=== PATIENT | male | born 1955 | race Caucasian/White ===

== ENCOUNTER 2017-08-30 08:51 | Emergency (ER) | payer MEDICAID ==
--- OUTSIDE RECORDS SUMMARY | 2017-08-30 09:17 | XMS REPORT ---
:1955 External Reference #:[id number] Author Organization [facility] Address [address] [address] Phone [phone] Care Team Providers Name Role Phone Kvng Yanez MD Primary Care Physician Unavailable Payers Type Date Identification Numbers Payment Provider Subscriber Medicaid Effective: Policy Number: [id number] Medicaid Rojas Weaver 2015 Group Name: [id number] [address] PayID: [id number] [place] [address] Medigap Part B Effective: 2013 Policy Number: [id number] Medicaid Rojas Weaver Expires: 2015 PayID: [id number] [address] [place] [address] Workers Compensation Onset: 2011 Policy Number: Brian Weaver [id number] PayID: [id number] [address] [place] [address] Problems Date Description Provider Status Onset: 04/15/2016 Malignant tumor of pancreatic Josse Gomez M.D. Active duct Onset: 12/21/2011 Type II diabetes mellitus Josse Gomez M.D. Active uncontrolled Onset: 05/10/2016 Persistent microalbuminuria Kvng Yanez, Lio associated with type 2 diabetes Sara,FACP mellitus Onset: 04/23/2012 Thrombocytopenic disorder Josse Gomez M.D. Active Onset: 04/23/2012 Anemia Josse Gomez M.D. Active Onset: 04/20/2011 Amato's esophagus Josse Gomez M.D. Active Onset: 04/20/2011 Irritable bowel syndrome Josse Gomez M.D. Active Onset: 04/20/2011 Essential hypertension Josse Gomez M.D. Active Onset: 04/20/2011 Hyperlipidemia Josse Gomez M.D. Active Onset: 04/20/2011 Obesity Josse Gomez M.D. Active Onset: 04/20/2011 Disorder of lumbar disc Josse Gomez M.D. Active Onset: 04/20/2011 Insomnia Josse Gomez M.D. Active Onset: 04/20/2011 Gastroesophageal reflux disease Josse Gomez M.D. Active Onset: 06/21/2011 Lymphedema Josse Gomez M.D. Active Onset: 06/21/2011 Joint effusion of the lower leg Josse Gomez M.D. Active Onset: 07/12/2011 Cervical disc disorder Josse Gomez M.D. Active Onset: 07/12/2011 Shoulder joint pain Josse Gomez M.D. Active Onset: 08/16/2011 Derangement of medial meniscus Josse Gomez M.D. Active Onset: 10/05/2011 Mixed hyperlipidemia Josse Gomez M.D. 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 Inactive Inactive: 05/10/2016 Onset: 04/20/2011 Impending infarction Phuc Rivera JR., M.D. Inactive Inactive: 05/10/2016 Onset: 04/15/2016 Type 2 diabetes mellitus with Josse Gomez M.D. Inactive diabetic polyneuropathy Inactive: 05/10/2016 Onset: 12/05/2012 Cellulitis Josse Gomez M.D. Resolved Resolved: 05/20/2016 Family History Date Family Member(s) Problem(s) Comments Father Coronary Artery Disease (CAD) Mother Diabetes Type II Siblings 4 2 now First Brother due to [place] () Second Brother due to [place] () Social History Type Date Description Comments Marital Status Single Lives With Alone Occupation Disabled Cigarette Use Former Cigarette Smoker ETOH Use Denies alcohol use Smoking Patient is a former smoker Quit 1995 Recreational Drug Use Regularly uses Marijuana Smoking Started smoking at 14, light smoker off and on Daily Caffeine Does Not Consume Caffeine Exercise Type/Frequency Exercises regularly Walks and works with [employer] Allergies, Adverse Reactions, Alerts Date Description Reaction Status Severity Comments 01/19/2011 Quinine active Hives 01/19/2011 Celebrex active 01/19/2011 Lyrica active 05/26/2015 Lyrica S.O.B, Swelling in feet and hands active Mild Medications Medication Date Status Form Strength Qnty SIG Indications Ordering Provider Diclofenac 08/28/ Active Tablets DR 75mg 40tabs take 1 S43.422A Ashely Sodium 2018 tablet Narvaez, twice a day [employer] with food [place] 08/28/ Active Tablets 5-325mg 30tabs 1 tabs S43.422A Ashely 2018 three times Narvaez, a day as [employer] needed pain Marijuana Oil 06/22/ Active 2 puffs Kvng (Eldon) 2016 before each Tala Yanez, meal, M.DJagruti,FACP vaporized Spironolacton 06/22/ Active Tablets 25-25mg 90tabs 1 by mouth I10 Jed Valles e/Hydrochloro 2017 every Tala Yanez, thiazide morning M.D.,FACP BD Insulin 04/25/ Active Misc 29G X 1/2" 150uni use up to E11.65 Jed Valles Syringe 2017 1 ML ts five times Tala Yanez, Safetyglide/1 daily as M.D.,FACP ML/29G X 1/2" directed Humalog 02/27/ Active Solution 100Unit/ML 15ml 10 units sc Kvng Braxton 2017 Pen-Inject qac 2 times Tala Yanez, a day M.D.,FACP breakfast and lunch, and 12 units before dinner Magnesium 02/27/ Active Tablets 400mg 60tabs 1 by mouth Kvng Oxide 2017 twice a day Tala Yanez M.D.,FACP Amlodipine 11/28/ Active Tablets 2.5mg 90tabs 1 by mouth Kvng Besylate 2017 every day Tala Yanez M.D.,FACP Simvastatin 11/28/ Active Tablets 40mg 90tabs take one Kvng 2017 tablet by Tala Yanez, mouth at M.D.,FACP bedtime Levemir 04/25/ Active Solution 100Unit/ML 45ml 45 units in E11.42 Jed Valles Flextouch 2016 Pen-Inject the in the D. Renata, morning M.D.,FACP & inject 40 units daily at bedtime E11.65 Fluticasone 09/10/2015 Active Suspension 50mcg/Act 1units 2 sprays J30.9 Christa Propionate each Be, nostril M.D. everyday prn Lisinopril 10/29/2013 Active Tablets 40mg 90tabs Take One E11.65 Clay- Dana Tablet By storm Edgar Mouth Renata, Every Day M.D.,FAC P Omeprazole 05/07/[address] 20mg 90caps 1 by K21.9 Christa mouth Be, every day M.D. Metoprolol 11/30/2011 Active Tablets 25mg 270tabs take 1 Clay-Dana Tartrate and 1/2 l DJagruti tablets [place], by mouth M.D.,FAC two times P a day Freestyle 05/24/2011 Active 100units use as E11.65 Ronak Lite Test directed Irving, Strip three [employer] times a day or as needed dx: e11.65 BD Pen 01/25/2011 Active Misc 29G X 150units use as E11.65 Clay-Dana Needle/Ultraf 12.7mm directed storm Edgar ine/29G X with [place], 12.7mm novolog M.D.,FAC and P levimir Aspirin Ec Active Tablets DR 81mg 90tabs 1 tablet E11.65 Unknown Lo-Dose daily. Bethanechol Active Tablets 25mg 120tabs take one Clay-Dana Chloride tablet by l Tala mouth Kilgore, four M.D.,FAC times a P day Metformin HCL Active Tablets 1000mg 180tabs Take One E11.42 Clay-Dana Tablet By storm Edgar Mouth [place]ore, Twice A M.D.,FAC Day P E11.65 Creon Active Caps [id number] 270caps Take 1 To 3 Jed Valles Part Capsules By Tala Yanez Mouth 5 Minutes M.D.,FACP Before A Meal Jardiance 11/28/2016 Hx Tablets 10mg 30tabs 1 by mouth Kvng - every night D. Renata, 02/27/2017 M.D.,FACP Humalog 08/29/2016 Hx Solution 100Unit/ML 15ml BS 0-150 no E Kvng Hughesikpen - Pen-Inject units, 1 D. Renata, 10/20/2016 151-200=2 1 M.D.,FACP units, . 201-250=4 4 units, 2 251-300=6 units, 301-350=8 units > 351 call MD Patton 07/01/2016 Hx Tablets 20mg 7tabs take 1 tablet Kvng - every morning DJagruti Yanez, 10/20/2016 for 1 wk M.D.,FACP Magnesium 05/09/2016 Hx Capsules 400mg 60caps by mouth twice E Ronak Oxide - day 8 Irving, [employer] 07/01/2016 3 . 4 2 Spironolacto 05/09/2016 Hx Tablets 25mg 30tabs Take One Tablet I Jed garcia - By Mouth Every 1 D. Renata, 06/22/2017 Day 0 M.D.,FACP Simvastatin 05/04/2016 Hx Tablets 80mg 90tabs take one tablet Josse - by mouth at [facility], 11/28/2016 bedtime M.D. Humalog 04/25/2016 Hx Solution 100Unit/ML 15ml BS 0-150 no E Josse Kwikpen - Pen-Inject units, 1 [place], 05/04/2016 151-200=2 1 M.D. units, . 201-250=4 4 units, 2 251-300=6 units, 301-350=8 units > 351 call MD Domingo-Con M10 01/05/2016 Hx Tablets ER 10Meq 30tabs 1 by mouth E Christa - every day 8 Be, 07/01/2016 7 M.D. . 6 Humulin 12/29/2015 Hx Suspension (70-30)100 20 units in am Christa 70/30 - Unit/ML and 20 units in Be, 04/25/2016 pm M.D. Augmentin 08/27/2015 Hx Tablets 875-125mg 20tabs 1 by mouth 2x J Christa - per day 2 Be, 09/10/2015 0 M.D. . 9 Guaifenesin 08/27/2015 Hx Tablets ER 600mg 42tabs 1 by mouth J Christa ER - 12HR twice a day 2 Lr, 12/29/2015 0 M.D. . 9 Mag-200 02/27/2015 Hx Tablets 400mg 30tabs 2 tab po Christa - everyday Lr, 12/29/2015 M.D. Humulin N 02/16/2015 Hx Supn 100Unit/ML Take 10 units Adryan 70/30 - sc in the [place], [employer] Kwikpen 02/16/2015 morning and 10 units sc every evening Humulin 02/16/2015 Hx Supn (70-30)100 6units 15 units sq in Christa 70/30 - Unit/ML morning and 15 Fox Lr 12/29/2015 units sq in M.D. evening Novolin 02/12/2015 Hx Suspension (70-30)100 6vials 10unit sc in 2 Christa 70/30 - Unit/ML the morning and 5 Be, 02/16/2015 10 sc every 0 M.D. evening . 0 0 Novolog 01/22/2015 Hx Solution 100Unit/ML 2units 12 units every Christa Flexpen - Pen-Inject meal Be, 02/12/2015 M.D. Victoza 07/01/2014 Hx Solution 18mg/3ML 2pen inject 1.2mg 2 Christa - Pen-Inject subcutaneously 5 Lr, 10/28/2014 in the morning 0 M.D. . 0 0 Trazodone 07/01/2014 Hx Tablets 50mg 30tabs 1 tab by mouth 7 Christa HCL - at bedtime as 8 Lr, 10/28/2014 needed 0 M.D. . 5 2 Nitrostat 07/01/2014 Hx Tablets Sub 0.4mg 25tabs one sl q5min up Tyree Caraballo - to 3 doses as Kp 08/27/2015 needed M.D., FACC, FASNC Flonase 06/05/2014 Hx Suspension 50mcg/Act 1units 1 intranasal 4 Christa - puff to each 9 Lr, 10/28/2014 nostril daily 3 M.D. . 9 0 Ventolin HFA 06/05/2014 Hx Aerosol 108(90Base 1units 2 puffs by 4 Christa - ) mcg/Act mouth four 9 Be, 07/01/2014 times a day as 3 M.D. needed . 9 0 BD 05/13/2014 Hx 150units use as directed Kvng OchoaFine - with novolog DJagruti Kilgore, NDL 04/25/2017 and levemir- Sara,FACP 12.8MUU95X onlys uses levemir Penicillin V 11/07/2013 Hx Tablets 250mg 30tabs 1 po tid Christa Potassium - Be, 11/21/2013 M.D. Silvadene 10/22/2013 Hx Cream 1% 400gm topical bid for 9 Christa - 1 wk then prn 1 Be 07/01/2014 7 M.D. . 0 Lorazepam 09/30/2013 Hx Tablets 1mg 10tabs 1 by mouth Christa - twice a day as Be, 08/27/2015 needed M.D. Hydrochlorot 09/17/2013 Hx Tablets 25mg 90tabs 1 by mouth I Christa hiazide - every day 1 Be, 05/04/2016 0 M.D. Augmentin 08/13/2013 Hx Tablets 875-125mg 14tabs one by mouth Ofe - every 12 hours Tex, 09/17/2013 for 1 week M.D. Zofran 07/04/2013 Hx Tablets 4mg 15tabs take 1 tab by 0 Gina - mouth q 8h prn 0 Dung, 10/03/2013 as needed for 8 M.D. nausea . 6 9 Doxycycline 12/05/[address] 100mg 20tabs 1 po bid 6 Josse Hyclate - 8 Pachikara, 12/05/2012 2 M.D. . 9 Doxycycline 12/05/2012 Hx Capsules 100mg 20caps bid po Josse Hyclate - [place], 01/28/2013 M.D. Keflex 04/20/2012 Hx Capsules 500mg 28caps 1 po 4 times Gera - per day Donna, 05/07/2012 M.DJagruti Lisinopril 12/06/2011 Hx Tablets 10mg 90tabs 1 po qd [place] - Pachika, 03/01/2012 M.DJagruti Levemir 10/26/2011 Hx Solution 100Unit/ML 30units Inject 45 Units Lucho E. Flexpen - Pen-Inject Every Morning Le, 04/25/2016 And 50 Units In M.D. The Evening Hydrochlorot 10/05/2011 Hx Tablets 25mg 90tabs 1 po qd Josse hiazide - [place], 10/14/2011 M.D. Naprosyn 08/25/2011 Hx Tablets 500mg 40tabs twice daily Gera - with food x 5 Donna, 10/05/2011 days, then qD M.D. prn Furosemide 06/21/2011 Hx Tablets 40mg 30tabs po qam 4 Josse - 5 [place]ikara, 10/05/2011 7 M.D. . 1 Potassium 06/21/2011 Hx Tablets ER 20Meq 30tabs take 1 tab by 4 [place] Chloride ER - mouth daily 5 Pachikara, 10/05/2011 7 M.D. . 1 Naproxen 06/07/[address] 375mg 30tabs bid 7 Josse - 1 P[place]ikara, 07/12/2011 9 M.D. . 0 6 Zithromax 06/07/2011 Hx Tablets 250mg 1tabs 2tab today and 4 Josse Z-Isaac - 1tab daily x 6 Pachikara, 06/21/2011 4days 6 M.D. . 0 Accu-Chek 05/23/2011 Hx Strips 120units qid and prn 2 Josse Comfort - 5 Pachikara, Curve Test 03/01/2012 0 M.D. Strips . 0 0 Levemir 04/20/2011 Hx Solution 100Unit/ML 5Vials 40 am 45 pm 2 Josse Flexpen - 5 P[place]ikara, 10/26/2011 0 M.D. . 0 0 Novolog 04/20/2011 Hx Solution 100Unit/ML 2units Inject 12 Units 2 Christa Flexpen - Pen-Inject Under The Skin 5 Be, 07/01/2014 Before Every 0 M.D. Meal . 0 0 Benadryl 04/13/2011 Hx Capsules 25mg 60caps 2- 4 tabs for [place] Allergy - allergies Pachikara, 04/13/2011 M.D. Zolpidem 01/19/2011 Hx Tablets 10mg 30tabs 1/2 to 1 tab po 7 Josse Tartrate - qhs prn 8 Pachikara, 04/20/2011 0 M.D. . 5 2 Nucynta Hx Tablets 100mg 60tabs 1 po q 6hrs Unknown - 06/21/2011 Oxycontin Hx Tablets ER 40mg 60tabs 1 po bid Unknown - 12HR 10/28/2014 Hydrochlorot Hx Capsules 12.5mg 90caps 1 po qd Unknown hiazide - 01/19/2011 Metoprolol Hx Tablets ER 25mg 180tabs 1 po bid [place] - [facility], 11/30/2011 M.D. Aspirin Hx Tablets DR 325mg 1 po qd Unknown - 12/21/2011 Famotidine Hx Tablets 40mg 90tabs 1 po qd Josse - [facility], 05/07/2012 M.D. Plavix Hx Tablets 75mg 90tabs 1 po qd Josse - [facility], 03/16/2012 M.D. Lisinopril Hx Tablets 10mg 45tabs 1/2 tab qd po Josse - [facility], 12/06/2011 M.D. Levemir Hx Solution 100Unit/ML 5Vials 40 units q12h [facility] 04/[facility] M.D. Novolog Hx Solution 100Unit/ML 1Box 10units subq [place] [facility] meal M.D. Percocet Hx Tablets 10-325mg 60tabs 1 po qid prn [place] - [facility], 10/05/2011 M.D. Hydrochlorot Hx Capsules 12.5mg 30caps 1 po qd [place] [facility], 09/17/2013 M.D. Nucynta Hx Tablets 100mg 2-4 daily Unknown - 10/28/2014 Lisinopril Hx Tablets 20mg 90tabs Take One Tablet [place] - By Mouth Every Pachikara, 10/29/2013 Day M.D. Zyrtec Hx Tablets 10mg 30tabs 1 po qd prn Unknown Allergy - 07/01/2014 Simvastatin Hx Tablets 80mg 90tabs Take One Tablet Josse - By Mouth At [place], 04/15/2016 Bedtime M.D. Magnesium Hx Tablets 400mg 1 by mouth bid Unknown Oxide - 10/20/2016 Potassium Hx Tablets ER 20Meq 1 by mouth Unknown Chloride ER - every day 10/20/2016 Prochlorpera Hx Tablets 10mg 1 po four times Unknown zine Maleate - a day prn 11/28/2016 Ondansetron Hx Tablets 4mg one by mouth Unknown HCL - every 8 hours 11/28/2016 as needed for nausea Medications Administered in Office Medication Date Status Form Strength Qnty SIG Indications Ordering Provider Inj, Administered Injection Tyree Caraballo Regadenoson, 017 Kp, 0.1 MG M.Tala, FAC, FASTX Technetium TC Administered Injection Tyree Caraballo 99M 017 Kp Tetrofosmin, Sara, [facility], Per Unit Dose FASTX Up To 40 Millicuries Immunizations CPT Code Status Date Vaccine Lot # [id number] Given 06/22/2017 Influenza Virus Vaccine, Quadrivalent, Split, [id number] Preservative Free 27399 Given 05/20/2016 Influenza Virus Vaccine, Quadrivalent, Split, [id number] Preservative Free 02254 Given 05/26/2015 Influenza Virus Vaccine, Quadrivalent, Split, [id number] Preservative Free 33062 Given 10/28/2014 Hepatitis B Vaccine Adult Dosage [id number] 12491 Given 10/28/2014 Pneumococcal Conjugate Vaccine 13 Valent For [id number] Intramuscular Use 16101 Given 06/05/2014 Flu Vaccine Split Virus Preservative Free For [id number] Indiv 3Yr Older 34311 Given 11/21/2013 Hepatitis B Vaccine Adult Dosage [id number] 68238 Given 10/22/2013 Hepatitis B Vaccine Adult Dosage [id number] 57132 Given 07/04/2013 Flu Vaccine Split Virus Preservative Free For [id number] Indiv 3Yr Older 46297 Given 04/23/2012 Influenza Virus 3Yrs & Over 32697 Given 07/12/2011 Influenza Virus 3Yrs & Over 95527 Given 07/12/2011 Influenza Virus 3Yrs & Over [id number] 02533 Given 08/14/2006 Tdap - Tetanus/Diptheria/Acellular Pertussis Vital Signs Date Vital Result Comment 08/28/2017 Weight 289.00 lb Heart Rate 63 /min BP Systolic Sitting 133 mmHg BP Diastolic Sitting 82 mmHg Body Temperature 97.3 F O2 % BldC Oximetry 98 % 06/22/2017 Weight 301.00 lb Heart Rate 66 /min BP Systolic Sitting 160 mmHg BP Diastolic Sitting 80 mmHg BP Systolic Recheck 180 mmHg BP Diastolic Recheck 92 mmHg Body Temperature 97.1 F O2 % BldC Oximetry 97 % 02/27/2017 Height 74 inches 6'2" Weight 281.00 lb Heart Rate 69 /min BP Systolic Sitting 142 mmHg BP Diastolic Sitting 82 mmHg BP Systolic Recheck 132 mmHg BP Diastolic Recheck 88 mmHg Body Temperature 96.7 F O2 % BldC Oximetry 99 % BMI (Body Mass Index) 36.1 kg/m2 11/28/2016 Height 74 inches 6'2" Weight 290.00 lb Heart Rate 70 /min BP Systolic Sitting 180 mmHg 193/86 with auto cuff BP Diastolic Sitting 94 mmHg 193/86 with auto cuff BP Systolic Recheck 172 mmHg BP Diastolic Recheck 88 mmHg Body Temperature 98.0 F O2 % BldC Oximetry 98 % BMI (Body Mass Index) 37.2 kg/m2 11/07/2016 Height 74 inches 6'2" Weight 295.00 lb Heart Rate 56 /min BP Systolic Sitting 140 mmHg Rue, large cuff BP Diastolic Sitting 80 mmHg Rue, large cuff BP Systolic Standing 148 mmHg Rue, Large cuff BP Diastolic Standing 80 mmHg Rue, Large cuff BMI (Body Mass Index) 37.9 kg/m2 Ejection Fraction 50-55% 11/04/16 10/21/2016 Height 74 inches 6'2" Weight 293.00 lb Heart Rate 78 /min BP Systolic 160 mmHg LC left BP Diastolic 82 mmHg LC left BP Systolic Sitting 158 mmHg LC right BP Diastolic Sitting 84 mmHg LC right BP Systolic Standing 170 mmHg LC right BP Diastolic Standing 90 mmHg LC right Respiratory Rate 18 /min Pain Level 3 O2 % BldC Oximetry 97 % Ra BMI (Body Mass Index) 37.6 kg/m2 08/29/2016 Weight 290.38 lb Heart Rate 64 /min BP Systolic Sitting 152 mmHg BP Diastolic Sitting 78 mmHg BP Systolic Recheck 144 mmHg BP Diastolic Recheck 84 mmHg Body Temperature 97.1 F O2 % BldC Oximetry 98 % 07/01/2016 Weight 289.00 lb Heart Rate 85 /min BP Systolic Sitting 178 mmHg BP Diastolic Sitting 94 mmHg Body Temperature 97.9 F O2 % BldC Oximetry 97 % 05/20/2016 Height 75.25 inches 6'3.25" Weight 282.50 lb Heart Rate 82 /min BP Systolic Sitting 130 mmHg BP Diastolic Sitting 76 mmHg Body Temperature 97.4 F O2 % BldC Oximetry 98 % BMI (Body Mass Index) 35.1 kg/m2 05/09/2016 Weight 304.12 lb Heart Rate 61 /min BP Systolic Sitting 146 mmHg BP Diastolic Sitting 80 mmHg Body Temperature 96.8 F O2 % BldC Oximetry 97 % 04/15/2016 Weight 282.00 lb Heart Rate 90 /min BP Systolic 120 mmHg BP Diastolic 70 mmHg Body Temperature 97.5 F O2 % BldC Oximetry 97 % 01/14/2016 Weight 290.00 lb Heart Rate 67 /min BP Systolic Sitting 143 mmHg BP Diastolic Sitting 79 mmHg O2 % BldC Oximetry 99 % 01/05/2016 Weight 297.00 lb Heart Rate 69 /min BP Systolic Sitting 170 mmHg BP Diastolic Sitting 82 mmHg Body Temperature 98.6 F 12/29/2015 Weight 298.00 lb Heart Rate 56 /min BP Systolic Sitting 138 mmHg BP Diastolic Sitting 76 mmHg Body Temperature 96.4 F O2 % BldC Oximetry 96 % 09/10/2015 Height 75.25 inches 6'3.25" Weight 316.00 lb Heart Rate 65 /min BP Systolic Sitting 152 mmHg BP Diastolic Sitting 78 mmHg Body Temperature 97.5 F O2 % BldC Oximetry 98 % BMI (Body Mass Index) 39.2 kg/m2 08/27/2015 Height 75.25 inches 6'3.25" Weight 317.00 lb Heart Rate 62 /min BP Systolic 146 mmHg BP Diastolic 79 mmHg Body Temperature 97.4 F O2 % BldC Oximetry 96 % BMI (Body Mass Index) 39.4 kg/m2 05/26/2015 Height 75.25 inches 6'3.25" Weight 320.00 lb Heart Rate 65 /min BP Systolic Sitting 136 mmHg BP Diastolic Sitting 82 mmHg Body Temperature 97.1 F Pain Level 0 O2 % BldC Oximetry 98 % BMI (Body Mass Index) 39.7 kg/m2 04/07/2015 Height 75.25 inches 6'3.25" Weight 314.00 lb Heart Rate 54 /min BP Systolic Sitting 128 mmHg BP Diastolic Sitting 80 mmHg Body Temperature 98.7 F O2 % BldC Oximetry 98 % BMI (Body Mass Index) 39.0 kg/m2 03/06/2015 Height 75.25 inches 6'3.25" Weight 311.00 lb Heart Rate 62 /min BP Systolic Sitting 128 mmHg BP Diastolic Sitting 84 mmHg Body Temperature 98.6 F O2 % BldC Oximetry 97 % BMI (Body Mass Index) 38.6 kg/m2 02/12/2015 Height 75.25 inches 6'3.25" Weight 314.25 lb Heart Rate 61 /min BP Systolic Sitting 148 mmHg BP Diastolic Sitting 88 mmHg Body Temperature 96.5 F O2 % BldC Oximetry 98 % BMI (Body Mass Index) 39.0 kg/m2 10/28/2014 Weight 316.25 lb Heart Rate 78 /min BP Systolic Sitting 146 mmHg BP Diastolic Sitting 90 mmHg Body Temperature 97.2 F 07/01/2014 Weight 335.50 lb Heart Rate 68 /min BP Systolic 150 mmHg BP Diastolic 80 mmHg Respiratory Rate 18 /min 06/05/2014 Weight 339.00 lb Heart Rate 64 /min BP Systolic 140 mmHg BP Diastolic 80 mmHg BP Systolic Sitting 179 mmHg BP Diastolic Sitting 93 mmHg Body Temperature 97.0 F 02/28/2014 Weight 332.00 lb Heart Rate 56 /min BP Systolic Sitting 124 mmHg BP Diastolic Sitting 80 mmHg 11/21/2013 Height 75 inches 6'3" Weight 326.50 lb Heart Rate 65 /min BP Systolic Standing 139 mmHg BP Diastolic Standing 77 mmHg Body Temperature 97.2 F BMI (Body Mass Index) 40.8 kg/m2 11/08/2013 Height 75 inches 6'3" Weight 328.00 lb with shoes BP Systolic Sitting 164 mmHg LA, Lg cuff BP Diastolic Sitting 86 mmHg LA, Lg cuff BP Systolic Standing 160 mmHg LA BP Diastolic Standing 88 mmHg LA Respiratory Rate 16 /min BMI (Body Mass Index) 41.0 kg/m2 10/29/2013 Height 74.5 inches 6'2.50" Weight 328.00 lb Heart Rate 72 /min BP Systolic Sitting 156 mmHg BP Diastolic Sitting 84 mmHg Body Temperature 96.6 F BMI (Body Mass Index) 41.5 kg/m2 10/22/2013 Weight 327.50 lb Heart Rate 61 /min BP Systolic Sitting 159 mmHg BP Diastolic Sitting 80 mmHg BP Systolic Standing 124 mmHg BP Diastolic Standing 85 mmHg Body Temperature 96.8 F 10/03/2013 Weight 333.00 lb Heart Rate 78 /min BP Systolic Sitting 150 mmHg BP Diastolic Sitting 84 mmHg Respiratory Rate 20 /min Body Temperature 97.4 F O2 % BldC Oximetry 96 % 09/17/2013 Weight 335.00 lb Heart Rate 60 /min BP Systolic Sitting 174 mmHg BP Diastolic Sitting 88 mmHg 07/04/2013 Weight 336.00 lb Heart Rate 72 /min BP Systolic Sitting 112 mmHg BP Diastolic Sitting 70 mmHg Body Temperature 98.6 F 05/28/2013 Height 74.75 inches 6'2.75" Weight 338.50 lb Heart Rate 60 /min BP Systolic Sitting 128 mmHg BP Diastolic Sitting 78 mmHg Body Temperature 97.1 F BMI (Body Mass Index) 42.6 kg/m2 01/28/2013 Height 74.75 inches 6'2.75" Weight 342.50 lb Heart Rate 61 /min BP Systolic Sitting 128 mmHg BP Diastolic Sitting 74 mmHg O2 % BldC Oximetry 98 % BMI (Body Mass Index) 43.1 kg/m2 12/05/2012 Weight 346.75 lb Heart Rate 84 /min BP Systolic Sitting 150 mmHg BP Diastolic Sitting 84 mmHg Body Temperature 96.2 F 10/24/2012 Height 74.75 inches 6'2.75" Weight 339.75 lb Heart Rate 68 /min BP Systolic Sitting 150 mmHg BP Diastolic Sitting 90 mmHg BMI (Body Mass Index) 42.7 kg/m2 10/24/2012 Height 74.75 inches 6'2.75" 05/07/2012 Height 74.75 inches 6'2.75" Weight 337.00 lb Heart Rate 76 /min BP Systolic Sitting 134 mmHg BP Diastolic Sitting 76 mmHg BMI (Body Mass Index) 42.4 kg/m2 04/23/2012 Height 74.75 inches 6'2.75" Weight 337.38 lb Heart Rate 78 /min BP Systolic Sitting 130 mmHg BP Diastolic Sitting 72 mmHg BMI (Body Mass Index) 42.4 kg/m2 03/16/2012 Height 74.75 inches 6'2.75" Weight 332.00 lb Heart Rate 82 /min BP Systolic Sitting 130 mmHg BP Diastolic Sitting 72 mmHg Body Temperature 98.3 F lt ear BMI (Body Mass Index) 41.8 kg/m2 03/01/2012 Height 74.75 inches 6'2.75" Weight 333.25 lb Heart Rate 60 /min BP Systolic Sitting 128 mmHg BP Diastolic Sitting 88 mmHg BMI (Body Mass Index) 41.9 kg/m2 12/21/2011 Height 74.75 inches 6'2.75" Weight 341.75 lb Heart Rate 88 /min BP Systolic Sitting 140 mmHg BP Diastolic Sitting 80 mmHg BMI (Body Mass Index) 43.0 kg/m2 11/09/2011 Height 74.75 inches 6'2.75" Weight 336.00 lb Heart Rate 72 /min BP Systolic Sitting 136 mmHg L BP Diastolic Sitting 78 mmHg L BMI (Body Mass Index) 42.3 kg/m2 10/26/2011 Height 74.75 inches 6'2.75" Weight 335.00 lb Heart Rate 78 /min BP Systolic Sitting 172 mmHg L BP Diastolic Sitting 88 mmHg L BMI (Body Mass Index) 42.1 kg/m2 10/05/2011 Height 74.75 inches 6'2.75" Weight 335.00 lb Heart Rate 68 /min BP Systolic Sitting 134 mmHg BP Diastolic Sitting 90 mmHg BMI (Body Mass Index) 42.1 kg/m2 08/16/2011 Height 74.75 inches 6'2.75" Weight 332.00 lb Heart Rate 80 /min BP Systolic Sitting 122 mmHg BP Diastolic Sitting 78 mmHg BMI (Body Mass Index) 41.8 kg/m2 07/12/2011 Height 74.75 inches 6'2.75" Weight 332.00 lb Heart Rate 68 /min BP Systolic Sitting 123 mmHg BP Diastolic Sitting 80 mmHg BMI (Body Mass Index) 41.8 kg/m2 06/28/2011 Height 74.75 inches 6'2.75" Weight 332.00 lb Heart Rate 68 /min BP Systolic Sitting 138 mmHg BP Diastolic Sitting 70 mmHg BMI (Body Mass Index) 41.8 kg/m2 06/21/2011 Height 74.75 inches 6'2.75" Weight 334.00 lb Heart Rate 84 /min BP Systolic Sitting 150 mmHg BP Diastolic Sitting 100 mmHg BMI (Body Mass Index) 42.0 kg/m2 06/07/2011 Height 74.75 inches 6'2.75" Weight 323.00 lb Heart Rate 64 /min BP Systolic Sitting 135 mmHg BP Diastolic Sitting 80 mmHg Body Temperature 97.9 F BMI (Body Mass Index) 40.6 kg/m2 04/20/2011 Weight 324.00 lb Heart Rate 66 /min BP Systolic Sitting 120 mmHg BP Diastolic Sitting 78 mmHg 01/19/2011 Height 76 inches 6'4" Weight 331.00 lb Heart Rate 62 /min BP Systolic Sitting 140 mmHg BP Diastolic Sitting 82 mmHg BMI (Body Mass Index) 40.3 kg/m2 Results Test Date Test Result H/L Range Note Laboratory test finding 06/22/2017 Hemoglobin A1c 7.4 High 5-7 Urine Microalbumin Random 06/22/2017 Urine Creatinine 114.69 mg/dL Ur Microalbumin (mg/L) 983.4 mg/L Urine Microalbumin/Creatinine 857.4 ug/mg High <31 Comp Metabolic Panel 02/17/2017 Sodium 137 mmol/L 133-145 Potassium 4.4 mmol/L 3.5-5.0 Chloride 102 mmol/L 101-111 Co2 Carbon Dioxide 27 mmol/L 22-32 Anion Gap 8 mmol/L 2-11 Glucose 227 mg/dL High 70-100 Blood Urea Nitrogen 18 mg/dL 6-24 Creatinine 1.14 mg/dL 0.67-1.17 BUN/Creatinine Ratio 15.8 8-20 Calcium 9.0 mg/dL 8.6-10.3 Total Protein 6.4 g/dL 6.4-8.9 Albumin 3.9 g/dL 3.2-5.2 Globulin 2.5 g/dL 2-4 Albumin/Globulin Ratio 1.6 1-3 Total Bilirubin 0.70 mg/dL 0.2-1.0 Alkaline Phosphatase 95 U/L 34-104 Alt 22 U/L 7-52 Ast 25 U/L 13-39 Egfr Non- 65.1 >60 Egfr 83.7 >60 1 CBC Auto Diff 02/17/2017 White Blood Count 6.1 10^3/uL 3.5-10.8 Red Blood Count 4.59 10^6/uL 4.0-5.4 Hemoglobin 13.1 g/dL Low 14.0-18.0 Hematocrit 39 % Low 42-52 Mean Corpuscular Volume 86 fL 80-94 Mean Corpuscular Hemoglobin 29 pg 27-31 Mean Corpuscular HGB Conc 33 g/dL 31-36 Red Cell Distribution Width 14 % 10.5-15 Platelet Count 122 10^3/uL Low 150-450 Mean Platelet Volume 9 um3 7.4-10.4 Abs Neutrophils 4.0 10^3/uL 1.5-7.7 Abs Lymphocytes 1.1 10^3/uL 1.0-4.8 Abs Monocytes 0.7 10^3/uL 0-0.8 Abs Eosinophils 0.2 10^3/uL 0-0.6 Abs Basophils 0 10^3/uL 0-0.2 Abs Nucleated RBC 0.01 10^3/uL Granulocyte % 65.7 % 38-83 Lymphocyte % 18.1 % Low 25-47 Monocyte % 12.2 % High 1-9 Eosinophil % 3.2 % 0-6 Basophil % 0.8 % 0-2 Nucleated Red Blood Cells % 0.1 Lipid Profile (Trig/Chol/HDL) 02/17/2017 Triglycerides 71 mg/dL 2 Cholesterol 118 mg/dL 3 HDL Cholesterol 48.8 mg/dL 4 LDL Cholesterol 55 mg/dL 5 Laboratory test finding 02/17/2017 Magnesium 1.5 mg/dL Low 1.9-2.7 6 Hemoglobin A1c (Glyco HGB) 9.3 % High Less than 6.0 7 Laboratory test finding 11/28/2016 Hemoglobin A1c 8.0 High 5-7 Laboratory test finding 10/18/2016 Point of Care Glucose 161 mg/dL High 74 -106 8 Laboratory test finding 10/17/2016 Point of Care Glucose 242 mg/dL High 74 -106 9 Laboratory test finding 10/17/2016 Point of Care Glucose 253 mg/dL High 74 -106 10 Laboratory test finding 10/05/2016 Blood Urea Nitrogen 19 mg/dL 6-24 BUN Creatinine 10/05/2016 Creatinine 1.04 mg/dL 0.67-1.17 Egfr Non- 72.6 >60 Egfr 93.4 >60 11 Laboratory test finding 08/29/2016 Hemoglobin A1c 10.0 High 5-7 Comp Metabolic Panel 05/24/2016 Sodium 137 mmol/L 133-145 Potassium 4.5 mmol/L 3.5-5.0 Chloride 101 mmol/L 101-111 Co2 Carbon Dioxide 29 mmol/L 22-32 Anion Gap 7 mmol/L 2-11 Glucose 346 mg/dL High 70-100 Blood Urea Nitrogen 16 mg/dL 6-24 Creatinine 1.11 mg/dL 0.67-1.17 BUN/Creatinine Ratio 14.4 8-20 Calcium 8.8 mg/dL 8.6-10.3 Total Protein 5.8 g/dL Low 6.4-8.9 Albumin 3.5 g/dL 3.2-5.2 Globulin 2.3 g/dL 2-4 Albumin/Globulin Ratio 1.5 1-3 Total Bilirubin 0.40 mg/dL 0.2-1.0 Alkaline Phosphatase 91 U/L 34-104 Alt 15 U/L 7-52 Ast 19 U/L 13-39 Egfr Non- 67.3 >60 Egfr 86.6 >60 12 Laboratory test finding 05/24/2016 Magnesium 1.2 mg/dL Low 1.9-2.7 CBC Auto Diff 05/24/2016 White Blood Count 10.3 10^3/uL 3.5-10.8 Red Blood Count 3.81 10^6/uL Low 4.0-5.4 Hemoglobin 11.5 g/dL Low 14.0-18.0 Hematocrit 34 % Low 42-52 Mean Corpuscular Volume 89 fL 80-94 Mean Corpuscular Hemoglobin 30 pg 27-31 Mean Corpuscular HGB Conc 34 g/dL 31-36 Red Cell Distribution Width 21 % High 10.5-15 Platelet Count 156 10^3/uL 150-450 Mean Platelet Volume 9 um3 7.4-10.4 Abs Neutrophils 7.5 10^3/uL 1.5-7.7 Abs Lymphocytes 1.8 10^3/uL 1.0-4.8 Abs Monocytes 0.9 10^3/uL High 0-0.8 Abs Eosinophils 0 10^3/uL 0-0.6 Abs Basophils 0.1 10^3/uL 0-0.2 Abs Nucleated RBC 0 10^3/uL Granulocyte % 72.6 % 38-83 Lymphocyte % 17.5 % Low 25-47 Monocyte % 9.1 % High 1-9 Eosinophil % 0.2 % 0-6 Basophil % 0.6 % 0-2 Nucleated Red Blood Cells % 0 CBC Auto Diff 05/10/2016 White Blood Count 7.6 10^3/uL 3.5-10.8 Red Blood Count 3.40 10^6/uL Low 4.0-5.4 Hemoglobin 9.9 g/dL Low 14.0-18.0 Hematocrit 30 % Low 42-52 Mean Corpuscular Volume 87 fL 80-94 Mean Corpuscular Hemoglobin 29 pg 27-31 Mean Corpuscular HGB Conc 34 g/dL 31-36 Red Cell Distribution Width 18 % High 10.5-15 Platelet Count 117 10^3/uL Low 150-450 Mean Platelet Volume 8 um3 7.4-10.4 Abs Neutrophils 5.5 10^3/uL 1.5-7.7 Abs Lymphocytes 1.5 10^3/uL 1.0-4.8 Abs Monocytes 0.5 10^3/uL 0-0.8 Abs Eosinophils 0.1 10^3/uL 0-0.6 Abs Basophils 0 10^3/uL 0-0.2 Abs Nucleated RBC 0.01 10^3/uL Granulocyte % 72.2 % 38-83 Lymphocyte % 19.5 % Low 25-47 Monocyte % 6.8 % 1-9 Eosinophil % 1.2 % 0-6 Basophil % 0.3 % 0-2 Nucleated Red Blood Cells % 0.1 Comp Metabolic Panel 05/10/2016 Sodium 138 mmol/L 133-145 Potassium 4.8 mmol/L 3.5-5.0 Chloride 103 mmol/L 101-111 Co2 Carbon Dioxide 31 mmol/L 22-32 Anion Gap 4 mmol/L 2-11 Glucose 301 mg/dL High 70-100 Blood Urea Nitrogen 15 mg/dL 6-24 Creatinine 0.90 mg/dL 0.67-1.17 BUN/Creatinine Ratio 16.7 8-20 Calcium 8.1 mg/dL Low 8.6-10.3 Total Protein 5.8 g/dL Low 6.4-8.9 Albumin 3.3 g/dL 3.2-5.2 Globulin 2.5 g/dL 2-4 Albumin/Globulin Ratio 1.3 1-3 Total Bilirubin 0.40 mg/dL 0.2-1.0 Alkaline Phosphatase 94 U/L 34-104 Alt 24 U/L 7-52 Ast 27 U/L 13-39 Egfr Non- 85.8 >60 Egfr 110.3 >60 13 Lipid Profile (Trig/Chol/HDL) 05/10/2016 Triglycerides 81 mg/dL 14 Cholesterol 105 mg/dL 15 HDL Cholesterol 38.2 mg/dL 16 LDL Cholesterol 51 mg/dL 17 Urine Microalbumin Random 05/10/2016 Urine Creatinine 43.09 mg/dL Ur Microalbumin (mg/L) 331.5 mg/L Urine Microalbumin/Creatinine 769.3 ug/mg High <31 Basic Metabolic Panel 05/10/2016 Sodium 139 mmol/L 133-145 Potassium 4.6 mmol/L 3.5-5.0 Chloride 104 mmol/L 101-111 Co2 Carbon Dioxide 29 mmol/L 22-32 Anion Gap 6 mmol/L 2-11 Glucose 299 mg/dL High 70-100 Blood Urea Nitrogen 15 mg/dL 6-24 Creatinine 0.88 mg/dL 0.67-1.17 BUN/Creatinine Ratio 17.0 8-20 Calcium 8.0 mg/dL Low 8.6-10.3 Egfr Non- 88.0 >60 Egfr 113.2 >60 18 Laboratory test finding 05/10/2016 Magnesium 1.3 mg/dL Low 1.9-2.7 Laboratory test finding 05/10/2016 Ferritin 180.4 ng/mL 24-336 Vitamin B12 1173 pg/mL High 180-914 19 Folic Acid (Folate) > 20.00 ng/mL >3.99 Iron & Iron Binding Capacity 05/10/2016 Iron 74 g/dL 50-212 Unsaturated Iron Binding 291 g/dL Total Iron Binding Capacity 365 g/dL 250-450 % Iron Saturation 20 % 15-55 CBC Auto Diff 05/03/2016 White Blood Count 4.8 10^3/uL 3.5-10.8 Red Blood Count 3.54 10^6/uL Low 4.0-5.4 Hemoglobin 9.8 g/dL Low 14.0-18.0 Hematocrit 30 % Low 42-52 Mean Corpuscular Volume 83 fL 80-94 Mean Corpuscular Hemoglobin 28 pg 27-31 Mean Corpuscular HGB Conc 33 g/dL 31-36 Red Cell Distribution Width 17 % High 10.5-15 Platelet Count 120 10^3/uL Low 150-450 Mean Platelet Volume 8 um3 7.4-10.4 Abs Neutrophils 3.4 10^3/uL 1.5-7.7 Abs Lymphocytes 0.7 10^3/uL Low 1.0-4.8 Abs Monocytes 0.7 10^3/uL 0-0.8 Abs Eosinophils 0 10^3/uL 0-0.6 Abs Basophils 0 10^3/uL 0-0.2 Abs Nucleated RBC 0 10^3/uL Granulocyte % 70.2 % 38-83 Lymphocyte % 14.1 % Low 25-47 Monocyte % 15.1 % High 1-9 Eosinophil % 0.2 % 0-6 Basophil % 0.4 % 0-2 Nucleated Red Blood Cells % 0 Comp Metabolic Panel 05/03/2016 Sodium 140 mmol/L 133-145 Potassium 3.0 mmol/L Low 3.5-5.0 Chloride 109 mmol/L 101-111 Co2 Carbon Dioxide 20 mmol/L Low 22-32 Anion Gap 11 mmol/L 2-11 Glucose 47 mg/dL Low 70-100 Blood Urea Nitrogen 23 mg/dL 6-24 Creatinine 1.22 mg/dL High 0.67-1.17 BUN/Creatinine Ratio 18.9 8-20 Calcium 7.8 mg/dL Low 8.6-10.3 Total Protein 6.2 g/dL Low 6.4-8.9 Albumin 3.3 g/dL 3.2-5.2 Globulin 2.9 g/dL 2-4 Albumin/Globulin Ratio 1.1 1-3 Total Bilirubin 0.40 mg/dL 0.2-1.0 Alkaline Phosphatase 76 U/L 34-104 Alt 16 U/L 7-52 Ast 23 U/L 13-39 Egfr Non- 60.4 >60 Egfr 77.7 >60 20 Laboratory test finding 05/03/2016 Troponin-I (TnI) 0.01 ng/mL <0.03 21 TSH (Thyroid Stim Horm) 1.98 mcIU/mL 0.34-5.60 Magnesium 0.9 mg/dL Low 1.9-2.7 22 Hemoglobin A1c (Glyco HGB) 7.5 % High Less than 6.0 23 Laboratory test finding 05/02/2016 Lactic Acid 2.2 mmol/L High 0.5-2.0 24 B-Type Natriuretic Peptide BNP 84 pg/mL 25 Comp Metabolic Panel 05/02/2016 Sodium 135 mmol/L 133-145 Potassium 2.8 mmol/L Low 3.5-5.0 Chloride 102 mmol/L 101-111 Co2 Carbon Dioxide 20 mmol/L Low 22-32 Anion Gap 13 mmol/L High 2-11 Glucose 102 mg/dL High 70-100 Blood Urea Nitrogen 26 mg/dL High 6-24 Creatinine 1.48 mg/dL High 0.67-1.17 BUN/Creatinine Ratio 17.6 8-20 Calcium 8.0 mg/dL Low 8.6-10.3 Total Protein 6.6 g/dL 6.4-8.9 Albumin 3.5 g/dL 3.2-5.2 Globulin 3.1 g/dL 2-4 Albumin/Globulin Ratio 1.1 1-3 Total Bilirubin 0.50 mg/dL 0.2-1.0 Alkaline Phosphatase 72 U/L 34-104 Alt 13 U/L 7-52 Ast 18 U/L 13-39 Egfr Non- 48.3 >60 Egfr 62.1 >60 26 Laboratory test finding 05/02/2016 C Reactive Protein 79.19 mg/L High &lt ; 5.00 27 Troponin-I (TnI) 0.01 ng/mL <0.03 28 CBC Auto Diff 05/02/2016 White Blood Count 4.4 10^3/uL 3.5-10.8 Red Blood Count 3.76 10^6/uL Low 4.0-5.4 Hemoglobin 10.5 g/dL Low 14.0-18.0 Hematocrit 31 % Low 42-52 Mean Corpuscular Volume 84 fL 80-94 Mean Corpuscular Hemoglobin 28 pg 27-31 Mean Corpuscular HGB Conc 34 g/dL 31-36 Red Cell Distribution Width 17 % High 10.5-15 Platelet Count 107 10^3/uL Low 150-450 Mean Platelet Volume 8 um3 7.4-10.4 Abs Neutrophils 2.6 10^3/uL 1.5-7.7 Abs Lymphocytes 0.8 10^3/uL Low 1.0-4.8 Abs Monocytes 0.9 10^3/uL High 0-0.8 Abs Eosinophils 0.1 10^3/uL 0-0.6 Abs Basophils 0 10^3/uL 0-0.2 Abs Nucleated RBC 0 10^3/uL Granulocyte % 58.2 % 38-83 Lymphocyte % 19.0 % Low 25-47 Monocyte % 20.8 % High 1-9 Eosinophil % 1.4 % 0-6 Basophil % 0.6 % 0-2 Nucleated Red Blood Cells % 0.1 Inr/Protime 05/02/2016 Inr 1.21 High 0.89-1.11 Laboratory test finding 05/02/2016 Partial Thrombo Time 25.8 seconds Low 26.0-36.3 PTT Fibrinogen 561 mg/dL High 110.8-404.3 Laboratory test 05/02/2016 Point of Care Glucose 115 mg/dL High 74-106 29 finding Laboratory test 04/15/2016 Hemoglobin A1c 7.5 High 5-7 finding CBC Auto Diff 01/09/2016 White Blood Count 10.1 10^3/uL 3.5-10.8 Red Blood Count 4.33 10^6/uL 4.0-5.4 Hemoglobin 12.4 g/dL Low 14.0-18.0 Hematocrit 38 % Low 42-52 Mean Corpuscular Volume 87 fL 80-94 Mean Corpuscular Hemoglobin 29 pg 27-31 Mean Corpuscular HGB Conc 33 g/dL 31-36 Red Cell Distribution Width 16 % High 10.5-15 Platelet Count 199 10^3/uL 150-450 Mean Platelet Volume 11 um3 High 7.4-10.4 Abs Neutrophils 6.4 10^3/uL 1.5-7.7 Abs Lymphocytes 2.3 10^3/uL 1.0-4.8 Abs Monocytes 1.0 10^3/uL High 0-0.8 Abs Eosinophils 0.4 10^3/uL 0-0.6 Abs Basophils 0.1 10^3/uL 0-0.2 Abs Nucleated RBC 0.05 10^3/uL Granulocyte % 62.8 % 38-83 Lymphocyte % 22.6 % Low 25-47 Monocyte % 9.6 % High 1-9 Eosinophil % 4.0 % 0-6 Basophil % 1.0 % 0-2 Nucleated Red Blood Cells % 0.5 Laboratory test finding 01/09/2016 Lactic Acid 1.4 mmol/L 0.5-2.0 30 Comp Metabolic Panel 01/09/2016 Sodium 135 mmol/L 133-145 Potassium 3.5 mmol/L 3.5-5.0 Chloride 99 mmol/L Low 101-111 Co2 Carbon Dioxide 27 mmol/L 22-32 Anion Gap 9 mmol/L 2-11 Glucose 205 mg/dL High 70-100 Blood Urea Nitrogen 19 mg/dL 6-24 Creatinine 1.20 mg/dL High 0.67-1.17 BUN/Creatinine Ratio 15.8 8-20 Calcium 9.1 mg/dL 8.6-10.3 Total Protein 6.9 g/dL 6.4-8.9 Albumin 3.7 g/dL 3.2-5.2 Globulin 3.2 g/dL 2-4 Albumin/Globulin Ratio 1.2 1-3 Total Bilirubin 6.50 mg/dL High 0.2-1.0 Alkaline Phosphatase 265 U/L High 34-104 Alt 127 U/L High 7-52 Ast 143 U/L High 13-39 Egfr Non- 61.6 >60 Egfr 79.2 >60 31 Laboratory test finding 01/09/2016 Magnesium 1.4 mg/dL Low 1.9-2.7 Lipase 105 U/L High 11.0-82.0 Comp Metabolic Panel 01/05/2016 Sodium 141 mmol/L 133-145 Potassium 2.9 mmol/L Low 3.5-5.0 Chloride 100 mmol/L Low 101-111 Co2 Carbon Dioxide 30 mmol/L 22-32 Anion Gap 11 mmol/L 2-11 Glucose 123 mg/dL High 70-100 Blood Urea Nitrogen 13 mg/dL 6-24 Creatinine 1.15 mg/dL 0.67-1.17 BUN/Creatinine Ratio 11.3 8-20 Calcium 8.5 mg/dL Low 8.6-10.3 Total Protein 5.9 g/dL Low 6.4-8.9 Albumin 3.5 g/dL 3.2-5.2 Globulin 2.4 g/dL 2-4 Albumin/Globulin Ratio 1.5 1-3 Total Bilirubin 7.00 mg/dL High 0.2-1.0 Alkaline Phosphatase 149 U/L High 34-104 Alt 75 U/L High 7-52 Ast 70 U/L High 13-39 Egfr Non- 64.7 >60 Egfr 83.1 >60 32 Laboratory test finding 12/29/2015 Hemoglobin A1c 5.3 5-7 Laboratory test finding 09/10/2015 Hemoglobin A1c 9.1 High 5-7 Laboratory test finding 05/26/2015 Hemoglobin A1c 9.1 High 5-7 Laboratory test finding 03/31/2015 Magnesium 1.6 mg/dL Low 1.9-2.7 Laboratory test finding 02/27/2015 Magnesium 1.5 mg/dL Low 1.9-2.7 33 PSA Screening 0.379 ng/mL 0-4.000 34 Urine Microalbumin Random 02/12/2015 Ur Microalbumin (mg/L) 527.0 mg/L Urine Creatinine 88.98 mg/dL Urine Microalbumin/Creatinine 592.2 ug/mg High <31 Comp Metabolic Panel 01/26/2015 Sodium 137 mmol/L 133-145 Potassium 4.1 mmol/L 3.5-5.0 Chloride 102 mmol/L 101-111 Co2 Carbon Dioxide 28 mmol/L 22-32 Anion Gap 7 mmol/L 2-11 Glucose 279 mg/dL High 70-100 Blood Urea Nitrogen 20 mg/dL 6-24 Creatinine 1.02 mg/dL 0.67-1.17 BUN/Creatinine Ratio 19.6 8-20 Calcium 9.1 mg/dL 8.6-10.3 Total Protein 6.6 g/dL 6.4-8.9 Albumin 4.1 g/dL 3.2-5.2 Globulin 2.5 g/dL 2-4 Albumin/Globulin Ratio 1.6 1-3 Total Bilirubin 0.70 mg/dL 0.2-1.0 Alkaline Phosphatase 52 U/L 34-104 Alt 15 U/L 7-52 Ast 21 U/L 13-39 Egfr Non- 74.5 >60 Egfr 95.8 >60 35 Lipid Profile (Trig/Chol/HDL) 01/26/2015 Triglycerides 64 mg/dL 36 Cholesterol 97 mg/dL 37 HDL Cholesterol 41.7 mg/dL 38 LDL Cholesterol 43 mg/dL 39 Laboratory test 01/26/2015 Hemoglobin A1c 11.7 % High Less than 40 finding (Glyco HGB) 6.0 Laboratory test 10/28/2014 Hemoglobin A1c 8.9 High 5-7 finding Laboratory test 06/05/2014 Hemoglobin A1c 7.5 High 5-7 finding Laboratory test 02/24/2014 Hemoglobin A1c 7.7 % High Less than 41, 42 finding 6.0 Urine Microalbumin 02/24/2014 Ur Microalbumin 191.0 mg/dL <30 41, 43 Random (mg/L) Urine Creatinine 164.49 mg/dL 41 Urine Microalbumin/Creatinine 116.1 High Less Than 31 41 Lipid Profile (Trig/Chol/HDL) 02/24/2014 Triglycerides 87 mg/dL 41, 44 Cholesterol 100 mg/dL 41, 45 HDL Cholesterol 40.2 mg/dL 41, 46 LDL Cholesterol 42 mg/dL 41, 47 Laboratory test finding 11/21/2013 Hemoglobin A1c 7.7 High 5-7 CBC Auto Diff 09/19/2013 White Blood Count 6.7 10^3/uL 4.8-10.8 Red Blood Count 5.20 10^6/uL 4.0-5.4 Hemoglobin 13.8 g/dL Low 14.0-18.0 Hematocrit 41 % Low 42-52 Mean Corpuscular Volume 80 fL 80-94 Mean Corpuscular Hemoglobin 27 pg 27-31 Mean Corpuscular HGB Conc 33 g/dL 31-36 Red Cell Distribution Width 14 % 10.5-15 Platelet Count 127 10^3/uL Low 150-450 Mean Platelet Volume 9 um3 7.4-10.4 Abs Neutrophils 4.6 10^3/uL 1.5-7.7 Abs Lymphocytes 1.3 10^3/uL 1.0-4.8 Abs Monocytes 0.7 10^3/uL 0-0.8 Abs Eosinophils 0 10^3/uL 0-0.6 Abs Basophils 0.1 10^3/uL 0-0.2 Abs Nucleated RBC 0 10^3/uL Granulocyte % 68.6 % 38-83 Lymphocyte % 19.5 % Low 25-47 Monocyte % 10.4 % High 1-9 Eosinophil % 0.3 % 0-6 Basophil % 1.2 % 0-2 Nucleated Red Blood Cells % 0.1 Comp Metabolic Panel 09/19/2013 Sodium 135 mmol/L 133-145 Potassium 3.8 mmol/L 3.5-5.0 Chloride 100 mmol/L Low 101-111 Co2 Carbon Dioxide 26.0 mmol/L 22-32 Anion Gap 9.0 mmol/L 2-11 Glucose 132 mg/dL High 70-100 Blood Urea Nitrogen 17 mg/dL 6-24 Creatinine 0.90 mg/dL 0.50-1.40 BUN/Creatinine Ratio 18.9 8-20 Calcium 9.3 mg/dL 8.1-9.9 Total Protein 7.5 g/dL 6.2-8.1 Albumin 4.3 g/dL 3.6-5.4 Globulin 3.2 g/dL 2-4 Albumin/Globulin Ratio 1.3 1-3 Total Bilirubin 0.8 mg/dL 0.4-1.5 Alkaline Phosphatase 51 U/L 30-110 Alt 20 U/L 14-54 Ast 28 U/L 12-42 Egfr Non- 86.7 >60 Egfr 111.5 >60 48 Laboratory test finding 09/19/2013 Troponin I 0.01 ng/mL 0-0.06 49 Laboratory test finding 05/28/2013 Hemoglobin A1c 6.6 5-7 Iron & Iron Binding Capacity 04/22/2013 Iron 79 g/dL 45-182 Unsaturated Iron Binding 345 g/dL Total Iron Binding Capacity 424 g/dL 250-450 % Iron Saturation 19 % 15-55 Laboratory test finding 04/22/2013 Ferritin 23 ng/mL Low 24-336 Vitamin B12 217 pg/mL 180-914 CBC With Manual Diff 04/22/2013 White Blood Count 5.5 10^3/uL 4.8-10.8 Red Blood Count 4.74 10^6/uL 4.0-5.4 Hemoglobin 12.6 g/dL Low 14.0-18.0 Hematocrit 39 % Low 42-52 Mean Corpuscular Volume 82 fL 80-94 Mean Corpuscular Hemoglobin 27 pg 27-31 Mean Corpuscular HGB Conc 33 g/dL 31-36 Red Cell Distribution Width 14 % 10.5-15 Platelet Count 133 10^3/uL Low 150-450 Mean Platelet Volume 9 um3 7.4-10.4 Abs Neutrophils 3.4 10^3/uL 1.5-7.7 Abs Lymphocytes 1.5 10^3/uL 1.0-4.8 Abs Monocytes 0.6 10^3/uL 0-0.8 Abs Eosinophils 0 10^3/uL 0-0.6 Abs Basophils 0 10^3/uL 0-0.2 Abs Nucleated RBC 0.01 10^3/uL Neutrophil % 60 % 38-83 Band % 2 % 0-8 Lymphocytes % 24 % Low 25-47 Monocytes % 9 % 0-13 Reactive Lymph % 5 % 0-6 RBC Morphology Normal Normal Laboratory test 04/22/2013 Methylmalonic Acid 0.22 nmol/mL <=0.40 50 finding Laboratory test 01/28/2013 Hemoglobin A1c 8.5 High 5-7 finding Laboratory test 01/22/2013 Lyme Disease Serology Negative Negative 51 finding Lipid Profile 01/22/2013 Triglycerides 65 mg/dL 40-200 (Trig/Chol/HDL) Cholesterol 108 mg/dL Less than 200 HDL Cholesterol 40 mg/dL 40-60 52 Cholesterol/HDL Ratio 2.7 Average 1-4.44 LDL Cholesterol 55.0 Less Than 100 53 Comp Metabolic Panel 01/22/2013 Sodium 139 mmol/L 133-145 Potassium 5.0 mmol/L 3.5-5.0 Chloride 102 mmol/L 101-111 Co2 Carbon Dioxide 31.0 mmol/L 22-32 Anion Gap 6.0 mmol/L 2-11 Glucose 190 mg/dL High 70-100 Blood Urea Nitrogen 24 mg/dL 6-24 Creatinine 1.10 mg/dL 0.50-1.40 BUN/Creatinine Ratio 21.8 High 8-20 Calcium 9.4 mg/dL 8.1-9.9 Total Protein 6.2 g/dL 6.2-8.1 Albumin 3.8 g/dL 3.6-5.4 Globulin 2.4 g/dL 2-4 Albumin/Globulin Ratio 1.6 1-3 Total Bilirubin 0.6 mg/dL 0.4-1.5 Alkaline Phosphatase 49 U/L 30-110 Alt 21 U/L 14-54 Ast 26 U/L 12-42 Egfr Non- 68.8 >60 Egfr 88.4 >60 54 Urine Microalbumin Random 01/22/2013 Ur Microalbumin (mg/L) 548.0 mg/L 55 Urine Creatinine 175.5 mg/dL Urine Microalbumin/Creatinine 312.3 High Less Than 31 Oncology CBC Auto Diff 01/15/2013 White Blood Count 6.7 10^3/uL 4.8-10.8 Red Blood Count 4.69 10^6/uL 4.0-5.4 Hemoglobin 12.6 g/dL Low 14.0-18.0 Hematocrit 38 % Low 42-52 Mean Corpuscular Volume 81 fL 80-94 Mean Corpuscular Hemoglobin 27 pg 27-31 Mean Corpuscular HGB Conc 33 g/dL 31-36 Red Cell Distribution Width 13 % 10.5-15 Platelet Count 151 10^3/uL 150-450 Mean Platelet Volume 8 um3 7.4-10.4 Abs Neutrophils 4.6 10^3/uL 1.5-7.7 Abs Lymphocytes 1.4 10^3/uL 1.0-4.8 Abs Monocytes 0.7 10^3/uL 0-0.8 Abs Eosinophils 0 10^3/uL 0-0.6 Abs Basophils 0 10^3/uL 0-0.2 Granulocyte % 68.0 % 38-83 Lymphocyte % 21.6 % Low 25-47 Monocyte % 10.0 % High 1-9 Eosinophil % 0.2 % 0-6 Basophil % 0.2 % 0-2 Laboratory test finding 10/24/2012 Hemoglobin A1c 7.0 5-7 Oncology CBC Auto Diff 09/11/2012 White Blood Count 5.6 10^3/uL 4.8-10.8 Red Blood Count 4.55 10^6/uL 4.0-5.4 Hemoglobin 12.8 g/dL Low 14.0-18.0 Hematocrit 38 % Low 42-52 Mean Corpuscular Volume 83 fL 80-94 Mean Corpuscular Hemoglobin 28 pg 27-31 Mean Corpuscular HGB Conc 34 g/dL 31-36 Red Cell Distribution Width 13 % 10.5-15 Platelet Count 121 10^3/uL Low 150-450 Mean Platelet Volume 9 um3 7.4-10.4 Abs Neutrophils 3.4 10^3/uL 1.5-7.7 Abs Lymphocytes 1.5 10^3/uL 1.0-4.8 Abs Monocytes 0.5 10^3/uL 0-0.8 Abs Eosinophils 0 10^3/uL 0-0.6 Abs Basophils 0.2 10^3/uL 0-0.2 Granulocyte % 58.4 % 38-83 Lymphocyte % 27.4 % 25-47 Monocyte % 9.8 % High 1-9 Eosinophil % 0.3 % 0-6 Basophil % 4.1 % High 0-2 Laboratory test finding 09/11/2012 Platelet Count, Citrated 133 cumm Low 150-450 Liver Function Panel 06/01/2012 Total Protein 5.8 GM/DL Low 6.2-8.1 Albumin 3.8 GM/DL 3.6-5.4 Globulin 2.0 GM/DL 2-4 Albumin/Globulin Ratio 1.9 1-3 Total Bilirubin 0.6 mg/dL 0.1-1.0 56 Direct Bilirubin 0.1 mg/dL 0.1-0.5 Indirect Bilirubin 0.5 mg/dL 0.3-1.0 Alkaline Phosphatase 52 U/L 30-110 Alt 23 U/L 14-54 Ast 30 U/L 12-42 Laboratory test finding 06/01/2012 LDH 185 U/L 95-185 Iron & Iron Binding Capacity 06/01/2012 Iron 82 UG/ML 45-182 Unsaturated Iron Binding 326 g/dL Total Iron Binding Capacity 408 g/dL 250-450 Transferrin 291.6 % Iron Saturation 20 % 15-55 Laboratory test finding 06/01/2012 Ferritin 46 NG/ML 24-336 Vitamin B12 340 pg/mL 180-914 Retic Count 06/01/2012 Retic Count 1.8 % High 0.5-1.5 Corrected Retic Count 1.5 % 0.5-1.5 Maturation Factor Retic 1.5 Retic Index 1.00 Mean Retic Volume 104.3 Immature Retic Fraction 0.41 RBC Retic Count 4.50 10^6/uL Low 4.6-6.2 Hematocrit for Retic CNT 38 % Low 42-52 Oncology CBC Manual Diff 06/01/2012 White Blood Count 5.9 10^3/uL 4.8- 10.8 Red Blood Count 4.51 10^6/uL 4.0-5.4 Hemoglobin 12.6 g/dL Low 14.0-18.0 Hematocrit 39 % Low 42-52 Mean Corpuscular Volume 85 fL 80-94 Mean Corpuscular Hemoglobin 28 pg 27-31 Mean Corpuscular HGB Conc 33 g/dL 31-36 Red Cell Distribution Width 13 % 10.5-15 Platelet Count 138 10^3/uL Low 150-450 Mean Platelet Volume 9 um3 7.4-10.4 Abs Neutrophils 3.4 10^3/uL 1.5-7.7 Abs Lymphocytes 1.7 10^3/uL 1.0-4.8 Abs Monocytes 0.6 10^3/uL 0-0.8 Abs Eosinophils 0.2 10^3/uL 0-0.6 Abs Basophils 0 10^3/uL 0-0.2 Abs Nucleated RBC 3.1 10^3/uL Neutrophil % 53.0 % 38-83 Band % 0 % 0-8 Lymphocytes % 37.0 % 25-47 Monocytes % 7.0 % 0-13 Eosinophils % 3.0 % 0-6 Basophil % 0 % 0-2 Reactive Lymph % 0 % 0-6 Metamyelocytes % 0 % 0-2 Myelocytes % 0 % 0-1 Promyelocytes % 0 % Blast % 0 % Elliptocyte 1+ Immunofixation (Electro) Serum 06/01/2012 Albumin (Pep) 3.28 GM/DL 3.0- 4.35 Alpha 1 Globulins 0.21 GM/DL 0.09-0.33 Alpha 2 Globulin 1.03 GM/DL 0.59-1.18 Beta Globulin 0.91 GM/DL 0.68-1.02 Gamma Globulin 0.77 GM/DL 0.76-1.60 Albumin % (Pep) 52.9 % 46-63 Alpha 1 Globulins % 3.4 % 1.2-5.3 Alpha 2 Globulin % 16.6 % 9-17 Beta Globulin % 14.7 % 10-16 Gamma Globulin % 12.4 % 12-22 Albumin/Globulin Ratio 1.1 0.9-2.0 Total Protein (Pep) 6.2 GM/DL 6.2-8.1 Spep Comments (SEE NOTE) 57 Serum Immunofixation (SEE NOTE) 58 Laboratory test finding 06/01/2012 Hepatitis B Surface Nonreactive Nonreactive 59 Antigen Hepatitis B [place] AB 06/01/2012 Hepatitis B Surface Nonreactive Nonreactive Titer AB Hep B Surf AB Index 0.13 60 Laboratory test finding 06/01/2012 Hepatitis B Core IgM Nonreactive Nonreactive 61 Hepatitis C Antibody Nonreactive Nonreactive 62 Laboratory test finding 05/07/2012 Hemoglobin A1c 7.2 High 5-7 Laboratory test finding 04/23/2012 Ferritin 54 NG/ML 24-336 Iron & Iron Binding Capacity 04/23/2012 Iron Total 82 g/dL 45-182 Unsaturated Iron Binding 326 g/dL Total Iron Binding Capacity 408 g/dL 250-450 % Iron Saturation 20 % 15-55 Vitamin B12 And Folate Serum 04/23/2012 Vitamin B12 313 pg/mL 180-914 Folic Acid 23.9 NG/ML See Below 63 CBC No Diff 03/30/2012 White Blood Count 6.8 CUMM 4.8-10.8 Red Cell Count 4.43 CUMM Low 4.6-6.2 Hemoglobin 12.8 g/dL Low 14.0-18.0 Hematocrit 37 % Low 42-52 Mean Corpuscular Volume 83 um3 80-94 Mean Corpuscular Hemoglob 29 pg 27-31 Mean Corpuscular HGB Cone 35 g/dL 32-36 Redcell Distribution WDTH 14 % 10.5-15 Platelet Count 123 CUMM Low 150-450 Mean Platelet Volume 9.2 um3 7.4-10.4 Basic Metabolic Panel 03/30/2012 Sodium 138 mmol/L 135-145 Potassium 4.2 mmol/L 3.5-5.0 Chloride 105 mmol/L 101-111 Co2 (Carbon Dioxide) 27.0 mmol/L 22-32 Anion Gap 6.0 mmol/L 2-11 64 Glucose 151 mg/dL High 70-100 BUN 21 mg/dL 6-24 Creatinine 1.0 mg/dL 0.50-1.40 One Over Creatinine 1.00 BUN/Creatinine Ratio 21.0 High 8-20 Calcium 9.1 mg/dL 8.1-9.9 eGFR Non- 77.0 > 60 eGFR 99.0 > 60 65 Protime 03/30/2012 Inr 0.87 Low 0.88-1.13 66 Protime 10.3 SEC 10.3-13.5 67 Laboratory test finding 03/30/2012 PTT (Aptt) 25.4 SEC 25.1-38.5 Basic Metabolic Panel 03/20/2012 Sodium 140 mmol/L 135-145 Potassium 4.7 mmol/L 3.5-5.0 Chloride 103 mmol/L 101-111 Co2 (Carbon Dioxide) 30.0 mmol/L 22-32 Anion Gap 7.0 mmol/L 2-11 68 Glucose 111 mg/dL High 70-100 BUN 23 mg/dL 6-24 Creatinine 1.1 mg/dL 0.50-1.40 One Over Creatinine 0.90 BUN/Creatinine Ratio 20.9 High 8-20 Calcium 8.7 mg/dL 8.1-9.9 eGFR Non- 69.0 > 60 eGFR 88.7 > 60 69 Laboratory test finding 03/20/2012 Ferritin 59 NG/ML 24-336 Vitamin B12 211 pg/mL 180-914 Folic Acid 15.3 NG/ML See Below 70 CBC With Manual Diff 03/20/2012 White Blood Count 5.7 CUMM 4.8-10.8 Red Cell Count 4.19 CUMM Low 4.6-6.2 Hemoglobin 12.1 g/dL Low 14.0-18.0 Hematocrit 35 % Low 42-52 Mean Corpuscular Volume 83 um3 80-94 Mean Corpuscular Hemoglob 29 pg 27-31 Mean Corpuscular HGB Cone 35 g/dL 32-36 Redcell Distribution WDTH 14 % 10.5-15 Platelet Count 125 CUMM Low 150-450 Mean Platelet Volume 9.5 um3 7.4-10.4 Absolute Neutrophil Count 2.8 1.5-7.7 Polysegmented Neutrophil 46 % 38-83 Lymphocyte 36 % 25-47 Monocyte 13 % 0-13 Eosinophil 4 % 0-6 Atypical Lymph 1 % 0-6 Anisocytosis SLIGHT Retic Count 03/20/2012 Reticulocyte Count 1.32 % 0.5-1.5 Corrected Retic 1.0 % 0.5-1.5 Retic Index 0.7 Mean Retic Volume 99.1 Immature Retic Fraction 0.38 RBC Retic Count 4.19 CUMM Low 4.6-6.2 Hematocrit For Retic Coun 35 % Low 42-52 Urine Microalbumin Random 03/01/2012 Microalbumin (MG/L) 247.0 mg/L Urine Creatinine 117.3 mg/dL Nazario Alb/Creatinine Ratio 210.6 UG/MG High Less Than 30 71 Laboratory test finding 03/01/2012 Hemoglobin A1c 7.5 High 5-7 Basic Metabolic Panel 02/03/2012 Sodium 136 mmol/L 135-145 Potassium 4.8 mmol/L 3.5-5.0 Chloride 101 mmol/L 101-111 Co2 (Carbon Dioxide) 29.0 mmol/L 22-32 Anion Gap 6.0 mmol/L 2-11 72 Glucose 307 mg/dL High 70-100 BUN 20 mg/dL 6-24 Creatinine 1.2 mg/dL 0.50-1.40 One Over Creatinine 0.83 BUN/Creatinine Ratio 16.7 8-20 Calcium 8.8 mg/dL 8.1-9.9 eGFR Non- 62.4 > 60 eGFR 80.3 > 60 73 Laboratory test finding 02/01/2012 Troponin-I 0 NG/ML 0-0.06 74 Comp Metabolic Panel 02/01/2012 Sodium 136 mmol/L 135-145 Potassium 4.3 mmol/L 3.5-5.0 Chloride 101 mmol/L 101-111 Co2 (Carbon Dioxide) 29.0 mmol/L 22-32 Anion Gap 6.0 mmol/L 2-11 75 Glucose 95 mg/dL 70-100 BUN 24 mg/dL 6-24 Creatinine 1.3 mg/dL 0.50-1.40 One Over Creatinine 0.76 BUN/Creatinine Ratio 18.5 8-20 Calcium 9.1 mg/dL 8.1-9.9 Total Protein 7.2 GM/DL 6.2-8.1 Albumin 4.0 GM/DL 3.6-5.4 Globulin 3.2 GM/DL 2-4 Albumin/Globulin Ratio 1.3 1-3 Bilirubin Total 0.7 mg/dL 0.4-1.5 76 Alkaline Phosphatase 48 U/L 39-117 Alt (SGPT) 22 U/L 17-63 Ast (Sgot) 29 U/L 12-42 eGFR Non- 56.9 > 60 eGFR 73.2 > 60 77 Protime 02/01/2012 Inr 0.87 Low 0.88-1.13 78 Protime 10.3 SEC 10.3-13.5 79 CBC Auto Diff 02/01/2012 White Blood Count 5.7 CUMM 4.8-10.8 Red Cell Count 4.64 CUMM 4.6-6.2 Hemoglobin 13.0 g/dL Low 14.0-18.0 Hematocrit 38 % Low 42-52 Mean Corpuscular Volume 81 um3 80-94 Mean Corpuscular Hemoglob 28 pg 27-31 Mean Corpuscular HGB Cone 35 g/dL 32-36 Redcell Distribution WDTH 14 % 10.5-15 Platelet Count 143 CUMM Low 150-450 Mean Platelet Volume 8.9 um3 7.4-10.4 Gran % 58.4 % 38-83 Lymph % 27.2 % 25-47 Mononuclear % 11.0 % High 1-9 Eosinophil % 2.9 % 0-6 Basophil % 0.5 % 0-2 Abs Lymphs 1.6 1.0-4.8 Abs Mononuclear 0.6 0-0.8 Absolute Neutrophil Count 3.4 1.5-7.7 Abs Eosinophils 0.2 0-0.6 Abs Basophils 0 0-0.2 Laboratory test finding 10/26/2011 Hemoglobin A1c 8.2 High 5-7 Lipid Profile (Trig/Chol/HDL) 10/10/2011 Triglyceride 63 mg/dL 40-200 Cholesterol 130 mg/dL Less Than 200 80 High Density Lipoprotein 52 mg/dL 40-60 81 Cholesterol/HDL Ratio 2.50 AVERAGE 1-4.97 Low Density Lipoprotein 65 mg/dL Less Than 100 82 Comp Metabolic Panel 10/10/2011 Sodium 141 mmol/L 135-145 Potassium 5.0 mmol/L 3.5-5.0 Chloride 104 mmol/L 101-111 Co2 (Carbon Dioxide) 30.0 mmol/L 22-32 Anion Gap 7.0 mmol/L 2-11 83 Glucose 172 mg/dL High 70-100 BUN 16 mg/dL 6-24 Creatinine 1.0 mg/dL 0.50-1.40 One Over Creatinine 1.00 BUN/Creatinine Ratio 16.0 8-20 Calcium 8.9 mg/dL 8.1-9.9 Total Protein 5.9 GM/DL Low 6.2-8.1 Albumin 3.7 GM/DL 3.6-5.4 Globulin 2.2 GM/DL 2-4 Albumin/Globulin Ratio 1.7 1-3 Bilirubin Total 0.5 mg/dL 0.4-1.5 84 Alkaline Phosphatase 55 U/L 39-117 Alt (SGPT) 18 U/L 17-63 Ast (Sgot) 22 U/L 12-42 eGFR Non- 77.3 > 60 eGFR 99.4 > 60 85 Laboratory test finding 04/20/2011 Hemoglobin A1c 7.2 High 5-7 Laboratory test finding 01/19/2011 Hemoglobin A1c 6.8 5-7 1 Because ethnic data is not always readily available, this report includes an eGFR for both -Americans and non- Americans. The National Kidney Disease Education Program (NKDEP) does not endorse the use of the MDRD equation for patients that are not between the ages of 18 and 70, are , have extremes of body size, muscle mass, or nutritional status, or are non- or non-. According to the National Kidney Foundation, irrespective of diagnosis, the stage of the disease is based on the level of kidney function: Stage Description GFR(mL/min/1.73 m(2)) 1 Kidney damage with normal or decreased GFR 90 2 Kidney damage with mild decrease in GFR 60-89 3 Moderate decrease in GFR 30-59 4 Severe decrease in GFR 15-29 5 Kidney failure <15 (or dialysis) 2 Desirable <150 Borderline high 150-199 High 200-499 Very High >500 3 Desirable <200 Borderline high 200-239 High >239 4 Low <40 Desirable: 40-60 High: >60 5 Desirable: <100 mg/dL Near Optimal: 100-129 mg/dL Borderline High: 130-159 mg/dL High: 160-189 mg/dL Very High: >189 mg/dL 6 FASTING 10 HOUR 7 Therapeutic target for the treatment of diabetes Mellitus patients is <7% HBA1C, and in selective patients <6.0%.Please refer to [place] [employer] Diabetic care guidelines for further information. 8 Rv Detailer: [id number] YISEL NÚÑEZ 9 Rv Detailer: [id number] YISEL NÚÑEZ 10 Rv Detailer: [id number] YISEL NÚÑEZ 11 Because ethnic data is not always readily available, this report includes an eGFR for both -Americans and non- Americans. The National Kidney Disease Education Program (NKDEP) does not endorse the use of the MDRD equation for patients that are not between the ages of 18 and 70, are , have extremes of body size, muscle mass, or nutritional status, or are non- or non-. According to the National Kidney Foundation, irrespective of diagnosis, the stage of the disease is based on the level of kidney function: Stage Description GFR(mL/min/1.73 m(2)) 1 Kidney damage with normal or decreased GFR 90 2 Kidney damage with mild decrease in GFR 60-89 3 Moderate decrease in GFR 30-59 4 Severe decrease in GFR 15-29 5 Kidney failure <15 (or dialysis) 12 Because ethnic data is not always readily available, this report includes an eGFR for both -Americans and non- Americans. The National Kidney Disease Education Program (NKDEP) does not endorse the use of the MDRD equation for patients that are not between the ages of 18 and 70, are , have extremes of body size, muscle mass, or nutritional status, or are non- or non-. According to the National Kidney Foundation, irrespective of diagnosis, the stage of the disease is based on the level of kidney function: Stage Description GFR(mL/min/1.73 m(2)) 1 Kidney damage with normal or decreased GFR 90 2 Kidney damage with mild decrease in GFR 60-89 3 Moderate decrease in GFR 30-59 4 Severe decrease in GFR 15-29 5 Kidney failure <15 (or dialysis) 13 Because ethnic data is not always readily available, this report includes an eGFR for both -Americans and non- Americans. The National Kidney Disease Education Program (NKDEP) does not endorse the use of the MDRD equation for patients that are not between the ages of 18 and 70, are , have extremes of body size, muscle mass, or nutritional status, or are non- or non-. According to the National Kidney Foundation, irrespective of diagnosis, the stage of the disease is based on the level of kidney function: Stage Description GFR(mL/min/1.73 m(2)) 1 Kidney damage with normal or decreased GFR 90 2 Kidney damage with mild decrease in GFR 60-89 3 Moderate decrease in GFR 30-59 4 Severe decrease in GFR 15-29 5 Kidney failure <15 (or dialysis) 14 Desirable <150 Borderline high 150-199 High 200-499 Very High >500 15 Desirable <200 Borderline high 200-239 High >239 16 Low <40 Desirable: 40-60 High: >60 17 Desirable: <100 mg/dL Near Optimal: 100-129 mg/dL Borderline High: 130-159 mg/dL High: 160-189 mg/dL Very High: >189 mg/dL 18 Because ethnic data is not always readily available, this report includes an eGFR for both -Americans and non- Americans. The National Kidney Disease Education Program (NKDEP) does not endorse the use of the MDRD equation for patients that are not between the ages of 18 and 70, are , have extremes of body size, muscle mass, or nutritional status, or are non- or non-. According to the National Kidney Foundation, irrespective of diagnosis, the stage of the disease is based on the level of kidney function: Stage Description GFR(mL/min/1.73 m(2)) 1 Kidney damage with normal or decreased GFR 90 2 Kidney damage with mild decrease in GFR 60-89 3 Moderate decrease in GFR 30-59 4 Severe decrease in GFR 15-29 5 Kidney failure <15 (or dialysis) 19 Normal Range 180 to 914 Indeterminate Range 145 to 180 Deficient Range <145 20 Because ethnic data is not always readily available, this report includes an eGFR for both -Americans and non- Americans. The National Kidney Disease Education Program (NKDEP) does not endorse the use of the MDRD equation for patients that are not between the ages of 18 and 70, are , have extremes of body size, muscle mass, or nutritional status, or are non- or non-. According to the National Kidney Foundation, irrespective of diagnosis, the stage of the disease is based on the level of kidney function: Stage Description GFR(mL/min/1.73 m(2)) 1 Kidney damage with normal or decreased GFR 90 2 Kidney damage with mild decrease in GFR 60-89 3 Moderate decrease in GFR 30-59 4 Severe decrease in GFR 15-29 5 Kidney failure <15 (or dialysis) 21 Reference Range and Interpretation: TnI (ng/mL) Interpretation Less Than 0.03 ng/mL Not supportive of diagnosis of [place] 0.03 - 0.50 ng/mL Indeterminate: suggest serial studies if clinically indicated. Greater than 0.5 ng/mL Consistent with diagnosis of [place] 22 Critical Result M.9 Called to [id number] at: 13:12:04 by:[id number] Read back by:[id number] 23 Therapeutic target for the treatment of diabetes Mellitus patients is <7% HBA1C, and in selective patients <6.0%.Please refer to [place] [employer] Diabetic care guidelines for further information. 24 Critical Result LACT:2.2 Called to [id number] at: 22:27:22 by:[id number] Read back by:[id number] [facility] Severe Sepsis and Septic Shock Management Bundle Measure requires all lactic acids initially measuring >2.0 mmol/L be repeated. 25 >100 to <200 pg/mL: likely compensated congestive heart failure (CHF) 200 to 400 pg/mL: likely moderate CHF >400 pg/mL: likely moderate to severe CHF 26 Because ethnic data is not always readily available, this report includes an eGFR for both -Americans and non- Americans. The National Kidney Disease Education Program (NKDEP) does not endorse the use of the MDRD equation for patients that are not between the ages of 18 and 70, are , have extremes of body size, muscle mass, or nutritional status, or are non- or non-. According to the National Kidney Foundation, irrespective of diagnosis, the stage of the disease is based on the level of kidney function: Stage Description GFR(mL/min/1.73 m(2)) 1 Kidney damage with normal or decreased GFR 90 2 Kidney damage with mild decrease in GFR 60-89 3 Moderate decrease in GFR 30-59 4 Severe decrease in GFR 15-29 5 Kidney failure <15 (or dialysis) 27 Acute inflammation: >10.00 28 Reference Range and Interpretation: TnI (ng/mL) Interpretation Less Than 0.03 ng/mL Not supportive of diagnosis of [place] 0.03 - 0.50 ng/mL Indeterminate: suggest serial studies if clinically indicated. Greater than 0.5 ng/mL Consistent with diagnosis of [place] 29 Rv Detailer: [id number] AMY SANCHEZ 30 [place] Severe Sepsis and Septic Shock Management Bundle Measure requires all lactic acids initially measuring >2.0 mmol/L be repeated. 31 Because ethnic data is not always readily available, this report includes an eGFR for both -Americans and non- Americans. The National Kidney Disease Education Program (NKDEP) does not endorse the use of the MDRD equation for patients that are not between the ages of 18 and 70, are , have extremes of body size, muscle mass, or nutritional status, or are non- or non-. According to the National Kidney Foundation, irrespective of diagnosis, the stage of the disease is based on the level of kidney function: Stage Description GFR(mL/min/1.73 m(2)) 1 Kidney damage with normal or decreased GFR 90 2 Kidney damage with mild decrease in GFR 60-89 3 Moderate decrease in GFR 30-59 4 Severe decrease in GFR 15-29 5 Kidney failure <15 (or dialysis) 32 Because ethnic data is not always readily available, this report includes an eGFR for both -Americans and non- Americans. The National Kidney Disease Education Program (NKDEP) does not endorse the use of the MDRD equation for patients that are not between the ages of 18 and 70, are , have extremes of body size, muscle mass, or nutritional status, or are non- or non-. According to the National Kidney Foundation, irrespective of diagnosis, the stage of the disease is based on the level of kidney function: Stage Description GFR(mL/min/1.73 m(2)) 1 Kidney damage with normal or decreased GFR 90 2 Kidney damage with mild decrease in GFR 60-89 3 Moderate decrease in GFR 30-59 4 Severe decrease in GFR 15-29 5 Kidney failure <15 (or dialysis) 33 [MG] affected by ICTERUS 34 Serum levels of PSA measured using the [employer] DXI Hybritech immunoassay should not be interpreted as absolute evidence of the presence or absence of disease. The PSA value should be used in conjunction with other pertinent clinical diagnostic procedures. A PSA value in the range of 0.1 to 0.6 ng/ml is indeterminate if being used as an indicator of recurrent or residual disease. The values obtained with different assay methods or kits cannot be used interchangeably. 35 Because ethnic data is not always readily available, this report includes an eGFR for both -Americans and non- Americans. The National Kidney Disease Education Program (NKDEP) does not endorse the use of the MDRD equation for patients that are not between the ages of 18 and 70, are , have extremes of body size, muscle mass, or nutritional status, or are non- or non-. According to the National Kidney Foundation, irrespective of diagnosis, the stage of the disease is based on the level of kidney function: Stage Description GFR(mL/min/1.73 m(2)) 1 Kidney damage with normal or decreased GFR 90 2 Kidney damage with mild decrease in GFR 60-89 3 Moderate decrease in GFR 30-59 4 Severe decrease in GFR 15-29 5 Kidney failure <15 (or dialysis) 36 Desirable <150 Borderline high 150-199 High 200-499 Very High >500 37 Desirable <200 Borderline high 200-239 High >239 38 Low <40 Desirable: 40-60 High: >60 39 Desirable: <100 mg/dL Near Optimal: 100-129 mg/dL Borderline High: 130-159 mg/dL High: 160-189 mg/dL Very High: >189 mg/dL 40 Therapeutic target for the treatment of diabetes Mellitus patients is <7% HBA1C, and in selective patients <6.0%.Please refer to [employer] Diabetic care guidelines for further information. 41 FASTING 12 HOUR 42 Therapeutic target for the treatment of diabetes Mellitus patients is <7% HBA1C, and in selective patients <6.0%.Please refer to [place] [employer] Diabetic care guidelines for further information. 43 Microalbuminuria in a random sample is defined as: Microalbumin/Creatinine ratio of 30-299 ug/mg. 44 Desirable <150 Borderline high 150-199 High 200-499 Very High >500 45 Desirable <200 Borderline high 200-239 High >239 46 Low <40 Desirable: 40-60 High: >60 47 Desirable <100 Near Optimal 100-129 Borderline high 130-159 High 160-189 Very High >189 48 Because ethnic data is not always readily available, this report includes an eGFR for both -Americans and non- Americans. The National Kidney Disease Education Program (NKDEP) does not endorse the use of the MDRD equation for patients that are not between the ages of 18 and 70, are , have extremes of body size, muscle mass, or nutritional status, or are non- or non-. According to the National Kidney Foundation, irrespective of diagnosis, the stage of the disease is based on the level of kidney function: Stage Description GFR(mL/min/1.73 m(2)) 1 Kidney damage with normal or decreased GFR 90 2 Kidney damage with mild decrease in GFR 60-89 3 Moderate decrease in GFR 30-59 4 Severe decrease in GFR 15-29 5 Kidney failure <15 (or dialysis) 49 Reference Range and Interpretation: TnI (ng/mL) Interpretation Less Than 0.06 ng/mL Not supportive of diagnosis of [place] 0.06 - 0.50 ng/mL Indeterminate: suggest serial studies if clinically indicated. Greater than 0.5 ng/mL Consistent with diagnosis of [place] 50 Test Performed by: [address] [id number] Finishing Range Operator: John Cash III, M.D. 51 Serologic response to B. burgdorferi infection is not detected, but cannot rule out early infection during which low or undetectable antibody levels to B. burgdorferi may be present. If clinically indicated, a new serum specimen should be submitted in 7-14 days. Test Performed by: [address] [id number] Finishing Range Operator: John Cash III, M.D. 52 HDL Interpretation: Undesirable: High Risk: Less than 40 mg/dL Desirable: Low Risk: Greater than 60 mg/dL 53 LDL Interpretation: Low Risk Optimal Level: LDL Less than 100 mg/dL Near or Above Optimal: LDL 100-129 mg/dL Borderline High Risk: LDL 130-159 mg/dL High Risk: LDL 160-189 mg/dL Very High Risk: LDL Greater than 189 mg/dL 54 Because ethnic data is not always readily available, this report includes an eGFR for both -Americans and non- Americans. The National Kidney Disease Education Program (NKDEP) does not endorse the use of the MDRD equation for patients that are not between the ages of 18 and 70, are , have extremes of body size, muscle mass, or nutritional status, or are non- or non-. According to the National Kidney Foundation, irrespective of diagnosis, the stage of the disease is based on the level of kidney function: Stage Description GFR(mL/min/1.73 m(2)) 1 Kidney damage with normal or decreased GFR 90 2 Kidney damage with mild decrease in GFR 60-89 3 Moderate decrease in GFR 30-59 4 Severe decrease in GFR 15-29 5 Kidney failure <15 (or dialysis) 55 Microalbuminuria in a random sample is defined as: Microalbumin/Creatinine ratio of 30-299 ug/mg. 56 A metabolite of Naproxen, O-desmethylnaproxen, has been shown to interfere with the Jendrassik-Amol method for measuring total bilirubin. Samples from patients who have taken Naproxen have shown spurious elevation in total bilirubin levels. 57 Normal serum electrophoretic pattern. 58 Normal serum immunofixation electrophoretic pattern. No monoclonal protein detected. 59 @Sample frozen by [id number] at 2041 on 06/01/12. 60 The World Health Organization (WHO) Hepatitis B Immunoglobulin 1st International Reference Preparation (1976): The accepted criteria for immunity to HBV is anti-HBs activity greater than or equal to 10 mIU/mL. An Index Value of 1.00 is equivalent to 10 mIU/mL. Samples with an Index Value of 1.00 or greater are considered reactive (protective) in accordance with the CDC guidelines. 61 @Sample frozen by [id number] at 2041 on 06/01/12. 62 @Sample frozen by [id number] at 2041 on 06/01/12. 63 Please note: New reference range, effective 08/04/11 NORMAL REFERENCE RANGE: GREATER THAN 4.1 NG/ML 64 Anion gap measurement may be of limited value in the presence of any alkalosis, especially in a combined acid base disorder. . 65 Because ethnic data is not always readily available, this report includes an eGFR for both -Americans and non- Americans. The National Kidney Disease Education Program (NKDEP) does not endorse the use of the MDRD equation for patients that are not between the ages of 18 and 70, are , have extremes of body size, muscle mass, or nutritional status, or are non- or non-. According to the National Kidney Foundation, irrespective of diagnosis, the stage of the disease is based on the level of kidney function: Stage Description GFR(mL/min/1.73 m(2)) 1 Kidney damage with normal or decreased GFR 90 2 Kidney damage with mild decrease in GFR 60-89 3 Moderate decrease in GFR 30-59 4 Severe decrease in GFR 15-29 5 Kidney failure <15 (or dialysis) 66 Recommended INR for Patients on Oral Anticoagulants Prophylaxis 2.0 - 3.0 Treatment of thrombosis 2.0 - 3.0 Prevention of embolism 2.0 - 3.0 Prevention of embolism from prosthetic heart valves 2.5 - 3.5 67 DIAGNOSIS,TREATMENT,AND THERAPY MUST BE BASED ON THE INR VALUE ALONE. 68 Anion gap measurement may be of limited value in the presence of any alkalosis, especially in a combined acid base disorder. . 69 Because ethnic data is not always readily available, this report includes an eGFR for both -Americans and non- Americans. The National Kidney Disease Education Program (NKDEP) does not endorse the use of the MDRD equation for patients that are not between the ages of 18 and 70, are , have extremes of body size, muscle mass, or nutritional status, or are non- or non-. According to the National Kidney Foundation, irrespective of diagnosis, the stage of the disease is based on the level of kidney function: Stage Description GFR(mL/min/1.73 m(2)) 1 Kidney damage with normal or decreased GFR 90 2 Kidney damage with mild decrease in GFR 60-89 3 Moderate decrease in GFR 30-59 4 Severe decrease in GFR 15-29 5 Kidney failure <15 (or dialysis) 70 Please note: New reference range, effective 08/04/11 NORMAL REFERENCE RANGE: GREATER THAN 4.1 NG/ML 71 MICROALBUMINURIA IN A RANDOM SAMPLE IS DEFINED : MICROALBUMIN/CREATININE RATIO OF 30-299 ug/mg. . 72 Anion gap measurement may be of limited value in the presence of any alkalosis, especially in a combined acid base disorder. . 73 Because ethnic data is not always readily available, this report includes an eGFR for both -Americans and non- Americans. The National Kidney Disease Education Program (NKDEP) does not endorse the use of the MDRD equation for patients that are not between the ages of 18 and 70, are , have extremes of body size, muscle mass, or nutritional status, or are non- or non-. According to the National Kidney Foundation, irrespective of diagnosis, the stage of the disease is based on the level of kidney function: Stage Description GFR(mL/min/1.73 m(2)) 1 Kidney damage with normal or decreased GFR 90 2 Kidney damage with mild decrease in GFR 60-89 3 Moderate decrease in GFR 30-59 4 Severe decrease in GFR 15-29 5 Kidney failure <15 (or dialysis) 74 New Reference Range and Interpretation effective 05/17/2002 TnI (ng/ml) INTERPRETATION Less Than 0.06 ng/mL NOT SUPPORTIVE OF DIAGNOSIS OF [place] 0.06 - 0.50 ng/ml INDETERMINATE: SUGGEST SERIAL STUDIES IF CLINICALLY INDICATED. Greater than 0.5 ng/mL CONSISTENT WITH DIAGNOSIS OF [place] . 75 Anion gap measurement may be of limited value in the presence of any alkalosis, especially in a combined acid base disorder. . 76 A metabolite of Naproxen, O-desmethylnaproxen, has been shown to interfere with the Jendrassik-Amol method for measuring total bilirubin. Samples from patients who have taken Naproxen have shown spurious elevation in total bilirubin levels. 77 Because ethnic data is not always readily available, this report includes an eGFR for both -Americans and non- Americans. The National Kidney Disease Education Program (NKDEP) does not endorse the use of the MDRD equation for patients that are not between the ages of 18 and 70, are , have extremes of body size, muscle mass, or nutritional status, or are non- or non-. According to the National Kidney Foundation, irrespective of diagnosis, the stage of the disease is based on the level of kidney function: Stage Description GFR(mL/min/1.73 m(2)) 1 Kidney damage with normal or decreased GFR 90 2 Kidney damage with mild decrease in GFR 60-89 3 Moderate decrease in GFR 30-59 4 Severe decrease in GFR 15-29 5 Kidney failure <15 (or dialysis) 78 Recommended INR for Patients on Oral Anticoagulants Prophylaxis 2.0 - 3.0 Treatment of thrombosis 2.0 - 3.0 Prevention of embolism 2.0 - 3.0 Prevention of embolism from prosthetic heart valves 2.5 - 3.5 79 DIAGNOSIS,TREATMENT,AND THERAPY MUST BE BASED ON THE INR VALUE ALONE. 80 CHOLESTEROL INTERPRETATION: Desirable: Less than 200 MG/DL Borderline-High Risk: 200-239 MG/DL High-Risk: 240 MG/DL and over 81 HDL INTERPRETATION: Undesirable: High Risk: Less than 40 MG/DL Desirable: Low Risk: Greater than 60 MG/DL 82 LDL INTERPRETATION: Low Risk Optimal Level: LDL Less than 100 MG/DL Near or Above Optimal: LDL 100-129 MG/DL Borderline High Risk: LDL 130-159 MG/DL High Risk: LDL 160-189 MG/DL Very High Risk: LDL Greater than 189 MG/DL 83 Anion gap measurement may be of limited value in the presence of any alkalosis, especially in a combined acid base disorder. . 84 A metabolite of Naproxen, O-desmethylnaproxen, has been shown to interfere with the Jendrassik-Mastic method for measuring total bilirubin. Samples from patients who have taken Naproxen have shown spurious elevation in total bilirubin levels. 85 Because ethnic data is not always readily available, this report includes an eGFR for both -Americans and non- Americans. The National Kidney Disease Education Program (NKDEP) does not endorse the use of the MDRD equation for patients that are not between the ages of 18 and 70, are , have extremes of body size, muscle mass, or nutritional status, or are non- or non-. According to the National Kidney Foundation, irrespective of diagnosis, the stage of the disease is based on the level of kidney function: Stage Description GFR(mL/min/1.73 m(2)) 1 Kidney damage with normal or decreased GFR 90 2 Kidney damage with mild decrease in GFR 60-89 3 Moderate decrease in GFR 30-59 4 Severe decrease in GFR 15-29 5 Kidney failure <15 (or dialysis) Procedures Date CPT Code Description Status Comment 11/04/2016 32672 ECHO Transthoracic, Real-Time Completed 2D With Doppler And Color Flow 10/31/2016 32570 Stress Test Completed 10/31/2016 16256 Myocardial Perfusion Imaging Completed Tomographic (Spect) Multiple Studies 10/21/2016 78436 EKG Tracing & Completed Interpretation 12/11/2015 Diabetic Retinal Eye Exam Completed 08/28/2015 Diabetic Retinal Eye Exam Completed 07/23/2015 Diabetic Retinal Eye Exam Completed 09/14/2014 Colonoscopy Completed intestinal undigested food ? abcess, amato'e esophagus 06/09/2014 88450 Spirometry Incl Graphic Record Completed 05/16/2014 Diabetic Retinal Eye Exam Completed 05/15/2014 Diabetic Retinal Eye Exam Completed Document: 05/15/14 - Consult Ophthalmology/[place] 11/18/2013 Diabetic Retinal Eye Exam Completed 11/08/2013 28617 EKG Tracing & Completed Interpretation 11/04/2013 33360 ECHO Transthoracic, Real-Time Completed 2D With Doppler And Color Flow 03/30/2012 44197 Arthroscopy,Knee,Meniscectomy Completed Media & Lateral 03/30/2012 58936 Arthroscopy,Knee,Meniscectomy Completed Media & Lateral 03/16/2012 33576 EKG Tracing & Completed Interpretation 08/14/2007 Colonoscopy Completed Document: 01/19/11 - History Encounters Type Date Location Provider CPT E/M Dx Office Visit 06/22/2017 9:40a [facility] Kvng Yanez, 14827 E11.65 Medicine - [place] Alhaji Ruiz,FACP I10 C25.3 Z23 Office Visit 02/27/2017 8:50a [facility] Medicine Kvng Yanez, 17938 C25.3 - [place] Alhaji Ruiz,FACP E11.65 I10 E83.42 Office Visit 11/28/2016 10:30a [facility] Kvng Yanez, 67390 E11.65 Medicine - [place] Alhaji Ruiz,FACP I10 C25.3 Office Visit 11/07/2016 10:00a [facility] Tyree Goodrich, 71966 I25.10 [facility] Sara, [facility], FASNC Office Visit 10/21/2016 1:30p [facility] Tyree Goodrich, 55985 I25.10 [facility] Madi [place] Sara, [facility], FASNC R94.31 Office Visit 08/29/2016 2:40p [facility] Kvng Yanez, 25944 E11.649 Medicine - [place] Alhaji Ruiz,FACP I10 Office Visit 07/01/2016 9:00a [facility] Medicine Kvng Yanez, 87167 C25.3 - [place] Alhaji Ruiz,FACP I10 E87.6 E13.9 Office Visit 05/20/2016 9:00a [facility] Kvng Yanez, 49263 E11.649 Medicine - [place] Alhaji Ruiz,FACP E87.6 I10 C25.3 Z23 Office Visit 05/09/2016 8:20a [facility] [place] [address] E87.6 E83.42 I10 Z79.4 Office Visit 05/04/2016 2:46p [facility] Refugio Snow, 91316 E16.2 Assoc,pc [place] Hospitalists E87.8 E13.9 Office Visit 05/03/2016 2:46p [facility] Dinorah Goodwin, 26087 E16.2 Assoc,pc [employer] Hospitalists E87.8 E13.9 Office Visit 04/15/2016 1:00p [facility] Josse Gomez M.D. 19755 E78.2 Medicine - [address] C25.3 E11.42 K21.9 Office Visit 01/14/2016 8:00a [facility] Medicine - Christa Lr M.D. 47951 R17 [place] K86.8 Office Visit 01/05/2016 1:40p [facility] Medicine - Christa Lr M.D. 42665 R17 [place] E11.8 Office Visit 01/01/2016 12:43p [facility], Charo Arnett M.D. 39556 R17 Hospitalists I25.10 E11.8 I10 Office Visit 12/31/2015 12:42p [facility], Charo Arnett M.D. 35555 R17 Hospitalists I25.10 E11.8 I10 Office Visit 12/30/2015 12:41p [facility], Charo Arnett M.D. 86742 R17 Hospitalists I25.10 E11.8 I10 Office Visit 12/29/2015 12:40p [facility], Hermelindo Weller, 55791 R17 Hospitalists N.P. I25.10 E11.8 I10 Office Visit 12/29/2015 10:40a [facility] Medicine Christa Lr M.D. 31403 E11.65 - [place] K52.9 Office Visit 09/10/2015 10:40a [facility] Medicine Christa Lr M.D. 88345 E11.65 - [place] I73.9 J30.9 Office Visit 08/27/2015 10:00a [facility] Medicine Christa Lr M.D. 17600 E11.65 - [place] N29 J20.9 H91.93 Office Visit 05/26/2015 10:40a [facility] Medicine Christa Lr M.D. 06376 E11.65 - [place] Z23 Office Visit 04/07/2015 10:40a [facility] Medicine Christa Lr M.D. 25476 250.02 - [place] Office Visit 03/06/2015 10:40a [facility] Medicine Christa Lr M.D. 85092 250.02 - [place] 729.82 593.9 Office Visit 02/12/2015 9:00a [facility] Medicine Christa Lr M.D. 58770 V70.0 - [place] 272.2 250.00 536.3 729.82 V76.44 250.02 Office Visit 10/28/2014 1:40p [facility] Medicine Christa Lr M.D. 75661 250.00 - [place] 536.3 272.2 V05.3 V03.82 V58.67 Office Visit 07/01/2014 12:40p [facility] Medicine Christa Lr M.D. 25101 250.00 - [place] 493.90 536.3 780.52 Office Visit 06/05/2014 1:00p [facility] Medicine Christa Lr M.D. 51917 272.2 - [place] 250.00 536.3 493.90 v04.81 Office Visit 02/28/2014 9:40a [facility] Medicine Christa Lr M.D. 43586 250.00 - [place] 272.4 V76.44 Office Visit 11/21/2013 8:40a [facility] Medicine Christa Lr M.D. 37040 250.00 - [place] v05.3 917.0 Office Visit 10/29/2013 1:40p [facility] Medicine Christa Lr M.D. 63531 917.0 - [place] 807.00 401.9 250.00 Office Visit 10/22/2013 11:00a [facility] Medicine Christa Lr M.D. 30884 250.02 - [place] 401.9 917.0 v05.3 Office Visit 10/03/2013 11:20a [facility] Medicine Christa Lr M.D. 48786 401.9 - [place] 807.00 300.09 Office Visit 09/17/2013 1:30p [facility] Medicine Gina Razo M.D. 38310 401.9 - [place] 308.3 Office Visit 07/04/2013 11:50a [facility] Medicine Gina Razo 14290 008.69 - Lennie Ruiz v04.81 Office Visit 05/28/2013 1:20p [facility] Josse Gomez 36819 250.02 Medicine - Lennie Ruiz 401.9 272.4 278.00 Office Visit 01/28/2013 9:40a [facility] Josse Gomez 26250 250.02 Medicine - Lennie Ruiz V76.44 401.9 278.00 272.4 V70.0 Office Visit 12/05/2012 11:40a [facility] Medicine Josse Gomez, 21428 682.9 - [place] MVenita 250.02 Office Visit 10/24/2012 9:20a [facility] Josse Gomez, 58180 250.02 Medicine - [place] Sara V76.44 401.9 272.4 278.00 Office Visit 10/12/2012 10:00a [facility] Tyreejorge luis Goodrich, 65247 414.9 Vicenta Ruiz, [facility] Office Visit 05/07/2012 9:40a [facility] Medicine - Josse Gomez, 19662 250.02 [place] Darryl.Tala 401.9 272.4 278.00 287.5 530.81 Office Visit 04/23/2012 9:40a [facility] Josse Gomez, 35721 V04.81 Medicine - Lennie Ruiz 285.8 287.5 v04.81 250.02 Office Visit 03/22/2012 9:15a [facility] Thompson, 13656 719.46 CLuis Ruiz Office Visit 03/16/2012 1:15p [facility] Medicine Nathalie Gooden, 55294 717.3 - [place] N.P. 401.1 272.2 V72.84 250.02 V72.84 Office Visit 03/01/2012 8:30a [facility] Medicine Nathalie Gooden, N.P. 64797 250.02 - [place] 401.9 272.4 278.00 Office Visit 12/21/2011 2:00p [facility] Josse Gomez, 83865 250.02 Medicine - [place] Sara Office Visit 11/09/2011 2:00p [facility] Josse Gomez, 82229 250.00 Medicine - [place] Sara Office Visit 10/26/2011 2:00p [facility] Josse Gomez, 71860 250.00 Medicine - [place] Sara 401.9 272.4 530.85 278.00 Office Visit 10/11/2011 10:00a [facility] Thompson M.D. 15590 836.0 C.M.A. Office Visit 10/05/2011 9:40a [facility] 00693 717.3 - Lennie Ruiz Office Visit 08/25/2011 11:30a [facility] Thompson M.D. 81268 836.0 C.M.A. Office Visit 08/16/2011 1:00p [facility] [address]26 717.3 - Lennie Ruiz 722.91 719.41 Office Visit 07/12/2011 11:00a DO Not Use [facility], 40188 V04.81 Rimma Ruiz 722.91 719.06 719.41 v04.81 Office Visit 06/28/2011 2:40p DO Not Use [facility], 46812 807.00 [place] M.DJagruti 457.1 Office Visit 06/21/2011 3:00p DO Not Use [facility], 50208 807.00 [place] M.DJagruti 457.1 719.06 Office Visit 06/07/2011 1:00p DO Not Use [facility], 19053 719.06 Rimma M.DJagruti 466.0 Office Visit 04/20/2011 8:20a DO Not Use [facility] Josse Gomez M.D. 62082 401.9 [place] 250.00 272.4 780.52 278.00 530.81 V70.0 Office Visit 01/19/2011 10:40a DO Not Use [facility] [place] M.D. 08551 401.9 [place] 250.00 272.4 278.00 530.81 722.93 780.52 Plan of Care Future Appointment(s):09/22/2017 11:30 am - Kvng Yanez M.D.,FACP at [facility] Medicine - [address]08/28/2017 - Ashely Narvaez, NPS43.422A Sprain of left rotator cuff capsule, initial encounterNew Medication:Diclofenac Sodium 75 mgNorco 5-325 mgNew Therapy:Physical TherapyComments:Place ice on the left shoulder and neck for 15 minutes 3-4 times /dayNo heavy lifting - take it easy. I have ordered Physical Therapy to help with your neck and shoulder pain I have sent prescription in for Diclofenac an antiinflammatory for your pain, take this twice a day routinely for at least 7 days and you can use [place] narcotic pain med 1-3 times a day.M54.2 CervicalgiaNew Therapy:Physical TherapyComments: See above notes
[2017-08-30] MEDS ORDERED: Ketorolac INJ* 60 MG/2 ML VIAL IM ONE (10:32)
[2017-08-30] MEDS ORDERED: LORazepam INJ* 2 MG/ML 1 ML VIAL IM ONE (10:32)
[2017-08-30] MEDS ORDERED: Morphine INJ* 4 MG/ML 1 ML CARPUJECT IM ONE (11:32)
[2017-08-30] MEDS ORDERED: Morphine INJ* 10 MG/ML 1 ML CARPUJECT ONE (11:34)
--- NOTE | 2017-08-30 12:41 | RAD ---
HISTORY: Left shoulder pain, pancreatic cancer COMPARISONS: None TECHNIQUE: Multiple contiguous axial CT scans were obtained of the cervical spine without intravenous contrast, with coronal and sagittal multiplanar reformations. FINDINGS: BRAIN: The visualized brain is unremarkable CENTRAL CANAL: Evaluation of the central canal is limited on CT technique; however, there is no obvious canalicular mass or epidural hemorrhage. ALIGNMENT: There is a mild scoliotic curvature of the spine. VERTEBRAL BODIES: There is multilevel anterolateral marginal osteophyte formation. JOINTS: There is mild diffuse uncovertebral and facet osteoarthritis. MUSCULATURE: Unremarkable INTERVERTEBRAL DISCS: There is diffuse loss of intervertebral disc height. AXIAL IMAGES: C2-C3: There is bilateral facet osteoarthritis. There is no osseous neural foraminal narrowing or central canal stenosis. C3-C4: There is a mild broad-based disc osteophyte complex. There is no osseous neural foraminal narrowing or central canal stenosis. C4-C5: There is no osseous neural foraminal narrowing or central canal stenosis. C5-C6: There is a mild disc bulge. There is bilateral uncovertebral and facet hypertrophy. There is moderate left neural foraminal narrowing. There is no osseous central canal stenosis. C6-C7: There is a mild broad-based disc bulge. There is bilateral facet hypertrophy. There is no osseous neural foraminal narrowing or central canal stenosis. C7-T1: There is no osseous neural foraminal narrowing or central canal stenosis. SOFT TISSUES: The visualized soft tissues of the neck are unremarkable. The prevertebral fat stripe is preserved. OTHER: None. IMPRESSION: 1. DEGENERATIVE DISC DISEASE AND OSTEOARTHRITIS. 2. THERE IS LEFT-SIDED NEURAL FORAMINAL NARROWING AT C5-C6. THERE IS NO OSSEOUS CENTRAL CANAL STENOSIS.
--- NOTE | 2017-08-30 12:44 | RAD ---
HISTORY: Left shoulder pain, pancreatic cancer COMPARISONS: PET CT dated October 18, 2016, CTA chest dated October 05, 2016 TECHNIQUE: Multiple contiguous axial CT scans were obtained of the thoracic spine without intravenous contrast, with coronal and sagittal multiplanar reformations. FINDINGS: SPINAL CANAL: Evaluation of the central canal is limited on CT technique; however, there is no obvious canalicular mass or epidural hemorrhage. ALIGNMENT: The alignment is normal. VERTEBRAL BODIES: The vertebral bodies are preserved in height. The bones are normal in attenuation. There is multilevel anterolateral marginal osteophyte formation. JOINTS: There is osteoarthritis of the costovertebral joints and to lesser extent of the facet joints. MUSCULATURE: Normal INTERVERTEBRAL DISCS: There is diffuse loss of intervertebral disc height throughout the spine. AXIAL IMAGES: There is no osseous central canal stenosis or neuroforaminal narrowing. SOFT TISSUES: A biliary stent is noted OTHER: None IMPRESSION: DEGENERATIVE DISC DISEASE AND OSTEOARTHRITIS. THERE IS NO OSSEOUS NEURAL FORAMINAL NARROWING OR CENTRAL CANAL STENOSIS.
[2017-08-30 13:00] VITALS: BP 159/93
--- NOTE | 2017-08-30 16:05 | ED ---
Arthur Matos Thomas, scribed for Antonino Perez MD on 08/30/17 at 1026 . Upper Extremity Pain - HPI Summary HPI Summary: The patient is a 61 year old male presenting to the ED complaining of left shoulder pain that began one week ago. The pain radiates down his left arm. The pain is rated 10/10. The pain is described as sharp. The pain is aggravated by movement of his left arm. The patient has treated the pain with Webster two days ago, prescribed by his PMD. The pain is not relieved by this medication. The patient denies injury to the arm. Patient denies extremity weakness. The patient has a history of pancreatic cancer. - History of Current Complaint Chief Complaint: EDExtremityUpper Stated Complaint: LT SHOULDER & BACK PAIN Time Seen by Provider: 08/30/17 09:12 Hx Obtained From: Patient Onset/Duration: Started Weeks Ago - 1, Still Present Timing: Constant Severity Currently: Severe Pain Location: Shoulder - left Character: Sharp Aggravating Factor(s): Movement Alleviating Factor(s): Nothing Associated Signs & Symptoms: Negative: Other - extremity weakness - Allergies/Home Medications Allergies/Adverse Reactions: Allergies Allergy/AdvReac Type Severity Reaction Status Date / Time Celecoxib [From Celebrex] AdvReac Unknown Verified 08/30/17 09:13 Reaction Details Pregabalin [From Lyrica] AdvReac Unknown Verified 08/30/17 09:13 Reaction Details Quinine AdvReac Unknown Verified 08/30/17 09:13 Reaction Details PMH/Surg Hx/FS Hx/Imm Hx Previously Healthy: No Endocrine/Hematology History: Reports: Hx Diabetes Cardiovascular History: Reports: Hx Congestive Heart Failure, Hx Coronary Artery Disease, Hx Hypercholesterolemia, Hx Hypertension Respiratory History: Reports: Hx Asthma GI History: Reports: Hx Gastroesophageal Reflux Disease, Hx Jaundice - 1960s History: Reports: Hx Kidney Stones, Other Problems/Disorders - kidney doc says kidney fine but pees brown Denies: Hx Renal Disease Musculoskeletal History: Reports: Hx Back Problems - low back pain Sensory History: Reports: Hx Contacts or Glasses - reading glasses at home Opthamlomology History: Reports: Hx Contacts or Glasses - reading glasses at home Psychiatric History: Reports: Other Psychiatric Issues/Disorders - claustrophobic - Cancer History Cancer Type, Location and Year: Pancreatic, Diagnosed in December 2015 Hx Chemotherapy: Yes - Surgical History Surgery Procedure, Year, and Place: back surgery; Right Knee Surgery March 30, 2012, cardiac cath with stents Hx Anesthesia Reactions: No Infectious Disease History: No Infectious Disease History: Denies: Traveled Outside the [place] in Last 30 Days - Family History Known Family History: Positive: Cardiac Disease - Father - [place], Diabetes - Mother - [place] - Social History Alcohol Use: None Hx Substance Use: No Substance Use Type: Reports: Marijuana, Prescribed Substance Use Comment - Amount & Last Used: oxycontin and nucynta Hx Tobacco Use: Yes Smoking Status (MU): Former Smoker Type: Cigarettes Amount Used/How Often: 1 can a week Have You Smoked in the Last Year: No Review of Systems Negative: Fever Positive: Other - Left shoulder pain Negative: Weakness - extremity All Other Systems Reviewed And Are Negative: Yes Physical Exam - Summary Physical Exam Summary: Appearance: The patient is well-nourished in no acute distress and in no acute pain. Skin: The skin is warm and dry and skin color reflects adequate perfusion. HEENT: The head is normocephalic and atraumatic. The pupils are equal and reactive. The conjunctivae are clear and without drainage. Nares are patent and without drainage. Mouth reveals moist mucous membranes and the throat is without erythema and exudate. The external ears are intact. The ear canals are patent and without drainage. The tympanic membranes are intact. Neck: the neck is supple with full range of motion and non-tender. There are no carotid bruits. There is no neck vein distension. Respiratory: Chest is non-tender. Lungs are clear to auscultation and breath sounds are symmetrical and equal. Cardiovascular: Heart is regular rate and rhythm. There is no murmur or rub auscultated. There is no peripheral edema and pulses are symmetrical and equal. Abdomen: The abdomen is soft and non-tender. There are normal bowel sounds heard in all four quadrants and there is no organomegaly palpated. Musculoskeletal: Extremities are non-tender with full range of motion. There is good capillary refill. There is no peripheral edema or calf tenderness elicited. Back: In the rhomboid area on the left, he has a spasm. He has tenderness to any active range of motion of the left arm. Neurological: Patient is alert and oriented to person, place and time. The patient has symmetrical motor strength in all four extremities. Cranial nerves are grossly intact. Deep tendon reflexes are symmetrical and equal in all four extremities. Psychiatric: The patient has an appropriate affect and does not exhibit any anxiety or depression. Triage Information Reviewed: Yes Vital Signs On Initial Exam: Initial Vitals Temp Pulse Resp BP Pulse Ox 98.2 F 73 20 164/109 99 08/30/17 08:54 08/30/17 08:54 08/30/17 08:54 08/30/17 08:54 08/30/17 08:54 Vital Signs Reviewed: Yes Diagnostics - Vital Signs Vital Signs Temp Pulse Resp BP Pulse Ox 08/30/17 09:16 71 98 08/30/17 08:54 98.2 F 73 20 164/109 99 - Laboratory Lab Statement: Any lab studies that have been ordered have been reviewed, and results considered in the medical decision making process. - CT CT C-Spine CT Interpretation: No Acute Changes - 1. DEGENERATIVE DISC DISEASE AND OSTEOARTHRITIS. 2. THERE IS LEFT-SIDED NEURAL FORAMINAL NARROWING AT C5-C6. THERE IS NO OSSEOUS CENTRAL CANAL STENOSIS. Dr. Perez has reviewed this report. CT Interpretation Completed By: Radiologist CT T-Spine CT Interpretation: No Acute Changes - DEGENERATIVE DISC DISEASE AND OSTEOARTHRITIS. THERE IS NO OSSEOUS NEURAL FORAMINAL NARROWING OR CENTRAL CANAL STENOSIS. Dr. Perez has reviewed this report. CT Interpretation Completed By: Radiologist Course/Dx - Course Course Of Treatment: Mr. Weaver presented with a week of left arm and shoulder pain, worse with any movement of his left arm. He can't find a confortable position. He saw his MD who prescribed norco and prednisone. He threw the prednisone away because he read about the side effects. His exam was consistent with a musculoskeletal/radicular pain. Because of his history of cancer, I was concerned about a possible pathological fracture or met causing the symptoms and obtained a CT which showed foraminal narrowing on the left at C5-6. He improved some with pain meds and muscle relaxants here. - Diagnoses Provider Diagnoses: Cervical radiculopathy Discharge - Discharge Plan Condition: Stable Disposition: HOME Prescriptions: LORazepam TAB(*) [Ativan TAB(*)] 1 mg PO Q6H PRN #20 tab MDD 4 PRN Reason: Pain Patient Education Materials: Cervical Radiculopathy (ED) Referrals: Josse Gomez MD [Primary Care Provider] - 3 Days Additional Instructions: I recommend taking ibuprofen for the pain, 600mg three times a day. Continue to take your pain medication. I am sending you a script for a muscle relaxer. Follow up with your doctor if the pain is not improved in 3-4 days. The documentation as recorded by the Arthur calhoun Thomas accurately reflects the service I personally performed and the decisions made by me, Antonino Perez MD.
== END 2017-08-30 12:59 | disposition home or self-care (01) ==
LOC: ED 08:51
DX: M50.10 Cervical disc disorder with radiculopathy, unspecified cervical region (principal); M47.9 Spondylosis, unspecified; Z87.891 Personal history of nicotine dependence; Z85.07 Personal history of malignant neoplasm of pancreas; Z88.8 Allergy status to other drugs, medicaments and biological substances
CPT/HCPCS: 72125; 72128; 96372; 99282; J1885; J2060; J2270

== ENCOUNTER 2017-12-05 19:07 | Emergency (ER) | payer MEDICAID ==
--- OUTSIDE RECORDS SUMMARY | 2017-12-05 20:06 | XMS REPORT ---
:1955 External Reference #:[id number] Author Organization [facility] Address [address] [address] Phone [phone] Care Team Providers Name Role Phone Kvng Yanez MD Primary Care Physician Unavailable Payers Type Date Identification Numbers Payment Provider Subscriber Medicaid Effective: Policy Number: [id number] Medicaid Rojas Weaver 2015 PayID: [id number] [address] [place] [address] Medigap Part B Effective: 2013 Policy Number: [id number] Medicaid Rojas Weaver Expires: 2015 PayID: [id number] [address] [place] [address] Workers Compensation Onset: 2011 Policy Number: Brian Weaver [id number] PayID: [id number] [address] [place] [address] Problems Date Description Provider Status Onset: 04/15/2016 Malignant tumor of pancreatic Josse Gomez M.D. Active duct Onset: 12/21/2011 Type II diabetes mellitus Josse Gomez M.D. 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 Onset: 10/24/2017 Neck pain Mandy Mcfarlane MD Active Onset: 11/08/2017 Low back pain Josse Gomez M.D. Active Onset: 04/20/2011 Type 2 diabetes mellitus Josse Gomez M.D. Inactive Inactive: 05/10/2016 Onset: 04/20/2011 Impending infarction Phuc Rivera JR., M.D. Inactive Inactive: 05/10/2016 Onset: 04/15/2016 Type 2 diabetes mellitus with Josse Gomez M.D. Inactive diabetic polyneuropathy Inactive: 05/10/2016 Onset: 12/05/2012 Cellulitis Josse Gomez M.D. 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 Cigarette Use Former Cigarette Smoker ETOH Use 10/27/2017 Denies alcohol use Smoking Patient is a former smoker Quit 1995 Recreational Drug Use Regularly uses Marijuana Oils for Cancer Smoking Started smoking at 14, light smoker off and on Daily Caffeine Does Not Consume Caffeine Exercise Type/Frequency Exercises regularly 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 [place], twice a M.D.,FACP day for 10 days then 2 bid Oxymorphone HCL Active Tablets ER 7.5mg 60tabs 1 by M54.12 Clay Duenas ER 018 12HR mouth D. [place], twice a M.D.,FACP day M54.2 Farxiga 09/29/2017 Active Tablets 10mg 30tabs 1 by mouth Kvng Edgar every day Sara Yanez,FACP [place] 09/20/2017 Active Tablets 10-325m 120tabs one tab 4 M54 Jed Edgar g times/day .12 [place], as needed M.DJagruti,FACP for pain Spironolactone 06/22/2017 Active Tablets 25-25mg 90tabs 1 by mouth I10 Ashely /Hydrochloroth every Narvaez, COMPLIANCE ADMINISTRATOR iazide morning BD Insulin 04/25/2017 Active Misc 29G X 150units use up to E11 Jed Edgar Syringe 1/2" 1 five times .65 [place], Safetyglide/1M ML daily as M.D.,FACP L/29G X 1/2" directed Humalog 02/27/2017 Active Solution 100Unit 15ml inject 10 u Kvng Edgar Kwikpen Pen-Inject /ML Am, 10u [place], lunch, 12u M.D.,FACP dinner, and as needed, max 40 unit/day (clarificat ion) Magnesium 02/27/2017 Active Tablets 400mg 60tabs 1 by mouth Kvng Edgar Oxide twice a day MarseillesSara cain,FACP Simvastatin 11/28/2016 Active Tablets 40mg 90tabs Take One Kvng Edgar Tablet By Renata, Mouth At M.D.,FACP Bedtime Amlodipine 11/28/2016 Active Tablets 2.5mg 90tabs Take One Kvng Edgar Besylate Tablet By [place], Mouth Every M.D.,FACP Day Levemir 04/25/2016 Active Solution 100Unit 45ml 50 units in E11 Jed Edgar Flextouch Pen-Inject /ML the in the .42 [place], morning M.D.,FACP & inject 45 units daily at bedtime E11.65 Fluticasone 09/10/2015 Active Suspension 50mcg/Act 1units 2 sprays J30.9 Christa Propionate each Be, nostril M.D. everyday prn Lisinopril 10/29/2013 Active Tablets 40mg 90tabs Take One E11.65 Clay- Dana Tablet By l Tala Mouth [place], Every Day M.D.,FAC P Omeprazole 05/07/[address] 20mg 90caps 1 by K21.9 Christa mouth Be, every day M.D. Metoprolol 11/30/2011 Active Tablets 25mg 270tabs Take One Clay-Dana Tartrate And A l Yan. Half [place], Tablets M.D.,FAC By Mouth P Two Times A Day Freestyle 05/24/2011 Active 100units use as E11.65 Ronak Lite Test directed Korean, Strip three COMPLIANCE ADMINISTRATOR times a day or as needed dx: e11.65 BD Pen 01/25/2011 Active Misc 29G X 150units use as E11.65 Clay-Dana Needle/Ultraf 12.7mm directed l D. ine/29G X with [place], 12.7mm novolog M.D.,FAC and P levimir Aspirin Ec Active Tablets DR 81mg 90tabs 1 tablet E11.65 Unknown Lo-Dose daily. Bethanechol Active Tablets 25mg 120tabs take one Clay-Dana Chloride tablet by l DJagruti mouth Renata, four M.D.,FAC times a P day Metformin HCL Active Tablets 1000mg 180tabs take one E11.42 Clay-Dana tablet by l D. mouth [place], twice a M.D.,FAC day P E11.65 Creon Active Caps [id number] 270caps Take 1 To Kvng Part 3 Capsules DJagruti Yanez, By Mouth 5 M.D.,FACP Minutes Before A Meal Ciprofloxacin 11/08/2017 - Hx Tablets 500mg 20tabs twice a K5 Bunch HCL 11/21/2017 day 7. Pachikara, 31 M.D. Metronidazole 11/08/2017 - Hx Tablets 500mg 30tabs 1 by mouth K5 Josse 11/28/2017 three 7. Pachikara, timses a 32 M.D. day/no alcohol until 5 days after you are done. Hydroxyzine HCL 11/08/2017 - Hx Tablets 10mg 60tabs 1-2 tabs 8 L3 Bunch 11/28/2017 hourly/ No 0. Pachikara, driving 9 M.D. after taking med Medrol 09/07/2017 - Hx Tablets 4mg 1pak medrol S4 Kvng 09/15/2017 dosepack 3. Tala Yanez, as 42 M.D.,FACP directed 2A M54.2 Diclofenac Sodium 08/28/[address] 75mg 40tabs take 1 S43.422A Ashely - tablet twice Narvaez, 09/11/2017 a day with COMPLIANCE ADMINISTRATOR food [place] 08/28/2017 Hx Tablets 5-325 30tabs 1 tabs three S43.422A Ashely - mg times a day Narvaez, 09/20/2017 as needed COMPLIANCE ADMINISTRATOR pain Marijuana Oil 06/22/2017 Hx 2 puffs Kvng ([place]) - before each Tala Yanez, 09/20/2017 meal, Sara,FACP vaporized Jardiance 11/28/2016 Hx Tablets 10mg 30tabs 1 by mouth Kvng - every night Tala Yanez, 02/27/2017 MVenita,FACP Humalog Kwikpen 08/29/2016 Hx Solution 100Un 15ml BS 0-150 no E11.42 Kvng - Pen-Inject it/ML units, Tala Yanez, 10/20/2016 151-200=2 M.D.,FACP units, 201-250=4 units, 251-300=6 units, 301-350=8 units > 351 call MD [place] 07/01/2016 Hx Tablets 20mg 7tabs take 1 Kvng - tablet every Tala Yanez, 10/20/2016 morning for M.D.,FACP 1 wk Magnesium Oxide 05/09/2016 Hx Capsules 400mg 60caps by mouth E83.42 Ronak - twice day Korean, COMPLIANCE ADMINISTRATOR 07/01/2016 Spironolactone 05/09/2016 Hx Tablets 25mg 30tabs Take One I10 Kvng - Tablet By Tala Yanez, 06/22/2017 Mouth Every M.DJagruti,FACP Day Simvastatin 05/04/2016 Hx Tablets 80mg 90tabs take one Bunch - tablet by Jason, 11/28/2016 mouth at M.D. bedtime Humalog Kwikpen 04/25/2016 Hx Solution 100Un 15ml BS 0-150 no E11.42 Josse - Pen-Inject it/ML units, Pachikara, 05/04/2016 151-200=2 M.D. units, 201-250=4 units, 251-300=6 units, 301-350=8 units > 351 call MD Domingo-Alvino M10 01/05/2016 Hx Tablets ER 10Meq 30tabs 1 by mouth E87.6 Christa - every day Be 07/01/2016 MVenita Humulin 70/30 12/29/2015 Hx Suspension (70-3 20 units in Christa - 0)100 am and 20 Be 04/25/2016 Unit/ units in pm M.DJagruti ML Augmentin 08/27/2015 Hx Tablets 875-1 20tabs 1 by mouth J20.9 Christa - 25mg 2x per day Be 09/10/2015 Sara Guaifenesin ER 08/27/2015 Hx Tablets ER 600mg 42tabs 1 by mouth J20.9 Christa - 12HR twice a day Be 12/29/2015 Sara Mag-200 02/27/2015 Hx Tablets 400mg 30tabs 2 tab po Christa - everyday Lr, 12/29/2015 M.D. Humulin N 70/30 02/16/2015 Hx Supn 100Un Take 10 Adryan Kwikpen - it/ML units sc in [place], COMPLIANCE ADMINISTRATOR 02/16/2015 the morning and 10 units sc every evening Humulin 70/30 02/16/2015 Hx Supn (70-3 6units 15 units sq Christa Kwikpen - 0)100 in morning Lr, 12/29/2015 Unit/ and 15 units M.D. ML sq in evening Novolin 30 02/12/2015 Hx Suspension (70-3 6vials 10unit sc in 250.00 Christa - 0)100 the morning Lr, 02/16/2015 Unit/ and 10 sc M.D. ML every evening Novolog Flexpen 01/22/2015 Hx Solution 100Un 2units 12 units Christa - Pen-Inject it/ML every meal Lr, 02/12/2015 M.D. Victoza 07/01/2014 Hx Solution 18mg/ 2pen inject 1.2mg 250.00 Christa - Pen-Inject 3ML subcutaneous Lr, 10/28/2014 ly in the M.D. morning Trazodone HCL 07/01/2014 Hx Tablets 50mg 30tabs 1 tab by 780.52 Christa - mouth at [place], 10/28/2014 bedtime as M.D. needed Nitrostat 07/01/2014 Hx Tablets Sub 0.4mg 25tabs one sl q5min Tyree Caraballo - up to 3 Goodrich, 08/27/2015 doses as M.D., needed FACC, FASNC Flonase 06/05/2014 Hx Suspension 50mcg 1units 1 intranasal 493.90 Christa - /Act puff to each Lr, 10/28/2014 nostril M.D. daily Ventolin HFA 06/05/2014 Hx Aerosol 108(9 1units 2 puffs by 493.90 Christa - 0Base mouth four Lr, 07/01/2014 ) times a day M.D. mcg/A as needed ct BD Ultra-Fine NDL 05/13/2014 Hx 150unit use as Kvng [id number] - adilson Yanez, 04/25/2017 with novolog M.Tala,FACP and levemir- onlys uses levemir Penicillin V 11/07/2013 Hx Tablets 250mg 30tabs 1 po tid Christa Potassium - Be, 11/21/2013 M.D. Silvadene 10/22/2013 Hx Cream 1% 400gm topical bid 917.0 Christa - for 1 wk Be, 07/01/2014 then prn M.D. Lorazepam 09/30/2013 Hx Tablets 1mg 10tabs 1 by mouth Christa - twice a day Be, 08/27/2015 as needed M.D. Hydrochlorothiazi 09/17/2013 Hx Tablets 25mg 90tabs 1 by mouth I10 Christa de - every day Be, 05/04/2016 M.D. Augmentin 08/13/2013 Hx Tablets 875-1 14tabs one by mouth Ofe - 25mg every 12 Cotton, 09/17/2013 hours for 1 M.D. week Zofran 07/04/2013 Hx Tablets 4mg 15tabs take 1 tab 008.69 Gina - by mouth q Razo, 10/03/2013 8h prn as M.D. needed for nausea Doxycycline 12/05/[address] 100mg 20tabs 1 po bid 682.9 Josse Cantrellclmarkel - Jason, 12/05/2012 M.DJagruti Doxycycline 12/05/2012 Hx Capsules 100mg 20caps bid po Josse Hyclate Elzbieta Beanika, 01/28/2013 M.DJagruti Keflex 04/20/2012 Hx Capsules 500mg 28caps 1 po 4 times Gera - per day Donna, 05/07/2012 M.DJagruti Lisinopril 12/06/2011 Hx Tablets 10mg 90tabs 1 po qd Josse Gomez, 03/01/2012 M.DJagruti Levemir Flexpen 10/26/2011 Hx Solution 100Un 30units Inject 45 Lucho [place]-Inject it/ML Units Every Le, 04/25/2016 Morning And M.D. 50 Units In The Evening Hydrochlorothiazi 10/05/2011 Hx Tablets 25mg 90tabs 1 po qd Josse Hui, 10/14/2011 M.DJagruti Naprosyn 08/25/2011 Hx Tablets 500mg 40tabs twice daily Gera - with food x Donna, 10/05/2011 5 days, then M.D. qD prn Furosemide 06/21/2011 Hx Tablets 40mg 30tabs po qam 457.1 Josse Gomez, 10/05/2011 M.D. Potassium 06/21/2011 Hx Tablets ER 20Meq 30tabs take 1 tab 457.1 Josse Chloride ER - by mouth Jason, 10/05/2011 daily M.D. Naproxen 06/07/[address] 375mg 30tabs bid 719.06 Josse Gomez, 07/12/2011 M.D. Zithromax Z-Isaac 06/07/2011 Hx Tablets 250mg 1tabs 2tab today 466.0 Bunch - and 1tab Jason, 06/21/2011 daily x M.D. 4days Accu-Chek Comfort 05/23/2011 Hx Strips 120unit qid and prn 250.00 Josse Curve Test Strips - s Jason, 03/01/2012 M.DJagruti Levemir Flexpen 04/20/2011 Hx Solution 100Un 5Vials 40 am 45 pm 250.00 Josse - it/ML Vikasika, 10/26/2011 M.DJagruti Novolog Flexpen 04/20/2011 Hx Solution 100Un 2units Inject 12 250.00 Christa - Pen-Inject it/ML Units Under Lr, 07/01/2014 The Skin M.D. Before Every Meal Benadryl Allergy 04/13/2011 Hx Capsules 25mg 60caps 2- 4 tabs Bunch - for Pachika, 04/13/2011 allergies M.D. Zolpidem Tartrate 01/19/2011 Hx Tablets 10mg 30tabs 1/2 to 1 tab 780.52 Bunch - po qhs prn Vikasikara, 04/20/2011 M.D. Nucynta Hx Tablets 100mg 60tabs 1 po q 6hrs Unknown - 06/21/2011 Oxycontin Hx Tablets ER 40mg 60tabs 1 po bid Unknown - 12HR 10/28/2014 Hydrochlorothiazi Hx Capsules 12.5m 90caps 1 po qd Unknown de - g 01/19/2011 Metoprolol Hx Tablets ER 25mg 180tabs 1 po bid Josse Gomez, 11/30/2011 M.DJagruti Aspirin Hx Tablets DR 325mg 1 po qd Unknown - 12/21/2011 Famotidine Hx Tablets 40mg 90tabs 1 po qd Bunch Jason, 05/07/2012 M.D. Plavix Hx Tablets 75mg 90tabs 1 po qd Bunch Jason, 03/16/2012 M.D. Lisinopril Hx Tablets 10mg 45tabs 1/2 tab qd [facility] Vikassan [facility], 12/06/2011 M.D. Levemir Flexpen Hx Solution 100Un 5Vials 40 units Josse - it/ML q12h Pachika, 04/20/2011 M.D. Novolog Flexpen Hx Solution 100Un 1Box 10units subq Bunch - it/ML before every Pachikara, 04/20/2011 meal M.D. Percocet Hx Tablets 10-32 60tabs 1 po qid prn Bunch - 5mg Jason, 10/05/2011 M.D. Hydrochlorothiazi Hx Capsules 12.5m 30caps 1 po qd Bunch erasmo Elzbieta manju Gomez, 09/17/2013 M.D. Nucynta Hx Tablets 100mg 2-4 daily Unknown - 10/28/2014 Lisinopril Hx Tablets 20mg 90tabs Take One Bunch - Tablet By Vikasika, 10/29/2013 Mouth Every M.D. Day Zyrtec Allergy Hx Tablets 10mg 30tabs 1 po qd prn Unknown - 07/01/2014 Simvastatin Hx Tablets 80mg 90tabs Take One Bunch - Tablet By Jason, 04/15/2016 Mouth At M.D. Bedtime Magnesium Oxide Hx Tablets 400mg 1 by mouth Unknown - bid 10/20/2016 Potassium Hx Tablets ER 20Meq 1 by mouth Unknown Chloride ER - every day 10/20/2016 Prochlorperazine Hx Tablets 10mg 1 po four Unknown Maleate - times a day 11/28/2016 prn Ondansetron HCL Hx Tablets 4mg one by mouth Unknown - every 8 11/28/2016 hours as needed for nausea Medications Administered in Office Medication Date Status Form Strength Qnty SIG Indications Ordering Provider Inj, Administered Injection Tyree Caraballo Regadenoson, 017 Kp, 0.1 MG Sara, [facility], [facility] Technetium TC Administered Injection Tyree Caraballo 99M 017 Tabatha Goodrich M.D., [facility], Per Unit Dose [facility] Up To 40 Millicuries Immunizations CPT Code Status Date Vaccine Lot # 16940 Given 06/22/2017 Influenza Virus Vaccine, Quadrivalent, Split, [id number] Preservative Free 54157 Given 05/20/2016 Influenza Virus Vaccine, Quadrivalent, Split, [id number] Preservative Free 71429 Given 05/26/2015 Influenza Virus Vaccine, Quadrivalent, Split, [id number] Preservative Free 78877 Given 10/28/2014 Hepatitis B Vaccine Adult Dosage [id number] 25248 Given 10/28/2014 Pneumococcal Conjugate Vaccine 13 Valent For [id number] Intramuscular Use 03276 Given 06/05/2014 Flu Vaccine Split Virus Preservative Free For [id number] Indiv 3Yr Older 54321 Given 11/21/2013 Hepatitis B Vaccine Adult Dosage [id number] 43490 Given 10/22/2013 Hepatitis B Vaccine Adult Dosage [id number] 91650 Given 07/04/2013 Flu Vaccine Split Virus Preservative Free For [id number] Indiv 3Yr Older 66750 Given 04/23/2012 Influenza Virus 3Yrs & Over 93010 Given 07/12/2011 Influenza Virus 3Yrs & Over 64634 Given 07/12/2011 Influenza Virus 3Yrs & Over [id number] 17561 Given 08/14/2006 Tdap - Tetanus/Diptheria/Acellular Pertussis Vital Signs Date Vital Result Comment 11/28/2017 Weight 277.00 lb Heart Rate 77 /min BP Systolic Sitting 114 mmHg BP Diastolic Sitting 72 mmHg Body Temperature 96.6 F O2 % BldC Oximetry 97 % 11/21/2017 Height 75 inches 6'3" Weight 274.00 lb Heart Rate 58 /min BP Systolic Sitting 112 mmHg BP Diastolic Sitting 78 mmHg Pain Level 6 BMI (Body Mass Index) 34.2 kg/m2 11/08/2017 Height 75 inches 6'3" Weight 274.00 lb Heart Rate 66 /min BP Systolic Sitting 114 mmHg BP Diastolic Sitting 70 mmHg Body Temperature 96.8 F O2 % BldC Oximetry 96 % BMI (Body Mass Index) 34.2 kg/m2 10/27/2017 Weight 273.00 lb Heart Rate 77 /min BP Systolic 118 mmHg BP Diastolic 65 mmHg Body Temperature 97.0 F O2 % BldC Oximetry 96 % 10/24/2017 Height 75 inches 6'3" Weight 285.00 lb Heart Rate 62 /min BP Systolic Sitting 110 mmHg BP Diastolic Sitting 70 mmHg Pain Level 5 BMI (Body Mass Index) 35.6 kg/m2 09/29/2017 Weight 285.00 lb Heart Rate 71 /min BP Systolic Sitting 122 mmHg BP Diastolic Sitting 78 mmHg Body Temperature 96.8 F O2 % BldC Oximetry 95 % 09/20/2017 Weight 290.00 lb Heart Rate 62 /min BP Systolic 120 mmHg BP Diastolic 76 mmHg Body Temperature 97.5 F O2 % BldC Oximetry 98 % 08/28/2017 Weight 289.00 lb Heart Rate 63 [...] Test Date Test Result H/L Range Note Comp Metabolic Panel 11/14/2017 Sodium 136 mmol/L Low 139-145 Potassium 5.0 mmol/L 3.5-5.0 Chloride 103 mmol/L 101-111 Co2 Carbon Dioxide 27 mmol/L 22-32 Anion Gap 6 mmol/L 2-11 Glucose 215 mg/dL High 70-100 Blood Urea Nitrogen 13 mg/dL 6-24 Creatinine 1.53 mg/dL High 0.67-1.17 BUN/Creatinine Ratio 8.5 8-20 Calcium 9.0 mg/dL 8.6-10.3 Total Protein 6.0 g/dL Low 6.4-8.9 Albumin 3.5 g/dL 3.2-5.2 Globulin 2.5 g/dL 2-4 Albumin/Globulin Ratio 1.4 1-3 Total Bilirubin 0.60 mg/dL 0.2-1.0 Alkaline Phosphatase 323 U/L High 34-104 Alt 50 U/L 7-52 Ast 45 U/L High 13-39 Egfr Non- 46.2 >60 Egfr 59.4 >60 1 Laboratory test finding 11/14/2017 Hemoglobin A1c (Glyco 9.6 % High 4.0- 5.6 2 HGB) CBC Auto Diff 11/14/2017 White Blood Count 6.3 10^3/uL 3.5-10.8 Red Blood Count 4.33 10^6/uL 4.0-5.4 Hemoglobin 12.6 g/dL Low 14.0-18.0 Hematocrit 38 % Low 42-52 Mean Corpuscular Volume 88 fL 80-94 Mean Corpuscular Hemoglobin 29 pg 27-31 Mean Corpuscular HGB Conc 33 g/dL 31-36 Red Cell Distribution Width 16 % High 10.5-15 Platelet Count 107 10^3/uL Low 150-450 Mean Platelet Volume 10.0 um3 7.4-10.4 Abs Neutrophils 4.4 10^3/uL 1.5-7.7 Abs Lymphocytes 0.9 10^3/uL Low 1.0-4.8 Abs Monocytes 0.8 10^3/uL 0-0.8 Abs Eosinophils 0.1 10^3/uL 0-0.6 Abs Basophils 0 10^3/uL 0-0.2 Abs Nucleated RBC 0 10^3/uL Granulocyte % 68.9 % 38-83 Lymphocyte % 14.5 % Low 25-47 Monocyte % 13.4 % High 0-7 Eosinophil % 2.4 % 0-6 Basophil % 0.8 % 0-2 Nucleated Red Blood Cells % 0.2 Laboratory test finding 09/29/2017 Hemoglobin A1c 11.7 High 5-7 Urine Microalbumin Random 06/22/2017 Urine Creatinine 114.69 mg/dL Ur Microalbumin (mg/L) 983.4 mg/L Urine Microalbumin/Creatinine 857.4 ug/mg High <31 Laboratory test finding 06/22/2017 Hemoglobin A1c 7.4 High 5-7 Laboratory test finding 02/17/2017 Magnesium 1.5 mg/dL Low 1.9-2.7 3 Hemoglobin A1c (Glyco HGB) 9.3 % High Less than 6.0 4 Lipid Profile (Trig/Chol/HDL) 02/17/2017 Triglycerides 71 mg/dL 5 Cholesterol 118 mg/dL 6 HDL Cholesterol 48.8 mg/dL 7 LDL Cholesterol 55 mg/dL 8 CBC Auto Diff 02/17/2017 White Blood Count [...] Blood Cells % 0.1 Comp Metabolic Panel 02/17/2017 Sodium 137 mmol/L [...] Egfr Non- 65.1 >60 Egfr 83.7 >60 9 Laboratory test finding 11/28/2016 Hemoglobin A1c 8.0 High 5-7 Laboratory test finding 10/18/2016 Point of Care Glucose 161 mg/dL High 74 -106 10 Laboratory test finding 10/17/2016 Point of Care Glucose 242 mg/dL High 74 -106 11 Laboratory test finding 10/17/2016 Point of Care Glucose 253 mg/dL High 74 -106 12 Laboratory test finding 10/05/2016 Blood Urea Nitrogen 19 mg/dL 6-24 BUN Creatinine 10/05/2016 Creatinine 1.04 mg/dL 0.67-1.17 Egfr Non- 72.6 >60 Egfr 93.4 >60 13 Laboratory test finding 08/29/2016 Hemoglobin A1c 10.0 [...] Egfr Non- 67.3 >60 Egfr 86.6 >60 14 Laboratory test finding 05/24/2016 Magnesium 1.2 mg/dL [...] 0-2 Nucleated Red Blood Cells % 0 Lipid Profile (Trig/Chol/HDL) 05/10/2016 Triglycerides 81 mg/dL 15 Cholesterol 105 mg/dL 16 HDL Cholesterol 38.2 mg/dL 17 LDL Cholesterol 51 mg/dL 18 Urine Microalbumin Random 05/10/2016 Urine Creatinine 43.09 [...] Egfr Non- 88.0 >60 Egfr 113.2 >60 19 Laboratory test finding 05/10/2016 Magnesium 1.3 mg/dL Low 1.9-2.7 Iron & Iron Binding Capacity 05/10/2016 Iron 74 g/dL 50-212 Unsaturated Iron Binding 291 g/dL Total Iron Binding Capacity 365 g/dL 250-450 % Iron Saturation 20 % 15-55 Laboratory test finding 05/10/2016 Ferritin 180.4 ng/mL 24-336 Vitamin B12 1173 pg/mL High 180-914 20 Folic Acid (Folate) > 20.00 ng/mL >3.99 Comp Metabolic Panel 05/10/2016 Sodium 138 mmol/L [...] Egfr Non- 85.8 >60 Egfr 110.3 >60 21 CBC Auto Diff 05/10/2016 White Blood Count [...] 0-2 Nucleated Red Blood Cells % 0.1 CBC Auto Diff 05/03/2016 White Blood Count [...] Egfr Non- 60.4 >60 Egfr 77.7 >60 22 Laboratory test finding 05/03/2016 Troponin-I (TnI) 0.01 ng/mL <0.03 23 TSH (Thyroid Stim Horm) 1.98 mcIU/mL 0.34-5.60 Magnesium 0.9 mg/dL Low 1.9-2.7 24 Hemoglobin A1c (Glyco HGB) 7.5 % High Less than 6.0 25 Laboratory test finding 05/02/2016 Lactic Acid 2.2 mmol/L High 0.5-2.0 26 B-Type Natriuretic Peptide BNP 84 pg/mL 27 Comp Metabolic Panel 05/02/2016 Sodium 135 mmol/L [...] Egfr Non- 48.3 >60 Egfr 62.1 >60 28 Laboratory test finding 05/02/2016 C Reactive Protein 79.19 mg/L High &lt ; 5.00 29 Troponin-I (TnI) 0.01 ng/mL <0.03 30 CBC Auto Diff 05/02/2016 White Blood Count [...] 0-2 Nucleated Red Blood Cells % 0.1 Laboratory test finding 05/02/2016 Point of Care 115 mg/dL High 74-106 31 Glucose Laboratory test finding 05/02/2016 Partial Thrombo Time 25.8 seconds Low 26.0-36.3 PTT Fibrinogen 561 mg/dL High 110.8-404.3 Inr/Protime 05/02/2016 Inr 1.21 High 0.89-1.11 Laboratory test finding 04/15/2016 Hemoglobin A1c 7.5 High 5-7 Laboratory test finding 01/09/2016 Magnesium 1.4 mg/dL Low 1.9-2.7 Lipase 105 U/L High 11.0-82.0 Comp Metabolic Panel 01/09/2016 Sodium 135 mmol/L [...] Egfr Non- 61.6 >60 Egfr 79.2 >60 32 Laboratory test finding 01/09/2016 Lactic Acid 1.4 mmol/L 0.5-2.0 33 CBC Auto Diff 01/09/2016 White Blood Count [...] 0-2 Nucleated Red Blood Cells % 0.5 Comp Metabolic Panel 01/05/2016 Sodium 141 mmol/L [...] Egfr Non- 64.7 >60 Egfr 83.1 >60 34 Laboratory test finding 12/29/2015 Hemoglobin A1c 5.3 5-7 Laboratory test finding 09/10/2015 Hemoglobin A1c 9.1 High 5-7 Laboratory test finding 05/26/2015 Hemoglobin A1c 9.1 High 5-7 Laboratory test finding 03/31/2015 Magnesium 1.6 mg/dL Low 1.9-2.7 Laboratory test finding 02/27/2015 Magnesium 1.5 mg/dL Low 1.9-2.7 35 PSA Screening 0.379 ng/mL 0-4.000 36 Urine Microalbumin Random 02/12/2015 Ur Microalbumin (mg/L) [...] Egfr Non- 74.5 >60 Egfr 95.8 >60 37 Lipid Profile (Trig/Chol/HDL) 01/26/2015 Triglycerides 64 mg/dL 38 Cholesterol 97 mg/dL 39 HDL Cholesterol 41.7 mg/dL 40 LDL Cholesterol 43 mg/dL 41 Laboratory test 01/26/2015 Hemoglobin A1c (Glyco 11.7 % High Less than 42 finding HGB) 6.0 Laboratory test 10/28/2014 Hemoglobin A1c 8.9 High 5-7 finding Laboratory test 06/05/2014 Hemoglobin A1c 7.5 High 5-7 finding Lipid Profile 02/24/2014 Triglycerides 87 mg/dL 43, 44 (Trig/Chol/HDL) Cholesterol 100 mg/dL 43, 45 HDL Cholesterol 40.2 mg/dL 43, 46 LDL Cholesterol 42 mg/dL 43, 47 Urine Microalbumin 02/24/2014 Ur Microalbumin (mg/L) 191.0 mg/dL <30 43, 48 Random Urine Creatinine 164.49 mg/dL 43 Urine Microalbumin/Creatinine 116.1 High Less Than 31 43 Laboratory test 02/24/2014 Hemoglobin A1c 7.7 % High Less than 6.0 43, 49 finding Laboratory test 11/21/2013 Hemoglobin A1c 7.7 High 5-7 finding CBC Auto Diff 09/19/2013 White Blood Count [...] Egfr Non- 86.7 >60 Egfr 111.5 >60 50 Laboratory test finding 09/19/2013 Troponin I 0.01 ng/mL 0-0.06 51 Laboratory test finding 05/28/2013 Hemoglobin A1c 6.6 [...] test 04/22/2013 Methylmalonic Acid 0.22 nmol/mL <=0.40 52 finding Laboratory test 01/28/2013 Hemoglobin A1c 8.5 High 5-7 finding Urine Microalbumin 01/22/2013 Ur Microalbumin (mg/L) 548.0 mg/L 53 Random Urine Creatinine 175.5 mg/dL Urine Microalbumin/Creatinine 312.3 High Less Than 31 Comp Metabolic Panel 01/22/2013 Sodium 139 mmol/L [...] Non- 68.8 >60 Egfr 88.4 >60 54 Lipid Profile (Trig/Chol/HDL) 01/22/2013 Triglycerides 65 mg/dL 40-200 Cholesterol 108 mg/dL Less than 200 HDL Cholesterol 40 mg/dL 40-60 55 Cholesterol/HDL Ratio 2.7 Average 1-4.44 LDL Cholesterol 55.0 Less Than 100 56 Laboratory test finding 01/22/2013 Lyme Disease Serology Negative Negative 57 Oncology CBC Auto Diff 01/15/2013 White Blood [...] 1.9 1-3 Total Bilirubin 0.6 mg/dL 0.1-1.0 58 Direct Bilirubin 0.1 mg/dL 0.1-0.5 Indirect Bilirubin [...] 6.2 GM/DL 6.2-8.1 Spep Comments (SEE NOTE) 59 Serum Immunofixation (SEE NOTE) 60 Laboratory test finding 06/01/2012 Hepatitis B Surface Nonreactive Nonreactive 61 Antigen Hepatitis B [place] AB 06/01/2012 Hepatitis B Surface Nonreactive Nonreactive Titer AB Hep B Surf AB Index 0.13 62 Laboratory test finding 06/01/2012 Hepatitis B Core IgM Nonreactive Nonreactive 63 Hepatitis C Antibody Nonreactive Nonreactive 64 Laboratory test finding 05/07/2012 Hemoglobin A1c 7.2 High 5-7 Vitamin B12 And Folate Serum 04/23/2012 Vitamin B12 313 pg/mL 180-914 Folic Acid 23.9 NG/ML See Below 65 Iron & Iron Binding Capacity 04/23/2012 Iron Total 82 g/dL 45-182 Unsaturated Iron Binding 326 g/dL Total Iron Binding Capacity 408 g/dL 250-450 % Iron Saturation 20 % 15-55 Laboratory test finding 04/23/2012 Ferritin 54 NG/ML 24-336 Laboratory test finding 03/30/2012 PTT (Aptt) 25.4 SEC 25.1-38.5 Protime 03/30/2012 Inr 0.87 Low 0.88-1.13 66 Protime 10.3 SEC 10.3-13.5 67 Basic Metabolic Panel 03/30/2012 Sodium 138 mmol/L 135-145 Potassium 4.2 mmol/L 3.5-5.0 Chloride 105 mmol/L 101-111 Co2 (Carbon Dioxide) 27.0 mmol/L 22-32 Anion Gap 6.0 mmol/L 2-11 68 Glucose 151 mg/dL High 70-100 BUN 21 mg/dL 6-24 Creatinine 1.0 mg/dL 0.50-1.40 One Over Creatinine 1.00 BUN/Creatinine Ratio 21.0 High 8-20 Calcium 9.1 mg/dL 8.1-9.9 eGFR Non- 77.0 > 60 eGFR 99.0 > 60 69 CBC No Diff 03/30/2012 White Blood Count [...] 150-450 Mean Platelet Volume 9.2 um3 7.4-10.4 Retic Count 03/20/2012 Reticulocyte Count 1.32 % 0.5-1.5 Corrected Retic 1.0 % 0.5-1.5 Retic Index 0.7 Mean Retic Volume 99.1 Immature Retic Fraction 0.38 RBC Retic Count 4.19 CUMM Low 4.6-6.2 Hematocrit For Retic Coun 35 % Low 42-52 Basic Metabolic Panel 03/20/2012 Sodium 140 mmol/L 135-145 Potassium 4.7 mmol/L 3.5-5.0 Chloride 103 mmol/L 101-111 Co2 (Carbon Dioxide) 30.0 mmol/L 22-32 Anion Gap 7.0 mmol/L 2-11 70 Glucose 111 mg/dL High 70-100 BUN 23 mg/dL 6-24 Creatinine 1.1 mg/dL 0.50-1.40 One Over Creatinine 0.90 BUN/Creatinine Ratio 20.9 High 8-20 Calcium 8.7 mg/dL 8.1-9.9 eGFR Non- 69.0 > 60 eGFR 88.7 > 60 71 CBC With Manual Diff 03/20/2012 White Blood [...] Atypical Lymph 1 % 0-6 Anisocytosis SLIGHT Laboratory test finding 03/20/2012 Ferritin 59 NG/ML 24-336 Vitamin B12 211 pg/mL 180-914 Folic Acid 15.3 NG/ML See Below 72 Urine Microalbumin Random 03/01/2012 Microalbumin (MG/L) 247.0 mg/L Urine Creatinine 117.3 mg/dL Nazario Alb/Creatinine Ratio 210.6 UG/MG High Less Than 30 73 Laboratory test finding 03/01/2012 Hemoglobin A1c 7.5 High 5-7 Basic Metabolic Panel 02/03/2012 Sodium 136 mmol/L 135-145 Potassium 4.8 mmol/L 3.5-5.0 Chloride 101 mmol/L 101-111 Co2 (Carbon Dioxide) 29.0 mmol/L 22-32 Anion Gap 6.0 mmol/L 2-11 74 Glucose 307 mg/dL High 70-100 BUN 20 mg/dL 6-24 Creatinine 1.2 mg/dL 0.50-1.40 One Over Creatinine 0.83 BUN/Creatinine Ratio 16.7 8-20 Calcium 8.8 mg/dL 8.1-9.9 eGFR Non- 62.4 > 60 eGFR 80.3 > 60 75 CBC Auto Diff 02/01/2012 White Blood Count [...] Eosinophils 0.2 0-0.6 Abs Basophils 0 0-0.2 Protime 02/01/2012 Inr 0.87 Low 0.88-1.13 76 Protime 10.3 SEC 10.3-13.5 77 Comp Metabolic Panel 02/01/2012 Sodium 136 mmol/L 135-145 Potassium 4.3 mmol/L 3.5-5.0 Chloride 101 mmol/L 101-111 Co2 (Carbon Dioxide) 29.0 mmol/L 22-32 Anion Gap 6.0 mmol/L 2-11 78 Glucose 95 mg/dL 70-100 BUN 24 mg/dL 6-24 Creatinine 1.3 mg/dL 0.50-1.40 One Over Creatinine 0.76 BUN/Creatinine Ratio 18.5 8-20 Calcium 9.1 mg/dL 8.1-9.9 Total Protein 7.2 GM/DL 6.2-8.1 Albumin 4.0 GM/DL 3.6-5.4 Globulin 3.2 GM/DL 2-4 Albumin/Globulin Ratio 1.3 1-3 Bilirubin Total 0.7 mg/dL 0.4-1.5 79 Alkaline Phosphatase 48 U/L 39-117 Alt (SGPT) 22 U/L 17-63 Ast (Sgot) 29 U/L 12-42 eGFR Non- 56.9 > 60 eGFR 73.2 > 60 80 Laboratory test finding 02/01/2012 Troponin-I 0 NG/ML 0-0.06 81 Laboratory test finding 10/26/2011 Hemoglobin A1c 8.2 High 5-7 Comp Metabolic Panel 10/10/2011 Sodium 141 mmol/L 135-145 Potassium 5.0 mmol/L 3.5-5.0 Chloride 104 mmol/L 101-111 Co2 (Carbon Dioxide) 30.0 mmol/L 22-32 Anion Gap 7.0 mmol/L 2-11 82 Glucose 172 mg/dL High 70-100 BUN 16 mg/dL 6-24 Creatinine 1.0 mg/dL 0.50-1.40 One Over Creatinine 1.00 BUN/Creatinine Ratio 16.0 8-20 Calcium 8.9 mg/dL 8.1-9.9 Total Protein 5.9 GM/DL Low 6.2-8.1 Albumin 3.7 GM/DL 3.6-5.4 Globulin 2.2 GM/DL 2-4 Albumin/Globulin Ratio 1.7 1-3 Bilirubin Total 0.5 mg/dL 0.4-1.5 83 Alkaline Phosphatase 55 U/L 39-117 Alt (SGPT) 18 U/L 17-63 Ast (Sgot) 22 U/L 12-42 eGFR Non- 77.3 > 60 eGFR 99.4 > 60 84 Lipid Profile (Trig/Chol/HDL) 10/10/2011 Triglyceride 63 mg/dL 40-200 Cholesterol 130 mg/dL Less Than 200 85 High Density Lipoprotein 52 mg/dL 40-60 86 Cholesterol/HDL Ratio 2.50 AVERAGE 1-4.97 Low Density Lipoprotein 65 mg/dL Less Than 100 87 Laboratory test finding 04/20/2011 Hemoglobin A1c 7.2 [...] 5 Kidney failure <15 (or dialysis) 2 Therapeutic target for the treatment of diabetes mellitus patients is <7% HBA1C, and in selective patients <6.0%. Please refer to [place] [employer] diabetic care guidelines for further information. 3 FASTING 10 HOUR 4 Therapeutic target for the treatment of diabetes Mellitus patients is <7% HBA1C, and in selective patients <6.0%.Please refer to [place] [employer] Diabetic care guidelines for further information. 5 Desirable <150 Borderline high 150-199 High 200-499 Very High >500 6 Desirable <200 Borderline high 200-239 High >239 7 Low <40 Desirable: 40-60 High: >60 8 Desirable: <100 mg/dL Near Optimal: 100-129 mg/dL Borderline High: 130-159 mg/dL High: 160-189 mg/dL Very High: >189 mg/dL 9 Because ethnic data is not always readily [...] 15-29 5 Kidney failure <15 (or dialysis) 10 Apartment Rental Agent: [id number] NÚÑEZ 11 Apartment Rental Agent: [id number] YISEL NÚÑEZ 12 Apartment Rental Agent: [id number] YISEL NÚÑEZ 13 Because ethnic data is not always [...] 5 Kidney failure <15 (or dialysis) 14 Because ethnic data is not always readily [...] 15-29 5 Kidney failure <15 (or dialysis) 15 Desirable <150 Borderline high 150-199 High 200-499 Very High >500 16 Desirable <200 Borderline high 200-239 High >239 17 Low <40 Desirable: 40-60 High: >60 18 Desirable: <100 mg/dL Near Optimal: 100-129 mg/dL Borderline High: 130-159 mg/dL High: 160-189 mg/dL Very High: >189 mg/dL 19 Because ethnic data is not always readily [...] 15-29 5 Kidney failure <15 (or dialysis) 20 Normal Range 180 to 914 Indeterminate Range 145 to 180 Deficient Range <145 21 Because ethnic data is not always readily [...] 15-29 5 Kidney failure <15 (or dialysis) 22 Because ethnic data is not always readily [...] 15-29 5 Kidney failure <15 (or dialysis) 23 Reference Range and Interpretation: TnI (ng/mL) Interpretation Less Than 0.03 ng/mL Not supportive of diagnosis of CA 0.03 - 0.50 ng/mL Indeterminate: suggest serial studies if clinically indicated. Greater than 0.5 ng/mL Consistent with diagnosis of CA 24 Critical Result M.9 Called to [id number] at: 13:12:04 by:[id number] Read back by:[id number] 25 Therapeutic target for the treatment of diabetes Mellitus patients is <7% HBA1C, and in selective patients <6.0%.Please refer to [place] [employer] Diabetic care guidelines for further information. 26 Critical Result LACT:2.2 Called to [id number] at: 22:27:22 by:[id number] Read back by:[id number] [facility] Severe Sepsis and Septic Shock Management Bundle Measure requires all lactic acids initially measuring >2.0 mmol/L be repeated. 27 >100 to <200 pg/mL: likely compensated congestive heart failure (CHF) 200 to 400 pg/mL: likely moderate CHF >400 pg/mL: likely moderate to severe CHF 28 Because ethnic data is not always readily [...] 15-29 5 Kidney failure <15 (or dialysis) 29 Acute inflammation: >10.00 30 Reference Range and Interpretation: TnI (ng/mL) Interpretation Less Than 0.03 ng/mL Not supportive of diagnosis of CA 0.03 - 0.50 ng/mL Indeterminate: suggest serial studies if clinically indicated. Greater than 0.5 ng/mL Consistent with diagnosis of CA 31 Apartment Rental Agent: [id number] AMY SANCHEZ 32 Because ethnic data is not always [...] 5 Kidney failure <15 (or dialysis) 33 [facility] Severe Sepsis and Septic Shock Management Bundle Measure requires all lactic acids initially measuring >2.0 mmol/L be repeated. 34 Because ethnic data is not always readily [...] 15-29 5 Kidney failure <15 (or dialysis) 35 [MG] affected by ICTERUS 36 Serum levels of PSA measured using the [employer] Bl[employer] DXI Hybritech immunoassay should not be interpreted [...] methods or kits cannot be used interchangeably. 37 Because ethnic data is not always readily [...] 15-29 5 Kidney failure <15 (or dialysis) 38 Desirable <150 Borderline high 150-199 High 200-499 Very High >500 39 Desirable <200 Borderline high 200-239 High >239 40 Low <40 Desirable: 40-60 High: >60 41 Desirable: <100 mg/dL Near Optimal: 100-129 mg/dL Borderline High: 130-159 mg/dL High: 160-189 mg/dL Very High: >189 mg/dL 42 Therapeutic target for the treatment of diabetes Mellitus patients is <7% HBA1C, and in selective patients <6.0%.Please refer to [place] [employer] Diabetic care guidelines for further information. 43 FASTING 12 HOUR 44 Desirable <150 Borderline high 150-199 High 200-499 Very High >500 45 Desirable <200 Borderline high 200-239 High >239 46 Low <40 Desirable: 40-60 High: >60 47 Desirable <100 Near Optimal 100-129 Borderline high 130-159 High 160-189 Very High >189 48 Microalbuminuria in a random sample is defined as: Microalbumin/Creatinine ratio of 30-299 ug/mg. 49 Therapeutic target for the treatment of diabetes Mellitus patients is <7% HBA1C, and in selective patients <6.0%.Please refer to [place] [employer] Diabetic care guidelines for further information. 50 Because ethnic data is not always readily [...] 15-29 5 Kidney failure <15 (or dialysis) 51 Reference Range and Interpretation: TnI (ng/mL) Interpretation Less Than 0.06 ng/mL Not supportive of diagnosis of CA 0.06 - 0.50 ng/mL Indeterminate: suggest serial studies if clinically indicated. Greater than 0.5 ng/mL Consistent with diagnosis of CA 52 Test Performed by: [address] [address] Rig Supervisor: John Cash III, M.D. 53 Microalbuminuria in a random sample is defined as: Microalbumin/Creatinine ratio of 30-299 ug/mg. 54 Because ethnic data is not always [...] 5 Kidney failure <15 (or dialysis) 55 HDL Interpretation: Undesirable: High Risk: Less than 40 mg/dL Desirable: Low Risk: Greater than 60 mg/dL 56 LDL Interpretation: Low Risk Optimal Level: LDL Less than 100 mg/dL Near or Above Optimal: LDL 100-129 mg/dL Borderline High Risk: LDL 130-159 mg/dL High Risk: LDL 160-189 mg/dL Very High Risk: LDL Greater than 189 mg/dL 57 Serologic response to B. burgdorferi infection is not detected, but cannot rule out early infection during which low or undetectable antibody levels to B. burgdorferi may be present. If clinically indicated, a new serum specimen should be submitted in 7-14 days. Test Performed by: [place] [address] Rig Supervisor: John Cash III, M.D. 58 A metabolite of Naproxen, O-desmethylnaproxen, has been shown to interfere with the Jendrassik-[place] method for measuring total bilirubin. Samples from patients who have taken Naproxen have shown spurious elevation in total bilirubin levels. 59 Normal serum electrophoretic pattern. 60 Normal serum immunofixation electrophoretic pattern. No monoclonal protein detected. 61 @Sample frozen by [id number] at 2041 on 06/01/12. 62 The World Health Organization (WHO) Hepatitis B Immunoglobulin 1st International Reference Preparation (1976): The accepted criteria for immunity to HBV is anti-HBs activity greater than or equal to 10 mIU/mL. An Index Value of 1.00 is equivalent to 10 mIU/mL. Samples with an Index Value of 1.00 or greater are considered reactive (protective) in accordance with the CDC guidelines. 63 @Sample frozen by [id number] at 2041 on 06/01/12. 64 @Sample frozen by [id number] at 2041 on 06/01/12. 65 Please note: New reference range, effective 08/04/11 NORMAL REFERENCE RANGE: GREATER THAN 4.1 NG/ML 66 Recommended INR for Patients on Oral [...] 5 Kidney failure <15 (or dialysis) 70 Anion gap measurement may be of limited value in the presence of any alkalosis, especially in a combined acid base disorder. . 71 Because ethnic data is not always readily [...] 15-29 5 Kidney failure <15 (or dialysis) 72 Please note: New reference range, effective 08/04/11 NORMAL REFERENCE RANGE: GREATER THAN 4.1 NG/ML 73 MICROALBUMINURIA IN A RANDOM SAMPLE IS DEFINED : MICROALBUMIN/CREATININE RATIO OF 30-299 ug/mg. . 74 Anion gap measurement may be of limited value in the presence of any alkalosis, especially in a combined acid base disorder. . 75 Because ethnic data is not always readily [...] 15-29 5 Kidney failure <15 (or dialysis) 76 Recommended INR for Patients on Oral Anticoagulants Prophylaxis 2.0 - 3.0 Treatment of thrombosis 2.0 - 3.0 Prevention of embolism 2.0 - 3.0 Prevention of embolism from prosthetic heart valves 2.5 - 3.5 77 DIAGNOSIS,TREATMENT,AND THERAPY MUST BE BASED ON THE INR VALUE ALONE. 78 Anion gap measurement may be of limited value in the presence of any alkalosis, especially in a combined acid base disorder. . 79 A metabolite of Naproxen, O-desmethylnaproxen, has been shown to interfere with the Jendrassik-Amol method for measuring total bilirubin. Samples from patients who have taken Naproxen have shown spurious elevation in total bilirubin levels. 80 Because ethnic data is not always readily [...] 15-29 5 Kidney failure <15 (or dialysis) 81 New Reference Range and Interpretation effective 05/17/2002 TnI (ng/ml) INTERPRETATION Less Than 0.06 ng/mL NOT SUPPORTIVE OF DIAGNOSIS OF CA 0.06 - 0.50 ng/ml INDETERMINATE: SUGGEST SERIAL STUDIES IF CLINICALLY INDICATED. Greater than 0.5 ng/mL CONSISTENT WITH DIAGNOSIS OF CA . 82 Anion gap measurement may be of limited value in the presence of any alkalosis, especially in a combined acid base disorder. . 83 A metabolite of Naproxen, O-desmethylnaproxen, has been shown to interfere with the Jendrassik-Amol method for measuring total bilirubin. Samples from patients who have taken Naproxen have shown spurious elevation in total bilirubin levels. 84 Because ethnic data is not always readily [...] 15-29 5 Kidney failure <15 (or dialysis) 85 CHOLESTEROL INTERPRETATION: Desirable: Less than 200 MG/DL Borderline-High Risk: 200-239 MG/DL High-Risk: 240 MG/DL and over 86 HDL INTERPRETATION: Undesirable: High Risk: Less than 40 MG/DL Desirable: Low Risk: Greater than 60 MG/DL 87 LDL INTERPRETATION: Low Risk Optimal Level: LDL Less than 100 MG/DL Near or Above Optimal: LDL 100-129 MG/DL Borderline High Risk: LDL 130-159 MG/DL High Risk: LDL 160-189 MG/DL Very High Risk: LDL Greater than 189 MG/DL Procedures Date CPT Code Description Status Comment 11/22/2017 65741 ECHO Transthoracic, Real-Time Completed 2D With Doppler And Color Flow 11/22/2017 50567 ECHO Transthoracic, Real-Time Completed 2D With Doppler And Color Flow 11/04/2016 75153 ECHO Transthoracic, Real-Time Completed 2D With Doppler And Color Flow 10/31/2016 38102 Stress Test Completed 10/31/2016 87270 Myocardial Perfusion Imaging Completed Tomographic (Spect) Multiple Studies 10/21/2016 03656 EKG Tracing & Completed Interpretation 12/11/2015 Diabetic Retinal Eye Exam Completed 08/28/2015 Diabetic Retinal Eye Exam Completed 07/23/2015 Diabetic Retinal Eye Exam Completed 09/14/2014 Colonoscopy Completed intestinal undigested food ? abcess, amato'e esophagus 06/09/2014 63500 Spirometry Incl Graphic Record Completed 05/16/2014 Diabetic Retinal Eye Exam Completed 05/15/2014 Diabetic Retinal Eye Exam Completed Document: 05/15/14 - Consult Ophthalmology/[place] 11/18/2013 Diabetic Retinal Eye Exam Completed 11/08/2013 36450 EKG Tracing & Completed Interpretation 11/04/2013 34102 ECHO Transthoracic, Real-Time Completed 2D With Doppler And Color Flow 03/30/2012 89498 Arthroscopy,Knee,Meniscectomy Completed Media & Lateral 03/30/2012 38686 Arthroscopy,Knee,Meniscectomy Completed Media & Lateral 03/16/2012 39057 EKG Tracing & Completed Interpretation 08/14/2007 Colonoscopy Completed Document: 01/19/11 - History Encounters Type Date Location Provider CPT E/M Dx Office Visit 11/28/2017 [facility] Internal Medicine Kvng Yanez, 63136 R10.812 11:40a - Lennie Ruiz,FACP Office Visit 11/08/2017 [facility] Internal Medicine Josse Gomez, 43216 K57.32 9:20a - Lennie Ruiz L30.9 M54.5 Office Visit 10/27/2017 9:40a [facility] Internal Kvng Yanez, 66855 M50.122 Medicine - [place] Alhaji Ruiz,FACP E11.65 I10 Office Visit 10/24/2017 9:00a [facility]surgery [facility] Vassilios 51631 M50.122 Of [facility] MD Denys Office Visit 09/29/2017 9:40a [facility] Internal Medicine Kvng Yanez, 25284 E11.65 - [place] Alhaji Ruiz,FACP M54.12 Office Visit 09/20/2017 10:50a [facility] Internal Ashely Narvaez, CLAY 75981 M54.12 Medicine - [address] [address] Office Visit 08/28/2017 1:10p [facility] Internal Ashely Narvaez, CLAY 52006 S43.422A Medicine - [address] M54.2 Office Visit 06/22/2017 9:40a [facility] Internal Kvng Yanez, 36650 E11.65 Medicine - [place] Alhaji Ruiz,FACP I10 C25.3 Z23 Office Visit 02/27/2017 8:50a [facility] Internal Medicine Kvng Yanez, 07585 C25.3 - [place] Alhaji Ruiz,FACP E11.65 I10 E83.42 Office Visit 11/28/2016 10:30a [facility] Internal Kvng Yanez, 90067 E11.65 Medicine - [place] Alhaji Ruiz,FACP I10 C25.3 Office Visit 11/07/2016 10:00a [place] [facility] Tyree Goodrich, 48007 I25.10 Vicenta Ruiz, [facility] Office Visit 10/21/2016 1:30p [facility] Tyree Goodrich, 04752 I25.10 Vicenta Barraza [place] Sara, [facility], FASNC R94.31 Office Visit 08/29/2016 2:40p [facility] Internal Kvng Yanez, 82526 E11.649 Medicine - [address] Sara,FACP I10 Office Visit 07/01/2016 9:00a [facility] Internal Medicine Kvng Yanez, 81765 C25.3 - [address] Sara,FACP I10 E87.6 E13.9 Office Visit 05/20/2016 9:00a [facility] Internal Kvng Yanez, 34231 E11.649 Medicine - [place] Alhaji Ruiz,FACP E87.6 I10 C25.3 Z23 Office Visit 05/09/2016 8:20a [facility] Internal Medicine - Ronak Villatoro, COMPLIANCE ADMINISTRATOR [address] E87.6 E83.42 I10 Z79.4 Office Visit 05/04/2016 2:46p [facility] Refugio Snow, 57644 E16.2 Assoc,pc [place] Hospitalists E87.8 E13.9 Office Visit 05/03/2016 2:46p [facility] Dinorah Goodwin, 41405 E16.2 Assoc,pc COMPLIANCE ADMINISTRATOR Hospitalists E87.8 E13.9 Office Visit 04/15/2016 1:00p [facility] Internal Josse Gomez M.D. 37182 E78.2 Medicine - [address] C25.3 E11.42 K21.9 Office Visit 01/14/2016 8:00a [facility] Internal Medicine - Christa Lr M.D. 39658 R17 Lennie K86.8 Office Visit 01/05/2016 1:40p [facility] Internal Medicine - Christa Lr M.D. 74029 R17 [place] E11.8 Office Visit 01/01/2016 12:43p [facility],pc Charo Arnett M.D. 10519 R17 Hospitalists I25.10 E11.8 I10 Office Visit 12/31/2015 12:42p [facility],pc Charo Arnett M.D. 82340 R17 Hospitalists I25.10 E11.8 I10 Office Visit 12/30/2015 12:41p [facility],briana Arnett M.D. 82267 R17 Hospitalists I25.10 E11.8 I10 Office Visit 12/29/2015 12:40p [facility], Hermelindo Weller, 85211 R17 Hospitalists N.P. I25.10 E11.8 I10 Office Visit 12/29/2015 10:40a [facility] Internal Medicine Christa Lr M.D. 22897 E11.65 - [place] K52.9 Office Visit 09/10/2015 10:40a [facility] Internal Medicine Christa Lr M.D. 02176 E11.65 - [place] I73.9 J30.9 Office Visit 08/27/2015 10:00a [facility] Internal Medicine Christa Lr M.D. 51185 E11.65 - [place] N29 J20.9 H91.93 Office Visit 05/26/2015 10:40a [facility] Internal Medicine Christa Lr M.D. 11628 E11.65 - [place] Z23 Office Visit 04/07/2015 10:40a [facility] Internal Medicine Christa Lr M.D. 00399 250.02 - [place] Office Visit 03/06/2015 10:40a [facility] Internal Medicine Christa Lr M.D. 31567 250.02 - [place] 729.82 593.9 Office Visit 02/12/2015 9:00a [facility] Internal Medicine Christa Lr M.D. 69576 V70.0 - [place] 272.2 250.00 536.3 729.82 V76.44 250.02 Office Visit 10/28/2014 1:40p [facility] Internal Medicine Christa Lr M.D. 06740 250.00 - [place] 536.3 272.2 V05.3 V03.82 V58.67 Office Visit 07/01/2014 12:40p [facility] Internal Medicine Christa Lr M.D. 33408 250.00 - [place] 493.90 536.3 780.52 Office Visit 06/05/2014 1:00p [facility] Internal Medicine Christa Lr M.D. 43384 272.2 - [place] 250.00 536.3 493.90 v04.81 Office Visit 02/28/2014 9:40a [facility] Internal Medicine Christa Lr M.D. 82570 250.00 - [place] 272.4 V76.44 Office Visit 11/21/2013 8:40a [facility] Internal Medicine Christa Lr M.D. 13812 250.00 - [place] v05.3 917.0 Office Visit 10/29/2013 1:40p [facility] Internal Medicine Christa Lr M.D. 54595 917.0 - [place] 807.00 401.9 250.00 Office Visit 10/22/2013 11:00a [facility] Internal Medicine Christa Lr M.D. 20827 250.02 - [place] 401.9 917.0 v05.3 Office Visit 10/03/2013 11:20a [facility] Internal Medicine Christa Lr M.D. 60625 401.9 - [place] 807.00 300.09 Office Visit 09/17/2013 1:30p [facility] Medicine Gina Razo M.D. 99105 401.9 - [place] 308.3 Office Visit 07/04/2013 11:50a [facility] Internal Medicine Gina Razo, 18138 008.69 - [place] MVenita v04.81 Office Visit 05/28/2013 1:20p [facility] Internal Josse Gomez, 46426 250.02 Medicine - Lennie Ruiz 401.9 272.4 278.00 Office Visit 01/28/2013 9:40a [facility] Internal Josse Gomez, 14358 250.02 Medicine - Lennie Ruiz V76.44 401.9 278.00 272.4 V70.0 Office Visit 12/05/2012 11:40a [facility] Internal Medicine Josse Gomez, 78753 682.9 - Lennie Ruiz 250.02 Office Visit 10/24/2012 9:20a [facility] Internal Josse Gomez, 81402 250.02 Medicine - Lennie Ruiz V76.44 401.9 272.4 278.00 Office Visit 10/12/2012 10:00a [place] [facility] Tyree Goodrich, 45661 414.9 Vicenta Ruiz, [facility] Office Visit 05/07/2012 9:40a [facility] Internal Medicine Elzbieta Gomez, 51700 250.02 Lennie Ruiz 401.9 272.4 278.00 287.5 530.81 Office Visit 04/23/2012 9:40a [facility] Internal Josse oGmez, 86320 V04.81 Medicine Elzbieta Hogue M.D. 285.8 287.5 v04.81 250.02 Office Visit 03/22/2012 9:15a [facility] Gera Thompson, 49077 719.46 C.M.Nelson Ruiz Office Visit 03/16/2012 1:15p [facility] Medicine Nathalie Gooden, 70394 717.3 - [place] N.P. 401.1 272.2 V72.84 250.02 V72.84 Office Visit 03/01/2012 8:30a [facility] Internal Medicine Nathalie Gooden, N.P. 56756 250.02 - [place] 401.9 272.4 278.00 Office Visit 12/21/2011 2:00p [facility] Internal Josse Gomez, 40544 250.02 Thomas Hogue M.D. Office Visit 11/09/2011 2:00p [facility] Internal Josse Gomez, 38318 250.00 Medicine Elzbieta Hogue M.D. Office Visit 10/26/2011 2:00p [facility] Internal Josse Gomez, 61801 250.00 Medicine - Lennie Ruiz 401.9 272.4 530.85 278.00 Office Visit 10/11/2011 10:00a [facility] Gera Thompson M.D. 02923 836.0 C.M.A. Office Visit 10/05/2011 9:40a [facility] Internal Medicine Josse Gomez, [address]58[address] 717.3 - Lennie Ruiz Office Visit 08/25/2011 11:30a [facility] M.D. 45794 836.0 C.M[facility] Office Visit 08/16/2011 1:00p [facility] Internal Medicine Josse Gomez, 57991 717.3 - Lennie Ruiz 722.91 719.41 Office Visit 07/12/2011 11:00a DO Not Use Remote Computer [employer] Operator At [facility], 47990 V04.81 Rimma Ruiz 722.91 719.06 719.41 v04.81 Office Visit 06/28/2011 2:40p DO Not Use [employer] At [facility], 95482 807.00 [facility] M.D. 457.1 Office Visit 06/21/2011 3:00p DO Not Use [employer] Computer [employer] Operator At [facility], 99882 807.00 [facility] M.D. 457.1 719.06 Office Visit 06/07/2011 1:00p DO Not Use [employer] Computer Terminal Operator At [facility], 55537 719.06 [facility] M.D. 466.0 Office Visit 04/20/2011 8:20a DO Not Use Remote Computer Terminal [facility] [address] 401.9 [facility] 250.00 272.4 780.52 278.00 530.81 V70.0 Office Visit 01/19/2011 10:40a DO Not Use Remote Computer [facility] [address] 401.9 [facility] 250.00 272.4 278.00 530.81 722.93 780.52 Plan of Care Future Appointment(s):12/13/2017 8:20 am - Kvng Yanez M.D.,FACP at [facility] Internal Medicine - urg 12/05/2017 11:30 am - Mandy Mcfarlane MD at [facility]01/29/2018 8:40 am - Kvng Yanez M.D.,FACP at [facility]/13/2017 10:45 am - Tyree Goodrich M.D. , FACC, FASNC at [place] [facility]11/28/2017 - Kvng Yanez M.D., FACPR10.812 Left upper quadrant abdominal tendernessNew Labs:Occult Blood Stool DiagnosticComments:Stay hydrated. If not eating, cut out any mealtime insulin and cut Levemir dose in half.If vomiting or bloody diarrhea develops, go to ER.Complete CT scan tomorrow as planned.Continue Oxymorphone twicea day and use [place] for breakthrough pain.
--- OUTSIDE RECORDS SUMMARY | 2017-12-05 20:08 | XMS REPORT ---
:1955 External Reference #:[id number] Author Organization [facility] Address [address] [address] Phone [phone] Care Team Providers Name Role Phone Kvng Yanez MD Primary Care Physician Unavailable Payers Type Date Identification Numbers Payment Provider Subscriber Medicaid Effective: Policy Number: [id number] Medicaid Rojas Weaver 2015 PayID: [id number] [address] [place] [address] Medigap Part B Effective: 2013 Policy Number: [id number] Medicaid Rojas Weaver Expires: 2015 PayID: [id number] [address] [place] [address] Workers Compensation Onset: 2011 Policy Number: Brian Weaver [id number] PayID: [id number] [address] [place] [address] Problems Date Description Provider Status Onset: 04/15/2016 [...] Active Onset: 10/21/2016 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 M.D., Active coronary artery w/o ang pctrs [facility], [facility] Onset: 10/24/2017 Neck pain Mandy Mcfarlane MD [...] Coronary Artery Disease (CAD) Father due to [place] () Mother Diabetes Type II Mother due to Diabetes () - complications Siblings 4 2 now First Brother due to [place] () Second Brother due to [place] () First Sister Fibromyalgia Second Sister Mental Illness NOS Social History Type Date Description Comments Marital Status Lives With Alone 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 timses a day/no alcohol until 5 days after you are done. Hydroxyzine HCL Active Tablets 10mg 60tabs 1-2 tabs L30.9 Josse 018 8 hourly/ Pachikara, No M.D. driving after taking med Amitriptyline Active Tablets 10mg 60tabs 1 by Kvng HCL 018 mouth Tala Yanez, twice a M.D.,FACP day for 10 days then 2 bid Oxymorphone HCL Active Tablets 7.5mg 60tabs 1 po bid M54.12 Kvng ER 018 ER 12HR Tala Yanez M.D.,FACP M54.2 Farxiga 09/29/2017 Active Tablets 10mg 30tabs 1 by mouth Kvng Edgar every day Sara Yanez,FACP [place] 09/20/2017 Active Tablets 10-325m 120tabs one tab 4 M54 Ashely g times/day .12 Narvaez, LADLE BUILDER as needed for pain Spironolactone 06/22/2017 Active Tablets 25-25mg 90tabs 1 by mouth I10 Ashely /Hydrochloroth every Narvaez, LADLE BUILDER iazide morning BD Insulin 04/25/2017 Active Misc 29G X 150units use up to E11 Jed Edgar Syringe /2" 1 five times .65 [place], Safetyglide/1M ML daily as M.D.,FACP L/29G X 1/2" directed Humalog 02/27/2017 Active Solution 100Unit 15ml inject 10 u vKng Edgar Kwikpen Pen-Inject /ML Am, 10u Wil[place], lunch, 12u M.D.,FACP dinner, and as needed, max 40 unit/day (clarificat ion) Magnesium 02/27/2017 Active Tablets 400mg 60tabs 1 by mouth Kvng Edgar Oxide twice a day Sara Yanez,FACP Amlodipine 11/28/2016 Active Tablets 2.5mg 90tabs 1 by mouth Jed Edgar Besylate every day Sara Yanez,FACP Simvastatin 11/28/2016 Active Tablets 40mg 90tabs take one Kvng Edgar tablet by Renata, mouth at M.D.,FACP bedtime Levemir 04/25/2016 Active Solution 100Unit 45ml 50 units in E11 Jed Edgar Flextouch Pen-Inject /ML the in the .42 [place], morning M.D.,FACP & inject 45 units daily at bedtime E11.65 Fluticasone 09/10/2015 Active Suspension 50mcg/Act 1units 2 sprays J30.9 Christa Propionate each Be, nostril M.D. everyday prn Lisinopril 10/29/2013 Active Tablets 40mg 90tabs Take One E11.65 Clay- Dana Tablet By l Tala Mouth Renata, Every Day M.D.,FAC P Omeprazole 05/07/[address] 20mg 90caps 1 by K21.9 Christa mouth Be, every day M.D. Metoprolol 11/30/2011 Active Tablets 25mg 270tabs Take One Clay-Dana Tartrate And A l Tala Half [place], Tablets M.D.,FAC By Mouth P Two Times A Day Freestyle 05/24/2011 Active 100units use as E11.65 Ronak Lite Test directed Dutch, Strip three LADLE BUILDER times a day or as needed dx: e11.65 BD Pen 01/25/2011 Active Misc 29G X 150units use as E11.65 Clay-Dana Needle/Ultraf 12.7mm directed l Tala ine/29G X with [place], 12.7mm novolog M.D.,FAC and P levimir Aspirin Ec Active Tablets DR 81mg 90tabs 1 tablet E11.65 Unknown Lo-Dose daily. Bethanechol Active Tablets 25mg 120tabs take one Den Chloride tablet by l DJagruti mouth Wilton, four M.D.,FAC times a P day Metformin HCL Active Tablets 1000mg 180tabs take one E11.42 Clay-Dana tablet by l DJagruti mouth Wilton, twice a M.D.,FAC day P E11.65 Creon Active Caps [id number] 270caps Take 1 To Kvng Part 3 Capsules Tala Yanez, By Mouth 5 M.D.,FACP Minutes Before A Meal Ciprofloxacin 11/08/2017 - Hx Tablets 500mg 20tabs twice a K5 [place] HCL 11/21/2017 day 7. Pachika, 32 M.D. Medrol 09/07/2017 - Hx Tablets 4mg 1pak medrol S4 Kvng 09/15/2017 dosepack 3. Tala Yanez, as 42 M.D.,FACP directed 2A M54.2 Diclofenac Sodium 08/28/[address] 75mg 40tabs take 1 S43.422A Ashely - tablet twice Narvaez, 09/11/2017 a day with LADLE BUILDER food [place] 08/28/2017 Hx Tablets 5-325 30tabs 1 tabs three S43.422A Ashely - mg times a day Narvaez, 09/20/2017 as needed LADLE BUILDER pain Marijuana Oil 06/22/2017 Hx 2 puffs Kvng (Dab) - before each Tala Yanez, 09/20/2017 meal, Sara,FACP vaporized Jardiance 11/28/2016 Hx Tablets 10mg 30tabs 1 by mouth Kvng - every night Tala Yanez, 02/27/2017 Sara,FACP Humalog Kwikpen 08/29/2016 Hx Solution 100Un 15ml [...] by mouth E83.42 Ronak - twice day CLAY Villatoro 07/01/2016 Spironolactone 05/09/2016 Hx Tablets 25mg 30tabs Take One I10 Kvng - Tablet By Tala Yanez, 06/22/2017 Mouth Every M.DJagruti,FACP Day Simvastatin 05/04/2016 Hx Tablets 80mg 90tabs take one Josse - tablet by Jason, 11/28/2016 mouth at M.D. bedtime Humalog Kwikpen 04/25/2016 Hx Solution 100Un 15ml BS 0-150 no E11.42 Josse - Pen-Inject it/ML units, Jason, 05/04/2016 151-200=2 M.D. units, 201-250=4 units, 251-300=6 units, 301-350=8 units > 351 call MD Domingo-Alvino M10 01/05/2016 Hx Tablets ER 10Meq 30tabs 1 by mouth E87.6 Christa - every day Be, 07/01/2016 MVenita Humulin 70/30 12/29/2015 Hx Suspension [...] 30tabs 2 tab po Christa - everyday Be 12/29/2015 M.D. Humulin N 70/30 02/16/2015 Hx Supn 100Un Take 10 Adryan Kwikpen - it/ML units sc in [place], LADLE BUILDER 02/16/2015 the morning and 10 units sc every evening Humulin 7030 02/16/2015 Hx Supn (70-3 6units 15 units [...] tab by 780.52 Christa - mouth at Lr, 10/28/2014 bedtime as M.D. needed Nitrostat 07/01/2014 [...] NDL 05/13/2014 Hx 150unit use as Kvng 12.7CES17C - s francis Yanez, 04/25/2017 with novolog M.D.,FACP and levemir- onlys uses levemir Penicillin V 11/07/2013 Hx Tablets 250mg 30tabs 1 po tid Christa Potassium - Be, 11/21/2013 M.DJagruti Silvadene 10/22/2013 Hx Cream 1% 400gm topical [...] tab 008.69 Gina - by mouth q Dung, 10/03/2013 8h prn as M.D. needed for nausea Doxycycline 12/05/[address] 100mg 20tabs 1 po bid 682.9 Josse Hyclate - Pachikara, 12/05/2012 M.DJagruti Doxycycline 12/05/2012 Hx Capsules 100mg 20caps bid po [place] Hyclate - Pachikara, 01/28/2013 M.DJagruti Keflex 04/20/2012 Hx Capsules 500mg 28caps 1 po 4 times Gera - per day Donna, 05/07/2012 M.DJagruti Lisinopril 12/06/2011 Hx Tablets 10mg 90tabs 1 po qd Josse - Pachika, 03/01/2012 M.DJagruti Levemir Flexpen 10/26/2011 Hx Solution 100Un 30units Inject 45 Lucho E. - Pen-Inject it/ML Units Every Le, 04/25/2016 Morning And M.DJagruti 50 Units In The Evening Hydrochlorothiazi 10/05/2011 Hx Tablets 25mg 90tabs 1 po qd Josse de - Pachikara, 10/14/2011 M.DJagruti Naprosyn 08/25/2011 Hx Tablets 500mg 40tabs twice daily Gera - with food x Donna, 10/05/2011 5 days, then M.D. qD prn Furosemide 06/21/2011 Hx Tablets 40mg 30tabs po qam 457.1 [place] - Jason, 10/05/2011 M.D. Potassium 06/21/2011 Hx Tablets ER 20Meq 30tabs take 1 tab 457.1 [place] Chloride ER - by mouth Pachikara, 10/05/2011 daily M.D. Naproxen 06/07/[address] 375mg 30tabs bid 719.06 Josse Gomez, 07/12/2011 M.D. Zithromax Z-Isaac 06/07/2011 Hx Tablets 250mg 1tabs 2tab today 466.0 [place] - and 1tab Vikasikara, 06/21/2011 daily x M.D. 4days Accu-Chek Comfort 05/23/2011 Hx Strips 120unit qid and prn 250.00 Josse Curve Test Strips - s Jason, 03/01/2012 M.DJagruti Levemir Flexpen 04/20/2011 Hx Solution 100Un 5Vials 40 am 45 pm 250.00 Josse - it/ML Pachikara, 10/26/2011 M.DJagruti Novolog Flexpen 04/20/2011 Hx Solution 100Un 2units Inject 12 250.00 Christa - Pen-Inject it/ML Units Under Lr, 07/01/2014 The Skin M.D. Before Every Meal Benadryl Allergy 04/13/2011 Hx Capsules 25mg 60caps 2- 4 tabs Josse - for Pachikara, 04/13/2011 allergies M.D. Zolpidem Tartrate 01/19/2011 Hx Tablets 10mg 30tabs 1/2 to 1 tab 780.52 [place] - po qhs prn Pachikara, 04/20/2011 M.D. Nucynta Hx Tablets 100mg 60tabs 1 po q 6hrs Unknown - 06/21/2011 Oxycontin Hx Tablets ER 40mg 60tabs 1 po bid Unknown - 12HR 10/28/2014 Hydrochlorothiazi Hx Capsules 12.5m 90caps 1 po qd Unknown de - g 01/19/2011 Metoprolol Hx Tablets ER 25mg 180tabs 1 po bid Josse Gomez, 11/30/2011 M.D. Aspirin Hx Tablets DR 325mg 1 po qd Unknown - 12/21/2011 Famotidine Hx Tablets 40mg 90tabs 1 po qd Josse Gomez, 05/07/2012 M.D. Plavix Hx Tablets 75mg 90tabs 1 po qd Josse Gomez, 03/16/2012 M.D. Lisinopril Hx Tablets 10mg 45tabs 1/2 tab qd Josse - guillermina Gomez, 12/06/2011 M.D. Levemir Flexpen Hx Solution 100Un 5Vials 40 units [place] - it/ML q12h [facility], 04/20/2011 M.D. Novolog Flexpen Hx Solution 100Un 1Box 10units subq Josse - it/ML before every Vikasika, 04/20/2011 meal M.D. Percocet Hx Tablets 10-32 60tabs 1 po qid prn Josse - 5mg Jason, 10/05/2011 M.D. Hydrochlorothiazi Hx Capsules 12.5m 30caps 1 po qd Josse Ortiz, 09/17/2013 M.D. Nucynta Hx Tablets 100mg 2-4 daily Unknown - 10/28/2014 Lisinopril Hx Tablets 20mg 90tabs Take One Josse - Tablet By Jason, 10/29/2013 Mouth Every M.D. Day Zyrtec Allergy Hx Tablets 10mg 30tabs 1 po qd prn Unknown - 07/01/2014 Simvastatin Hx Tablets 80mg 90tabs Take One [place] - Tablet By Jason, 04/15/2016 Mouth At [...] Inj, Administered Injection Tyree Caraballo Regadenoson, 017 Kp 0.1 MG Sara, [facility], [facility] Technetium TC Administered Injection Tyree Caraballo 99M 017 Kp TetrofosminSara, [facility], Per Unit Dose [facility] Up To 40 Millicuries Immunizations CPT Code Status Date Vaccine Lot # [id number] Given 06/22/2017 Influenza Virus Vaccine, Quadrivalent, Split, [id number] Preservative Free 85753 Given 05/20/2016 Influenza Virus Vaccine, Quadrivalent, Split, [id number] Preservative Free 00186 Given 05/26/2015 Influenza Virus Vaccine, Quadrivalent, Split, [id number] Preservative Free 74309 Given 10/28/2014 Hepatitis B Vaccine Adult Dosage [id number] 64116 Given 10/28/2014 Pneumococcal Conjugate Vaccine 13 Valent For [id number] Intramuscular Use 44422 Given 06/05/2014 Flu Vaccine Split Virus Preservative Free For [id number] Indiv 3Yr Older 89879 Given 11/21/2013 Hepatitis B Vaccine Adult Dosage [id number] 69211 Given 10/22/2013 Hepatitis B Vaccine Adult Dosage [id number] 16964 Given 07/04/2013 Flu Vaccine Split Virus Preservative Free For [id number] Indiv 3Yr Older 21974 Given 04/23/2012 Influenza Virus 3Yrs & Over 93824 Given 07/12/2011 Influenza Virus 3Yrs & Over 99987 Given 07/12/2011 Influenza Virus 3Yrs & Over [id number] 87422 Given 08/14/2006 Tdap - Tetanus/Diptheria/Acellular Pertussis Vital Signs Date Vital Result Comment 11/21/2017 Height 75 inches 6'3" Weight 274.00 [...] of Care Glucose 115 mg/dL High 74-106 31 finding Laboratory test 04/15/2016 Hemoglobin A1c 7.5 [...] finding 01/09/2016 Lactic Acid 1.4 mmol/L 0.5-2.0 32 Comp Metabolic Panel 01/09/2016 Sodium 135 mmol/L [...] Egfr Non- 61.6 >60 Egfr 79.2 >60 33 Laboratory test finding 01/09/2016 Magnesium 1.4 mg/dL [...] mg/dL Urine Microalbumin/Creatinine 592.2 ug/mg High <31 Laboratory test 01/26/2015 Hemoglobin A1c 11.7 % High Less than 6.0 37 finding (Glyco HGB) Comp Metabolic Panel 01/26/2015 Sodium 137 mmol/L [...] Egfr Non- 74.5 >60 Egfr 95.8 >60 38 Lipid Profile (Trig/Chol/HDL) 01/26/2015 Triglycerides 64 mg/dL 39 Cholesterol 97 mg/dL 40 HDL Cholesterol 41.7 mg/dL 41 LDL Cholesterol 43 mg/dL 42 Laboratory test 10/28/2014 Hemoglobin A1c 8.9 High 5-7 finding Laboratory test 06/05/2014 Hemoglobin A1c 7.5 High 5-7 finding Laboratory test 02/24/2014 Hemoglobin A1c 7.7 % High Less than 43, 44 finding 6.0 Urine Microalbumin 02/24/2014 Ur Microalbumin 191.0 mg/dL <30 43, 45 Random (mg/L) Urine Creatinine 164.49 mg/dL 43 Urine Microalbumin/Creatinine 116.1 High Less Than 31 43 Lipid Profile (Trig/Chol/HDL) 02/24/2014 Triglycerides 87 mg/dL 43, 46 Cholesterol 100 mg/dL 43, 47 HDL Cholesterol 40.2 mg/dL 43, 48 LDL Cholesterol 42 mg/dL 43, 49 Laboratory test finding 11/21/2013 Hemoglobin A1c 7.7 [...] test 01/22/2013 Lyme Disease Serology Negative Negative 53 finding Lipid Profile 01/22/2013 Triglycerides 65 mg/dL 40-200 (Trig/Chol/HDL) Cholesterol 108 mg/dL Less than 200 HDL Cholesterol 40 mg/dL 40-60 54 Cholesterol/HDL Ratio 2.7 Average 1-4.44 LDL Cholesterol 55.0 Less Than 100 55 Comp Metabolic Panel 01/22/2013 Sodium 139 mmol/L [...] Egfr Non- 68.8 >60 Egfr 88.4 >60 56 Urine Microalbumin Random 01/22/2013 Ur Microalbumin (mg/L) 548.0 mg/L 57 Urine Creatinine 175.5 mg/dL Urine Microalbumin/Creatinine 312.3 [...] test finding 10/24/2012 Hemoglobin A1c 7.0 5-7 Laboratory test finding 09/11/2012 Platelet Count, 133 cumm Low 150-450 Citrated Oncology CBC Auto Diff 09/11/2012 White Blood [...] 0-6 Basophil % 4.1 % High 0-2 Liver Function Panel 06/01/2012 Total Protein 5.8 [...] Folic Acid 23.9 NG/ML See Below 65 CBC No Diff 03/30/2012 White Blood Count [...] mmol/L 22-32 Anion Gap 6.0 mmol/L 2-11 66 Glucose 151 mg/dL High 70-100 BUN 21 mg/dL 6-24 Creatinine 1.0 mg/dL 0.50-1.40 One Over Creatinine 1.00 BUN/Creatinine Ratio 21.0 High 8-20 Calcium 9.1 mg/dL 8.1-9.9 eGFR Non- 77.0 > 60 eGFR 99.0 > 60 67 Protime 03/30/2012 Inr 0.87 Low 0.88-1.13 68 Protime 10.3 SEC 10.3-13.5 69 Laboratory test finding 03/30/2012 PTT (Aptt) 25.4 SEC 25.1-38.5 Laboratory test finding 03/20/2012 Ferritin 59 NG/ML 24-336 Vitamin B12 211 pg/mL 180-914 Folic Acid 15.3 NG/ML See Below 70 Retic Count 03/20/2012 Reticulocyte Count 1.32 % [...] mmol/L 22-32 Anion Gap 7.0 mmol/L 2-11 71 Glucose 111 mg/dL High 70-100 BUN 23 mg/dL 6-24 Creatinine 1.1 mg/dL 0.50-1.40 One Over Creatinine 0.90 BUN/Creatinine Ratio 20.9 High 8-20 Calcium 8.7 mg/dL 8.1-9.9 eGFR Non- 69.0 > 60 eGFR 88.7 > 60 72 CBC With Manual Diff 03/20/2012 White Blood [...] % 0-6 Anisocytosis SLIGHT Laboratory test finding 03/01/2012 Hemoglobin A1c 7.5 High 5-7 Urine Microalbumin Random 03/01/2012 Microalbumin (MG/L) 247.0 mg/L Urine Creatinine 117.3 mg/dL Nazario Alb/Creatinine Ratio 210.6 UG/MG High Less Than 30 73 Basic Metabolic Panel 02/03/2012 Sodium 136 mmol/L 135-145 Potassium 4.8 mmol/L 3.5-5.0 Chloride 101 mmol/L 101-111 Co2 (Carbon Dioxide) 29.0 mmol/L 22-32 Anion Gap 6.0 mmol/L 2-11 74 Glucose 307 mg/dL High 70-100 BUN 20 mg/dL 6-24 Creatinine 1.2 mg/dL 0.50-1.40 One Over Creatinine 0.83 BUN/Creatinine Ratio 16.7 8-20 Calcium 8.8 mg/dL 8.1-9.9 eGFR Non- 62.4 > 60 eGFR 80.3 > 60 75 Protime 02/01/2012 Inr 0.87 Low 0.88-1.13 76 [...] finding 02/01/2012 Troponin-I 0 NG/ML 0-0.06 81 CBC Auto Diff 02/01/2012 White Blood Count [...] in selective patients <6.0%. Please refer to [employer] diabetic care guidelines for further information. 3 FASTING 10 HOUR 4 Therapeutic target for the treatment of diabetes Mellitus patients is <7% HBA1C, and in selective patients <6.0%.Please refer to [employer] Diabetic care guidelines for further [...] 5 Kidney failure <15 (or dialysis) 10 Nuclear Pharmacist: [id number] YISEL NÚÑEZ 11 Nuclear Pharmacist: [id number] YISEL NÚÑEZ 12 Nuclear Pharmacist: [id number] YISEL LEEIE 13 Because ethnic data is not always [...] 0.03 ng/mL Not supportive of diagnosis of [place] 0.03 - 0.50 ng/mL Indeterminate: suggest serial studies if clinically indicated. Greater than 0.5 ng/mL Consistent with diagnosis of [place] 24 Critical Result M.9 Called to [id number] at: 13:12:04 by:[id number] Read back by:[id number] 25 Therapeutic target for the treatment of diabetes Mellitus patients is <7% HBA1C, and in selective patients <6.0%.Please refer to [employer] Diabetic care guidelines for further information. 26 Critical Result LACT:2.2 Called to [id number] at: 22:27:22 by:[id number] Read back by:[id number] [facility] Severe Sepsis and Septic Shock Management [...] 0.03 ng/mL Not supportive of diagnosis of [place] 0.03 - 0.50 ng/mL Indeterminate: suggest serial studies if clinically indicated. Greater than 0.5 ng/mL Consistent with diagnosis of [place] 31 Nuclear Pharmacist: [id number] AMY SANCHEZ [address] [facility] Severe Sepsis and Septic Shock Management Bundle Measure requires all lactic acids initially measuring >2.0 mmol/L be repeated. 33 Because ethnic data is not always readily [...] 15-29 5 Kidney failure <15 (or dialysis) 34 Because ethnic data is not always [...] Serum levels of PSA measured using the [employer] DXI Hybritech immunoassay should not be interpreted [...] or kits cannot be used interchangeably. 37 Therapeutic target for the treatment of diabetes Mellitus patients is <7% HBA1C, and in selective patients <6.0%.Please refer to [employer] Diabetic care guidelines for further information. 38 Because ethnic data is not always readily [...] 15-29 5 Kidney failure <15 (or dialysis) 39 Desirable <150 Borderline high 150-199 High 200-499 Very High >500 40 Desirable <200 Borderline high 200-239 High >239 41 Low <40 Desirable: 40-60 High: >60 42 Desirable: <100 mg/dL Near Optimal: 100-129 mg/dL Borderline High: 130-159 mg/dL High: 160-189 mg/dL Very High: >189 mg/dL 43 FASTING 12 HOUR 44 Therapeutic target for the treatment of diabetes Mellitus patients is <7% HBA1C, and in selective patients <6.0%.Please refer to [employer] Diabetic care guidelines for further information. 45 Microalbuminuria in a random sample is defined as: Microalbumin/Creatinine ratio of 30-299 ug/mg. 46 Desirable <150 Borderline high 150-199 High 200-499 Very High >500 47 Desirable <200 Borderline high 200-239 High >239 48 Low <40 Desirable: 40-60 High: >60 49 Desirable <100 Near Optimal 100-129 Borderline high 130-159 High 160-189 Very High >189 50 Because ethnic data is not always [...] 0.06 ng/mL Not supportive of diagnosis of [place] 0.06 - 0.50 ng/mL Indeterminate: suggest serial studies if clinically indicated. Greater than 0.5 ng/mL Consistent with diagnosis of [place] 52 Test Performed by: [place] [address] Anesthesia Resident: John Cash III, M.D. 53 Serologic response to B. burgdorferi infection is not detected, but cannot rule out early infection during which low or undetectable antibody levels to B. burgdorferi may be present. If clinically indicated, a new serum specimen should be submitted in 7-14 days. Test Performed by: [address] [address] Anesthesia Resident: John Cash III, M.D. 54 HDL Interpretation: Undesirable: High Risk: Less than 40 mg/dL Desirable: Low Risk: Greater than 60 mg/dL 55 LDL Interpretation: Low Risk Optimal Level: LDL Less than 100 mg/dL Near or Above Optimal: LDL 100-129 mg/dL Borderline High Risk: LDL 130-159 mg/dL High Risk: LDL 160-189 mg/dL Very High Risk: LDL Greater than 189 mg/dL 56 Because ethnic data is not always readily [...] 15-29 5 Kidney failure <15 (or dialysis) 57 Microalbuminuria in a random sample is defined as: Microalbumin/Creatinine ratio of 30-299 ug/mg. 58 A metabolite of Naproxen, O-desmethylnaproxen, has been shown to interfere with the Jendrassik-Bajandas method for measuring total bilirubin. Samples from patients who have taken Naproxen have shown spurious elevation in total bilirubin levels. 59 Normal serum electrophoretic pattern. 60 Normal serum immunofixation electrophoretic pattern. No monoclonal protein detected. 61 @Sample frozen by [id number] at 2041 on 06/01/12. 62 The World [...] the CDC guidelines. 63 @Sample frozen by [id number] at 2041 on 06/01/12. 64 @Sample frozen by [id number] at 2041 on 06/01/12. 65 Please note: New reference range, effective 08/04/11 NORMAL REFERENCE RANGE: GREATER THAN 4.1 NG/ML 66 Anion gap measurement may be of limited value in the presence of any alkalosis, especially in a combined acid base disorder. . 67 Because ethnic data is not always readily [...] 15-29 5 Kidney failure <15 (or dialysis) 68 Recommended INR for Patients on Oral Anticoagulants Prophylaxis 2.0 - 3.0 Treatment of thrombosis 2.0 - 3.0 Prevention of embolism 2.0 - 3.0 Prevention of embolism from prosthetic heart valves 2.5 - 3.5 69 DIAGNOSIS,TREATMENT,AND THERAPY MUST BE BASED ON THE INR VALUE ALONE. 70 Please note: New reference range, effective 08/04/11 NORMAL REFERENCE RANGE: GREATER THAN 4.1 NG/ML 71 Anion gap measurement may be of limited value in the presence of any alkalosis, especially in a combined acid base disorder. . 72 Because ethnic data is not always readily [...] 15-29 5 Kidney failure <15 (or dialysis) 73 MICROALBUMINURIA IN A RANDOM SAMPLE IS [...] 0.06 ng/mL NOT SUPPORTIVE OF DIAGNOSIS OF [place] 0.06 - 0.50 ng/ml INDETERMINATE: SUGGEST SERIAL STUDIES IF CLINICALLY INDICATED. Greater than 0.5 ng/mL CONSISTENT WITH DIAGNOSIS OF [place] . 82 Anion gap measurement may be [...] Date CPT Code Description Status Comment 11/04/2016 73512 ECHO Transthoracic, Real-Time Completed 2D With Doppler And Color Flow 10/31/2016 08492 Stress Test Completed 10/31/2016 15818 Myocardial Perfusion Imaging Completed Tomographic (Spect) Multiple Studies 10/21/2016 02628 EKG Tracing & Completed Interpretation 12/11/2015 Diabetic Retinal Eye Exam Completed 08/28/2015 Diabetic Retinal Eye Exam Completed 07/23/2015 Diabetic Retinal Eye Exam Completed 09/14/2014 Colonoscopy Completed intestinal undigested food ? abcess, amato'e esophagus 06/09/2014 51850 Spirometry Incl Graphic Record Completed 05/16/2014 Diabetic Retinal Eye Exam Completed 05/15/2014 Diabetic Retinal Eye Exam Completed Document: 05/15/14 - Consult Ophthalmology/[place] 11/18/2013 Diabetic Retinal Eye Exam Completed 11/08/2013 60833 EKG Tracing & Completed Interpretation 11/04/2013 54336 ECHO Transthoracic, Real-Time Completed 2D With Doppler And Color Flow 03/30/2012 55681 Arthroscopy,Knee,Meniscectomy Completed Media & Lateral 03/30/2012 79062 Arthroscopy,Knee,Meniscectomy Completed Media & Lateral 03/16/2012 34452 EKG Tracing & Completed Interpretation 08/14/2007 Colonoscopy Completed Document: 01/19/11 - History Encounters Type Date Location Provider CPT E/M Dx Office Visit 11/08/2017 [facility] Internal Medicine Josse Gomez, 89272 K57.32 9:20a - Lennie Ruiz L30.9 M54.5 Office Visit 10/27/2017 9:40a [facility] Internal Kvng Yanez, 89332 M50.122 Medicine - [place]haji Ruiz,FACP E11.65 I10 Office Visit 10/24/2017 9:00a Neurosurgery Services Vassilios [address]756 M50.122 Of [facility] MD Denys Office Visit 09/29/2017 9:40a [facility] Internal Medicine Knvg Yanez, [address]85 E11.65 - [address] M.D.,FACP M54.12 Office Visit 09/20/2017 10:50a [facility] Internal Ashely Solange, LADLE BUILDER [address]97 M54.12 Medicine - [address] Office Visit 08/28/2017 1:10p [facility] Internal Ashely Narvaez, LADLE BUILDER [address]2503 S43.422A Medicine - [address] M54.2 Office Visit 06/22/2017 9:40a [facility] Internal Kvng Yanez, 41105 E11.65 Medicine - [address] M.D.,FACP I10 C25.3 Z23 Office Visit 02/27/2017 8:50a [facility] Internal Medicine Kvng Yanez, [address]50 C25.3 - [address] M.DJagruti,FACP E11.65 I10 E83.42 Office Visit 11/28/2016 10:30a [facility] Internal Kvng Yanez, 43216 E11.65 Medicine - [address] M.DJagruti,FACP I10 C25.3 Office Visit 11/07/2016 10:00a [facility] Tyree Goodrich, 98593 I25.10 [facility] Sara, [facility], FASNC Office Visit 10/21/2016 1:30p [facility]iology Services Of Tyree Goodrich, 55118 I25.10 [facility] Madi [place] Sara, FAC, FASNC R94.31 Office Visit 08/29/2016 2:40p [facility] Internal Kvng Yanez, 05779 E11.649 Medicine - [address] M.D.,FACP I10 Office Visit 07/01/2016 9:00a [facility] Internal Medicine Kvng Yanez, [address] C25.[address] M.DJagruti,FACP I10 E87.6 E13.9 Office Visit 05/20/2016 9:00a [facility] Internal Kvng Yanez, 37736 E11.649 Medicine - [address] M.DJagruti,FACP E87.6 I10 C25.3 Z23 Office Visit 05/09/2016 8:20a [facility] Internal Medicine Elzbieta Villatoro, [employer]LE [employer]DER [address] E87.6 E83.42 I10 Z79.4 Office Visit 05/04/2016 2:46p [facility] Refugio Snow, 34397 E16.2 Assoc,pc PA Hospitalists E87.8 E13.9 Office Visit 05/03/2016 2:46p [facility] Dinorah Goodwin, 16049 E16.2 Assoc,pc [employer] Hospitalists E87.8 E13.9 Office Visit 04/15/2016 1:00p [facility] Internal Josse Gomez M.D. 66704 E78.2 Medicine - [address] C25.3 E11.42 K21.9 Office Visit 01/14/2016 8:00a [facility] Internal Medicine - Christa Lr M.D. 74746 R17 [place] K86.8 Office Visit 01/05/2016 1:40p [facility] Internal Medicine - Christa Lr M.D. 36083 R17 [place] E11.8 Office Visit 01/01/2016 12:43p [facility], Charo Arnett M.D. 45070 R17 Hospitalists I25.10 E11.8 I10 Office Visit 12/31/2015 12:42p [facility], Charo Arnett M.D. 78026 R17 Hospitalists I25.10 E11.8 I10 Office Visit 12/30/2015 12:41p [facility], Charo Arnett M.D. 75262 R17 Hospitalists I25.10 E11.8 I10 Office Visit 12/29/2015 12:40p [facility], Hermelindo Weller, 55356 R17 Hospitalists N.P. I25.10 E11.8 I10 Office Visit 12/29/2015 10:40a [facility] Internal Medicine Christa Lr M.D. 65634 E11.65 - [place] K52.9 Office Visit 09/10/2015 10:40a [facility] Internal Medicine Christa Lr M.D. 94483 E11.65 - [place] I73.9 J30.9 Office Visit 08/27/2015 10:00a [facility] Internal Medicine Christa Lr M.D. 97005 E11.65 - [place] N29 J20.9 H91.93 Office Visit 05/26/2015 10:40a [facility] Internal Medicine Christa Lr M.D. 68103 E11.65 - [place] Z23 Office Visit 04/07/2015 10:40a [facility] Internal Medicine Christa Lr M.D. 05857 250.02 - [place] Office Visit 03/06/2015 10:40a [facility] Internal Medicine Christa Lr M.D. 97444 250.02 - [place] 729.82 593.9 Office Visit 02/12/2015 9:00a [facility] Internal Medicine Christa Lr M.D. 53933 V70.0 - [place] 272.2 250.00 536.3 729.82 V76.44 250.02 Office Visit 10/28/2014 1:40p [facility] Internal Medicine Christa Lr M.D. 40950 250.00 - [place] 536.3 272.2 V05.3 V03.82 V58.67 Office Visit 07/01/2014 12:40p [facility] Internal Medicine Christa Lr M.D. 74327 250.00 - [place] 493.90 536.3 780.52 Office Visit 06/05/2014 1:00p [facility] Internal Medicine Christa Lr M.D. 75443 272.2 - [place] 250.00 536.3 493.90 v04.81 Office Visit 02/28/2014 9:40a [facility] Internal Medicine Christa Lr M.D. 59682 250.00 - [place] 272.4 V76.44 Office Visit 11/21/2013 8:40a [facility] Internal Medicine Christa Lr M.D. 50035 250.00 - [place] v05.3 917.0 Office Visit 10/29/2013 1:40p [facility] Internal Medicine Christa Lr M.D. 01569 917.0 - [place] 807.00 401.9 250.00 Office Visit 10/22/2013 11:00a [facility] Internal Medicine Christa Lr M.D. 06558 250.02 - [place] 401.9 917.0 v05.3 Office Visit 10/03/2013 11:20a [facility] Internal Medicine Christa Lr M.D. 27247 401.9 - [place] 807.00 300.09 Office Visit 09/17/2013 1:30p [facility] Internal Medicine Gina Razo M.D. 91063 401.9 - [place] 308.3 Office Visit 07/04/2013 11:50a [facility] Internal Medicine Gina Razo, 09923 008.69 - [place] v04.81 Office Visit 05/28/2013 1:20p [facility] Internal Josse Gomez, 37858 250.02 Medicine - Lennie Ruiz 401.9 272.4 278.00 Office Visit 01/28/2013 9:40a [facility] Internal Josse Gomez, 62177 250.02 Medicine - Lennie Ruiz V76.44 401.9 278.00 272.4 V70.0 Office Visit 12/05/2012 11:40a [facility] Internal Medicine Josse Gomez, 46600 682.9 - Lennie Ruiz 250.02 Office Visit 10/24/2012 9:20a [facility] Internal Josse Gomez, 96080 250.02 Medicine - Lennie Ruiz V76.44 401.9 272.4 278.00 Office Visit 10/12/2012 10:00a [facility] Tyree Goodrich, 01884 414.9 Vicenta Ruiz, [facility] Office Visit 05/07/2012 9:40a [facility] Internal Medicine Elzbieta Gomez, 65997 250.02 Lennie Ruiz 401.9 272.4 278.00 287.5 530.81 Office Visit 04/23/2012 9:40a [facility] Internal Josse Gomez, 78323 V04.81 Medicine - Lennie Ruiz 285.8 287.5 v04.81 250.02 Office Visit 03/22/2012 9:15a [facility], 10501 719.46 C.M.AJagruti Ruiz Office Visit 03/16/2012 1:15p [facility] Internal Medicine Nathalie Gooden, 54106 717.3 - [place] N.P. 401.1 272.2 V72.84 250.02 V72.84 Office Visit 03/01/2012 8:30a [facility] Internal Medicine Nathalie Gooden, N.P. 59196 250.02 - [place] 401.9 272.4 278.00 Office Visit 12/21/2011 2:00p [facility] Internal H[place]t [place], 43977 250.02 Medicine - [place] M.D. Office Visit 11/09/2011 2:00p [facility] Internal [place], 85250 250.00 Medicine - [place] M.D. Office Visit 10/26/2011 2:00p [facility] 50247 250.00 Medicine - [place] M.D. 401.9 272.4 530.85 278.00 Office Visit 10/11/2011 10:00a [facility] M.D. 95018 836.0 C.M.A. Office Visit 10/05/2011 9:40a [facility] Internal Medicine Josse Gomez, 30740 717.3 - Lennie Ruiz Office Visit 08/25/2011 11:30a [facility] M.D. 71626 836.0 C.M.A. Office Visit 08/16/2011 1:00p [facility] Internal Medicine H[place]t [place], 63295 717.3 - Lennie Ruiz 722.91 719.41 Office Visit 07/12/2011 11:00a DO Not Use [facility], 15009 V04.81 Rimma Ruiz 722.91 719.06 719.41 v04.81 Office Visit 06/28/2011 2:40p DO Not Use [facility], 08975 807.00 Rimma Ruiz 457.1 Office Visit 06/21/2011 3:00p DO Not Use [facility], 56564 807.00 Rimma Ruiz 457.1 719.06 Office Visit 06/07/2011 1:00p DO Not Use [facility], 80962 719.06 Rimma Ruiz 466.0 Office Visit 04/20/2011 8:20a DO Not Use [facility] At Josse Gomez M.D. 91205 401.9 [place] 250.00 272.4 780.52 278.00 530.81 V70.0 Office Visit 01/19/2011 10:40a DO Not Use Search Analyst At Josse Gomez M.D. 10205 401.9 [place] 250.00 272.4 278.00 530.81 722.93 780.52 Plan of Care Future Appointment(s):12/05/2017 11:30 am - Mandy Mcfarlane MD at [facility]11/22/2017 11:00 am - Traveling ECHO Schedule at [facility]11/28/2017 11:40 am - Kvng Yanez M.D.,FACP at [facility] Internal Medicine - [place]ke20/18/2018 8:40 am - Kvng Yanez M.D., FACP at [facility] Internal Medicine - [address]12/13/2017 10:45 am - Tyree Goodrich M.D., FACC, FASNC at [facility]11/21/2017 - Mandy Mcfarlane, [facility]54.5 Low back painNew Xrays:MRI Lumbar Spine W/OSP Lumbar Ap//Lat 2-3 ViewsMRI Thoracic Spine W/OFollow up:RV in 2 -3 jiczgO46.3 Malignant neoplasm of pancreatic duct
--- OUTSIDE RECORDS SUMMARY | 2017-12-05 20:10 | XMS REPORT ---
:1955 External Reference #:[id number] Author Organization [facility] Address [address] [address] Phone [phone] Care Team Providers Name Role Phone Kvng Yanez MD Primary Care Physician Unavailable Payers Type Date Identification Numbers Payment Provider Subscriber Medicaid Effective: Policy Number: [id number] Medicaid Rojas Weaver 2015 PayID: [id number] [address] [place] [address] Medigap Part B Effective: 2013 Policy Number: [id number] Medicaid Rojas Weaver Expires: 2015 PayID: [id number] [address] [place] [address] Workers Compensation Onset: 2011 Policy Number: Brian Weaver [id number] PayID: [id number] [address] [place] [address] Problems Date Description Provider Status Onset: 04/15/2016 [...] Active Onset: 10/21/2016 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., Active coronary artery w/o ang pctrs [facility], [facility] Onset: 10/24/2017 Neck pain Mandy Mcfarlane [...] Coronary Artery Disease (CAD) Father due to [place] () Mother Diabetes Type II Mother due to Diabetes () - complications Siblings 4 2 now First Brother due to [place] () Second Brother due to [place] () First Sister Fibromyalgia Second Sister Mental Illness NOS Social History Type Date Description Comments Marital Status Lives With Alone 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 Metronidazole Active Tablets 500mg 30tabs 1 by [...] mouth Kvng Edgar every day Sara Yanez,FACP [place] 09/20/2017 Active Tablets 10-325m 120tabs one tab 4 M54 Ashely g times/day .12 Narvaez, [employer] as needed for pain Spironolactone 06/22/2017 Active Tablets 25-25mg 90tabs 1 by mouth I10 Ashely /Hydrochloroth every Narvaez, [employer] iazide morning BD Insulin 04/25/2017 Active Misc 29G X 150units use up to E11 Jed Edgar Syringe 1/2" 1 five times .65 [place], Safetyglide/1M ML daily as M.D.,FACP L/29G X 1/2" directed Humalog 02/27/2017 Active Solution 100Unit 15ml inject 10 u Kvng Edgar Kwikpen Pen-Inject /ML Am, 10u [place], lunch, 12u M.D.,FACP dinner, and as needed, [...] Flextouch Pen-Inject /ML the in the .42 [place], morning M.D.,FACP & inject 45 units daily at bedtime E11.65 Fluticasone 09/10/2015 Active Suspension 50mcg/Act 1units 2 sprays J30.9 Christa Propionate each Be, nostril M.D. everyday prn Lisinopril 10/29/2013 Active Tablets 40mg 90tabs Take One E11.65 Clay- Dana Tablet By l DJagruti Mouth [place], Every Day M.D.,FAC P Omeprazole 05/07/[address] 20mg 90caps 1 by K21.9 Christa mouth Be, every day M.D. Metoprolol 11/30/2011 Active Tablets 25mg 270tabs take 1 Clay-Dana Tartrate and 1/2 l D. tablets [place], by mouth M.D.,FAC twice P daily Freestyle 05/24/2011 Active 100units use as E11.65 Ronak Lite Test directed Roseanne Villatoro three [employer] times a day or as needed dx: e11.65 BD Pen 01/25/2011 Active Misc 29G X 150units use as E11.65 Clay-Dana Needle/Ultraf 12.7mm directed storm Edgar ine/29G X with Renata, 12.7mm novolog Sara,FAC and P levimir Aspirin Ec Active Tablets DR 81mg 90tabs 1 tablet E11.65 Unknown Lo-Dose daily. Bethanechol Active Tablets 25mg 120tabs take one Den Chloride tablet by storm Edgar mouth Renata, four M.D.,FAC times a P day Metformin HCL Active Tablets 1000mg 180tabs take one E11.42 Clay-Dana tablet by storm Edgar mouth Renata, twice a M.D.,FAC day P E11.[address] 00617Gyts 270caps Take 1 To 3 Jed Edgar Part Capsules By Renata Mouth 5 M.DJagruti,FACP Minutes Before A Meal Medrol 09/07/2017 - Hx Tablets 4mg 1pak medrol S43. Kvng Edgar 09/15/2017 dosepack as 422A franics Yanez M.D.,FACP M54.2 Diclofenac Sodium 08/28/[address] 75mg 40tabs take 1 S43.422A Ashely - tablet twice Narvaez, 09/11/2017 a day with [employer] food [place] 08/28/2017 Hx Tablets 5-325 30tabs 1 tabs three S43.422A Ashely - mg times a day Narvaez, 09/20/2017 as needed [employer] pain Marijuana Oil 06/22/2017 Hx 2 puffs [...] Solution 100Un 15ml BS 0-150 no E11.42 [place] - Pen-Inject it/ML units, Jason, 05/04/2016 151-200=2 M.D. units, 201-250=4 units, 251-300=6 units, 301-350=8 units > 351 call MD Wright M10 01/05/2016 Hx Tablets ER 10Meq 30tabs [...] - 12HR twice a day Be 12/29/2015 MVenita Mag-200 02/27/2015 Hx Tablets 400mg 30tabs 2 tab po Christa - everyday Be, 12/29/2015 M.D. Humulin N 70/30 02/16/2015 Hx Supn 100Un Take 10 Adryan Kwikpen - it/ML units sc in [place], [employer] 02/16/2015 the morning and 10 units sc every evening Humulin 02/16/2015 Hx Supn (70-3 6units 15 units sq Christa Kwikpen - 0)100 in morning Lr, 12/29/2015 Unit/ and 15 units M.D. ML sq in evening Novolin 02/12/2015 Hx Suspension (70-3 6vials 10unit sc [...] tab by 780.52 Christa - mouth at [place], 10/28/2014 bedtime as M.D. needed Nitrostat 07/01/2014 [...] NDL 05/13/2014 Hx 150unit use as Kvng 12.5LTE51K - s directed Tala [place], 04/25/2017 with novolog M.D.,FACP and levemir- onlys [...] DR 100mg 20tabs 1 po bid 682.9 [place] Hyclate - [place]ach[place], 12/05/2012 M.DJagruti Doxycycline 12/05/2012 Hx Capsules 100mg 20caps bid po Josse Hyclate - [place], 01/28/2013 M.DJagruti Keflex 04/20/2012 Hx Capsules 500mg 28caps 1 po 4 times Gera - per day Donna, 05/07/2012 M.DJagruti Lisinopril 12/06/2011 Hx Tablets 10mg 90tabs 1 po qd [place] - Vikasika, 03/01/2012 M.DJagruti Levemir Flexpen 10/26/2011 Hx Solution 100Un 30units Inject 45 Lucho E. - Pen-Inject it/ML Units Every Le, 04/25/2016 Morning And M.DJagruti 50 Units In The Evening Hydrochlorothiazi 10/05/2011 Hx Tablets 25mg 90tabs 1 po qd [place] de - [place], 10/14/2011 M.DJagruti Naprosyn 08/25/2011 Hx Tablets 500mg 40tabs twice daily Gera - with food x Donna, 10/05/2011 5 days, then M.D. qD prn Furosemide 06/21/2011 Hx Tablets 40mg 30tabs po qam 457.1 [place] - Jason, 10/05/2011 M.D. Potassium 06/21/2011 Hx Tablets ER 20Meq 30tabs take 1 tab 457.1 Josse Chloride ER - by mouth [place], 10/05/2011 daily M.D. Naproxen 06/07/[address] 375mg 30tabs bid 719.06 Josse - Jason, 07/12/2011 M.D. Zithromax Z-Isaac 06/07/2011 Hx Tablets 250mg 1tabs 2tab today 466.0 [place] - and 1tab Vikasikara, 06/21/2011 daily x M.D. 4days Accu-Chek Comfort 05/23/2011 Hx Strips 120unit qid and prn 250.00 [place] Curve Test Strips - s Jason, 03/01/2012 M.DJagruti Levemir Flexpen 04/20/2011 Hx Solution 100Un 5Vials 40 am 45 pm 250.00 Josse - it/ML Vikasikara, 10/26/2011 M.D. Novolog Flexpen 04/20/2011 Hx Solution 100Un 2units Inject 12 250.00 Christa - Pen-Inject it/ML Units Under Lr, 07/01/2014 The Skin M.D. Before Every Meal Benadryl Allergy 04/13/2011 Hx Capsules 25mg 60caps 2- 4 tabs [place] - for Vikasika, 04/13/2011 allergies M.D. Zolpidem Tartrate 01/19/2011 Hx Tablets 10mg 30tabs 1/2 to 1 tab 780.52 Josse - po qhs prn [place], 04/20/2011 M.D. [...] Hx Tablets 40mg 90tabs 1 po qd [place] - Jason, 05/07/2012 M.D. Plavix Hx Tablets 75mg 90tabs 1 po qd Josse Gomez, 03/16/2012 M.D. Lisinopril Hx Tablets 10mg 45tabs 1/2 tab qd [place] - guillermina Gomez, 12/06/2011 M.D. Levemir Flexpen Hx Solution 100Un 5Vials 40 units Josse - it/ML q12h Jason, 04/20/2011 M.D. Novolog Flexpen Hx Solution 100Un 1Box 10units subq [place] - it/ML before every Vikasika, 04/20/2011 meal M.D. Percocet Hx Tablets 10-32 60tabs 1 po qid prn [place] - 5mg Jason, 10/05/2011 M.D. Hydrochlorothiazi Hx Capsules 12.5m 30caps 1 po qd Josse zimmerman - manju Gomez, 09/17/2013 M.D. Nucynta Hx Tablets 100mg 2-4 daily Unknown - 10/28/2014 Lisinopril Hx Tablets 20mg 90tabs Take One [place] - Tablet By Jason, 10/29/2013 Mouth Every M.D. Day Zyrtec Allergy Hx Tablets 10mg 30tabs 1 po qd prn Unknown - 07/01/2014 Simvastatin Hx Tablets 80mg 90tabs Take One [place] Rey - Tablet By Jason, 04/15/2016 Mouth At [...] Caraballo Regadenoson, 017 Kp, 0.1 MG Sara, [facility] Technetium TC Administered Injection Tyree Caraballo 99M 017 Kp TetrofsanaminSara, [facility], Per Unit Dose [facility] Up To 40 Millicuries Immunizations CPT Code Status Date Vaccine Lot # [id number] Given 06/22/2017 Influenza Virus Vaccine, Quadrivalent, Split, [id number] Preservative Free [id number] Given 05/20/2016 Influenza Virus Vaccine, Quadrivalent, Split, [id number] Preservative Free 12612 Given 05/26/2015 Influenza Virus Vaccine, Quadrivalent, Split, [id number] Preservative Free 03427 Given 10/28/2014 Hepatitis B Vaccine Adult Dosage [id number] 15934 Given 10/28/2014 Pneumococcal Conjugate Vaccine 13 Valent For [id number] Intramuscular Use 40486 Given 06/05/2014 Flu Vaccine Split Virus Preservative Free For [id number] Indiv 3Yr Older 18210 Given 11/21/2013 Hepatitis B Vaccine Adult Dosage [id number] 77725 Given 10/22/2013 Hepatitis B Vaccine Adult Dosage [id number] 61612 Given 07/04/2013 Flu Vaccine Split Virus Preservative Free For [id number] Indiv 3Yr Older 59852 Given 04/23/2012 Influenza Virus 3Yrs & Over 87103 Given 07/12/2011 Influenza Virus 3Yrs & Over 23472 Given 07/12/2011 Influenza Virus 3Yrs & Over [id number] 65465 Given 08/14/2006 Tdap - Tetanus/Diptheria/Acellular Pertussis Vital Signs Date Vital Result Comment 11/08/2017 Height 75 inches 6'3" Weight 274.00 [...] Result H/L Range Note Laboratory test finding 09/29/2017 Hemoglobin A1c 11.7 High 5-7 Laboratory test finding 06/22/2017 Hemoglobin A1c 7.4 [...] Lipid Profile (Trig/Chol/HDL) 05/10/2016 Triglycerides 81 mg/dL 13 Cholesterol 105 mg/dL 14 HDL Cholesterol 38.2 mg/dL 15 LDL Cholesterol 51 mg/dL 16 Urine Microalbumin Random 05/10/2016 Urine Creatinine 43.09 [...] Egfr Non- 88.0 >60 Egfr 113.2 >60 17 Laboratory test finding 05/10/2016 Magnesium 1.3 mg/dL Low 1.9-2.7 Iron & Iron Binding Capacity 05/10/2016 Iron 74 g/dL 50-212 Unsaturated Iron Binding 291 g/dL Total Iron Binding Capacity 365 g/dL 250-450 % Iron Saturation 20 % 15-55 Laboratory test finding 05/10/2016 Ferritin 180.4 ng/mL 24-336 Vitamin B12 1173 pg/mL High 180-914 18 Folic Acid (Folate) > 20.00 ng/mL >3.99 [...] Egfr Non- 85.8 >60 Egfr 110.3 >60 19 CBC Auto Diff 05/10/2016 White Blood Count [...] Microalbumin 01/22/2013 Ur Microalbumin (mg/L) 548.0 mg/L 51 Random Urine Creatinine 175.5 mg/dL Urine Microalbumin/Creatinine [...] Egfr Non- 68.8 >60 Egfr 88.4 >60 52 Lipid Profile (Trig/Chol/HDL) 01/22/2013 Triglycerides 65 mg/dL 40-200 Cholesterol 108 mg/dL Less than 200 HDL Cholesterol 40 mg/dL 40-60 53 Cholesterol/HDL Ratio 2.7 Average 1-4.44 LDL Cholesterol 55.0 Less Than 100 54 Laboratory test finding 01/22/2013 Lyme Disease Serology Negative Negative 55 Oncology CBC Auto Diff 01/15/2013 White Blood [...] % 4.1 % High 0-2 Laboratory test 09/11/2012 Platelet Count, 133 cumm Low 150-450 finding Citrated Laboratory test 06/01/2012 Hepatitis B Core IgM Nonreactive Nonreactive 56 finding Hepatitis C Antibody Nonreactive Nonreactive 57 Hepatitis B Winston AB 06/01/2012 Hepatitis B Surface AB Nonreactive Nonreactive Titer Hep B Surf AB Index 0.13 58 Laboratory test finding 06/01/2012 Hepatitis B Surface Nonreactive Nonreactive 59 Antigen Immunofixation (Electro) 06/01/2012 Albumin (Pep) 3.28 GM/DL 3.0-4.35 Serum Alpha 1 Globulins 0.21 GM/DL 0.09-0.33 Alpha [...] 6.2 GM/DL 6.2-8.1 Spep Comments (SEE NOTE) 60 Serum Immunofixation (SEE NOTE) 61 Oncology CBC Manual Diff 06/01/2012 White Blood [...] % Blast % 0 % Elliptocyte 1+ Retic Count 06/01/2012 Retic Count 1.8 % High 0.5-1.5 Corrected Retic Count 1.5 % 0.5-1.5 Maturation Factor Retic 1.5 Retic Index 1.00 Mean Retic Volume 104.3 Immature Retic Fraction 0.41 RBC Retic Count 4.50 10^6/uL Low 4.6-6.2 Hematocrit for Retic CNT 38 % Low 42-52 Laboratory test finding 06/01/2012 Ferritin 46 NG/ML 24-336 Vitamin B12 340 pg/mL 180-914 Iron & Iron Binding Capacity 06/01/2012 Iron 82 UG/ML 45-182 Unsaturated Iron Binding 326 g/dL Total Iron Binding Capacity 408 g/dL 250-450 Transferrin 291.6 % Iron Saturation 20 % 15-55 Laboratory test finding 06/01/2012 LDH 185 U/L 95-185 Liver Function Panel 06/01/2012 Total Protein 5.8 GM/DL Low 6.2-8.1 Albumin 3.8 GM/DL 3.6-5.4 Globulin 2.0 GM/DL 2-4 Albumin/Globulin Ratio 1.9 1-3 Total Bilirubin 0.6 mg/dL 0.1-1.0 62 Direct Bilirubin 0.1 mg/dL 0.1-0.5 Indirect Bilirubin 0.5 mg/dL 0.3-1.0 Alkaline Phosphatase 52 U/L 30-110 Alt 23 U/L 14-54 Ast 30 U/L 12-42 Laboratory test finding 05/07/2012 Hemoglobin A1c 7.2 [...] finding 03/30/2012 PTT (Aptt) 25.4 SEC 25.1-38.5 Retic Count 03/20/2012 Reticulocyte Count 1.32 % 0.5-1.5 Corrected Retic 1.0 % 0.5-1.5 Retic Index 0.7 Mean Retic Volume 99.1 Immature Retic Fraction 0.38 RBC Retic Count 4.19 CUMM Low 4.6-6.2 Hematocrit For Retic Coun 35 % Low 42-52 Laboratory test finding 03/20/2012 Ferritin 59 NG/ML 24-336 Vitamin B12 211 pg/mL 180-914 Folic Acid 15.3 NG/ML See Below 68 Basic Metabolic Panel 03/20/2012 Sodium 140 mmol/L 135-145 Potassium 4.7 mmol/L 3.5-5.0 Chloride 103 mmol/L 101-111 Co2 (Carbon Dioxide) 30.0 mmol/L 22-32 Anion Gap 7.0 mmol/L 2-11 69 Glucose 111 mg/dL High 70-100 BUN 23 mg/dL 6-24 Creatinine 1.1 mg/dL 0.50-1.40 One Over Creatinine 0.90 BUN/Creatinine Ratio 20.9 High 8-20 Calcium 8.7 mg/dL 8.1-9.9 eGFR Non- 69.0 > 60 eGFR 88.7 > 60 70 CBC With Manual Diff 03/20/2012 White [...] 210.6 UG/MG High Less Than 30 71 Basic Metabolic Panel 02/03/2012 Sodium 136 mmol/L 135-145 Potassium 4.8 mmol/L 3.5-5.0 Chloride 101 mmol/L 101-111 Co2 (Carbon Dioxide) 29.0 mmol/L 22-32 Anion Gap 6.0 mmol/L 2-11 72 Glucose 307 mg/dL High 70-100 BUN 20 mg/dL 6-24 Creatinine 1.2 mg/dL 0.50-1.40 One Over Creatinine 0.83 BUN/Creatinine Ratio 16.7 8-20 Calcium 8.8 mg/dL 8.1-9.9 eGFR Non- 62.4 > 60 eGFR 80.3 > 60 73 CBC Auto Diff 02/01/2012 White Blood Count [...] 0-0.2 Protime 02/01/2012 Inr 0.87 Low 0.88-1.13 74 Protime 10.3 SEC 10.3-13.5 75 Comp Metabolic Panel 02/01/2012 Sodium 136 mmol/L 135-145 Potassium 4.3 mmol/L 3.5-5.0 Chloride 101 mmol/L 101-111 Co2 (Carbon Dioxide) 29.0 mmol/L 22-32 Anion Gap 6.0 mmol/L 2-11 76 Glucose 95 mg/dL 70-100 BUN 24 mg/dL 6-24 Creatinine 1.3 mg/dL 0.50-1.40 One Over Creatinine 0.76 BUN/Creatinine Ratio 18.5 8-20 Calcium 9.1 mg/dL 8.1-9.9 Total Protein 7.2 GM/DL 6.2-8.1 Albumin 4.0 GM/DL 3.6-5.4 Globulin 3.2 GM/DL 2-4 Albumin/Globulin Ratio 1.3 1-3 Bilirubin Total 0.7 mg/dL 0.4-1.5 77 Alkaline Phosphatase 48 U/L 39-117 Alt (SGPT) 22 U/L 17-63 Ast (Sgot) 29 U/L 12-42 eGFR Non- 56.9 > 60 eGFR 73.2 > 60 78 Laboratory test finding 02/01/2012 Troponin-I 0 NG/ML 0-0.06 79 Laboratory test finding 10/26/2011 Hemoglobin A1c 8.2 High 5-7 Comp Metabolic Panel 10/10/2011 Sodium 141 mmol/L 135-145 Potassium 5.0 mmol/L 3.5-5.0 Chloride 104 mmol/L 101-111 Co2 (Carbon Dioxide) 30.0 mmol/L 22-32 Anion Gap 7.0 mmol/L 2-11 80 Glucose 172 mg/dL High 70-100 BUN 16 mg/dL 6-24 Creatinine 1.0 mg/dL 0.50-1.40 One Over Creatinine 1.00 BUN/Creatinine Ratio 16.0 8-20 Calcium 8.9 mg/dL 8.1-9.9 Total Protein 5.9 GM/DL Low 6.2-8.1 Albumin 3.7 GM/DL 3.6-5.4 Globulin 2.2 GM/DL 2-4 Albumin/Globulin Ratio 1.7 1-3 Bilirubin Total 0.5 mg/dL 0.4-1.5 81 Alkaline Phosphatase 55 U/L 39-117 Alt (SGPT) 18 U/L 17-63 Ast (Sgot) 22 U/L 12-42 eGFR Non- 77.3 > 60 eGFR 99.4 > 60 82 Lipid Profile (Trig/Chol/HDL) 10/10/2011 Triglyceride 63 mg/dL 40-200 Cholesterol 130 mg/dL Less Than 200 83 High Density Lipoprotein 52 mg/dL 40-60 84 Cholesterol/HDL Ratio 2.50 AVERAGE 1-4.97 Low Density Lipoprotein 65 mg/dL Less Than 100 85 Laboratory test finding 04/20/2011 Hemoglobin A1c [...] and in selective patients <6.0%.Please refer to [place] [employer] Diabetic care guidelines for further information. 8 Optical Goods Worker: [id number] YISEL NÚÑEZ 9 [employer] Goods Worker: [id number] YISEL NÚÑEZ 10 [employer] Goods Worker: [id number] YISEL NÚÑEZ 11 Because ethnic data is [...] 5 Kidney failure <15 (or dialysis) 13 Desirable <150 Borderline high 150-199 High 200-499 Very High >500 14 Desirable <200 Borderline high 200-239 High >239 15 Low <40 Desirable: 40-60 High: >60 16 Desirable: <100 mg/dL Near Optimal: 100-129 mg/dL Borderline High: 130-159 mg/dL High: 160-189 mg/dL Very High: >189 mg/dL 17 Because ethnic data is not always readily [...] 15-29 5 Kidney failure <15 (or dialysis) 18 Normal Range 180 to 914 Indeterminate Range 145 to 180 Deficient Range <145 19 Because ethnic data is not always [...] 5 Kidney failure <15 (or dialysis) 20 Because ethnic data is not always [...] 0.03 ng/mL Not supportive of diagnosis of [place] 0.03 - 0.50 ng/mL Indeterminate: suggest serial studies if clinically indicated. Greater than 0.5 ng/mL Consistent with diagnosis of [place] 22 Critical Result M.9 Called to [id number] at: 13:12:04 by:[id number] Read back by:[id number] 23 Therapeutic target for the treatment of diabetes Mellitus patients is <7% HBA1C, and in selective patients <6.0%.Please refer to [place] [employer] Diabetic care guidelines for further information. 24 Critical Result LACT:2.2 Called to [id number] at: 22:27:22 by:[id number] Read back by:[id number] [facility] Severe Sepsis and Septic Shock Management [...] 0.03 ng/mL Not supportive of diagnosis of [place] 0.03 - 0.50 ng/mL Indeterminate: suggest serial studies if clinically indicated. Greater than 0.5 ng/mL Consistent with diagnosis of [place] 29 Optical Goods Worker: [id number] AMY SANCHEZ 30 [facility] Severe Sepsis and Septic Shock Management [...] Serum levels of PSA measured using the [employer] DXI Hybritech immunoassay should not be interpreted [...] and in selective patients <6.0%.Please refer to [place] [employer] Diabetic care guidelines for further information. 41 FASTING 12 HOUR 42 Therapeutic target for the treatment of diabetes Mellitus patients is <7% HBA1C, and in selective patients <6.0%.Please refer to [place] [employer] Diabetic care guidelines for further [...] 0.06 ng/mL Not supportive of diagnosis of [place] 0.06 - 0.50 ng/mL Indeterminate: suggest serial studies if clinically indicated. Greater than 0.5 ng/mL Consistent with diagnosis of [place] 50 Test Performed by: [address] [address] Assistant Grocery Store Manager: John Cash III, M.D. 51 Microalbuminuria in a random sample is defined as: Microalbumin/Creatinine ratio of 30-299 ug/mg. 52 Because ethnic data is not always readily [...] 15-29 5 Kidney failure <15 (or dialysis) 53 HDL Interpretation: Undesirable: High Risk: Less than 40 mg/dL Desirable: Low Risk: Greater than 60 mg/dL 54 LDL Interpretation: Low Risk Optimal Level: LDL Less than 100 mg/dL Near or Above Optimal: LDL 100-129 mg/dL Borderline High Risk: LDL 130-159 mg/dL High Risk: LDL 160-189 mg/dL Very High Risk: LDL Greater than 189 mg/dL 55 Serologic response to B. burgdorferi infection is not detected, but cannot rule out early infection during which low or undetectable antibody levels to B. burgdorferi may be present. If clinically indicated, a new serum specimen should be submitted in 7-14 days. Test Performed by: [address] [address] Assistant Grocery Store Manager: John Cash III, M.D. 56 @Sample frozen by [id number] at 2041 on 06/01/12. 57 @Sample frozen by [id number] at 2041 on 06/01/12. 58 The World Health Organization (WHO) Hepatitis B Immunoglobulin 1st International Reference Preparation (1976): The accepted criteria for immunity to HBV is anti-HBs activity greater than or equal to 10 mIU/mL. An Index Value of 1.00 is equivalent to 10 mIU/mL. Samples with an Index Value of 1.00 or greater are considered reactive (protective) in accordance with the CDC guidelines. 59 @Sample frozen by [id number] at 2041 on 06/01/12. 60 Normal serum electrophoretic pattern. 61 Normal serum immunofixation electrophoretic pattern. No monoclonal protein detected. 62 A metabolite of Naproxen, O-desmethylnaproxen, has been shown to interfere with the [place] method for measuring total bilirubin. Samples from patients who have taken Naproxen have shown spurious elevation in total bilirubin levels. 63 Please note: New reference range, effective [...] BASED ON THE INR VALUE ALONE. 68 Please note: New reference range, effective 12/22/11 NORMAL REFERENCE RANGE: GREATER THAN 4.1 NG/ML 69 Anion gap measurement may be of limited value in the presence of any alkalosis, especially in a combined acid base disorder. . 70 Because ethnic data is not always readily [...] 15-29 5 Kidney failure <15 (or dialysis) 71 MICROALBUMINURIA IN A RANDOM SAMPLE IS [...] 5 Kidney failure <15 (or dialysis) 74 Recommended INR for Patients on Oral Anticoagulants Prophylaxis 2.0 - 3.0 Treatment of thrombosis 2.0 - 3.0 Prevention of embolism 2.0 - 3.0 Prevention of embolism from prosthetic heart valves 2.5 - 3.5 75 DIAGNOSIS,TREATMENT,AND THERAPY MUST BE BASED ON THE INR VALUE ALONE. 76 Anion gap measurement may be of limited value in the presence of any alkalosis, especially in a combined acid base disorder. . 77 A metabolite of Naproxen, O-desmethylnaproxen, has been shown to interfere with the [employer] method for measuring total bilirubin. Samples from patients who have taken Naproxen have shown spurious elevation in total bilirubin levels. 78 Because ethnic data is not always readily [...] 15-29 5 Kidney failure <15 (or dialysis) 79 New Reference Range and Interpretation effective 05/17/2002 TnI (ng/ml) INTERPRETATION Less Than 0.06 ng/mL NOT SUPPORTIVE OF DIAGNOSIS OF [place] 0.06 - 0.50 ng/ml INDETERMINATE: SUGGEST SERIAL STUDIES IF CLINICALLY INDICATED. Greater than 0.5 ng/mL CONSISTENT WITH DIAGNOSIS OF [place] . 80 Anion gap measurement may be of limited value in the presence of any alkalosis, especially in a combined acid base disorder. . 81 A metabolite of Naproxen, O-desmethylnaproxen, has been shown to interfere with the [place] [place] method for measuring total bilirubin. Samples from patients who have taken Naproxen have shown spurious elevation in total bilirubin levels. 82 Because ethnic data is not always readily [...] 15-29 5 Kidney failure <15 (or dialysis) 83 CHOLESTEROL INTERPRETATION: Desirable: Less than 200 MG/DL Borderline-High Risk: 200-239 MG/DL High-Risk: 240 MG/DL and over 84 HDL INTERPRETATION: Undesirable: High Risk: Less than 40 MG/DL Desirable: Low Risk: Greater than 60 MG/DL 85 LDL INTERPRETATION: Low Risk Optimal Level: LDL Less than 100 MG/DL Near or Above Optimal: LDL 100-129 MG/DL Borderline High Risk: LDL 130-159 MG/DL High Risk: LDL 160-189 MG/DL Very High Risk: LDL Greater than 189 MG/DL Procedures Date CPT Code Description Status Comment 11/04/2016 28818 ECHO Transthoracic, Real-Time Completed 2D With Doppler And Color Flow 10/31/2016 86145 Stress Test Completed 10/31/2016 89828 Myocardial Perfusion Imaging Completed Tomographic (Spect) Multiple Studies 10/21/2016 86790 EKG Tracing & Completed Interpretation 12/11/2015 Diabetic Retinal Eye Exam Completed 08/28/2015 Diabetic Retinal Eye Exam Completed 07/23/2015 Diabetic Retinal Eye Exam Completed 09/14/2014 Colonoscopy Completed intestinal undigested food ? abcess, amato'e esophagus 06/09/2014 99347 Spirometry Incl Graphic Record Completed 05/16/2014 Diabetic Retinal Eye Exam Completed 05/15/2014 Diabetic Retinal Eye Exam Completed Document: 05/15/14 - Consult Ophthalmology/[place] 11/18/2013 Diabetic Retinal Eye Exam Completed 11/08/2013 22165 EKG Tracing & Completed Interpretation 11/04/2013 40464 ECHO Transthoracic, Real-Time Completed 2D With Doppler And Color Flow 03/30/2012 58468 Arthroscopy,Knee,Meniscectomy Completed Media & Lateral 03/30/2012 99645 Arthroscopy,Knee,Meniscectomy Completed Media & Lateral 03/16/2012 22739 EKG Tracing & Completed Interpretation 08/14/2007 Colonoscopy Completed Document: 01/19/11 - History Encounters Type Date Location Provider CPT E/M Dx Office Visit 10/27/2017 [facility] Kvng Yanez, [address] M50.122 9:40a [facility] [place] Alhaji Ruiz,FACP E11.65 I10 Office Visit 09/29/2017 9:40a [facility] Kv[place] Yanez, [address] E11.65 [facility] [place] Alhaji Ruiz,FACP M54.12 Office Visit 09/20/2017 10:50a [facility] Ashely Narvaez, CLAY [address] M54.12 Medicine - [address] Office Visit 08/28/2017 1:10p [facility] Ashely Narvaez, CLAY [address] S43.422A Medicine - [address] M54.2 Office Visit 06/22/2017 9:40a [facility] Kvng Yanez, 20724 E11.65 Medicine - [place] Alhaji Ruiz,FACP I10 C25.3 Z23 Office Visit 02/27/2017 8:50a [facility] Kvng Yanez, 60728 C25.3 - [place] Alhaji Ruiz,FACP E11.65 I10 E83.42 Office Visit 11/28/2016 10:30a [facility] Kvng Yanez, 56008 E11.65 Medicine - [place] Alhaji Ruiz,FACP I10 C25.3 Office Visit 11/07/2016 10:00a [facility] Tyree Goodrich, 25141 I25.10 Vicenta Ruiz, FACC, FASNC Office Visit 10/21/2016 1:30p [facility] Tyree Goodrich, 09939 I25.10 Vicenta Barraza [place] Sara, FAC, FASNC R94.31 Office Visit 08/29/2016 2:40p [facility] Kvng Yanez, 94942 E11.649 Medicine - [place] Alhaji Ruiz,FACP I10 Office Visit 07/01/2016 9:00a [facility] Kvng Yanez, 46127 C25.[address] - [address] Sara,FACP I10 E87.6 E13.9 Office Visit 05/20/2016 9:00a [facility] Kvng Edgar [place], 08332 E11.649 Medicine - [address] MVenita,FACP E87.6 I10 C25.3 Z23 Office Visit 05/09/2016 8:20a [facility] - Ronak Villatoro, [employer] [address] E87.6 E83.42 I10 Z79.4 Office Visit 05/04/2016 2:46p [facility] Refugio CesarRj, 79920 E16.2 Assoc,pc PA Hospitalists E87.8 E13.9 Office Visit 05/03/2016 2:46p [facility] Dinorahjermain Goodwin, 92436 E16.2 Assoc,pc [employer] Hospitalists E87.8 E13.9 Office Visit 04/15/2016 1:00p [facility] Josse Gomez M.D. 83506 E78.2 Medicine - [address] C25.3 E11.42 K21.9 Office Visit 01/14/2016 8:00a [facility] - Christa Lr M.D. 06064 R17 [place] K86.8 Office Visit 01/05/2016 1:40p [facility] - Christa Lr M.D. 96951 R17 [place] E11.8 Office Visit 01/01/2016 12:43p [facility],briana Arnett M.D. 90179 R17 Hospitalists I25.10 E11.8 I10 Office Visit 12/31/2015 12:42p [facility],briana Arnett M.D. 81671 R17 Hospitalists I25.10 E11.8 I10 Office Visit 12/30/2015 12:41p [facility],briana Arnett M.D. 49542 R17 Hospitalists I25.10 E11.8 I10 Office Visit 12/29/2015 12:40p [facility],pc Hermelindo Weller, 78872 R17 Hospitalists N.P. I25.10 E11.8 I10 Office Visit 12/29/2015 10:40a [facility] Christa Lr M.D. 36975 E11.65 - [place] K52.9 Office Visit 09/10/2015 10:40a [facility] Christa Lr M.D. 45540 E11.65 - [place] I73.9 J30.9 Office Visit 08/27/2015 10:00a [facility] Christa Lr M.D. 35391 E11.65 - [place] N29 J20.9 H91.93 Office Visit 05/26/2015 10:40a [facility] Christa Lr M.D. 21106 E11.65 - [place] Z23 Office Visit 04/07/2015 10:40a [facility] Christa Lr M.D. 61088 250.02 - [place] Office Visit 03/06/2015 10:40a [facility] Christa Lr M.D. 92095 250.02 - [place] 729.82 593.9 Office Visit 02/12/2015 9:00a [facility] Christa Lr M.D. 21300 V70.0 - [place] 272.2 250.00 536.3 729.82 V76.44 250.02 Office Visit 10/28/2014 1:40p [facility] Christa Lr M.D. 03231 250.00 - [place] 536.3 272.2 V05.3 V03.82 V58.67 Office Visit 07/01/2014 12:40p [facility] Christa Lr M.D. 08079 250.00 - [place] 493.90 536.3 780.52 Office Visit 06/05/2014 1:00p [facility] Christa Lr M.D. 07614 272.2 - [place] 250.00 536.3 493.90 v04.81 Office Visit 02/28/2014 9:40a [facility] Christa Lr M.D. 91716 250.00 - [place] 272.4 V76.44 Office Visit 11/21/2013 8:40a [facility] Christa Lr M.D. 02443 250.00 - [place] v05.3 917.0 Office Visit 10/29/2013 1:40p [facility] Christa Lr M.D. 73623 917.0 - [place] 807.00 401.9 250.00 Office Visit 10/22/2013 11:00a [facility] Christa Lr M.D. 96301 250.02 - [place] 401.9 917.0 v05.3 Office Visit 10/03/2013 11:20a [facility] Christa Lr M.D. 48651 401.9 - [place] 807.00 300.09 Office Visit 09/17/2013 1:30p [facility] Gina Razo M.D. 55815 401.9 - [place] 308.3 Office Visit 07/04/2013 11:50a [facility] Gina Razo, 21388 008.69 - Davisalmita Ruiz v04.81 Office Visit 05/28/2013 1:20p [facility] Josse Gomez, 86616 250.02 Medicine - Lennie Ruiz 401.9 272.4 278.00 Office Visit 01/28/2013 9:40a [facility] Josse Gomez, 23473 250.02 Medicine - Lennie Ruiz V76.44 401.9 278.00 272.4 V70.0 Office Visit 12/05/2012 11:40a [facility] Josse Gomez, 07985 682.9 - Lennie Ruiz 250.02 Office Visit 10/24/2012 9:20a [facility] Josse Gomez, 43489 250.02 Medicine - [place] Sara V76.44 401.9 272.4 278.00 Office Visit 10/12/2012 10:00a [facility] Tyree Goodrich, 55138 414.9 Vicenta Ruiz, [facility] Office Visit 05/07/2012 9:40a [facility] Elzbieta Gomez, 64203 250.02 Davisalmita Ruiz 401.9 272.4 278.00 287.5 530.81 Office Visit 04/23/2012 9:40a [facility] Josse Gomez, 16991 V04.81 Medicine - [place] Darryl.Tala 285.8 287.5 v04.81 250.02 Office Visit 03/22/2012 9:15a [facility], 95083 719.46 C.MRafael Ruiz Office Visit 03/16/2012 1:15p [facility] Nathalie Garciall, 75596 717.3 - [place] N.P. 401.1 272.2 V72.84 250.02 V72.84 Office Visit 03/01/2012 8:30a [facility] Nathalie Lovebull, N.P. 28162 250.02 - [place] 401.9 272.4 278.00 Office Visit 12/21/2011 2:00p [facility] Josse Gomez, 28568 250.02 Medicine - [place] Darryl.DJagruti Office Visit 11/09/2011 2:00p [facility] Josse Gomez, 51513 250.00 Medicine - [place] Darryl.DJagruti Office Visit 10/26/2011 2:00p [facility] Josse Gomez, 69845 250.00 Medicine - [place] M.DJagruti 401.9 272.4 530.85 278.00 Office Visit 10/11/2011 10:00a [facility] M.D. 63092 836.0 C.M.A. Office Visit 10/05/2011 9:40a [facility] Josse Gomez, 40763 717.3 - Lennie Ruiz Office Visit 08/25/2011 11:30a [facility] M.D. 41063 836.0 C.M.A. Office Visit 08/16/2011 1:00p [facility] Josse Gomez, 78233 717.3 - Davisalmita Ruiz 722.91 719.41 Office Visit 07/12/2011 11:00a DO Not Use [facility], 22518 V04.81 Rimma Ruiz 722.91 719.06 719.41 v04.81 Office Visit 06/28/2011 2:40p DO Not Use [facility] [place] [facility] [address] 807.00 Rimma Ruiz 457.1 Office Visit 06/21/2011 3:00p DO Not Use [facility], 51315 807.00 [facility] Sara 457.1 719.06 Office Visit 06/07/2011 1:00p DO Not Use [facility] [place] [facility] [address] 719.06 [place] Ruiz 466.0 Office Visit 04/20/2011 8:20a DO Not Use [employer] [facility] Josse Gomez M.D. 80287 401.9 [facility] 250.00 272.4 780.52 278.00 530.81 V70.0 Office Visit 01/19/2011 10:40a DO Not Use [employer] [facility] Josse Gomez M.D. 55052 401.9 [facility] 250.00 272.4 278.00 530.81 722.93 780.52 Plan of Care Future Appointment(s):11/28/2017 11:40 am - Kvng Yanez M.D.,FACP at [facility] - Ilrjsugcq61/18/2018 8:40 am - Kvng Yanez M.D.,FACP at [facility] - [address]11/21/2017 10:00 am - Mandy Mcfarlane MD at [facility]12/13/2017 10:45 am - Tyree Goodrich M.D., FACC, FASNC at [facility]11/16/2017 1:00 pm - Ica ECHO Schedule at [facility]11/08/2017 - Josse Gomez M.D.K57.32 Dvtrcli of lg int w/o perforation or abscess w/o bleedingNew Medication:Ciprofloxacin HCL 500 mgMetronidazole 500 mgFollow up:[address] Morales30.9 Dermatitis, unspecifiedNew Medication:Hydroxyzine HCL 10 mgNew Labs:CBC Auto DiffComp Metabolic IdsjvL40.5 Low back pain
[2017-12-05 21:19] LABS: EGFR Non-African American 49.2 (>60)
[2017-12-05 21:47] LABS: Hematocrit 37 % (42-52); Hemoglobin 12.5 g/dl (14.0-18.0); Mean Corpuscular HGB Conc 34 g/dl (31-36); Mean Corpuscular Hemoglobin 29 pg (27-31); Mean Corpuscular Volume 87 fL (80-94); Red Cell Distribution Width 16 % (10.5-15); White Blood Count 7.4 10^3/ul (3.5-10.8)
[2017-12-05] MEDS ORDERED: Ondansetron ODT TAB* 4 MG PO ONE (21:51)
--- NOTE | 2017-12-05 22:07 | ED ---
Arthur Matos Thomas, scribed for Antonino Perez MD on 12/05/17 at 2033 . Abdominal Pain/Male - HPI Summary HPI Summary: The patient is a 62 year old male with pancreatic cancer diagnosed two years ago status post whipple. He had a CT Pelvis obtained earlier today as an outpatient that showed Subtle nodular thickening along the bilateral posterior lateral peritoneum at the pelvis similar to the pattern seen in the upper abdomen on the November 29, 2017 exam suspicious for potential metastatic implants given the clinical context. This finding is new compared with the CT component of the 10/18/16. He complains of abdominal pain for the last few weeks that is constant and worsening. He rates the pain 10/10. He complains of nausea and vomiting. - History of Current Complaint Chief Complaint: EDAbdPain Stated Complaint: ABD/BACK PAIN Time Seen by Provider: 12/05/17 19:49 Hx Obtained From: Patient Onset/Duration: Still Present, Worse Since Timing: Constant Pain Intensity: 10 Pain Scale Used: 0-10 Numeric Aggravating Factor(s): Nothing Alleviating Factor(s): Nothing Associated Signs And Symptoms: Positive: Nausea, Vomiting - Allergies/Home Medications Allergies/Adverse Reactions: Allergies Allergy/AdvReac Type Severity Reaction Status Date / Time celecoxib [From Celebrex] Allergy Intermediate Swelling Verified 12/05/17 08:22 pregabalin [From Lyrica] Allergy Intermediate Swelling Verified 12/05/17 08:22 quinine Allergy Intermediate Swelling Verified 12/05/17 08:22 Home Medications: Home Medications Dapagliflozin Propanediol [Farxiga] 10 mg PO DAILY 12/05/17 [History Confirmed 12/05/17] HYDROcodone/ACETAMIN 5-325 MG* [Clyde 5-325 TAB*] 1 tab PO Q6H PRN MDD 4 tablets 12/05/17 [History Confirmed 12/05/17] Lisinopril TAB* [Prinivil TAB*] 40 mg PO DAILY 12/05/17 [History Confirmed 12/05] Oxymorphone ER (NF) [Opana ER (NF)] 7.5 mg PO Q12H 12/05/17 [History Confirmed 12/05/17] Spironolactone/HCTZ 25-25 MG* [Aldactazide 25-25*] 1 tab PO DAILY 12/05/17 [ History Confirmed 12/05/17] amLODIPine TAB* [Norvasc 5 mg TAB*] 2.5 mg PO DAILY 12/05/17 [History Confirmed 12/05/17] PMH/Surg Hx/FS Hx/Imm Hx Endocrine/Hematology History: Reports: Hx Diabetes - TYPE 2 Cardiovascular History: Reports: Hx Congestive Heart Failure, Hx Coronary Artery Disease, Hx Hypercholesterolemia, Hx Hypertension - ON MEDS Respiratory History: Reports: Hx Asthma GI History: Reports: Hx Gastroesophageal Reflux Disease, Hx Jaundice - 1960s History: Reports: Hx Kidney Stones, Other Problems/Disorders - kidney doc says kidney fine but pees brown Denies: Hx Renal Disease Musculoskeletal History: Reports: Hx Back Problems - low back pain Sensory History: Reports: Hx Contacts or Glasses - reading glasses at home Opthamlomology History: Reports: Hx Contacts or Glasses - reading glasses at home Psychiatric History: Reports: Other Psychiatric Issues/Disorders - claustrophobic - Cancer History Cancer Type, Location and Year: Pancreatic, Diagnosed in December 2015 Hx Chemotherapy: Yes - Surgical History Surgery Procedure, Year, and Place: back surgery; Right Knee Surgery March 30, 2012, cardiac cath with stents, WHIPPLE PROCEDURE Hx Anesthesia Reactions: No Infectious Disease History: No Infectious Disease History: Denies: Traveled Outside the [place] in Last 30 Days - Family History Known Family History: Positive: None, Cardiac Disease - Father - [place], Diabetes - Mother - [place] - Social History Alcohol Use: None Hx Substance Use: No Substance Use Type: Reports: Marijuana, Prescribed Substance Use Comment - Amount & Last Used: oxycontin and nucynta Hx Tobacco Use: Yes Smoking Status (MU): Former Smoker Type: Cigarettes Amount Used/How Often: 1 can a week Have You Smoked in the Last Year: No Review of Systems Negative: Fever Negative: Epistaxis Positive: Abdominal Pain, Vomiting, Nausea All Other Systems Reviewed And Are Negative: Yes Physical Exam - Summary Physical Exam Summary: Appearance: The patient is well-nourished in no acute distress and in no acute pain. Skin: The skin is warm and dry and skin color reflects adequate perfusion. HEENT: The head is normocephalic and atraumatic. The pupils are equal and reactive. The conjunctivae are clear and without drainage. Nares are patent and without drainage. Mouth reveals moist mucous membranes and the throat is without erythema and exudate. The external ears are intact. The ear canals are patent and without drainage. The tympanic membranes are intact. Neck: the neck is supple with full range of motion and non-tender. There are no carotid bruits. There is no neck vein distension. Respiratory: Chest is non-tender. Lungs are clear to auscultation and breath sounds are symmetrical and equal. Cardiovascular: Heart is regular rate and rhythm. There is no murmur or rub auscultated. There is no peripheral edema and pulses are symmetrical and equal. Abdomen: The abdomen is soft and non-tender. There are normal bowel sounds heard in all four quadrants and there is no organomegaly palpated. Musculoskeletal: There is no back tenderness noted. Extremities are non-tender with full range of motion. There is good capillary refill. There is no peripheral edema or calf tenderness elicited. Neurological: Patient is alert and oriented to person, place and time. The patient has symmetrical motor strength in all four extremities. Cranial nerves are grossly intact. Deep tendon reflexes are symmetrical and equal in all four extremities. Psychiatric: The patient has an appropriate affect and does not exhibit any anxiety or depression. Triage Information Reviewed: Yes Vital Signs On Initial Exam: Initial Vitals Temp Pulse Resp BP Pulse Ox 98.7 F 101 16 138/82 99 12/05/17 19:19 12/05/17 19:19 12/05/17 19:19 12/05/17 19:19 12/05/17 19:19 Vital Signs Reviewed: Yes Diagnostics - Vital Signs Vital Signs Temp Pulse Resp BP Pulse Ox 12/05/17 19:19 98.7 F 101 16 138/82 99 - Laboratory Lab Results: Lab Results 12/05/17 12/05/17 12/05/17 Range/Units 20:48 20:48 20:48 WBC 7.4 (3.5-10.8) 10^3/ul RBC 4.30 (4.0-5.4) 10^6/ul Hgb 12.5 L (14.0-18.0) g/dl Hct 37 L (42-52) % MCV 87 (80-94) fL MCH 29 (27-31) pg MCHC 34 (31-36) g/dl RDW 16 H (10.5-15) % Plt Count Pending MPV Pending Neut % (Auto) Pending Lymph % (Auto) Pending [place] % (Auto) Pending Eos % (Auto) Pending Baso % (Auto) Pending Absolute Neuts (auto) Pending Absolute Lymphs (auto) Pending Absolute Monos (auto) Pending Absolute Eos (auto) Pending Absolute Basos (auto) Pending Absolute Nucleated RBC Pending Nucleated RBC % Pending Sodium 134 L (139-145) mmol/L Potassium 4.9 (3.5-5.0) mmol/L Chloride 99 L (101-111) mmol/L Carbon Dioxide 26 (22-32) mmol/L Anion Gap 9 (2-11) mmol/L BUN 20 (6-24) mg/dL Creatinine 1.45 H (0.67-1.17) mg/dL Est GFR ( Amer) 63.2 (>60) Est GFR (Non-Af Amer) 49.2 (>60) BUN/Creatinine Ratio 13.8 (8-20) Glucose 198 H (70-100) mg/dL Lactic Acid 1.8 (0.5-2.0) mmol/L Calcium 9.5 (8.6-10.3) mg/dL Total Bilirubin 3.90 H (0.2-1.0) mg/dL AST 171 H (13-39) U/L ALT 128 H (7-52) U/L Alkaline Phosphatase 563 H (34-104) U/L Total Protein 7.0 (6.4-8.9) g/dL Albumin 3.7 (3.2-5.2) g/dL Globulin 3.3 (2-4) g/dL Albumin/Globulin Ratio 1.1 (1-3) Lipase < 10 L (11.0-82.0) U/L Result Diagrams: 12/05/17 20:48 12/05/17 20:48 Lab Statement: Any lab studies that have been ordered have been reviewed, and results considered in the medical decision making process. Re-Evaluation - Re-Evaluation First Eval Re-Evaluation Time: 21:49 Comment: Results discussed. Patient will be discharged to follow up with his oncologist tomorrow. Abdominal Pain Fem Course/Dx - Course Course Of Treatment: Mr. Weaver presents primarily because he had abdominal pain that is not controlled accompanied by N/V. He has had a recurrence of his pancreatic CA and his MD sent him for a CT to diagnose the pain prior to starting therapy again. 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 His pain was out of proportion to his tenderness so I obtained labs including a lactic acid which was normal. He may have some intestinal angina from his SMA lesion but he also has a bilirubin and transaminase elevations that are new from three weeks ago. We talked about admission at this time which would invlove transfer as we have no GI docs. He would prefer to have additional pain and nausea meds for tonight and F/U tomorrow with his oncologist. He is stable for now. - Diagnoses Provider Diagnoses: Pancreatic cancer, Abdominal pain Discharge - Sign-Out/Discharge Documenting (check all that apply): Discharge/Admit/Transfer - Discharge Plan Condition: Stable Disposition: HOME Prescriptions: Ondansetron ODT TAB* [Zofran Odt TAB*] 4 mg PO Q6H PRN #20 tab.odt PRN Reason: Nausea/Vomiting Patient Education Materials: Pancreatic Cancer (DC), Abdominal Pain (ED) Referrals: Kvng Yanez MD [Primary Care Provider] - If Needed Additional Instructions: It is very important that you follow up with your oncologist tomorrow. Return to the emergency department for new or worsening symptoms. - Billing Disposition and Condition Condition: STABLE Disposition: HOME The documentation as recorded by the Arthur calhoun Thomas accurately reflects the service I personally performed and the decisions made by me, Antonino Perez MD.
[2017-12-05 22:08] VITALS: BP 120/71
[2017-12-05 22:35] LABS: ABS Basophils 0 10^3/ul (0-0.2); ABS Eosinophils 0 10^3/ul (0-0.6); ABS Lymphocytes 0.2 10^3/ul (1.0-4.8); ABS Monocytes 0.8 10^3/ul (0-0.8); ABS Neutrophils 6.3 10^3/ul (1.5-7.7); ABS Nucleated RBC 0 10^3/ul; Eosinophil % 0.2 % (0-6); Mean Platelet Volume 9.1 um3 (7.4-10.4); Nucleated Red Blood Cells % 0.1; Platelet Count 83 10^3/ul (150-450)
== END 2017-12-05 22:08 | disposition home or self-care (01) ==
LOC: ED 19:07
DX: C25.9 Malignant neoplasm of pancreas, unspecified (principal); R10.9 Unspecified abdominal pain; R11.2 Nausea with vomiting, unspecified; E11.9 Type 2 diabetes mellitus without complications; Z79.84 Long term (current) use of oral hypoglycemic drugs; I25.10 Atherosclerotic heart disease of native coronary artery without angina pectoris; I11.0 Hypertensive heart disease with heart failure; E78.00 Pure hypercholesterolemia, unspecified; J45.909 Unspecified asthma, uncomplicated; K21.9 Gastro-esophageal reflux disease without esophagitis; Z87.442 Personal history of urinary calculi; Z90.49 Acquired absence of other specified parts of digestive tract; Z88.8 Allergy status to other drugs, medicaments and biological substances; Z87.891 Personal history of nicotine dependence
CPT/HCPCS: 36415; 80053; 83605; 83690; 85025; 85060; 99283; A9270-GY

== ENCOUNTER 2018-01-01 22:09 | Observation (INO) | payer MEDICAID ==
--- OUTSIDE RECORDS SUMMARY | 2018-01-01 22:55 | XMS REPORT ---
:1955 External Reference #:[id number] Author Organization [facility] Address [address] [address] Phone [phone] Care Team Providers Name Role Phone Kvng Yanez MD Primary Care Physician Unavailable Payers Type Date Identification Numbers Payment Provider Subscriber Medicaid Effective: Policy Number: [id number] Medicaid Rojas Weaver 2015 PayID: [id number] [address] [place] [address] Medigap Part B Effective: 2013 Policy Number: [id number] Medicaid Rojas Weaver Expires: 2015 PayID: [id number] [address] [place] [address] Workers Compensation Onset: 2011 Policy Number: Brian Weaver [id number] PayID: [id number] [address] [place] [address] Problems Date Description Provider Status Onset: 04/15/2016 [...] Gomez M.D. Active Onset: 06/21/2011 Lymphedema Josse Goemz M.D. Active Onset: 06/21/2011 Joint effusion of the lower leg Josse Gomez M.D. Active Onset: 07/12/2011 Cervical disc disorder Josse Gomez M.D. Active Onset: 07/12/2011 Shoulder joint pain Josse Gomez M.D. Active Onset: 08/16/2011 Derangement of medial meniscus Josse Gomez M.D. Active Onset: 10/05/2011 Mixed hyperlipidemia Josse Gomez M.D. 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 Cigarette Use Former Cigarette Smoker ETOH Use [...] Form Strength Qnty SIG Indications Ordering Provider Freestyle Lite 12/01/ Active Strips 100uni test up to E11.65 Kvng Test 2018 ts three times Tala Yanez, daily last M.Tala,FACP visit: may alter brand to fit insurance coverage Amitriptyline 09/29/ Active Tablets 10mg 60tabs 1 by mouth Kvng HCL 2018 twice a day Tala Yanez, for 10 days M.Tala,FACP then 2 bid Oxymorphone HCL 09/29/ Active Tablets 7.5mg 60tabs 1 by mouth M54.12 Kvng ER 2018 ER 12HR twice a day Tala Yanez M.D.,FACP M54.2 Farxiga 09/29/2017 Active Tablets 10mg 30tabs 1 by mouth Kvng Edgar every day Sara Yanez,FACP [place] 09/20/2017 Active Tablets 10-325m 120tabs one tab 4 M54 Jed Edgar g times/day .12 Renata, as needed Sara,FACP for pain Spironolactone 06/22/2017 Active Tablets 25-25mg 90tabs 1 by mouth I10 Sahely /Hydrochloroth every Nravaez, DIAMOND SAWER iazide morning BD Insulin 04/25/2017 Active Misc 29G X 150units use up to E11 Jed Edgar Syringe 1/2" 1 five times .65 Renata Safetyglide/1M ML daily as M.D.,FACP L/29G X 1/2" directed Humalog 02/27/2017 Active Solution 100Unit 15ml inject 10 u Kvng Edgar Kwikpen Pen-Inject /ML Am, 10u [place], lunch, 10u M.D.,FACP dinner, and as needed, max 40 unit/day (clarificat ion) Magnesium 02/27/2017 Active Tablets 400mg 60tabs 1 by mouth Kvng Edgar Oxide twice a day Sara Yanez,FACP Simvastatin 11/28/2016 Active Tablets 40mg 90tabs Take One Kvng Edgar Tablet By Renata, Mouth AT M.D.,FACP Bedtime Levemir 04/25/2016 Active Solution 100Unit 45ml 40 units in E11 Jed Edgar Flextouch Pen-Inject /ML the in the .42 [place], morning M.D.,FACP & inject 40 units daily [...] 270tabs Take One [place]-Dana Tartrate And A storm Edgar Half Renata, Tablets M.D.,FAC By Mouth P Two Times A Day BD Pen 01/25/2011 Active Misc 29G X 150units use as E11.65 [place]-Dana Needle/Ultraf 12.7mm directed l Tala ine/29G X with [place], 12.7mm novolog M.D.,FAC and P levimir Aspirin Ec Active Tablets DR 81mg 90tabs 1 tablet E11.65 Unknown Lo-Dose daily. [place] Active Tablets 25mg 120tabs take one Clay-Dana Chloride tablet by storm Edgar mouth Renata, four M.D.,FAC times a P day Metformin HCL Active Tablets 1000mg 180tabs take one E11.42 Clay-Dana tablet by l Tala Yanez, twice a M.D.,FAC day P E11.65 Creon Active Caps [id number] 270caps Take 1 To Kvng Part 3 Capsules Tala Yanez, By Mouth 5 M.D.,FACP Minutes Before A Meal Ciprofloxacin 11/08/2017 - Hx Tablets 500mg 20tabs twice a K5 Josse HCL 11/21/2017 day 7. Pachikara, 31 M.D. Metronidazole 11/08/2017 - Hx Tablets 500mg 30tabs 1 by mouth K5 [place] 11/28/2017 three 7. Pachikara, timses a 31 M.D. day/no alcohol until 5 days after you are done. Hydroxyzine HCL 11/08/2017 - Hx Tablets 10mg 60tabs 1-2 tabs 8 L3 Josse 11/28/2017 hourly/ No 0. Jason, driving 9 M.D. after taking med Medrol 09/07/2017 - Hx Tablets 4mg 1pak medrol S4 Kvng 09/15/2017 dosepack 3. Tala Yanez, as 42 M.D.,FACP directed 2A M54.2 Diclofenac Sodium 08/28/[address] 75mg 40tabs take 1 S43.422A [place]he[place] - tablet twice Narvaez, 09/11/2017 a day with DIAMOND SAWER food [place] 08/28/2017 Hx Tablets 5-325 30tabs 1 tabs three S43.422A [place] - mg times a day Narvaez, 09/20/2017 as needed DIAMOND SAWER pain Marijuana Oil 06/22/2017 Hx 2 puffs Kvng (Dab) - before each Tala Yanez, 09/20/2017 meal, MVenita,FACP vaporized Jardiance 11/28/2016 Hx Tablets 10mg 30tabs 1 by mouth Kvng - every night Tala Yanez, 02/27/2017 M.DJagruti,FACP Amlodipine 11/28/2016 Hx Tablets 2.5mg 90tabs Take One Kvng Besylate - Tablet By Tala Yanez, 12/20/2017 Mouth Every M.D.,FACP Day Humalog Kwikpen 08/29/2016 Hx Solution 100Un 15ml BS 0-150 no E11.42 Kvng - Pen-Inject it/ML units, Tala Yanez, 10/20/2016 151-200=2 M.D.,FACP units, 201-250=4 units, 251-300=6 units, 301-350=8 units > 351 call MD Pat[place] 07/01/2016 Hx Tablets 20mg 7tabs take 1 Kvng - tablet every Tala Yanez, 10/20/2016 morning for M.D.,FACP 1 wk Magnesium Oxide 05/09/2016 Hx Capsules 400mg 60caps by mouth E83.42 Ronka - twice day CLAY Villatoro 07/01/2016 Spironolactone 05/09/2016 Hx Tablets 25mg 30tabs Take One I10 Kvng - Tablet By Tala Yanez, 06/22/2017 Mouth Every M.D.,FACP Day Simvastatin 05/04/2016 Hx Tablets 80mg 90tabs take one [place] - tablet by Jason, 11/28/2016 mouth at M.D. bedtime Humalog Kwikpen 04/25/2016 Hx Solution 100Un 15ml BS 0-150 no E11.42 Josse - Pen-Inject it/ML units, Vikasikara, 05/04/2016 151-200=2 M.D. units, 201-250=4 units, 251-300=6 units, 301-350=8 units > 351 call MD Domingo-Alvino M10 01/05/2016 Hx Tablets ER 10Meq 30tabs 1 by mouth E87.6 Christa - every day Be, 07/01/2016 M.DJagruti Humulin 70/30 12/29/2015 Hx Suspension (70-3 20 units in Christa - 0)100 am and 20 Be 04/25/2016 Unit/ units in pm M.DJagruti ML Augmentin 08/27/2015 Hx Tablets 875-1 20tabs 1 by mouth J20.9 Christa - 25mg 2x per day Be 09/10/2015 MVenita Guaifenesin ER 08/27/2015 Hx Tablets ER 600mg 42tabs 1 by mouth J20.9 Christa - 12HR twice a day Be 12/29/2015 M.D. Mag-200 02/27/2015 Hx Tablets 400mg 30tabs 2 tab po Christa - everyday , 12/29/2015 M.D. Humulin N 70/30 02/16/2015 Hx Supn 100Un Take 10 Adryan Kwikpen - it/ML units sc in [place], DIAMOND SAWER 02/16/2015 the morning and 10 units sc every evening Humulin 7030 02/16/2015 Hx Supn (70-3 6units 15 units sq Christa Kwikpen - 0)100 in morning , 12/29/2015 Unit/ and 15 units M.D. ML sq in evening Novolin 02/12/2015 Hx Suspension (70-3 6vials 10unit sc in 250.00 Christa - 0)100 the morning , 02/16/2015 Unit/ and 10 sc M.D. ML every evening Novolog Flexpen 01/22/2015 Hx Solution 100Un 2units 12 units Christa - Pen-Inject it/ML every meal Lr, 02/12/2015 M.D. Victoza 07/01/2014 Hx Solution 18mg/ 2pen inject 1.2mg 250.00 Christa - Pen-Inject 3ML subcutaneous Lr, 10/28/2014 ly in the M.D. morning Trazodone HCL 07/01/2014 Hx Tablets 50mg 30tabs 1 tab by 780.52 Christa - mouth at [place], 10/28/2014 bedtime as M.D. needed Nitrostat 07/01/2014 Hx Tablets Sub 0.4mg 25tabs one sl q5min Tyree Caraballo - up to 3 Goodrich, 08/27/2015 doses as M.D., needed FACC, FASNC Flonase 06/05/2014 Hx Suspension 50mcg 1units 1 intranasal 493.90 Christa - /Act puff to each 10/28/2014 nostril M.D. daily Ventolin HFA 06/05/2014 Hx Aerosol 108(9 1units 2 puffs by 493.90 Christa - 0Base mouth four Lr, 07/01/2014 ) times a day M.D. mcg/A as needed ct BD Ultra-Fine NDL 05/13/2014 Hx 150unit use as Kvng 12.5TIU62J - s francis Edgar [place], 04/25/2017 with novolog MVenita,FACP and levemir- onlys uses levemir Penicillin V [...] 100mg 20tabs 1 po bid 682.9 Josse Gomez, 12/05/2012 M.D. Doxycycline 12/05/2012 Hx Capsules 100mg 20caps bid po Josse Gomez, 01/28/2013 M.D. Keflex 04/20/2012 Hx Capsules 500mg 28caps 1 po 4 times Gera - per day Donna, 05/07/2012 M.D. Lisinopril 12/06/2011 Hx Tablets 10mg 90tabs 1 po qd Josse Gomez, 03/01/2012 M.DJagruti Levemir Flexpen 10/26/2011 Hx Solution 100Un 30units Inject 45 [place] - Pen-Inject it/ML Units Every Le, 04/25/2016 Morning And M.D. 50 Units In The Evening Hydrochlorothiazi 10/05/2011 Hx Tablets 25mg 90tabs 1 po qd Josse uHi, 10/14/2011 M.D. Naprosyn 08/25/2011 Hx Tablets 500mg 40tabs twice daily Gera - with food x Donna, 10/05/2011 5 days, then M.D. qD prn Furosemide 06/21/2011 Hx Tablets 40mg 30tabs po qam 457.1 [place] - P[place]ikara, 10/05/2011 M.D. Potassium 06/21/2011 Hx Tablets ER 20Meq 30tabs take 1 tab 457.1 [place] Chloride ER - by mouth Pachikara, 10/05/2011 daily M.D. Naproxen 06/07/[address] 375mg 30tabs bid 719.06 Josse Gomez, 07/12/2011 M.D. Zithromax Z-Isaac 06/07/2011 Hx Tablets 250mg 1tabs 2tab today 466.0 [place] - and 1tab Pachikara, 06/21/2011 daily x M.D. 4days Freestyle Lite 05/24/2011 Hx 100unit test up to E11.65 Kvng Test Strip - s three times DJagruti Yanez, 12/01/2017 daily last M.D.,[facility] visit: 8 Accu-Chek Comfort 05/23/2011 Hx Strips 120unit qid and prn 250.00 Josse Curve Test Strips - s Vikasika, 03/01/2012 M.DJagruti Levemir Flexpen 04/20/2011 Hx Solution 100Un 5Vials 40 am 45 pm 250.00 Josse - it/ML Vikasikara, 10/26/2011 M.DJagruti Novolog Flexpen 04/20/2011 Hx Solution 100Un 2units Inject 12 250.00 Christa - Pen-Inject it/ML Units Under Lr, 07/01/2014 The Skin M.D. Before Every Meal Benadryl Allergy 04/13/2011 Hx Capsules 25mg 60caps 2- 4 tabs [place] - for Pachikara, 04/13/2011 allergies M.D. Zolpidem Tartrate 01/19/2011 Hx Tablets 10mg 30tabs 1/2 to 1 tab 780.52 Josse - po qhs prn Pachikara, 04/20/2011 M.D. Nucynta Hx Tablets 100mg 60tabs 1 po q 6hrs Unknown - 06/21/2011 Oxycontin Hx Tablets ER 40mg 60tabs 1 po bid Unknown - 12HR 10/28/2014 Hydrochlorothiazi Hx Capsules 12.5m 90caps 1 po qd Unknown erasmo - g 01/19/2011 Metoprolol Hx Tablets ER 25mg 180tabs 1 po bid Josse Jason, 11/30/2011 M.DJagruti Aspirin Hx Tablets DR 325mg 1 po qd Unknown - 12/21/2011 Famotidine Hx Tablets 40mg 90tabs 1 po qd Josse Jason, 05/07/2012 M.D. Plavix Hx Tablets 75mg 90tabs 1 po qd Josse Jason, 03/16/2012 M.DJagruti Lisinopril Hx Tablets 10mg 45tabs 1/2 tab qd [place] - po [facility], 12/06/2011 M.DJagruti Levemir Flexpen Hx Solution 100Un 5Vials 40 units Josse - it/ML q12h Pachikara, 04/20/2011 M.DJagruti Novolog Flexpen Hx Solution 100Un 1Box 10units subq Josse - it/ML before every Pachikara, 04/20/2011 meal M.D. Percocet Hx Tablets 10-32 60tabs 1 po qid prn Josse - 5mg Vikasikara, 10/05/2011 M.DJagruti Hydrochlorothiazi Hx Capsules 12.5m 30caps 1 po qd Josse [facility] Jason, 09/17/2013 M.DJagruti Nucynta Hx Tablets 100mg 2-4 daily Unknown - 10/28/2014 Lisinopril Hx Tablets 20mg 90tabs Take One [place] - Tablet By Jason, 10/29/2013 Mouth Every M.D. Day Zyrtec Allergy Hx Tablets 10mg 30tabs 1 po qd prn Unknown - 07/01/2014 Simvastatin Hx Tablets 80mg 90tabs Take One [place] - Tablet By Jason, 04/15/2016 Mouth AT M.D. Bedtime Magnesium Oxide Hx Tablets 400mg [...] Tyree Caraballo Regadenoson, 017 Kp, 0.1 MG M.DJagruti, FACC, FASNC Technetium TC Administered Injection Tyree Caraballo 99M 017 Kp TetrofosminSara, FAC, Per Unit Dose FASVA Up To 40 Millicuries Immunizations CPT Code Status Date Vaccine Lot # [id number] Given 06/22/2017 Influenza Virus Vaccine, Quadrivalent, Split, [id number] Preservative Free 15799 Given 05/20/2016 Influenza Virus Vaccine, Quadrivalent, Split, [id number] Preservative Free 02541 Given 05/26/2015 Influenza Virus Vaccine, Quadrivalent, Split, [id number] Preservative Free 01652 Given 10/28/2014 Hepatitis B Vaccine Adult Dosage [id number] 14207 Given 10/28/2014 Pneumococcal Conjugate Vaccine 13 Valent For [id number] Intramuscular Use 34746 Given 06/05/2014 Flu Vaccine Split Virus Preservative Free For [id number] Indiv 3Yr Older 99362 Given 11/21/2013 Hepatitis B Vaccine Adult Dosage [id number] 67477 Given 10/22/2013 Hepatitis B Vaccine Adult Dosage [id number] 89306 Given 07/04/2013 Flu Vaccine Split Virus Preservative Free For [id number] Indiv 3Yr Older 51172 Given 04/23/2012 Influenza Virus 3Yrs & Over 84456 Given 07/12/2011 Influenza Virus 3Yrs & Over 29910 Given 07/12/2011 Influenza Virus 3Yrs & Over [id number] 80133 Given 08/14/2006 Tdap - Tetanus/Diptheria/Acellular Pertussis Vital Signs Date Vital Result Comment 12/20/2017 Weight 272.00 lb Heart Rate 75 /min BP Systolic Sitting 156 mmHg BP Diastolic Sitting 74 mmHg BP Systolic Recheck 98 mmHg BP Diastolic Recheck 60 mmHg Body Temperature 97.2 F O2 % BldC Oximetry 94 % 11/28/2017 Weight 277.00 lb Heart Rate 77 [...] Result H/L Range Note Laboratory test finding 12/05/2017 Lactic Acid 1.8 mmol/L 0.5-2.0 1 Comp Metabolic Panel 12/05/2017 Sodium 134 mmol/L Low 139-145 Potassium 4.9 mmol/L 3.5-5.0 Chloride 99 mmol/L Low 101-111 Co2 Carbon Dioxide 26 mmol/L 22-32 Anion Gap 9 mmol/L 2-11 Glucose 198 mg/dL High 70-100 Blood Urea Nitrogen 20 mg/dL 6-24 Creatinine 1.45 mg/dL High 0.67-1.17 BUN/Creatinine Ratio 13.8 8-20 Calcium 9.5 mg/dL 8.6-10.3 Total Protein 7.0 g/dL 6.4-8.9 Albumin 3.7 g/dL 3.2-5.2 Globulin 3.3 g/dL 2-4 Albumin/Globulin Ratio 1.1 1-3 Total Bilirubin 3.90 mg/dL High 0.2-1.0 Alkaline Phosphatase 563 U/L High 34-104 Alt 128 U/L High 7-52 Ast 171 U/L High 13-39 Egfr Non- 49.2 >60 Egfr 63.2 >60 2 Laboratory test finding 12/05/2017 Lipase < 10 U/L Low 11.0-82.0 CBC Auto Diff 12/05/2017 White Blood Count 7.4 10^3/uL 3.5-10.8 Red Blood Count 4.30 10^6/uL 4.0-5.4 Hemoglobin 12.5 g/dL Low 14.0-18.0 Hematocrit 37 % Low 42-52 Mean Corpuscular Volume 87 fL 80-94 Mean Corpuscular Hemoglobin 29 pg 27-31 Mean Corpuscular HGB Conc 34 g/dL 31-36 Red Cell Distribution Width 16 % High 10.5-15 Platelet Count 83 10^3/uL Low 150-450 Mean Platelet Volume 9.1 um3 7.4-10.4 Large Platelets Present Abs Neutrophils 6.3 10^3/uL 1.5-7.7 Abs Lymphocytes 0.2 10^3/uL Low 1.0-4.8 Abs Monocytes 0.8 10^3/uL 0-0.8 Abs Eosinophils 0 10^3/uL 0-0.6 Abs Basophils 0 10^3/uL 0-0.2 Abs Nucleated RBC 0 10^3/uL Granulocyte % 85.1 % High 38-83 Lymphocyte % 3.0 % Low 25-47 Monocyte % 11.4 % High 0-7 Eosinophil % 0.2 % 0-6 Basophil % 0.3 % 0-2 Nucleated Red Blood Cells % 0.1 Laboratory test finding 12/05/2017 Pathologist Review (SEE NOTE) 3 Comp Metabolic Panel 11/14/2017 Sodium 136 mmol/L [...] Egfr Non- 46.2 >60 Egfr 59.4 >60 4 Laboratory test finding 11/14/2017 Hemoglobin A1c (Glyco 9.6 % High 4.0- 5.6 5 HGB) CBC Auto Diff 11/14/2017 White Blood [...] 9.3 % High Less than 6.0 7 Lipid Profile (Trig/Chol/HDL) 02/17/2017 Triglycerides 71 mg/dL 8 Cholesterol 118 mg/dL 9 HDL Cholesterol 48.8 mg/dL 10 LDL Cholesterol 55 mg/dL 11 CBC Auto Diff 02/17/2017 White Blood Count [...] Egfr Non- 65.1 >60 Egfr 83.7 >60 12 Laboratory test finding 11/28/2016 Hemoglobin A1c 8.0 High 5-7 Laboratory test finding 10/18/2016 Point of Care Glucose 161 mg/dL High 74 -106 13 Laboratory test finding 10/17/2016 Point of Care Glucose 242 mg/dL High 74 -106 14 Laboratory test finding 10/17/2016 Point of Care Glucose 253 mg/dL High 74 -106 15 Laboratory test finding 10/05/2016 Blood Urea Nitrogen 19 mg/dL 6-24 BUN Creatinine 10/05/2016 Creatinine 1.04 mg/dL 0.67-1.17 Egfr Non- 72.6 >60 Egfr 93.4 >60 16 Laboratory test finding 08/29/2016 Hemoglobin A1c 10.0 [...] Egfr Non- 67.3 >60 Egfr 86.6 >60 17 Laboratory test finding 05/24/2016 Magnesium 1.2 mg/dL [...] Lipid Profile (Trig/Chol/HDL) 05/10/2016 Triglycerides 81 mg/dL 18 Cholesterol 105 mg/dL 19 HDL Cholesterol 38.2 mg/dL 20 LDL Cholesterol 51 mg/dL 21 Urine Microalbumin Random 05/10/2016 Urine Creatinine 43.09 [...] Egfr Non- 88.0 >60 Egfr 113.2 >60 22 Laboratory test finding 05/10/2016 Magnesium 1.3 mg/dL Low 1.9-2.7 Iron & Iron Binding Capacity 05/10/2016 Iron 74 g/dL 50-212 Unsaturated Iron Binding 291 g/dL Total Iron Binding Capacity 365 g/dL 250-450 % Iron Saturation 20 % 15-55 Laboratory test finding 05/10/2016 Ferritin 180.4 ng/mL 24-336 Vitamin B12 1173 pg/mL High 180-914 23 Folic Acid (Folate) > 20.00 ng/mL >3.99 [...] Egfr Non- 85.8 >60 Egfr 110.3 >60 24 CBC Auto Diff 05/10/2016 White Blood Count [...] Egfr Non- 60.4 >60 Egfr 77.7 >60 25 Laboratory test finding 05/03/2016 Troponin-I (TnI) 0.01 ng/mL <0.03 26 TSH (Thyroid Stim Horm) 1.98 mcIU/mL 0.34-5.60 Magnesium 0.9 mg/dL Low 1.9-2.7 27 Hemoglobin A1c (Glyco HGB) 7.5 % High Less than 6.0 28 Laboratory test finding 05/02/2016 Lactic Acid 2.2 mmol/L High 0.5-2.0 29 B-Type Natriuretic Peptide BNP 84 pg/mL 30 Comp Metabolic Panel 05/02/2016 Sodium 135 mmol/L [...] Egfr Non- 48.3 >60 Egfr 62.1 >60 31 Laboratory test finding 05/02/2016 C Reactive Protein 79.19 mg/L High &lt ; 5.00 32 Troponin-I (TnI) 0.01 ng/mL <0.03 33 CBC Auto Diff 05/02/2016 White Blood Count [...] Point of Care 115 mg/dL High 74-106 34 Glucose Laboratory test finding 05/02/2016 Partial Thrombo [...] Egfr Non- 61.6 >60 Egfr 79.2 >60 35 Laboratory test finding 01/09/2016 Lactic Acid 1.4 mmol/L 0.5-2.0 36 CBC Auto Diff 01/09/2016 White Blood Count [...] Egfr Non- 64.7 >60 Egfr 83.1 >60 37 Laboratory test finding 12/29/2015 Hemoglobin A1c 5.3 5-7 Laboratory test finding 09/10/2015 Hemoglobin A1c 9.1 High 5-7 Laboratory test finding 05/26/2015 Hemoglobin A1c 9.1 High 5-7 Laboratory test finding 03/31/2015 Magnesium 1.6 mg/dL Low 1.9-2.7 Laboratory test finding 02/27/2015 Magnesium 1.5 mg/dL Low 1.9-2.7 38 PSA Screening 0.379 ng/mL 0-4.000 39 Urine Microalbumin Random 02/12/2015 Ur Microalbumin (mg/L) [...] Egfr Non- 74.5 >60 Egfr 95.8 >60 40 Lipid Profile (Trig/Chol/HDL) 01/26/2015 Triglycerides 64 mg/dL 41 Cholesterol 97 mg/dL 42 HDL Cholesterol 41.7 mg/dL 43 LDL Cholesterol 43 mg/dL 44 Laboratory test 01/26/2015 Hemoglobin A1c 11.7 % High Less than 45 finding (Glyco HGB) 6.0 Laboratory test 10/28/2014 Hemoglobin A1c 8.9 High 5-7 finding Laboratory test 06/05/2014 Hemoglobin A1c 7.5 High 5-7 finding Laboratory test 02/24/2014 Hemoglobin A1c 7.7 % High Less than 46, 47 finding 6.0 Urine Microalbumin 02/24/2014 Ur Microalbumin 191.0 mg/dL <30 46, 48 Random (mg/L) Urine Creatinine 164.49 mg/dL 46 Urine Microalbumin/Creatinine 116.1 High Less Than 31 46 Lipid Profile (Trig/Chol/HDL) 02/24/2014 Triglycerides 87 mg/dL 46, 49 Cholesterol 100 mg/dL 46, 50 HDL Cholesterol 40.2 mg/dL 46, 51 LDL Cholesterol 42 mg/dL 46, 52 Laboratory test finding 11/21/2013 Hemoglobin A1c 7.7 [...] Egfr Non- 86.7 >60 Egfr 111.5 >60 53 Laboratory test finding 09/19/2013 Troponin I 0.01 ng/mL 0-0.06 54 Laboratory test finding 05/28/2013 Hemoglobin A1c 6.6 [...] test 04/22/2013 Methylmalonic Acid 0.22 nmol/mL <=0.40 55 finding Laboratory test 01/28/2013 Hemoglobin A1c 8.5 High 5-7 finding Laboratory test 01/22/2013 Lyme Disease Serology Negative Negative 56 finding Lipid Profile 01/22/2013 Triglycerides 65 mg/dL 40-200 (Trig/Chol/HDL) Cholesterol 108 mg/dL Less than 200 HDL Cholesterol 40 mg/dL 40-60 57 Cholesterol/HDL Ratio 2.7 Average 1-4.44 LDL Cholesterol 55.0 Less Than 100 58 Comp Metabolic Panel 01/22/2013 Sodium 139 mmol/L [...] Egfr Non- 68.8 >60 Egfr 88.4 >60 59 Urine Microalbumin Random 01/22/2013 Ur Microalbumin (mg/L) 548.0 mg/L 60 Urine Creatinine 175.5 mg/dL Urine Microalbumin/Creatinine 312.3 [...] Hepatitis B Core IgM Nonreactive Nonreactive 61 finding Hepatitis C Antibody Nonreactive Nonreactive 62 Hepatitis B [place] AB 06/01/2012 Hepatitis B Surface AB Nonreactive Nonreactive Titer Hep B Surf AB Index 0.13 63 Laboratory test finding 06/01/2012 Hepatitis B Surface Nonreactive Nonreactive 64 Antigen Immunofixation (Electro) 06/01/2012 Albumin (Pep) 3.28 [...] 6.2 GM/DL 6.2-8.1 Spep Comments (SEE NOTE) 65 Serum Immunofixation (SEE NOTE) 66 Oncology CBC Manual Diff 06/01/2012 White Blood [...] 1.9 1-3 Total Bilirubin 0.6 mg/dL 0.1-1.0 67 Direct Bilirubin 0.1 mg/dL 0.1-0.5 Indirect Bilirubin [...] 180-914 Folic Acid 23.9 NG/ML See Below 68 CBC No Diff 03/30/2012 White Blood Count [...] mmol/L 22-32 Anion Gap 6.0 mmol/L 2-11 69 Glucose 151 mg/dL High 70-100 BUN 21 mg/dL 6-24 Creatinine 1.0 mg/dL 0.50-1.40 One Over Creatinine 1.00 BUN/Creatinine Ratio 21.0 High 8-20 Calcium 9.1 mg/dL 8.1-9.9 eGFR Non- 77.0 > 60 eGFR 99.0 > 60 70 Protime 03/30/2012 Inr 0.87 Low 0.88-1.13 71 Protime 10.3 SEC 10.3-13.5 72 Laboratory test finding 03/30/2012 PTT (Aptt) 25.4 SEC 25.1-38.5 Laboratory test finding 03/20/2012 Ferritin 59 NG/ML 24-336 Vitamin B12 211 pg/mL 180-914 Folic Acid 15.3 NG/ML See Below 73 Retic Count 03/20/2012 Reticulocyte Count 1.32 % [...] mmol/L 22-32 Anion Gap 7.0 mmol/L 2-11 74 Glucose 111 mg/dL High 70-100 BUN 23 mg/dL 6-24 Creatinine 1.1 mg/dL 0.50-1.40 One Over Creatinine 0.90 BUN/Creatinine Ratio 20.9 High 8-20 Calcium 8.7 mg/dL 8.1-9.9 eGFR Non- 69.0 > 60 eGFR 88.7 > 60 75 CBC With Manual Diff 03/20/2012 White Blood [...] Atypical Lymph 1 % 0-6 Anisocytosis SLIGHT Urine Microalbumin Random 03/01/2012 Microalbumin (MG/L) 247.0 mg/L Urine Creatinine 117.3 mg/dL Nazario Alb/Creatinine Ratio 210.6 UG/MG High Less Than 30 76 Laboratory test finding 03/01/2012 Hemoglobin A1c 7.5 High 5-7 Basic Metabolic Panel 02/03/2012 Sodium 136 mmol/L 135-145 Potassium 4.8 mmol/L 3.5-5.0 Chloride 101 mmol/L 101-111 Co2 (Carbon Dioxide) 29.0 mmol/L 22-32 Anion Gap 6.0 mmol/L 2-11 77 Glucose 307 mg/dL High 70-100 BUN 20 mg/dL 6-24 Creatinine 1.2 mg/dL 0.50-1.40 One Over Creatinine 0.83 BUN/Creatinine Ratio 16.7 8-20 Calcium 8.8 mg/dL 8.1-9.9 eGFR Non- 62.4 > 60 eGFR 80.3 > 60 78 CBC Auto Diff 02/01/2012 White Blood Count [...] 0-0.2 Protime 02/01/2012 Inr 0.87 Low 0.88-1.13 79 Protime 10.3 SEC 10.3-13.5 80 Comp Metabolic Panel 02/01/2012 Sodium 136 mmol/L 135-145 Potassium 4.3 mmol/L 3.5-5.0 Chloride 101 mmol/L 101-111 Co2 (Carbon Dioxide) 29.0 mmol/L 22-32 Anion Gap 6.0 mmol/L 2-11 81 Glucose 95 mg/dL 70-100 BUN 24 mg/dL 6-24 Creatinine 1.3 mg/dL 0.50-1.40 One Over Creatinine 0.76 BUN/Creatinine Ratio 18.5 8-20 Calcium 9.1 mg/dL 8.1-9.9 Total Protein 7.2 GM/DL 6.2-8.1 Albumin 4.0 GM/DL 3.6-5.4 Globulin 3.2 GM/DL 2-4 Albumin/Globulin Ratio 1.3 1-3 Bilirubin Total 0.7 mg/dL 0.4-1.5 82 Alkaline Phosphatase 48 U/L 39-117 Alt (SGPT) 22 U/L 17-63 Ast (Sgot) 29 U/L 12-42 eGFR Non- 56.9 > 60 eGFR 73.2 > 60 83 Laboratory test finding 02/01/2012 Troponin-I 0 NG/ML 0-0.06 84 Laboratory test finding 10/26/2011 Hemoglobin A1c 8.2 High 5-7 Comp Metabolic Panel 10/10/2011 Sodium 141 mmol/L 135-145 Potassium 5.0 mmol/L 3.5-5.0 Chloride 104 mmol/L 101-111 Co2 (Carbon Dioxide) 30.0 mmol/L 22-32 Anion Gap 7.0 mmol/L 2-11 85 Glucose 172 mg/dL High 70-100 BUN 16 mg/dL 6-24 Creatinine 1.0 mg/dL 0.50-1.40 One Over Creatinine 1.00 BUN/Creatinine Ratio 16.0 8-20 Calcium 8.9 mg/dL 8.1-9.9 Total Protein 5.9 GM/DL Low 6.2-8.1 Albumin 3.7 GM/DL 3.6-5.4 Globulin 2.2 GM/DL 2-4 Albumin/Globulin Ratio 1.7 1-3 Bilirubin Total 0.5 mg/dL 0.4-1.5 86 Alkaline Phosphatase 55 U/L 39-117 Alt (SGPT) 18 U/L 17-63 Ast (Sgot) 22 U/L 12-42 eGFR Non- 77.3 > 60 eGFR 99.4 > 60 87 Lipid Profile (Trig/Chol/HDL) 10/10/2011 Triglyceride 63 mg/dL 40-200 Cholesterol 130 mg/dL Less Than 200 88 High Density Lipoprotein 52 mg/dL 40-60 89 Cholesterol/HDL Ratio 2.50 AVERAGE 1-4.97 Low Density Lipoprotein 65 mg/dL Less Than 100 90 Laboratory test finding 04/20/2011 Hemoglobin A1c 7.2 High 5-7 Laboratory test finding 01/19/2011 Hemoglobin A1c 6.8 5-7 1 [facility] Severe Sepsis and Septic Shock Management Bundle Measure requires all lactic acids initially measuring >2.0 mmol/L be repeated. 2 Because ethnic data is not always readily [...] 15-29 5 Kidney failure <15 (or dialysis) 3 Normocytic anemia. Moderate thrombocytopenia. No evidence of a hemolytic process. Reviewed by Erica Mckinley MD 4 Because ethnic data is not always readily [...] 15-29 5 Kidney failure <15 (or dialysis) 5 Therapeutic target for the treatment of diabetes mellitus patients is <7% HBA1C, and in selective patients <6.0%. Please refer to [place] diabetic care guidelines for further information. 6 FASTING 10 HOUR 7 Therapeutic target for the treatment of diabetes Mellitus patients is <7% HBA1C, and in selective patients <6.0%.Please refer to [place] [employer] Diabetic care guidelines for further information. 8 Desirable <150 Borderline high 150-199 High 200-499 Very High >500 9 Desirable <200 Borderline high 200-239 High >239 10 Low <40 Desirable: 40-60 High: >60 11 Desirable: <100 mg/dL Near Optimal: 100-129 mg/dL Borderline High: 130-159 mg/dL High: 160-189 mg/dL Very High: >189 mg/dL 12 Because ethnic data is not always [...] 5 Kidney failure <15 (or dialysis) 13 Chief Learning Officer: [id number] YISEL NÚÑEZ 14 Chief Learning Officer: [id number] YISEL NÚÑEZ 15 Chief Learning Officer: [id number] YISEL LEEIE 16 Because ethnic data is not always readily [...] 15-29 5 Kidney failure <15 (or dialysis) 17 Because ethnic data is not always [...] 5 Kidney failure <15 (or dialysis) 18 Desirable <150 Borderline high 150-199 High 200-499 Very High >500 19 Desirable <200 Borderline high 200-239 High >239 20 Low <40 Desirable: 40-60 High: >60 21 Desirable: <100 mg/dL Near Optimal: 100-129 mg/dL Borderline High: 130-159 mg/dL High: 160-189 mg/dL Very High: >189 mg/dL 22 Because ethnic data is not always [...] 5 Kidney failure <15 (or dialysis) 23 Normal Range 180 to 914 Indeterminate Range 145 to 180 Deficient Range <145 24 Because ethnic data is not always readily [...] 15-29 5 Kidney failure <15 (or dialysis) 25 Because ethnic data is not always readily [...] 15-29 5 Kidney failure <15 (or dialysis) 26 Reference Range and Interpretation: TnI (ng/mL) Interpretation Less Than 0.03 ng/mL Not supportive of diagnosis of DE 0.03 - 0.50 ng/mL Indeterminate: suggest serial studies if clinically indicated. Greater than 0.5 ng/mL Consistent with diagnosis of DE 27 Critical Result M.9 Called to [id number] at: 13:12:04 by:[id number] Read back by:[email or web address] 28 Therapeutic target for the treatment of diabetes Mellitus patients is <7% HBA1C, and in selective patients <6.0%.Please refer to [place] [employer] Diabetic care guidelines for further information. 29 Critical Result LACT:2.2 Called to [id number] at: 22:27:22 by:[id number] Read back by:[id number] [facility] Severe Sepsis and Septic Shock Management Bundle Measure requires all lactic acids initially measuring >2.0 mmol/L be repeated. 30 >100 to <200 pg/mL: likely compensated congestive heart failure (CHF) 200 to 400 pg/mL: likely moderate CHF >400 pg/mL: likely moderate to severe CHF 31 Because ethnic data is not always [...] 5 Kidney failure <15 (or dialysis) 32 Acute inflammation: >10.00 33 Reference Range and Interpretation: TnI (ng/mL) Interpretation Less Than 0.03 ng/mL Not supportive of diagnosis of DE 0.03 - 0.50 ng/mL Indeterminate: suggest serial studies if clinically indicated. Greater than 0.5 ng/mL Consistent with diagnosis of DE 34 Chief Learning Officer: [id number] AMY SANCHEZ 35 Because ethnic data is not always [...] 5 Kidney failure <15 (or dialysis) 36 [facility] Severe Sepsis and Septic Shock Management Bundle Measure requires all lactic acids initially measuring >2.0 mmol/L be repeated. 37 Because ethnic data is not always [...] 5 Kidney failure <15 (or dialysis) 38 [MG] affected by ICTERUS 39 Serum levels of PSA measured using the [employer] DXI Hybritech immunoassay should not be interpreted [...] methods or kits cannot be used interchangeably. 40 Because ethnic data is not always readily [...] 15-29 5 Kidney failure <15 (or dialysis) 41 Desirable <150 Borderline high 150-199 High 200-499 Very High >500 42 Desirable <200 Borderline high 200-239 High >239 43 Low <40 Desirable: 40-60 High: >60 44 Desirable: <100 mg/dL Near Optimal: 100-129 mg/dL Borderline High: 130-159 mg/dL High: 160-189 mg/dL Very High: >189 mg/dL 45 Therapeutic target for the treatment of diabetes Mellitus patients is <7% HBA1C, and in selective patients <6.0%.Please refer to [place] [employer] Diabetic care guidelines for further information. 46 FASTING 12 HOUR 47 Therapeutic target for the treatment of diabetes Mellitus patients is <7% HBA1C, and in selective patients <6.0%.Please refer to [place] [employer] Diabetic care guidelines for further information. 48 Microalbuminuria in a random sample is defined as: Microalbumin/Creatinine ratio of 30-299 ug/mg. 49 Desirable <150 Borderline high 150-199 High 200-499 Very High >500 50 Desirable <200 Borderline high 200-239 High >239 51 Low <40 Desirable: 40-60 High: >60 52 Desirable <100 Near Optimal 100-129 Borderline high 130-159 High 160-189 Very High >189 53 Because ethnic data is not always readily [...] 15-29 5 Kidney failure <15 (or dialysis) 54 Reference Range and Interpretation: TnI (ng/mL) Interpretation Less Than 0.06 ng/mL Not supportive of diagnosis of DE 0.06 - 0.50 ng/mL Indeterminate: suggest serial studies if clinically indicated. Greater than 0.5 ng/mL Consistent with diagnosis of DE 55 Test Performed by: [address] [address] Surgical Physician Assistant: John Cash III, M.D. 56 Serologic response to B. burgdorferi infection is not detected, but cannot rule out early infection during which low or undetectable antibody levels to B. burgdorferi may be present. If clinically indicated, a new serum specimen should be submitted in 7-14 days. Test Performed by: [facility] [address] [place] [address] Surgical Physician Assistant: John Cash III, M.D. 57 HDL Interpretation: Undesirable: High Risk: Less than 40 mg/dL Desirable: Low Risk: Greater than 60 mg/dL 58 LDL Interpretation: Low Risk Optimal Level: LDL Less than 100 mg/dL Near or Above Optimal: LDL 100-129 mg/dL Borderline High Risk: LDL 130-159 mg/dL High Risk: LDL 160-189 mg/dL Very High Risk: LDL Greater than 189 mg/dL 59 Because ethnic data is not always readily [...] 15-29 5 Kidney failure <15 (or dialysis) 60 Microalbuminuria in a random sample is defined as: Microalbumin/Creatinine ratio of 30-299 ug/mg. 61 @Sample frozen by [id number] at 2041 on 06/01/12. 62 @Sample frozen by [id number] at 2041 on 06/01/12. 63 The World Health Organization (WHO) Hepatitis B Immunoglobulin 1st International Reference Preparation (1976): The accepted criteria for immunity to HBV is anti-HBs activity greater than or equal to 10 mIU/mL. An Index Value of 1.00 is equivalent to 10 mIU/mL. Samples with an Index Value of 1.00 or greater are considered reactive (protective) in accordance with the CDC guidelines. 64 @Sample frozen by [id number] at 2041 on 06/01/12. 65 Normal serum electrophoretic pattern. 66 Normal serum immunofixation electrophoretic pattern. No monoclonal protein detected. 67 A metabolite of Naproxen, O-desmethylnaproxen, has been shown to interfere with the Jenlouisa-Amol method for measuring total bilirubin. Samples from patients who have taken Naproxen have shown spurious elevation in total bilirubin levels. 68 Please note: New reference range, effective 08/04/11 [...] 5 Kidney failure <15 (or dialysis) 71 Recommended INR for Patients on Oral Anticoagulants Prophylaxis 2.0 - 3.0 Treatment of thrombosis 2.0 - 3.0 Prevention of embolism 2.0 - 3.0 Prevention of embolism from prosthetic heart valves 2.5 - 3.5 72 DIAGNOSIS,TREATMENT,AND THERAPY MUST BE BASED ON THE INR VALUE ALONE. 73 Please note: New reference range, effective 08/04/11 NORMAL REFERENCE RANGE: GREATER THAN 4.1 NG/ML 74 Anion gap measurement may be of [...] 5 Kidney failure <15 (or dialysis) 76 MICROALBUMINURIA IN A RANDOM SAMPLE IS DEFINED : MICROALBUMIN/CREATININE RATIO OF 30-299 ug/mg. . 77 Anion gap measurement may be of limited value in the presence of any alkalosis, especially in a combined acid base disorder. . 78 Because ethnic data is not always [...] 5 Kidney failure <15 (or dialysis) 79 Recommended INR for Patients on Oral Anticoagulants Prophylaxis 2.0 - 3.0 Treatment of thrombosis 2.0 - 3.0 Prevention of embolism 2.0 - 3.0 Prevention of embolism from prosthetic heart valves 2.5 - 3.5 80 DIAGNOSIS,TREATMENT,AND THERAPY MUST BE BASED ON THE INR VALUE ALONE. 81 Anion gap measurement may be of limited value in the presence of any alkalosis, especially in a combined acid base disorder. . 82 A metabolite of Naproxen, O-desmethylnaproxen, has been shown to interfere with the Jendrassik-Amol method for measuring total bilirubin. Samples from patients who have taken Naproxen have shown spurious elevation in total bilirubin levels. 83 Because ethnic data is not always readily [...] 15-29 5 Kidney failure <15 (or dialysis) 84 New Reference Range and Interpretation effective 05/17/2002 TnI (ng/ml) INTERPRETATION Less Than 0.06 ng/mL NOT SUPPORTIVE OF DIAGNOSIS OF DE 0.06 - 0.50 ng/ml INDETERMINATE: SUGGEST SERIAL STUDIES IF CLINICALLY INDICATED. Greater than 0.5 ng/mL CONSISTENT WITH DIAGNOSIS OF DE . 85 Anion gap measurement may be of limited value in the presence of any alkalosis, especially in a combined acid base disorder. . 86 A metabolite of Naproxen, O-desmethylnaproxen, has been shown to interfere with the Jendrassik-[place] method for measuring total bilirubin. Samples from patients who have taken Naproxen have shown spurious elevation in total bilirubin levels. 87 Because ethnic data is not always readily [...] 15-29 5 Kidney failure <15 (or dialysis) 88 CHOLESTEROL INTERPRETATION: Desirable: Less than 200 MG/DL Borderline-High Risk: 200-239 MG/DL High-Risk: 240 MG/DL and over 89 HDL INTERPRETATION: Undesirable: High Risk: Less than 40 MG/DL Desirable: Low Risk: Greater than 60 MG/DL 90 LDL INTERPRETATION: Low Risk Optimal Level: LDL Less than 100 MG/DL Near or Above Optimal: LDL 100-129 MG/DL Borderline High Risk: LDL 130-159 MG/DL High Risk: LDL 160-189 MG/DL Very High Risk: LDL Greater than 189 MG/DL Procedures Date CPT Code Description Status Comment 11/22/2017 85902 ECHO Transthoracic, Real-Time Completed 2D With Doppler And Color Flow 11/22/2017 51298 ECHO Transthoracic, Real-Time Completed 2D With Doppler And Color Flow 11/04/2016 22278 ECHO Transthoracic, Real-Time Completed 2D With Doppler And Color Flow 10/31/2016 16091 Stress Test Completed 10/31/2016 85763 Myocardial Perfusion Imaging Completed Tomographic (Spect) Multiple Studies 10/21/2016 51115 EKG Tracing & Completed Interpretation 12/11/2015 Diabetic Retinal Eye Exam Completed 08/28/2015 Diabetic Retinal Eye Exam Completed 07/23/2015 Diabetic Retinal Eye Exam Completed 09/14/2014 Colonoscopy Completed intestinal undigested food ? abcess, amato'e esophagus 06/09/2014 43379 Spirometry Incl Graphic Record Completed 05/16/2014 Diabetic Retinal Eye Exam Completed 05/15/2014 Diabetic Retinal Eye Exam Completed Document: 05/15/14 - Consult Ophthalmology/[place] 11/18/2013 Diabetic Retinal Eye Exam Completed 11/08/2013 84050 EKG Tracing & Completed Interpretation 11/04/2013 76606 ECHO Transthoracic, Real-Time Completed 2D With Doppler And Color Flow 03/30/2012 67247 Arthroscopy,Knee,Meniscectomy Completed Media & Lateral 03/30/2012 27665 Arthroscopy,Knee,Meniscectomy Completed Media & Lateral 03/16/2012 08286 EKG Tracing & Completed Interpretation 08/14/2007 Colonoscopy Completed Document: 01/19/11 - History Encounters Type Date Location Provider CPT E/M Dx Office Visit 12/20/2017 12:00p [facility] Internal Medicine Kvng Yanez, [address]452 K83.1 - [place] Alhaji Ruiz,FACP C25.0 M46.1 E11.65 Office Visit 11/28/2017 11:40a [facility] Medicine Kvng Yanez, 99584 R10.812 - Lennie Ruiz,FACP Office Visit 11/21/2017 10:00a [facility] [place] 70082 M54.5 Of Vicenta Mcfarlane MD Z85.07 Office Visit 11/08/2017 9:20a [facility] Internal Josse Gomez, 52873 K57.32 Thomas Hogue M.D. L30.9 M54.5 Office Visit 10/27/2017 9:40a [facility] Internal Kvng Yanez, 69036 M50.122 Medicine - [place] Alhaji Ruiz,FACP E11.65 I10 Office Visit 10/24/2017 9:00a [facility] [place] 41284 M50.122 Of Vicenta Mcfarlane MD Office Visit 09/29/2017 9:40a [facility] Medicine Kvng Yanez, 94219 E11.65 - [place] Alhaji Ruiz,FACP M54.12 Office Visit 09/20/2017 10:50a [facility] Internal Ashely Narvaez, CLAY 25069 M54.12 Medicine - [address] [address] Office Visit 08/28/2017 1:10p [facility] Internal Ashely Narvaez, DIAMOND SAWER 67047 S43.422A Medicine - [address] M54.2 Office Visit 06/22/2017 9:40a [facility] Internal Kvng Yanez, 99427 E11.65 Medicine - [place] Alhaji Ruiz,FACP I10 C25.3 Z23 Office Visit 02/27/2017 8:50a [facility] Medicine Kvng Yanez, 61406 C25.3 - [place] Alhaji Ruiz,FACP E11.65 I10 E83.42 Office Visit 11/28/2016 10:30a [facility] Internal Kvng Yanez, 82924 E11.65 Medicine - [address] M.Tala,FACP I10 C25.3 Office Visit 11/07/2016 10:00a [facility] Goodrich, 65133 I25.10 Vicenta Ruiz, FAC, FASVA Office Visit 10/21/2016 1:30p [facility] [place], 40664 I25.10 Vicenta HUBBARD Edmundssindy Ruiz, [facility], FASNC R94.31 Office Visit 08/29/2016 2:40p [facility] Internal Kvng HerediaJagruti Renata, 95185 E11.649 Medicine - [address] M.Tala,FACP I10 Office Visit 07/01/2016 9:00a [facility] Medicine Kvng HerediaJagruti Renata, 76935 C25.3 - [address] M.Tala,FACP I10 E87.6 E13.9 Office Visit 05/20/2016 9:00a [facility] Internal Kvng HerediaJagruti Renata, 31994 E11.649 Medicine - [address] M.Tala,FACP E87.6 I10 C25.3 Z23 Office Visit 05/09/2016 8:20a [facility] Internal Medicine - Ronak Villatoro, CLAY [address] E87.6 E83.42 I10 Z79.4 Office Visit 05/04/2016 2:46p [facility] Refugio Snow, 93480 E16.2 Assoc,pc PA Hospitalists E87.8 E13.9 Office Visit 05/03/2016 2:46p [facility] Dinorah Goodwin, 45040 E16.2 Assoc,pc DIAMOND SAWER Hospitalists E87.8 E13.9 Office Visit 04/15/2016 1:00p [facility] Internal Josse Gomez M.D. 62969 E78.2 Medicine - [address] C25.3 E11.42 K21.9 Office Visit 01/14/2016 8:00a [facility] Medicine - Christa Lr M.D. 13150 R17 Lennie K86.8 Office Visit 01/05/2016 1:40p [facility] Medicine - Christa Lr M.D. 35411 R17 Jeff E11.8 Office Visit 01/01/2016 12:43p [facility],pc Charo Arnett M.D. 09122 R17 Hospitalists I25.10 E11.8 I10 Office Visit 12/31/2015 12:42p [facility],pc Charo Arnett M.D. 60457 R17 Hospitalists I25.10 E11.8 I10 Office Visit 12/30/2015 12:41p [facility], Charo Arnett M.D. 47410 R17 Hospitalists I25.10 E11.8 I10 Office Visit 12/29/2015 12:40p [facility], Hermelindo Weller, 36313 R17 Hospitalists N.P. I25.10 E11.8 I10 Office Visit 12/29/2015 10:40a [facility] Medicine Christa Lr M.D. 25600 E11.65 - Jeff K52.9 Office Visit 09/10/2015 10:40a [facility] Medicine Christa Lr M.D. 45657 E11.65 - Jeff I73.9 J30.9 Office Visit 08/27/2015 10:00a [facility] Medicine Christa Lr M.D. 26906 E11.65 - Jeff N29 J20.9 H91.93 Office Visit 05/26/2015 10:40a [facility] Medicine Christa Lr M.D. 82776 E11.65 - Jeff Z23 Office Visit 04/07/2015 10:40a [facility] Medicine Christa Lr M.D. 65655 250.02 - Jeff Office Visit 03/06/2015 10:40a [facility] Medicine Christa Lr M.D. 82977 250.02 - Jeff 729.82 593.9 Office Visit 02/12/2015 9:00a [facility] Medicine Christa Lr M.D. 62251 V70.0 - Jeff 272.2 250.00 536.3 729.82 V76.44 250.02 Office Visit 10/28/2014 1:40p [facility] Medicine Christa Lr M.D. 89244 250.00 - Jeff 536.3 272.2 V05.3 V03.82 V58.67 Office Visit 07/01/2014 12:40p [facility] Medicine Christa Lr M.D. 36522 250.00 - Jeff 493.90 536.3 780.52 Office Visit 06/05/2014 1:00p [facility] Medicine Christa Lr M.D. 29778 272.2 - Jeff 250.00 536.3 493.90 v04.81 Office Visit 02/28/2014 9:40a [facility] Medicine Christa Lr M.D. 09270 250.00 - Jeff 272.4 V76.44 Office Visit 11/21/2013 8:40a [facility] Medicine Christa Lr M.D. 42659 250.00 - Jeff v05.3 917.0 Office Visit 10/29/2013 1:40p [facility] Medicine Christa Lr M.D. 49500 917.0 - Jeff 807.00 401.9 250.00 Office Visit 10/22/2013 11:00a [facility] Medicine Christa Lr M.D. 02580 250.02 - Jeff 401.9 917.0 v05.3 Office Visit 10/03/2013 11:20a [facility] Medicine Christa Lr M.D. 59359 401.9 - Jeff 807.00 300.09 Office Visit 09/17/2013 1:30p [facility] Medicine Gina Razo M.D. 20078 401.9 - Jeff 308.3 Office Visit 07/04/2013 11:50a [facility] Medicine Gina Razo, 44235 008.69 - Jeffalmita Ruiz v04.81 Office Visit 05/28/2013 1:20p [facility] Internal Josse Gomez, 65199 250.02 Medicine - Lennie Ruiz 401.9 272.4 278.00 Office Visit 01/28/2013 9:40a [facility] Internal Josse Gomez, 21943 250.02 Medicine - Lennie Ruiz V76.44 401.9 278.00 272.4 V70.0 Office Visit 12/05/2012 11:40a [facility] Medicine Josse Gomez, 19279 682.9 - Jeff Sara 250.02 Office Visit 10/24/2012 9:20a [facility] Internal Josse Gomez, 37316 250.02 Medicine - Lennie Ruiz V76.44 401.9 272.4 278.00 Office Visit 10/12/2012 10:00a [facility], 79735 414.9 Vicenta Ruiz, FACC, FASNC Office Visit 05/07/2012 9:40a [facility] Medicine - Josse Gomez, 45651 250.02 Lennie Ruiz 401.9 272.4 278.00 287.5 530.81 Office Visit 04/23/2012 9:40a [facility] Internal Josse Gomez, 27560 V04.81 Medicine - Lennie Ruiz 285.8 287.5 v04.81 250.02 Office Visit 03/22/2012 9:15a [facility], 51696 719.46 C.MRafael Ruiz Office Visit 03/16/2012 1:15p [facility] Medicine Nathalie Gooden, 09365 717.3 - Jeff N.P. 401.1 272.2 V72.84 250.02 V72.84 Office Visit 03/01/2012 8:30a [facility] Medicine Nathalie Gooden, N.P. 41303 250.02 - Jeff 401.9 272.4 278.00 Office Visit 12/21/2011 2:00p [facility] Internal Josse Gomez, 38852 250.02 Medicine Elzbieta Hogue M.D. Office Visit 11/09/2011 2:00p [facility] Internal Josse Gomez, 32475 250.00 Medicine Elzbieta Hogue M.D. Office Visit 10/26/2011 2:00p [facility] Internal Josse Gomez, 37682 250.00 Medicine - Lennie Ruiz 401.9 272.4 530.85 278.00 Office Visit 10/11/2011 10:00a [facility] M.D. 02718 836.0 C.M.AJagruti Office Visit 10/05/2011 9:40a [facility] Medicine Josse Gomez, 87165 717.3 - Lennie Ruiz Office Visit 08/25/2011 11:30a [facility] M.D. 47495 836.0 C.M.A. Office Visit 08/16/2011 1:00p [facility] Medicine Josse Gomez 80122 717.3 - Lennie Ruiz 722.91 719.41 Office Visit 07/12/2011 11:00a DO Not Use Interventional Radiology Technologist AT [facility], [address] [facility] M.DJagruti 722.91 719.06 719.41 v04.81 Office Visit 06/28/2011 2:40p DO Not Use Interventional Radiology Technologist AT [facility], [address] [facility] M.D. 457.1 Office Visit 06/21/2011 3:00p DO Not Use Interventional Radiology Technologist AT [facility], [address] [facility] M.D. 457.1 719.06 Office Visit 06/07/2011 1:00p DO Not Use Interventional Radiology Technologist AT [facility], [address] [facility] M.D. 466.0 Office Visit 04/20/2011 8:20a DO Not Use Interventional Radiology Technologist AT Josse Gomez M.D. 63578 401.9 [facility] 250.00 272.4 780.52 278.00 530.81 V70.0 Office Visit 01/19/2011 10:40a DO Not Use Interventional Radiology Technologist [place] 83320 401.9 [facility] 250.00 272.4 278.00 530.81 722.93 780.52 Plan of Care Future Appointment(s):02/19/2018 11:40 am - Kvng Yanez M.D.,FACP at [facility] Medicine - [address]01/29/2018 8:40 am - Kvng Yanez M.D.,FACP at [facility] Medicine - [address]12/20/2017 - Kvng Yanez M.D., FACPK83.1 Obstruction of bile ductComments:Discussed discharge summary from recent hospitalization at [facility]. Complete antibiotics as [id number] Malignant neoplasm of head of pancreasComments:Continue with chemo with oncologist in [place] as twljwqiB46.1 Sacroiliitis, not elsewhere classifiedComments:Continue current dosage of medications for pain as sajmawP35.65 Type 2 diabetes mellitus with hyperglycemiaComments:You are meeting goal for blood sugar control. Continue current dosage of medicationsYou are on a moderate-potency statin to prevent new or recurrent heart disease, which is common in diabetics.Goals:Goal Hemoglobin A1c is less than 7.0% in ages 18-74 Goal Hemoglobin A1c is between 7.0% and 8.0% in age over 75 Goal Blood pressure is less than 130/85. Cholesterol should be lowered by a high or moderate-dose statin.
[2018-01-01] MEDS ORDERED: NS 0.9% 1000 ML* 1,000 ML IV ONE (23:52)
[2018-01-02 01:13] LABS: Hematocrit 36 % (42-52); Hemoglobin 12.1 g/dl (14.0-18.0); Mean Corpuscular HGB Conc 33 g/dl (31-36); Mean Corpuscular Hemoglobin 28 pg (27-31); Mean Corpuscular Volume 85 fL (80-94); Mean Platelet Volume 8.6 um3 (7.4-10.4); Platelet Count 77 10^3/ul (150-450); Red Blood Count 4.29 10^6/ul (4.0-5.4); Red Cell Distribution Width 16 % (10.5-15); White Blood Count 5.4 10^3/ul (3.5-10.8)
[2018-01-02 01:29] LABS: Urine Appearance Clear; Urine Blood Negative (Negative); Urine Color Yellow; Urine Ketones Negative (Negative); Urine Protein 1+(30 mg/dL) (Negative); Urine Specific Gravity 1.022 (1.010-1.030); Urine Urobilinogen Negative (Negative)
[2018-01-02 01:34] LABS: Monocytes % 21 % (0-7)
[2018-01-02 01:39] LABS: EGFR Non-African American 45.2 (>60)
[2018-01-02] MEDS ORDERED: NS 0.9% 1000 ML* 1,000 ML IV ONE ×2 (01:57→01:58)
[2018-01-02] MEDS ORDERED: Pantoprazole TAB (NF) 40 MG TAB PO ONE (02:04)
[2018-01-02] MEDS ORDERED: Pantoprazole IV* 40 MG IV ONE ×2 (02:09)
[2018-01-02] MEDS ORDERED: Ondansetron ODT TAB* 4 MG PO ONE (02:10)
--- NOTE | 2018-01-02 02:10 | ED ---
Abdominal Pain/Male - HPI Summary HPI Summary: Complains of constant lower bilateral abdominal pain, persistent N/V, generalized weakness 1 month. Patient has history of pancreatic cancer, just started first dose of second round of chemotherapy last week. History of blood hepatic stent 5 weeks ago. Abdominal pains described as constant, lower bilateral, crampy, stabbing, worse at night, not worse with eating. Denies fever, cough, sore throat, CP, SOB, change in urinary BM. Medical history is hepatic stent, cardiac stents, DM, chronic back pain. States has been prescribed Zofran which does not control nausea very well. [facility] primary providers consider abdominal pain and nausea vomiting to be related to pancreatic cancer. - History of Current Complaint Chief Complaint: EDGeneral Stated Complaint: WEAKNESS Time Seen by Provider: 01/01/18 23:07 Hx Obtained From: Patient Onset/Duration: Gradual Onset, Lasting Weeks Timing: Constant, Intermittent Severity Initially: Moderate Severity Currently: Moderate Pain Intensity: 5 Pain Scale Used: 0-10 Numeric Location: Suprapubic Radiates: No Character: Sharp, Cramping Aggravating Factor(s): Other: Alleviating Factor(s): Nothing - Allergies/Home Medications Allergies/Adverse Reactions: Allergies Allergy/AdvReac Type Severity Reaction Status Date / Time celecoxib [From Celebrex] Allergy Intermediate Swelling Verified 01/01/18 22:29 pregabalin [From Lyrica] Allergy Intermediate Swelling Verified 01/01/18 22:29 quinine Allergy Intermediate Swelling Verified 01/01/18 22:29 Home Medications: Home Medications Creon (NF) 2 cap PO TID AC 01/01/18 [History Confirmed 01/01/18] metFORMIN* 1,000 mg PO BID 01/01/18 [History Confirmed 01/01/18] PMH/Surg Hx/FS Hx/Imm Hx Endocrine/Hematology History: Reports: Hx Diabetes - TYPE 2 Cardiovascular History: Reports: Hx Congestive Heart Failure, Hx Coronary Artery Disease, Hx Hypercholesterolemia, Hx Hypertension - ON MEDS Respiratory History: Reports: Hx Asthma GI History: Reports: Hx Gastroesophageal Reflux Disease, Hx Jaundice - 1960s History: Reports: Hx Kidney Stones, Other Problems/Disorders - kidney doc says kidney fine but pees brown Denies: Hx Renal Disease Musculoskeletal History: Reports: Hx Back Problems - low back pain Sensory History: Reports: Hx Contacts or Glasses - reading glasses at home Opthamlomology History: Reports: Hx Contacts or Glasses - reading glasses at home Psychiatric History: Reports: Other Psychiatric Issues/Disorders - claustrophobic - Cancer History Cancer Type, Location and Year: Pancreatic, Diagnosed in December 2015 Hx Chemotherapy: Yes - Surgical History Surgery Procedure, Year, and Place: back surgery; Right Knee Surgery March 30, 2012, cardiac cath with stents, WHIPPLE PROCEDURE Hx Anesthesia Reactions: No Infectious Disease History: No Infectious Disease History: Denies: Traveled Outside the [place] in Last 30 Days - Family History Known Family History: Positive: None, Cardiac Disease - Father - [place], Diabetes - Mother - DM - Social History Alcohol Use: None Hx Substance Use: No Substance Use Type: Reports: Marijuana, Prescribed Substance Use Comment - Amount & Last Used: oxycontin and nucynta Hx Tobacco Use: Yes Smoking Status (MU): Former Smoker Type: Cigarettes Amount Used/How Often: 1 can a week Have You Smoked in the Last Year: No Review of Systems Constitutional: Negative Eyes: Negative ENT: Negative Cardiovascular: Negative Respiratory: Negative Positive: Abdominal Pain, Vomiting, Nausea Genitourinary: Negative Musculoskeletal: Negative Skin: Negative Neurological: Negative Psychological: Normal All Other Systems Reviewed And Are Negative: Yes Physical Exam - Summary Physical Exam Summary: Mild tenderness to palpation of bilateral lower abdomen. Abdomen exam otherwise benign. Triage Information Reviewed: Yes Vital Signs On Initial Exam: Initial Vitals Pulse BP Pulse Ox 76 79/63 96 01/01/18 22:18 01/01/18 22:18 01/01/18 22:18 Vital Signs Reviewed: Yes Appearance: Positive: Well-Appearing Skin: Positive: Warm Head/Face: Positive: Normal Head/Face Inspection Eyes: Positive: Normal Neck: Positive: Supple Respiratory/Lung Sounds: Positive: Clear to Auscultation Cardiovascular: Positive: Normal Musculoskeletal: Positive: Normal Neurological: Positive: Normal Psychiatric: Positive: Normal AVPU Assessment: Alert - [place] Coma Scale Best Eye Response: 4 - Spontaneous Best Motor Response: 6 - Obeys Commands Best Verbal Response: 5 - Oriented Coma Scale Total: 15 Diagnostics - Vital Signs Vital Signs Temp Pulse Resp BP Pulse Ox 01/02/18 01:17 66 128/74 97 01/02/18 01:00 65 97 01/02/18 00:47 67 129/75 98 01/02/18 00:09 67 96 01/01/18 23:47 63 104/63 93 01/01/18 23:20 71 95 01/01/18 23:17 69 95/57 94 01/01/18 23:00 70 93 01/01/18 22:47 70 87/59 95 01/01/18 22:22 73 104/67 94 01/01/18 22:20 96.8 F 71 16 104/67 96 01/01/18 22:18 76 79/63 96 - Laboratory Lab Results: Lab Results 01/01/18 01/02/18 01/02/18 Range/Units 00:51 00:48 00:51 WBC 5.4 (3.5-10.8) 10^3/ul RBC 4.29 (4.0-5.4) 10^6/ul Hgb 12.1 L (14.0-18.0) g/dl Hct 36 L (42-52) % MCV 85 (80-94) fL MCH 28 (27-31) pg MCHC 33 (31-36) g/dl RDW 16 H (10.5-15) % Plt Count 77 L (150-450) 10^3/ul MPV 8.6 (7.4-10.4) um3 Neut % (Auto) Not Reportable Lymph % (Auto) Not Reportable Crosby % (Auto) Not Reportable Eos % (Auto) Not Reportable Baso % (Auto) Not Reportable Absolute Neuts (auto) Not Reportable Absolute Lymphs (auto) Not Reportable Absolute Monos (auto) Not Reportable Absolute Eos (auto) Not Reportable Absolute Basos (auto) Not Reportable Absolute Nucleated RBC Not Reportable Immature Gran % 14 H (0-9) % Neutrophils % 52 (38-83) % Band Neutrophils % 11 H (0-8) % Lymphocytes % 11 L (25-47) % Reactive Lymphs % 2 (0-6) % Monocytes % 21 H (0-7) % Eosinophils % 0 (0-6) % Basophils % 0 (0-2) % Metamyelocytes % 2 (0-2) % Myelocytes % 1 (0-1) % Nucleated RBC % Not Reportable Abs Neuts (Manual) 2.8 (1.5-7.7) 10^3/ul Abs Lymphs (Manual) 0.6 L (1.0-4.8) 10^3/ul Abs Monocytes (Manual) 1.1 H (0-0.8) 10^3/ul Absolute Eos (Manual) 0 (0-0.6) 10^3/ul Abs Basophils (Manual) 0 (0-0.2) 10^3/ul Toxic Granulation 2+ Normal RBC Morphology Normal (Normal) VBG pH (7.33-7.43) VBG pCO2 (41-51) mmHg VBG pO2 (35-45) mmHg VBG HCO3 (24-28) mmol/L VBG O2 Saturation (70-80) % VBG Base Excess (0-4) Sodium 131 L (139-145) mmol/L Potassium 4.8 (3.5-5.0) mmol/L Chloride 93 L (101-111) mmol/L Carbon Dioxide 28 (22-32) mmol/L Anion Gap 10 (2-11) mmol/L BUN 34 H (6-24) mg/dL Creatinine 1.56 H (0.67-1.17) mg/dL Est GFR ( Amer) 58.1 (>60) Est GFR (Non-Af Amer) 45.2 (>60) BUN/Creatinine Ratio 21.8 H (8-20) Glucose 145 H (70-100) mg/dL Lactic Acid (0.5-2.0) mmol/L Calcium 9.6 (8.6-10.3) mg/dL Total Bilirubin 0.80 (0.2-1.0) mg/dL AST 40 H (13-39) U/L ALT 37 (7-52) U/L Alkaline Phosphatase 170 H (34-104) U/L Troponin I 0.03 (<0.04) ng/mL C-Reactive Protein 2.23 (< 5.00) mg/L Total Protein 6.9 (6.4-8.9) g/dL Albumin 3.7 (3.2-5.2) g/dL Globulin 3.2 (2-4) g/dL Albumin/Globulin Ratio 1.2 (1-3) Lipase < 10 L (11.0-82.0) U/L TSH 1.45 (0.34-5.60) mcIU/mL Free T4 1.23 H (0.61-1.12) ng/dL Free T3 2.80 (2.5-3.9) pg/mL Urine Color Yellow Urine Appearance Clear Urine pH 5.0 (5-9) Ur Specific Sledge 1.022 (1.010-1.030) Urine Protein 1+(30 mg/dl) A (Negative) Urine Ketones Negative (Negative) Urine Blood Negative (Negative) Urine Nitrate Negative (Negative) Urine Bilirubin Negative (Negative) Urine Urobilinogen Negative (Negative) Ur Leukocyte Esterase Negative (Negative) Urine WBC (Auto) Absent (Absent) Urine RBC (Auto) Absent (Absent) Urine Bacteria Absent (Absent) Hyaline Casts Present A (Absent) Urine Glucose 3+(>=500 mg/dl) A (Negative) 01/02/18 01/02/18 Range/Units 00:51 00:51 WBC (3.5-10.8) 10^3/ul RBC (4.0-5.4) 10^6/ul Hgb (14.0-18.0) g/dl Hct (42-52) % MCV (80-94) fL MCH (27-31) pg MCHC (31-36) g/dl RDW (10.5-15) % Plt Count (150-450) 10^3/ul MPV (7.4-10.4) um3 Neut % (Auto) Lymph % (Auto) Crosby % (Auto) Eos % (Auto) Baso % (Auto) Absolute Neuts (auto) Absolute Lymphs (auto) Absolute Monos (auto) Absolute Eos (auto) Absolute Basos (auto) Absolute Nucleated RBC Immature Gran % (0-9) % Neutrophils % (38-83) % Band Neutrophils % (0-8) % Lymphocytes % (25-47) % Reactive Lymphs % (0-6) % Monocytes % (0-7) % Eosinophils % (0-6) % Basophils % (0-2) % Metamyelocytes % (0-2) % Myelocytes % (0-1) % Nucleated RBC % Abs Neuts (Manual) (1.5-7.7) 10^3/ul Abs Lymphs (Manual) (1.0-4.8) 10^3/ul Abs Monocytes (Manual) (0-0.8) 10^3/ul Absolute Eos (Manual) (0-0.6) 10^3/ul Abs Basophils (Manual) (0-0.2) 10^3/ul Toxic Granulation Normal RBC Morphology (Normal) VBG pH 7.40 (7.33-7.43) VBG pCO2 47 (41-51) mmHg VBG pO2 21 L (35-45) mmHg VBG HCO3 26.3 (24-28) mmol/L VBG O2 Saturation 38.4 L (70-80) % VBG Base Excess 3.6 (0-4) Sodium (139-145) mmol/L Potassium (3.5-5.0) mmol/L Chloride (101-111) mmol/L Carbon Dioxide (22-32) mmol/L Anion Gap (2-11) mmol/L BUN (6-24) mg/dL Creatinine (0.67-1.17) mg/dL Est GFR ( Amer) (>60) Est GFR (Non-Af Amer) (>60) BUN/Creatinine Ratio (8-20) Glucose (70-100) mg/dL Lactic Acid 3.8 H* (0.5-2.0) mmol/L Calcium (8.6-10.3) mg/dL Total Bilirubin (0.2-1.0) mg/dL AST (13-39) U/L ALT (7-52) U/L Alkaline Phosphatase (34-104) U/L Troponin I (<0.04) ng/mL C-Reactive Protein (< 5.00) mg/L Total Protein (6.4-8.9) g/dL Albumin (3.2-5.2) g/dL Globulin (2-4) g/dL Albumin/Globulin Ratio (1-3) Lipase (11.0-82.0) U/L TSH (0.34-5.60) mcIU/mL Free T4 (0.61-1.12) ng/dL Free T3 (2.5-3.9) pg/mL Urine Color Urine Appearance Urine pH (5-9) Ur Specific Sledge (1.010-1.030) Urine Protein (Negative) Urine Ketones (Negative) Urine Blood (Negative) Urine Nitrate (Negative) Urine Bilirubin (Negative) Urine Urobilinogen (Negative) Ur Leukocyte Esterase (Negative) Urine WBC (Auto) (Absent) Urine RBC (Auto) (Absent) Urine Bacteria (Absent) Hyaline Casts (Absent) Urine Glucose (Negative) Result Diagrams: 01/01/18 00:51 01/02/18 00:51 Lab Statement: Any lab studies that have been ordered have been reviewed, and results considered in the medical decision making process. - EKG 1 Cardiac Rate: NL EKG Rhythm: Sinus Rhythm ST Segment: Non-Specific Ectopy: None EKG Interpretation: RBBB Abdominal Pain Fem Course/Dx - Diagnoses Provider Diagnoses: Nausea & vomiting, Abdominal pain, Pancreatic cancer - Provider Notifications Discussed Care Of Patient With: Flex Weller Instructed by Provider To: Admit As Inpatient Discharge - Sign-Out/Discharge Documenting (check all that apply): Discharge/Admit/Transfer Signing out patient TO: Miguel Phillip - Discharge Plan Condition: Stable Disposition: ADMITTED TO [facility] Referrals: Kvng Yanez MD [Primary Care Provider] - - Billing Disposition and Condition Condition: STABLE Disposition: [facility]
[2018-01-02] MEDS ORDERED: Morphine VIAL* 10 MG/ML 1 ML VIAL IV ONE (02:20)
[2018-01-02] MEDS ORDERED: Morphine VIAL* 4 MG/ML VIAL (1 ml vial) IV ONE ×2 (02:38)
[2018-01-02] MEDS ORDERED: HYDROmorphone INJ* 2 MG/ML CARPUJECT SYRINGE IV SLOW PU ONE (04:42)
--- NOTE | 2018-01-02 04:49 | ED ---
Progress - Progress Note Progress Note: I supervised the care of physician minister assistant and I performed a history and physical on this patient. History: Patient with metastatic pancreatic cancer with 4-5 weeks of abdominal pain, failure to thrive, decreased appetite. Physical exam: No significant distress but chronically ill-appearing. Abdomen is soft, nontender Plan: Dry and dehydrated requiring IV fluid resuscitation. CT scan performed. There is increasing small amount of ascites on CT scan he has a large amount of solid stool. There is no change in the amount of pneumobilia seen on CT. He will be admitted to the hospitalist service for further. Course/Dx - Diagnoses Provider Diagnoses: Nausea & vomiting, Abdominal pain, Pancreatic cancer, Constipation - Provider Notifications Instructed by Provider To: Admit As Inpatient Discharge - Sign-Out/Discharge Documenting (check all that apply): Discharge/Admit/Transfer - Discharge Plan Condition: Fair Disposition: ADMITTED TO [facility] Referrals: Kvng Yanez MD [Primary Care Provider] - - Billing Disposition and Condition Condition: FAIR Disposition: [facility]P-[facility] [place]
[2018-01-02] MEDS ORDERED: Bisacodyl SUPP* 10 MG SUPP PR PRN (04:50)
[2018-01-02] MEDS ORDERED: Ondansetron 40 MG VIAL* 2 MG/ML 20 ML VIAL IV PRN (04:50)
[2018-01-02] MEDS ORDERED: Bisacodyl SUPP* 10 MG SUPP PR ONE (04:50)
[2018-01-02] MEDS ORDERED: Dextrose 50% Syringe 50 ML* 25 GM/50 ML SYRINGE IV PUSH PRN (04:50)
[2018-01-02] MEDS ORDERED: NS 0.9% 1000 ML* 1,000 ML IV SCH (05:00)
[2018-01-02 06:41] LABS: Hematocrit 34 % (42-52); Hemoglobin 11.5 g/dl (14.0-18.0); Mean Corpuscular HGB Conc 34 g/dl (31-36); Mean Corpuscular Hemoglobin 29 pg (27-31); Mean Corpuscular Volume 85 fL (80-94); Mean Platelet Volume 8.1 um3 (7.4-10.4); Platelet Count 63 10^3/ul (150-450); Red Blood Count 4.03 10^6/ul (4.0-5.4); Red Cell Distribution Width 15 % (10.5-15); White Blood Count 4.1 10^3/ul (3.5-10.8)
[2018-01-02 06:56] LABS: EGFR Non-African American 54.8 (>60)
[2018-01-02 07:29] LABS: ABS Basophils 0 10^3/ul (0-0.2); ABS Eosinophils 0 10^3/ul (0-0.6); ABS Lymphocytes 0.5 10^3/ul (1.0-4.8); ABS Monocytes 0.7 10^3/ul (0-0.8); ABS Neutrophils 2.9 10^3/ul (1.5-7.7)
[2018-01-02 07:33] LABS: Monocytes % 19 % (0-7)
[2018-01-02] MEDS: Insulin LISPRO* 1 UNITS UNIT SUBCUT SCH ×3 (07:43→17:30)
--- NOTE | 2018-01-02 07:58 | RAD ---
HISTORY: Weakness COMPARISONS: May 02, 2016 VIEWS: 4: Frontal dual-energy and lateral views of the chest. FINDINGS: CARDIOMEDIASTINAL SILHOUETTE: The cardiomediastinal silhouette is normal. OBEY: The obey are normal. PLEURA: The costophrenic angles are sharp. No pleural abnormalities are noted. LUNG PARENCHYMA: The lungs are clear. ABDOMEN: The upper abdomen is clear. There is no subphrenic gas. BONES AND SOFT TISSUES: No bone or soft tissue abnormalities are noted. OTHER: A right-sided chest port is noted, with the tip overlying the superior vena cava. IMPRESSION: NO ACTIVE CARDIOPULMONARY DISEASE.
[2018-01-02] MEDS: Heparin VIAL(*) 5000 UNITS/ML VIAL (FIVE THOUSAND) SUBCUT SCH ×3 (08:02→22:07)
[2018-01-02] MEDS: Omeprazole CAP* 20 MG PO SCH (08:30)
[2018-01-02] MEDS: CREON PO SCH ×3 (08:30→16:26)
[2018-01-02] MEDS: Aspirin EC TAB* 81 MG TAB.EC PO SCH (08:31)
[2018-01-02] MEDS: Metoprolol Tartrate TAB* 25 MG PO SCH ×2 (08:31→20:05)
[2018-01-02] MEDS: CMCS:Oxymorphone ER (NF) 5 MG TAB PO SCH ×2 (08:31→22:07)
[2018-01-02] MEDS: Atorvastatin* 20 MG TAB PO SCH (08:31)
--- NOTE | 2018-01-02 08:50 | HP ---
CC: Dr. Yanez* HISTORY AND PHYSICAL: DATE OF ADMISSION: 01/02/18 PRIMARY CARE PROVIDER: Dr. Yanez. ATTENDING PHYSICIAN WHILE IN THE HOSPITAL: Jyoti Fernandez MD * (report being dictated by Flex Weller NP) CHIEF COMPLAINT: Abdominal pain. HISTORY OF PRESENT ILLNESS: Mr. Weaver is a 62-year-old male patient. He carries a history of diabetes. He has a history of pancreatic CA. He is on active chemo through his Oncology in [place], history of CAD, LA, hypertension, and chronic back pain. He presents to the ER today. He states it was about a month to five weeks ago, he was in [place]. He was admitted there, as his stent had become occluded. He was having issues with pain and ultimately had an infection and was on antibiotics and was admitted for IV antibiotics. Basically since then he has been having issues with lower abdominal pain. He was told his primary is going to evaluate him today. They had no real clear cause. He had been having lower abdominal cramping, shooting, stabbing pain with associated nausea, and dry heaving. He has not had anymore associated fever or chills. He has denied having any diarrhea. He says he has had a bowel movement yesterday. He states he has been taking a pain medicine, which has not been helping. He says the food he has not really had an appetite. He has been trying to drink clear liquids. This does not make the pain any worse, but he was concerned because of his discomfort was not getting any better and he said he had been evaluated as it was progressively getting worse over the last 4 to 5 weeks. He denied having any fevers or chills. No chest pain or shortness of breath. Again, the pain is not any worse or better with food. It just has been affecting his appetite and it is mostly right in the lower quadrant. He has no flank pain and he denies having any dysuria, frequency, or urinary symptoms. He came into our ER today, it was noted that his lactic acid was 3.8. It was noted that again he was having significant abdominal discomfort. Also, the patient did complain of the fact that when he changed positions, he noticed that he was very lightheaded and dizzy, which was concerning to him. He came into the ER, was evaluated and there was concern for the abdominal pain, possible dehydration, also an elevated lactic acid, who we were asked to evaluate for admission. PAST MEDICAL HISTORY: Significant for: 1. Pancreatic cancer. 2. Diabetes. 3. CAD. 4. History of LA. 5. Hypertension. 6. Chronic back pain. PAST SURGICAL HISTORY: 1. He has had an L4-5 laminectomy. 2. Knee surgery. 3. Cardiac catheterization x2. 4. He has had a Whipple procedure. 5. He has had a biliary stenting placed. HOME MEDICATIONS: According to the list obtained include: 1. Spironolactone/hydrochlorothiazide one tablet p.o. daily. 2. Creon two capsules p.o. t.i.d. with meals. 3. Metformin 1000 mg p.o. b.i.d. 4. Farxiga 10 mg p.o. daily. 5. Aspirin 81 mg daily. 6. Zocor 40 mg p.o. daily. 7. Opana 7.5 mg p.o. every 12 hours. 8. Prilosec 20 mg daily. 9. Metoprolol 37.5 mg p.o. b.i.d. 10. Lisinopril 40 mg daily. ALLERGIES TO MEDICATIONS: Include CELEBREX, LYRICA, QUININE. FAMILY HISTORY: His mother had a history of diabetes. Father had a history of LA. SOCIAL HISTORY: He is a former smoker and a drinker. He states he used to be an alcoholic. He quit in 1995. He does smoke marijuana occasionally. His surrogate decision maker is his daughter, Allegra. REVIEW OF SYSTEMS: There is no documented fever. He is denying any significant weight change to me. He denies having any double vision. There was no ear discharge. He denies having any rhinorrhea. There was no sore throat. No thyroid enlargement. He denied any chest pain. There is abdominal pain from HPI. There was some nausea with dry heaves, but no vomiting, no dysuria. No frequency. No seizure, no loss of consciousness. No pruritus and no skin ulcerations. Review of 14 systems completed, all others negative. PHYSICAL EXAMINATION GENERAL: At this time, Mr. Weaver is a chronically ill-appearing 62-year-old male patient. He is sitting in the ED stretcher. He does not appear to be in acute distress. VITAL SIGNS: Blood pressure 137/76 with a pulse of 55, respirations of 18, O2 saturation 97%, temperature 96.8. HEENT: Head is atraumatic, normocephalic. Eyes: EOMs are intact. Sclerae are anicteric and not pale. Throat: Oral mucosa appears to be dry. No oropharyngeal erythema. NECK: Supple. LUNGS: Clear to auscultation bilaterally. No wheezes, rales, or rhonchi. HEART: Sounds S1, S2. Regular rate and rhythm. No murmurs, rubs, or gallops. ABDOMEN: Protruded, but it is soft on palpation. Bowel sounds were present. There is tenderness basically in the left lower and right lower quadrants. EXTREMITIES: Pulses were 2+ throughout. He is moving all four extremities with 5/5 strength. NEUROLOGICAL: He is awake, alert, and oriented x3. His tongue is midline. News Producer were equal. No gross focal deficits. SKIN: Grossly intact. DIAGNOSTIC STUDIES/LAB DATA: His labs today revealing a WBC of 5.4, RBC of 4.29, hemoglobin of 12.1, hematocrit 36, and platelet count of 77. His blood gases showed a pH of 7.4, PCO2 of 47, PO2 of 21, this was venous, bicarb of 26. His sodium was 131, potassium was 4.8, chloride of 93, his bicarb 28, BUN 34, creatinine 1.56. His baseline creatinine appears to be 1.3. His glucose is 145 , lactate 3.8, calcium 9.6, total bili 0.8, , alk phos 170. Initial troponin is 0.03, repeat troponin of 0.01. Albumin is 3.7, his lipase is less than 10. TSH is normal. Urine showed 1+ protein, present hyaline cast, and he had 3+ urine glucose. He did have a chest x-ray obtained today. When I reviewed it, I did not appreciate any acute infiltrates. He did have what appeared to be air underneath the right diaphragm, what appears to be contained in the stomach. A CT scan was obtained, impression no change in moderate amount of pneumobilia, pancreatic mass is poorly visualized, increasing small amount of ascites, large amount of solid stool. He did have an EKG obtained today, which does show a right bundle branch block with a left ventricular fascicular block and inverted T-waves in V1 and V2 that has been noted previously along with inversion in lead III, again noted previously. The EKG appeared to be unchanged. Old medical records were reviewed. ASSESSMENT AND PLAN: Mr. Weaver is a complex 62-year-old male patient with multiple medical problems, coming into the ER today with complaints of abdominal discomfort and also dizziness. He will be admitted under observation status for: 1. Abdominal pain, etiology is unclear. There are no obvious acute findings on CT imaging based on the [facility] report. His abdominal exam does appear to be benign now. He is complaining of tenderness. The plan will be to put him on clears, allow for bowel rest, a question of constipation is playing a role on this. I will give him a dose of a suppository to treat his nausea with p.r.n., antiemetics in addition just treat his pain with p.r.n. Dilaudid and we will continue to follow. If it persists, may be consider getting a GI or surgical input. 2. Dizziness, which sounds like it was positional secondary to dehydration. He says when he stood up he felt much worse. I do note that his lactic acid was elevated. I am going to hydrate him and check orthostatics. Place him on telemetry to be safe. 3. Lactic acidosis. I do not see an obvious sign of infection currently. His urine looks okay. Chest x-ray looks okay. His abdomen was just tender and there was no acute CT findings. I will rajput culture him. He has been hydrated and we will repeat lactic and follow. 4. Bandemia. I do note that his bands are 11%, they were 11% two years ago. However, I suspect these are probably elevated. He did have shot of Neulasta just recently about a week ago. I would just monitor him should they continue to increase or he has a fever, then I will have a low threshold for broad- spectrum antibiotics. We are going to hold off and culture him now as he does appear to be hemodynamically stable. 5. Diabetes. I have placed him on a Lispro sliding scale. 6. History of myocardial infarction with coronary artery disease. Beta- nader and aspirin therapy will be continued. The patient is also on a statin. He will continue this. 7. Pancreatic cancer. I am going to get records from his oncology group. We will continue his triage. We will continue to follow. 8. Hypertension. I am just gong to continue the beta-nader for the time being. Holding the lisinopril and hydrochlorothiazide/spironolactone particularly in the setting of acute dehydration. 9. Code status: He wishes to be a DNR. He states he has filled out do not resuscitate, we will try to get that form if possible. 10. Fluid, electrolytes, nutrition include a liquid diet with normal saline as well. 11. DVT prophylaxis. High risk, I have ordered heparin subcu. 12. Code status: DNR. 13. Chronic back pain. Continue medications as prescribed. 14. CAD and history of LA. TIME SPENT: Time spent on the admission was approximately 60 minutes; greater than half the time was spent [id number] with the patient obtaining my history and physical, other half the time was spent going over the plan of care with the patient and implementing plan of care. I did discuss the plan of care with my attending, Dr. Fernandez. She was in agreement. FLEX WELLER, CLAY [id number]/[facility] #: [id number] RAZIA
--- NOTE | 2018-01-02 10:46 | RAD ---
Indication: Pancreatic cancer and treatment with chemotherapy. CT of the abdomen and pelvis was performed after oral contrast administration. No IV contrast was given. Comparison is made with previous exam dated November 29, 2017. The lung bases demonstrate no pleural fluid. Minimal linear atelectasis or scarring is noted in the lung bases. The heart is of normal size without evidence of pericardial effusion. The liver demonstrates normal size. Pneumobilia is noted in the gallbladder as well as in the left lobe of the liver, similar to that seen previously. A common duct stent is noted. There is pancreatic atrophy of the body and tail with pancreatic duct dilatation. There is presumed mass at the head of the pancreas which is not well delineated due to lack of IV contrast. The spleen is normal in size. Bilateral adrenal hyperplasia is noted. The kidneys demonstrate no hydronephrosis. No retroperitoneal lymphadenopathy is noted. No dilated loops of bowel are noted. The colon is filled with stool. CT of the pelvis demonstrates moderate amount of free fluid in the cul-de-sac. Urinary bladder is unremarkable. No dilated loops of bowel are noted. There is a ventral wall hernia containing omentum. There is no evidence of abdominal aortic aneurysm. A small amount of ascites is noted. IMPRESSION: 1. When compared to November 29, 2017, no significant change is noted. Small free fluid is noted in the pelvis. Pancreatic mass with common duct stent in place. 2. Pneumobilia is noted.
--- NOTE | 2018-01-02 13:36 | PN ---
Subjective Date of Service: 01/02/18 Interval History: Stomach feels like "raw meat" No nausea but feels "sick to stomach" Feels weak but was able to walk to bathroom Eating very little Objective Active Medications: Aspirin (Aspirin Ec Tab*) 81 mg PO DAILY [facility] Last Admin: 01/02/18 08:31 Dose: 81 mg Atorvastatin Calcium (Lipitor*) 20 mg PO DAILY [facility] Last Admin: 01/02/18 08:31 Dose: 20 mg Bisacodyl (Dulcolax Supp*) 10 mg GA DAILY PRN PRN Reason: CONSTIPATION Dextrose (D50w Syringe 50 Ml*) 12.5 gm IV PUSH .FOR FS < 60 - SS PRN PRN Reason: FS < 60 Heparin Sodium (Porcine) (Heparin Vial(*)) 5,000 units SUBCUT Q8HR [facility] Last Admin: 01/02/18 13:10 Dose: 5,000 units Hydromorphone HCl (Dilaudid Inj*) 1 mg IV SLOW PU Q4H PRN PRN Reason: PAIN Insulin Human Lispro (Humalog*) 0 units SUBCUT [facility] PRN Reason: Protocol Last Admin: 01/02/18 12:35 Dose: 3 units Metoprolol Tartrate (Lopressor Tab*) 37.5 mg PO BID [facility] Last Admin: 01/02/18 08:31 Dose: 37.5 mg Non-Formulary Medication (Creon (Nf)) 2 cap PO TID [facility] Last Admin: 01/02/18 12:18 Dose: Not Given Omeprazole (Prilosec Cap*) 20 mg PO DAILY@0730 [facility] Last Admin: 01/02/18 08:30 Dose: 20 mg Ondansetron HCl (Zofran 40 Mg Vial*) 4 mg IV Q6H PRN PRN Reason: NAUSEA Last Admin: 01/02/18 12:36 Dose: 4 mg Oxymorphone HCl (Opana Er (Nf)) 5 mg PO BID [facility] Last Admin: 01/02/18 08:31 Dose: 5 mg Vital Signs - 8 hr 01/02/18 01/02/18 01/02/18 05:47 06:09 06:21 Temperature 98.5 F 97.6 F Pulse Rate 68 71 Respiratory 16 15 Rate Blood Pressure 111/65 141/80 135/66 (mmHg) O2 Sat by Pulse 98 99 Oximetry 01/02/18 01/02/18 01/02/18 07:50 08:31 11:08 Temperature 97.7 F Pulse Rate 55 Respiratory 16 16 18 Rate Blood Pressure 111/58 (mmHg) O2 Sat by Pulse 99 Oximetry 01/02/18 01/02/18 12:35 13:13 Temperature 97.9 F Pulse Rate 55 Respiratory 16 Rate Blood Pressure 98/57 102/60 (mmHg) O2 Sat by Pulse 95 Oximetry Oxygen Devices in Use Now: None Appearance: NAD Eyes: No Scleral Icterus, PERRLA Ears/Nose/Mouth/Throat: Clear Oropharnyx, Mucous Membranes Moist Neck: NL Appearance and Movements; NL JVP, Trachea Midline Respiratory: Symmetrical Chest Expansion and Respiratory Effort, Clear to Auscultation Cardiovascular: RRR Abdominal: - - TTP suprapubic, ND, +BS Lymphatic: No Cervical Adenopathy Extremities: - - trace le edema Skin: No Rash or Ulcers Neurological: Alert and Oriented x 3 Result Diagrams: 01/02/18 06:26 01/02/18 06:26 Additional Lab and Data: Lab Results 01/01/18 01/02/18 01/02/18 Range/Units 00:51 00:48 00:51 WBC 5.4 (3.5-10.8) 10^3/ul RBC 4.29 (4.0-5.4) 10^6/ul Hgb 12.1 L (14.0-18.0) g/dl Hct 36 L (42-52) % MCV 85 (80-94) fL MCH 28 (27-31) pg MCHC 33 (31-36) g/dl RDW 16 H (10.5-15) % Plt Count 77 L (150-450) 10^3/ul MPV 8.6 (7.4-10.4) um3 Neut % (Auto) Not Reportable Lymph % (Auto) Not Reportable Benzie % (Auto) Not Reportable Eos % (Auto) Not Reportable Baso % (Auto) Not Reportable Absolute Neuts (auto) Not Reportable Absolute Lymphs (auto) Not Reportable Absolute Monos (auto) Not Reportable Absolute Eos (auto) Not Reportable Absolute Basos (auto) Not Reportable Absolute Nucleated RBC Not Reportable Immature Gran % 14 H (0-9) % Neutrophils % 52 (38-83) % Band Neutrophils % 11 H (0-8) % Lymphocytes % 11 L (25-47) % Reactive Lymphs % 2 (0-6) % Monocytes % 21 H (0-7) % Eosinophils % 0 (0-6) % Basophils % 0 (0-2) % Metamyelocytes % 2 (0-2) % Myelocytes % 1 (0-1) % Nucleated RBC % Not Reportable Abs Neuts (Manual) 2.8 (1.5-7.7) 10^3/ul Abs Lymphs (Manual) 0.6 L (1.0-4.8) 10^3/ul Abs Monocytes (Manual) 1.1 H (0-0.8) 10^3/ul Absolute Eos (Manual) 0 (0-0.6) 10^3/ul Abs Basophils (Manual) 0 (0-0.2) 10^3/ul Toxic Granulation 2+ Normal RBC Morphology Normal (Normal) VBG pH (7.33-7.43) VBG pCO2 (41-51) mmHg VBG pO2 (35-45) mmHg VBG HCO3 (24-28) mmol/L VBG O2 Saturation (70-80) % VBG Base Excess (0-4) Sodium 131 L (139-145) mmol/L Potassium 4.8 (3.5-5.0) mmol/L Chloride 93 L (101-111) mmol/L Carbon Dioxide 28 (22-32) mmol/L Anion Gap 10 (2-11) mmol/L BUN 34 H (6-24) mg/dL Creatinine 1.56 H (0.67-1.17) mg/dL Est GFR ( Amer) 58.1 (>60) Est GFR (Non-Af Amer) 45.2 (>60) BUN/Creatinine Ratio 21.8 H (8-20) Glucose 145 H (70-100) mg/dL Lactic Acid (0.5-2.0) mmol/L Calcium 9.6 (8.6-10.3) mg/dL Total Bilirubin 0.80 (0.2-1.0) mg/dL AST 40 H (13-39) U/L ALT 37 (7-52) U/L Alkaline Phosphatase 170 H (34-104) U/L Troponin I 0.03 (<0.04) ng/mL C-Reactive Protein 2.23 (< 5.00) mg/L Total Protein 6.9 (6.4-8.9) g/dL Albumin 3.7 (3.2-5.2) g/dL Globulin 3.2 (2-4) g/dL Albumin/Globulin Ratio 1.2 (1-3) Lipase < 10 L (11.0-82.0) U/L TSH 1.45 (0.34-5.60) mcIU/mL Free T4 1.23 H (0.61-1.12) ng/dL Free T3 2.80 (2.5-3.9) pg/mL Urine Color Yellow Urine Appearance Clear Urine pH 5.0 (5-9) Ur Specific [place] 1.022 (1.010-1.030) Urine Protein 1+(30 mg/dl) A (Negative) Urine Ketones Negative (Negative) Urine Blood Negative (Negative) Urine Nitrate Negative (Negative) Urine Bilirubin Negative (Negative) Urine Urobilinogen Negative (Negative) Ur Leukocyte Esterase Negative (Negative) Urine WBC (Auto) Absent (Absent) Urine RBC (Auto) Absent (Absent) Urine Bacteria Absent (Absent) Hyaline Casts Present A (Absent) Urine Glucose 3+(>=500 mg/dl) A (Negative) 01/02/18 01/02/18 Range/Units 00:51 00:51 WBC (3.5-10.8) 10^3/ul RBC (4.0-5.4) 10^6/ul Hgb (14.0-18.0) g/dl Hct (42-52) % MCV (80-94) fL MCH (27-31) pg MCHC (31-36) g/dl RDW (10.5-15) % Plt Count (150-450) 10^3/ul MPV (7.4-10.4) um3 Neut % (Auto) Lymph % (Auto) Benzie % (Auto) Eos % (Auto) Baso % (Auto) Absolute Neuts (auto) Absolute Lymphs (auto) Absolute Monos (auto) Absolute Eos (auto) Absolute Basos (auto) Absolute Nucleated RBC Immature Gran % (0-9) % Neutrophils % (38-83) % Band Neutrophils % (0-8) % Lymphocytes % (25-47) % Reactive Lymphs % (0-6) % Monocytes % (0-7) % Eosinophils % (0-6) % Basophils % (0-2) % Metamyelocytes % (0-2) % Myelocytes % (0-1) % Nucleated RBC % Abs Neuts (Manual) (1.5-7.7) 10^3/ul Abs Lymphs (Manual) (1.0-4.8) 10^3/ul Abs Monocytes (Manual) (0-0.8) 10^3/ul Absolute Eos (Manual) (0-0.6) 10^3/ul Abs Basophils (Manual) (0-0.2) 10^3/ul Toxic Granulation Normal RBC Morphology (Normal) VBG pH 7.40 (7.33-7.43) VBG pCO2 47 (41-51) mmHg VBG pO2 21 L (35-45) mmHg VBG HCO3 26.3 (24-28) mmol/L VBG O2 Saturation 38.4 L (70-80) % VBG Base Excess 3.6 (0-4) Sodium (139-145) mmol/L Potassium (3.5-5.0) mmol/L Chloride (101-111) mmol/L Carbon Dioxide (22-32) mmol/L Anion Gap (2-11) mmol/L BUN (6-24) mg/dL Creatinine (0.67-1.17) mg/dL Est GFR ( Amer) (>60) Est GFR (Non-Af Amer) (>60) BUN/Creatinine Ratio (8-20) Glucose (70-100) mg/dL Lactic Acid 3.8 H* (0.5-2.0) mmol/L Calcium (8.6-10.3) mg/dL Total Bilirubin (0.2-1.0) mg/dL AST (13-39) U/L ALT (7-52) U/L Alkaline Phosphatase (34-104) U/L Troponin I (<0.04) ng/mL C-Reactive Protein (< 5.00) mg/L Total Protein (6.4-8.9) g/dL Albumin (3.2-5.2) g/dL Globulin (2-4) g/dL Albumin/Globulin Ratio (1-3) Lipase (11.0-82.0) U/L TSH (0.34-5.60) mcIU/mL Free T4 (0.61-1.12) ng/dL Free T3 (2.5-3.9) pg/mL Urine Color Urine Appearance Urine pH (5-9) Ur Specific [place] (1.010-1.030) Urine Protein (Negative) Urine Ketones (Negative) Urine Blood (Negative) Urine Nitrate (Negative) Urine Bilirubin (Negative) Urine Urobilinogen (Negative) Ur Leukocyte Esterase (Negative) Urine WBC (Auto) (Absent) Urine RBC (Auto) (Absent) Urine Bacteria (Absent) Hyaline Casts (Absent) Urine Glucose (Negative) Assess/Plan/Problems-Billing Assessment: 62 yo M h/o unresectable pancreatic adenocarcinoma s/p chemo/XRT c/b biliary obstruction s/p stenting and obstruction with sludge and tumor debris requiring additional stenting in November in [place] s/p last chemo 12/[address] Mccarthy in [place] now presenting with continued abdominal pain, decreased PO and weakness - Patient Problems (1) Abdominal pain Comment: No e/o biliary obstruction based on labs or CT imaging Pain improved after last chemo 12/21 then gradually worsened until admission. Suspect underlying malignancy contributing I reached out to his incologist but he is out of the office until tomorrow. c/w opana and breakthrough pain meds prn anti emetics advance diet as tolerated IVF gently (2) Diabetes Comment: insulin SS (3) Pancreatic cancer Comment: Dr. Mccarthy is oncologist is [facility] office [phone] I will reach out again tomorrow to discuss current and future care (4) HTN (hypertension) Comment: controlled on metoprolol (5) DVT prophylaxis Comment: heparin sc in preferrence to lovenox given thrombocytopenia
[2018-01-02 14:37] LABS: EGFR Non-African American 57.8 (>60)
[2018-01-02] MEDS: HYDROmorphone INJ* 2 MG/ML CARPUJECT SYRINGE IV SLOW PU PRN ×2 (16:04→19:35)
[2018-01-03] MEDS: Heparin VIAL(*) 5000 UNITS/ML VIAL (FIVE THOUSAND) SUBCUT SCH (05:21)
[2018-01-03 05:41] LABS: Hematocrit 36 % (42-52); Hemoglobin 11.9 g/dl (14.0-18.0); Mean Corpuscular HGB Conc 34 g/dl (31-36); Mean Corpuscular Hemoglobin 28 pg (27-31); Mean Corpuscular Volume 85 fL (80-94); Mean Platelet Volume 8.7 um3 (7.4-10.4); Platelet Count 72 10^3/ul (150-450); Red Blood Count 4.19 10^6/ul (4.0-5.4); Red Cell Distribution Width 16 % (10.5-15); White Blood Count 4.5 10^3/ul (3.5-10.8)
[2018-01-03 05:43] LABS: ABS Basophils 0 10^3/ul (0-0.2); ABS Eosinophils 0.1 10^3/ul (0-0.6); ABS Lymphocytes 0.7 10^3/ul (1.0-4.8); ABS Monocytes 0.6 10^3/ul (0-0.8); ABS Neutrophils 3.1 10^3/ul (1.5-7.7); ABS Nucleated RBC 0 10^3/ul
[2018-01-03 06:08] LABS: Monocytes % 8 % (0-7)
[2018-01-03 07:45] VITALS: BP 105/68
[2018-01-03] MEDS: Atorvastatin* 20 MG TAB PO SCH (08:30)
[2018-01-03] MEDS: Metoprolol Tartrate TAB* 25 MG PO SCH (08:31)
[2018-01-03] MEDS: CREON PO SCH ×2 (08:31→11:43)
[2018-01-03] MEDS: Insulin LISPRO* 1 UNITS UNIT SUBCUT SCH ×2 (08:31→11:43)
[2018-01-03] MEDS: Aspirin EC TAB* 81 MG TAB.EC PO SCH (08:32)
[2018-01-03] MEDS: Omeprazole CAP* 20 MG PO SCH (08:32)
[2018-01-03] MEDS: CMCS:Oxymorphone ER (NF) 5 MG TAB PO SCH (08:33)
[2018-01-03] MEDS ORDERED: Dexamethasone IV* 10 MG in NS 0.9% 50 ML* 50 ML IVPB ONE (10:30)
--- NOTE | 2018-01-04 06:12 | DS ---
CC: Kvng Yanez MD; Dr. Mccarthy * DISCHARGE SUMMARY: DATE OF ADMISSION: 01/02/18 DATE OF DISCHARGE: 01/03/18 PRIMARY CARE PROVIDER: Kvng Yanez MD ONCOLOGIST: Dr. Mccarthy in [facility] in [place]. PRIMARY DIAGNOSIS: Abdominal pain. SECONDARY DIAGNOSES: Include: 1. Unresectable pancreatic cancer. 2. Diabetes. 3. Hypertension. 4. Recent biliary obstruction, status post stenting, complicated by repeat obstruction and repeat stenting in November at [place]. MEDICATIONS AT DISCHARGE: Include: 1. Creon 2 tablets 3 times a day in the evening. 2. Metformin 1000 mg twice daily. 3. Farxiga 10 mg daily. 4. Aspirin 81 mg daily. 5. Zocor 40 mg daily. 6. Opana ER 7.5 mg twice daily. 7. Prilosec 20 mg daily. 8. Metoprolol tartrate 37.5 mg twice daily. Please note the discontinuation of all other antihypertensives. IMAGING PERFORMED DURING THE HOSPITAL STAY: CT abdomen and pelvis without contrast. Impression: When compared to November 2017, no significant changes noted. There is small free fluid in the pelvis. There is pancreatic mass with common duct stent in place. HISTORY OF PRESENT ILLNESS AND HOSPITAL COURSE: This is a 62-year-old man with past medical history of unresectable pancreatic cancer, currently receiving treatment under the care of Dr. Mccarthy in [facility] in [place]. Complicated last 2 months of treatment including biliary obstruction requiring multiple stents at [place], presented to [facility] with abdominal pain, nausea, and vomiting; without evidence of repeat biliary obstruction on labs or imaging. The patient was treated conservatively with IV fluids as well as bowel rest. His diet improved. His nausea and vomiting resolved and his abdominal pain improved as well, back to his baseline. I discussed the care with Dr. Mccarthy who indicated the patient had been of poor compliance, it was difficult to get him in for therapy, although his last chemotherapy approximately 10 days prior did result in some improvement which was thought to be from the Decadron that he received at that time. Dr. Mccarthy did encourage dosing 10 mg of Decadron prior to his discharge which may induce some additional pain relief which I will do. The patient will receive one-time dose of 10 mg of Decadron without any to continue after discharge. The patient's followup appointment with Dr. Mccarthy is tomorrow at 8:30 which I relayed to the patient as he was confused and thought he was missing his appointment today. The patient was advanced to a soft GI diet prior to his discharge. He was encouraged to avoid spicy and fatty food as he was noted to be eating chicken wings and hamburgers during his chemotherapy 10 days prior. The patient acknowledged understanding. There are no complications during the course of this patient's hospital stay. At followup please; 1. Please encourage the patient to follow up with his oncologist. 2. Please evaluate blood pressure control after discontinuation of multiple antihypertensive agents. Evaluate continued blood sugar control. The patient is not being discharged on any continued steroids at this time. 3. No other specific labs or vitals that need followup. Reasons to return to the hospital including but not limited to recurrent or worsening symptoms including worsening abdominal pain, nausea, vomiting, inability to obtain or tolerate medications, fevers, chills, night sweats, chest pain, or shortness of breath, bleeding from any source was discussed with the patient. He acknowledged understanding. TIME SPENT: Greater than 60 minutes was spent on the discharge of the patient, greater than half was spent [id number] with the patient. [id number]/[facility] #: [id number] MTDD
== END 2018-01-03 11:15 | disposition home or self-care (01) ==
LOC: ED 22:09 → MED 01-02 04:45
PROVIDERS: ADMIT Pediatrics; ATTEND Internal Medicine
DX: R10.9 Unspecified abdominal pain (principal); R11.2 Nausea with vomiting, unspecified; C25.9 Malignant neoplasm of pancreas, unspecified; I10 Essential (primary) hypertension; K83.1 Obstruction of bile duct; Z96.89 Presence of other specified functional implants; Z79.82 Long term (current) use of aspirin; E11.9 Type 2 diabetes mellitus without complications; Z79.4 Long term (current) use of insulin
CPT/HCPCS: 36415; 71046; 74176; 80048; 80053; 80076; 81003; 81015; 82803; 83605; 83690; 84439; 84443; 84481; 84484; 85025; 85060; 86140; 87040; 93005; 96374; 96375; 99284; A9270-GY; G0378; J1100; J1170; J1642; J1644; J1815; J2270

== ENCOUNTER 2018-01-13 18:57 | Inpatient (IN) | payer MEDICAID ==
--- OUTSIDE RECORDS SUMMARY | 2018-01-13 19:44 | XMS REPORT ---
:1955 External Reference #:[id number] Author Organization [facility] Address [address] [address] Phone [phone] Care Team Providers Name Role Phone Kvng Yanez MD Primary Care Physician Unavailable Payers Type Date Identification Numbers Payment Provider Subscriber Medicaid Effective: Policy Number: [id number] Medicaid Rojas Weaver 2015 PayID: [id number] [address] [place] [address] Medigap Part B Effective: 2013 Policy Number: [id number] Medicaid Rojas Weaver Expires: 2015 PayID: [id number] [address] [place] [address] Workers Compensation Onset: 2011 Policy Number: Brian Weaver [id number] PayID: [id number] [address] [place] [address] Problems Date Description Provider Status Onset: 04/15/2016 [...] Active Onset: 10/21/2016 [facility] heart disease of [place] Tyree Ilya Goodrich M.D., Active coronary artery w/o ang pctrs [facility] Onset: 10/24/2017 Neck pain Mandy [...] Coronary Artery Disease (CAD) Father due to RI () Mother Diabetes Type II Mother due to Diabetes () - complications Siblings 4 2 now First Brother due to RI () Second Brother due to RI () First Sister Fibromyalgia Second Sister Mental Illness NOS Social History Type Date Description Comments Marital Status Lives With Alone 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 Renata, hours as M.Tala,FACP needed nausea Prochlorperazine 01/09/ Active Tablets 5mg 30tab 1 po tid Kvng Maleate 2018 s prn D. traci Yanez M.D.,FACP Freestyle Lite 12/01/ Active Strips 100un test up to E11.65 Kvng Test 2018 its three D. Renata, times M.D.,FACP daily last visit:11/28 may alter brand to fit insurance coverage Amitriptyline HCL 09/29/ Active Tablets 10mg 60tab 1 by mouth Jed Valles 2017 s twice a D. Renata, day for 10 M.D.,FACP days then 2 bid Oxymorphone HCL ER 09/29/ Active Tablets 7.5mg 60tab 1 by mouth M54.12 Kvng 2017 ER 12HR s twice a D. Renata, day M.D.,FACP M54.2 Farxiga 09/29/2017 Active Tablets 10mg 30tabs 1 by mouth Kvng Edgar every day Sara Yanez,FACP [place] 09/20/2017 Active Tablets 10-325m 120tabs one tab 4 M54 Jed Edgar g times/day .12 Renata, as needed M.D.,FACP for pain BD Insulin 04/25/2017 Active Misc 29G X 150units use up to E11 Jed Edgar Syringe 1/2" 1 five times .65 [place], Safetyglide/1M ML daily as M.D.,FACP L/29G X 1/2" directed Humalog 02/27/2017 Active Solution 100Unit 15ml qac BS Kvng Edgar Kwikpen Pen-Inject /ML 0-150 no [place], units, M.D.,FACP 151-200=2 units, 201-250=4 units, 251-300=6 units, 301-350=8 units > 351 call MD max 40 unit/day Magnesium 02/27/2017 Active Tablets 400mg 60tabs 1 by mouth Kvng Edgar Oxide twice a day Sara Yanez,FACP Simvastatin 11/28/2016 Active Tablets 40mg 90tabs Take One Kvng Edgar Tablet By Renata, Mouth AT M.D.,FACP Bedtime Levemir 04/25/2016 Active Solution 100Unit 45ml 40 units in E11 Jed Edgar Flextouch Pen-Inject /ML the in the .42 [place], morning M.D.,FACP & inject 35 units daily at bedtime E11.65 Fluticasone 09/10/2015 Active Suspension 50mcg/Act 1units 2 sprays J30.9 Christa Propionate each Be, nostril M.D. everyday prn Omeprazole 05/07/[address] 20mg 90caps 1 by K21.9 Christa mouth Be, every day M.D. Metoprolol 11/30/2011 Active Tablets 25mg 270tabs Take One Clay-Dana Tartrate Tablet By l Tlaa Mouth Two [place], Times A M.D.,FAC Day P BD Pen 01/25/2011 Active Misc 29G X 150units use as E11.65 Clay-Dana Needle/Ultraf 12.7mm directed storm Edgar ine/29G X with [place], 12.7mm novolog M.D.,FAC and P levimir Aspirin Ec Active Tablets DR 81mg 90tabs 1 tablet E11.65 Unknown Lo-Dose daily. Bethanechol Active Tablets 25mg 120tabs take one Den Chloride tablet by l Tala mouth Renata, four M.D.,FAC times a P day Metformin HCL Active Tablets 1000mg 180tabs take one E11.42 Clay-Dana tablet by l Tala mouth [place], twice a M.D.,FAC day P E11.65 Creon Active Caps [id number] 270caps Take 1 To Kvgn Part 3 Capsules Tala Yanez, By Mouth 5 M.D.,FACP Minutes Before A Meal Ciprofloxacin 11/08/2017 - Hx Tablets 500mg 20tabs twice a K5 [place] HCL 11/21/2017 day 7. [place]ara, 31 M.D. Metronidazole 11/08/2017 - Hx Tablets 500mg 30tabs 1 by mouth K5 [place] 11/28/2017 three 7. Pachikara, timses a 32 M.D. day/no alcohol until 5 days after you are done. Hydroxyzine HCL 11/08/2017 - Hx Tablets 10mg 60tabs 1-2 tabs 8 L3 [place] 11/28/2017 hourly/ No 0. Jermaine, driving 9 M.D. after taking med Medrol 09/07/2017 - Hx Tablets 4mg 1pak medrol S4 Kvng 09/15/2017 dosepack 3. Tala Yanez, as 42 M.D.,FACP directed 2A M54.2 Diclofenac Sodium 08/28/[address] 75mg 40tabs take 1 S43.422A [place] - tablet twice Narvaez, 09/11/[address] MANAGER food [place] 08/28/2017 Hx Tablets 5-325 30tabs 1 tabs three S43.422A [place] - mg times a day Narvaez, 09/20/[address] MANAGER pain Marijuana Oil 06/22/2017 Hx 2 puffs Kvng (Dab) - before each Tala Yanez, 09/20/2017 meal, M.D.,FACP vaporized Spironolactone/Hy 06/22/2017 Hx Tablets 25-25 90tabs 1 by mouth I10 [place] drochlorothiazide - mg every Narvaez, 01/04/[address] MANAGER Jardiance 11/28/2016 Hx Tablets 10mg 30tabs 1 by mouth Kvng - every night Tala Yanez, 02/27/2017 M.D.,FACP Amlodipine 11/28/2016 Hx Tablets 2.5mg 90tabs Take [...] by mouth E83.42 Ronak - twice day [place]ron[place], ROAD MANAGER 07/01/2016 Spironolactone 05/09/2016 Hx Tablets 25mg 30tabs Take One I10 Kvng - Tablet By Tala Yanez, 06/22/2017 Mouth Every M.D.,FACP Day Simvastatin 05/04/2016 Hx Tablets 80mg 90tabs take one [place] - tablet by Jason, 11/28/2016 mouth at M.D. bedtime Humalog Kwikpen 04/25/2016 Hx Solution 100Un 15ml BS 0-150 no E11.42 [place] - Pen-Inject it/ML units, Vikasika, 05/04/2016 151-200=2 M.D. units, 201-250=4 units, 251-300=6 units, 301-350=8 units > 351 call MD Domingo-Con M10 01/05/2016 Hx Tablets ER 10Meq 30tabs 1 by mouth E87.6 Christa - every day Be, 07/01/2016 M.D. Humulin 70/30 12/29/2015 Hx Suspension (70-3 20 units in Christa - 0)100 am and 20 Be, 04/25/2016 Unit/ units in pm M.D. ML Augmentin 08/27/2015 Hx Tablets 875-1 20tabs 1 by mouth J20.9 Christa - 25mg 2x per day Lr, 09/10/2015 M.D. Guaifenesin ER 08/27/2015 Hx Tablets ER 600mg 42tabs 1 by mouth J20.9 Christa - 12HR twice a day Lr, 12/29/2015 M.D. Mag-200 02/27/2015 Hx Tablets 400mg 30tabs 2 tab po Christa - everyday Lr, 12/29/2015 M.D. Humulin N 70/30 02/16/2015 Hx Supn 100Un Take 10 Adryan Kwikpen - it/ML units sc in [place], ROAD MANAGER 02/16/2015 the morning and 10 units sc [...] NDL 05/13/2014 Hx 150unit use as Kvng 12.5BCV15J - s francis Yanez, 04/25/2017 with novolog M.DJagruti,FACP and levemir- onlys uses levemir Penicillin V 11/07/2013 Hx Tablets 250mg 30tabs 1 po tid Christa Potassium - Be, 11/21/2013 M.D. Lisinopril 10/29/2013 Hx Tablets 40mg 90tabs Take One E11.65 Kvng - Tablet By Tala Yanez, 01/04/2018 Mouth Every M.D.,FACP Day Silvadene 10/22/2013 Hx Cream 1% 400gm topical [...] by mouth Ofe - 25mg every 12 [place], 09/17/2013 hours for 1 M.D. week Zofran 07/04/2013 Hx Tablets 4mg 15tabs take 1 tab 008.69 Gina - by mouth q Razo, 10/03/2013 8h prn as M.D. needed for nausea Doxycycline 12/05/[address] 100mg 20tabs 1 po bid 682.9 [place] Hyclate - Pachikara, 12/05/2012 M.D. Doxycycline 12/05/2012 Hx Capsules 100mg 20caps bid po Josse Hyclate - [place], 01/28/2013 M.DJagruti Keflex 04/20/2012 Hx Capsules 500mg 28caps 1 po 4 times Gera - per day Donna, 05/07/2012 M.DJagruti Lisinopril 12/06/2011 Hx Tablets 10mg 90tabs 1 po qd Josse - [place], 03/01/2012 MVenita Levemir Flexpen 10/26/2011 Hx Solution 100Un 30units Inject 45 Lucho EJagruti - Pen-Inject it/ML Units Every Le, 04/25/2016 Morning And M.DJagruti 50 Units In The Evening Hydrochlorothiazi 10/05/2011 Hx Tablets 25mg 90tabs 1 po qd Josse de - [place], 10/14/2011 MVenita Naprosyn 08/25/2011 Hx Tablets 500mg 40tabs twice daily Gera - with food x Donna, 10/05/2011 5 days, then M.D. qD prn Furosemide 06/21/2011 Hx Tablets 40mg 30tabs po qam 457.1 Josse Beanikara, 10/05/2011 MJagrutiDJagruti Potassium 06/21/2011 Hx Tablets ER 20Meq 30tabs take 1 tab 457.1 [place] Chloride ER - by mouth [place], 10/05/2011 daily M.D. Naproxen 06/07/[address] 375mg 30tabs bid 719.06 [place] - Pachikara, 07/12/2011 M.D. Zithromax Z-Isaac 06/07/2011 Hx Tablets 250mg 1tabs 2tab today 466.0 Josse - and 1tab [place], 06/21/2011 daily x M.D. 4days Freestyle Lite 05/24/2011 Hx 100unit test up to E11.65 Kvng Test Strip - s three times Tala Yanez, 12/01/2017 daily last M.D.,FACP visit: 8 Accu-Chek Comfort 05/23/2011 Hx Strips 120unit qid and prn 250.00 [place] Curve Test Strips - s P[place], 03/01/2012 Sara Levemir Flexpen 04/20/2011 Hx Solution 100Un 5Vials 40 am 45 pm 250.00 [place] - it/ML Pachikara, 10/26/2011 MVenita Novolog Flexpen 04/20/2011 Hx Solution 100Un 2units Inject 12 250.00 Christa - Pen-Inject it/ML Units Under Lr, 07/01/2014 The Skin M.D. Before Every Meal Benadryl Allergy 04/13/2011 Hx Capsules 25mg 60caps 2- 4 tabs [place] - for Pachikara, 04/13/2011 allergies M.D. Zolpidem Tartrate 01/19/2011 Hx Tablets 10mg 30tabs 1/2 to 1 tab 780.52 Josse - po qhs prn Vikasika, 04/20/2011 M.D. Nucynta Hx Tablets 100mg 60tabs 1 po q 6hrs Unknown - 06/21/2011 Oxycontin Hx Tablets ER 40mg 60tabs 1 po bid Unknown - 12HR 10/28/2014 Hydrochlorothiazi Hx Capsules 12.5m 90caps 1 po qd erasmo 01/19/2011 Metoprolol Hx Tablets ER 25mg 180tabs 1 po bid Josse Gomez, 11/30/2011 M.D. Aspirin Hx Tablets DR 325mg 1 po qd Unknown - 12/21/2011 Famotidine Hx Tablets 40mg 90tabs 1 po qd Josse Gomez, 05/07/2012 M.D. Plavix Hx Tablets 75mg 90tabs 1 po qd Josse - Jason, 03/16/2012 M.D. Lisinopril Hx Tablets 10mg 45tabs 1/2 tab qd [place] - guillermina Beanika, 12/06/2011 M.D. Levemir Flexpen Hx Solution 100Un 5Vials 40 units Josse - it/ML q12h [place], 04/20/2011 M.D. Novolog Flexpen Hx Solution 100Un 1Box 10units subq [place] - it/ML before every [place], 04/20/2011 meal M.D. Percocet Hx Tablets 10-32 60tabs 1 po qid prn Josse - 5mg [place], 10/05/2011 M.D. Hydrochlorothiazi Hx Capsules 12.5m 30caps 1 po qd Josse Ortiz, 09/17/2013 M.D. Nucynta Hx Tablets 100mg 2-4 daily Unknown - 10/28/2014 Lisinopril Hx Tablets 20mg 90tabs Take One Josse - Tablet By Jason, 10/29/2013 Mouth Every M.D. Day Zyrtec Allergy Hx Tablets 10mg 30tabs 1 po qd prn Unknown - 07/01/2014 Simvastatin Hx Tablets 80mg 90tabs Take One [place] - Tablet By Jason, 04/15/2016 Mouth AT [...] TC Administered Injection Tyree Caraballo 99M 017 Kp, Tetrofosmin, Sara, FACC, Per Unit Dose FASNC Up To 40 Millicuries Immunizations CPT Code Status Date Vaccine Lot # [id number] Given 06/22/2017 Influenza Virus Vaccine, Quadrivalent, Split, [id number] Preservative Free 77605 Given 05/20/2016 Influenza Virus Vaccine, Quadrivalent, Split, [id number] Preservative Free 75848 Given 05/26/2015 Influenza Virus Vaccine, Quadrivalent, Split, [id number] Preservative Free 58072 Given 10/28/2014 Hepatitis B Vaccine Adult Dosage [id number] 39214 Given 10/28/2014 Pneumococcal Conjugate Vaccine 13 Valent For [id number] Intramuscular Use 47919 Given 06/05/2014 Flu Vaccine Split Virus Preservative Free For [id number] Indiv 3Yr Older 27446 Given 11/21/2013 Hepatitis B Vaccine Adult Dosage [id number] 99721 Given 10/22/2013 Hepatitis B Vaccine Adult Dosage [id number] 16865 Given 07/04/2013 Flu Vaccine Split Virus Preservative Free For [id number] Indiv 3Yr Older 41763 Given 04/23/2012 Influenza Virus 3Yrs & Over 69184 Given 07/12/2011 Influenza Virus 3Yrs & Over 08175 Given 07/12/2011 Influenza Virus 3Yrs & Over [id number] 35935 Given 08/14/2006 Tdap - Tetanus/Diptheria/Acellular Pertussis Vital Signs Date Vital Result Comment 01/09/2018 Height 75 inches 6'3" Weight 257.00 lb Heart Rate 78 /min BP Systolic Sitting 128 mmHg BP Diastolic Sitting 70 mmHg Body Temperature 97.1 F O2 % BldC Oximetry 97 % BMI (Body Mass Index) 32.1 kg/m2 12/20/2017 Weight 272.00 lb Heart Rate 75 [...] Sitting 72 mmHg Body Temperature 98.3 F [facility] BMI (Body Mass Index) 41.8 kg/m2 03/01/2012 [...] Result H/L Range Note Laboratory test finding 01/02/2018 Troponin-I (TnI) 0.01 ng/mL <0.04 Venous Blood Gas 01/02/2018 Venous Blood pH 7.40 7.33-7.43 Venous Pco2 47 mmHg 41-51 Venous Po2 21 mmHg Low 35-45 Venous O2 Saturation 38.4 % Low 70-80 Venous Blood Base Excess 3.6 0-4 1 Venous Bicarbonate Hco3 26.3 mmol/L 24- Urinalysis Profile 01/02/2018 Urine Color Yellow Urine Appearance Clear Urine Specific [place] 1.022 1.010-1.030 Urine pH 5.0 5-9 Urine Urobilinogen Negative Negative Urine Ketones Negative Negative Urine Protein 1+(30 mg/dL) Negative Urine Leukocytes Negative Negative Urine Blood Negative Negative Urine Nitrite Negative Negative Urine Bilirubin Negative Negative Urine Glucose 3+(>=500 mg/dL) Negative Urine White Blood Cell Absent Absent Urine Red Blood Cell Absent Absent Urine Bacteria Absent Absent Urine Hyaline Casts Present Absent Laboratory test finding 01/02/2018 Lactic Acid 3.8 mmol/L High 0.5-2.0 2 CBC Auto Diff 01/01/2018 White Blood Count 5.4 10^3/uL 3.5-10.8 Red Blood Count 4.29 10^6/uL 4.0-5.4 Hemoglobin 12.1 g/dL Low 14.0-18.0 Hematocrit 36 % Low 42-52 Mean Corpuscular Volume 85 fL 80-94 Mean Corpuscular Hemoglobin 28 pg 27-31 Mean Corpuscular HGB Conc 33 g/dL 31-36 Red Cell Distribution Width 16 % High 10.5-15 Platelet Count 77 10^3/uL Low 150-450 Mean Platelet Volume 8.6 um3 7.4-10.4 Manual Differential 01/01/2018 Immature Granulocytes 14 % High 0-9 Neutrophil % 52 % 38-83 Band % 11 % High 0-8 Lymphocytes % 11 % Low 25-47 Monocytes % 21 % High 0-7 Eosinophils % 0 % 0-6 Basophil % 0 % 0-2 Variant Lymph % 2 % 0-6 Metamyelocytes % 2 % 0-2 Myelocytes % 1 % 0-1 Abs Neutrophils 2.8 10^3/uL 1.5-7.7 Abs Lymphocytes 0.6 10^3/uL Low 1.0-4.8 Abs Monocytes 1.1 10^3/uL High 0-0.8 Abs Eosinophils 0 10^3/uL 0-0.6 Abs Basophils 0 10^3/uL 0-0.2 RBC Morphology Normal Normal Toxic Granulation 2+ Comp Metabolic Panel 01/01/2018 Sodium 131 mmol/L Low 139-145 Potassium 4.8 mmol/L 3.5-5.0 Chloride 93 mmol/L Low 101-111 Co2 Carbon Dioxide 28 mmol/L 22-32 Anion Gap 10 mmol/L 2-11 Glucose 145 mg/dL High 70-100 Blood Urea Nitrogen 34 mg/dL High 6-24 Creatinine 1.56 mg/dL High 0.67-1.17 BUN/Creatinine Ratio 21.8 High 8-20 Calcium 9.6 mg/dL 8.6-10.3 Total Protein 6.9 g/dL 6.4-8.9 Albumin 3.7 g/dL 3.2-5.2 Globulin 3.2 g/dL 2-4 Albumin/Globulin Ratio 1.2 1-3 Total Bilirubin 0.80 mg/dL 0.2-1.0 Alkaline Phosphatase 170 U/L High 34-104 Alt 37 U/L 7-52 Ast 40 U/L High 13-39 Egfr Non- 45.2 >60 Egfr 58.1 >60 3 Laboratory test finding 01/01/2018 C Reactive Protein 2.23 mg/L < 5.00 4 Troponin-I (TnI) 0.03 ng/mL <0.04 Free T4 (Free Thyroxine) 1.23 ng/dL High 0.61-1.12 T3 Free 2.80 pg/mL 2.5-3.9 TSH (Thyroid Stim Horm) 1.45 mcIU/mL 0.34-5.60 Lipase < 10 U/L Low 11.0-82.0 5 Comp Metabolic Panel 12/20/2017 Sodium 135 mmol/L Low 139-145 Potassium 4.8 mmol/L 3.5-5.0 Chloride 99 mmol/L Low 101-111 Co2 Carbon Dioxide 25 mmol/L 22-32 Anion Gap 11 mmol/L 2-11 Glucose 123 mg/dL High 70-100 Blood Urea Nitrogen 20 mg/dL 6-24 Creatinine 1.22 mg/dL High 0.67-1.17 BUN/Creatinine Ratio 16.4 8-20 Calcium 9.4 mg/dL 8.6-10.3 Total Protein 6.7 g/dL 6.4-8.9 Albumin 3.7 g/dL 3.2-5.2 Globulin 3.0 g/dL 2-4 Albumin/Globulin Ratio 1.2 1-3 Total Bilirubin 1.00 mg/dL 0.2-1.0 Alkaline Phosphatase 206 U/L High 34-104 Alt 28 U/L 7-52 Ast 46 U/L High 13-39 Egfr Non- 60.0 >60 Egfr 77.2 >60 6 Laboratory test finding 12/20/2017 Hemoglobin A1c (Glyco 8.4 % High 4.0- 5.6 7 HGB) Laboratory test finding 12/05/2017 Pathologist Review (SEE NOTE) 8 CBC Auto Diff 12/05/2017 White Blood Count [...] Cells % 0.1 Laboratory test finding 12/05/2017 Lipase < 10 U/L Low 11.0-82.0 Comp Metabolic Panel 12/05/2017 Sodium 134 mmol/L [...] Egfr Non- 49.2 >60 Egfr 63.2 >60 9 Laboratory test finding 12/05/2017 Lactic Acid 1.8 mmol/L 0.5-2.0 10 Comp Metabolic Panel 11/14/2017 Sodium 136 mmol/L [...] Egfr Non- 46.2 >60 Egfr 59.4 >60 11 Laboratory test finding 11/14/2017 Hemoglobin A1c (Glyco 9.6 % High 4.0- 5.6 12 HGB) CBC Auto Diff 11/14/2017 White Blood [...] finding 06/22/2017 Hemoglobin A1c 7.4 High 5-7 Comp Metabolic Panel 02/17/2017 Sodium 137 mmol/L [...] Egfr Non- 65.1 >60 Egfr 83.7 >60 13 CBC Auto Diff 02/17/2017 White Blood Count [...] Lipid Profile (Trig/Chol/HDL) 02/17/2017 Triglycerides 71 mg/dL 14 Cholesterol 118 mg/dL 15 HDL Cholesterol 48.8 mg/dL 16 LDL Cholesterol 55 mg/dL 17 Laboratory test finding 02/17/2017 Magnesium 1.5 mg/dL Low 1.9-2.7 18 Hemoglobin A1c (Glyco HGB) 9.3 % High Less than 6.0 19 Laboratory test finding 11/28/2016 Hemoglobin A1c 8.0 High 5-7 Laboratory test finding 10/18/2016 Point of Care Glucose 161 mg/dL High 74 -106 20 Laboratory test finding 10/17/2016 Point of Care Glucose 242 mg/dL High 74 -106 21 Laboratory test finding 10/17/2016 Point of Care Glucose 253 mg/dL High 74 -106 22 Creatinine 10/05/2016 Creatinine 1.04 mg/dL 0.67-1.17 Egfr Non- 72.6 >60 Egfr 93.4 >60 23 Laboratory test finding 10/05/2016 Blood Urea Nitrogen 19 mg/dL 6-24 BUN Laboratory test finding 08/29/2016 Hemoglobin A1c 10.0 High 5-7 CBC Auto Diff 05/24/2016 White Blood Count [...] 0-2 Nucleated Red Blood Cells % 0 Laboratory test finding 05/24/2016 Magnesium 1.2 mg/dL Low 1.9-2.7 Comp Metabolic Panel 05/24/2016 Sodium 137 mmol/L [...] Egfr Non- 67.3 >60 Egfr 86.6 >60 24 Lipid Profile (Trig/Chol/HDL) 05/10/2016 Triglycerides 81 mg/dL 25 Cholesterol 105 mg/dL 26 HDL Cholesterol 38.2 mg/dL 27 LDL Cholesterol 51 mg/dL 28 Urine Microalbumin Random 05/10/2016 Urine Creatinine 43.09 [...] Egfr Non- 88.0 >60 Egfr 113.2 >60 29 Laboratory test finding 05/10/2016 Magnesium 1.3 mg/dL Low 1.9-2.7 Iron & Iron Binding Capacity 05/10/2016 Iron 74 g/dL 50-212 Unsaturated Iron Binding 291 g/dL Total Iron Binding Capacity 365 g/dL 250-450 % Iron Saturation 20 % 15-55 Laboratory test finding 05/10/2016 Ferritin 180.4 ng/mL 24-336 Vitamin B12 1173 pg/mL High 180-914 30 Folic Acid (Folate) > 20.00 ng/mL >3.99 [...] Egfr Non- 85.8 >60 Egfr 110.3 >60 31 CBC Auto Diff 05/10/2016 White Blood Count [...] Egfr Non- 60.4 >60 Egfr 77.7 >60 32 Laboratory test finding 05/03/2016 Troponin-I (TnI) 0.01 ng/mL <0.03 33 TSH (Thyroid Stim Horm) 1.98 mcIU/mL 0.34-5.60 Magnesium 0.9 mg/dL Low 1.9-2.7 34 Hemoglobin A1c (Glyco HGB) 7.5 % High Less than 6.0 35 Laboratory test finding 05/02/2016 Lactic Acid 2.2 mmol/L High 0.5-2.0 36 B-Type Natriuretic Peptide BNP 84 pg/mL 37 Comp Metabolic Panel 05/02/2016 Sodium 135 mmol/L [...] Egfr Non- 48.3 >60 Egfr 62.1 >60 38 Laboratory test finding 05/02/2016 C Reactive Protein 79.19 mg/L High &lt ; 5.00 39 Troponin-I (TnI) 0.01 ng/mL <0.03 40 CBC Auto Diff 05/02/2016 White Blood Count [...] of Care Glucose 115 mg/dL High 74-106 41 finding Laboratory test 04/15/2016 Hemoglobin A1c 7.5 [...] finding 01/09/2016 Lactic Acid 1.4 mmol/L 0.5-2.0 42 Comp Metabolic Panel 01/09/2016 Sodium 135 mmol/L [...] Egfr Non- 61.6 >60 Egfr 79.2 >60 43 Laboratory test finding 01/09/2016 Magnesium 1.4 mg/dL [...] Egfr Non- 64.7 >60 Egfr 83.1 >60 44 Laboratory test finding 12/29/2015 Hemoglobin A1c 5.3 5-7 Laboratory test finding 09/10/2015 Hemoglobin A1c 9.1 High 5-7 Laboratory test finding 05/26/2015 Hemoglobin A1c 9.1 High 5-7 Laboratory test finding 03/31/2015 Magnesium 1.6 mg/dL Low 1.9-2.7 Laboratory test finding 02/27/2015 Magnesium 1.5 mg/dL Low 1.9-2.7 45 PSA Screening 0.379 ng/mL 0-4.000 46 Urine Microalbumin Random 02/12/2015 Ur Microalbumin (mg/L) [...] Egfr Non- 74.5 >60 Egfr 95.8 >60 47 Lipid Profile (Trig/Chol/HDL) 01/26/2015 Triglycerides 64 mg/dL 48 Cholesterol 97 mg/dL 49 HDL Cholesterol 41.7 mg/dL 50 LDL Cholesterol 43 mg/dL 51 Laboratory test 01/26/2015 Hemoglobin A1c 11.7 % High Less than 52 finding (Glyco HGB) 6.0 Laboratory test 10/28/2014 Hemoglobin A1c 8.9 High 5-7 finding Laboratory test 06/05/2014 Hemoglobin A1c 7.5 High 5-7 finding Laboratory test 02/24/2014 Hemoglobin A1c 7.7 % High Less than 53, 54 finding 6.0 Urine Microalbumin 02/24/2014 Ur Microalbumin 191.0 mg/dL <30 53, 55 Random (mg/L) Urine Creatinine 164.49 mg/dL 53 Urine Microalbumin/Creatinine 116.1 High Less Than 31 53 Lipid Profile (Trig/Chol/HDL) 02/24/2014 Triglycerides 87 mg/dL 53, 56 Cholesterol 100 mg/dL 53, 57 HDL Cholesterol 40.2 mg/dL 53, 58 LDL Cholesterol 42 mg/dL 53, 59 Laboratory test finding 11/21/2013 Hemoglobin A1c 7.7 High 5-7 Laboratory test finding 09/19/2013 Troponin I 0.01 ng/mL 0-0.06 60 Comp Metabolic Panel 09/19/2013 Sodium 135 mmol/L [...] Egfr Non- 86.7 >60 Egfr 111.5 >60 61 CBC Auto Diff 09/19/2013 White Blood Count [...] Blood Cells % 0.1 Laboratory test finding 05/28/2013 Hemoglobin A1c 6.6 5-7 Laboratory test finding 04/22/2013 Methylmalonic Acid 0.22 nmol/mL <= 0.40 62 CBC With Manual Diff 04/22/2013 White Blood [...] 0-6 RBC Morphology Normal Normal Laboratory test finding 04/22/2013 Ferritin 23 ng/mL Low 24-336 Vitamin B12 217 pg/mL 180-914 Iron & Iron Binding Capacity 04/22/2013 Iron 79 g/dL 45-182 Unsaturated Iron Binding 345 g/dL Total Iron Binding Capacity 424 g/dL 250-450 % Iron Saturation 19 % 15-55 Laboratory test finding 01/28/2013 Hemoglobin A1c 8.5 High 5-7 Laboratory test finding 01/22/2013 Lyme Disease Serology Negative Negative 63 Lipid Profile 01/22/2013 Triglycerides 65 mg/dL 40-200 (Trig/Chol/HDL) Cholesterol 108 mg/dL Less than 200 HDL Cholesterol 40 mg/dL 40-60 64 Cholesterol/HDL Ratio 2.7 Average 1-4.44 LDL Cholesterol 55.0 Less Than 100 65 Comp Metabolic Panel 01/22/2013 Sodium 139 mmol/L [...] Egfr Non- 68.8 >60 Egfr 88.4 >60 66 Urine Microalbumin Random 01/22/2013 Ur Microalbumin (mg/L) 548.0 mg/L 67 Urine Creatinine 175.5 mg/dL Urine Microalbumin/Creatinine 312.3 [...] 0-6 Basophil % 4.1 % High 0-2 Iron & Iron Binding Capacity 06/01/2012 Iron [...] 6.2 GM/DL 6.2-8.1 Spep Comments (SEE NOTE) 68 Serum Immunofixation (SEE NOTE) 69 Laboratory test 06/01/2012 Hepatitis B Surface Nonreactive Nonreactive 70 finding Antigen Laboratory test 06/01/2012 LDH 185 U/L 95-185 finding Liver Function Panel 06/01/2012 Total Protein 5.8 GM/DL Low 6.2-8.1 Albumin 3.8 GM/DL 3.6-5.4 Globulin 2.0 GM/DL 2-4 Albumin/Globulin Ratio 1.9 1-3 Total Bilirubin 0.6 mg/dL 0.1-1.0 71 Direct Bilirubin 0.1 mg/dL 0.1-0.5 Indirect Bilirubin 0.5 mg/dL 0.3-1.0 Alkaline Phosphatase 52 U/L 30-110 Alt 23 U/L 14-54 Ast 30 U/L 12-42 Hepatitis B [place] AB 06/01/2012 Hepatitis B Surface AB Nonreactive Nonreactive Titer Hep B Surf AB Index 0.13 72 Laboratory test finding 06/01/2012 Hepatitis B Core IgM Nonreactive Nonreactive 73 Hepatitis C Antibody Nonreactive Nonreactive 74 Laboratory test finding 05/07/2012 Hemoglobin A1c 7.2 High 5-7 Laboratory test finding 04/23/2012 Ferritin 54 NG/ML 24-336 Iron & Iron Binding Capacity 04/23/2012 Iron Total 82 g/dL 45-182 Unsaturated Iron Binding 326 g/dL Total Iron Binding Capacity 408 g/dL 250-450 % Iron Saturation 20 % 15-55 Vitamin B12 And Folate Serum 04/23/2012 Vitamin B12 313 pg/mL 180-914 Folic Acid 23.9 NG/ML See Below 75 CBC No Diff 03/30/2012 White Blood Count [...] Anion Gap 6.0 mmol/L 2-11 76 Glucose 151 mg/dL High 70-100 BUN 21 mg/dL 6-24 Creatinine 1.0 mg/dL 0.50-1.40 One Over Creatinine 1.00 BUN/Creatinine Ratio 21.0 High 8-20 Calcium 9.1 mg/dL 8.1-9.9 eGFR Non- 77.0 > 60 eGFR 99.0 > 60 77 Protime 03/30/2012 Inr 0.87 Low 0.88-1.13 78 Protime 10.3 SEC 10.3-13.5 79 Laboratory test finding 03/30/2012 PTT (Aptt) 25.4 SEC 25.1-38.5 Basic Metabolic Panel 03/20/2012 Sodium 140 mmol/L 135-145 Potassium 4.7 mmol/L 3.5-5.0 Chloride 103 mmol/L 101-111 Co2 (Carbon Dioxide) 30.0 mmol/L 22-32 Anion Gap 7.0 mmol/L 2-11 80 Glucose 111 mg/dL High 70-100 BUN 23 mg/dL 6-24 Creatinine 1.1 mg/dL 0.50-1.40 One Over Creatinine 0.90 BUN/Creatinine Ratio 20.9 High 8-20 Calcium 8.7 mg/dL 8.1-9.9 eGFR Non- 69.0 > 60 eGFR 88.7 > 60 81 CBC With Manual Diff 03/20/2012 White Blood [...] 180-914 Folic Acid 15.3 NG/ML See Below 82 Retic Count 03/20/2012 Reticulocyte Count 1.32 % 0.5-1.5 Corrected Retic 1.0 % 0.5-1.5 Retic Index 0.7 Mean Retic Volume 99.1 Immature Retic Fraction 0.38 RBC Retic Count 4.19 CUMM Low 4.6-6.2 Hematocrit For Retic Coun 35 % Low 42-52 Laboratory test finding 03/01/2012 Hemoglobin A1c 7.5 High 5-7 Urine Microalbumin Random 03/01/2012 Microalbumin (MG/L) 247.0 mg/L Urine Creatinine 117.3 mg/dL Nazario Alb/Creatinine Ratio 210.6 UG/MG High Less Than 30 83 Basic Metabolic Panel 02/03/2012 Sodium 136 mmol/L 135-145 Potassium 4.8 mmol/L 3.5-5.0 Chloride 101 mmol/L 101-111 Co2 (Carbon Dioxide) 29.0 mmol/L 22-32 Anion Gap 6.0 mmol/L 2-11 84 Glucose 307 mg/dL High 70-100 BUN 20 mg/dL 6-24 Creatinine 1.2 mg/dL 0.50-1.40 One Over Creatinine 0.83 BUN/Creatinine Ratio 16.7 8-20 Calcium 8.8 mg/dL 8.1-9.9 eGFR Non- 62.4 > 60 eGFR 80.3 > 60 85 CBC Auto Diff 02/01/2012 White Blood Count [...] 0-0.2 Protime 02/01/2012 Inr 0.87 Low 0.88-1.13 86 Protime 10.3 SEC 10.3-13.5 87 Comp Metabolic Panel 02/01/2012 Sodium 136 mmol/L 135-145 Potassium 4.3 mmol/L 3.5-5.0 Chloride 101 mmol/L 101-111 Co2 (Carbon Dioxide) 29.0 mmol/L 22-32 Anion Gap 6.0 mmol/L 2-11 88 Glucose 95 mg/dL 70-100 BUN 24 mg/dL 6-24 Creatinine 1.3 mg/dL 0.50-1.40 One Over Creatinine 0.76 BUN/Creatinine Ratio 18.5 8-20 Calcium 9.1 mg/dL 8.1-9.9 Total Protein 7.2 GM/DL 6.2-8.1 Albumin 4.0 GM/DL 3.6-5.4 Globulin 3.2 GM/DL 2-4 Albumin/Globulin Ratio 1.3 1-3 Bilirubin Total 0.7 mg/dL 0.4-1.5 89 Alkaline Phosphatase 48 U/L 39-117 Alt (SGPT) 22 U/L 17-63 Ast (Sgot) 29 U/L 12-42 eGFR Non- 56.9 > 60 eGFR 73.2 > 60 90 Laboratory test finding 02/01/2012 Troponin-I 0 NG/ML 0-0.06 91 Laboratory test finding 10/26/2011 Hemoglobin A1c 8.2 High 5-7 Lipid Profile (Trig/Chol/HDL) 10/10/2011 Triglyceride 63 mg/dL 40-200 Cholesterol 130 mg/dL Less Than 200 92 High Density Lipoprotein 52 mg/dL 40-60 93 Cholesterol/HDL Ratio 2.50 AVERAGE 1-4.97 Low Density Lipoprotein 65 mg/dL Less Than 100 94 Comp Metabolic Panel 10/10/2011 Sodium 141 mmol/L 135-145 Potassium 5.0 mmol/L 3.5-5.0 Chloride 104 mmol/L 101-111 Co2 (Carbon Dioxide) 30.0 mmol/L 22-32 Anion Gap 7.0 mmol/L 2-11 95 Glucose 172 mg/dL High 70-100 BUN 16 mg/dL 6-24 Creatinine 1.0 mg/dL 0.50-1.40 One Over Creatinine 1.00 BUN/Creatinine Ratio 16.0 8-20 Calcium 8.9 mg/dL 8.1-9.9 Total Protein 5.9 GM/DL Low 6.2-8.1 Albumin 3.7 GM/DL 3.6-5.4 Globulin 2.2 GM/DL 2-4 Albumin/Globulin Ratio 1.7 1-3 Bilirubin Total 0.5 mg/dL 0.4-1.5 96 Alkaline Phosphatase 55 U/L 39-117 Alt (SGPT) 18 U/L 17-63 Ast (Sgot) 22 U/L 12-42 eGFR Non- 77.3 > 60 eGFR 99.4 > 60 97 Laboratory test finding 04/20/2011 Hemoglobin A1c 7.2 High 5-7 Laboratory test finding 01/19/2011 Hemoglobin A1c 6.8 5-7 1 Reference ranges based on room air. 2 [facility] Severe Sepsis and Septic Shock Management Bundle Measure requires all lactic acids initially measuring >2.0 mmol/L be repeated. Verbal to [id number] by [id number] at 0142 on 01/02/18. Results read back accurately. 3 Because ethnic data is not always readily [...] 15-29 5 Kidney failure <15 (or dialysis) 4 Acute inflammation: >10.00 5 consistent with previous also 6 Because ethnic data is not always readily [...] 15-29 5 Kidney failure <15 (or dialysis) 7 Therapeutic target for the treatment of diabetes mellitus patients is <7% HBA1C, and in selective patients <6.0%. Please refer to [place] [employer] diabetic care guidelines for further information. 8 Normocytic anemia. Moderate thrombocytopenia. No evidence of a hemolytic process. Reviewed by Erica Mckinley MD 9 Because ethnic data is not always [...] 5 Kidney failure <15 (or dialysis) 10 [facility] Severe Sepsis and Septic Shock Management Bundle Measure requires all lactic acids initially measuring >2.0 mmol/L be repeated. 11 Because ethnic data is not always [...] 5 Kidney failure <15 (or dialysis) 12 Therapeutic target for the treatment of diabetes mellitus patients is <7% HBA1C, and in selective patients <6.0%. Please refer to [place] [employer] diabetic care guidelines for further information. 13 Because ethnic data is not always [...] 160-189 mg/dL Very High: >189 mg/dL 18 FASTING 10 HOUR 19 Therapeutic target for the treatment of diabetes Mellitus patients is <7% HBA1C, and in selective patients <6.0%.Please refer to [place] [employer] Diabetic care guidelines for further information. 20 Highway Design Engineer: [id number] YISEL NÚÑEZ 21 Highway Design Engineer: [id number] YISEL NÚÑEZ 22 [address] Design Engineer: [id number] YISEL NÚÑEZ 23 Because ethnic data is not always readily [...] 15-29 5 Kidney failure <15 (or dialysis) 24 Because ethnic data is not always [...] 5 Kidney failure <15 (or dialysis) 25 Desirable <150 Borderline high 150-199 High 200-499 Very High >500 26 Desirable <200 Borderline high 200-239 High >239 27 Low <40 Desirable: 40-60 High: >60 28 Desirable: <100 mg/dL Near Optimal: 100-129 mg/dL Borderline High: 130-159 mg/dL High: 160-189 mg/dL Very High: >189 mg/dL 29 Because ethnic data is not always readily [...] 15-29 5 Kidney failure <15 (or dialysis) 30 Normal Range 180 to 914 Indeterminate Range 145 to 180 Deficient Range <145 31 Because ethnic data is not always [...] 5 Kidney failure <15 (or dialysis) 33 Reference Range and Interpretation: TnI (ng/mL) Interpretation Less Than 0.03 ng/mL Not supportive of diagnosis of RI 0.03 - 0.50 ng/mL Indeterminate: suggest serial studies if clinically indicated. Greater than 0.5 ng/mL Consistent with diagnosis of RI 34 Critical Result M.9 Called to [id number] at: 13:12:04 by:[id number] Read back by:[id number] 35 Therapeutic target for the treatment of diabetes Mellitus patients is <7% HBA1C, and in selective patients <6.0%.Please refer to [place] [employer] Diabetic care guidelines for further information. 36 Critical Result LACT:2.2 Called to [id number] at: 22:27:22 by:[id number] Read back by:[id number] [place] Severe Sepsis and Septic Shock Management Bundle Measure requires all lactic acids initially measuring >2.0 mmol/L be repeated. 37 >100 to <200 pg/mL: likely compensated congestive heart failure (CHF) 200 to 400 pg/mL: likely moderate CHF >400 pg/mL: likely moderate to severe CHF 38 Because ethnic data is not always [...] 5 Kidney failure <15 (or dialysis) 39 Acute inflammation: >10.00 40 Reference Range and Interpretation: TnI (ng/mL) Interpretation Less Than 0.03 ng/mL Not supportive of diagnosis of RI 0.03 - 0.50 ng/mL Indeterminate: suggest serial studies if clinically indicated. Greater than 0.5 ng/mL Consistent with diagnosis of RI 41 Highway Design Engineer: [id number] AMY Drake [facility] Severe Sepsis and Septic Shock Management Bundle Measure requires all lactic acids initially measuring >2.0 mmol/L be repeated. 43 Because ethnic data is not always readily [...] 15-29 5 Kidney failure <15 (or dialysis) 44 Because ethnic data is not always readily [...] 15-29 5 Kidney failure <15 (or dialysis) 45 [MG] affected by ICTERUS 46 Serum levels of PSA measured using the [employer] DXI Hybritech immunoassay should not be interpreted [...] methods or kits cannot be used interchangeably. 47 Because ethnic data is not always readily [...] 15-29 5 Kidney failure <15 (or dialysis) 48 Desirable <150 Borderline high 150-199 High 200-499 Very High >500 49 Desirable <200 Borderline high 200-239 High >239 50 Low <40 Desirable: 40-60 High: >60 51 Desirable: <100 mg/dL Near Optimal: 100-129 mg/dL Borderline High: 130-159 mg/dL High: 160-189 mg/dL Very High: >189 mg/dL 52 Therapeutic target for the treatment of diabetes Mellitus patients is <7% HBA1C, and in selective patients <6.0%.Please refer to [place] [employer] Diabetic care guidelines for further information. 53 FASTING 12 HOUR 54 Therapeutic target for the treatment of diabetes Mellitus patients is <7% HBA1C, and in selective patients <6.0%.Please refer to [place] [employer] Diabetic care guidelines for further information. 55 Microalbuminuria in a random sample is defined as: Microalbumin/Creatinine ratio of 30-299 ug/mg. 56 Desirable <150 Borderline high 150-199 High 200-499 Very High >500 57 Desirable <200 Borderline high 200-239 High >239 58 Low <40 Desirable: 40-60 High: >60 59 Desirable <100 Near Optimal 100-129 Borderline high 130-159 High 160-189 Very High >189 60 Reference Range and Interpretation: TnI (ng/mL) Interpretation Less Than 0.06 ng/mL Not supportive of diagnosis of RI 0.06 - 0.50 ng/mL Indeterminate: suggest serial studies if clinically indicated. Greater than 0.5 ng/mL Consistent with diagnosis of RI 61 Because ethnic data is not always readily [...] 15-29 5 Kidney failure <15 (or dialysis) 62 Test Performed by: [place] [address] [place] Tanner: John Cash III, M.D. 63 Serologic response to B. burgdorferi infection is not detected, but cannot rule out early infection during which low or undetectable antibody levels to B. burgdorferi may be present. If clinically indicated, a new serum specimen should be submitted in 7-14 days. Test Performed by: [place] [address] [employer] Tanner: John Cash III, M.D. 64 HDL Interpretation: Undesirable: High Risk: Less than 40 mg/dL Desirable: Low Risk: Greater than 60 mg/dL 65 LDL Interpretation: Low Risk Optimal Level: LDL Less than 100 mg/dL Near or Above Optimal: LDL 100-129 mg/dL Borderline High Risk: LDL 130-159 mg/dL High Risk: LDL 160-189 mg/dL Very High Risk: LDL Greater than 189 mg/dL 66 Because ethnic data is not always readily [...] 15-29 5 Kidney failure <15 (or dialysis) 67 Microalbuminuria in a random sample is defined as: Microalbumin/Creatinine ratio of 30-299 ug/mg. 68 Normal serum electrophoretic pattern. 69 Normal serum immunofixation electrophoretic pattern. No monoclonal protein detected. 70 @Sample frozen by [id number] at 2041 on 06/01/12. 71 A metabolite of Naproxen, O-desmethylnaproxen, has been shown to interfere with the [place] method for measuring total bilirubin. Samples from patients who have taken Naproxen have shown spurious elevation in total bilirubin levels. 72 The World Health Organization (WHO) Hepatitis B Immunoglobulin 1st International Reference Preparation (1976): The accepted criteria for immunity to HBV is anti-HBs activity greater than or equal to 10 mIU/mL. An Index Value of 1.00 is equivalent to 10 mIU/mL. Samples with an Index Value of 1.00 or greater are considered reactive (protective) in accordance with the CDC guidelines. 73 @Sample frozen by [id number] at 2041 on 06/01/12. 74 @Sample frozen by [id number] at 2041 on 06/01/12. 75 Please note: New reference range, effective 08/04/11 NORMAL REFERENCE RANGE: GREATER THAN 4.1 NG/ML 76 Anion gap measurement may be of limited value in the presence of any alkalosis, especially in a combined acid base disorder. . 77 Because ethnic data is not always [...] BASED ON THE INR VALUE ALONE. 80 Anion gap measurement may be of limited value in the presence of any alkalosis, especially in a combined acid base disorder. . 81 Because ethnic data is not always readily [...] 15-29 5 Kidney failure <15 (or dialysis) 82 Please note: New reference range, effective 08/04/11 NORMAL REFERENCE RANGE: GREATER THAN 4.1 NG/ML 83 MICROALBUMINURIA IN A RANDOM SAMPLE IS DEFINED : MICROALBUMIN/CREATININE RATIO OF 30-299 ug/mg. . 84 Anion gap measurement may be of limited value in the presence of any alkalosis, especially in a combined acid base disorder. . 85 Because ethnic data is not always [...] 15-29 5 Kidney failure <15 (or dialysis) 86 Recommended INR for Patients on Oral Anticoagulants Prophylaxis 2.0 - 3.0 Treatment of thrombosis 2.0 - 3.0 Prevention of embolism 2.0 - 3.0 Prevention of embolism from prosthetic heart valves 2.5 - 3.5 87 DIAGNOSIS,TREATMENT,AND THERAPY MUST BE BASED ON THE INR VALUE ALONE. 88 Anion gap measurement may be of limited value in the presence of any alkalosis, especially in a combined acid base disorder. . 89 A metabolite of Naproxen, O-desmethylnaproxen, has been shown to interfere with the Jendrassik-[place] method for measuring total bilirubin. Samples from patients who have taken Naproxen have shown spurious elevation in total bilirubin levels. 90 Because ethnic data is not always readily [...] 15-29 5 Kidney failure <15 (or dialysis) 91 New Reference Range and Interpretation effective 05/17/2002 TnI (ng/ml) INTERPRETATION Less Than 0.06 ng/mL NOT SUPPORTIVE OF DIAGNOSIS OF RI 0.06 - 0.50 ng/ml INDETERMINATE: SUGGEST SERIAL STUDIES IF CLINICALLY INDICATED. Greater than 0.5 ng/mL CONSISTENT WITH DIAGNOSIS OF RI . 92 CHOLESTEROL INTERPRETATION: Desirable: Less than 200 MG/DL Borderline-High Risk: 200-239 MG/DL High-Risk: 240 MG/DL and over 93 HDL INTERPRETATION: Undesirable: High Risk: Less than 40 MG/DL Desirable: Low Risk: Greater than 60 MG/DL 94 LDL INTERPRETATION: Low Risk Optimal Level: LDL Less than 100 MG/DL Near or Above Optimal: LDL 100-129 MG/DL Borderline High Risk: LDL 130-159 MG/DL High Risk: LDL 160-189 MG/DL Very High Risk: LDL Greater than 189 MG/DL 95 Anion gap measurement may be of limited value in the presence of any alkalosis, especially in a combined acid base disorder. . 96 A metabolite of Naproxen, O-desmethylnaproxen, has been shown to interfere with the Jendrassik-Amol method for measuring total bilirubin. Samples from patients who have taken Naproxen have shown spurious elevation in total bilirubin levels. 97 Because ethnic data is not always readily [...] Date CPT Code Description Status Comment 11/22/2017 21926 ECHO Transthoracic, Real-Time Completed 2D With Doppler And Color Flow 11/22/2017 09582 ECHO Transthoracic, Real-Time Completed 2D With Doppler And Color Flow 11/04/2016 06014 ECHO Transthoracic, Real-Time Completed 2D With Doppler And Color Flow 10/31/2016 82034 Stress Test Completed 10/31/2016 25139 Myocardial Perfusion Imaging Completed Tomographic (Spect) Multiple Studies 10/21/2016 90633 EKG Tracing & Completed Interpretation 12/11/2015 Diabetic Retinal Eye Exam Completed 08/28/2015 Diabetic Retinal Eye Exam Completed 07/23/2015 Diabetic Retinal Eye Exam Completed 09/14/2014 Colonoscopy Completed intestinal undigested food ? abcess, amato'e esophagus 06/09/2014 60574 Spirometry Incl Graphic Record Completed 05/16/2014 Diabetic Retinal Eye Exam Completed 05/15/2014 Diabetic Retinal Eye Exam Completed Document: 05/15/14 - Consult Ophthalmology/[place] 11/18/2013 Diabetic Retinal Eye Exam Completed 11/08/2013 75497 EKG Tracing & Completed Interpretation 11/04/2013 84888 ECHO Transthoracic, Real-Time Completed 2D With Doppler And Color Flow 03/30/2012 01481 Arthroscopy,Knee,Meniscectomy Completed Media & Lateral 03/30/2012 65943 Arthroscopy,Knee,Meniscectomy Completed Media & Lateral 03/16/2012 30995 EKG Tracing & Completed Interpretation 08/14/2007 Colonoscopy Completed Document: 01/19/11 - History Encounters Type Date Location Provider CPT E/M Dx Office Visit 01/03/2018 [facility] Assoc,pc Logan Alcazar, 82800 R10.30 10:46a Hospitalmisael Ruiz C25.9 I25.10 I10 Office Visit 01/02/2018 10:45a [facility] Hermelindo Algona, 54777 R10.30 Assoc,pc Hospitalists N.PJagruti C25.9 I25.10 I10 Office Visit 11/28/2017 11:40a [facility] Internal Medicine Kvng Yanez, 95693 R10.81Cesar - Lennie Ruiz,FACP Office Visit 11/21/2017 10:00a [facility] Vassilios 84472 M54.5 Of [facility] MD Denys Z85.07 Office Visit 11/08/2017 9:20a [facility] Internal Josse Gomez, 23723 K57.32 Thomas Hogue M.D. L30.9 M54.5 Office Visit 10/27/2017 9:40a [facility] Internal Kvng Yanez, 93948 M50.122 Medicine - Tbestelita Mane M.D.,FACP E11.65 I10 Office Visit 10/24/2017 9:00a [facility] 26109 M50.122 Of [facility] MD Denys Office Visit 09/29/2017 9:40a [facility] Internal Medicine Kvng Yanez, 34690 E11.65 - [place] Alhaji Ruiz,FACP M54.12 Office Visit 09/20/2017 10:50a [facility] Internal Ashely Narvaez, ROAD MANAGER [address]22 M54.12 Medicine - [address] Office Visit 08/28/2017 1:10p [facility] Internal Ashely Narvaez, ROAD MANAGER 64019 S43.422A Medicine - [address] M54.2 Office Visit 06/22/2017 9:40a [facility] Internal Kvng Yanez, 53361 E11.65 Medicine - [place] Alhaji Ruiz,FACP I10 C25.3 Z23 Office Visit 02/27/2017 8:50a [facility] Internal Medicine Kvng Yanez, 11530 C25.3 - [place] Alhaji Ruiz,FACP E11.65 I10 E83.42 Office Visit 11/28/2016 10:30a [facility] Internal Kvng Yanez, 81146 E11.65 Medicine - [place] Alhaji Ruiz,FACP I10 C25.3 Office Visit 11/07/2016 10:00a [facility] Tyree Goodrich, 54987 I25.10 Vicenta Ruiz, [facility], FASNC Office Visit 10/21/2016 1:30p [facility] Tyree Goodrich, 00862 I25.10 Vicenta HUBBARD [place] Sara, [facility], FASNC R94.31 Office Visit 08/29/2016 2:40p [facility] Internal Kvng Yanez, 43308 E11.649 Medicine - [place] Alhaji Ruiz,FACP I10 Office Visit 07/01/2016 9:00a [facility] Internal Medicine Kvng Yanez, 60186 C25.3 - [place] Alhaji Ruiz,FACP I10 E87.6 E13.9 Office Visit 05/20/2016 9:00a [facility] Internal Kvng Yanez, 07923 E11.649 Medicine - [place] Alhaji Riuz,FACP E87.6 I10 C25.3 Z23 Office Visit 05/09/2016 8:20a [facility] Internal Medicine - Ronak Villatoro, ROAD MANAGER [address] E87.6 E83.42 I10 Z79.4 Office Visit 05/04/2016 2:46p [facility] Refugio Snow, 07330 E16.2 Assoc,pc [place] Hospitalists E87.8 E13.9 Office Visit 05/03/2016 2:46p [facility] Dinorah SolizNeal, [address]16[address]2 Ass[address],pc [address]AD MANAGER Hospitalists E87.8 E13.9 Office Visit 04/15/2016 1:00p [facility] Internal Josse Gomez M.D. 15134 E78.2 Medicine - [address] C25.3 E11.42 K21.9 Office Visit 01/14/2016 8:00a [facility] Internal Medicine - Christa Lr M.D. 48539 R17 [place] K86.8 Office Visit 01/05/2016 1:40p [facility] Internal Medicine - Christa Lr M.D. 05661 R17 [place] E11.8 Office Visit 01/01/2016 12:43p [facility], Charo Arnett M.D. 13637 R17 Hospitalists I25.10 E11.8 I10 Office Visit 12/31/2015 12:42p [facility], Charo Arnett M.D. 87573 R17 Hospitalists I25.10 E11.8 I10 Office Visit 12/30/2015 12:41p [facility], Charo Arnett M.D. 12409 R17 Hospitalists I25.10 E11.8 I10 Office Visit 12/29/2015 12:40p [facility], Hermelindo Weller, 71695 R17 Hospitalists N.P. I25.10 E11.8 I10 Office Visit 12/29/2015 10:40a [facility] Internal Medicine Christa Lr M.D. 16374 E11.65 - [place] K52.9 Office Visit 09/10/2015 10:40a [facility] Internal Medicine Christa Lr M.D. 55369 E11.65 - [place] I73.9 J30.9 Office Visit 08/27/2015 10:00a [facility] Internal Medicine Christa Lr M.D. 34854 E11.65 - [place] N29 J20.9 H91.93 Office Visit 05/26/2015 10:40a [facility] Internal Medicine Christa Lr M.D. 66553 E11.65 - [place] Z23 Office Visit 04/07/2015 10:40a [facility] Internal Medicine Christa Lr M.D. 69176 250.02 - [place] Office Visit 03/06/2015 10:40a [facility] Internal Medicine Christa Lr M.D. 33238 250.02 - [place] 729.82 593.9 Office Visit 02/12/2015 9:00a [facility] Internal Medicine Christa Lr M.D. 08591 V70.0 - [place] 272.2 250.00 536.3 729.82 V76.44 250.02 Office Visit 10/28/2014 1:40p [facility] Internal Medicine Christa Lr M.D. 62310 250.00 - [place] 536.3 272.2 V05.3 V03.82 V58.67 Office Visit 07/01/2014 12:40p [facility] Internal Medicine Christa Lr M.D. 71221 250.00 - [place] 493.90 536.3 780.52 Office Visit 06/05/2014 1:00p [facility] Internal Medicine Christa Lr M.D. 45928 272.2 - [place] 250.00 536.3 493.90 v04.81 Office Visit 02/28/2014 9:40a [facility] Internal Medicine Christa Lr M.D. 20054 250.00 - [place] 272.4 V76.44 Office Visit 11/21/2013 8:40a [facility] Internal Medicine Christa Lr M.D. 11163 250.00 - [place] v05.3 917.0 Office Visit 10/29/2013 1:40p [facility] Internal Medicine Christa Lr M.D. 73532 917.0 - [place] 807.00 401.9 250.00 Office Visit 10/22/2013 11:00a [facility] Internal Medicine Christa Lr M.D. 53970 250.02 - [place] 401.9 917.0 v05.3 Office Visit 10/03/2013 11:20a [facility] Internal Medicine Christa Lr M.D. 22594 401.9 - [place] 807.00 300.09 Office Visit 09/17/2013 1:30p [facility] Internal Medicine Gina Razo M.D. 52810 401.9 - [place] 308.3 Office Visit 07/04/2013 11:50a [facility] Internal Medicine Gina Razo, 94631 008.69 - [place] M.Tala v04.81 Office Visit 05/28/2013 1:20p [facility] Internal Josse Gomez 91442 250.02 Medicine - Lennie Ruiz 401.9 272.4 278.00 Office Visit 01/28/2013 9:40a [facility] Internal Josse Gomez, 31309 250.02 Medicine Elzbieta Hogue M.D. V76.44 401.9 278.00 272.4 V70.0 Office Visit 12/05/2012 11:40a [facility] Internal Medicine Josse Gomez, 58634 682.9 - Trinidadalmita Ruiz 250.02 Office Visit 10/24/2012 9:20a [facility] Internal Josse Gomez 09260 250.02 Medicine - Lennie Ruiz V76.44 401.9 272.4 278.00 Office Visit 10/12/2012 10:00a [facility] Tyree Goodrich, 39209 414.9 Vicenta Ruiz, FAC, [facility] Office Visit 05/07/2012 9:40a [facility] Internal Medicine Elzbieta Gomez 06366 250.02 Lennie Ruiz 401.9 272.4 278.00 287.5 530.81 Office Visit 04/23/2012 9:40a [facility] Internal Josse Gomez 96364 V04.81 Medicine - Lennie Ruiz 285.8 287.5 v04.81 250.02 Office Visit 03/22/2012 9:15a [facility] Thompson, 76283 719.46 C.M.A. M.D. Office Visit 03/16/2012 1:15p [facility] Internal Medicine Nathalie Gooden, 24180 717.3 - [place] N.P. 401.1 272.2 V72.84 250.02 V72.84 Office Visit 03/01/2012 8:30a [facility] Internal Medicine Nathalie Gooden, N.P. 58623 250.02 - [place] 401.9 272.4 278.00 Office Visit 12/21/2011 2:00p [facility] Internal [place] Jason, 96198 250.02 Medicine - [place] M.D. Office Visit 11/09/2011 2:00p [facility] Internal [place] Jason, 77476 250.00 Medicine - [place] M.D. Office Visit 10/26/2011 2:00p [facility] Internal Josse Jason, 39442 250.00 Medicine - [place] M.D. 401.9 272.4 530.85 278.00 Office Visit 10/11/2011 10:00a [facility] Thompson M.D. 56587 836.0 C.M.A. Office Visit 10/05/2011 9:40a [facility] Internal Medicine Josse Jason, 03647 717.3 - [place] MVenita Office Visit 08/25/2011 11:30a [facility] Thompson M.D. 62660 836.0 C.M.A. Office Visit 08/16/2011 1:00p [facility] Internal Medicine Jossefrederick Gomez, 53959 717.3 - Lennie Ruiz 722.91 719.41 Office Visit 07/12/2011 11:00a DO Not Use Admission Nurse AT [facility], 01746 V04.81 Rimma Riuz 722.91 719.06 719.41 v04.81 Office Visit 06/28/2011 2:40p DO Not Use Admission Nurse AT [facility], [address] [phone] Rimma Ruiz 457.1 Office Visit 06/21/2011 3:00p DO Not Use Admission Nurse AT [facility], [address] [phone] Rimma Ruiz 457.1 719.06 Office Visit 06/07/2011 1:00p DO Not Use Admission Nurse AT [facility], [address] 719.06 Rimma Ruiz 466.0 Office Visit 04/20/2011 8:20a DO Not Use Admission Nurse AT Josse Gomez M.D. 20827 401.9 [facility] 250.00 272.4 780.52 278.00 530.81 V70.0 Office Visit 01/19/2011 10:40a DO Not Use Admission Nurse AT Josse Gomez M.D. 50466 401.9 [facility] 250.00 272.4 278.00 530.81 [phone] Plan of Care Future Appointment(s):02/19/2018 11:40 am - Kvng Yanez M.D.,FACP at [facility] - [address]01/09/2018 - Kvng Yanez M.D.,FACPC25.9 Malignant neoplasm of pancreas, unspecifiedComments:Follow up with oncologist as [id number] Epigastric abdominal tendernessComments:You can take Prochlorperazine Maleate as needed for hiccups, up to 3 pills daily.I10 Essential (primary) hypertensionComments:You are meeting target blood pressure. Continue low salt diet and current medicationsAerobic exercise 30 minutes 5 times per week should improve blood pressure.Goals:Blood pressure goal <140/ 90 in general. Blood pressure goal <150/90 in people older than 75. Blood pressure goal <130/85 in diabetic patients. Goal BMI is less than 25.E11.65 Type 2 diabetes mellitus with hyperglycemiaComments:You are [...]
[2018-01-13] MEDS ORDERED: Ondansetron INJ* 2 MG/ML VIAL IV ONE (19:49)
[2018-01-13] MEDS ORDERED: NS 0.9% 1000 ML*IV.FLUID IV ONE (19:49)
[2018-01-13] MEDS ORDERED: PROCHLORPERAZINE INJ 5 MG/ML 2 ML VIAL ONE (20:05)
[2018-01-13] MEDS ORDERED: PROCHLORPERAZINE INJ 5 MG/ML 2 ML VIAL IV PRN (20:10)
[2018-01-13 20:52] LABS: INR 1.03 (0.77-1.02)
[2018-01-13 20:55] LABS: Hematocrit 35 % (42-52); Hemoglobin 11.9 g/dl (14.0-18.0); Mean Corpuscular HGB Conc 34 g/dl (31-36); Mean Corpuscular Hemoglobin 29 pg (27-31); Mean Corpuscular Volume 85 fL (80-94); Mean Platelet Volume 7.8 um3 (7.4-10.4); Platelet Count 45 10^3/ul (150-450); Red Blood Count 4.16 10^6/ul (4.0-5.4); Red Cell Distribution Width 16 % (10.5-15); White Blood Count 1.9 10^3/ul (3.5-10.8)
[2018-01-13 21:02] LABS: EGFR Non-African American 77.2 (>60)
[2018-01-13 21:29] LABS: Urine Appearance Clear; Urine Blood Negative (Negative); Urine Color Yellow; Urine Ketones Negative (Negative); Urine Protein 2+(100 mg/dL) (Negative); Urine Urobilinogen Negative (Negative)
[2018-01-13 21:48] LABS: ABS Basophils 0 10^3/ul (0-0.2); ABS Eosinophils 0 10^3/ul (0-0.6); ABS Lymphocytes 0.3 10^3/ul (1.0-4.8); ABS Monocytes 0.2 10^3/ul (0-0.8); ABS Neutrophils 1.4 10^3/ul (1.5-7.7)
[2018-01-13 21:49] LABS: ABS Nucleated RBC 0 10^3/ul; Eosinophil % 0.1 % (0-6); Lymphocyte % 17.7 % (25-47); Nucleated Red Blood Cells % 0.1
[2018-01-13] MEDS ORDERED: Ondansetron INJ* 2 MG/ML VIAL IV PRN (22:23)
[2018-01-13] MEDS ORDERED: NS 0.9% 1000 ML* 1,000 ML IV SCH (22:30)
[2018-01-13] MEDS ORDERED: Enoxaparin(*) 40 MG/0.4 ML SYR SUBCUT SCH (23:00)
[2018-01-13] MEDS: Cefepime 1 GM in Dextrose(*) 1 GM/50 ML BAG IV SCH (23:50)
[2018-01-13] MEDS: NYST SWISH SPIT SCH (23:50)
[2018-01-13] MEDS: LIDO MOUTHWASH SWISH SPIT SCH (23:50)
[2018-01-13] MEDS: MAAL SWISH SPIT SCH (23:50)
[2018-01-13] MEDS: MAGIC M W2 BEN SWISH SPIT SCH (23:50)
[2018-01-14] MEDS: oxyCODONE TAB* 5 MG TAB PO PRN ×5 (00:01→23:16)
[2018-01-14] MEDS: Baclofen TAB* 10 MG PO PRN ×4 (00:01→23:22)
--- NOTE | 2018-01-14 01:53 | HP ---
ADMISSION HISTORY AND PHYSICAL: DATE OF ADMISSION: 01/13/18 PRIMARY CARE PROVIDER: Dr. Yanez ONCOLOGIST: Dr. Mccarthy in [place], [place]. HEALTHCARE PROXY: Daughter, Allegra. CODE STATUS: DNR, discussed with patient. SOURCE OF INFORMATION: History obtained from patient, review of past medical records. RELIABILITY: Good. CHIEF COMPLAINT: Fever. HISTORY OF PRESENT ILLNESS: This is a 62-year-old man, recent hospital stay at [facility], discharged on 01/03/18 after admitted with abdominal pain, unresectable pancreatic cancer, who after discharge received chemotherapy approximately 10 days, approximately 7 or 8 days prior had been feeling well, saw his oncologist yesterday, however, today woke up feeling "freezing" and then started to feel hot and sweating. He checked his temperature on several occasions and it ranged from 102 up to a maximum of 102.5. He did not take any medications, but because of his high fever, he presented to the hospital. He has noted persistent hiccups for 3 weeks and diarrhea starting today that was occurring every hour, but has resolved since presenting to the emergency room. He denies any cough or chest pain, nausea, shortness of breath or rashes, but does endorse ulcerations in his mouth after his last dose of chemotherapy. His last hospital stay was for abdominal pain and he feels his abdomen is much improved since discharge, although his back, which he has suffered with chronic pain, is still bothering him. He denies any urinary symptoms including dysuria, hesitancy, or urinary frequency. His diet has been adequate. He has had no travel. In the emergency room, he was noted with an increased lactic acid as well as a falling absolute neutrophil count. Hospitalist service was consulted for neutropenic fever. PAST MEDICAL HISTORY: Includes unresectable pancreatic cancer with course complicated by biliary obstruction, which required stenting in [place] followed by obstruction again, which required repeat stenting in November of this year, history of CAD with an ME, chronic back pain, diabetes, hypertension. PAST SURGICAL HISTORY: L4-5 laminectomy, knee surgery, Whipple, biliary stenting as indicated above. MEDICATIONS: Home medications from discharge on the , the patient is unsure if these have been changed since that time include: 1. Creon 2 tabs 3 times a day in the evening. 2. Metformin 1000 mg twice daily. 3. Farxiga 10 mg daily. 4. Aspirin 81 mg daily. 5. Zocor 40 mg daily. 6. Opana ER 7.5 mg twice daily. 7. Prilosec 20 mg daily. 8. Metoprolol tartrate 37.5 mg twice daily. 9. Multiple antihypertensive agents were discontinued during his last hospital stay. ALLERGIES: CELECOXIB, PREGABALIN, QUININE. FAMILY HISTORY: Significant for CAD and diabetes. SOCIAL HISTORY: Former tobacco. Former heavy alcohol. Last drink over 20 years prior. Occasional marijuana. REVIEW OF SYSTEMS: As per HPI includes diarrhea, mouth ulcers, and fever, otherwise all other systems negative. PHYSICAL EXAMINATION GENERAL: Well-appearing, sitting up in bed, interactive, in no apparent distress. VITALS: In the emergency room, 128/86, heart rate is 73, respiratory rate is 18 , 96% on room air, T-max 98.8. HEENT: Oropharynx has ulcerations on posterolateral oropharynx and on his cheek. He has moist mucous membranes. His sclerae are anicteric. LUNGS: Clear to auscultation. HEART: He has a regular rate and rhythm. ABDOMEN: Soft, nontender, and nondistended. EXTREMITIES: Warm, well perfused. Trace bilateral lower extremity pitting edema. NEUROLOGIC: He is alert and oriented x3. His cranial nerves II through XII are intact. He has no apparent anxiety, agitation, or depression. LABORATORY DATA: Reviewed, notable for absolute neutrophil count of 1400, decreased from 3100 on 01/03/18, hemoglobin 11.9, platelets 45. BUN 24, creatinine 0.98, glucose 136, lactic acid 3.6. Urine notable for protein and glucose. Data reviewed, chest x-ray from this author's impression, no evident focal consolidation. Official interpretation to follow in the morning. ASSESSMENT AND PLAN: This is a 62-year-old man with medical history includes unresectable pancreatic cancer, status post Whipple now receiving chemotherapy, last dose approximately one week prior presenting with neutropenic fever. 1. Neutropenic fever. Neutrophils are not quite in neutropenic range, although falling since last seen here, stabilizes tomorrow. This may not represent neutropenic fever, but I think it is prudent to treat him as such today, especially with fevers measured as high as 102.5 at home. Started him on cefepime. Blood cultures have been ordered and are not yet collected, should certainly be collected prior to the administration of antibiotics. Give him 1 L of fluids slowly as he has no evidence of sepsis. It did indicate diarrhea, which could be a focal source and a C. diff sample is still pending at this time. 2. Lactic acidosis in the setting of chemotherapy and neutropenic fever repeat , pending at this time. 3. Type 2 diabetes, holding Farxiga and metformin, especially with lactic acidosis, treated with insulin Lispro sliding scale. 4. Hypertension, multiple medications discontinued at last stay given low blood pressure, continue metoprolol alone. 5. Hiccups, try baclofen. 6. Oral ulcerations. Magic Mouthwash ordered. 7. Code status is DNR. The patient indicates that he signed MOLST form on previous hospital stay, at this point this author cannot find it. If not, resign the MOLST form currently. 8. Thrombocytopenia in the setting of chemotherapy, SCDs, holding on pharmacologic anticoagulation. [id number]/[facility] #: [id number] RAZIA
[2018-01-14] MEDS ORDERED: Insulin LISPRO* 1 UNITS UNIT SUBCUT SCH (07:30)
--- NOTE | 2018-01-14 08:40 | RAD ---
INDICATION: Neutropenic fever. Congestive heart failure. Respiratory disease. COMPARISON: January 02, 2018 TECHNIQUE: Dual energy PA and routine lateral views of the chest were obtained. REPORT: Tip of RIGHT chest port at level of superior vena cava RIGHT atrial junction. Mild prominence of the interstitial markings and upper lung zone rarefaction. No focal pulmonary lesion, compelling alveolar consolidation, pleural effusion, pneumothorax. The heart, pulmonary vasculature, and mediastinal contours are unremarkable. IMPRESSION: Stigmata of obstructive lung disease. No acute pulmonary or cardiac process evident.
[2018-01-14] MEDS ORDERED: Morphine VIAL* 4 MG/ML VIAL (1 ml vial) IV PRN (08:57)
--- NOTE | 2018-01-14 09:04 | PN ---
Subjective Date of Service: 01/14/18 Interval History: Admitted last evening - still feels terrible. Diarrhea has since stopped but now he has significant bloating and discomfort. +gas. No N/V. Able to tolerate PO. Feels weak and unwell since chemo started. States for past two years since chemo he has had issues with low sugars. No CP or SOB. Objective Active Medications: Aspirin (Aspirin Ec Tab*) 81 mg PO DAILY [facility] Atorvastatin Calcium (Lipitor*) 20 mg PO DAILY [facility] Baclofen (Lioresal Tab*) 10 mg PO TID PRN PRN Reason: hiccups Last Admin: 01/14/18 00:01 Dose: 10 mg Dextrose (D50w Syringe 50 Ml*) 12.5 gm IV PUSH .FOR FS < 60 - SS PRN PRN Reason: FS < 60 Cefepime HCl (Maxipime 1 Gm In Dextrose Duplex (*)) 1 gm in 50 mls @ 100 mls/ hr IV Q12H [facility] Last Admin: 01/13/18 23:50 Dose: 100 mls/hr Insulin Human Lispro (Humalog*) 0 units SUBCUT [facility] PRN Reason: Protocol Metoprolol Tartrate (Lopressor Tab*) 37.5 mg PO BID [facility] Morphine Sulfate (Morphine Inj (Syringe)*) 2 mg IV Q4H PRN PRN Reason: PAIN - MILD Multi-Ingredient Mouthwash/Gargle (Magic M W2 Deejay/Maal/Nyst/Lido*) 5 ml SWISH SPIT QID [facility] Last Admin: 01/13/18 23:50 Dose: 5 ml Non Formulary Med* ( (Creon 2 Cap)) 2 cap PO TID [facility] Omeprazole (Prilosec Cap*) 20 mg PO DAILY [facility] Ondansetron HCl (Zofran Inj*) 4 mg IV Q4H PRN PRN Reason: NAUSEA/VOMITING Oxycodone HCl (Roxycodone Tab*) 10 mg PO Q4H PRN PRN Reason: PAIN Last Admin: 01/14/18 04:07 Dose: 10 mg Prochlorperazine Edisylate (Compazine Inj*) 10 mg IV Q6H PRN PRN Reason: NAUSEA/VOMITING Last Admin: 01/13/18 20:11 Dose: 10 mg Vital Signs - 8 hr 01/14/18 01/14/1818 03:30 04:00 04:07 Temperature 97.6 F 97.8 F Pulse Rate 79 Respiratory 20 24 Rate Blood Pressure 142/87 (mmHg) O2 Sat by Pulse 100 Oximetry 01/14/18 01/14/18 07:15 07:23 Temperature 97.8 F 97.8 F Pulse Rate 76 76 Respiratory 12 12 Rate Blood Pressure 144/71 144/71 (mmHg) O2 Sat by Pulse 100 100 Oximetry Oxygen Devices in Use Now: None Appearance: NAD, pale appearing Ears/Nose/Mouth/Throat: Mucous Membranes Moist Neck: NL Appearance and Movements; NL JVP, Trachea Midline Respiratory: Symmetrical Chest Expansion and Respiratory Effort, - - diminished b/l Cardiovascular: RRR Abdominal: - - hyperactive bowel sounds, distended, mildly firm, no rebound or gaurding Extremities: - - trace edema Skin: No Rash or Ulcers Neurological: Alert and Oriented x 3, NL Muscle Strength and Tone Result Diagrams: 01/13/18 20:30 01/13/18 20:30 Assess/Plan/Problems-Billing Assessment: This is a 62 yr old with PMHx of pancreatic cancer on chemo who was admitted with a fever and diarrhea - Patient Problems (1) Diarrhea Current Visit: Yes Status: Acute Code(s): R19.7 - DIARRHEA, UNSPECIFIED SNOMED Code(s): 74507900 Comment: A. In setting of a fever at home and on chemo Not quite neutropenic. Awaiting AM labs. Symptoms likely related to his chemo. Diarrhea has subsided, however now states he is very distended and uncomfortable Plan Continue Cefepime until Blood cultures return Await stool study results Pancho get abdominal film to r/o ileus Increase Pain meds (2) Pancreatic cancer Current Visit: No Status: Acute Comment: A. Dr. Mccarthy is oncologist is [place] office [phone] Plan recommend contact in AM Continue Creon (3) Diabetes Current Visit: No Status: Acute Code(s): E11.9 - TYPE 2 DIABETES MELLITUS WITHOUT COMPLICATIONS SNOMED Code(s): 34771185 Comment: A. patient with hypoglycemia this AM. Not on his orals and did not get any insulin Plan Will check his HgbA1c D/C insulin at HS insulin SS May need to d/c his home oral agents, or lower dose depending on result (4) HTN (hypertension) Current Visit: No Status: Acute Code(s): I10 - ESSENTIAL (PRIMARY) HYPERTENSION SNOMED Code(s): 80383702 Comment: controlled on metoprolol (5) Hyperlipidemia Current Visit: Yes Status: Acute Code(s): E78.5 - HYPERLIPIDEMIA, UNSPECIFIED SNOMED Code(s): 54561062 Comment: A/P continue atorvastatin (6) Thrombocytopenia Current Visit: Yes Status: Acute Code(s): D69.6 - THROMBOCYTOPENIA, UNSPECIFIED SNOMED Code(s): 210155360 Comment: A/P Low - chronic - likely due to chemo. Continue to monitor (7) DVT prophylaxis Current Visit: No Status: Acute Priority: Medium Code(s): YGX2023 - SNOMED Code(s): 075983386 Comment: heparin SQ (8) DNR (do not resuscitate) Current Visit: Yes Status: Acute Status and Disposition: Obs - Awaiting blood cultures, still with abdominal discomfort/pain control and weakness
[2018-01-14] MEDS: Atorvastatin* 20 MG TAB PO SCH (09:24)
[2018-01-14] MEDS: Metoprolol Tartrate TAB* 25 MG PO SCH ×2 (09:25→23:28)
[2018-01-14] MEDS: Aspirin EC TAB* 81 MG TAB.EC PO SCH (09:25)
[2018-01-14] MEDS: CREON PO SCH ×2 (09:35→17:51)
[2018-01-14] MEDS: MAAL SWISH SPIT SCH ×4 (09:46→20:07)
[2018-01-14] MEDS: LIDO MOUTHWASH SWISH SPIT SCH ×4 (09:46→20:07)
[2018-01-14] MEDS: NYST SWISH SPIT SCH ×4 (09:46→20:07)
[2018-01-14] MEDS: Omeprazole CAP* 20 MG PO SCH (09:46)
[2018-01-14] MEDS: MAGIC M W2 BEN SWISH SPIT SCH ×4 (09:46→20:07)
[2018-01-14 09:53] LABS: EGFR Non-African American 82.1 (>60)
[2018-01-14 10:01] LABS: ABS Basophils 0 10^3/ul (0-0.2); ABS Eosinophils 0 10^3/ul (0-0.6); ABS Lymphocytes 0.2 10^3/ul (1.0-4.8); ABS Monocytes 0.1 10^3/ul (0-0.8); ABS Neutrophils 0.6 10^3/ul (1.5-7.7); ABS Nucleated RBC 0 10^3/ul; Eosinophil % 0.8 % (0-6); Hematocrit 25 % (42-52); Hemoglobin 8.1 g/dl (14.0-18.0); Lymphocyte % 20.6 % (25-47); Mean Corpuscular HGB Conc 33 g/dl (31-36); Mean Corpuscular Hemoglobin 28 pg (27-31); Mean Corpuscular Volume 85 fL (80-94); Mean Platelet Volume 7.6 um3 (7.4-10.4); Nucleated Red Blood Cells % 0.2; Platelet Count 34 10^3/ul (150-450); Red Blood Count 2.88 10^6/ul (4.0-5.4); Red Cell Distribution Width 16 % (10.5-15); White Blood Count 0.9 10^3/ul (3.5-10.8)
--- NOTE | 2018-01-14 10:54 | RAD ---
Indication: Question ileus. Neutropenic fever. LEFT lower quadrant and RIGHT lower quadrant pain. History of pancreatic cancer. Comparison: January 02, 2018 CT. Technique: Supine view of the abdomen. Report: Mildly dilated small bowel loops at the LEFT lower quadrant with suggestion of mural thickening new compared with the January 02, 2018 CT. Large volume of stool present throughout the colon. The metallic biliary stent appears unchanged in position. Negative for mass effect. Moderate stool in the colon without significant rectal distension. IMPRESSION: Mildly dilated small bowel loops at the LEFT lower quadrant with suggestion of mural thickening new compared with the January 02, 2018 CT. Ileus and small bowel diameter process should be considered. Significant retained stool.
[2018-01-14] MEDS ORDERED: Iodixanol* (CONTRAST) 320 MG/ML 100 ML SDV IV SCH (12:01)
--- NOTE | 2018-01-14 13:41 | RAD ---
INDICATION: Abdominal pain. History of pancreatic cancer. Post Whipple procedure. Type II diabetic. COMPARISON: Abdomen radiograph of the same date and January 02, 2018 CT. TECHNIQUE: Multidetector CT images were obtained from the lung bases to the ischial tuberosities with 141 mL Visipaque 320 IV and oral contrast. Multiplanar reformation. REPORT: Grossly clear lung bases. Unchanged position of the metallic common bile duct stent. Expected pneumobilia. No significant intrahepatic biliary dilatation. 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 Associated enlargement of the portal vein compared with the November 29, 2017 noncontrast exam. January 02, 2018 noncontrast exam is limited for comparison. No focal hepatic lesions evident. Marked atrophy of the pancreas and pancreatic duct dilatation without change. Architectural distortion at the level of the pancreatic head corresponding with previous surgical site without discrete visualized mass. Negative for splenomegaly. Small splenule is at the splenic hilum. Patent splenic vein. Persistent mucosal enhancement at the small bowel visualized secondary to the portal vein thrombosis with impeded venous outflow. No additional suspicious abnormality of the upper GI, small bowel, or colon. Large volume of nonloculated ascites significantly increased over the prior exam. Negative for free air. Negative for significant hernias. Normal adrenal glands. Unremarkable kidneys with symmetric nephrograms and pyelograms. Negative for obstructive uropathy. Unremarkable nondilated ureters and moderately distended urinary bladder. Extensive increased density in the intra-abdominal fat most marked at the gastrosplenic ligament. Negative for retroperitoneal lymphadenopathy. Mild atherosclerotic plaque of normal diameter abdominal aorta and iliac arteries. Physiologic partial distention of the IVC. Negative for suspicious osseous lesions. IMPRESSION: 1. Unchanged position of the metallic biliary stent. Negative for significant biliary dilatation. 2. 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 Associated enlargement of the portal vein compared with the November 29, 2017 noncontrast exam. 3. Large volume of nonloculated ascites significantly increased over the prior exam and extensive increased density in the intra-abdominal fat most marked at the gastrosplenic ligament significantly increased over the prior exam and highly suspicious for metastatic implants and peritoneal carcinomatosis. Results discussed Dr. Fernandez 01/14/2018 1:32 PM EDT
[2018-01-14] MEDS: Cefepime 1 GM in Dextrose(*) 1 GM/50 ML BAG IV SCH ×2 (13:47→23:08)
[2018-01-14] MEDS: Insulin LISPRO* 1 UNITS UNIT SUBCUT SCH ×2 (13:48→17:28)
[2018-01-14] MEDS ORDERED: Heparin VIAL(*) 5000 UNITS/ML VIAL (FIVE THOUSAND) SUBCUT SCH (14:00)
[2018-01-14] MEDS: Morphine VIAL* 4 MG/ML VIAL (1 ml vial) IV PRN ×2 (20:30→23:08)
[2018-01-15] MEDS: CREON PO SCH ×3 (08:01→17:43)
[2018-01-15] MEDS: Insulin LISPRO* 1 UNITS UNIT SUBCUT SCH ×3 (08:37→17:42)
[2018-01-15] MEDS: Omeprazole CAP* 20 MG PO SCH (08:38)
[2018-01-15] MEDS: Aspirin EC TAB* 81 MG TAB.EC PO SCH (08:38)
[2018-01-15] MEDS: Atorvastatin* 20 MG TAB PO SCH (08:38)
[2018-01-15] MEDS: Metoprolol Tartrate TAB* 25 MG PO SCH ×2 (08:38→19:44)
[2018-01-15] MEDS: MAGIC M W2 BEN SWISH SPIT SCH ×4 (08:39→23:10)
[2018-01-15] MEDS: MAAL SWISH SPIT SCH ×4 (08:39→23:10)
[2018-01-15] MEDS: LIDO MOUTHWASH SWISH SPIT SCH ×4 (08:39→23:10)
[2018-01-15] MEDS: NYST SWISH SPIT SCH ×4 (08:39→23:10)
[2018-01-15 10:00] LABS: ABS Basophils 0 10^3/ul (0-0.2); ABS Eosinophils 0 10^3/ul (0-0.6); ABS Lymphocytes 0.3 10^3/ul (1.0-4.8); ABS Monocytes 0.1 10^3/ul (0-0.8); ABS Neutrophils 0.6 10^3/ul (1.5-7.7); ABS Nucleated RBC 0 10^3/ul; Eosinophil % 0.7 % (0-6); Hematocrit 34 % (42-52); Hemoglobin 11.2 g/dl (14.0-18.0); Lymphocyte % 26.1 % (25-47); Mean Corpuscular HGB Conc 33 g/dl (31-36); Mean Corpuscular Hemoglobin 28 pg (27-31); Mean Corpuscular Volume 85 fL (80-94); Mean Platelet Volume 7.6 um3 (7.4-10.4); Nucleated Red Blood Cells % 0.4; Platelet Count 45 10^3/ul (150-450); Red Blood Count 3.96 10^6/ul (4.0-5.4); Red Cell Distribution Width 17 % (10.5-15)
[2018-01-15 10:09] LABS: EGFR Non-African American 67.6 (>60)
[2018-01-15] MEDS: Cefepime 1 GM in Dextrose(*) 1 GM/50 ML BAG IV SCH ×2 (11:06→23:10)
[2018-01-15] MEDS: Morphine VIAL* 4 MG/ML VIAL (1 ml vial) IV PRN ×2 (11:32→21:56)
--- NOTE | 2018-01-15 17:38 | PN ---
Subjective Date of Service: 01/15/18 Interval History: bump in glucose. hx of hypoglycemia. reports was on levemir 35U qhs, 30U qam with 05/23/10 humalog at home abdominal discomfort largely resolved. PLT 45 Still neutropenic, ANC 600. Afebrile. Updated Dr. Mccarthy of heme/onc Objective Active Medications: Aspirin (Aspirin Ec Tab*) 81 mg PO DAILY [facility] Last Admin: 01/15/18 08:38 Dose: 81 mg Atorvastatin Calcium (Lipitor*) 20 mg PO DAILY [facility] Last Admin: 01/15/18 08:38 Dose: 20 mg Baclofen (Lioresal Tab*) 10 mg PO TID PRN PRN Reason: hiccups Last Admin: 01/14/18 23:22 Dose: 10 mg Dextrose (D50w Syringe 50 Ml*) 12.5 gm IV PUSH .FOR FS < 60 - SS PRN PRN Reason: FS < 60 Heparin Sodium (Porcine) (Heparin Flush(*)) 5 ml IV FLUSH DAILY [facility] PRN Reason: Protocol Last Admin: 01/15/18 12:05 Dose: 5 ml Cefepime HCl (Maxipime 1 Gm In Dextrose Duplex (*)) 1 gm in 50 mls @ 100 mls/ hr IV Q12H [facility] Last Admin: 01/15/18 11:06 Dose: 100 mls/hr Insulin Glargine (Lantus(*)) 20 units SUBCUT Q12H [facility] Insulin Human Lispro (Humalog*) 0 units SUBCUT AC [facility] PRN Reason: Protocol Last Admin: 01/15/18 12:25 Dose: 12 units Iodixanol (Visipaque* 320 (Contrast)) 141 ml IV ONCE [facility] Stop: 01/16/18 12:00 Last Admin: 01/14/18 12:57 Dose: 141 ml Metoprolol Tartrate (Lopressor Tab*) 37.5 mg PO BID [facility] Last Admin: 01/15/18 08:38 Dose: 37.5 mg Morphine Sulfate (Morphine Vial*) 2 mg IV Q2H PRN PRN Reason: PAIN - MILD Last Admin: 01/15/18 11:32 Dose: 2 mg Multi-Ingredient Mouthwash/Gargle (Magic M W2 Deejay/Maal/Nyst/Lido*) 5 ml SWISH SPIT QID [facility] Last Admin: 01/15/18 13:27 Dose: 5 ml Creon (12k-38k-60k) 2 cap PO TID [facility] Last Admin: 01/15/18 12:25 Dose: 2 cap Omeprazole (Prilosec Cap*) 20 mg PO DAILY [facility] Last Admin: 01/15/18 08:38 Dose: 20 mg Ondansetron HCl (Zofran Inj*) 4 mg IV Q4H PRN PRN Reason: NAUSEA/VOMITING Oxycodone HCl (Roxycodone Tab*) 10 mg PO Q2H PRN PRN Reason: PAIN Last Admin: 01/14/18 23:16 Dose: 10 mg Prochlorperazine Edisylate (Compazine Inj*) 10 mg IV Q6H PRN PRN Reason: NAUSEA/VOMITING Last Admin: 01/13/18 20:11 Dose: 10 mg Vital Signs - 8 hr 01/15/18 01/15/18 01/15/18 11:31 11:32 15:32 Temperature 97.4 F 98.1 F Pulse Rate 60 69 Respiratory 18 16 22 Rate Blood Pressure 101/47 116/74 (mmHg) O2 Sat by Pulse 96 99 Oximetry Oxygen Devices in Use Now: None Appearance: NAD. Eyes: No Scleral Icterus, PERRLA Ears/Nose/Mouth/Throat: NL Teeth, Lips, Gums, Mucous Membranes Moist Respiratory: Symmetrical Chest Expansion and Respiratory Effort, Clear to Auscultation Cardiovascular: NL Sounds; No Murmurs; No JVD, RRR Abdominal: - - distended, nontender, soft. Extremities: No Edema Neurological: Alert and Oriented x 3, NL Sensation, NL Muscle Strength and Tone Nutrition: Taking PO's Result Diagrams: 01/15/18 09:30 01/15/18 09:30 Additional Lab and Data: Laboratory Results - last 24 hr 01/14/18 01/14/18 01/15/18 09:30 09:30 07:47 WBC RBC Hgb Hct MCV MCH MCHC RDW Plt Count MPV Neut % (Auto) Lymph % (Auto) [place] % (Auto) Eos % (Auto) Baso % (Auto) Absolute Neuts (auto) Absolute Lymphs (auto) Absolute Monos (auto) Absolute Eos (auto) Absolute Basos (auto) Absolute Nucleated RBC Nucleated RBC % Hem Pathologist Commnt Sodium Potassium Chloride Carbon Dioxide Anion Gap BUN Creatinine Est GFR ( Amer) Est GFR (Non-Af Amer) BUN/Creatinine Ratio Glucose POC Glucose (mg/dL) 390 H Hemoglobin A1c 8.5 H Lactic Acid Calcium 01/15/18 01/15/18 01/15/18 09:30 09:30 09:30 WBC 1.0 L RBC 3.96 L Hgb 11.2 L Hct 34 L MCV 85 MCH 28 MCHC 33 RDW 17 H Plt Count 45 L MPV 7.6 Neut % (Auto) 65.2 Lymph % (Auto) 26.1 [place] % (Auto) 7.2 H Eos % (Auto) 0.7 Baso % (Auto) 0.8 Absolute Neuts (auto) 0.6 L* Absolute Lymphs (auto) 0.3 L Absolute Monos (auto) 0.1 Absolute Eos (auto) 0 Absolute Basos (auto) 0 Absolute Nucleated RBC 0 Nucleated RBC % 0.4 Hem Pathologist Commnt Sodium 133 L Potassium 4.0 Chloride 100 L Carbon Dioxide 21 L Anion Gap 12 H BUN 23 Creatinine 1.10 Est GFR ( Amer) 86.9 Est GFR (Non-Af Amer) 67.6 BUN/Creatinine Ratio 20.9 H Glucose 376 H POC Glucose (mg/dL) Hemoglobin A1c Lactic Acid 2.0 Calcium 8.1 L 01/15/18 01/15/18 11:38 17:24 WBC RBC Hgb Hct MCV MCH MCHC RDW Plt Count MPV Neut % (Auto) Lymph % (Auto) [place] % (Auto) Eos % (Auto) Baso % (Auto) Absolute Neuts (auto) Absolute Lymphs (auto) Absolute Monos (auto) Absolute Eos (auto) Absolute Basos (auto) Absolute Nucleated RBC Nucleated RBC % Hem Pathologist Commnt Sodium Potassium Chloride Carbon Dioxide Anion Gap BUN Creatinine Est GFR ( Amer) Est GFR (Non-Af Amer) BUN/Creatinine Ratio Glucose POC Glucose (mg/dL) 301 H 192 H Hemoglobin A1c Lactic Acid Calcium Microbiology and Other Data: Microbiology 01/14/18 14:32 Stool Gross Appearance - Final Stool Shiga Toxin I & II - Final Negative Shiga Toxin 1 & 2 01/13/18 23:12 Aerobic Blood Culture - Preliminary Blood Venous No Growth Day 1 Anaerobic Blood Culture - Preliminary No Growth Day 1 01/14/18 14:32 Stool Gross Appearance - Final Stool C. difficile DNA Amplification - Final 027 Presumptive NEGATIVE Toxigenic C.diff NEGATIVE 01/14/18 14:32 Stool Gross Appearance - Final Stool Stool Lactoferrin - Final 01/14/18 14:32 Stool Occult Blood (LAURA) - Final Stool Assess/Plan/Problems-Billing Assessment: This is a 62 yr old with PMHx of pancreatic cancer on chemo who was admitted with a neutropenic fever. Thrombocytopenic. Progression of peritoneal implants and portal vein thrombus on imaging. Cefepime. - Patient Problems (1) Neutropenic fever Current Visit: Yes Status: Acute Code(s): D70.9 - NEUTROPENIA, UNSPECIFIED; R50.81 - FEVER PRESENTING WITH CONDITIONS CLASSIFIED ELSEWHERE SNOMED Code(s) : 140994421 Comment: ANC 600 continue cefepime likely 2/2 aggressive chemo. including 5-FU. (2) Pancreatic cancer Current Visit: No Status: Acute Comment: Discused with Dr. Mccarthy, will see on as originally scheduled if discharged by then. [place] office. recommend no a/c for portal vein thrombus. given progression of peritoneal implants, prognosis is very guarded. Continue Creon (3) Abdominal pain Current Visit: No Status: Acute Code(s): R10.9 - UNSPECIFIED ABDOMINAL PAIN SNOMED Code(s): 33054336 Comment: Improved. e/o portal vein thrombosis. no w/o biliary obstruction c/w opana and breakthrough pain meds (for his chronic back pain) (4) DNR (do not resuscitate) Current Visit: Yes Status: Acute (5) Thrombocytopenia Current Visit: Yes Status: Acute Code(s): D69.6 - THROMBOCYTOPENIA, UNSPECIFIED SNOMED Code(s): 680381053 Comment: likely due to chemo. Continue to monitor. discussed with his heme/ onc Fabio (6) Diabetes Current Visit: No Status: Acute Code(s): E11.9 - TYPE 2 DIABETES MELLITUS WITHOUT COMPLICATIONS SNOMED Code(s): 37621578 Comment: hypergylcemic with opening of gap to 12. restart long acting, at 20U lantus BID. home is 30/35U levemir HgbA1c SSI hold po agents (metformin), intially with lactic acidosis (resolved). (7) HTN (hypertension) Current Visit: No Status: Acute Code(s): I10 - ESSENTIAL (PRIMARY) HYPERTENSION SNOMED Code(s): 82340992 Comment: controlled on metoprolol (8) CAD (coronary artery disease) Current Visit: No Status: Chronic Priority: Medium Code(s): I25.10 - ATHSCL HEART DISEASE OF [place] CORONARY ARTERY W/O ANG PCTRS SNOMED Code(s): 22267966 Comment: Asymptomatic, cont BB. statin aspirin Status and Disposition: inpatient for neutropenic fever.
[2018-01-15] MEDS: oxyCODONE TAB* 5 MG TAB PO PRN ×2 (18:00→21:57)
[2018-01-15] MEDS: Insulin GLARGINE(*) 1 UNITS UNIT SUBCUT SCH (19:42)
[2018-01-16] MEDS: Baclofen TAB* 10 MG PO PRN ×4 (01:20→19:44)
[2018-01-16 07:34] LABS: ABS Basophils 0 10^3/ul (0-0.2); ABS Eosinophils 0 10^3/ul (0-0.6); ABS Lymphocytes 0.4 10^3/ul (1.0-4.8); ABS Monocytes 0.1 10^3/ul (0-0.8); ABS Neutrophils 0.4 10^3/ul (1.5-7.7); ABS Nucleated RBC 0 10^3/ul; Eosinophil % 0.7 % (0-6); Hematocrit 33 % (42-52); Lymphocyte % 41.4 % (25-47); Mean Corpuscular HGB Conc 34 g/dl (31-36); Mean Corpuscular Hemoglobin 28 pg (27-31); Mean Corpuscular Volume 84 fL (80-94); Mean Platelet Volume 7.4 um3 (7.4-10.4); Nucleated Red Blood Cells % 0.3; Platelet Count 44 10^3/ul (150-450); Red Blood Count 3.87 10^6/ul (4.0-5.4); Red Cell Distribution Width 17 % (10.5-15); White Blood Count 0.9 10^3/ul (3.5-10.8)
[2018-01-16 07:50] LABS: EGFR Non-African American 69.8 (>60)
[2018-01-16] MEDS: CREON PO SCH ×3 (08:06→17:33)
[2018-01-16] MEDS: Metoprolol Tartrate TAB* 25 MG PO SCH ×2 (08:07→22:26)
[2018-01-16] MEDS: Omeprazole CAP* 20 MG PO SCH (08:07)
[2018-01-16] MEDS: Atorvastatin* 20 MG TAB PO SCH (08:07)
[2018-01-16] MEDS: Aspirin EC TAB* 81 MG TAB.EC PO SCH (08:07)
[2018-01-16] MEDS: MAGIC M W2 BEN SWISH SPIT SCH ×4 (08:10→22:24)
[2018-01-16] MEDS: MAAL SWISH SPIT SCH ×4 (08:10→22:24)
[2018-01-16] MEDS: NYST SWISH SPIT SCH ×4 (08:10→22:24)
[2018-01-16] MEDS: LIDO MOUTHWASH SWISH SPIT SCH ×4 (08:10→22:24)
[2018-01-16] MEDS: Insulin LISPRO* 1 UNITS UNIT SUBCUT SCH ×3 (09:28→17:34)
[2018-01-16] MEDS: Insulin GLARGINE(*) 1 UNITS UNIT SUBCUT SCH ×2 (09:28→22:24)
[2018-01-16] MEDS: oxyCODONE TAB* 5 MG TAB PO PRN ×2 (10:24→21:01)
[2018-01-16] MEDS: Cefepime 1 GM in Dextrose(*) 1 GM/50 ML BAG IV SCH ×2 (11:50→22:25)
[2018-01-16] MEDS: Morphine VIAL* 4 MG/ML VIAL (1 ml vial) IV PRN ×2 (14:32→19:44)
--- NOTE | 2018-01-16 14:51 | PN ---
Subjective Date of Service: 01/16/18 Interval History: Afebrile ANC fell to 400 from 600 His sister had him served for eviction this AM. Hiccups causing some epigastric pain Objective Active Medications: Aspirin (Aspirin Ec Tab*) 81 mg PO DAILY [facility] Last Admin: 01/16/18 08:07 Dose: 81 mg Atorvastatin Calcium (Lipitor*) 20 mg PO DAILY [facility] Last Admin: 01/16/18 08:07 Dose: 20 mg Baclofen (Lioresal Tab*) 10 mg PO TID PRN PRN Reason: hiccups Last Admin: 01/16/18 14:29 Dose: 10 mg Dextrose (D50w Syringe 50 Ml*) 12.5 gm IV PUSH .FOR FS < 60 - SS PRN PRN Reason: FS < 60 Heparin Sodium (Porcine) (Heparin Flush(*)) 5 ml IV FLUSH DAILY [facility] PRN Reason: Protocol Last Admin: 01/16/18 08:11 Dose: 5 ml Cefepime HCl (Maxipime 1 Gm In Dextrose Duplex (*)) 1 gm in 50 mls @ 100 mls/ hr IV Q12H [facility] Last Admin: 01/16/18 11:50 Dose: 100 mls/hr Insulin Glargine (Lantus(*)) 30 units SUBCUT Q12H [facility] Insulin Human Lispro (Humalog*) 0 units SUBCUT AC [facility] PRN Reason: Protocol Last Admin: 01/16/18 12:20 Dose: 15 units Metoprolol Tartrate (Lopressor Tab*) 37.5 mg PO BID [facility] Last Admin: 01/16/18 08:07 Dose: 37.5 mg Morphine Sulfate (Morphine Vial*) 2 mg IV Q2H PRN PRN Reason: PAIN - MILD Last Admin: 01/16/18 14:32 Dose: 2 mg Multi-Ingredient Mouthwash/Gargle (Magic M W2 Deejay/Maal/Nyst/Lido*) 5 ml SWISH SPIT QID [facility] Last Admin: 01/16/18 11:54 Dose: 5 ml Creon (12k-38k-60k) 2 cap PO TID AC [facility] Last Admin: 01/16/18 11:53 Dose: 2 cap Omeprazole (Prilosec Cap*) 20 mg PO DAILY [facility] Last Admin: 01/16/18 08:07 Dose: 20 mg Ondansetron HCl (Zofran Inj*) 4 mg IV Q4H PRN PRN Reason: NAUSEA/VOMITING Oxycodone HCl (Roxycodone Tab*) 10 mg PO Q2H PRN PRN Reason: PAIN Last Admin: 01/16/18 10:24 Dose: 10 mg Prochlorperazine Edisylate (Compazine Inj*) 10 mg IV Q6H PRN PRN Reason: NAUSEA/VOMITING Last Admin: 01/13/18 20:11 Dose: 10 mg Vital Signs - 8 hr 01/16/18 01/16/18 01/16/18 08:00 10:24 13:20 Respiratory 14 14 14 Rate O2 Sat by Pulse 98 Oximetry 01/16/18 14:32 Respiratory 16 Rate O2 Sat by Pulse Oximetry Oxygen Devices in Use Now: None Appearance: NAD, sitting in chair. Eyes: No Scleral Icterus, PERRLA Ears/Nose/Mouth/Throat: Mucous Membranes Moist Neck: NL Appearance and Movements; NL JVP Respiratory: Symmetrical Chest Expansion and Respiratory Effort, Clear to Auscultation Cardiovascular: NL Sounds; No Murmurs; No JVD Abdominal: - - distended, soft, nontender to palpation. no rebound or guarding. Extremities: No Edema Skin: No Rash or Ulcers, No Nodules or Sclerosis Neurological: Alert and Oriented x 3, NL Sensation Nutrition: Taking PO's Result Diagrams: 01/16/18 07:20 01/16/18 07:20 Additional Lab and Data: Laboratory Results - last 24 hr 01/14/18 01/15/18 01/16/18 09:30 17:24 07:20 WBC RBC Hgb Hct MCV MCH MCHC RDW Plt Count MPV Neut % (Auto) Lymph % (Auto) [place] % (Auto) Eos % (Auto) Baso % (Auto) Absolute Neuts (auto) Absolute Lymphs (auto) Absolute Monos (auto) Absolute Eos (auto) Absolute Basos (auto) Absolute Nucleated RBC Nucleated RBC % Sodium 132 L Potassium 4.0 Chloride 101 Carbon Dioxide 23 Anion Gap 8 BUN 24 Creatinine 1.07 Est GFR ( Amer) 89.8 Est GFR (Non-Af Amer) 69.8 BUN/Creatinine Ratio 22.4 H Glucose 429 H POC Glucose (mg/dL) 192 H POC Glucose Confirm Hemoglobin A1c 8.5 H Calcium 8.0 L 01/16/18 01/16/18 01/16/18 07:20 07:44 08:12 WBC 0.9 L RBC 3.87 L Hgb 11.0 L Hct 33 L MCV 84 MCH 28 MCHC 34 RDW 17 H Plt Count 44 L MPV 7.4 Neut % (Auto) 45.7 Lymph % (Auto) 41.4 Pettis % (Auto) 11.3 H Eos % (Auto) 0.7 Baso % (Auto) 0.9 Absolute Neuts (auto) 0.4 L* Absolute Lymphs (auto) 0.4 L Absolute Monos (auto) 0.1 Absolute Eos (auto) 0 Absolute Basos (auto) 0 Absolute Nucleated RBC 0 Nucleated RBC % 0.3 Sodium Potassium Chloride Carbon Dioxide Anion Gap BUN Creatinine Est GFR ( Amer) Est GFR (Non-Af Amer) BUN/Creatinine Ratio Glucose POC Glucose (mg/dL) > 444 H* POC Glucose Confirm 441 H Hemoglobin A1c Calcium 01/16/18 11:57 WBC RBC Hgb Hct MCV MCH MCHC RDW Plt Count MPV Neut % (Auto) Lymph % (Auto) [place] % (Auto) Eos % (Auto) Baso % (Auto) Absolute Neuts (auto) Absolute Lymphs (auto) Absolute Monos (auto) Absolute Eos (auto) Absolute Basos (auto) Absolute Nucleated RBC Nucleated RBC % Sodium Potassium Chloride Carbon Dioxide Anion Gap BUN Creatinine Est GFR ( Amer) Est GFR (Non-Af Amer) BUN/Creatinine Ratio Glucose POC Glucose (mg/dL) 401 H* POC Glucose Confirm Hemoglobin A1c Calcium Microbiology and Other Data: Microbiology 01/14/18 14:32 Stool Stool Culture - Final 01/14/18 14:32 Stool Stool Gross Appearance - Final 01/14/18 14:32 Stool Shiga Toxin I & II - Final Negative Shiga Toxin 1 & 2 01/13/18 23:12 Blood Venous Aerobic Blood Culture - Preliminary No Growth Day 2 01/13/18 23:12 Blood Venous Anaerobic Blood Culture - Preliminary No Growth Day 2 01/13/18 20:30 Blood Venous Aerobic Blood Culture - Preliminary No Growth Day 2 01/13/18 20:30 Blood Venous Anaerobic Blood Culture - Preliminary No Growth Day 2 01/13/18 20:29 Urine Urine Culture - Final 01/14/18 14:32 Stool Stool Gross Appearance - Final 01/14/18 14:32 Stool C. difficile DNA Amplification - Final 027 Presumptive NEGATIVE Toxigenic C.diff NEGATIVE 01/14/18 14:32 Stool Stool Gross Appearance - Final 01/14/18 14:32 Stool Stool Lactoferrin - Final 01/14/18 14:32 Stool Stool Occult Blood (LAURA) - Final Assess/Plan/Problems-Billing Assessment: 62 yr old with PMHx of pancreatic cancer on recent chemo who was admitted with a neutropenic fever. Thrombocytopenic. Progression of peritoneal implants/ carcinomatosis and e/o portal vein thrombus on imaging. Cefepime. - Patient Problems (1) Neutropenic fever Current Visit: Yes Status: Acute Code(s): D70.9 - NEUTROPENIA, UNSPECIFIED; R50.81 - FEVER PRESENTING WITH CONDITIONS CLASSIFIED ELSEWHERE SNOMED Code(s) : 270308699 Comment: ANC 400 from 600 continue cefepime likely 2/2 aggressive chemo. including 5-FU. (2) Pancreatic cancer Current Visit: No Status: Acute Comment: Discused with Dr. Mccarthy, will see on as originally scheduled if discharged by then(unlikely). [place] office. recommend no a/c for portal vein thrombus given thrombocytopenia. repeat LFTs in AM given progression of peritoneal implants/carcinomatosis, prognosis is very guarded. Continue Creon Had irina discussion at bedside about worsening prognosis and probability that chemotherapy is failing. Pt accepting though still wanting to "fight to the very end". (3) Abdominal pain Current Visit: No Status: Acute Code(s): R10.9 - UNSPECIFIED ABDOMINAL PAIN SNOMED Code(s): 57688445 Comment: e/o portal vein thrombosis. Pt with ascites and peritoneal implants. not tense on exam. no w/o biliary obstruction. repeat LFTs tomorrow. c/w opana and breakthrough pain meds (for his chronic back pain) (4) DNR (do not resuscitate) Current Visit: Yes Status: Acute (5) Thrombocytopenia Current Visit: Yes Status: Acute Code(s): D69.6 - THROMBOCYTOPENIA, UNSPECIFIED SNOMED Code(s): 981317803 Comment: likely due to chemo. Continue to monitor. discussed with his heme/ onc Fabio (6) Diabetes Current Visit: No Status: Acute Code(s): E11.9 - TYPE 2 DIABETES MELLITUS WITHOUT COMPLICATIONS SNOMED Code(s): 48468295 Comment: hypergylcemic to 400 increase from 20U lantus BID to 32U BID. home is 30/35U levemir with 05/23/10 humalog qac A1C 8.5 SSI hold po agents (metformin), intially with lactic acidosis (resolved). (7) HTN (hypertension) Current Visit: No Status: Acute Code(s): I10 - ESSENTIAL (PRIMARY) HYPERTENSION SNOMED Code(s): 00360048 Comment: controlled on metoprolol (8) CAD (coronary artery disease) Current Visit: No Status: Chronic Priority: Medium Code(s): I25.10 - ATHSCL HEART DISEASE OF [place] CORONARY ARTERY W/O ANG PCTRS SNOMED Code(s): 24418923 Comment: Asymptomatic, cont BB. statin aspirin Status and Disposition: inpatient for neutropenic fever.
[2018-01-16] MEDS ORDERED: Insulin GLARGINE(*) 1 UNITS UNIT SUBCUT SCH (21:00)
[2018-01-16] MEDS ORDERED: Ondansetron 40 MG VIAL* 2 MG/ML 20 ML VIAL IV PRN (22:05)
[2018-01-17] MEDS: Morphine VIAL* 4 MG/ML VIAL (1 ml vial) IV PRN ×7 (03:38→22:50)
[2018-01-17 04:25] LABS: ABS Basophils 0 10^3/ul (0-0.2); ABS Eosinophils 0 10^3/ul (0-0.6); ABS Lymphocytes 0.4 10^3/ul (1.0-4.8); ABS Monocytes 0.2 10^3/ul (0-0.8); ABS Neutrophils 0.3 10^3/ul (1.5-7.7); ABS Nucleated RBC 0 10^3/ul; Eosinophil % 0.7 % (0-6); Hematocrit 35 % (42-52); Hemoglobin 11.8 g/dl (14.0-18.0); Lymphocyte % 51.1 % (25-47); Mean Corpuscular HGB Conc 34 g/dl (31-36); Mean Corpuscular Hemoglobin 28 pg (27-31); Mean Corpuscular Volume 84 fL (80-94); Mean Platelet Volume 7.9 um3 (7.4-10.4); Nucleated Red Blood Cells % 0.4; Platelet Count 60 10^3/ul (150-450); Red Blood Count 4.19 10^6/ul (4.0-5.4); Red Cell Distribution Width 17 % (10.5-15); White Blood Count 0.9 10^3/ul (3.5-10.8)
[2018-01-17 04:32] LABS: EGFR Non-African American 81.1 (>60)
[2018-01-17] MEDS: Omeprazole CAP* 20 MG PO SCH (08:27)
[2018-01-17] MEDS: Metoprolol Tartrate TAB* 25 MG PO SCH ×2 (08:27→20:23)
[2018-01-17] MEDS: Aspirin EC TAB* 81 MG TAB.EC PO SCH (08:28)
[2018-01-17] MEDS: CREON PO SCH ×3 (08:28→17:16)
[2018-01-17] MEDS: Atorvastatin* 20 MG TAB PO SCH (08:28)
[2018-01-17] MEDS: Insulin GLARGINE(*) 1 UNITS UNIT SUBCUT SCH ×2 (08:29→20:24)
[2018-01-17] MEDS: Insulin LISPRO* 1 UNITS UNIT SUBCUT SCH ×3 (08:29→17:16)
[2018-01-17] MEDS: MAGIC M W2 BEN SWISH SPIT SCH ×4 (08:30→20:23)
[2018-01-17] MEDS: MAAL SWISH SPIT SCH ×4 (08:30→20:23)
[2018-01-17] MEDS: NYST SWISH SPIT SCH ×4 (08:30→20:23)
[2018-01-17] MEDS: LIDO MOUTHWASH SWISH SPIT SCH ×4 (08:30→20:23)
[2018-01-17] MEDS: oxyCODONE TAB* 5 MG TAB PO PRN ×3 (09:21→23:16)
[2018-01-17] MEDS: Baclofen TAB* 10 MG PO PRN ×2 (09:22→14:12)
[2018-01-17] MEDS: Cefepime 1 GM in Dextrose(*) 1 GM/50 ML BAG IV SCH ×2 (12:08→23:16)
--- NOTE | 2018-01-17 17:50 | PN ---
Subjective Date of Service: 01/17/18 Interval History: ANC to 300, afebrile. still getting hiccups after eating then abdominal pain, severe bur well controlled after prn morphine. in better spirits. Sister in Law and brother at bedside and offered to put him up when ready for discharge. Objective Active Medications: Aspirin (Aspirin Ec Tab*) 81 mg PO DAILY [facility] Last Admin: 01/17/18 08:28 Dose: 81 mg Atorvastatin Calcium (Lipitor*) 20 mg PO DAILY [facility] Last Admin: 01/17/18 08:28 Dose: 20 mg Baclofen (Lioresal Tab*) 10 mg PO TID PRN PRN Reason: hiccups Last Admin: 01/17/18 14:12 Dose: 10 mg Dextrose (D50w Syringe 50 Ml*) 12.5 gm IV PUSH .FOR FS < 60 - SS PRN PRN Reason: FS < 60 Heparin Sodium (Porcine) (Heparin Flush(*)) 5 ml IV FLUSH DAILY [facility] PRN Reason: Protocol Last Admin: 01/17/18 08:30 Dose: 5 ml Cefepime HCl (Maxipime 1 Gm In Dextrose Duplex (*)) 1 gm in 50 mls @ 100 mls/ hr IV Q12H [facility] Last Admin: 01/17/18 12:08 Dose: 100 mls/hr Insulin Glargine (Lantus(*)) 32 units SUBCUT Q12H [facility] Last Admin: 01/17/18 08:29 Dose: 32 unit Insulin Human Lispro (Humalog*) 0 units SUBCUT [facility] PRN Reason: Protocol Last Admin: 01/17/18 17:16 Dose: 2 units Metoprolol Tartrate (Lopressor Tab*) 37.5 mg PO BID [facility] Last Admin: 01/17/18 08:27 Dose: 37.5 mg Morphine Sulfate (Morphine Vial*) 2 mg IV Q2H PRN PRN Reason: PAIN - MILD Last Admin: 01/17/18 16:13 Dose: 2 mg Multi-Ingredient Mouthwash/Gargle (Magic M W2 Deejay/Maal/Nyst/Lido*) 5 ml SWISH SPIT QID [facility] Last Admin: 01/17/18 17:16 Dose: 5 ml Creon (12k-38k-60k) 2 cap PO TID [facility] Last Admin: 01/17/18 17:16 Dose: 2 cap Omeprazole (Prilosec Cap*) 20 mg PO DAILY [facility] Last Admin: 01/17/18 08:27 Dose: 20 mg Ondansetron HCl (Zofran 40 Mg Vial*) 4 mg IV Q4H PRN PRN Reason: NAUSEA/VOMITING Last Admin: 01/16/18 22:37 Dose: 4 mg Ondansetron HCl (Zofran Odt Tab*) 4 mg SL Q6H PRN PRN Reason: NAUSEA/VOMITING Oxycodone HCl (Roxycodone Tab*) 10 mg PO Q2H PRN PRN Reason: PAIN Last Admin: 01/17/18 09:21 Dose: 10 mg Prochlorperazine Edisylate (Compazine Inj*) 10 mg IV Q6H PRN PRN Reason: NAUSEA/VOMITING Last Admin: 01/13/18 20:11 Dose: 10 mg Vital Signs - 8 hr 01/17/18 01/17/18 01/17/18 09:55 11:18 12:01 Temperature 98.6 F Pulse Rate 79 Respiratory 14 18 16 Rate Blood Pressure 105/72 (mmHg) O2 Sat by Pulse 99 Oximetry 01/17/18 01/17/18 01/17/18 14:12 15:28 16:13 Temperature Pulse Rate Respiratory 16 16 16 Rate Blood Pressure (mmHg) O2 Sat by Pulse Oximetry Oxygen Devices in Use Now: None Appearance: NAD Eyes: No Scleral Icterus, PERRLA Ears/Nose/Mouth/Throat: Mucous Membranes Moist, - - very small ulcer at hard palate and left inner cheek. Neck: NL Appearance and Movements; NL JVP Respiratory: Symmetrical Chest Expansion and Respiratory Effort, Clear to Auscultation Cardiovascular: NL Sounds; No Murmurs; No JVD, RRR Abdominal: No Hepatosplenomegaly, - - epigastric scar, soft, distended, nontender to palpation. Extremities: No Edema Skin: No Rash or Ulcers Neurological: Alert and Oriented x 3, NL Sensation, NL Muscle Strength and Tone Nutrition: Taking PO's Result Diagrams: 01/17/18 03:49 01/17/18 03:49 Additional Lab and Data: Laboratory Results - last 24 hr 01/17/18 01/17/18 01/17/18 03:49 03:49 07:51 WBC 0.9 L RBC 4.19 Hgb 11.8 L Hct 35 L MCV 84 MCH 28 MCHC 34 RDW 17 H Plt Count 60 L MPV 7.9 Neut % (Auto) 30.0 L Lymph % (Auto) 51.1 H [place] % (Auto) 17.6 H Eos % (Auto) 0.7 Baso % (Auto) 0.6 Absolute Neuts (auto) 0.3 L* Absolute Lymphs (auto) 0.4 L Absolute Monos (auto) 0.2 Absolute Eos (auto) 0 Absolute Basos (auto) 0 Absolute Nucleated RBC 0 Nucleated RBC % 0.4 Sodium 136 L Potassium 3.5 Chloride 104 Carbon Dioxide 23 Anion Gap 9 BUN 24 Creatinine 0.94 Est GFR ( Amer) 104.2 Est GFR (Non-Af Amer) 81.1 BUN/Creatinine Ratio 25.5 H Glucose 216 H POC Glucose (mg/dL) 221 H Calcium 7.9 L Total Bilirubin 0.70 Direct Bilirubin 0.20 H Indirect Bilirubin 0.5 AST 37 ALT 59 H Alkaline Phosphatase 149 H Total Protein 5.4 L Albumin 2.9 L Globulin 2.5 Albumin/Globulin Ratio 1.2 01/17/18 01/17/18 11:46 16:45 WBC RBC Hgb Hct MCV MCH MCHC RDW Plt Count MPV Neut % (Auto) Lymph % (Auto) [place] % (Auto) Eos % (Auto) Baso % (Auto) Absolute Neuts (auto) Absolute Lymphs (auto) Absolute Monos (auto) Absolute Eos (auto) Absolute Basos (auto) Absolute Nucleated RBC Nucleated RBC % Sodium Potassium Chloride Carbon Dioxide Anion Gap BUN Creatinine Est GFR ( Amer) Est GFR (Non-Af Amer) BUN/Creatinine Ratio Glucose POC Glucose (mg/dL) 191 H 140 H Calcium Total Bilirubin Direct Bilirubin Indirect Bilirubin AST ALT Alkaline Phosphatase Total Protein Albumin Globulin Albumin/Globulin Ratio Microbiology and Other Data: Microbiology 01/13/18 23:12 Blood Venous Aerobic Blood Culture - Preliminary No Growth Day 3 01/13/18 23:12 Blood Venous Anaerobic Blood Culture - Preliminary No Growth Day 3 01/13/18 20:30 Blood Venous Aerobic Blood Culture - Preliminary No Growth Day 3 01/13/18 20:30 Blood Venous Anaerobic Blood Culture - Preliminary No Growth Day 3 01/14/18 14:32 Stool Stool Culture - Final 01/14/18 14:32 Stool Stool Gross Appearance - Final 01/14/18 14:32 Stool Shiga Toxin I & II - Final Negative Shiga Toxin 1 & 2 01/13/18 20:29 Urine Urine Culture - Final 01/14/18 14:32 Stool Stool Gross Appearance - Final 01/14/18 14:32 Stool C. difficile DNA Amplification - Final 027 Presumptive NEGATIVE Toxigenic C.diff NEGATIVE 01/14/18 14:32 Stool Stool Gross Appearance - Final 01/14/18 14:32 Stool Stool Lactoferrin - Final 01/14/18 14:32 Stool Stool Occult Blood ([facility]URA) - Final Assess/Plan/Problems-Billing Assessment: 62 yr old with PMHx of pancreatic cancer on recent chemo who was admitted with a severe neutropenia and initial fever. Thrombocytopenic. Progression of peritoneal implants/carcinomatosis and e/o portal vein thrombus on imaging. Cefepime. - Patient Problems (1) Neutropenic fever Current Visit: Yes Status: Acute Code(s): D70.9 - NEUTROPENIA, UNSPECIFIED; R50.81 - FEVER PRESENTING WITH CONDITIONS CLASSIFIED ELSEWHERE SNOMED Code(s) : 663185484 Comment: ANC 300 continue cefepime likely 2/2 aggressive chemo. including 5-FU. (2) Pancreatic cancer Current Visit: No Status: Acute Comment: Discused with Dr. Mccarthy on , originally scheduled to see on as originally scheduled if discharged by then(unlikely). [place] office. recommend no a/c for portal vein thrombus given thrombocytopenia. alkphos and ALT slightly higher. given progression of peritoneal implants/carcinomatosis, prognosis is very guarded. Continue Creon Had irina discussion at bedside about worsening prognosis and probability that chemotherapy is failing. Pt accepting though still wanting to "fight to the very end". (3) Abdominal pain Current Visit: No Status: Acute Code(s): R10.9 - UNSPECIFIED ABDOMINAL PAIN SNOMED Code(s): 34372771 Comment: e/o portal vein thrombosis. Pt with ascites and peritoneal implants. not tense on exam. no w/o biliary obstruction. c/w opana and breakthrough pain meds (for his chronic back pain) (4) DNR (do not resuscitate) Current Visit: Yes Status: Acute (5) Thrombocytopenia Current Visit: Yes Status: Acute Code(s): D69.6 - THROMBOCYTOPENIA, UNSPECIFIED SNOMED Code(s): 794676434 Comment: likely due to chemo. Continue to monitor. discussed with his heme/ onc Fabio (6) Diabetes Current Visit: No Status: Acute Code(s): E11.9 - TYPE 2 DIABETES MELLITUS WITHOUT COMPLICATIONS SNOMED Code(s): 89611257 Comment: better controlled. Lantus 32U BID. home is 30/35U levemir with 05/23/10 humalog qac A1C 8.5 SSI hold po agents (metformin), intially with lactic acidosis (resolved). (7) HTN (hypertension) Current Visit: No Status: Acute Code(s): I10 - ESSENTIAL (PRIMARY) HYPERTENSION SNOMED Code(s): 80250985 Comment: controlled on metoprolol (8) CAD (coronary artery disease) Current Visit: No Status: Chronic Priority: Medium Code(s): I25.10 - ATHSCL HEART DISEASE OF [place] CORONARY ARTERY W/O ANG PCTRS SNOMED Code(s): 14417677 Comment: Asymptomatic, cont BB. statin aspirin Status and Disposition: inpatient for severe neutropenia, initially with fever.
[2018-01-18] MEDS: Morphine VIAL* 4 MG/ML VIAL (1 ml vial) IV PRN ×9 (01:30→23:55)
[2018-01-18 07:06] LABS: ABS Basophils 0 10^3/ul (0-0.2); ABS Eosinophils 0 10^3/ul (0-0.6); ABS Lymphocytes 0.4 10^3/ul (1.0-4.8); ABS Monocytes 0.2 10^3/ul (0-0.8); ABS Neutrophils 0.2 10^3/ul (1.5-7.7); ABS Nucleated RBC 0 10^3/ul; Eosinophil % 0.6 % (0-6); Hematocrit 33 % (42-52); Hemoglobin 11.3 g/dl (14.0-18.0); Lymphocyte % 44.4 % (25-47); Mean Corpuscular HGB Conc 34 g/dl (31-36); Mean Corpuscular Hemoglobin 28 pg (27-31); Mean Corpuscular Volume 84 fL (80-94); Mean Platelet Volume 7.3 um3 (7.4-10.4); Nucleated Red Blood Cells % 0.4; Platelet Count 55 10^3/ul (150-450); Red Blood Count 3.97 10^6/ul (4.0-5.4); Red Cell Distribution Width 17 % (10.5-15); White Blood Count 0.9 10^3/ul (3.5-10.8)
[2018-01-18] MEDS: CREON PO SCH ×3 (09:05→17:26)
[2018-01-18] MEDS: oxyCODONE TAB* 5 MG TAB PO PRN ×4 (09:05→23:28)
[2018-01-18] MEDS: Omeprazole CAP* 20 MG PO SCH (09:07)
[2018-01-18] MEDS: Metoprolol Tartrate TAB* 25 MG PO SCH ×2 (09:07→22:04)
[2018-01-18] MEDS: Atorvastatin* 20 MG TAB PO SCH (09:07)
[2018-01-18] MEDS: Insulin GLARGINE(*) 1 UNITS UNIT SUBCUT SCH (09:08)
[2018-01-18] MEDS: Aspirin EC TAB* 81 MG TAB.EC PO SCH (09:08)
[2018-01-18] MEDS: MAGIC M W2 BEN SWISH SPIT SCH ×4 (09:31→22:09)
[2018-01-18] MEDS: MAAL SWISH SPIT SCH ×4 (09:31→22:09)
[2018-01-18] MEDS: LIDO MOUTHWASH SWISH SPIT SCH ×4 (09:31→22:09)
[2018-01-18] MEDS: NYST SWISH SPIT SCH ×4 (09:31→22:09)
[2018-01-18] MEDS: Insulin LISPRO* 1 UNITS UNIT SUBCUT SCH ×3 (09:32→17:37)
--- NOTE | 2018-01-18 10:38 | CONSULT ---
Consultation - Reason for Consultation Reason for Consultation: neutropenic fevers in pancreatic cancer Ordering Provider: Parag Kemp Chief Complaint: fevers History of Present Illness: 62 yo M w metastatic pancreatic cancer presenting with neutropenic fever sp cycle 2 of mFOLFIRINOX. Neptali initially presened with pancreatic cancer in 2016. He was apparently borderline resectable at the time and so had neoadjuvant mFOLFIRINOX. He reports they planned a whipple but when he was opened up there was too much vessel involvement and so he had biliary diversion but no whipple. He had adjuvant xeloda/RT and was followed with observation until progression in December of this year. He recently resumed mFOLFIRINOX and reports that on cycle 2 his 5FU dose was increased. He developed marked mucositis and fevers, along with progressive abdominal pain, prompting visit to our ER. Here he was found to be pancytopenic and started on cefepime. Given abdominal pain he had a CT A//P, which showed a port vein thrombosis and peritoneal implants. Unfortunately given his marked thrombocytopenia he can not be anticoagulated. He was also noted to be guaiac positive, though again in the setting of thrombocytopenia and aspirin use. He reports that he is feeling much better than admission, with improving mucositis. He notes that prior to resuming chemotherapy he actually was fully independent and enjoying a good quality of life. The last 2 weeks have been difficult related to mucositis and difficulty eating as well as abdominal pain, however he is very clear that he intends to continue doing chemotherapy. He denies neuropathy at this time. Allergies/Medications Medication: Current Medications Aspirin (Aspirin Ec Tab*) 81 mg PO DAILY [facility] Last Admin: 01/18/18 09:08 Dose: 81 mg Atorvastatin Calcium (Lipitor*) 20 mg PO DAILY [facility] Last Admin: 01/18/18 09:07 Dose: 20 mg Baclofen (Lioresal Tab*) 10 mg PO TID PRN PRN Reason: hiccups Last Admin: 01/17/18 14:12 Dose: 10 mg Dextrose (D50w Syringe 50 Ml*) 12.5 gm IV PUSH .FOR FS < 60 - SS PRN PRN Reason: FS < 60 Heparin Sodium (Porcine) (Heparin Flush(*)) 5 ml IV FLUSH DAILY [facility] PRN Reason: Protocol Last Admin: 01/18/18 09:08 Dose: 5 ml Cefepime HCl (Maxipime 1 Gm In Dextrose Duplex (*)) 1 gm in 50 mls @ 100 mls/ hr IV Q12H [facility] Last Admin: 01/17/18 23:16 Dose: 100 mls/hr Insulin Glargine (Lantus(*)) 28 units SUBCUT Q12H [facility] Insulin Human Lispro (Humalog*) 0 units SUBCUT [facility] PRN Reason: Protocol Last Admin: 01/18/18 09:32 Dose: Not Given Metoprolol Tartrate (Lopressor Tab*) 37.5 mg PO BID [facility] Last Admin: 01/18/18 09:07 Dose: 37.5 mg Morphine Sulfate (Morphine Vial*) 2 mg IV Q2H PRN PRN Reason: PAIN - MILD Last Admin: 01/18/18 09:23 Dose: 2 mg Multi-Ingredient Mouthwash/Gargle (Magic M W2 Deejay/Maal/Nyst/Lido*) 5 ml SWISH SPIT QID [facility] Last Admin: 01/18/18 09:31 Dose: 5 ml Creon (12k-38k-60k) 2 cap PO TID [facility] Last Admin: 01/18/18 09:05 Dose: 2 cap Omeprazole (Prilosec Cap*) 20 mg PO DAILY [facility] Last Admin: 01/18/18 09:07 Dose: 20 mg Ondansetron HCl (Zofran 40 Mg Vial*) 4 mg IV Q4H PRN PRN Reason: NAUSEA/VOMITING Last Admin: 01/16/18 22:37 Dose: 4 mg Ondansetron HCl (Zofran Odt Tab*) 4 mg SL Q6H PRN PRN Reason: NAUSEA/VOMITING Oxycodone HCl (Roxycodone Tab*) 10 mg PO Q2H PRN PRN Reason: PAIN Last Admin: 01/18/18 09:05 Dose: 10 mg Prochlorperazine Edisylate (Compazine Inj*) 10 mg IV Q6H PRN PRN Reason: NAUSEA/VOMITING Last Admin: 01/13/18 20:11 Dose: 10 mg Allergies/Adverse Reactions: Allergies Allergy/AdvReac Type Severity Reaction Status Date / Time celecoxib [From Celebrex] Allergy Intermediate Swelling Verified 01/01/18 22:29 pregabalin [From Lyrica] Allergy Intermediate Swelling Verified 01/01/18 22:29 quinine Allergy Intermediate Swelling Verified 01/01/18 22:29 History - Past Medical History Other History: GERD. DM. HTN. hyperlipid. CAD. sp biliary stenting, no whipple. laminectomy. knee surgery - Family History Other Family History: noncontributory - Social History Other Social History: prior TOB and eTOH abuse, remote Review of Systems - Review of Systems Constitutional Symptoms: Positive: Fatigue, Fever Dermatology: Positive: Normal HEENT: Positive: Normal Eyes: Positive: Normal Thyroid: Positive: Normal Pulmonary: Positive: Normal Cardiology: Positive: Normal Gastroenterology: Positive: Other - fullness, discomfort that radiates to back, relieved with pain meds. Musculoskeletal: Positive: Low Back Pain Endocrinology: Positive: Normal Hematologic/Lymphatic: Positive: Anemia Neurology: Positive: Normal Psychiatry: Positive: Normal Physical Exam - Physical Exam Physical Examination: Vital Signs Temp Pulse Resp BP Pulse Ox 99.0 F 86 16 101/72 97 01/18/18 07:23 01/18/18 07:23 01/18/18 09:23 01/18/18 07:23 01/18/18 07:23 sitting up in nad morbidly obese perr eomi op mild mucositis cta bl s1 s2 nl obese full but not clearly tender 1+ LE edema bilaterally A+O x 3, nonfocal neurological exam Results - Lab Results Lab Results: 01/14/18 01/14/18 01/15/18 09:30 09:30 11:38 WBC RBC Hgb Hct MCV MCH MCHC RDW Plt Count MPV Neut % (Auto) Lymph % (Auto) [place] % (Auto) Eos % (Auto) Baso % (Auto) Absolute Neuts (auto) Absolute Lymphs (auto) Absolute Monos (auto) Absolute Eos (auto) Absolute Basos (auto) Absolute Nucleated RBC Nucleated RBC % Hem Pathologist Commnt Sodium Potassium Chloride Carbon Dioxide Anion Gap BUN Creatinine Est GFR ( Amer) Est GFR (Non-Af Amer) BUN/Creatinine Ratio Glucose POC Glucose (mg/dL) 301 H POC Glucose Confirm Hemoglobin A1c 8.5 H Calcium Total Bilirubin Direct Bilirubin Indirect Bilirubin AST ALT Alkaline Phosphatase Total Protein Albumin Globulin Albumin/Globulin Ratio 01/15/18 01/16/18 01/16/18 17:24 07:20 07:20 WBC 0.9 L RBC 3.87 L Hgb 11.0 L Hct 33 L MCV 84 MCH 28 MCHC 34 RDW 17 H Plt Count 44 L MPV 7.4 Neut % (Auto) 45.7 Lymph % (Auto) 41.4 [place] % (Auto) 11.3 H Eos % (Auto) 0.7 Baso % (Auto) 0.9 Absolute Neuts (auto) 0.4 L* Absolute Lymphs (auto) 0.4 L Absolute Monos (auto) 0.1 Absolute Eos (auto) 0 Absolute Basos (auto) 0 Absolute Nucleated RBC 0 Nucleated RBC % 0.3 Hem Pathologist Commnt Sodium 132 L Potassium 4.0 Chloride 101 Carbon Dioxide 23 Anion Gap 8 BUN 24 Creatinine 1.07 Est GFR ( Amer) 89.8 Est GFR (Non-Af Amer) 69.8 BUN/Creatinine Ratio 22.4 H Glucose 429 H POC Glucose (mg/dL) 192 H POC Glucose Confirm Hemoglobin A1c Calcium 8.0 L Total Bilirubin Direct Bilirubin Indirect Bilirubin AST ALT Alkaline Phosphatase Total Protein Albumin Globulin Albumin/Globulin Ratio 01/16/18 01/16/18 01/16/18 07:44 08:12 11:57 WBC RBC Hgb Hct MCV MCH MCHC RDW Plt Count MPV Neut % (Auto) Lymph % (Auto) [place] % (Auto) Eos % (Auto) Baso % (Auto) Absolute Neuts (auto) Absolute Lymphs (auto) Absolute Monos (auto) Absolute Eos (auto) Absolute Basos (auto) Absolute Nucleated RBC Nucleated RBC % Hem Pathologist Commnt Sodium Potassium Chloride Carbon Dioxide Anion Gap BUN Creatinine Est GFR ( Amer) Est GFR (Non-Af Amer) BUN/Creatinine Ratio Glucose POC Glucose (mg/dL) > 444 H* 401 H* POC Glucose Confirm 441 H Hemoglobin A1c Calcium Total Bilirubin Direct Bilirubin Indirect Bilirubin AST ALT Alkaline Phosphatase Total Protein Albumin Globulin Albumin/Globulin Ratio 01/16/18 01/17/18 01/17/18 17:12 03:49 03:49 WBC 0.9 L RBC 4.19 Hgb 11.8 L Hct 35 L MCV 84 MCH 28 MCHC 34 RDW 17 H Plt Count 60 L MPV 7.9 Neut % (Auto) 30.0 L Lymph % (Auto) 51.1 H [place] % (Auto) 17.6 H Eos % (Auto) 0.7 Baso % (Auto) 0.6 Absolute Neuts (auto) 0.3 L* Absolute Lymphs (auto) 0.4 L Absolute Monos (auto) 0.2 Absolute Eos (auto) 0 Absolute Basos (auto) 0 Absolute Nucleated RBC 0 Nucleated RBC % 0.4 Hem Pathologist Commnt Sodium 136 L Potassium 3.5 Chloride 104 Carbon Dioxide 23 Anion Gap 9 BUN 24 Creatinine 0.94 Est GFR ( Amer) 104.2 Est GFR (Non-Af Amer) 81.1 BUN/Creatinine Ratio 25.5 H Glucose 216 H POC Glucose (mg/dL) 243 H POC Glucose Confirm Hemoglobin A1c Calcium 7.9 L Total Bilirubin 0.70 Direct Bilirubin 0.20 H Indirect Bilirubin 0.5 AST 37 ALT 59 H Alkaline Phosphatase 149 H Total Protein 5.4 L Albumin 2.9 L Globulin 2.5 Albumin/Globulin Ratio 1.2 01/17/18 01/17/18 01/17/18 07:51 11:46 16:45 WBC RBC Hgb Hct MCV MCH MCHC RDW Plt Count MPV Neut % (Auto) Lymph % (Auto) [place] % (Auto) Eos % (Auto) Baso % (Auto) Absolute Neuts (auto) Absolute Lymphs (auto) Absolute Monos (auto) Absolute Eos (auto) Absolute Basos (auto) Absolute Nucleated RBC Nucleated RBC % Hem Pathologist Commnt Sodium Potassium Chloride Carbon Dioxide Anion Gap BUN Creatinine Est GFR ( Amer) Est GFR (Non-Af Amer) BUN/Creatinine Ratio Glucose POC Glucose (mg/dL) 221 H 191 H 140 H POC Glucose Confirm Hemoglobin A1c Calcium Total Bilirubin Direct Bilirubin Indirect Bilirubin AST ALT Alkaline Phosphatase Total Protein Albumin Globulin Albumin/Globulin Ratio 01/18/18 01/18/18 06:52 08:08 WBC 0.9 L RBC 3.97 L Hgb 11.3 L Hct 33 L MCV 84 MCH 28 MCHC 34 RDW 17 H Plt Count 55 L MPV 7.3 L Neut % (Auto) 27.7 L Lymph % (Auto) 44.4 [place] % (Auto) 26.1 H Eos % (Auto) 0.6 Baso % (Auto) 1.2 Absolute Neuts (auto) 0.2 L* Absolute Lymphs (auto) 0.4 L Absolute Monos (auto) 0.2 Absolute Eos (auto) 0 Absolute Basos (auto) 0 Absolute Nucleated RBC 0 Nucleated RBC % 0.4 Hem Pathologist Commnt Sodium Potassium Chloride Carbon Dioxide Anion Gap BUN Creatinine Est GFR ( Amer) Est GFR (Non-Af Amer) BUN/Creatinine Ratio Glucose POC Glucose (mg/dL) 64 L POC Glucose Confirm Hemoglobin A1c Calcium Total Bilirubin Direct Bilirubin Indirect Bilirubin AST ALT Alkaline Phosphatase Total Protein Albumin Globulin Albumin/Globulin Ratio Assessment and Plan Impression: 62 yo M w advanced pancreatic cancer recently restarting palliative chemotherapy with mFOLFIRINOX admitted after cycle 2 with pancytopenia, neutropenic fevers, mucositis, and a portal vein thrombosis. We discussed this at length. Despite his recent imaging I would not call this a progression after only 2 doses of chemotherapy. He reports a good performance status and QOL prior to resuming chemotherapy, and does seem appropriate to me for further palliative therapy. One could consider dose reduction for cycle 3 or switching to gemcitabine/abraxane. He is very interested in pursuing further therapy. In terms of his current febrile neutropenia, he will need to recover his counts. This may take longer given his likely underlying MDS and prior chemotherapy exposure. Given his guaiac positive stools I would consider stopping his aspirin. Unfortunately with this degree of thrombocytopenia he can not be anticoagulated for his portal vein thrombosis. He should remain on antibiotics until his ANC is 1000 or at least 800 and rising.
[2018-01-18] MEDS: Cefepime 1 GM in Dextrose(*) 1 GM/50 ML BAG IV SCH (10:59)
[2018-01-18] MEDS: Ondansetron ODT TAB* 4 MG SL PRN ×2 (14:48→22:19)
--- NOTE | 2018-01-18 15:30 | PN ---
Subjective Date of Service: 01/18/18 Interval History: ANC down to 200, Afebrile. Hiccuping -> abdominal pain -> quickly resolved after morphine administration. Heme/onc consulted. PLT 55. Objective Active Medications: Atorvastatin Calcium (Lipitor*) 20 mg PO DAILY [facility] Last Admin: 01/18/18 09:07 Dose: 20 mg Baclofen (Lioresal Tab*) 10 mg PO TID PRN PRN Reason: hiccups Last Admin: 01/17/18 14:12 Dose: 10 mg Dextrose (D50w Syringe 50 Ml*) 12.5 gm IV PUSH .FOR FS < 60 - SS PRN PRN Reason: FS < 60 Heparin Sodium (Porcine) (Heparin Flush Port ([place])) 5 ml IV FLUSH DAILY [facility] PRN Reason: Protocol Cefepime HCl (Maxipime 1 Gm In Dextrose Duplex (*)) 1 gm in 50 mls @ 100 mls/ hr IV Q12H [facility] Last Admin: 01/18/18 10:59 Dose: 100 mls/hr Insulin Glargine (Lantus(*)) 28 units SUBCUT Q12H [facility] Insulin Human Lispro (Humalog*) 0 units SUBCUT AC [facility] PRN Reason: Protocol Last Admin: 01/18/18 12:12 Dose: Not Given Metoprolol Tartrate (Lopressor Tab*) 37.5 mg PO BID [facility] Last Admin: 01/18/18 09:07 Dose: 37.5 mg Morphine Sulfate (Morphine Vial*) 2 mg IV Q2H PRN PRN Reason: PAIN - MILD Last Admin: 01/18/18 14:42 Dose: 2 mg Multi-Ingredient Mouthwash/Gargle (Magic M W2 Deejay/Maal/Nyst/Lido*) 5 ml SWISH SPIT QID [facility] Last Admin: 01/18/18 14:34 Dose: 5 ml Creon (12k-38k-60k) 2 cap PO TID [facility] Last Admin: 01/18/18 12:38 Dose: 2 cap Omeprazole (Prilosec Cap*) 20 mg PO DAILY [facility] Last Admin: 01/18/18 09:07 Dose: 20 mg Ondansetron HCl (Zofran 40 Mg Vial*) 4 mg IV Q4H PRN PRN Reason: NAUSEA/VOMITING Last Admin: 01/16/18 22:37 Dose: 4 mg Ondansetron HCl (Zofran Odt Tab*) 4 mg SL Q6H PRN PRN Reason: NAUSEA/VOMITING Last Admin: 01/18/18 14:48 Dose: 4 mg Oxycodone HCl (Roxycodone Tab*) 10 mg PO Q2H PRN PRN Reason: PAIN Last Admin: 01/18/18 09:05 Dose: 10 mg Prochlorperazine Edisylate (Compazine Inj*) 10 mg IV Q6H PRN PRN Reason: NAUSEA/VOMITING Last Admin: 01/13/18 20:11 Dose: 10 mg Vital Signs - 8 hr 01/18/18 01/18/18 01/18/18 08:00 09:05 09:23 Temperature Pulse Rate Respiratory 20 18 16 Rate Blood Pressure (mmHg) O2 Sat by Pulse 97 Oximetry 01/18/18 01/18/18 01/18/18 11:10 11:28 14:42 Temperature 97.7 F Pulse Rate 68 Respiratory 20 18 16 Rate Blood Pressure 109/74 (mmHg) O2 Sat by Pulse 98 Oximetry Oxygen Devices in Use Now: None Appearance: NAD Eyes: No Scleral Icterus, PERRLA Ears/Nose/Mouth/Throat: NL Teeth, Lips, Gums, Mucous Membranes Moist Respiratory: Symmetrical Chest Expansion and Respiratory Effort, Clear to Auscultation Cardiovascular: NL Sounds; No Murmurs; No JVD, RRR Abdominal: - - s/p epigastric scar, distended, nontender to palpation. Extremities: No Edema Skin: No Rash or Ulcers Neurological: Alert and Oriented x 3, NL Sensation Nutrition: Taking PO's Result Diagrams: 01/18/18 06:52 01/17/18 03:49 Additional Lab and Data: Laboratory Results - last 24 hr 01/17/18 01/18/18 01/18/18 16:45 06:52 08:08 WBC 0.9 L RBC 3.97 L Hgb 11.3 L Hct 33 L MCV 84 MCH 28 MCHC 34 RDW 17 H Plt Count 55 L MPV 7.3 L Neut % (Auto) 27.7 L Lymph % (Auto) 44.4 [place] % (Auto) 26.1 H Eos % (Auto) 0.6 Baso % (Auto) 1.2 Absolute Neuts (auto) 0.2 L* Absolute Lymphs (auto) 0.4 L Absolute Monos (auto) 0.2 Absolute Eos (auto) 0 Absolute Basos (auto) 0 Absolute Nucleated RBC 0 Nucleated RBC % 0.4 POC Glucose (mg/dL) 140 H 64 L 01/18/18 11:57 WBC RBC Hgb Hct MCV MCH MCHC RDW Plt Count MPV Neut % (Auto) Lymph % (Auto) [place] % (Auto) Eos % (Auto) Baso % (Auto) Absolute Neuts (auto) Absolute Lymphs (auto) Absolute Monos (auto) Absolute Eos (auto) Absolute Basos (auto) Absolute Nucleated RBC Nucleated RBC % POC Glucose (mg/dL) 73 Microbiology and Other Data: Microbiology 01/13/18 23:12 Blood Venous Aerobic Blood Culture - Preliminary No Growth Day 4 01/13/18 23:12 Blood Venous Anaerobic Blood Culture - Preliminary No Growth Day 4 01/13/18 20:30 Blood Venous Aerobic Blood Culture - Preliminary No Growth Day 4 01/13/18 20:30 Blood Venous Anaerobic Blood Culture - Preliminary No Growth Day 4 01/14/18 14:32 Stool Stool Culture - Final 01/14/18 14:32 Stool Stool Gross Appearance - Final 01/14/18 14:32 Stool Shiga Toxin I & II - Final Negative Shiga Toxin 1 & 2 01/13/18 20:29 Urine Urine Culture - Final 01/14/18 14:32 Stool Stool Gross Appearance - Final 01/14/18 14:32 Stool C. difficile DNA Amplification - Final 027 Presumptive NEGATIVE Toxigenic C.diff NEGATIVE 01/14/18 14:32 Stool Stool Gross Appearance - Final 01/14/18 14:32 Stool Stool Lactoferrin - Final 01/14/18 14:32 Stool Stool Occult Blood (LAURA) - Final Assess/Plan/Problems-Billing Assessment: 62 yr old with PMHx of pancreatic cancer (dx December 2015 s/p neoadjuvant xeloda/RT and now s/p 2nd cycle of mFOLFIRONX who was admitted with abdmoninal pain severe neutropenia and initial fever. Thrombocytopenic. Progression of peritoneal implants/carcinomatosis and e/o portal vein thrombus on imaging. Cefepime. - Patient Problems (1) Neutropenic fever Current Visit: Yes Status: Acute Code(s): D70.9 - NEUTROPENIA, UNSPECIFIED; R50.81 - FEVER PRESENTING WITH CONDITIONS CLASSIFIED ELSEWHERE SNOMED Code(s) : 750793194 Comment: ANC 200 appreciate Heme/onc recs continue cefepime until ANC >1000 or >800 and clearly rising. No stimulating factors indicated presently. Has remained afebrile and cultures negative. likely 2/2 chemo with perhaps underlyiong MDS (2) Pancreatic cancer Current Visit: No Status: Acute Comment: Discused with Dr. Mccarthy on [facility] , follows in [place] office. recommend no a/c for portal vein thrombus given thrombocytopenia. appreciate Dr. Marie recs. alkphos and ALT slightly higher. given progression of peritoneal implants/carcinomatosis, prognosis is guarded but palliative chemo with dose reduction or switch to gemcitabine/abraxane would be reasonable per heme/onc. Continue Creon (3) Abdominal pain Current Visit: No Status: Acute Code(s): R10.9 - UNSPECIFIED ABDOMINAL PAIN SNOMED Code(s): 45270016 Comment: e/o portal vein thrombosis. Pt with ascites and peritoneal implants. not tense on exam. no w/o biliary obstruction. c/w opana and breakthrough pain meds (for his chronic back pain) (4) DNR (do not resuscitate) Current Visit: Yes Status: Acute (5) Thrombocytopenia Current Visit: Yes Status: Acute Code(s): D69.6 - THROMBOCYTOPENIA, UNSPECIFIED SNOMED Code(s): 685070956 Comment: likely due to chemo and perhaps underlying MDS. Continue to monitor. will stop his aspirin. (6) Diabetes Current Visit: No Status: Acute Code(s): E11.9 - TYPE 2 DIABETES MELLITUS WITHOUT COMPLICATIONS SNOMED Code(s): 73780283 Comment: labile. now hypoglycemic to 64 in AM. likely reduced intake given associated abdominal pain. Will decrease from Lantus 32U BID to 25U BID. home is 30/35U levemir with 05/23/10 humalog qa A1C 8.5 SSI hold po agents (metformin), intially with lactic acidosis (resolved). (7) HTN (hypertension) Current Visit: No Status: Acute Code(s): I10 - ESSENTIAL (PRIMARY) HYPERTENSION SNOMED Code(s): 16784787 Comment: controlled on metoprolol (8) CAD (coronary artery disease) Current Visit: No Status: Chronic Priority: Medium Code(s): I25.10 - ATHSCL HEART DISEASE OF [place] CORONARY ARTERY W/O ANG PCTRS SNOMED Code(s): 56303264 Comment: Asymptomatic, cont BB. statin aspirin Status and Disposition: inpatient for severe neutropenia, initially with fever.
[2018-01-18] MEDS: Baclofen TAB* 10 MG PO PRN (17:27)
[2018-01-18] MEDS ORDERED: Insulin GLARGINE(*) 1 UNITS UNIT SUBCUT SCH ×2 (21:00)
[2018-01-19] MEDS: Cefepime 1 GM in Dextrose(*) 1 GM/50 ML BAG IV SCH ×3 (00:28→22:23)
[2018-01-19] MEDS: oxyCODONE TAB* 5 MG TAB PO PRN ×6 (01:22→23:07)
[2018-01-19] MEDS: Morphine VIAL* 4 MG/ML VIAL (1 ml vial) IV PRN ×8 (02:14→22:23)
[2018-01-19] MEDS: Ondansetron ODT TAB* 4 MG SL PRN ×3 (04:50→19:56)
[2018-01-19 06:28] LABS: Hematocrit 32 % (42-52); Hemoglobin 11.1 g/dl (14.0-18.0); Mean Corpuscular HGB Conc 34 g/dl (31-36); Mean Corpuscular Hemoglobin 29 pg (27-31); Mean Corpuscular Volume 84 fL (80-94); Mean Platelet Volume 7.1 um3 (7.4-10.4); Platelet Count 52 10^3/ul (150-450); Red Blood Count 3.88 10^6/ul (4.0-5.4); Red Cell Distribution Width 17 % (10.5-15); White Blood Count 1.1 10^3/ul (3.5-10.8)
[2018-01-19 06:30] LABS: ABS Basophils 0 10^3/ul (0-0.2); ABS Eosinophils 0 10^3/ul (0-0.6); ABS Lymphocytes 0.5 10^3/ul (1.0-4.8); ABS Monocytes 0.3 10^3/ul (0-0.8); ABS Neutrophils 0.3 10^3/ul (1.5-7.7); ABS Nucleated RBC 0 10^3/ul; Eosinophil % 0.7 % (0-6); Lymphocyte % 43.4 % (25-47); Nucleated Red Blood Cells % 0.1
[2018-01-19] MEDS: Insulin LISPRO* 1 UNITS UNIT SUBCUT SCH ×3 (08:02→17:18)
[2018-01-19] MEDS: CREON PO SCH ×3 (08:52→17:19)
[2018-01-19] MEDS: Omeprazole CAP* 20 MG PO SCH (08:52)
[2018-01-19] MEDS: Atorvastatin* 20 MG TAB PO SCH (08:52)
[2018-01-19] MEDS: Metoprolol Tartrate TAB* 25 MG PO SCH ×2 (08:53→19:56)
[2018-01-19] MEDS: LIDO MOUTHWASH SWISH SPIT SCH ×4 (08:55→19:56)
[2018-01-19] MEDS: NYST SWISH SPIT SCH ×4 (08:55→19:56)
[2018-01-19] MEDS: MAAL SWISH SPIT SCH ×4 (08:55→19:56)
[2018-01-19] MEDS: MAGIC M W2 BEN SWISH SPIT SCH ×4 (08:55→19:56)
[2018-01-19] MEDS: Dextrose 50% Syringe 50 ML* 25 GM/50 ML SYRINGE IV PUSH PRN (09:49)
--- NOTE | 2018-01-19 13:19 | PN ---
Subjective Date of Service: 01/19/18 Interval History: Afebrile, ANC improved to 300. Hypoglycemic to low 53. improved to 70s with food. Asymptomatic mouth ulcerations less painful. abdominal pain, well controlled with oxycodone 10mg q2h prn. Objective Active Medications: Atorvastatin Calcium (Lipitor*) 20 mg PO DAILY [facility] Last Admin: 01/19/18 08:52 Dose: 20 mg Baclofen (Lioresal Tab*) 10 mg PO TID PRN PRN Reason: hiccups Last Admin: 01/18/18 17:27 Dose: 10 mg Dextrose (D50w Syringe 50 Ml*) 12.5 gm IV PUSH .FOR FS < 60 - SS PRN PRN Reason: FS < 60 Last Admin: 01/19/18 09:49 Dose: 12.5 gm Heparin Sodium (Porcine) (Heparin Flush Port (Ivad)) 5 ml IV FLUSH DAILY [facility] PRN Reason: Protocol Last Admin: 01/19/18 08:56 Dose: 5 ml Cefepime HCl (Maxipime 1 Gm In Dextrose Duplex (*)) 1 gm in 50 mls @ 100 mls/ hr IV Q12H [facility] Last Admin: 01/19/18 11:12 Dose: 100 mls/hr Insulin Glargine (Lantus(*)) 22 units SUBCUT Q12H [facility] Insulin Human Lispro (Humalog*) 0 units SUBCUT [facility] PRN Reason: Protocol Last Admin: 01/19/18 12:21 Dose: Not Given Metoprolol Tartrate (Lopressor Tab*) 37.5 mg PO BID [facility] Last Admin: 01/19/18 08:53 Dose: 37.5 mg Morphine Sulfate (Morphine Vial*) 2 mg IV Q2H PRN PRN Reason: PAIN - MILD Last Admin: 01/19/18 12:56 Dose: 2 mg Multi-Ingredient Mouthwash/Gargle (Magic M W2 Deejay/Maal/Nyst/Lido*) 5 ml SWISH SPIT QID [facility] Last Admin: 01/19/18 12:56 Dose: 5 ml Creon (12k-38k-60k) 2 cap PO TID AC [facility] Last Admin: 01/19/18 12:26 Dose: 2 cap Omeprazole (Prilosec Cap*) 20 mg PO DAILY [facility] Last Admin: 01/19/18 08:52 Dose: 20 mg Ondansetron HCl (Zofran 40 Mg Vial*) 4 mg IV Q4H PRN PRN Reason: NAUSEA/VOMITING Last Admin: 01/16/18 22:37 Dose: 4 mg Ondansetron HCl (Zofran Odt Tab*) 4 mg SL Q6H PRN PRN Reason: NAUSEA/VOMITING Last Admin: 01/19/18 04:50 Dose: 4 mg Oxycodone HCl (Roxycodone Tab*) 10 mg PO Q2H PRN PRN Reason: PAIN Last Admin: 01/19/18 11:12 Dose: 10 mg Prochlorperazine Edisylate (Compazine Inj*) 10 mg IV Q6H PRN PRN Reason: NAUSEA/VOMITING Last Admin: 01/13/18 20:11 Dose: 10 mg Vital Signs - 8 hr 01/19/18 01/19/18 01/19/18 06:20 06:21 07:13 Temperature 98.3 F Pulse Rate 73 Respiratory 18 18 16 Rate Blood Pressure 150/88 (mmHg) O2 Sat by Pulse 97 Oximetry 01/19/18 01/19/18 01/19/18 07:22 07:37 08:53 Temperature Pulse Rate Respiratory 16 18 18 Rate Blood Pressure (mmHg) O2 Sat by Pulse Oximetry 01/19/18 01/19/18 01/19/18 08:55 11:12 11:21 Temperature 98.0 F Pulse Rate 62 Respiratory 16 18 16 Rate Blood Pressure 119/77 (mmHg) O2 Sat by Pulse 100 Oximetry 01/19/18 12:56 Temperature Pulse Rate Respiratory 16 Rate Blood Pressure (mmHg) O2 Sat by Pulse Oximetry Oxygen Devices in Use Now: None Appearance: NAD. Eyes: No Scleral Icterus, PERRLA Ears/Nose/Mouth/Throat: NL Teeth, Lips, Gums Neck: NL Appearance and Movements; NL JVP, Trachea Midline Respiratory: Symmetrical Chest Expansion and Respiratory Effort, Clear to Auscultation Cardiovascular: NL Sounds; No Murmurs; No JVD Abdominal: NL Sounds; No Tenderness; No Distention, No Hepatosplenomegaly, - - abdominal distention. Extremities: No Edema Neurological: Alert and Oriented x 3, NL Sensation Result Diagrams: 01/19/18 06:15 01/17/18 03:49 Additional Lab and Data: Laboratory Results - last 24 hr 01/18/18 01/19/18 01/19/18 17:02 06:15 07:57 WBC 1.1 L RBC 3.88 L Hgb 11.1 L Hct 32 L MCV 84 MCH 29 MCHC 34 RDW 17 H Plt Count 52 L MPV 7.1 L Neut % (Auto) 25.7 L Lymph % (Auto) 43.4 [place] % (Auto) 29.6 H Eos % (Auto) 0.7 Baso % (Auto) 0.6 Absolute Neuts (auto) 0.3 L* Absolute Lymphs (auto) 0.5 L Absolute Monos (auto) 0.3 Absolute Eos (auto) 0 Absolute Basos (auto) 0 Absolute Nucleated RBC 0 Nucleated RBC % 0.1 POC Glucose (mg/dL) 73 53 L 01/19/18 01/19/18 01/19/18 08:26 09:01 09:44 WBC RBC Hgb Hct MCV MCH MCHC RDW Plt Count MPV Neut % (Auto) Lymph % (Auto) [place] % (Auto) Eos % (Auto) Baso % (Auto) Absolute Neuts (auto) Absolute Lymphs (auto) Absolute Monos (auto) Absolute Eos (auto) Absolute Basos (auto) Absolute Nucleated RBC Nucleated RBC % POC Glucose (mg/dL) 50 L 58 L 67 L 01/19/18 11:14 WBC RBC Hgb Hct MCV MCH MCHC RDW Plt Count MPV Neut % (Auto) Lymph % (Auto) [place] % (Auto) Eos % (Auto) Baso % (Auto) Absolute Neuts (auto) Absolute Lymphs (auto) Absolute Monos (auto) Absolute Eos (auto) Absolute Basos (auto) Absolute Nucleated RBC Nucleated RBC % POC Glucose (mg/dL) 77 Microbiology and Other Data: Microbiology 01/13/18 23:12 Blood Venous Aerobic Blood Culture - Final No Growth Day 5 01/13/18 23:12 Blood Venous Anaerobic Blood Culture - Final No Growth Day 5 01/13/18 20:30 Blood Venous Aerobic Blood Culture - Final No Growth Day 5 01/13/18 20:30 Blood Venous Anaerobic Blood Culture - Final No Growth Day 5 01/14/18 14:32 Stool Stool Culture - Final 01/14/18 14:32 Stool Stool Gross Appearance - Final 01/14/18 14:32 Stool Shiga Toxin I & II - Final Negative Shiga Toxin 1 & 2 01/13/18 20:29 Urine Urine Culture - Final 01/14/18 14:32 Stool Stool Gross Appearance - Final 01/14/18 14:32 Stool C. difficile DNA Amplification - Final 027 Presumptive NEGATIVE Toxigenic C.diff NEGATIVE 01/14/18 14:32 Stool Stool Gross Appearance - Final 01/14/18 14:32 Stool Stool Lactoferrin - Final 01/14/18 14:32 Stool Stool Occult Blood (LAURA) - Final Assess/Plan/Problems-Billing Assessment: 62 yr old with PMHx of pancreatic cancer (dx December 2015 s/p neoadjuvant xeloda/RT and now s/p 2nd cycle of mFOLFIRONX who was admitted with abdmoninal pain severe neutropenia and initial fever. Thrombocytopenic. Progression of peritoneal implants/carcinomatosis and e/o portal vein thrombus on imaging. Cefepime. - Patient Problems (1) Neutropenic fever Current Visit: Yes Status: Acute Code(s): D70.9 - NEUTROPENIA, UNSPECIFIED; R50.81 - FEVER PRESENTING WITH CONDITIONS CLASSIFIED ELSEWHERE SNOMED Code(s) : 128003558 Comment: ANC improved to 300 from 200 appreciate Heme/onc recs continue cefepime until ANC >1000 or >800 and clearly rising. No stimulating factors indicated presently. Has remained afebrile and cultures negative. likely 2/2 chemo with perhaps underlying MDS (2) Pancreatic cancer Current Visit: No Status: Acute Comment: Discused with Dr. Mccarthy on [facility] , follows in [place] office. recommend no a/c for portal vein thrombus given thrombocytopenia. appreciate Dr. Marie recs. alkphos and ALT slightly higher. given progression of peritoneal implants/carcinomatosis, overall prognosis is guarded but palliative chemo with dose reduction or switch to gemcitabine/ abraxane would be reasonable per heme/onc (Dr. Marie). Continue Creon (3) Abdominal pain Current Visit: No Status: Acute Code(s): R10.9 - UNSPECIFIED ABDOMINAL PAIN SNOMED Code(s): 65669987 Comment: e/o portal vein thrombosis. Pt with ascites and peritoneal implants. not tense on exam. no w/o biliary obstruction. c/w oxycodone 10mg q2h prn and breakthrough pain meds (for his chronic back pain ) (4) DNR (do not resuscitate) Current Visit: Yes Status: Acute (5) Thrombocytopenia Current Visit: Yes Status: Acute Code(s): D69.6 - THROMBOCYTOPENIA, UNSPECIFIED SNOMED Code(s): 367294355 Comment: likely due to chemo and perhaps underlying MDS. Continue to monitor. will stop his aspirin. (6) Diabetes Current Visit: No Status: Acute Code(s): E11.9 - TYPE 2 DIABETES MELLITUS WITHOUT COMPLICATIONS SNOMED Code(s): 16921888 Comment: very labile as high as 400s off insulin when initially presented hypoglycmic. this AM hypoglycemic to 50. likely reduced carbohydrate intake given associated abdominal pain and mouth ulcers (Attests can't eat toast for instance). stop lantus for now. got 22 U last night. home is 30/35U levemir with 10 humalog qac A1C 8.5 SSI hold po agents (metformin), intially with lactic acidosis (resolved). (7) HTN (hypertension) Current Visit: No Status: Acute Code(s): I10 - ESSENTIAL (PRIMARY) HYPERTENSION SNOMED Code(s): 92424989 Comment: controlled on metoprolol (8) CAD (coronary artery disease) Current Visit: No Status: Chronic Priority: Medium Code(s): I25.10 - ATHSCL HEART DISEASE OF [place] CORONARY ARTERY W/O ANG PCTRS SNOMED Code(s): 80813967 Comment: Asymptomatic, cont BB. statin aspirin Status and Disposition: inpatient for severe neutropenia, initially with fever. Requires ANC at least 800 before discharge per heme/onc.
[2018-01-19] MEDS ORDERED: Insulin GLARGINE(*) 1 UNITS UNIT SUBCUT SCH (21:00)
[2018-01-20] MEDS: Morphine VIAL* 4 MG/ML VIAL (1 ml vial) IV PRN ×10 (00:19→22:33)
[2018-01-20] MEDS: Baclofen TAB* 10 MG PO PRN ×2 (00:23→20:18)
[2018-01-20] MEDS: Ondansetron ODT TAB* 4 MG SL PRN (02:23)
[2018-01-20 06:14] LABS: ABS Basophils 0 10^3/ul (0-0.2); ABS Eosinophils 0 10^3/ul (0-0.6); ABS Lymphocytes 0.5 10^3/ul (1.0-4.8); ABS Monocytes 0.4 10^3/ul (0-0.8); ABS Neutrophils 0.5 10^3/ul (1.5-7.7); ABS Nucleated RBC 0 10^3/ul; Eosinophil % 0.5 % (0-6); Hematocrit 37 % (42-52); Hemoglobin 12.4 g/dl (14.0-18.0); Lymphocyte % 36.4 % (25-47); Mean Corpuscular HGB Conc 34 g/dl (31-36); Mean Corpuscular Hemoglobin 28 pg (27-31); Mean Corpuscular Volume 84 fL (80-94); Mean Platelet Volume 7.4 um3 (7.4-10.4); Nucleated Red Blood Cells % 0.3; Platelet Count 69 10^3/ul (150-450); Red Blood Count 4.39 10^6/ul (4.0-5.4); Red Cell Distribution Width 17 % (10.5-15); White Blood Count 1.4 10^3/ul (3.5-10.8)
[2018-01-20 06:22] LABS: EGFR Non-African American 84.1 (>60)
[2018-01-20] MEDS: Omeprazole CAP* 20 MG PO SCH (07:32)
[2018-01-20] MEDS: CREON PO SCH ×3 (07:32→16:03)
[2018-01-20] MEDS: Atorvastatin* 20 MG TAB PO SCH (07:32)
[2018-01-20] MEDS: Insulin LISPRO* 1 UNITS UNIT SUBCUT SCH ×3 (07:32→16:07)
[2018-01-20] MEDS: Metoprolol Tartrate TAB* 25 MG PO SCH ×2 (07:32→20:17)
[2018-01-20] MEDS: NYST SWISH SPIT SCH ×4 (07:33→20:14)
[2018-01-20] MEDS: MAAL SWISH SPIT SCH ×4 (07:33→20:14)
[2018-01-20] MEDS: MAGIC M W2 BEN SWISH SPIT SCH ×4 (07:33→20:14)
[2018-01-20] MEDS: LIDO MOUTHWASH SWISH SPIT SCH ×4 (07:33→20:14)
[2018-01-20] MEDS: Dextrose 50% Syringe 50 ML* 25 GM/50 ML SYRINGE IV PUSH PRN (07:46)
--- NOTE | 2018-01-20 09:44 | PN ---
Subjective Date of Service: 01/20/18 Interval History: Pt states he feels "lousy" but much better than on admission. He is mainly concerned with his weight gain, abdominal swelling, and pedal edema. Objective Active Medications: Atorvastatin Calcium (Lipitor*) 20 mg PO DAILY [facility] Last Admin: 01/20/18 07:32 Dose: 20 mg Baclofen (Lioresal Tab*) 10 mg PO TID PRN PRN Reason: hiccups Last Admin: 01/20/18 00:23 Dose: 10 mg Dextrose (D50w Syringe 50 Ml*) 12.5 gm IV PUSH .FOR FS < 60 - SS PRN PRN Reason: FS < 60 Last Admin: 01/20/18 07:46 Dose: 12.5 gm Heparin Sodium (Porcine) (Heparin Flush Port (Ivad)) 5 ml IV FLUSH DAILY [facility] PRN Reason: Protocol Last Admin: 01/19/18 08:56 Dose: 5 ml Cefepime HCl (Maxipime 1 Gm In Dextrose Duplex (*)) 1 gm in 50 mls @ 100 mls/ hr IV Q12H [facility] Last Admin: 01/19/18 22:23 Dose: 100 mls/hr Insulin Human Lispro (Humalog*) 0 units SUBCUT [facility] PRN Reason: Protocol Last Admin: 01/20/18 07:32 Dose: Not Given Metoprolol Tartrate (Lopressor Tab*) 37.5 mg PO BID [facility] Last Admin: 01/20/18 07:32 Dose: 37.5 mg Morphine Sulfate (Morphine Vial*) 2 mg IV Q2H PRN PRN Reason: PAIN - MILD Last Admin: 01/20/18 07:33 Dose: 2 mg Multi-Ingredient Mouthwash/Gargle (Magic M W2 Deejay/Maal/Nyst/Lido*) 5 ml SWISH SPIT QID [facility] Last Admin: 01/20/18 07:33 Dose: 5 ml Creon (12k-38k-60k) 2 cap PO TID [facility] Last Admin: 01/20/18 07:32 Dose: 2 cap Omeprazole (Prilosec Cap*) 20 mg PO DAILY [facility] Last Admin: 01/20/18 07:32 Dose: 20 mg Ondansetron HCl (Zofran 40 Mg Vial*) 4 mg IV Q4H PRN PRN Reason: NAUSEA/VOMITING Last Admin: 01/16/18 22:37 Dose: 4 mg Ondansetron HCl (Zofran Odt Tab*) 4 mg SL Q6H PRN PRN Reason: NAUSEA/VOMITING Last Admin: 01/20/18 02:23 Dose: 4 mg Oxycodone HCl (Roxycodone Tab*) 10 mg PO Q2H PRN PRN Reason: PAIN Last Admin: 01/19/18 23:07 Dose: 10 mg Prochlorperazine Edisylate (Compazine Inj*) 10 mg IV Q6H PRN PRN Reason: NAUSEA/VOMITING Last Admin: 01/13/18 20:11 Dose: 10 mg Vital Signs - 8 hr 01/20/18 01/20/18 01/20/18 02:23 03:13 03:40 Temperature 97.9 F Pulse Rate 80 Respiratory 18 16 18 Rate Blood Pressure 116/70 (mmHg) O2 Sat by Pulse 100 Oximetry 01/20/18 01/20/18 01/20/18 05:30 07:22 07:33 Temperature 98.2 F Pulse Rate 73 Respiratory 18 16 18 Rate Blood Pressure 129/79 (mmHg) O2 Sat by Pulse 98 Oximetry 01/20/18 07:42 Temperature Pulse Rate Respiratory 18 Rate Blood Pressure (mmHg) O2 Sat by Pulse 98 Oximetry Oxygen Devices in Use Now: None Appearance: Alert, sitting on the edge of his bed. In good spirits. Looks comfortable. Eyes: No Scleral Icterus Respiratory: Symmetrical Chest Expansion and Respiratory Effort, Clear to Auscultation, Clear to Percussion Cardiovascular: NL Sounds; No Murmurs; No JVD, RRR, No Edema, - Abdominal: - - massive increased girth. Soft, non-tender. Extremities: No Clubbing, Cyanosis, - - 1-2+ edema Skin: No Rash or Ulcers, No Nodules or Sclerosis Neurological: Alert and Oriented x 3, NL Sensation Result Diagrams: 01/20/18 05:55 01/20/18 05:52 Additional Lab and Data: Laboratory Results - last 24 hr 01/18/18 01/19/18 01/19/18 17:02 06:15 07:57 WBC 1.1 L RBC 3.88 L Hgb 11.1 L Hct 32 L MCV 84 MCH 29 MCHC 34 RDW 17 H Plt Count 52 L MPV 7.1 L Neut % (Auto) 25.7 L Lymph % (Auto) 43.4 [place] % (Auto) 29.6 H Eos % (Auto) 0.7 Baso % (Auto) 0.6 Absolute Neuts (auto) 0.3 L* Absolute Lymphs (auto) 0.5 L Absolute Monos (auto) 0.3 Absolute Eos (auto) 0 Absolute Basos (auto) 0 Absolute Nucleated RBC 0 Nucleated RBC % 0.1 POC Glucose (mg/dL) 73 53 L 01/19/18 01/19/18 01/19/18 08:26 09:01 09:44 WBC RBC Hgb Hct MCV MCH MCHC RDW Plt Count MPV Neut % (Auto) Lymph % (Auto) [place] % (Auto) Eos % (Auto) Baso % (Auto) Absolute Neuts (auto) Absolute Lymphs (auto) Absolute Monos (auto) Absolute Eos (auto) Absolute Basos (auto) Absolute Nucleated RBC Nucleated RBC % POC Glucose (mg/dL) 50 L 58 L 67 L 01/19/18 11:14 WBC RBC Hgb Hct MCV MCH MCHC RDW Plt Count MPV Neut % (Auto) Lymph % (Auto) [place] % (Auto) Eos % (Auto) Baso % (Auto) Absolute Neuts (auto) Absolute Lymphs (auto) Absolute Monos (auto) Absolute Eos (auto) Absolute Basos (auto) Absolute Nucleated RBC Nucleated RBC % POC Glucose (mg/dL) 77 Microbiology and Other Data: Microbiology 01/13/18 23:12 Blood Venous Aerobic Blood Culture - Final No Growth Day 5 01/13/18 23:12 Blood Venous Anaerobic Blood Culture - Final No Growth Day 5 01/13/18 20:30 Blood Venous Aerobic Blood Culture - Final No Growth Day 5 01/13/18 20:30 Blood Venous Anaerobic Blood Culture - Final No Growth Day 5 01/14/18 14:32 Stool Stool Culture - Final 01/14/18 14:32 Stool Stool Gross Appearance - Final 01/14/18 14:32 Stool Shiga Toxin I & II - Final Negative Shiga Toxin 1 & 2 01/13/18 20:29 Urine Urine Culture - Final 01/14/18 14:32 Stool Stool Gross Appearance - Final 01/14/18 14:32 Stool C. difficile DNA Amplification - Final 027 Presumptive NEGATIVE Toxigenic C.diff NEGATIVE 01/14/18 14:32 Stool Stool Gross Appearance - Final 01/14/18 14:32 Stool Stool Lactoferrin - Final 01/14/18 14:32 Stool Stool Occult Blood (LAURA) - Final Assess/Plan/Problems-Billing Assessment: 62 yr old with PMHx of pancreatic cancer (dx December 2015 s/p neoadjuvant xeloda/RT and now s/p 2nd cycle of mFOLFIRONX who was admitted with abdmoninal pain severe neutropenia and initial fever. Thrombocytopenic. Progression of peritoneal implants/carcinomatosis and e/o portal vein thrombus on imaging. Cefepime. - Patient Problems (1) Neutropenic fever Current Visit: Yes Status: Acute Code(s): D70.9 - NEUTROPENIA, UNSPECIFIED; R50.81 - FEVER PRESENTING WITH CONDITIONS CLASSIFIED ELSEWHERE SNOMED Code(s) : 574198085 Comment: ANC improved to 500 from 300 01/20. continue cefepime until ANC >1000 or >800 and clearly rising. No stimulating factors indicated presently. Has remained afebrile 7 days and cultures negative. likely 2/2 chemo with perhaps underlying MDS. (2) Pancreatic cancer Current Visit: No Status: Acute Comment: Discused with Dr. Fabio rome [facility] , follows in [place] office. Discussed possible AC for portal vein thrombosis with Dr. Hinojosa, possible diuretics. Low sodiium diet, restrict fluids to 1600 ml per day. Continue Creon Start enoxaparin 01/20 for portal vein thrombosis. Start furosemide and spironolactone 01/20 for ascites. 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 creat wnl 01/20. (4) Common bile duct (CBD) obstruction Current Visit: No Status: Acute Priority: High Code(s): K83.1 - OBSTRUCTION OF BILE DUCT SNOMED Code(s): 059446821 Comment: Metallic stent in place. (5) CAD (coronary artery disease) Current Visit: No Status: Chronic Priority: Medium Code(s): I25.10 - ATHSCL HEART DISEASE OF [place] CORONARY ARTERY W/O ANG PCTRS SNOMED Code(s): 77141791 Comment: Asymptomatic, cont BB, statin Resume aspirin 01/20. Status and Disposition: inpatient for severe neutropenia, initially with fever. Requires ANC at least 800 before discharge per heme/onc.
[2018-01-20] MEDS: Cefepime 1 GM in Dextrose(*) 1 GM/50 ML BAG IV SCH ×2 (11:04→22:35)
[2018-01-20] MEDS: Aspirin 81 mg CHEW TAB* 81 MG TAB.CHEW PO SCH (11:04)
--- NOTE | 2018-01-20 11:41 | PN ---
Progress Note - Progress Note Date of Service: 01/20/18 SOAP: Subjective: []62 yo M w metastatic pancreatic cancer presenting with neutropenic fever sp cycle 2 of mFOLFIRINOX. Addmision NF. CT A//P, which showed a port vein thrombosis and peritoneal implants. Better today. Feels bloated and has gained weight. Eating well and no more fevers. He is not in pain. Normal BM. Wants to have weight down. Aspirin (Aspirin 81 Mg Chew Tab*) 81 mg PO DAILY [facility] Last Admin: 01/20/18 11:04 Dose: 81 mg Atorvastatin Calcium (Lipitor*) 20 mg PO DAILY [facility] Last Admin: 01/20/18 07:32 Dose: 20 mg Baclofen (Lioresal Tab*) 10 mg PO TID PRN PRN Reason: hiccups Last Admin: 01/20/18 00:23 Dose: 10 mg Dextrose (D50w Syringe 50 Ml*) 12.5 gm IV PUSH .FOR FS < 60 - SS PRN PRN Reason: FS < 60 Last Admin: 01/20/18 07:46 Dose: 12.5 gm Heparin Sodium (Porcine) (Heparin Flush Port (Ivad)) 5 ml IV FLUSH DAILY [facility] PRN Reason: Protocol Last Admin: 01/19/18 08:56 Dose: 5 ml Cefepime HCl (Maxipime 1 Gm In Dextrose Duplex (*)) 1 gm in 50 mls @ 100 mls/ hr IV Q12H [facility] Last Admin: 01/20/18 11:04 Dose: 100 mls/hr Insulin Human Lispro (Humalog*) 0 units SUBCUT [facility] PRN Reason: Protocol Last Admin: 01/20/18 07:32 Dose: Not Given Metoprolol Tartrate (Lopressor Tab*) 37.5 mg PO BID [facility] Last Admin: 01/20/18 07:32 Dose: 37.5 mg Morphine Sulfate (Morphine Vial*) 2 mg IV Q2H PRN PRN Reason: PAIN - MILD Last Admin: 01/20/18 11:04 Dose: 2 mg Multi-Ingredient Mouthwash/Gargle (Magic M W2 Deejay/Maal/Nyst/Lido*) 5 ml SWISH SPIT QID [facility] Last Admin: 01/20/18 07:33 Dose: 5 ml Creon (12k-38k-60k) 2 cap PO TID [facility] Last Admin: 01/20/18 07:32 Dose: 2 cap Omeprazole (Prilosec Cap*) 20 mg PO DAILY [facility] Last Admin: 01/20/18 07:32 Dose: 20 mg Ondansetron HCl (Zofran 40 Mg Vial*) 4 mg IV Q4H PRN PRN Reason: NAUSEA/VOMITING Last Admin: 01/16/18 22:37 Dose: 4 mg Ondansetron HCl (Zofran Odt Tab*) 4 mg SL Q6H PRN PRN Reason: NAUSEA/VOMITING Last Admin: 01/20/18 02:23 Dose: 4 mg Oxycodone HCl (Roxycodone Tab*) 10 mg PO Q2H PRN PRN Reason: PAIN Last Admin: 01/19/18 23:07 Dose: 10 mg Prochlorperazine Edisylate (Compazine Inj*) 10 mg IV Q6H PRN PRN Reason: NAUSEA/VOMITING Last Admin: 01/13/18 20:11 Dose: 10 mg Objective: [] Vital Signs Temp Pulse Resp BP Pulse Ox 98.2 F 73 16 129/79 98 01/20/18 07:22 01/20/18 07:22 01/20/18 11:04 01/20/18 07:22 01/20/18 07:42 HEENT - conjunctiva pale. no oral lesions, no through. no JVD CTA RRR S1S2 Fluid wave in abd, ND, good BS. Mild epigastric tenderness. Laboratory Results - last 24 hr 01/19/18 01/19/18 01/20/18 17:15 20:05 05:52 WBC RBC Hgb Hct MCV MCH MCHC RDW Plt Count MPV Neut % (Auto) Lymph % (Auto) [place] % (Auto) Eos % (Auto) Baso % (Auto) Absolute Neuts (auto) Absolute Lymphs (auto) Absolute Monos (auto) Absolute Eos (auto) Absolute Basos (auto) Absolute Nucleated RBC Nucleated RBC % Sodium 136 L Potassium 3.5 Chloride 104 Carbon Dioxide 24 Anion Gap 8 BUN 21 Creatinine 0.91 Est GFR ( Amer) 108.2 Est GFR (Non-Af Amer) 84.1 BUN/Creatinine Ratio 23.1 H Glucose 62 L POC Glucose (mg/dL) 93 98 Calcium 8.2 L 01/20/18 01/20/18 01/20/18 05:55 07:29 09:25 WBC 1.4 L RBC 4.39 Hgb 12.4 L Hct 37 L MCV 84 MCH 28 MCHC 34 RDW 17 H Plt Count 69 L MPV 7.4 Neut % (Auto) 34.8 L Lymph % (Auto) 36.4 [place] % (Auto) 28.0 H Eos % (Auto) 0.5 Baso % (Auto) 0.3 Absolute Neuts (auto) 0.5 L* Absolute Lymphs (auto) 0.5 L Absolute Monos (auto) 0.4 Absolute Eos (auto) 0 Absolute Basos (auto) 0 Absolute Nucleated RBC 0 Nucleated RBC % 0.3 Sodium Potassium Chloride Carbon Dioxide Anion Gap BUN Creatinine Est GFR ( Amer) Est GFR (Non-Af Amer) BUN/Creatinine Ratio Glucose POC Glucose (mg/dL) 61 L 82 Calcium Assessment: []62 year old admitted NF after FOLFIRINOX with slow recovery of blood counts. Follow up several issues. Plan: []1. NF. Plan discharge once ANC > 1000 2, Pancreatic cancer. Will re-start chemotherapy in [place], will need does reduction or alternative regimen. 3. Acute portal vein thrombosis. Ok to start Lovenox 100 mg sq bid. Discussed with patient and will need to take shots at home. Can consider oral alternative when he follow up with primary oncologist. 4. Fluid overload and ascites. From thrombosis and IVF. Agree with Lasix and can consider aldactone.
[2018-01-20] MEDS: Furosemide TAB* 20 MG PO SCH (18:08)
[2018-01-20] MEDS: Spironolactone TAB* 25 MG PO SCH (18:08)
[2018-01-20] MEDS: Enoxaparin(*) 100 MG/ML SYR SUBCUT SCH (20:16)
[2018-01-21] MEDS: Morphine VIAL* 4 MG/ML VIAL (1 ml vial) IV PRN ×8 (01:09→22:28)
[2018-01-21] MEDS: Baclofen TAB* 10 MG PO PRN ×2 (03:32→15:01)
[2018-01-21] MEDS: oxyCODONE TAB* 5 MG TAB PO PRN ×2 (06:45→21:54)
[2018-01-21] MEDS: Insulin LISPRO* 1 UNITS UNIT SUBCUT SCH ×3 (08:33→17:20)
[2018-01-21] MEDS: CREON PO SCH ×3 (08:33→17:19)
[2018-01-21] MEDS: Furosemide TAB* 20 MG PO SCH (08:34)
[2018-01-21] MEDS: Atorvastatin* 20 MG TAB PO SCH (08:34)
[2018-01-21] MEDS: Metoprolol Tartrate TAB* 25 MG PO SCH ×2 (08:34→20:25)
[2018-01-21] MEDS: Aspirin 81 mg CHEW TAB* 81 MG TAB.CHEW PO SCH (08:34)
[2018-01-21] MEDS: Omeprazole CAP* 20 MG PO SCH (08:34)
[2018-01-21] MEDS: Spironolactone TAB* 25 MG PO SCH (08:34)
[2018-01-21] MEDS: LIDO MOUTHWASH SWISH SPIT SCH ×4 (08:35→20:35)
[2018-01-21] MEDS: MAGIC M W2 BEN SWISH SPIT SCH ×4 (08:35→20:35)
[2018-01-21] MEDS: NYST SWISH SPIT SCH ×4 (08:35→20:35)
[2018-01-21] MEDS: MAAL SWISH SPIT SCH ×4 (08:35→20:35)
[2018-01-21] MEDS: Enoxaparin(*) 100 MG/ML SYR SUBCUT SCH ×2 (08:36→20:35)
[2018-01-21] MEDS ORDERED: Alteplase (CATHFLO)* 2 MG VIAL IV PRN (08:55)
[2018-01-21] MEDS: Cefepime 1 GM in Dextrose(*) 1 GM/50 ML BAG IV SCH ×2 (10:38→22:27)
[2018-01-21 15:19] LABS: Hematocrit 32 % (42-52); Mean Corpuscular HGB Conc 34 g/dl (31-36); Mean Corpuscular Hemoglobin 29 pg (27-31); Mean Corpuscular Volume 84 fL (80-94); Platelet Count 64 10^3/ul (150-450); Red Blood Count 3.85 10^6/ul (4.0-5.4); Red Cell Distribution Width 17 % (10.5-15); White Blood Count 1.5 10^3/ul (3.5-10.8)
[2018-01-21 15:31] LABS: EGFR Non-African American 75.5 (>60)
[2018-01-21 16:03] LABS: ABS Basophils 0 10^3/ul (0-0.2); ABS Eosinophils 0 10^3/ul (0-0.6); ABS Lymphocytes 0.5 10^3/ul (1.0-4.8); ABS Monocytes 0.5 10^3/ul (0-0.8); ABS Neutrophils 0.6 10^3/ul (1.5-7.7); ABS Nucleated RBC 0 10^3/ul; Eosinophil % 0.3 % (0-6); Nucleated Red Blood Cells % 0.3
[2018-01-21] MEDS ORDERED: Spironolactone TAB* 25 MG PO SCH (16:06)
--- NOTE | 2018-01-21 16:26 | PN ---
Subjective Date of Service: 01/21/18 Interval History: Mouth sore but pain control is adequate. Pt states he has enough oxycodone and oxymorphine at home. Objective Active Medications: Alteplase, Recombinant (Cathflo Activase*) 2 mg IV Q24H PRN PRN Reason: port obstruction Last Admin: 01/21/18 09:43 Dose: 2 mg Aspirin (Aspirin 81 Mg Chew Tab*) 81 mg PO DAILY [facility] Last Admin: 01/21/18 08:34 Dose: 81 mg Atorvastatin Calcium (Lipitor*) 20 mg PO DAILY [facility] Last Admin: 01/21/18 08:34 Dose: 20 mg Baclofen (Lioresal Tab*) 10 mg PO TID PRN PRN Reason: hiccups Last Admin: 01/21/18 15:01 Dose: 10 mg Dextrose (D50w Syringe 50 Ml*) 12.5 gm IV PUSH .FOR FS < 60 - SS PRN PRN Reason: FS < 60 Last Admin: 01/20/18 07:46 Dose: 12.5 gm Enoxaparin Sodium (Lovenox(*)) 100 mg SUBCUT Q12H [facility] Last Admin: 01/21/18 08:36 Dose: 100 mg Furosemide (Lasix Tab*) 20 mg PO DAILY [facility] Last Admin: 01/21/18 08:34 Dose: 20 mg Heparin Sodium (Porcine) (Heparin Flush Port (Ivad)) 5 ml IV FLUSH DAILY [facility] PRN Reason: Protocol Last Admin: 01/21/18 08:35 Dose: 5 ml Cefepime HCl (Maxipime 1 Gm In Dextrose Duplex (*)) 1 gm in 50 mls @ 100 mls/ hr IV Q12H [facility] Last Admin: 01/21/18 10:38 Dose: 100 mls/hr Insulin Human Lispro (Humalog*) 0 units SUBCUT AC [facility] PRN Reason: Protocol Last Admin: 01/21/18 12:16 Dose: 6 units Metoprolol Tartrate (Lopressor Tab*) 37.5 mg PO BID [facility] Last Admin: 01/21/18 08:34 Dose: 37.5 mg Morphine Sulfate (Morphine Vial*) 2 mg IV Q2H PRN PRN Reason: PAIN - MILD Last Admin: 01/21/18 15:01 Dose: 2 mg Multi-Ingredient Mouthwash/Gargle (Magic M W2 Deejay/Maal/Nyst/Lido*) 5 ml SWISH SPIT QID [facility] Last Admin: 01/21/18 12:15 Dose: 5 ml Creon (12k-38k-60k) 2 cap PO TID AC [facility] Last Admin: 01/21/18 12:16 Dose: 2 cap Omeprazole (Prilosec Cap*) 20 mg PO DAILY [facility] Last Admin: 01/21/18 08:34 Dose: 20 mg Ondansetron HCl (Zofran 40 Mg Vial*) 4 mg IV Q4H PRN PRN Reason: NAUSEA/VOMITING Last Admin: 01/16/18 22:37 Dose: 4 mg Ondansetron HCl (Zofran Odt Tab*) 4 mg SL Q6H PRN PRN Reason: NAUSEA/VOMITING Last Admin: 01/20/18 02:23 Dose: 4 mg Oxycodone HCl (Roxycodone Tab*) 10 mg PO Q2H PRN PRN Reason: PAIN Last Admin: 01/21/18 06:45 Dose: 10 mg Prochlorperazine Edisylate (Compazine Inj*) 10 mg IV Q6H PRN PRN Reason: NAUSEA/VOMITING Last Admin: 01/13/18 20:11 Dose: 10 mg Spironolactone (Aldactone Tab*) 50 mg PO DAILY [facility] Vital Signs - 8 hr 01/21/18 01/21/18 01/21/18 08:33 10:38 11:29 Temperature 97.7 F Pulse Rate 81 Respiratory 14 14 18 Rate Blood Pressure 115/83 (mmHg) O2 Sat by Pulse 98 Oximetry 01/21/18 01/21/18 01/21/18 11:40 15:01 15:09 Temperature 97.3 F Pulse Rate 65 Respiratory 14 14 12 Rate Blood Pressure 112/73 (mmHg) O2 Sat by Pulse 99 Oximetry Oxygen Devices in Use Now: None Appearance: Alert, supine in bed with both legs elevated. Eyes: No Scleral Icterus Abdominal: NL Sounds; No Tenderness; No Distention, No Hepatosplenomegaly - massive ascites, - Extremities: No Clubbing, Cyanosis, - - No edema with both legs elevated at 4 PM. Skin: No Rash or Ulcers, No Nodules or Sclerosis, - Neurological: Alert and Oriented x 3, NL Sensation Result Diagrams: 01/21/18 15:08 06/10/18 15:08 Additional Lab and Data: Laboratory Results - last 24 hr 01/18/18 01/19/18 01/19/18 17:02 06:15 07:57 WBC 1.1 L RBC 3.88 L Hgb 11.1 L Hct 32 L MCV 84 MCH 29 MCHC 34 RDW 17 H Plt Count 52 L MPV 7.1 L Neut % (Auto) 25.7 L Lymph % (Auto) 43.4 [place] % (Auto) 29.6 H Eos % (Auto) 0.7 Baso % (Auto) 0.6 Absolute Neuts (auto) 0.3 L* Absolute Lymphs (auto) 0.5 L Absolute Monos (auto) 0.3 Absolute Eos (auto) 0 Absolute Basos (auto) 0 Absolute Nucleated RBC 0 Nucleated RBC % 0.1 POC Glucose (mg/dL) 73 53 L 01/19/18 01/19/18 01/19/18 08:26 09:01 09:44 WBC RBC Hgb Hct MCV MCH MCHC RDW Plt Count MPV Neut % (Auto) Lymph % (Auto) [place] % (Auto) Eos % (Auto) Baso % (Auto) Absolute Neuts (auto) Absolute Lymphs (auto) Absolute Monos (auto) Absolute Eos (auto) Absolute Basos (auto) Absolute Nucleated RBC Nucleated RBC % POC Glucose (mg/dL) 50 L 58 L 67 L 01/19/18 11:14 WBC RBC Hgb Hct MCV MCH MCHC RDW Plt Count MPV Neut % (Auto) Lymph % (Auto) [place] % (Auto) Eos % (Auto) Baso % (Auto) Absolute Neuts (auto) Absolute Lymphs (auto) Absolute Monos (auto) Absolute Eos (auto) Absolute Basos (auto) Absolute Nucleated RBC Nucleated RBC % POC Glucose (mg/dL) 77 Microbiology and Other Data: Microbiology 01/13/18 23:12 Blood Venous Aerobic Blood Culture - Final No Growth Day 5 01/13/18 23:12 Blood Venous Anaerobic Blood Culture - Final No Growth Day 5 01/13/18 20:30 Blood Venous Aerobic Blood Culture - Final No Growth Day 5 01/13/18 20:30 Blood Venous Anaerobic Blood Culture - Final No Growth Day 5 01/14/18 14:32 Stool Stool Culture - Final 01/14/18 14:32 Stool Stool Gross Appearance - Final 01/14/18 14:32 Stool Shiga Toxin I & II - Final Negative Shiga Toxin 1 & 2 01/13/18 20:29 Urine Urine Culture - Final 01/14/18 14:32 Stool Stool Gross Appearance - Final 01/14/18 14:32 Stool C. difficile DNA Amplification - Final 027 Presumptive NEGATIVE Toxigenic C.diff NEGATIVE 01/14/18 14:32 Stool Stool Gross Appearance - Final 01/14/18 14:32 Stool Stool Lactoferrin - Final 01/14/18 14:32 Stool Stool Occult Blood (LAURA) - Final Assess/Plan/Problems-Billing Assessment: 62 yr old with PMHx of pancreatic cancer (dx December 2015 s/p neoadjuvant xeloda/RT and now s/p 2nd cycle of mFOLFIRONX who was admitted with abdmoninal pain severe neutropenia and initial fever. Thrombocytopenic. Progression of peritoneal implants/carcinomatosis and e/o portal vein thrombus on imaging. Cefepime. - Patient Problems (1) Neutropenic fever Current Visit: Yes Status: Acute Code(s): D70.9 - NEUTROPENIA, UNSPECIFIED; R50.81 - FEVER PRESENTING WITH CONDITIONS CLASSIFIED ELSEWHERE SNOMED Code(s) : 238246727 Comment: ANC improved to 600 on 01/21. continue cefepime until ANC >1000 or >800 and clearly rising. Has remained afebrile over 7 days and cultures negative. likely 2/2 chemo with perhaps underlying MDS. (2) Pancreatic cancer Current Visit: No Status: Acute Comment: Discused with Dr. Mccarthy on [facility] , follows in [place] office. Discussed possible AC for portal vein thrombosis with Dr. Hinojosa, possible diuretics. Low sodiium diet, restrict fluids to 1600 ml per day. Continue Creon Started enoxaparin 01/20 for portal vein thrombosis. Started furosemide and spironolactone 01/20 for ascites. Fup with his oncologist in [place] (3) DM type 2 causing CKD stage 3 Current Visit: No Status: Acute Code(s): E11.22 - TYPE 2 DIABETES MELLITUS W DIABETIC CHRONIC KIDNEY DISEASE; N18.3 - CHRONIC KIDNEY DISEASE, STAGE 3 ( MODERATE) SNOMED Code(s): 99120140 Comment: cont ISS, not needing as of 01/20. creat wnl 01/20. Resumed metformin and Lantus (inplace of detemir) 01/21 PM. Resume dapagligflozin at home. (4) Common bile duct (CBD) obstruction Current Visit: No Status: Acute Priority: High Code(s): K83.1 - OBSTRUCTION OF BILE DUCT SNOMED Code(s): 483167249 Comment: Metallic stent in place. (5) CAD (coronary artery disease) Current Visit: No Status: Chronic Priority: Medium Code(s): I25.10 - ATHSCL HEART DISEASE OF [place] CORONARY ARTERY W/O ANG PCTRS SNOMED Code(s): 86372417 Comment: Asymptomatic, cont BB, statin Resume aspirin 01/20. Status and Disposition: inpatient for severe neutropenia, initially with fever. Requires ANC at least 800 before discharge per heme/onc Discharge home with early appointment with his oncologist in [place]. .
[2018-01-21] MEDS ORDERED: Insulin GLARGINE(*) 1 UNITS UNIT SUBCUT SCH (17:00)
[2018-01-21] MEDS: metFORMIN* 1,000 MG TAB PO SCH (17:19)
[2018-01-22] MEDS: oxyCODONE TAB* 5 MG TAB PO PRN ×2 (00:01→05:37)
[2018-01-22] MEDS: Morphine VIAL* 4 MG/ML VIAL (1 ml vial) IV PRN ×4 (00:21→07:53)
[2018-01-22 05:33] VITALS: BP 127/85
[2018-01-22 06:10] LABS: Hematocrit 36 % (42-52); Hemoglobin 12.1 g/dl (14.0-18.0); Mean Corpuscular HGB Conc 33 g/dl (31-36); Mean Corpuscular Hemoglobin 28 pg (27-31); Mean Corpuscular Volume 85 fL (80-94); Mean Platelet Volume 8.5 um3 (7.4-10.4); Platelet Count 81 10^3/ul (150-450); Red Blood Count 4.24 10^6/ul (4.0-5.4); Red Cell Distribution Width 18 % (10.5-15); White Blood Count 2.1 10^3/ul (3.5-10.8)
[2018-01-22 06:12] LABS: ABS Basophils 0 10^3/ul (0-0.2); ABS Eosinophils 0 10^3/ul (0-0.6); ABS Lymphocytes 0.7 10^3/ul (1.0-4.8); ABS Monocytes 0.6 10^3/ul (0-0.8); ABS Neutrophils 0.9 10^3/ul (1.5-7.7)
[2018-01-22 06:14] LABS: EGFR Non-African American 69.8 (>60)
[2018-01-22 06:34] LABS: ABS Nucleated RBC 0 10^3/ul; Eosinophil % 0.4 % (0-6); Lymphocyte % 32.3 % (25-47); Nucleated Red Blood Cells % 0.1
[2018-01-22] MEDS: CREON PO SCH (07:53)
[2018-01-22] MEDS: Insulin LISPRO* 1 UNITS UNIT SUBCUT SCH (07:56)
[2018-01-22] MEDS: Enoxaparin(*) 100 MG/ML SYR SUBCUT SCH (07:57)
[2018-01-22] MEDS: Aspirin 81 mg CHEW TAB* 81 MG TAB.CHEW PO SCH (07:59)
[2018-01-22] MEDS: Atorvastatin* 20 MG TAB PO SCH (07:59)
[2018-01-22] MEDS: Furosemide TAB* 20 MG PO SCH (08:00)
[2018-01-22] MEDS: Omeprazole CAP* 20 MG PO SCH (08:00)
[2018-01-22] MEDS: Metoprolol Tartrate TAB* 25 MG PO SCH (08:00)
[2018-01-22] MEDS: metFORMIN* 1,000 MG TAB PO SCH (08:00)
[2018-01-22] MEDS: MAAL SWISH SPIT SCH (09:16)
[2018-01-22] MEDS: LIDO MOUTHWASH SWISH SPIT SCH (09:16)
[2018-01-22] MEDS: MAGIC M W2 BEN SWISH SPIT SCH (09:16)
[2018-01-22] MEDS: NYST SWISH SPIT SCH (09:16)
--- NOTE | 2018-01-24 01:21 | ED ---
Oksana Matos Elizabeth, scribed for Antonino White MD on 01/13/18 at 2000 . Abdominal Pain/Male - HPI Summary HPI Summary: This patient is a 62 year old M presenting to [facility] with a chief complaint of abd pain since this morning. The patient rates the pain 10/10 in severity. Symptoms aggravated by nothing. Symptoms alleviated by nothing. Patient reports chills, fever, and diarrhea x5. The patient has been fighting pancreatic CA and stomach CA for 3 years and recently restarted chemotherapy. The patient notes that he recently had his third session of chemo. - History of Current Complaint Chief Complaint: EDNauseaVomitDiarrh Stated Complaint: FEVER Time Seen by Provider: 01/13/18 19:45 Hx Obtained From: Patient Onset/Duration: Sudden Onset, Lasting Hours, Still Present Timing: Constant Severity Initially: Mild Severity Currently: Mild Pain Intensity: 0 Pain Scale Used: 0-10 Numeric Location: Diffuse Aggravating Factor(s): Nothing Alleviating Factor(s): Nothing Associated Signs And Symptoms: Positive: Fever, Diarrhea, Other - Chills - Allergies/Home Medications Allergies/Adverse Reactions: Allergies Allergy/AdvReac Type Severity Reaction Status Date / Time celecoxib [From Celebrex] Allergy Intermediate Swelling Verified 01/01/18 22:29 pregabalin [From Lyrica] Allergy Intermediate Swelling Verified 01/01/18 22:29 quinine Allergy Intermediate Swelling Verified 01/01/18 22:29 PMH/Surg Hx/FS Hx/Imm Hx Endocrine/Hematology History: Reports: Hx Diabetes - TYPE 2 Cardiovascular History: Reports: Hx Congestive Heart Failure, Hx Coronary Artery Disease, Hx Hypercholesterolemia, Hx Hypertension - ON MEDS Respiratory History: Reports: Hx Asthma GI History: Reports: Hx Gastroesophageal Reflux Disease, Hx Jaundice - 1960s History: Reports: Hx Kidney Stones, Other Problems/Disorders - kidney doc says kidney fine but pees brown Denies: Hx Renal Disease Musculoskeletal History: Reports: Hx Back Problems - low back pain Sensory History: Reports: Hx Contacts or Glasses - reading glasses at home Denies: Hx Hearing Aid Opthamlomology History: Reports: Hx Contacts or Glasses - reading glasses at home Psychiatric History: Reports: Other Psychiatric Issues/Disorders - claustrophobic - Cancer History Cancer Type, Location and Year: Pancreatic, Diagnosed in December 2015. Stomach Hx Chemotherapy: Yes - Surgical History Surgery Procedure, Year, and Place: back surgery; Right Knee Surgery March 30, 2012, cardiac cath with stents, [facility] PROCEDURE Hx Anesthesia Reactions: No Infectious Disease History: No Infectious Disease History: Denies: Traveled Outside the [place] in Last 30 Days - Family History Known Family History: Positive: Cardiac Disease - Father - [place], Diabetes - Mother - DM - Social History Alcohol Use: None Hx Substance Use: No Substance Use Type: Reports: None Substance Use Comment - Amount & Last Used: oxycontin and nucynta Hx Tobacco Use: Yes Smoking Status (MU): Former Smoker Type: Cigarettes Amount Used/How Often: 1 can a week Have You Smoked in the Last Year: No Review of Systems Positive: Fever, Chills Negative: Epistaxis Positive: Abdominal Pain, Diarrhea Positive: Bruising - on both arms and stomach All Other Systems Reviewed And Are Negative: Yes Physical Exam - Summary Physical Exam Summary: Appearance: Well-appearing, Well-nourished, Well-hydrated lying in bed comfortably Skin: Warm, dry, no obvious rash. Not jaundiced. Bruises on abdomen and both arms Eyes: sclera anicteric, no conjunctival pallor ENT: mucous membranes moist, pharynx appears normal Neck: Supple, nontender Respiratory: Clear to auscultation, no signs of respiratory distress Cardiovascular: Normal S1, S2. No murmurs. Normal distal pulses in tibial and radial bilaterally. Abdomen: Soft, mild tenderness, normal active bowel sounds present, no peritoneal signs, bruises on abdomen Musculoskeletal: Normal, Strength/ROM Intact Neurological: A&Ox3, awake and alert, mentation is normal, speech is fluent and appropriate Psychiatric: affect is normal, does not appear anxious or depressed Triage Information Reviewed: Yes Vital Signs On Initial Exam: Initial Vitals Temp Pulse Resp BP Pulse Ox 98.8 F 73 18 128/86 96 01/13/18 19:02 01/13/18 19:02 01/13/18 19:02 01/13/18 19:02 01/13/18 19:02 Vital Signs Reviewed: Yes Diagnostics - Vital Signs Vital Signs Temp Pulse Resp BP Pulse Ox 01/13/18 19:02 98.8 F 73 18 128/86 96 - Laboratory Lab Results: Lab Results 01/13/18 01/13/18 01/13/18 Range/Units 20:29 20:30 20:30 WBC 1.9 L (3.5-10.8) 10^3/ul RBC 4.16 (4.0-5.4) 10^6/ul Hgb 11.9 L (14.0-18.0) g/dl Hct 35 L (42-52) % MCV 85 (80-94) fL MCH 29 (27-31) pg MCHC 34 (31-36) g/dl RDW 16 H (10.5-15) % Plt Count 45 L (150-450) 10^3/ul MPV 7.8 (7.4-10.4) um3 Neut % (Auto) 73.6 (38-83) % Lymph % (Auto) 17.7 L (25-47) % [place] % (Auto) 8.6 H (0-7) % Eos % (Auto) 0.1 (0-6) % Baso % (Auto) 0 (0-2) % Absolute Neuts (auto) 1.4 L (1.5-7.7) 10^3/ul Absolute Lymphs (auto) 0.3 L (1.0-4.8) 10^3/ul Absolute Monos (auto) 0.2 (0-0.8) 10^3/ul Absolute Eos (auto) 0 (0-0.6) 10^3/ul Absolute Basos (auto) 0 (0-0.2) 10^3/ul Absolute Nucleated RBC 0 10^3/ul Nucleated RBC % 0.1 INR (Anticoag Therapy) 1.03 H (0.77-1.02) APTT 22.3 L (26.0-36.3) seconds Sodium (139-145) mmol/L Potassium (3.5-5.0) mmol/L Chloride (101-111) mmol/L Carbon Dioxide (22-32) mmol/L Anion Gap (2-11) mmol/L BUN (6-24) mg/dL Creatinine (0.67-1.17) mg/dL Est GFR ( Amer) (>60) Est GFR (Non-Af Amer) (>60) BUN/Creatinine Ratio (8-20) Glucose (70-100) mg/dL Lactic Acid (0.5-2.0) mmol/L Calcium (8.6-10.3) mg/dL Total Bilirubin (0.2-1.0) mg/dL AST (13-39) U/L ALT (7-52) U/L Alkaline Phosphatase (34-104) U/L Troponin I (<0.04) ng/mL Total Protein (6.4-8.9) g/dL Albumin (3.2-5.2) g/dL Globulin (2-4) g/dL Albumin/Globulin Ratio (1-3) Urine Color Yellow Urine Appearance Clear Urine pH 5.0 (5-9) Ur Specific [place] 1.030 (1.010-1.030) Urine Protein 2+(100 mg/dl) A (Negative) Urine Ketones Negative (Negative) Urine Blood Negative (Negative) Urine Nitrate Negative (Negative) Urine Bilirubin Negative (Negative) Urine Urobilinogen Negative (Negative) Ur Leukocyte Esterase Negative (Negative) Urine WBC (Auto) Trace(0-5/hpf) (Absent) Urine RBC (Auto) Trace(0-2/hpf) (Absent) Urine Bacteria Absent (Absent) Urine Glucose 3+(>=500 mg/dl) A (Negative) 01/13/18 01/13/18 Range/Units 20:30 20:30 WBC (3.5-10.8) 10^3/ul RBC (4.0-5.4) 10^6/ul Hgb (14.0-18.0) g/dl Hct (42-52) % MCV (80-94) fL MCH (27-31) pg MCHC (31-36) g/dl RDW (10.5-15) % Plt Count (150-450) 10^3/ul MPV (7.4-10.4) um3 Neut % (Auto) (38-83) % Lymph % (Auto) (25-47) % [place] % (Auto) (0-7) % Eos % (Auto) (0-6) % Baso % (Auto) (0-2) % Absolute Neuts (auto) (1.5-7.7) 10^3/ul Absolute Lymphs (auto) (1.0-4.8) 10^3/ul Absolute Monos (auto) (0-0.8) 10^3/ul Absolute Eos (auto) (0-0.6) 10^3/ul Absolute Basos (auto) (0-0.2) 10^3/ul Absolute Nucleated RBC 10^3/ul Nucleated RBC % INR (Anticoag Therapy) (0.77-1.02) APTT (26.0-36.3) seconds Sodium 135 L (139-145) mmol/L Potassium 3.9 (3.5-5.0) mmol/L Chloride 103 (101-111) mmol/L Carbon Dioxide 22 (22-32) mmol/L Anion Gap 10 (2-11) mmol/L BUN 24 (6-24) mg/dL Creatinine 0.98 (0.67-1.17) mg/dL Est GFR ( Amer) 99.3 (>60) Est GFR (Non-Af Amer) 77.2 (>60) BUN/Creatinine Ratio 24.5 H (8-20) Glucose 136 H (70-100) mg/dL Lactic Acid 3.6 H* (0.5-2.0) mmol/L Calcium 7.9 L (8.6-10.3) mg/dL Total Bilirubin 0.60 (0.2-1.0) mg/dL AST 37 (13-39) U/L ALT 42 (7-52) U/L Alkaline Phosphatase 118 H (34-104) U/L Troponin I 0.02 (<0.04) ng/mL Total Protein 5.2 L (6.4-8.9) g/dL Albumin 2.9 L (3.2-5.2) g/dL Globulin 2.3 (2-4) g/dL Albumin/Globulin Ratio 1.3 (1-3) Urine Color Urine Appearance Urine pH (5-9) Ur Specific [place] (1.010-1.030) Urine Protein (Negative) Urine Ketones (Negative) Urine Blood (Negative) Urine Nitrate (Negative) Urine Bilirubin (Negative) Urine Urobilinogen (Negative) Ur Leukocyte Esterase (Negative) Urine WBC (Auto) (Absent) Urine RBC (Auto) (Absent) Urine Bacteria (Absent) Urine Glucose (Negative) Result Diagrams: 01/22/18 05:33 01/22/18 05:33 Lab Statement: Any lab studies that have been ordered have been reviewed, and results considered in the medical decision making process. Abdominal Pain Fem Course/Dx - Diagnoses Provider Diagnoses: Pancreatic cancer, Abdominal pain, Fever - Provider Notifications Discussed Care Of Patient With: Logan Alcazar Time Discussed With Above Provider: 21:48 Instructed by Provider To: Admit As Inpatient Discharge - Sign-Out/Discharge Documenting (check all that apply): Discharge/Admit/Transfer - Discharge Plan Condition: Stable Disposition: ADMITTED TO [facility] - Billing Disposition and Condition Condition: STABLE Disposition: Admitted to [facility] The documentation as recorded by the Oksana calhoun Elizabeth accurately reflects the service I personally performed and the decisions made by , Antonino White MD.
== END 2018-01-22 10:15 | disposition home or self-care (01) | DRG 660 ==
LOC: ED 18:57 → MEDTELE 22:23 → MED 01-14 07:20
PROVIDERS: ADMIT Internal Medicine; ATTEND Internal Medicine
DX: D70.1 Agranulocytosis secondary to cancer chemotherapy (principal); I81 Portal vein thrombosis; K83.1 Obstruction of bile duct; C25.9 Malignant neoplasm of pancreas, unspecified; C78.6 Secondary malignant neoplasm of retroperitoneum and peritoneum; R18.8 Other ascites; E87.2 Acidosis; T45.1X5A Adverse effect of antineoplastic and immunosuppressive drugs, initial encounter; R50.81 Fever presenting with conditions classified elsewhere; K12.31 Oral mucositis (ulcerative) due to antineoplastic therapy; E11.22 Type 2 diabetes mellitus with diabetic chronic kidney disease; E11.649 Type 2 diabetes mellitus with hypoglycemia without coma; N18.3 Chronic kidney disease, stage 3 (moderate); I25.10 Atherosclerotic heart disease of native coronary artery without angina pectoris; I13.10 Hypertensive heart and chronic kidney disease without heart failure, with stage 1 through stage 4 chronic kidney disease, or unspecified chronic kidney disease; Z66 Do not resuscitate; M54.89 Other dorsalgia; D69.59 Other secondary thrombocytopenia; E87.70 Fluid overload, unspecified; R06.6 Hiccough; R10.9 Unspecified abdominal pain; Y92.9 Unspecified place or not applicable; I25.2 Old myocardial infarction; Z79.84 Long term (current) use of oral hypoglycemic drugs; Z79.82 Long term (current) use of aspirin; Z79.899 Other long term (current) drug therapy; Z88.8 Allergy status to other drugs, medicaments and biological substances; Z83.3 Family history of diabetes mellitus; Z82.49 Family history of ischemic heart disease and other diseases of the circulatory system; Z87.891 Personal history of nicotine dependence
CPT/HCPCS: 36415; 71046; 74018; 74177; 80048; 80053; 80076; 81003; 81015; 82272; 82947; 83036; 83605; 83630; 84484; 85025; 85060; 85610; 85730; 86140; 87040; 87045; 87046; 87077; 87086; 87493; 87899; 99223; 99232; 99284; A9270-GY; J0692; J0780; J1642; J1650; J2270; Q9967

== ENCOUNTER 2018-01-25 08:13 | Inpatient (IN) | payer MEDICAID ==
[2018-01-25] MEDS ORDERED: HYDROmorphone INJ* 1 MG/ML CARPUJECT SYRINGE IV ONE (08:56)
[2018-01-25] MEDS ORDERED: HYDROmorphone INJ* 2 MG/ML CARPUJECT SYRINGE IV ONE (09:00)
[2018-01-25 09:39] LABS: ABS Basophils 0 10^3/ul (0-0.2); ABS Eosinophils 0 10^3/ul (0-0.6); ABS Lymphocytes 0.5 10^3/ul (1.0-4.8); ABS Monocytes 0.7 10^3/ul (0-0.8); ABS Neutrophils 4.4 10^3/ul (1.5-7.7); ABS Nucleated RBC 0 10^3/ul; Eosinophil % 0 % (0-6); Hematocrit 33 % (42-52); Hemoglobin 11.1 g/dl (14.0-18.0); Lymphocyte % 9.1 % (25-47); Mean Corpuscular HGB Conc 34 g/dl (31-36); Mean Corpuscular Hemoglobin 29 pg (27-31); Mean Corpuscular Volume 86 fL (80-94); Mean Platelet Volume 8.7 um3 (7.4-10.4); Nucleated Red Blood Cells % 0; Platelet Count 168 10^3/ul (150-450); Red Blood Count 3.83 10^6/ul (4.00-5.40); Red Cell Distribution Width 18 % (10.5-15); White Blood Count 5.7 10^3/ul (3.5-10.8)
[2018-01-25 09:48] LABS: INR 1.59 (0.77-1.02)
[2018-01-25 09:56] LABS: EGFR Non-African American 59.4 (>60)
[2018-01-25] MEDS ORDERED: Dextrose 50% Syringe 50 ML* 25 GM/50 ML SYRINGE ONE (10:00)
[2018-01-25] MEDS ORDERED: Dextrose 50% Syringe 50 ML* 25 GM/50 ML SYRINGE IV PUSH ONE (10:00)
[2018-01-25] MEDS ORDERED: NS 0.9% 500 ML* 500 ML IV ONE (13:02)
[2018-01-25] MEDS ORDERED: Enoxaparin(*) 100 MG/ML SYR SUBCUT SCH (14:00)
[2018-01-25] MEDS: Insulin LISPRO* 1 UNITS UNIT SUBCUT SCH ×3 (14:06→22:26)
[2018-01-25] MEDS: oxyCODONE TAB* 5 MG TAB PO PRN ×2 (14:16→20:41)
[2018-01-25 16:28] LABS: Hematocrit 33 % (42-52); Hemoglobin 10.9 g/dl (14.0-18.0)
[2018-01-25] MEDS ORDERED: Pancrelipase (NF) 12,000 UNITS CAP.DR PO SCH (17:00)
--- NOTE | 2018-01-25 17:12 | RAD ---
INDICATION: Elevated lactic acid. COMPARISON: Comparison is made with a prior chest x-ray study from January 13, 2018. TECHNIQUE: Dual-energy PA and lateral views of the chest were obtained. FINDINGS: The heart is within normal limits in size. There is a central venous catheter entering on the right side. The catheter tip projects over the right atrium. There is a small infiltrate at the left lung base which is new from the prior study. The lungs are slightly underinflated. There is flattening of the diaphragms consistent with chronic obstructive pulmonary disease. No pleural effusion is seen. IMPRESSION: 1. SMALL LEFT BASILAR INFILTRATE. 2. FINDINGS CONSISTENT WITH COPD.
[2018-01-25] MEDS ORDERED: NS 0.9% 1000 ML* 1,000 ML IV ONE (17:20)
--- NOTE | 2018-01-25 17:29 | HP ---
CC: Dr. Kvng Yanez; Dr. Mccarthy * HISTORY AND PHYSICAL: DATE OF ADMISSION: 01/25/18. PRIMARY CARE PROVIDER: Dr. Kvng Yanez. PRIMARY ONCOLOGIST: Dr. Mccarthy. ATTENDING PHYSICIAN: Laura Navarro MD * (dictated by Steven Campbell NP). CHIEF COMPLAINT: Abdominal pain, blood in stool, and shivering. HISTORY OF PRESENT ILLNESS: Mr. Weaver is a 62-year-old male with past medical history significant for diabetes mellitus, CHF, CAD, hyperlipidemia, hypertension, asthma, GERD, low back pain, pancreatic cancer with portal vein thrombosis, who was admitted to the hospital from 01/02/18 to 01/03/18 with complaints of abdominal pain. The patient was discharged. He then re- presented to the hospital on 01/13/18 and was hospitalized until 01/22/18 with complaints of abdominal pain and hiccups and neutropenic fever. The patient had received chemotherapy approximately 10 days prior and began feeling "freezing" and then feeling hot and sweaty. He had a temperature up to 102.5 and presented to the hospital. The patient was also complaining of persistent hiccups which at this point he has had for approximately 4 weeks and diarrhea. In general, the patient reports chronic abdominal discomfort since his Whipple procedure. The patient states that this morning he woke up and felt as though his glucose was low as he was having "shakes." He did not check his glucose, but ate a bottle of Ensure, a chocolate donut toast, two bananas, and an ham omelette and administered his 25 units of Levemir and 10 units of lispro. He then started shaking and found that his glucose was 25. He called EMS. The patient also continues to report abdominal pain, diarrhea. He reports blood on the toilet paper after moving his bowels, but did not look in the toilet to see if there is blood in the toilet. The patient states that all of his problems start with hiccups. He develops hiccups and then feels as though his abdomen gets bloated. He develops abdominal pain and then the pain goes to his back. Again, he endorses that this has been occurring since his Whipple procedure. At home, he generally states that his glucose is 100 to 120, but finds that it has been intermittently low recently. He denies any fevers, but reports feeling chills. He denies chest pain, cough, shortness of breath. He reports vomiting last evening. He reports that his diarrhea that he had had on his previous admission has resolved. He states in general his abdominal pain has been getting worse and more frequent over the last year. He reports passing a lot of flatus. He denies any urinary symptoms such as dysuria, urgency, or frequency. Reports getting 30 pounds since his admission on 01/13/18; states that he started out at 250 pounds and is now 280 pounds. He does not generally have lower extremity edema, but now has lower extremity edema. He denies any nasal congestion, postnasal drip, sore throat. Due to his symptoms again he called the EMS. EMS administered glucose and he was brought to the emergency room. While in the emergency room, the patient was found to have a glucose of 47. He received IV dextrose and Dilaudid for his pain. He had labs showing no leukocytosis. He was afebrile. His H and H were stable. His platelet count has recovered from his previous thrombocytopenia. His creatinine and BUN are slightly elevated. He as found to have a lactic acid of 3.9. Due to his symptoms, the hospitalists were asked to evaluate the patient for admission. PAST MEDICAL HISTORY: 1. Diabetes mellitus. 2. Heart failure, last known EF 45% to 50% in 2010. 3. Coronary artery disease. 4. Hyperlipidemia. 5. Hypertension. 6. Asthma. 7. GERD. 8. Low back pain. 9. Pancreatic cancer. 10. Portal vein thrombus. PAST SURGICAL HISTORY: 1. Status post biliary stenting x2. 2. Status post L4-5 laminectomy. 3. Status post right knee surgery. 4. Status post cardiac catheterization with stent placement. 5. Status post Whipple procedure. HOME MEDICATIONS: Include: 1. Levemir 25 units subcutaneous daily. 2. Metformin 1000 mg oral twice a daily. 3. Spironolactone 50 mg oral daily. 4. Simvastatin 40 mg oral daily. 5. Pancrelipase 2 tablets oral 3 times daily with meals. 6. Opana ER 7.5 mg every 12 hours. 7. Omeprazole 20 mg oral daily. 8. Metoprolol tartrate 37.5 mg oral twice daily. 9. Lispro insulin 8 to 10 units before meals. 10. Lasix 20 mg oral daily. 11. Lovenox 100 mg subcutaneous q. 12 hours. 12. Farxiga 10 mg oral daily. 13. Aspirin 81 mg oral daily. ALLERGIES: CELEBREX, LYRICA, and QUININE all cause swelling. FAMILY HISTORY: The patient's father had a history of diabetes mellitus and coronary artery disease. The patient's mother with a history of diabetes. He denies any family history of cancer. SOCIAL HISTORY: He is a former smoker, former alcoholic. He occasionally smokes marijuana. His daughter Allegra Weaver will be his surrogate decision maker in the event that he is unable to make decisions for himself. REVIEW OF SYSTEMS: I performed an 11-point review of systems. All the pertinent positives and negatives are mentioned in the history of present illness. The remaining review of systems are negative. PHYSICAL EXAMINATION GENERAL APPEARANCE: The patient is alert, pleasant, and appears to be in no acute distress. VITAL SIGNS: Temperature 96.7, heart rate 70, respiratory rate 20, O2 sat 99% on room air, blood pressure 90/57. HEENT: Normocephalic, atraumatic. Pupils are equal and reactive to light. Extraocular movements are intact. RESPIRATORY: There is no accessory muscle use. The lungs are clear to auscultation bilaterally. CARDIOVASCULAR: Regular rate and rhythm. S1 and S2 present. There are no murmurs, rubs, or gallops heard. ABDOMEN: Large, soft, nontender, nondistended. There are bowel sounds present x4. EXTREMITIES: There is 1 to 2+ pitting bilateral lower extremity edema. DP and PT pulses are 1+ and symmetric. MUSCULOSKELETAL: There is no clubbing or cyanosis noted. The patient exhibits good strength in all extremities. NEUROLOGIC: The patient is alert and oriented x4. Cranial nerves II through XII are grossly intact. PSYCHOLOGICAL: The patient is calm and cooperative. SKIN: There are no rashes or abnormalities seen. DIAGNOSTIC STUDIES/LABORATORY DATA: Sodium 140, potassium 4.7, chloride 111, CO2 20, BUN 33, creatinine 1.23, glucose 47 with repeat 144. Alk phos 179. INR 1.57, lactic acid 3.9. White blood cell count 5.7, hemoglobin 11.1, hematocrit 33, platelet count 168. IMPRESSION: Mr. Weaver is a 62-year-old male with past medical history significant for diabetes mellitus, congestive heart failure, coronary artery disease, hyperlipidemia, hypertension, asthma, GERD, low back pain, pancreatic cancer with portal vein thrombosis, who presents to the emergency room with complaints of chills, blood in the stool, abdominal pain. He will be admitted as an observation for hypoglycemia and elevated lactic acid. ASSESSMENT AND PLAN: 1. Hypoglycemia. I suspect when the patient woke up this morning and was feeling symptomatic, he likely was hypoglycemic. He then took all of his morning diabetes medications with his meal. I suspect this is causing his hypoglycemia. His last glucose in the ER is 115. We will continue to frequency monitor his glucose to ensure that he is not hypoglycemic again, as he does have long-acting insulin onboard. I am going to hold all of his home diabetes medications and order a Lispro sliding scale. 2. Elevated alactic acid. The patient has no clear signs of an infection at this time. I am going to check a chest x-ray, and a urinalysis. I will have a low threshold to start him on the antibiotics, but I will hold until these are completed. He has no leukocytosis. He is afebrile, not tachycardic, or tachypneic. I do not feel that he has an infection. He likely has an elevated lactic acid secondary to his metformin use and portal vein thrombosis. I will give him a 500 mL fluid bolus now. I am not going to give him any further fluids other than that, as he has gained 30 pounds since his admission on has 2+ pitting edema. He had blood cultures collected in the emergency room. 3. Acute kidney injury. The patient's creatinine is slightly elevated. I suspect this is secondary to diuretic use. We will give him the 500 fluid bolus , recheck in the morning. 4. Suspected lower gastrointestinal bleed. I suspect this is related to hemorrhoids as the patient is only seeing blood when he is wiping. Closely monitor the patient's H and H. 5. Hypotension. The patient has been hypotensive in the emergency room. I suspect a part of this is inaccurate blood pressure since he is lying on his left side and when he lays on his back that improved with 100 systolically. He is going to get a 500 fluid bolus. We will continue to follow his blood pressures. 6. Diabetes mellitus. The patient will be on a consistent carbohydrate diet. I am going to check his glucose q. 4 hours until his glucose has steadily been within normal range. I am going to hold his Levemir, metformin, Farxiga, and place him on a Lispro sliding scale. 7. History of heart failure. The patient's last EF was 45% to 50% in 2010. He does not have crackles at this time, but he does have lower extremity edema. I am going to hold his spironolactone and furosemide. This can likely be resumed tomorrow if his labs are improving. We will do strict I's and O's and daily weights. 8. History of coronary artery disease. The patient will be continued on his home metoprolol, simvastatin. I am going to hold his baby aspirin in the setting of suspected lower GI bleed. I am going to hold the patient's aspirin, but in the setting of a portal vein thrombus, I am going to continue him on his Lovenox. If he shows any signs of significant bleed or his H and H starts dropping, I will hold his Lovenox. 9. Hyperlipidemia. The patient will be continued on his home simvastatin. 10. Hypertension. The patient has been hypotensive in the emergency room. We are going to hold his diuretics, but continue his metoprolol with hold parameters. 11. Asthma. There are no signs of an acute exacerbation. He is not on any medications at home. 12. GERD. We will continue him on his home omeprazole. 13. Low back pain. The patient will be continued on his home Opana. 14. Pancreatic cancer with portal vein thrombosis. The patient is to continue to follow with his primary oncologist. At this point, he does not appear to be neutropenic and his thrombocytopenia has resolved that he previously had. Due to the portal vein thrombus, I am going to continue him on his therapeutic Lovenox. The patient will be continued on his home pancrelipase. 15. Fluids, electrolytes, and nutrition: He will be on a consistent carbohydrate diet. 16. Code status: Do not resuscitate. He has a MOLST on file. 17. DVT prophylaxis: He is at high risk and will be continued on his therapeutic Lovenox. 18. Disposition: Observation. TIME SPENT: Time for this admission was approximately 60 minutes, greater than half of that was spent with the patient discussing medications, past medical history, the events leading up to his arrival today and performing a physical examination. The case has been reviewed with the attending, Dr. Naavrro, who agrees with the plan of care. STEVEN BENJAMIN, ABRASIVE WORKER [id number]/CPS #: [id number] RAZIA
[2018-01-25] MEDS ORDERED: NS 0.9% 1000 ML* 1,000 ML IV SCH (17:30)
[2018-01-25] MEDS ORDERED: Acetaminophen TAB* 325 MG PO PRN (17:54)
[2018-01-25] MEDS ORDERED: Zosyn per Pharmacy* NOTE FOLLOW UP SCH (18:00)
--- NOTE | 2018-01-25 18:08 | PN ---
Hospitalist Progress Note Date of Service: 01/25/18 Lactic acid has increased to 4.2 up from 3.9 (suspect secondary to a component of portal vein thrombus and metformin use at home). He is non toxic appearing at this time. Pt is not meeting SIRS criteria at this time (No leukocytosis, tachypnea, afebrile) but does have tachycardia. Not meeting Sofa criteria (1 point for creatinine 1.23). Chest xray shows a left lower lobe infiltrate. Will start Zosyn (suspect this could be HAP as Pt was just DC'd 2 days ago from a 10 day hospital stay) and give another liter of NS (For sepsis he should receive ~ 3800 ml fluid, but due to his 30 lb weight gain during last admission and 2+ bilateral LE edema. I will only give another liter for a total of 1.5 L and gentle IVFs after that. I do not feel that he has sepsis at this time [not scoring on SIRS or Sofa at this time]). Plan to recheck labs at 2200 tonight.
[2018-01-25] MEDS: Piperacillin/Tazobac ADVAN(*) 3.375 GM in NS 0.9% 100 ML* 100 ML IVPB ONE ×2 (18:14→19:58)
[2018-01-25] MEDS: Pancrelipase CAP* 5,000 UNITS CAP PO SCH (18:14)
[2018-01-25] MEDS: Morphine VIAL* 4 MG/ML VIAL (1 ml vial) IV PRN ×2 (18:16→22:37)
--- NOTE | 2018-01-25 18:24 | ED ---
John Matos Simon, scribed for Antonino Perez MD on 01/25/18 at 0840 . Abdominal Pain/Male - HPI Summary HPI Summary: This patient is a 62 year old M BIBA presenting to [facility] accompanied by friend Gagan with a chief complaint of abd pain with a 4/10 severity since this AM. Pt endorses diarrhea. Pt was here 01/22/18 for same problem. Pt says he has a port from liver to pancreas. Pt does not know if there was blood in toilet or just the toilet paper; the toilet paper was covered (with blood). He endorses that the problems all start from the hiccups, which make his belly bloat, and then the pain goes to his back. Pt endorses bloodless mild emesis last night (). Pt denies TTP, endorses pedal edema. Pt endorses feeling cold, I just cant get warm, endorses shivering that started this morning Zuleika never had the shakes this bad, never been this cold. - History of Current Complaint Chief Complaint: EDAbdPain Stated Complaint: ABD PAIN, BLOOD IN STOOL Time Seen by Provider: 01/25/18 08:20 Hx Obtained From: Patient Onset/Duration: Lasting Hours, Still Present Timing: Constant, Lasting Hours Severity Initially: Moderate Severity Currently: Moderate Pain Intensity: 4 Pain Scale Used: 0-10 Numeric Location: Diffuse Radiates: Yes Radiates to: Back Aggravating Factor(s): Other: - Hiccups Alleviating Factor(s): Nothing Associated Signs And Symptoms: Positive: Back Pain, Blood in Stool, Vomiting, Diarrhea, Other - Chills. Negative: Nausea - Allergies/Home Medications Allergies/Adverse Reactions: Allergies Allergy/AdvReac Type Severity Reaction Status Date / Time celecoxib [From Celebrex] Allergy Intermediate Swelling Verified 01/01/18 22:29 pregabalin [From Lyrica] Allergy Intermediate Swelling Verified 01/01/18 22:29 quinine Allergy Intermediate Swelling Verified 01/01/18 22:29 Home Medications: Home Medications Insulin Detemir (NF) [Levemir (NF)] 30 unit SUBCUT DAILY 01/25/18 [History Confirmed 01/25/18] Insulin LISPRO* [HumaLOG*] 8 - 10 units SUBCUT AC 01/25/18 [History Confirmed ] metFORMIN* [Glucophage 1000 MG TAB *] 1,000 mg PO BID 01/25/18 [History Confirmed 01/25/18] PMH/Surg Hx/FS Hx/Imm Hx Endocrine/Hematology History: Reports: Hx Diabetes - TYPE 2 Cardiovascular History: Reports: Hx Congestive Heart Failure, Hx Coronary Artery Disease, Hx Hypercholesterolemia, Hx Hypertension - ON MEDS Respiratory History: Reports: Hx Asthma GI History: Reports: Hx Gastroesophageal Reflux Disease, Hx Jaundice - 1960s History: Reports: Hx Kidney Stones, Other Problems/Disorders - kidney doc says kidney fine but pees brown Denies: Hx Renal Disease Musculoskeletal History: Reports: Hx Back Problems - low back pain Sensory History: Reports: Hx Contacts or Glasses - reading glasses at home Denies: Hx Hearing Aid Opthamlomology History: Reports: Hx Contacts or Glasses - reading glasses at home Psychiatric History: Reports: Other Psychiatric Issues/Disorders - claustrophobic - Cancer History Cancer Type, Location and Year: Pancreatic, Diagnosed in December 2015. Stomach Hx Chemotherapy: Yes - Surgical History Surgery Procedure, Year, and Place: back surgery; Right Knee Surgery March 30, 2012, cardiac cath with stents, WHIPPLE PROCEDURE Hx Anesthesia Reactions: No Infectious Disease History: No Infectious Disease History: Denies: Traveled Outside the [place] in Last 30 Days - Family History Known Family History: Positive: None, Cardiac Disease - Father - [place], Diabetes - Mother - [place] - Social History Alcohol Use: None Hx Substance Use: No Substance Use Type: Reports: None Substance Use Comment - Amount & Last Used: oxycontin and nucynta Hx Tobacco Use: Yes Smoking Status (MU): Former Smoker Type: Cigarettes Amount Used/How Often: 1 can a week Have You Smoked in the Last Year: No Review of Systems Positive: Chills Positive: Abdominal Pain - also distention, Vomiting - mild, Diarrhea, Other - hematochezia Positive: Edema - peripheral All Other Systems Reviewed And Are Negative: Yes Physical Exam - Summary Physical Exam Summary: Appearance: The patient is well-nourished in no acute distress and in no acute pain. Pt is shivering. Skin: The skin is warm and dry and skin color reflects adequate perfusion. HEENT: The head is normocephalic and atraumatic. The pupils are equal and reactive. The conjunctivae are clear and without drainage. Nares are patent and without drainage. Mouth reveals moist mucous membranes and the throat is without erythema and exudate. The external ears are intact. The ear canals are patent and without drainage. The tympanic membranes are intact. Neck: The neck is supple with full range of motion and non-tender. There are no carotid bruits. There is no neck vein distension. Respiratory: Chest is non-tender. Lungs are clear to auscultation, mild expiratory wheezes. Cardiovascular: Heart is regular rate, heart tones diminished. There is no murmur or rub auscultated. There is peripheral edema and pulses are symmetrical and equal. Abdomen: The abdomen is distended and tense, but non-tender. There are normal bowel sounds heard in all four quadrants and there is no organomegaly palpated. Musculoskeletal: There is no back tenderness noted. Extremities are non-tender with full range of motion. There is good capillary refill. There is peripheral edema, no calf tenderness elicited. Neurological: Patient is alert and oriented to person, place and time. The patient has symmetrical motor strength in all four extremities. Cranial nerves are grossly intact. Deep tendon reflexes are symmetrical and equal in all four extremities. Psychiatric: The patient has an appropriate affect and does not exhibit any anxiety or depression. Triage Information Reviewed: Yes Vital Signs On Initial Exam: Initial Vitals Temp Pulse Resp BP Pulse Ox 96.7 F 97 24 115/90 91 01/25/18 08:16 01/25/18 08:16 01/25/18 08:16 01/25/18 08:16 01/25/18 08:16 Vital Signs Reviewed: Yes Diagnostics - Vital Signs Vital Signs Temp Pulse Resp BP Pulse Ox 01/25/18 08:16 96.7 F 97 24 115/90 91 - Laboratory Lab Results: Lab Results 01/25/18 01/25/18 01/25/18 Range/Units 09:22 09:22 09:22 WBC 5.7 (3.5-10.8) 10^3/ul RBC 3.83 L (4.00-5.40) 10^6/ul Hgb 11.1 L (14.0-18.0) g/dl Hct 33 L (42-52) % MCV 86 (80-94) fL MCH 29 (27-31) pg MCHC 34 (31-36) g/dl RDW 18 H (10.5-15) % Plt Count 168 (150-450) 10^3/ul MPV 8.7 (7.4-10.4) um3 Neut % (Auto) 77.9 (38-83) % Lymph % (Auto) 9.1 L (25-47) % [place] % (Auto) 12.6 H (0-7) % Eos % (Auto) 0 (0-6) % Baso % (Auto) 0.4 (0-2) % Absolute Neuts (auto) 4.4 (1.5-7.7) 10^3/ul Absolute Lymphs (auto) 0.5 L (1.0-4.8) 10^3/ul Absolute Monos (auto) 0.7 (0-0.8) 10^3/ul Absolute Eos (auto) 0 (0-0.6) 10^3/ul Absolute Basos (auto) 0 (0-0.2) 10^3/ul Absolute Nucleated RBC 0 10^3/ul Nucleated RBC % 0 INR (Anticoag Therapy) (0.77-1.02) Sodium 140 (139-145) mmol/L Potassium 4.4 (3.5-5.0) mmol/L Chloride 111 (101-111) mmol/L Carbon Dioxide 20 L (22-32) mmol/L Anion Gap 9 (2-11) mmol/L BUN 33 H (6-24) mg/dL Creatinine 1.23 H (0.67-1.17) mg/dL Est GFR ( Amer) 76.4 (>60) Est GFR (Non-Af Amer) 59.4 (>60) BUN/Creatinine Ratio 26.8 H (8-20) Glucose 47 L* (70-100) mg/dL POC Glucose (mg/dL) (70-100) mg/dL Lactic Acid 3.9 H* (0.5-2.0) mmol/L Calcium 8.8 (8.6-10.3) mg/dL Total Bilirubin 0.50 (0.2-1.0) mg/dL AST 50 H (13-39) U/L ALT 50 (7-52) U/L Alkaline Phosphatase 179 H (34-104) U/L C-Reactive Protein 1.66 (< 5.00) mg/L Total Protein 5.6 L (6.4-8.9) g/dL Albumin 2.9 L (3.2-5.2) g/dL Globulin 2.7 (2-4) g/dL Albumin/Globulin Ratio 1.1 (1-3) Lipase 10 L (11.0-82.0) U/L 01/25/18 01/25/18 Range/Units 09:22 11:34 WBC (3.5-10.8) 10^3/ul RBC (4.00-5.40) 10^6/ul Hgb (14.0-18.0) g/dl Hct (42-52) % MCV (80-94) fL MCH (27-31) pg MCHC (31-36) g/dl RDW (10.5-15) % Plt Count (150-450) 10^3/ul MPV (7.4-10.4) um3 Neut % (Auto) (38-83) % Lymph % (Auto) (25-47) % [place] % (Auto) (0-7) % Eos % (Auto) (0-6) % Baso % (Auto) (0-2) % Absolute Neuts (auto) (1.5-7.7) 10^3/ul Absolute Lymphs (auto) (1.0-4.8) 10^3/ul Absolute Monos (auto) (0-0.8) 10^3/ul Absolute Eos (auto) (0-0.6) 10^3/ul Absolute Basos (auto) (0-0.2) 10^3/ul Absolute Nucleated RBC 10^3/ul Nucleated RBC % INR (Anticoag Therapy) 1.59 H (0.77-1.02) Sodium (139-145) mmol/L Potassium (3.5-5.0) mmol/L Chloride (101-111) mmol/L Carbon Dioxide (22-32) mmol/L Anion Gap (2-11) mmol/L BUN (6-24) mg/dL Creatinine (0.67-1.17) mg/dL Est GFR ( Amer) (>60) Est GFR (Non-Af Amer) (>60) BUN/Creatinine Ratio (8-20) Glucose (70-100) mg/dL POC Glucose (mg/dL) 144 H (70-100) mg/dL Lactic Acid (0.5-2.0) mmol/L Calcium (8.6-10.3) mg/dL Total Bilirubin (0.2-1.0) mg/dL AST (13-39) U/L ALT (7-52) U/L Alkaline Phosphatase (34-104) U/L C-Reactive Protein (< 5.00) mg/L Total Protein (6.4-8.9) g/dL Albumin (3.2-5.2) g/dL Globulin (2-4) g/dL Albumin/Globulin Ratio (1-3) Lipase (11.0-82.0) U/L Result Diagrams: 01/25/18 16:15 01/25/18 09:22 Lab Statement: Any lab studies that have been ordered have been reviewed, and results considered in the medical decision making process. Abdominal Pain Fem Course/Dx - Course Course Of Treatment: Mr. Weaver presented to the emergency department complaining of increasing abdominal pain as well as having seen blood on the toilet paper when he wiped this morning. His blood sugar was found to be 25 by EMS and he got oral glucose bringing up to 65 on fingerstick. On arrival here his blood sugar was 47 and he was given D50. 90 minutes later his blood sugar was 160. He arrived hypertensive but his blood pressure continued to drop while he was here. I spoke with Dr. Marie who felt that the patient should be admitted by the hospitalist service and I spoke with Dr. Pascal who agreed to admit. - Diagnoses Provider Diagnoses: Abdominal pain, Hypoglycemia - Provider Notifications Discussed Care Of Patient With: Samantha Marie Time Discussed With Above Provider: 11:38 Instructed by Provider To: Other - recommended admission Discharge - Sign-Out/Discharge Documenting (check all that apply): Discharge/Admit/Transfer - admit - Discharge Plan Condition: Fair Disposition: ADMITTED TO [facility] - Billing Disposition and Condition Condition: FAIR Disposition: Admitted to [facility] Consult Consult: [address] Pascal, accepted admission to [facility] [place]. The documentation as recorded by the John calhoun Simon accurately reflects the service I personally performed and the decisions made by me, Antonino Perez MD.
[2018-01-25] MEDS: Metoprolol Tartrate TAB* 25 MG PO SCH (20:39)
[2018-01-25] MEDS: Oxymorphone ER (NF) 5 MG TAB PO SCH (20:41)
[2018-01-25] MEDS: Enoxaparin(*) 100 MG/ML SYR SUBCUT SCH (20:45)
[2018-01-25 22:34] LABS: Hematocrit 28 % (42-52); Hemoglobin 9.5 g/dl (14.0-18.0)
[2018-01-25] MEDS: ZOSYN 3.375 GM Q8H per EXTENDED INFUSION IVPB SCH ×2 (22:38)
[2018-01-25] MEDS: Dextrose 50% Syringe 50 ML* 25 GM/50 ML SYRINGE IV PUSH PRN (23:16)
[2018-01-26] MEDS: Ondansetron 40 MG VIAL* 2 MG/ML 20 ML VIAL IV PRN (00:31)
[2018-01-26] MEDS: Insulin LISPRO* 1 UNITS UNIT SUBCUT SCH ×3 (02:38→10:23)
[2018-01-26] MEDS: Morphine VIAL* 4 MG/ML VIAL (1 ml vial) IV PRN ×5 (04:06→21:56)
[2018-01-26] MEDS: ZOSYN 3.375 GM Q8H per EXTENDED INFUSION IVPB SCH ×2 (05:09)
[2018-01-26] MEDS: oxyCODONE TAB* 5 MG TAB PO PRN ×2 (05:49→20:20)
[2018-01-26 05:54] LABS: Hematocrit 29 % (42-52); Hemoglobin 10.1 g/dl (14.0-18.0); Mean Corpuscular HGB Conc 35 g/dl (31-36); Mean Corpuscular Hemoglobin 29 pg (27-31); Mean Corpuscular Volume 85 fL (80-94); Mean Platelet Volume 8.1 um3 (7.4-10.4); Platelet Count 163 10^3/ul (150-450); Red Blood Count 3.45 10^6/ul (4.00-5.40); Red Cell Distribution Width 18 % (10.5-15); White Blood Count 5.2 10^3/ul (3.5-10.8)
[2018-01-26 06:10] LABS: EGFR Non-African American 55.8 (>60)
[2018-01-26 06:16] LABS: ABS Basophils 0 10^3/ul (0-0.2); ABS Eosinophils 0 10^3/ul (0-0.6); ABS Monocytes 1.1 10^3/ul (0-0.8); ABS Nucleated RBC 0 10^3/ul; Eosinophil % 0.7 % (0-6); Lymphocyte % 18.5 % (25-47); Nucleated Red Blood Cells % 0
[2018-01-26] MEDS: Dextrose 50% Syringe 50 ML* 25 GM/50 ML SYRINGE IV PUSH PRN (06:32)
[2018-01-26] MEDS ORDERED: D5NS 0.9% 1000 ML BAG* 1,000 ML IV SCH (07:00)
[2018-01-26] MEDS: Enoxaparin(*) 100 MG/ML SYR SUBCUT SCH (07:56)
[2018-01-26] MEDS: Oxymorphone ER (NF) 5 MG TAB PO SCH ×2 (07:57→20:46)
[2018-01-26] MEDS: Metoprolol Tartrate TAB* 25 MG PO SCH ×2 (07:58→20:46)
[2018-01-26] MEDS: Pancrelipase CAP* 5,000 UNITS CAP PO SCH ×3 (07:58→17:47)
[2018-01-26] MEDS: Omeprazole CAP* 20 MG PO SCH (07:58)
[2018-01-26] MEDS: Atorvastatin* 20 MG TAB PO SCH (07:58)
[2018-01-26] MEDS ORDERED: D10W 1000 ML BAG* 1,000 ML IV SCH (08:00)
[2018-01-26] MEDS ORDERED: Furosemide TAB* 20 MG PO SCH (09:00)
[2018-01-26] MEDS: Spironolactone TAB* 25 MG PO SCH (10:14)
[2018-01-26] MEDS ORDERED: ZOSYN 3.375 GM Q6H - Intermittant 30 min Infusion IVPB SCH ×2 (11:00)
[2018-01-26] MEDS ORDERED: Furosemide IV* 10 MG/ML VIAL (40 MG) IV SLOW PU ONE (11:06)
--- NOTE | 2018-01-26 12:37 | RAD ---
INDICATION: Ascites evaluation prior to paracentesis COMPARISON: None TECHNIQUE: Transverse and longitudinal scans of the 4 quadrants of the abdomen were performed. FINDINGS: There is a moderate amount of ascites identified in all 4 quadrants. IMPRESSION:MODERATE ASCITES.
--- NOTE | 2018-01-26 12:46 | PN ---
Subjective Date of Service: 01/26/18 Interval History: HOSPITALIST PROGRESS NOTE Patient seen and examined at bedside. Care reviewed and d/w Doreen Watkins RN. He continues to c/o abdominal/back pain 4/10 intensity, that increases to 8/10 with his hiccups. Denies N/V. Glucose was still low overnight, but better this AM. Family History: Unchanged from Admission Social History: Unchanged from Admission Past Medical History: Unchanged from Admission Objective Active Medications: Acetaminophen (Tylenol Tab*) 650 mg PO Q4H PRN PRN Reason: FEVER/PAIN Atorvastatin Calcium (Lipitor*) 20 mg PO DAILY [facility] Last Admin: 01/26/18 07:58 Dose: 20 mg Dextrose (D50w Syringe 50 Ml*) 12.5 gm IV PUSH .FOR FS < 60 - SS PRN PRN Reason: FS < 60 Last Admin: 01/26/18 06:32 Dose: 12.5 gm Heparin Sodium (Porcine) (Heparin Flush Port (Ivad)) 5 ml FLUSH DAILY [facility] PRN Reason: Protocol Last Admin: 01/26/18 10:14 Dose: Not Given Piperacillin Sod/Tazobactam (Sod 3.375 gm/ Sodium Chloride) 100 mls @ 25 mls/ hr IVPB 0000,0800,1600 [facility] Metoprolol Tartrate (Lopressor Tab*) 37.5 mg PO BID [facility] Last Admin: 01/26/18 07:58 Dose: 37.5 mg Morphine Sulfate (Morphine Vial*) 2 mg IV Q4H PRN PRN Reason: PAIN - BREAKTHROUGH Last Admin: 01/26/18 07:52 Dose: 2 mg Omeprazole (Prilosec Cap*) 20 mg PO 0730 [facility] Last Admin: 01/26/18 07:58 Dose: 20 mg Ondansetron HCl (Zofran 40 Mg Vial*) 4 mg IV Q6H PRN PRN Reason: NAUSEA Last Admin: 01/26/18 00:31 Dose: 4 mg Oxycodone HCl (Roxycodone Tab*) 5 mg PO Q6H PRN PRN Reason: PAIN - BREAKTHROUGH Last Admin: 01/26/18 05:49 Dose: 5 mg Oxymorphone HCl (Opana Er (Nf)) 5 mg PO BID [facility] Last Admin: 01/26/18 07:57 Dose: 5 mg Pancrelipase (Zenpep Delayed Cap*) 10,000 units PO TID WITH MEALS [facility] Last Admin: 01/26/18 07:58 Dose: Not Given Pharmacy Consult (Zosyn Per Pharmacy*) 1 note FOLLOW UP .ZOSYN PER PHARMACY [facility] Spironolactone (Aldactone Tab*) 50 mg PO DAILY [facility] Last Admin: 01/26/18 10:14 Dose: 50 mg Vital Signs - 8 hr 01/26/18 07:36 Temperature 97.6 F Pulse Rate 76 Respiratory 16 Rate Blood Pressure 125/75 (mmHg) O2 Sat by Pulse 100 Oximetry Oxygen Devices in Use Now: None Appearance: Elderly obese gentleman sitting up in bed in NAD. Eyes: No Scleral Icterus Ears/Nose/Mouth/Throat: Mucous Membranes Moist Neck: Trachea Midline Respiratory: Symmetrical Chest Expansion and Respiratory Effort, Clear to Auscultation Cardiovascular: RRR - Normal S1 and S2 Abdominal: - - Obese, soft, +ascites, BS+, NG, NR Extremities: - - BIlateral LE severe pitting edema Neurological: Alert and Oriented x 3, NL Muscle Strength and Tone Result Diagrams: 01/26/18 05:44 01/26/18 05:44 Assess/Plan/Problems-Billing Assessment: Mr. Weaver is a 62yo M with PMH of metastatic pancreatic CA, portal vein thrombosis, DM, diastolic CHF, CAD, HLD, HTN, asthma, GERD, who presented to ED with hypoglycemia, abdominal and back pain. - Patient Problems (1) Hypoglycemia Comment: - Persistent hypoglycemia overnight, likely a combination of his medications and pancreatic CA. - Continue to monitor glucose with no insulin converage. May start coverage if glucose >200. (2) Pancreatic cancer Comment: - Initially presented with obstructive jaundice found to have a head of the pancreas mass in 2016. ERCP with stent placement x 2. Received FOLFIRINOX with minimal decrease of disease, not enought for surgery initially. Received Xeloda and RT, but when taken to surgery had unresectable disease due to vessel involvement. - Admitted 01/02 with abdominal pain - CT at that time showed no significant change from November's CT. - Re-admitted in early January with neutropenic fever after chemotherapy and CT showed portal vein thrombosis, large volume non-loculated ascites significantly increased from December, and findings suggestive of metastatic implants and peritoneal carcinomatosis. - States he has gained >30lbs since discharge, with significant ascites and LE edema. - Case d/w Dr. Mccarthy - patient would be eligible for hospice as he's had progression of disease despite chemotherapy. - Oncology consultation requested with Dr. Gomez. - Will arrange for diagnostic/therapeutic paracentesis. - Continue pain management. (3) Portal hypertension Comment: - Secondary to portal vein thrombosis. - Will continue aldactone and change Furosemide to IV. - Monitor I/Os and daily weights. - Continue anticoagulation for Lovenox. (4) Lactic acidosis Comment: - Likely secondary to Metformin use and poor hepatic clearance. - Resolved. - D/c IVF. (5) DELORES (acute kidney injury) Comment: - On top of CKD secondary to diabetic nephropathy. - Continue to monitor. (6) Lower GI bleed Comment: - Sstill had small amount of blood when wiping. - H/H is stable. - Likely hemorrhoidal in nature. (7) DVT prophylaxis Comment: - Lovenox. (8) DNR (do not resuscitate) Status and Disposition: Inpatient.
[2018-01-26 14:12] LABS: Urine Appearance Cloudy; Urine Blood Negative (Negative); Urine Color Yellow; Urine Ketones Negative (Negative); Urine Protein Negative (Negative); Urine Specific Gravity 1.022 (1.010-1.030); Urine Urobilinogen Negative (Negative)
--- NOTE | 2018-01-26 15:37 | PN ---
Progress Note - Progress Note Date of Service: 01/26/18 SOAP: Subjective: Patient seen and examined. History reviewed He has known ascites and has been developing increasing abdominal distension. He has non-operative pancreatic cancer and paracentesis has been requested. Objective: Temp Pulse Resp BP Pulse Ox 98.1 F 78 18 124/76 97 01/26/18 15:16 01/26/18 15:16 01/26/18 15:16 01/26/18 15:16 01/26/18 15:16 PEX: Abd is soft and distended. Bowel sounds are present. There is a transverse incision in the upper abdomen without hernia. There is no tenderness. US reviewed--moderate amount of ascites. Laboratory Results - last 24 hr 01/25/18 01/25/18 01/25/18 12:22 16:15 16:15 WBC RBC Hgb 10.9 L Hct 33 L MCV MCH MCHC RDW Plt Count MPV Neut % (Auto) Lymph % (Auto) [place] % (Auto) Eos % (Auto) Baso % (Auto) Absolute Neuts (auto) Absolute Lymphs (auto) Absolute Monos (auto) Absolute Eos (auto) Absolute Basos (auto) Absolute Nucleated RBC Nucleated RBC % Sodium Potassium Chloride Carbon Dioxide Anion Gap BUN Creatinine Est GFR ( Amer) Est GFR (Non-Af Amer) BUN/Creatinine Ratio Glucose POC Glucose (mg/dL) 115 H Lactic Acid 4.2 H* Calcium Urine Color Urine Appearance Urine pH Ur Specific [place] Urine Protein Urine Ketones Urine Blood Urine Nitrate Urine Bilirubin Urine Urobilinogen Ur Leukocyte Esterase Urine Glucose 01/25/18 01/25/18 01/25/18 18:13 21:27 22:25 WBC RBC Hgb 9.5 L Hct 28 L MCV MCH MCHC RDW Plt Count MPV Neut % (Auto) Lymph % (Auto) [place] % (Auto) Eos % (Auto) Baso % (Auto) Absolute Neuts (auto) Absolute Lymphs (auto) Absolute Monos (auto) Absolute Eos (auto) Absolute Basos (auto) Absolute Nucleated RBC Nucleated RBC % Sodium Potassium Chloride Carbon Dioxide Anion Gap BUN Creatinine Est GFR ( Amer) Est GFR (Non-Af Amer) BUN/Creatinine Ratio Glucose POC Glucose (mg/dL) 121 H 75 Lactic Acid Calcium Urine Color Urine Appearance Urine pH Ur Specific [place] Urine Protein Urine Ketones Urine Blood Urine Nitrate Urine Bilirubin Urine Urobilinogen Ur Leukocyte Esterase Urine Glucose 01/25/18 01/25/18 01/26/18 22:25 22:47 00:14 WBC RBC Hgb Hct MCV MCH MCHC RDW Plt Count MPV Neut % (Auto) Lymph % (Auto) [place] % (Auto) Eos % (Auto) Baso % (Auto) Absolute Neuts (auto) Absolute Lymphs (auto) Absolute Monos (auto) Absolute Eos (auto) Absolute Basos (auto) Absolute Nucleated RBC Nucleated RBC % Sodium Potassium Chloride Carbon Dioxide Anion Gap BUN Creatinine Est GFR ( Amer) Est GFR (Non-Af Amer) BUN/Creatinine Ratio Glucose POC Glucose (mg/dL) 52 L 69 L Lactic Acid 2.6 H* Calcium Urine Color Urine Appearance Urine pH Ur Specific [place] Urine Protein Urine Ketones Urine Blood Urine Nitrate Urine Bilirubin Urine Urobilinogen Ur Leukocyte Esterase Urine Glucose 01/26/18 01/26/18 01/26/18 01:49 02:24 04:02 WBC RBC Hgb Hct MCV MCH MCHC RDW Plt Count MPV Neut % (Auto) Lymph % (Auto) [place] % (Auto) Eos % (Auto) Baso % (Auto) Absolute Neuts (auto) Absolute Lymphs (auto) Absolute Monos (auto) Absolute Eos (auto) Absolute Basos (auto) Absolute Nucleated RBC Nucleated RBC % Sodium Potassium Chloride Carbon Dioxide Anion Gap BUN Creatinine Est GFR ( Amer) Est GFR (Non-Af Amer) BUN/Creatinine Ratio Glucose POC Glucose (mg/dL) 65 L 72 Lactic Acid 2.1 H* Calcium Urine Color Urine Appearance Urine pH Ur Specific [place] Urine Protein Urine Ketones Urine Blood Urine Nitrate Urine Bilirubin Urine Urobilinogen Ur Leukocyte Esterase Urine Glucose 01/26/18 01/26/18 01/26/18 05:33 05:44 05:44 WBC 5.2 RBC 3.45 L Hgb 10.1 L Hct 29 L MCV 85 MCH 29 MCHC 35 RDW 18 H Plt Count 163 MPV 8.1 Neut % (Auto) 58.5 Lymph % (Auto) 18.5 L [place] % (Auto) 21.8 H Eos % (Auto) 0.7 Baso % (Auto) 0.5 Absolute Neuts (auto) 3.0 Absolute Lymphs (auto) 1.0 Absolute Monos (auto) 1.1 H Absolute Eos (auto) 0 Absolute Basos (auto) 0 Absolute Nucleated RBC 0 Nucleated RBC % 0 Sodium 141 Potassium 4.4 Chloride 112 H Carbon Dioxide 23 Anion Gap 6 BUN 30 H Creatinine 1.30 H Est GFR ( Amer) 71.7 Est GFR (Non-Af Amer) 55.8 BUN/Creatinine Ratio 23.1 H Glucose 46 L* POC Glucose (mg/dL) 65 L Lactic Acid Calcium 8.4 L Urine Color Urine Appearance Urine pH Ur Specific [place] Urine Protein Urine Ketones Urine Blood Urine Nitrate Urine Bilirubin Urine Urobilinogen Ur Leukocyte Esterase Urine Glucose 01/26/18 01/26/18 01/26/18 07:31 10:14 12:40 WBC RBC Hgb Hct MCV MCH MCHC RDW Plt Count MPV Neut % (Auto) Lymph % (Auto) [place] % (Auto) Eos % (Auto) Baso % (Auto) Absolute Neuts (auto) Absolute Lymphs (auto) Absolute Monos (auto) Absolute Eos (auto) Absolute Basos (auto) Absolute Nucleated RBC Nucleated RBC % Sodium Potassium Chloride Carbon Dioxide Anion Gap BUN Creatinine Est GFR ( Amer) Est GFR (Non-Af Amer) BUN/Creatinine Ratio Glucose POC Glucose (mg/dL) 142 H 138 H 121 H Lactic Acid Calcium Urine Color Urine Appearance Urine pH Ur Specific [place] Urine Protein Urine Ketones Urine Blood Urine Nitrate Urine Bilirubin Urine Urobilinogen Ur Leukocyte Esterase Urine Glucose 01/26/18 13:30 WBC RBC Hgb Hct MCV MCH MCHC RDW Plt Count MPV Neut % (Auto) Lymph % (Auto) [place] % (Auto) Eos % (Auto) Baso % (Auto) Absolute Neuts (auto) Absolute Lymphs (auto) Absolute Monos (auto) Absolute Eos (auto) Absolute Basos (auto) Absolute Nucleated RBC Nucleated RBC % Sodium Potassium Chloride Carbon Dioxide Anion Gap BUN Creatinine Est GFR ( Amer) Est GFR (Non-Af Amer) BUN/Creatinine Ratio Glucose POC Glucose (mg/dL) Lactic Acid Calcium Urine Color Yellow Urine Appearance Cloudy Urine pH 5.0 Ur Specific [place] 1.022 Urine Protein Negative Urine Ketones Negative Urine Blood Negative Urine Nitrate Negative Urine Bilirubin Negative Urine Urobilinogen Negative Ur Leukocyte Esterase Negative Urine Glucose 3+(>=500 mg/dl) A Assessment: Unresectable pancreatic cancer Portal vein thrombosis-on therapeutic Lovenox Ascites--primary service has requested a paracentesis Plan: Paracentesis today--the procedure was discussed with the patient and the risks of, but not limited to, of bleeding, infection, bowel/visceral organ injury, discomfort were all explained. He received his Lovenox this morning and we will proceed later in the day today and hold his evening dose of Lovenox. His platelet count and INR are essentially normal and literature on risks of bleeding show no increased risk of hemorrhage with paracentesis on anti- coagulation and I discussed this with him. Specimens will be sent for cytology and culture.
[2018-01-26] MEDS ORDERED: Lidocaine 1% INJ* 10 MG/ML 30 ML SDV ONE (15:49)
--- NOTE | 2018-01-26 17:18 | BRIEFOPN ---
Brief Operative Note - Surgery Procedures: Procedures OPERATIVE REPORT PRE-OP: Ascites, pancreatic cancer POST-OP: Same PROCEDURE: Paracentesis- SURGEON: MD Katerin ANESTHESIA:Local ASST:none IVF:none EBL:min SPECIMEN: 4.5 Liters of pale yellow serous fluid, non-turbid, non-purulent fluid drained. Specimens for chemistry, culture and cytology DRAIN: none WOUND CLASS: one COMPLICATIONS: none IN PACU
[2018-01-26] MEDS: ZOSYN 3.375 GM Q6H - Intermittant 30 min Infusion IVPB SCH ×2 (17:36)
[2018-01-27] MEDS: ZOSYN 3.375 GM Q6H - Intermittant 30 min Infusion IVPB SCH ×4 (00:06→08:17)
[2018-01-27] MEDS: Morphine VIAL* 4 MG/ML VIAL (1 ml vial) IV PRN ×5 (02:05→19:44)
[2018-01-27] MEDS: Ondansetron 40 MG VIAL* 2 MG/ML 20 ML VIAL IV PRN ×2 (04:29→13:31)
[2018-01-27] MEDS: Omeprazole CAP* 20 MG PO SCH (08:04)
--- NOTE | 2018-01-27 08:22 | OP ---
CC: Dr. Darron Gomez * DATE OF OPERATION: 01/26/18 - ROOM #412 DATE OF : 53 SURGEON: Quinton Conklin MD ANESTHESIA: 1% lidocaine plain. PRE-OP DIAGNOSES: Pancreatic cancer and ascites. POST-OP DIAGNOSES: Pancreatic cancer and ascites. OPERATIVE PROCEDURE: Paracentesis, with removal of 4.5 L of pale yellow, serous , non-purulent, non-turbid fluid. ESTIMATED BLOOD LOSS: Trace. COMPLICATIONS: None. SPECIMENS: Fluid for chemistries, Gram stain and culture, as well as cytology. DRAINS: None. WOUND CLASSIFICATIONS: 1. BRIEF HISTORY: Mr. Rojas Weaver is a 61-year-old gentleman with known non- resectable pancreatic cancer who has received chemotherapy over the past year. More recently, he developed abdominal distention and fluid retention as well as ascites noted on both CT scan and ultrasound. Surgery was consulted for a paracentesis by the Hospitalist and oncologic service for removal of the ascites for both therapeutic and possibly diagnostic indications. The procedure was discussed with the patient, the risks but not limited to bleeding, infection, bowel injury, sepsis, discomfort, were all explained. The patient also has a thrombosis of the portal vein and is on therapeutic Lovenox. He did receive his morning dose of therapeutic Lovenox and we are performing the procedure later in the day with plans to hold the evening dose of Lovenox to minimize risk of bleeding. It was not felt necessary to hold anticoagulation longer due the relative low risk of bleeding from the paracentesis and all of this was discussed with the patient and he gives his informed consent to proceed. DESCRIPTION OF PROCEDURE: Written informed consent was obtained and the abdomen was marked with indelible ink. The patient was placed in slightly sitting upright supine position. Time out was completed. Using the ultrasound machine, I was able to evaluate both the left and the right side of the abdomen and it appeared that there was a larger pocket of fluid mainly in the left mid and lower quadrant. This area was then prepped and draped in usual sterile fashion. Time-out verification was completed. 1% lidocaine was then used to infiltrate the area over the marked spot and I was able to pass the 21-gauge seeker needle into the abdominal cavity and withdraw some pale yellow fluid. Next, a small sarah beth was made in the skin and an 8-[place] catheter over the needle was passed through the abdominal wall with general suction on the syringe until I withdrew fluid. The needle was then removed as the catheter was passed in the abdominal cavity. I then proceeded to draw off approximately 4.5 L of a pale yellow serous fluid that was not turbid and nonpurulent. Once there was no further drainage, the catheter was then removed. Firm pressure was held for several minutes. There was no abdominal wall bleeding noted. A sterile dressing was applied. The patient tolerated the procedure well. [id number]/[facility] #: [id number] RAZIA
[2018-01-27] MEDS ORDERED: Furosemide IV* 10 MG/ML VIAL (40 MG) IV SLOW PU ONE (09:13)
--- NOTE | 2018-01-27 09:38 | PN ---
Subjective Date of Service: 01/27/18 Interval History: HOSPITALIST PROGRESS NOTE Patient seen and examined at bedside. Care reviewed and d/w Samantha Paredes RN. He feels better today. Abdominal/back pain is better controlled. Edema is going down. Family History: Unchanged from Admission Social History: Unchanged from Admission Past Medical History: Unchanged from Admission Objective Active Medications: Acetaminophen (Tylenol Tab*) 650 mg PO Q4H PRN PRN Reason: FEVER/PAIN Atorvastatin Calcium (Lipitor*) 20 mg PO DAILY [facility] Last Admin: 01/26/18 07:58 Dose: 20 mg Dextrose (D50w Syringe 50 Ml*) 12.5 gm IV PUSH .FOR FS < 60 - SS PRN PRN Reason: FS < 60 Last Admin: 01/26/18 06:32 Dose: 12.5 gm Enoxaparin Sodium (Lovenox(*)) 100 mg SUBCUT Q12H [facility] Heparin Sodium (Porcine) (Heparin Flush Port (Ivad)) 5 ml FLUSH DAILY [facility] PRN Reason: Protocol Last Admin: 01/26/18 12:59 Dose: 5 ml Metoprolol Tartrate (Lopressor Tab*) 37.5 mg PO BID [facility] Last Admin: 01/26/18 20:46 Dose: 37.5 mg Morphine Sulfate (Morphine Vial*) 2 mg IV Q4H PRN PRN Reason: PAIN - BREAKTHROUGH Last Admin: 01/27/18 06:29 Dose: 2 mg Omeprazole (Prilosec Cap*) 20 mg PO 0730 [facility] Last Admin: 01/27/18 08:04 Dose: 20 mg Ondansetron HCl (Zofran 40 Mg Vial*) 4 mg IV Q6H PRN PRN Reason: NAUSEA Last Admin: 01/27/18 04:29 Dose: 4 mg Oxycodone HCl (Roxycodone Tab*) 5 mg PO Q6H PRN PRN Reason: PAIN - BREAKTHROUGH Last Admin: 01/26/18 20:20 Dose: 5 mg Oxymorphone HCl (Opana Er (Nf)) 5 mg PO BID [facility] Last Admin: 01/26/18 20:46 Dose: 5 mg Pancrelipase (Creon (Nf)) 12,000 units PO TID WITH MEALS [facility] Spironolactone (Aldactone Tab*) 50 mg PO DAILY [facility] Last Admin: 01/26/18 10:14 Dose: 50 mg Vital Signs - 8 hr 01/27/18 01/27/18 01/27/18 02:05 02:13 03:40 Temperature 98.6 F Pulse Rate 79 Respiratory 16 16 16 Rate Blood Pressure 110/74 (mmHg) O2 Sat by Pulse 98 Oximetry 01/27/18 01/27/18 01/27/18 04:10 06:29 07:17 Temperature 98.7 F Pulse Rate 76 Respiratory 16 16 18 Rate Blood Pressure 110/68 (mmHg) O2 Sat by Pulse 98 Oximetry 01/27/18 07:25 Temperature Pulse Rate Respiratory 16 Rate Blood Pressure (mmHg) O2 Sat by Pulse Oximetry Oxygen Devices in Use Now: None Appearance: Elderly gentleman sitting up in bed in NAD. Eyes: No Scleral Icterus Ears/Nose/Mouth/Throat: Mucous Membranes Moist Neck: Trachea Midline Respiratory: Symmetrical Chest Expansion and Respiratory Effort, Clear to Auscultation Cardiovascular: RRR - Normal S1 and S2 Abdominal: - - Obese, soft, NT, BS+ Extremities: - - Bilateral moderate to severe pitting edema Neurological: Alert and Oriented x 3, NL Muscle Strength and Tone Result Diagrams: 01/26/18 05:44 01/26/18 05:44 Assess/Plan/Problems-Billing Assessment: Mr. Weaver is a 62yo M with PMH of metastatic pancreatic CA, portal vein thrombosis, DM, diastolic CHF, CAD, HLD, HTN, asthma, GERD, who presented to ED with hypoglycemia, abdominal and back pain. - Patient Problems (1) Hypoglycemia Comment: - Resolved. - Continue to monitor glucose with no insulin converage. May start coverage if glucose >200. (2) Pancreatic cancer Comment: - Initially presented with obstructive jaundice found to have a head of the pancreas mass in 2016. ERCP with stent placement x 2. Received FOLFIRINOX with minimal decrease of disease, not enought for surgery initially. Received Xeloda and RT, but when taken to surgery had unresectable disease due to vessel involvement. - Admitted 01/02 with abdominal pain - CT at that time showed no significant change from November's CT. - Re-admitted in early January with neutropenic fever after chemotherapy and CT showed portal vein thrombosis, large volume non-loculated ascites significantly increased from December, and findings suggestive of metastatic implants and peritoneal carcinomatosis. - States he has gained >30lbs since discharge, with significant ascites and LE edema. - Case d/w Dr. Mccarthy - patient would be eligible for hospice as he's had progression of disease despite chemotherapy. - Oncology consultation appreciated. - S/p paracentesis 4.5 liters - awaiting ascitic fluid results. - Continue pain management. (3) Portal hypertension Comment: - Secondary to portal vein thrombosis. - Will continue aldactone and change Furosemide to IV. - Weight down to 281lbs - continue to monitor I/Os and daily weights. - Continue anticoagulation with Lovenox. (4) Lactic acidosis Comment: - Likely secondary to Metformin use and poor hepatic clearance. - Resolved. - D/c IVF. (5) DELORES (acute kidney injury) Comment: - On top of CKD secondary to diabetic nephropathy. - Continue to monitor. (6) Lower GI bleed Comment: - Still had small amount of blood when wiping. - H/H is stable and stool for occult blood was negative. - Likely hemorrhoidal in nature. (7) DVT prophylaxis Comment: - Lovenox. (8) DNR (do not resuscitate) Status and Disposition: Inpatient.
[2018-01-27] MEDS: Enoxaparin(*) 100 MG/ML SYR SUBCUT SCH ×2 (09:49→20:58)
[2018-01-27] MEDS: Spironolactone TAB* 25 MG PO SCH (09:50)
[2018-01-27] MEDS: Oxymorphone ER (NF) 5 MG TAB PO SCH ×2 (09:50→20:58)
[2018-01-27] MEDS: Metoprolol Tartrate TAB* 25 MG PO SCH ×2 (09:50→20:58)
[2018-01-27] MEDS: Atorvastatin* 20 MG TAB PO SCH (09:51)
[2018-01-27] MEDS: PANCRELIPASE 12000 UNIT PO SCH ×3 (09:52→17:23)
[2018-01-27] MEDS ORDERED: Dextrose 50% Syringe 50 ML* 25 GM/50 ML SYRINGE IV PUSH PRN (10:14)
[2018-01-27] MEDS ORDERED: Insulin LISPRO* 1 UNITS UNIT SUBCUT ONE (10:15)
[2018-01-27] MEDS: Insulin LISPRO* 1 UNITS UNIT SUBCUT SCH ×3 (12:45→20:57)
[2018-01-27] MEDS: PROCHLORPERAZINE INJ 5 MG/ML 2 ML VIAL IV PRN (16:15)
[2018-01-27 17:29] LABS: ABS Basophils 0 10^3/ul (0-0.2); ABS Eosinophils 0 10^3/ul (0-0.6); ABS Lymphocytes 0.6 10^3/ul (1.0-4.8); ABS Monocytes 0.7 10^3/ul (0-0.8); ABS Neutrophils 2.4 10^3/ul (1.5-7.7); ABS Nucleated RBC 0 10^3/ul; Eosinophil % 0.9 % (0-6); Hematocrit 27 % (42-52); Hemoglobin 9.1 g/dl (14.0-18.0); Mean Corpuscular HGB Conc 34 g/dl (31-36); Mean Corpuscular Hemoglobin 29 pg (27-31); Mean Corpuscular Volume 86 fL (80-94); Mean Platelet Volume 8.5 um3 (7.4-10.4); Nucleated Red Blood Cells % 0.1; Platelet Count 119 10^3/ul (150-450); Red Blood Count 3.14 10^6/ul (4.00-5.40); Red Cell Distribution Width 19 % (10.5-15); White Blood Count 3.7 10^3/ul (3.5-10.8)
[2018-01-27 17:45] LABS: EGFR Non-African American 48.8 (>60)
[2018-01-28] MEDS: PROCHLORPERAZINE INJ 5 MG/ML 2 ML VIAL IV PRN ×3 (00:30→20:59)
[2018-01-28] MEDS: Morphine VIAL* 4 MG/ML VIAL (1 ml vial) IV PRN ×5 (00:31→20:59)
[2018-01-28] MEDS: oxyCODONE TAB* 5 MG TAB PO PRN (04:17)
[2018-01-28] MEDS: Melatonin 3 MG TAB PO PRN (04:19)
[2018-01-28] MEDS ORDERED: Metolazone TAB* 5 MG PO ONE (07:30)
[2018-01-28] MEDS ORDERED: Insulin GLARGINE(*) 1 UNITS UNIT SUBCUT SCH (08:00)
[2018-01-28] MEDS ORDERED: Furosemide IV* 10 MG/ML VIAL (40 MG) IV SLOW PU ONE (08:00)
[2018-01-28] MEDS: Insulin LISPRO* 1 UNITS UNIT SUBCUT SCH ×4 (08:14→21:10)
[2018-01-28] MEDS: Omeprazole CAP* 20 MG PO SCH (08:16)
[2018-01-28] MEDS: PANCRELIPASE 12000 UNIT PO SCH ×3 (08:19→17:31)
[2018-01-28] MEDS: Atorvastatin* 20 MG TAB PO SCH (08:20)
[2018-01-28] MEDS: Oxymorphone ER (NF) 5 MG TAB PO SCH ×2 (08:20→21:00)
[2018-01-28] MEDS: Enoxaparin(*) 100 MG/ML SYR SUBCUT SCH ×2 (08:24→21:11)
[2018-01-28] MEDS: Spironolactone TAB* 25 MG PO SCH (09:25)
[2018-01-28] MEDS: ceFAZolin 1 GM VIAL(*) 1 GM in NS 0.9% 50 ML* 50 ML IVPB SCH ×2 (09:25→17:24)
[2018-01-28] MEDS: Metoprolol Tartrate TAB* 25 MG PO SCH ×2 (09:25→21:00)
--- NOTE | 2018-01-28 12:51 | PN ---
Subjective Date of Service: 01/28/18 Interval History: HOSPITALIST PROGRESS NOTE Patient seen and examined at bedside. Care reviewed and d/w Doreen Watkins RN. He feels a little better today, abdominal pain is down to a 3. Hit his right leg on his hospital bed and has developed RLE erythema on top of his signifcant edema. Family History: Unchanged from Admission Social History: Unchanged from Admission Past Medical History: Unchanged from Admission Objective Active Medications: Acetaminophen (Tylenol Tab*) 650 mg PO Q4H PRN PRN Reason: FEVER/PAIN Atorvastatin Calcium (Lipitor*) 20 mg PO DAILY [facility] Last Admin: 01/28/18 08:20 Dose: 20 mg Dextrose (D50w Syringe 50 Ml*) 12.5 gm IV PUSH .FOR FS < 60 - SS PRN PRN Reason: FS < 60 Last Admin: 01/26/18 06:32 Dose: 12.5 gm Dextrose (D50w Syringe 50 Ml*) 12.5 gm IV PUSH .FOR FS < 60 - SS PRN PRN Reason: FS < 60 Enoxaparin Sodium (Lovenox(*)) 100 mg SUBCUT Q12H [facility] Last Admin: 01/28/18 08:24 Dose: 100 mg Heparin Sodium (Porcine) (Heparin Flush Port (Ivad)) 5 ml FLUSH DAILY [facility] PRN Reason: Protocol Last Admin: 01/28/18 12:40 Dose: 5 ml Cefazolin Sodium 1 gm/ Sodium (Chloride) 50 mls @ 200 mls/hr IVPB Q8H [facility] Last Admin: 01/28/18 09:25 Dose: 200 mls/hr Insulin Glargine (Lantus(*)) 10 units SUBCUT Q24H [facility] Last Admin: 01/28/18 08:15 Dose: 10 units Insulin Human Lispro (Humalog*) 0 units SUBCUT ACHS [facility] PRN Reason: Protocol Last Admin: 01/28/18 08:14 Dose: 5 units Melatonin (Melatonin) 3 mg PO BEDTIME PRN; Protocol PRN Reason: Sleep Last Admin: 01/28/18 04:19 Dose: 3 mg Metoprolol Tartrate (Lopressor Tab*) 37.5 mg PO BID [facility] Last Admin: 01/28/18 09:25 Dose: 37.5 mg Morphine Sulfate (Morphine Vial*) 2 mg IV Q4H PRN PRN Reason: PAIN - BREAKTHROUGH Last Admin: 01/28/18 12:39 Dose: 2 mg Omeprazole (Prilosec Cap*) 20 mg PO 0730 [facility] Last Admin: 01/28/18 08:16 Dose: 20 mg Ondansetron HCl (Zofran 40 Mg Vial*) 4 mg IV Q6H PRN PRN Reason: NAUSEA Last Admin: 01/27/18 13:31 Dose: 4 mg Oxycodone HCl (Roxycodone Tab*) 5 mg PO Q6H PRN PRN Reason: PAIN - BREAKTHROUGH Last Admin: 01/28/18 04:17 Dose: 5 mg Oxymorphone HCl (Opana Er (Nf)) 5 mg PO BID [facility] Last Admin: 01/28/18 08:20 Dose: 5 mg Pancrelipase (Creon (Nf)) 12,000 units PO TID WITH MEALS [facility] Last Admin: 01/28/18 12:39 Dose: 12,000 units Prochlorperazine Edisylate (Compazine Inj*) 5 mg IV Q6H PRN PRN Reason: NAUSEA/VOMITING Last Admin: 01/28/18 12:38 Dose: 5 mg Spironolactone (Aldactone Tab*) 50 mg PO DAILY [facility] Last Admin: 01/28/18 09:25 Dose: 50 mg Vital Signs - 8 hr 01/28/18 01/28/18 01/28/18 07:37 07:50 08:20 Temperature 98.6 F Pulse Rate 80 Respiratory 17 16 17 Rate Blood Pressure 112/73 (mmHg) O2 Sat by Pulse 96 Oximetry Oxygen Devices in Use Now: None Appearance: Pleasant elderly gentleman sitting up in bed in [facility]. Eyes: No Scleral Icterus Ears/Nose/Mouth/Throat: Mucous Membranes Moist Neck: Trachea Midline Respiratory: Symmetrical Chest Expansion and Respiratory Effort, Clear to Auscultation Cardiovascular: RRR - Normal S1 and S2 Abdominal: NL Sounds; No Tenderness; No Distention - obese Extremities: - - Bilateral LE moderate pitting edema, with RLE erythema Neurological: Alert and Oriented x 3, NL Muscle Strength and Tone Result Diagrams: 01/27/18 17:20 01/27/18 17:20 Assess/Plan/Problems-Billing Assessment: Mr. Weaver is a 62yo M with PMH of metastatic pancreatic CA, portal vein thrombosis, DM, diastolic CHF, CAD, HLD, HTN, asthma, GERD, who presented to ED with hypoglycemia, abdominal and back pain. - Patient Problems (1) Diabetes Comment: - Hypoglycemia resolved. - Start low dose Lantus and continue Lispro SS. (2) Pancreatic cancer Comment: - Initially presented with obstructive jaundice found to have a head of the pancreas mass in 2016. ERCP with stent placement x 2. Received FOLFIRINOX with minimal decrease of disease, not enought for surgery initially. Received Xeloda and RT, but when taken to surgery had unresectable disease due to vessel involvement. - Admitted 01/02 with abdominal pain - CT at that time showed no significant change from November's CT. - Re-admitted in early January with neutropenic fever after chemotherapy and CT showed portal vein thrombosis, large volume non-loculated ascites significantly increased from December, and findings suggestive of metastatic implants and peritoneal carcinomatosis. - States he has gained >30lbs since discharge, with significant ascites and LE edema. - Case d/w Dr. Mccarthy - patient would be eligible for hospice as he's had progression of disease despite chemotherapy. - Oncology consultation appreciated. - S/p paracentesis 4.5 liters - awaiting ascitic fluid results. - CA19-19 up to 6800 (highest it's been). - Continue pain management. (3) Portal hypertension Comment: - Secondary to portal vein thrombosis. - Will continue aldactone and change Furosemide to IV. - Weight up to 283lbs - continue to monitor I/Os and daily weights, start fluid restriction 1.5 liters/day. - Continue anticoagulation with Lovenox. (4) Cellulitis Comment: - Cellulitis likely streptococcal - start Cefazolin. (5) Lactic acidosis Comment: - Likely secondary to Metformin use and poor hepatic clearance. - Resolved. (6) DELORES (acute kidney injury) Comment: - On top of CKD secondary to diabetic nephropathy. - Continue to monitor. (7) Lower GI bleed Comment: - Still had small amount of blood when wiping. - H/H is stable and stool for occult blood was negative. - Likely hemorrhoidal in nature. (8) DVT prophylaxis Comment: - Lovenox. (9) DNR (do not resuscitate) Status and Disposition: Inpatient.
[2018-01-29] MEDS: oxyCODONE TAB* 5 MG TAB PO PRN ×2 (00:15→23:26)
[2018-01-29] MEDS: ceFAZolin 1 GM VIAL(*) 1 GM in NS 0.9% 50 ML* 50 ML IVPB SCH ×3 (01:05→16:52)
[2018-01-29] MEDS: Morphine VIAL* 4 MG/ML VIAL (1 ml vial) IV PRN ×5 (01:06→20:24)
[2018-01-29 06:05] LABS: Hematocrit 27 % (42-52); Hemoglobin 9.2 g/dl (14.0-18.0)
[2018-01-29] MEDS: PROCHLORPERAZINE INJ 5 MG/ML 2 ML VIAL IV PRN ×2 (06:37→17:11)
[2018-01-29] MEDS ORDERED: Metolazone TAB* 5 MG PO ONE (07:30)
[2018-01-29] MEDS: Omeprazole CAP* 20 MG PO SCH (07:44)
[2018-01-29] MEDS: PANCRELIPASE 12000 UNIT PO SCH ×3 (07:44→16:52)
[2018-01-29] MEDS: Atorvastatin* 20 MG TAB PO SCH (07:44)
[2018-01-29] MEDS: Enoxaparin(*) 100 MG/ML SYR SUBCUT SCH ×2 (07:46→20:05)
[2018-01-29] MEDS ORDERED: Furosemide IV* 10 MG/ML VIAL (40 MG) IV SLOW PU ONE (08:00)
[2018-01-29 08:04] LABS: EGFR Non-African American 50.4 (>60)
[2018-01-29] MEDS: Insulin LISPRO* 1 UNITS UNIT SUBCUT SCH ×5 (09:26→20:21)
[2018-01-29] MEDS: Insulin GLARGINE(*) 1 UNITS UNIT SUBCUT SCH (09:27)
[2018-01-29] MEDS: Oxymorphone ER (NF) 5 MG TAB PO SCH ×2 (09:28→20:25)
[2018-01-29] MEDS: Spironolactone TAB* 25 MG PO SCH (09:28)
[2018-01-29] MEDS: Metoprolol Tartrate TAB* 25 MG PO SCH ×2 (09:52→19:33)
--- NOTE | 2018-01-29 10:41 | PN ---
Progress Note - Progress Note Date of Service: 01/29/18 SOAP: Subjective: []Better today. Tolerating insulin. He does not like fluid restriction. Had BRBPR before admission and again today. Sugars are better. He is not in pain. No SOB, does feel weaker with anemia. After last discharge home for 3 days before readmission and had been feeling well for those 3 days. Has not seen primary oncologist since last admission, was scheduled for this week. Objective: [] Vital Signs Temp Pulse Resp BP Pulse Ox 98.1 F 88 16 102/68 98 01/29/18 07:18 01/29/18 08:19 01/29/18 09:28 01/29/18 08:19 01/29/18 07:18 HEENT - Pale, no oral lesions, no JVD or LAD CTA RRR S1S2 +fluid, non tender, bruising on flanks. Rectal - hemorrhoids, bleeding. Assessment: 62yo M with metastatic pancreatic CA, portal vein thrombosis. Caner progressive on FOLFIRINOX. Now on second admission for medical complications, hypoglycemia and rectal bleeding. I suspect some fall of in renal function since last admission effecting the metformin and lovenox. Today sugars better, contiues to have bleeding. PmHx w/ DM, diastolic CHF, CAD, HLD, HTN, asthma, GERD. 1. Hypoglycemia. Improved on oral insulin. 2. Rectal bleeding. Rectal varices. - Will improved with fluid balance. - Check Lovenox level today and adjust does accordingly. 3. Pancreatic Cancer. Still question of if additional therapy will be indicated. Will plan follow up with Dr. Marie as outpatient. Would not rule out possible chemotherapy at this time but if additional complications arise will become difficult. 4. Portal hyertension. Agree with aldactone and Furosemide as IV. He does not life the fluid restriction. Agree with paracentesis. 5. Cefazolin for cellulitis, did not evaluate today. 6. Anemia. Check Iron, IV iron if deplete.
[2018-01-29 12:30] LABS: Hematocrit 25 % (42-52); Hemoglobin 8.4 g/dl (14.0-18.0)
[2018-01-29] MEDS ORDERED: Insulin LISPRO* 1 UNITS UNIT SUBCUT ONE (12:53)
[2018-01-29] MEDS ORDERED: Dextrose 50% Syringe 50 ML* 25 GM/50 ML SYRINGE IV PUSH PRN (12:55)
--- NOTE | 2018-01-29 13:34 | PN ---
Subjective Date of Service: 01/29/18 Interval History: HOSPITALIST PROGRESS NOTE Patient seen and examined at bedside. Care reviewed and d/w Doreen Watkins RN. He had more episodes of BRBPR today, described as moderate amount as per RN. He denies abdominal pain. States he cannot tolerate fluid restriction because his mouth gets very dry. Family History: Unchanged from Admission Social History: Unchanged from Admission Past Medical History: Unchanged from Admission Objective Active Medications: Acetaminophen (Tylenol Tab*) 650 mg PO Q4H PRN PRN Reason: FEVER/PAIN Atorvastatin Calcium (Lipitor*) 20 mg PO DAILY [facility] Last Admin: 01/29/18 07:44 Dose: 20 mg Dextrose (D50w Syringe 50 Ml*) 12.5 gm IV PUSH .FOR FS < 60 - SS PRN PRN Reason: FS < 60 Last Admin: 01/26/18 06:32 Dose: 12.5 gm Dextrose (D50w Syringe 50 Ml*) 12.5 gm IV PUSH .FOR FS < 60 - SS PRN PRN Reason: FS < 60 Dextrose (D50w Syringe 50 Ml*) 12.5 gm IV PUSH .FOR FS < 60 - SS PRN PRN Reason: FS < 60 Enoxaparin Sodium (Lovenox(*)) 100 mg SUBCUT Q12H [facility] Last Admin: 01/29/18 07:46 Dose: 100 mg Heparin Sodium (Porcine) (Heparin Flush Port (Ivad)) 5 ml FLUSH DAILY [facility] PRN Reason: Protocol Last Admin: 01/29/18 12:12 Dose: 5 ml Cefazolin Sodium 1 gm/ Sodium (Chloride) 50 mls @ 200 mls/hr IVPB Q8H [facility] Last Admin: 01/29/18 09:26 Dose: 200 mls/hr Insulin Glargine (Lantus(*)) 15 units SUBCUT Q24H [facility] Last Admin: 01/29/18 09:27 Dose: 15 units Insulin Human Lispro (Humalog*) 0 units SUBCUT ACHS [facility] PRN Reason: Protocol Last Admin: 01/29/18 13:08 Dose: Not Given Insulin Human Lispro (Humalog*) 0 units SUBCUT AC [facility] PRN Reason: Protocol Melatonin (Melatonin) 3 mg PO BEDTIME PRN; Protocol PRN Reason: Sleep Last Admin: 01/28/18 04:19 Dose: 3 mg Metoprolol Tartrate (Lopressor Tab*) 37.5 mg PO BID [facility] Last Admin: 01/29/18 09:52 Dose: 37.5 mg Morphine Sulfate (Morphine Vial*) 2 mg IV Q4H PRN PRN Reason: PAIN - BREAKTHROUGH Last Admin: 01/29/18 09:27 Dose: 2 mg Omeprazole (Prilosec Cap*) 20 mg PO 0730 [facility] Last Admin: 01/29/18 07:44 Dose: 20 mg Ondansetron HCl (Zofran 40 Mg Vial*) 4 mg IV Q6H PRN PRN Reason: NAUSEA Last Admin: 01/27/18 13:31 Dose: 4 mg Oxycodone HCl (Roxycodone Tab*) 5 mg PO Q6H PRN PRN Reason: PAIN - BREAKTHROUGH Last Admin: 01/29/18 00:15 Dose: 5 mg Oxymorphone HCl (Opana Er (Nf)) 5 mg PO BID [facility] Last Admin: 01/29/18 09:28 Dose: 5 mg Pancrelipase (Creon (Nf)) 12,000 units PO TID WITH MEALS [facility] Last Admin: 01/29/18 12:12 Dose: 12,000 units Prochlorperazine Edisylate (Compazine Inj*) 5 mg IV Q6H PRN PRN Reason: NAUSEA/VOMITING Last Admin: 01/29/18 06:37 Dose: 5 mg Spironolactone (Aldactone Tab*) 50 mg PO DAILY [facility] Last Admin: 01/29/18 09:28 Dose: 50 mg Vital Signs - 8 hr 01/29/18 01/29/18 01/29/18 07:12 07:18 08:00 Temperature 98.1 F Pulse Rate 105 Respiratory 16 18 18 Rate Blood Pressure 97/69 (mmHg) O2 Sat by Pulse 98 Oximetry 01/29/18 01/29/18 01/29/18 10:29 11:00 11:04 Temperature 98.4 F Pulse Rate 97 Respiratory 16 17 18 Rate Blood Pressure 103/78 (mmHg) O2 Sat by Pulse 98 Oximetry Oxygen Devices in Use Now: None Appearance: Pleasant gentleman lying in bed in [facility]. Eyes: No Scleral Icterus Ears/Nose/Mouth/Throat: Mucous Membranes Moist Neck: Trachea Midline Respiratory: Symmetrical Chest Expansion and Respiratory Effort, Clear to Auscultation Cardiovascular: RRR - Normal S1 and S2 Abdominal: NL Sounds; No Tenderness; No Distention - obese Extremities: - - Bilateral LE pitting edema, RLE erythema is improved Neurological: Alert and Oriented x 3, NL Muscle Strength and Tone Result Diagrams: 01/29/18 12:15 01/29/18 07:30 Assess/Plan/Problems-Billing Assessment: Mr. Weaver is a 62yo M with PMH of metastatic pancreatic CA, portal vein thrombosis, DM, diastolic CHF, CAD, HLD, HTN, asthma, GERD, who presented to ED with hypoglycemia, abdominal and back pain. - Patient Problems (1) Diabetes Comment: - Hypoglycemia resolved and now hyperglycemic. - Increase Lantus and continue Lispro SS. Will also cover carbs as I suspect he' s eating many. (2) Pancreatic cancer Comment: - Initially presented with obstructive jaundice found to have a head of the pancreas mass in 2015. ERCP with stent placement x 2. Received FOLFIRINOX with minimal decrease of disease, not enought for surgery initially. Received Xeloda and RT, but when taken to surgery had unresectable disease due to vessel involvement. - Admitted 01/02 with abdominal pain - CT at that time showed no significant change from November's CT. - Re-admitted in early January with neutropenic fever after chemotherapy and CT showed portal vein thrombosis, large volume non-loculated ascites significantly increased from December, and findings suggestive of metastatic implants and peritoneal carcinomatosis. - States he has gained >30lbs since discharge, with significant ascites and LE edema. - Case d/w Dr. Mccarthy - patient would be eligible for hospice as he's had progression of disease despite chemotherapy. - Oncology consultation appreciated. - S/p paracentesis 4.5 liters - awaiting ascitic fluid results. - CA19-19 up to 6800 (highest it's been). - Continue pain management. - Oncology f/u appreciated - may still be a candidate for palliative chemo. (3) Portal hypertension Comment: - Secondary to portal vein thrombosis. - Will continue aldactone and IV Furosemide. - Weight down to 281lbs - continue to monitor I/Os and daily weights. - Cannot tolerate fluid restriction. - Continue anticoagulation with Lovenox - Oncology input appreciated - will check anti Xa activity and adjust dose. (4) Lower GI bleed Comment: - Surya BRBPR today. - Stool for occult blood was negative. - Suspect secondary to rectal varices/hemorrhoids associated with his portal HTN. - Hb down to 8.4 - will continue to monitor and transfuse if Hb<8.0 (has h/o CAD ). (5) Cellulitis Comment: - Cellulitis likely streptococcal - continue Cefazolin #2. (6) Lactic acidosis Comment: - Likely secondary to Metformin use and poor hepatic clearance. - Resolved. (7) DELORES (acute kidney injury) Comment: - On top of CKD secondary to diabetic nephropathy. - Continue to monitor. (8) DVT prophylaxis Comment: - Lovenox. (9) DNR (do not resuscitate) Status and Disposition: Inpatient.
[2018-01-29 20:02] LABS: Hematocrit 26 % (42-52); Hemoglobin 8.7 g/dl (14.0-18.0)
[2018-01-29] MEDS: Melatonin 3 MG TAB PO PRN (23:28)
[2018-01-30] MEDS: ceFAZolin 1 GM VIAL(*) 1 GM in NS 0.9% 50 ML* 50 ML IVPB SCH ×3 (01:03→18:42)
[2018-01-30] MEDS: Morphine VIAL* 4 MG/ML VIAL (1 ml vial) IV PRN ×7 (01:03→22:54)
[2018-01-30] MEDS: PROCHLORPERAZINE INJ 5 MG/ML 2 ML VIAL IV PRN (02:42)
[2018-01-30 06:24] LABS: Hematocrit 25 % (42-52); Hemoglobin 8.6 g/dl (14.0-18.0); Mean Corpuscular HGB Conc 34 g/dl (31-36); Mean Corpuscular Hemoglobin 30 pg (27-31); Mean Corpuscular Volume 87 fL (80-94); Mean Platelet Volume 8.7 um3 (7.4-10.4); Platelet Count 120 10^3/ul (150-450); Red Blood Count 2.88 10^6/ul (4.00-5.40); Red Cell Distribution Width 21 % (10.5-15); White Blood Count 5.6 10^3/ul (3.5-10.8)
[2018-01-30 06:40] LABS: EGFR Non-African American 43.6 (>60)
[2018-01-30 06:48] LABS: Monocytes % 24 % (0-7)
[2018-01-30] MEDS: Enoxaparin(*) 100 MG/ML SYR SUBCUT SCH (07:44)
[2018-01-30] MEDS: Oxymorphone ER (NF) 5 MG TAB PO SCH ×2 (08:32→20:41)
[2018-01-30] MEDS: oxyCODONE TAB* 5 MG TAB PO PRN (08:32)
[2018-01-30] MEDS: Omeprazole CAP* 20 MG PO SCH (08:33)
[2018-01-30] MEDS: Atorvastatin* 20 MG TAB PO SCH (08:33)
[2018-01-30] MEDS: Spironolactone TAB* 25 MG PO SCH (08:33)
[2018-01-30] MEDS: Metoprolol Tartrate TAB* 25 MG PO SCH ×2 (08:33→20:40)
[2018-01-30] MEDS: Insulin LISPRO* 1 UNITS UNIT SUBCUT SCH ×7 (08:35→21:13)
[2018-01-30] MEDS: Insulin GLARGINE(*) 1 UNITS UNIT SUBCUT SCH (08:35)
[2018-01-30] MEDS: PANCRELIPASE 12000 UNIT PO SCH ×3 (08:35→18:15)
--- NOTE | 2018-01-30 09:12 | CONS ---
CONSULTATION REPORT: DATE OF CONSULT: 01/29/18 REQUESTING PHYSICIAN: Dr. Navarro. INDICATION: Bright red blood per rectum. NARRATIVE: Mr. Weaver is a pleasant 62-year-old male with a history of diabetes , congestive heart failure, hyperlipidemia, asthma, GERD, hypertension, coronary artery disease, pancreatic cancer with portal vein thrombosis, who was admitted to the hospital on 01/25/18 with abdominal pain, blood in the stool, and chills. The patient unfortunately is not a surgical candidate for his pancreatic cancer. He is undergoing chemotherapy. GI was consulted for rectal bleeding. He has been having bright red blood over the past few days. He states that he does not really have to push or strain to have bowel movements. His bowel habits have not changed at all. He denies feeling weak or dizzy. He does have some mild generalized discomfort; however, this is resolved today. He denies any abdominal pain today. He told me that he had not had any rectal bleeding today; however, his hospitalist and nurse both say that he had bloody bowel movements this morning. He was evaluated by Dr. Hinojosa from Oncology, who did perform a rectal exam and noted hemorrhoids that were bleeding. The patient did not want me to perform rectal exam as Dr. Hinojosa had just done one in the past few hours. The patient also tells me that he has had 2 colonoscopies; 1 was 5 years ago, 1 was 10 years ago. He states that they had both been normal. PAST MEDICAL HISTORY: Please see the HPI. PAST SURGICAL HISTORY: Cardiac stent, knee surgery, laminectomy. MEDICATIONS: At home, include: 1. Aspirin. 2. Lovenox. 3. Lasix. 4. Lispro. 5. Metoprolol. 6. Omeprazole. 7. Opana. 8. Pancrelipase. 9. Simvastatin. 10. Spironolactone. 11. Metformin. 12. Levemir. ALLERGIES: To CELEBREX, LYRICA, and QUININE. FAMILY HISTORY: Diabetes, coronary artery disease. No colorectal cancer in the family. SOCIAL HISTORY: He quit smoking many years ago. He used to drink heavily. REVIEW OF SYSTEMS: Twelve systems were reviewed in the HPI, otherwise unremarkable. PHYSICAL EXAM: Temperature is 98.4, blood pressure is 103/78, pulse of 97, respiratory rate of 18, 98% on room air. Mild, chronically ill-appearing male, in no apparent distress. Alert, oriented, pleasant, fluent. HEENT: Mucous membranes are moist without lesions, ulcers, or exudate. Neck is supple. Trachea is midline. Head is normocephalic, atraumatic. Heart: Regular rate and rhythm. No murmur, rubs, or gallops. Lungs: Clear to auscultation bilaterally. No wheezes, rales, or rhonchi. Abdomen is distended, soft, obese. No rebound, no guarding. Dull flanks. Skin is warm and dry. Neuro: No asterixis. Again, the patient deferred his rectal exam by me today as he had already had one in the past few hours. LABORATORY DATA: Hemoglobin is 8.4 down from 9.2. INR is 1.59. BUN of 32, creatinine of 1.42. ASSESSMENT AND PLAN: A pleasant 62-year-old gentleman, who suspected to have bright red blood per rectum from hemorrhoids. I did discuss this with them. Concern is that he does need to be on Lovenox for his portal vein thrombosis; this is being held. We do need to see how big the hemorrhoids are, whether or not we can restart the Lovenox or not. We would like to perform a flexible sigmoidoscopy for further evaluation. I will make arrangements for it later on tomorrow afternoon. [id number]/[facility] #: [id number] MTDD
--- NOTE | 2018-01-30 13:45 | PN ---
Subjective Date of Service: 01/30/18 Interval History: HOSPITALIST PROGRESS NOTE Patient seen and examined at bedside. He offers no new complaints at this time. Abdominal pain is unchanged, LE edema as well. Had 2 BMs with no blood today. Family History: Unchanged from Admission Social History: Unchanged from Admission Past Medical History: Unchanged from Admission Objective Active Medications: Acetaminophen (Tylenol Tab*) 650 mg PO Q4H PRN PRN Reason: FEVER/PAIN Atorvastatin Calcium (Lipitor*) 20 mg PO DAILY [facility] Last Admin: 01/30/18 08:33 Dose: 20 mg Baclofen (Lioresal Tab*) 20 mg PO TID PRN PRN Reason: hiccups Dextrose (D50w Syringe 50 Ml*) 12.5 gm IV PUSH .FOR FS < 60 - SS PRN PRN Reason: FS < 60 Last Admin: 01/26/18 06:32 Dose: 12.5 gm Dextrose (D50w Syringe 50 Ml*) 12.5 gm IV PUSH .FOR FS < 60 - SS PRN PRN Reason: FS < 60 Dextrose (D50w Syringe 50 Ml*) 12.5 gm IV PUSH .FOR FS < 60 - SS PRN PRN Reason: FS < 60 Heparin Sodium (Porcine) (Heparin Flush Port (Ivad)) 5 ml FLUSH DAILY [facility] PRN Reason: Protocol Last Admin: 01/30/18 09:18 Dose: 5 ml Cefazolin Sodium 1 gm/ Sodium (Chloride) 50 mls @ 200 mls/hr IVPB Q8H [facility] Last Admin: 01/30/18 08:31 Dose: 200 mls/hr Insulin Glargine (Lantus(*)) 15 units SUBCUT Q24H [facility] Last Admin: 01/30/18 08:35 Dose: 15 units Insulin Human Lispro (Humalog*) 0 units SUBCUT ACHS [facility] PRN Reason: Protocol Last Admin: 01/30/18 12:55 Dose: 8 units Insulin Human Lispro (Humalog*) 0 units SUBCUT AC [facility] PRN Reason: Protocol Last Admin: 01/30/18 11:53 Dose: Not Given Melatonin (Melatonin) 3 mg PO BEDTIME PRN; Protocol PRN Reason: Sleep Last Admin: 01/29/18 23:28 Dose: 3 mg Metoprolol Tartrate (Lopressor Tab*) 37.5 mg PO BID [facility] Last Admin: 01/30/18 08:33 Dose: 37.5 mg Morphine Sulfate (Morphine Vial*) 2 mg IV Q2HR PRN PRN Reason: PAIN - BREAKTHROUGH Last Admin: 01/30/18 12:55 Dose: 2 mg Omeprazole (Prilosec Cap*) 20 mg PO 0730 [facility] Last Admin: 01/30/18 08:33 Dose: 20 mg Ondansetron HCl (Zofran 40 Mg Vial*) 4 mg IV Q6H PRN PRN Reason: NAUSEA Last Admin: 01/27/18 13:31 Dose: 4 mg Oxycodone HCl (Roxycodone Tab*) 5 mg PO Q6H PRN PRN Reason: PAIN - BREAKTHROUGH Last Admin: 01/30/18 08:32 Dose: 5 mg Oxymorphone HCl (Opana Er (Nf)) 5 mg PO BID [facility] Last Admin: 01/30/18 08:32 Dose: 5 mg Pancrelipase (Creon (Nf)) 12,000 units PO TID WITH MEALS [facility] Last Admin: 01/30/18 13:09 Dose: 12,000 units Prochlorperazine Edisylate (Compazine Inj*) 5 mg IV Q6H PRN PRN Reason: NAUSEA/VOMITING Last Admin: 01/30/18 02:42 Dose: 5 mg Spironolactone (Aldactone Tab*) 50 mg PO DAILY [facility] Last Admin: 01/30/18 08:33 Dose: 50 mg Vital Signs - 8 hr 01/30/18 01/30/18 01/30/18 08:04 08:32 09:56 Temperature 98.0 F Pulse Rate 104 Respiratory 19 18 17 Rate Blood Pressure 114/74 (mmHg) O2 Sat by Pulse 99 Oximetry Oxygen Devices in Use Now: None Appearance: Pleasant gentleman lying in bed in [facility]. Eyes: No Scleral Icterus Ears/Nose/Mouth/Throat: Mucous Membranes Moist Neck: Trachea Midline Respiratory: Symmetrical Chest Expansion and Respiratory Effort, Clear to Auscultation Cardiovascular: RRR - Normal S1 and S2 Abdominal: - - Obese, soft, NT, BS+ Extremities: - - Bilateral LE pitting edema, RLE erythema is much improved Neurological: Alert and Oriented x 3, NL Muscle Strength and Tone Result Diagrams: 01/30/18 06:00 01/30/18 06:00 Assess/Plan/Problems-Billing Assessment: Mr. Weaver is a 62yo M with PMH of metastatic pancreatic CA, portal vein thrombosis, DM, diastolic CHF, CAD, HLD, HTN, asthma, GERD, who presented to ED with hypoglycemia, abdominal and back pain. - Patient Problems (1) Diabetes Comment: - Hypoglycemia resolved and now hyperglycemic. - Increase Lantus and continue Lispro SS. Will also cover carbs as I suspect he' s eating many. (2) Pancreatic cancer Comment: - Initially presented with obstructive jaundice found to have a head of the pancreas mass in 2016. ERCP with stent placement x 2. Received FOLFIRINOX with minimal decrease of disease, not enought for surgery initially. Received Xeloda and RT, but when taken to surgery had unresectable disease due to vessel involvement. - Admitted 01/02 with abdominal pain - CT at that time showed no significant change from November's CT. - Re-admitted in early January with neutropenic fever after chemotherapy and CT showed portal vein thrombosis, large volume non-loculated ascites significantly increased from December, and findings suggestive of metastatic implants and peritoneal carcinomatosis. - States he has gained >30lbs since discharge, with significant ascites and LE edema. - Case d/w Dr. Mccarthy - patient would be eligible for hospice as he's had progression of disease despite chemotherapy. - Oncology consultation appreciated. - S/p paracentesis 4.5 liters - awaiting ascitic fluid results. - CA19-19 up to 6800 (highest it's been). - Continue pain management. - Oncology f/u appreciated - may still be a candidate for palliative chemo. (3) Portal hypertension Comment: - Secondary to portal vein thrombosis. - Will continue aldactone and IV Furosemide. - Weight down to 281lbs - continue to monitor I/Os and daily weights. - Cannot tolerate fluid restriction. - Hold anticoagulation with Lovenox due to GI bleed - Oncology input appreciated - will check anti Xa activity and adjust dose. (4) Lower GI bleed Comment: - Suspect secondary to rectal varices/hemorrhoids associated with his portal HTN. - Will continue to monitor and transfuse if Hb<8.0 (has h/o CAD). - Plan for flex sigmoidoscopy today. (5) Cellulitis Comment: - Cellulitis likely streptococcal - continue Cefazolin #3. (6) Lactic acidosis Comment: - Likely secondary to Metformin use and poor hepatic clearance. - Resolved. (7) DELORES (acute kidney injury) Comment: - On top of CKD secondary to diabetic nephropathy. - Continue to monitor. (8) DVT prophylaxis Comment: - Off Lovenox due to GI bleed. - SCDs as tolerated. (9) DNR (do not resuscitate) Status and Disposition: Inpatient.
[2018-01-30] MEDS ORDERED: Insulin GLARGINE(*) 1 UNITS UNIT SUBCUT ONE (13:46)
[2018-01-30] MEDS ORDERED: fentaNYL* 50 MCG/ML 2 ML VIAL (100 MCG VIAL) ONE (15:35)
[2018-01-30] MEDS ORDERED: Midazolam* 1 MG/ML 10 ML VIAL (10 MG) ONE (15:35)
[2018-01-30] MEDS: Melatonin 3 MG TAB PO PRN (22:55)
[2018-01-31] MEDS: PROCHLORPERAZINE INJ 5 MG/ML 2 ML VIAL IV PRN (00:04)
--- NOTE | 2018-01-31 00:53 | PN ---
Progress Note - Progress Note Date of Service: 01/31/18 Note: Patient states he only takes metoprolol in the morning. Changed tartrate BID to succinate 25 mg QD.
[2018-01-31] MEDS: Baclofen TAB* 20 MG PO PRN (01:17)
[2018-01-31] MEDS: Morphine VIAL* 4 MG/ML VIAL (1 ml vial) IV PRN ×5 (01:19→19:39)
[2018-01-31] MEDS: ceFAZolin 1 GM VIAL(*) 1 GM in NS 0.9% 50 ML* 50 ML IVPB SCH ×2 (01:25→09:05)
[2018-01-31] MEDS: Ondansetron 40 MG VIAL* 2 MG/ML 20 ML VIAL IV PRN (05:25)
[2018-01-31 05:55] LABS: Hematocrit 25 % (42-52); Hemoglobin 8.5 g/dl (14.0-18.0); Mean Corpuscular HGB Conc 34 g/dl (31-36); Mean Corpuscular Hemoglobin 30 pg (27-31); Mean Corpuscular Volume 87 fL (80-94); Mean Platelet Volume 8.7 um3 (7.4-10.4); Platelet Count 124 10^3/ul (150-450); Red Blood Count 2.86 10^6/ul (4.00-5.40); Red Cell Distribution Width 22 % (10.5-15)
[2018-01-31 06:13] LABS: EGFR Non-African American 43.6 (>60)
[2018-01-31 06:14] LABS: ABS Basophils 0 10^3/ul (0-0.2); ABS Eosinophils 0.1 10^3/ul (0-0.6); ABS Lymphocytes 0.8 10^3/ul (1.0-4.8); ABS Monocytes 1.3 10^3/ul (0-0.8); ABS Neutrophils 3.8 10^3/ul (1.5-7.7); ABS Nucleated RBC 0 10^3/ul
[2018-01-31 06:18] LABS: Monocytes % 18 % (0-7)
[2018-01-31] MEDS ORDERED: Metolazone TAB* 5 MG PO ONE ×2 (07:30→17:32)
[2018-01-31] MEDS ORDERED: Furosemide IV* 10 MG/ML 2 ML VIAL (20 MG) IV SLOW PU ONE (08:00)
[2018-01-31] MEDS: Omeprazole CAP* 20 MG PO SCH (08:15)
[2018-01-31] MEDS: Insulin LISPRO* 1 UNITS UNIT SUBCUT SCH ×7 (08:56→21:15)
[2018-01-31] MEDS: Insulin GLARGINE(*) 1 UNITS UNIT SUBCUT SCH (08:59)
[2018-01-31] MEDS ORDERED: Insulin GLARGINE(*) 1 UNITS UNIT SUBCUT SCH (09:00)
[2018-01-31] MEDS: PANCRELIPASE 12000 UNIT PO SCH ×3 (09:02→17:39)
[2018-01-31] MEDS: Oxymorphone ER (NF) 5 MG TAB PO SCH ×2 (09:02→21:14)
[2018-01-31] MEDS: Spironolactone TAB* 25 MG PO SCH (09:04)
[2018-01-31] MEDS: Metoprolol Succinate XL TAB* 25 MG PO SCH ×3 (10:08→13:29)
--- NOTE | 2018-01-31 10:35 | PN ---
Progress Note - Progress Note Date of Service: 01/31/18 SOAP: Subjective: [62 yo male with metastatic pancreatic CA followed by outside oncology who has had multiple hospitalizations after 2 cycles of FOLFIRINOX. He underwent flex sigmoidoscopy which did not demonstrate a source of bleeding. He notes no BRB with last couple of BMs. He has chronic abdominal pain, not worse than usual and controlled with oral analegesics. He underwent therapeutic paracentesis earlier in hospitalization, yielded just 4.5L and unfortunately continues to gain weight despite diuretics.] Objective: [ Acetaminophen (Tylenol Tab*) 650 mg PO Q4H PRN PRN Reason: FEVER/PAIN Atorvastatin Calcium (Lipitor*) 20 mg PO 2100 [facility] Baclofen (Lioresal Tab*) 20 mg PO TID PRN PRN Reason: hiccups Last Admin: 01/31/18 01:17 Dose: 20 mg Dextrose (D50w Syringe 50 Ml*) 12.5 gm IV PUSH .FOR FS < 60 - SS PRN PRN Reason: FS < 60 Last Admin: 01/26/18 06:32 Dose: 12.5 gm Dextrose (D50w Syringe 50 Ml*) 12.5 gm IV PUSH .FOR FS < 60 - SS PRN PRN Reason: FS < 60 Dextrose (D50w Syringe 50 Ml*) 12.5 gm IV PUSH .FOR FS < 60 - SS PRN PRN Reason: FS < 60 Enoxaparin Sodium (Lovenox(*)) 80 mg SUBCUT Q12H [facility] Heparin Sodium (Porcine) (Heparin Flush Port (Ivad)) 5 ml FLUSH DAILY [facility] PRN Reason: Protocol Last Admin: 01/30/18 09:18 Dose: 5 ml Cefazolin Sodium 1 gm/ Sodium (Chloride) 50 mls @ 200 mls/hr IVPB Q8H [facility] Last Admin: 01/31/18 09:05 Dose: 200 mls/hr Insulin Glargine (Lantus(*)) 25 units SUBCUT Q24H [facility] Last Admin: 01/31/18 08:59 Dose: 25 units Insulin Human Lispro (Humalog*) 0 units SUBCUT ACHS [facility] PRN Reason: Protocol Last Admin: 01/31/18 08:56 Dose: 6 units Insulin Human Lispro (Humalog*) 0 units SUBCUT AC [facility] PRN Reason: Protocol Last Admin: 01/31/18 08:58 Dose: 1 units Melatonin (Melatonin) 3 mg PO BEDTIME PRN; Protocol PRN Reason: Sleep Last Admin: 01/30/18 22:55 Dose: 3 mg Metoprolol Succinate (Toprol Xl Tab*) 25 mg PO DAILY [facility] Last Admin: 01/31/18 10:08 Dose: Not Given Morphine Sulfate (Morphine Vial*) 2 mg IV Q2HR PRN PRN Reason: PAIN - BREAKTHROUGH Last Admin: 01/31/18 06:06 Dose: 2 mg Omeprazole (Prilosec Cap*) 20 mg PO 0730 [facility] Last Admin: 01/31/18 08:15 Dose: 20 mg Ondansetron HCl (Zofran 40 Mg Vial*) 4 mg IV Q6H PRN PRN Reason: NAUSEA Last Admin: 01/31/18 05:25 Dose: 4 mg Oxycodone HCl (Roxycodone Tab*) 5 mg PO Q6H PRN PRN Reason: PAIN - BREAKTHROUGH Last Admin: 01/30/18 08:32 Dose: 5 mg Oxymorphone HCl (Opana Er (Nf)) 5 mg PO BID [facility] Last Admin: 01/31/18 09:02 Dose: 5 mg Pancrelipase (Creon (Nf)) 12,000 units PO TID WITH MEALS [facility] Last Admin: 01/31/18 09:02 Dose: 12,000 units Prochlorperazine Edisylate (Compazine Inj*) 5 mg IV Q6H PRN PRN Reason: NAUSEA/VOMITING Last Admin: 01/31/18 00:04 Dose: 5 mg Spironolactone (Aldactone Tab*) 50 mg PO DAILY [facility] Last Admin: 01/31/18 09:04 Dose: 50 mg Laboratory Results - last 24 hr 01/29/18 01/30/18 01/30/18 10:57 11:18 17:57 WBC RBC Hgb Hct MCV MCH MCHC RDW Plt Count MPV Neut % (Auto) Lymph % (Auto) [place] % (Auto) Eos % (Auto) Baso % (Auto) Absolute Neuts (auto) Absolute Lymphs (auto) Absolute Monos (auto) Absolute Eos (auto) Absolute Basos (auto) Absolute Nucleated RBC Immature Gran % Neutrophils % Lymphocytes % Monocytes % Eosinophils % Basophils % Metamyelocytes % Myelocytes % Promyelocytes % Nucleated RBC % Abs Neuts (Manual) Abs Lymphs (Manual) Abs Monocytes (Manual) Absolute Eos (Manual) Abs Basophils (Manual) Nucleated RBCs/100 WBC Normal RBC Morphology Polychromasia Anisocytosis Heparin Anti-Xa Activ 1.22 Sodium Potassium Chloride Carbon Dioxide Anion Gap BUN Creatinine Est GFR ( Amer) Est GFR (Non-Af Amer) BUN/Creatinine Ratio Glucose POC Glucose (mg/dL) 307 H 238 H Calcium 01/30/18 01/31/18 01/31/18 20:27 05:30 05:30 WBC 6.0 RBC 2.86 L Hgb 8.5 L Hct 25 L MCV 87 MCH 30 MCHC 34 RDW 22 H Plt Count 124 L MPV 8.7 Neut % (Auto) Not Reportable Lymph % (Auto) Not Reportable [place] % (Auto) Not Reportable Eos % (Auto) Not Reportable Baso % (Auto) Not Reportable Absolute Neuts (auto) 3.8 Absolute Lymphs (auto) 0.8 L Absolute Monos (auto) 1.3 H Absolute Eos (auto) 0.1 Absolute Basos (auto) 0 Absolute Nucleated RBC 0 Immature Gran % 5 Neutrophils % 60 Lymphocytes % 13 L Monocytes % 18 H Eosinophils % 2 Basophils % 2 Metamyelocytes % 2 Myelocytes % 2 H Promyelocytes % 1 Nucleated RBC % Not Reportable Abs Neuts (Manual) 3.6 Abs Lymphs (Manual) 0.8 L Abs Monocytes (Manual) 1.1 H Absolute Eos (Manual) 0.1 Abs Basophils (Manual) 0.1 Nucleated RBCs/100 WBC 1 H Normal RBC Morphology Not Reportable Polychromasia 1+ Anisocytosis 2+ Heparin Anti-Xa Activ Sodium 131 L Potassium 4.8 Chloride 103 Carbon Dioxide 21 L Anion Gap 7 BUN 37 H Creatinine 1.61 H Est GFR ( Amer) 56.0 Est GFR (Non-Af Amer) 43.6 BUN/Creatinine Ratio 23.0 H Glucose 260 H POC Glucose (mg/dL) 279 H Calcium 8.1 L 01/31/18 07:34 WBC RBC Hgb Hct MCV MCH MCHC RDW Plt Count MPV Neut % (Auto) Lymph % (Auto) [place] % (Auto) Eos % (Auto) Baso % (Auto) Absolute Neuts (auto) Absolute Lymphs (auto) Absolute Monos (auto) Absolute Eos (auto) Absolute Basos (auto) Absolute Nucleated RBC Immature Gran % Neutrophils % Lymphocytes % Monocytes % Eosinophils % Basophils % Metamyelocytes % Myelocytes % Promyelocytes % Nucleated RBC % Abs Neuts (Manual) Abs Lymphs (Manual) Abs Monocytes (Manual) Absolute Eos (Manual) Abs Basophils (Manual) Nucleated RBCs/100 WBC Normal RBC Morphology Polychromasia Anisocytosis Heparin Anti-Xa Activ Sodium Potassium Chloride Carbon Dioxide Anion Gap BUN Creatinine Est GFR ( Amer) Est GFR (Non-Af Amer) BUN/Creatinine Ratio Glucose POC Glucose (mg/dL) 297 H Calcium Vital Signs: Temp Pulse Resp BP Pulse Ox 97.6 F 82 12 95/70 97 01/31/18 07:23 01/31/18 07:23 01/31/18 09:02 01/31/18 07:52 01/31/18 07:23 Exam: Gen: 62 yo male who appears slightly older than stated age in NAD HEENT: poor dentition, MMM CV: RRR, no m/r/g Resp: CTA, no w/c/r Abd: soft, distended, positive fluid wave, non TTP Ext: 2+ LE edema bilaterally Skin: No rashes] Assessment: [62 yo male with metastatic pancreatic CA followed by outside oncologist who has been hospitalized on multiple occasions with 2 cycles of FOLFIRINOX. He is now hospitalized with evidence of lower GI bleed, hypoglycemia and worsening ascites. Lovenox had been held for lower GI bleed, which now appears to have resolved without obvious source of bleeding identified on sigmoidoscopy. Anti- factor Xa level was elevated at 1.2, but drawn at 3.5 hours after last dose, rather than the recommended 4-6 hours, so this may not be perfectly accurate. Recommend resuming Lovenox now repeat antifactor Xa after 5 doses] Plan: [1. Lower GI bleed - resolved - resume Lovenox 2. Portal vein thrombosis - resume Lovenox at 80 mg bid (prior dose 100 mg bid) - repeat anti-factor Xa level after 5 doses of Lovenox, should be drawn 4-6 hours after 5th dose 3. Metastatic pancreatic CA with ascites - continues to gain weight despite diuretics - abdomen is still soft and not terribly uncomfortable, so likely does not require a repeat paracentesis at this time, but would recommend continuing to titrate up diuretics - patient would like to transfer care to Dr Marie, will schedule office follow up following discharge 4. Diabetes - initially hypoglycemic and now hyperglycemic - insulin titration per hospitalist group Dispo: discharge planning per hospitalist group, will arrange outpatient oncology follow up]
[2018-01-31] MEDS: Enoxaparin(*) 80 MG/0.8 ML SYR SUBCUT SCH ×2 (10:44→21:16)
--- NOTE | 2018-01-31 13:24 | PRO ---
DATE: 01/30/18 - ROOM #[id number] REFERRING PHYSICIAN: Kvng Yanez; Samantha Marie* PROCEDURE: Flexible sigmoidoscopy to 50 cm after a single enema prep and a day of clear liquids. INDICATION: This 62-year-old man was passing fresh blood a couple of days ago. It seemed quite red and fresh and his hemoglobin fell from 10.9 initially in the ER to 8.6 over 4 to 5 days. His platelets initially were 168 though 2 weeks ago had been as low as 34. He says his bowel movements are typically easy to pass and they "just fall out." He has not needed to use enemas. He did receive after a day of clear liquids a tap water enema today. He had had colonoscopies 5 and 10 years ago in the [facility] system, reportedly negative. ENDOSCOPIST: Dr. Rob. MEDICATIONS: He chose to go unsedated. FINDINGS: He is a chronically appearing pale man in no overt distress. His abdomen has markings from a recent paracentesis of 4 L. There is no abdominal tenderness. There is an upper midline well healed scar from December 2016. Perianal inspection is unremarkable with a symmetric anal pucker. Digital rectal is normal with normal tone and palpable abnormality. There is just a little bit of dark bloody secretion on the finger. Initial views show dark thin bloody secretions adherent to the distal rectum at about 3 to 5 cm in. Above that the rectal mucosa is smooth and normal with no blood seen. The scope advances easily through the rectosigmoid and into the distal sigmoid and then to the proximal sigmoid. A few small diverticula are seen. There is no blood, but just normal opaque secretions above the level of the rectum. There was no clearly no blood coming from above. Coming back down to the distal rectum where the adherent bloody secretions were, extensive lavage was used. The lavage suctioning continued for many minutes. Rectal retroflexion was employed to get a different orientation with this. No intrinsic mucosal lesion could be identified. There was no obvious erosion or ulcer or polyp or AVM. There was no active bleeding. Gently superficially recurring lavage was used. With retroflexion it could be seen that there was no particular hemorrhoidal bulge at the dentate line. With certain phase of the relaxation some small hemorrhoids were seen, but again there was no bleeding at that specific site and no stigmata. They did not appear impressive. They were a couple of cm distal to the area of the adherent bloody secretions. Further lavage was used. The views were repeated with a gastroscope to try to get further close inspection and there was nothing new. IMPRESSION: 1. Minimal sigmoid diverticulosis. 2. Small internal hemorrhoids at the verge and in the canal - not bleeding. 3. Adherent bloody secretions distal rectum, cause unclear. All one can formulate is that in a circumstance with the combination of thrombocytopenia, Lovenox and low-dose aspirin a situation occurs that should be avoided. Resuming diet and considering warfarin is recommended. [id number]/CPS #: [id number] MTDD
--- NOTE | 2018-01-31 13:44 | PN ---
Subjective Date of Service: 01/31/18 Interval History: HOSPITALIST PROGRESS NOTE Patient seen and examined at bedside. Care reviewed and d/w Jackelin Melendez RN. He's sound asleep at this time. No further episodes of BRBPR reported. Gained 5lbs over the past 24h. Family History: Unchanged from Admission Social History: Unchanged from Admission Past Medical History: Unchanged from Admission Objective Active Medications: Acetaminophen (Tylenol Tab*) 650 mg PO Q4H PRN PRN Reason: FEVER/PAIN Atorvastatin Calcium (Lipitor*) 20 mg PO 2100 [facility] Baclofen (Lioresal Tab*) 20 mg PO TID PRN PRN Reason: hiccups Last Admin: 01/31/18 01:17 Dose: 20 mg Dextrose (D50w Syringe 50 Ml*) 12.5 gm IV PUSH .FOR FS < 60 - SS PRN PRN Reason: FS < 60 Last Admin: 01/26/18 06:32 Dose: 12.5 gm Dextrose (D50w Syringe 50 Ml*) 12.5 gm IV PUSH .FOR FS < 60 - SS PRN PRN Reason: FS < 60 Dextrose (D50w Syringe 50 Ml*) 12.5 gm IV PUSH .FOR FS < 60 - SS PRN PRN Reason: FS < 60 Enoxaparin Sodium (Lovenox(*)) 80 mg SUBCUT Q12H [facility] Last Admin: 01/31/18 10:44 Dose: 80 mg Heparin Sodium (Porcine) (Heparin Flush Port (Ivad)) 5 ml FLUSH DAILY [facility] PRN Reason: Protocol Last Admin: 01/31/18 10:47 Dose: 5 ml Cefazolin Sodium 1 gm/ Sodium (Chloride) 50 mls @ 200 mls/hr IVPB Q8H [facility] Last Admin: 01/31/18 09:05 Dose: 200 mls/hr Insulin Glargine (Lantus(*)) 25 units SUBCUT Q24H [facility] Last Admin: 01/31/18 08:59 Dose: 25 units Insulin Human Lispro (Humalog*) 0 units SUBCUT ACHS [facility] PRN Reason: Protocol Last Admin: 01/31/18 13:19 Dose: 6 units Insulin Human Lispro (Humalog*) 0 units SUBCUT AC [facility] PRN Reason: Protocol Last Admin: 01/31/18 13:21 Dose: 7 units Melatonin (Melatonin) 3 mg PO BEDTIME PRN; Protocol PRN Reason: Sleep Last Admin: 01/30/18 22:55 Dose: 3 mg Metoprolol Succinate (Toprol Xl Tab*) 25 mg PO DAILY [facility] Last Admin: 01/31/18 13:29 Dose: 25 mg Morphine Sulfate (Morphine Vial*) 2 mg IV Q2HR PRN PRN Reason: PAIN - BREAKTHROUGH Last Admin: 01/31/18 13:22 Dose: 2 mg Omeprazole (Prilosec Cap*) 20 mg PO 0730 [facility] Last Admin: 01/31/18 08:15 Dose: 20 mg Ondansetron HCl (Zofran 40 Mg Vial*) 4 mg IV Q6H PRN PRN Reason: NAUSEA Last Admin: 01/31/18 05:25 Dose: 4 mg Oxycodone HCl (Roxycodone Tab*) 5 mg PO Q6H PRN PRN Reason: PAIN - BREAKTHROUGH Last Admin: 01/30/18 08:32 Dose: 5 mg Oxymorphone HCl (Opana Er (Nf)) 5 mg PO BID [facility] Last Admin: 01/31/18 09:02 Dose: 5 mg Pancrelipase (Creon (Nf)) 12,000 units PO TID WITH MEALS [facility] Last Admin: 01/31/18 13:17 Dose: 12,000 units Prochlorperazine Edisylate (Compazine Inj*) 5 mg IV Q6H PRN PRN Reason: NAUSEA/VOMITING Last Admin: 01/31/18 00:04 Dose: 5 mg Spironolactone (Aldactone Tab*) 50 mg PO DAILY [facility] Last Admin: 01/31/18 09:04 Dose: 50 mg Vital Signs - 8 hr 01/31/18 01/31/18 01/31/18 06:06 07:23 07:43 Temperature 97.6 F Pulse Rate 82 Respiratory 18 18 16 Rate Blood Pressure 91/44 (mmHg) O2 Sat by Pulse 97 Oximetry 01/31/18 01/31/18 11:24 13:22 Temperature 98.1 F Pulse Rate 82 Respiratory 20 14 Rate Blood Pressure 102/72 (mmHg) O2 Sat by Pulse 100 Oximetry Oxygen Devices in Use Now: None Appearance: Elderly gentleman lying in bed sleeping comfortably. Eyes: No Scleral Icterus Ears/Nose/Mouth/Throat: Mucous Membranes Moist Neck: Trachea Midline Respiratory: Symmetrical Chest Expansion and Respiratory Effort, Clear to Auscultation Cardiovascular: RRR - Normal S1 and S2 Neurological: - - Sleeping Result Diagrams: 01/31/18 05:30 01/31/18 05:30 Assess/Plan/Problems-Billing Assessment: Mr. Weaver is a 62yo M with PMH of metastatic pancreatic CA, portal vein thrombosis, DM, diastolic CHF, CAD, HLD, HTN, asthma, GERD, who presented to ED with hypoglycemia, abdominal and back pain. - Patient Problems (1) Diabetes Comment: - Hypoglycemia resolved and now hyperglycemic. - Increase Lantus and continue Lispro SS. (2) Pancreatic cancer Comment: - Initially presented with obstructive jaundice found to have a head of the pancreas mass in 2016. ERCP with stent placement x 2. Received FOLFIRINOX with minimal decrease of disease, not enought for surgery initially. Received Xeloda and RT, but when taken to surgery had unresectable disease due to vessel involvement. - Admitted 01/02 with abdominal pain - CT at that time showed no significant change from s CT. - Re-admitted in early January with neutropenic fever after chemotherapy and CT showed portal vein thrombosis, large volume non-loculated ascites significantly increased from December, and findings suggestive of metastatic implants and peritoneal carcinomatosis. - States he has gained >30lbs since discharge, with significant ascites and LE edema. - S/p paracentesis 4.5 liters - ascitic fluid results suggest transudate with low protein and LDH, normal glucose, only 2 neutrophils, and cytology negative for malignancy. - CA19-19 up to 6800 (highest it's been). - Continue pain management. - Oncology f/u appreciated - may still be a candidate for palliative chemo and plans to f/u with Dr. Marie as outpatient. (3) Portal hypertension Comment: - Secondary to portal vein thrombosis. - Weight up to 290lbs today. - Continue Metolazone PO/Furosemide IV, as well as aldactone - lengthy conversation with patient about need for fluid restriction, but he states he cannot tolerate it. Will need more aggressive diuresis. - Continue to monitor I/Os and daily weights. - Anti Xa activity was 1.2 - d/w Oncology - will reduce Lovenox dose to 80mg q12h and repeat Anti Xa after 5 doses (4-6h after 5th dose). (4) Lower GI bleed Comment: - Flex sigmoidoscopy did not show a definitive source of bleeding. - Will continue to monitor and transfuse if Hb<8.0 (has h/o CAD). - GI input appreciated and d/w Onc - will adjust Lovenox dose as described above. (5) Cellulitis Comment: - Cellulitis likely streptococcal - d/c Cefazolin and start Cephalexin. (6) Lactic acidosis Comment: - Likely secondary to Metformin use and poor hepatic clearance. - Resolved. (7) DELORES (acute kidney injury) Comment: - On top of CKD secondary to diabetic nephropathy. - Continue to monitor - creatinine slowly trending up with diuresis. (8) DVT prophylaxis Comment: - Lovenox. (9) DNR (do not resuscitate) Status and Disposition: Inpatient.
[2018-01-31] MEDS ORDERED: Metolazone TAB* 5 MG ONE (17:34)
[2018-01-31] MEDS: Cephalexin CAP* 500 MG PO SCH ×2 (17:39→21:15)
[2018-01-31] MEDS ORDERED: Furosemide IV* 10 MG/ML 10 ML VIAL (100 MG) IV ONE (18:00)
[2018-01-31] MEDS: Atorvastatin* 20 MG TAB PO SCH (21:15)
[2018-02-01] MEDS: Morphine VIAL* 4 MG/ML VIAL (1 ml vial) IV PRN ×4 (00:13→20:53)
[2018-02-01] MEDS: oxyCODONE TAB* 5 MG TAB PO PRN ×2 (01:33→08:52)
[2018-02-01] MEDS: PROCHLORPERAZINE INJ 5 MG/ML 2 ML VIAL IV PRN (04:25)
[2018-02-01 06:26] LABS: Hematocrit 25 % (42-52); Hemoglobin 8.5 g/dl (14.0-18.0); Mean Corpuscular HGB Conc 34 g/dl (31-36); Mean Corpuscular Hemoglobin 30 pg (27-31); Mean Corpuscular Volume 88 fL (80-94); Mean Platelet Volume 9.2 um3 (7.4-10.4); Platelet Count 117 10^3/ul (150-450); Red Blood Count 2.86 10^6/ul (4.00-5.40); Red Cell Distribution Width 22 % (10.5-15); White Blood Count 5.6 10^3/ul (3.5-10.8)
[2018-02-01] MEDS ORDERED: Furosemide IV* 10 MG/ML VIAL (40 MG) IV SLOW PU ONE (07:40)
[2018-02-01] MEDS ORDERED: Metolazone TAB* 5 MG PO ONE (07:40)
[2018-02-01] MEDS: Omeprazole CAP* 20 MG PO SCH (08:09)
[2018-02-01 08:21] LABS: ABS Basophils 0 10^3/ul (0-0.2); ABS Eosinophils 0 10^3/ul (0-0.6); ABS Lymphocytes 0.6 10^3/ul (1.0-4.8); ABS Monocytes 1.2 10^3/ul (0-0.8); ABS Neutrophils 3.7 10^3/ul (1.5-7.7); ABS Nucleated RBC 0 10^3/ul; Nucleated Red Blood Cells % 0.2
[2018-02-01] MEDS: Cephalexin CAP* 500 MG PO SCH ×4 (08:50→20:52)
[2018-02-01] MEDS: Metoprolol Succinate XL TAB* 25 MG PO SCH (08:50)
[2018-02-01] MEDS: Spironolactone TAB* 25 MG PO SCH (08:50)
[2018-02-01] MEDS: Insulin LISPRO* 1 UNITS UNIT SUBCUT SCH ×7 (08:51→20:51)
[2018-02-01] MEDS: Insulin GLARGINE(*) 1 UNITS UNIT SUBCUT SCH (08:51)
[2018-02-01] MEDS: Oxymorphone ER (NF) 5 MG TAB PO SCH ×2 (08:52→20:52)
[2018-02-01] MEDS: PANCRELIPASE 12000 UNIT PO SCH ×3 (08:55→18:11)
[2018-02-01 09:29] LABS: Monocytes % 14 % (0-7)
--- NOTE | 2018-02-01 10:25 | PN ---
Progress Note - Progress Note Date of Service: 02/01/18 SOAP: Subjective: []No more bleeding. Primary complaint is fluid gain. Keeps gaining fluid and diuretics are not helping. Urinating plenty but keeps gaining weight. Abdominal pain controlled. No fevers or chills. Acetaminophen (Tylenol Tab*) 650 mg PO Q4H PRN PRN Reason: FEVER/PAIN Atorvastatin Calcium (Lipitor*) 20 mg PO 2100 [facility] Last Admin: 01/31/18 21:15 Dose: 20 mg Baclofen (Lioresal Tab*) 20 mg PO TID PRN PRN Reason: hiccups Last Admin: 01/31/18 01:17 Dose: 20 mg Cephalexin HCl (Keflex Cap*) 500 mg PO QID [facility] Last Admin: 02/01/18 08:50 Dose: 500 mg Dextrose (D50w Syringe 50 Ml*) 12.5 gm IV PUSH .FOR FS < 60 - SS PRN PRN Reason: FS < 60 Enoxaparin Sodium (Lovenox(*)) 80 mg SUBCUT Q12H [facility] Last Admin: 01/31/18 21:16 Dose: 80 mg Heparin Sodium (Porcine) (Heparin Flush Port (Ivad)) 5 ml FLUSH DAILY [facility]; Protocol Last Admin: 02/01/18 08:55 Dose: 5 ml Insulin Glargine (Lantus(*)) 25 units SUBCUT Q24H [facility] Last Admin: 02/01/18 08:51 Dose: 25 units Insulin Human Lispro (Humalog*) 0 units SUBCUT ACHS [facility]; Protocol Last Admin: 02/01/18 08:52 Dose: 6 units Insulin Human Lispro (Humalog*) 0 units SUBCUT AC [facility]; Protocol Last Admin: 02/01/18 08:51 Dose: 3 units Melatonin (Melatonin) 3 mg PO BEDTIME PRN; Protocol PRN Reason: Sleep Last Admin: 01/30/18 22:55 Dose: 3 mg Metoprolol Succinate (Toprol Xl Tab*) 25 mg PO DAILY [facility] Last Admin: 02/01/18 08:50 Dose: 25 mg Morphine Sulfate (Morphine Vial*) 2 mg IV Q2HR PRN PRN Reason: PAIN - BREAKTHROUGH Last Admin: 02/01/18 03:52 Dose: 2 mg Omeprazole (Prilosec Cap*) 20 mg PO 0730 [facility] Last Admin: 02/01/18 08:09 Dose: 20 mg Ondansetron HCl (Zofran 40 Mg Vial*) 4 mg IV Q6H PRN PRN Reason: NAUSEA Last Admin: 01/31/18 05:25 Dose: 4 mg Oxycodone HCl (Roxycodone Tab*) 5 mg PO Q6H PRN PRN Reason: PAIN - BREAKTHROUGH Last Admin: 02/01/18 08:52 Dose: 5 mg Oxymorphone HCl (Opana Er (Nf)) 5 mg PO BID [facility] Last Admin: 02/01/18 08:52 Dose: 5 mg Pancrelipase (Creon (Nf)) 12,000 units PO TID WITH MEALS [facility] Last Admin: 02/01/18 08:55 Dose: 12,000 units Prochlorperazine Edisylate (Compazine Inj*) 5 mg IV Q6H PRN PRN Reason: NAUSEA/VOMITING Last Admin: 02/01/18 04:25 Dose: 5 mg Spironolactone (Aldactone Tab*) 50 mg PO DAILY [facility] Last Admin: 02/01/18 08:50 Dose: 50 mg Objective: Vital Signs Temp Pulse Resp BP Pulse Ox 98.4 F 92 17 110/65 96 02/01/18 07:10 02/01/18 07:10 02/01/18 08:52 02/01/18 07:10 02/01/18 07:10 Gen: 62 yo male who appears slightly older than stated age in NAD HEENT: poor dentition, MMM, pale CV: RRR, no m/r/g Resp: CTA, no w/c/r Abd: soft, distended, positive fluid wave, non TTP Ext: 2+ LE edema bilaterall Assessment: [62 yo male with metastatic pancreatic CA, 2 cycles of FOLFIRINOX. Multiple hospitalizations, now with evidence of lower GI bleed, hypoglycemia and worsening ascites. Lovenox had been held for lower GI bleed, which now appears to have resolved without obvious source of bleeding identified on sigmoidoscopy. Anti-factor Xa level was elevated at 1.2, but drawn at 3.5 hours bid dose. Plan: [1. Lower GI bleed - resolved - Continued increase in Cr, to Lovenox 80 mg sq daily for reduced CrCL - repeat anti-factor Xa level after 5 doses of Lovenox, should be drawn 4-6 hours after 5th dose 3. Ascites. Increased Cr and gaining weight despite diuretics and is his primary complaint: - Will start Albumin drip, 50 gm bolus followed by 3 gm per hr - Lasix 40 mg IV BID - Check urine Na and K, if Na > K adjust dose. - Follow daily weight, vitals. 4. Diabetes - initially hypoglycemic and now hyperglycemic - insulin titration per hospitalist group 5. Pancreatic Cancer. Will follow with Dr. Marie as outpatient.
[2018-02-01] MEDS ORDERED: Albumin Human 25%* 25 GM/100 ML BTL IV ONE (11:00)
[2018-02-01] MEDS: Enoxaparin(*) 80 MG/0.8 ML SYR SUBCUT SCH ×2 (11:06→11:51)
[2018-02-01] MEDS ORDERED: Albumin Human 25%* 12.5 GM/50 ML BTL IV SCH (12:00)
[2018-02-01] MEDS ORDERED: Insulin GLARGINE(*) 1 UNITS UNIT SUBCUT ONE (12:08)
[2018-02-01] MEDS: Albumin Human 25%* 12.5 GM/50 ML BTL IV SCH ×2 (13:05→18:20)
--- NOTE | 2018-02-01 14:29 | PN ---
Subjective Date of Service: 02/01/18 Interval History: HOSPITALIST PROGRESS NOTE Patient seen and examined at bedside. Care reviewed and d/w Kina Mejia RN. He feels better, only complaint is his swelling continues to get worse despite progressively increasing doses of diuretics. Plain is controlled, no further episodes of BRBPR. RLE erythema is much improved. Family History: Unchanged from Admission Social History: Unchanged from Admission Past Medical History: Unchanged from Admission Objective Active Medications: Acetaminophen (Tylenol Tab*) 650 mg PO Q4H PRN PRN Reason: FEVER/PAIN Atorvastatin Calcium (Lipitor*) 20 mg PO 2100 [facility] Last Admin: 01/31/18 21:15 Dose: 20 mg Baclofen (Lioresal Tab*) 20 mg PO TID PRN PRN Reason: hiccups Last Admin: 01/31/18 01:17 Dose: 20 mg Cephalexin HCl (Keflex Cap*) 500 mg PO QID [facility] Last Admin: 02/01/18 13:03 Dose: 500 mg Dextrose (D50w Syringe 50 Ml*) 12.5 gm IV PUSH .FOR FS < 60 - SS PRN PRN Reason: FS < 60 Enoxaparin Sodium (Lovenox(*)) 80 mg SUBCUT Q24H [facility] Last Admin: 02/01/18 11:51 Dose: 80 mg Furosemide (Lasix Iv*) 60 mg IV 0800,1700 [facility] Heparin Sodium (Porcine) (Heparin Flush Port (Ivad)) 5 ml FLUSH DAILY [facility]; Protocol Last Admin: 02/01/18 08:55 Dose: 5 ml Albumin Human (Albumin Human 25%*) 12.5 gm in 50 mls @ 12 mls/hr IV Q4H [facility] Last Admin: 02/01/18 13:05 Dose: 12 mls/hr Insulin Glargine (Lantus(*)) 30 units SUBCUT Q24H [facility] Insulin Human Lispro (Humalog*) 0 units SUBCUT ACHS [facility]; Protocol Last Admin: 02/01/18 13:04 Dose: 8 units Insulin Human Lispro (Humalog*) 0 units SUBCUT AC [facility]; Protocol Last Admin: 02/01/18 13:04 Dose: 6 units Melatonin (Melatonin) 3 mg PO BEDTIME PRN; Protocol PRN Reason: Sleep Last Admin: 01/30/18 22:55 Dose: 3 mg Metoprolol Succinate (Toprol Xl Tab*) 25 mg PO DAILY [facility] Last Admin: 02/01/18 08:50 Dose: 25 mg Morphine Sulfate (Morphine Vial*) 2 mg IV Q2HR PRN PRN Reason: PAIN - BREAKTHROUGH Last Admin: 02/01/18 03:52 Dose: 2 mg Omeprazole (Prilosec Cap*) 20 mg PO 0730 [facility] Last Admin: 02/01/18 08:09 Dose: 20 mg Ondansetron HCl (Zofran 40 Mg Vial*) 4 mg IV Q6H PRN PRN Reason: NAUSEA Last Admin: 01/31/18 05:25 Dose: 4 mg Oxycodone HCl (Roxycodone Tab*) 5 mg PO Q6H PRN PRN Reason: PAIN Oxymorphone HCl (Opana Er (Nf)) 5 mg PO BID [facility] Last Admin: 02/01/18 08:52 Dose: 5 mg Pancrelipase (Creon (Nf)) 12,000 units PO TID WITH MEALS [facility] Last Admin: 02/01/18 12:10 Dose: 12,000 units Prochlorperazine Edisylate (Compazine Inj*) 5 mg IV Q6H PRN PRN Reason: NAUSEA/VOMITING Last Admin: 02/01/18 04:25 Dose: 5 mg Spironolactone (Aldactone Tab*) 50 mg PO DAILY [facility] Last Admin: 02/01/18 08:50 Dose: 50 mg Vital Signs - 8 hr 02/01/18 02/01/18 02/01/18 07:10 08:00 08:52 Temperature 98.4 F Pulse Rate 92 Respiratory 13 18 17 Rate Blood Pressure 110/65 (mmHg) O2 Sat by Pulse 96 Oximetry 02/01/18 02/01/18 10:50 12:02 Temperature 97.9 F Pulse Rate 97 Respiratory 17 Rate Blood Pressure 124/77 (mmHg) O2 Sat by Pulse 100 Oximetry Oxygen Devices in Use Now: None Appearance: Pleasant gentleman lying in bed in [facility]. Eyes: No Scleral Icterus Ears/Nose/Mouth/Throat: Mucous Membranes Moist Neck: Trachea Midline Respiratory: Symmetrical Chest Expansion and Respiratory Effort, - - BS+ bilaterally diminished, no added sounds Cardiovascular: RRR - Normal S1 and S2 Abdominal: - - Obese, NT, distended, ascites present, BS+ Extremities: - - Moderate to severe bilateral LE pitting edema, RLE erythema is much improved Neurological: Alert and Oriented x 3, NL Muscle Strength and Tone Result Diagrams: 02/01/18 05:45 02/01/18 05:45 Assess/Plan/Problems-Billing Assessment: Mr. Weaver is a 62yo M with PMH of metastatic pancreatic CA, portal vein thrombosis, DM, diastolic CHF, CAD, HLD, HTN, asthma, GERD, who presented to ED with hypoglycemia, abdominal and back pain. - Patient Problems (1) Diabetes Comment: - Hypoglycemia resolved and now hyperglycemic. - Increase Lantus to 30 units and continue Lispro SS. - Not on metformin due to worsening renal function. (2) Pancreatic cancer Comment: - Initially presented with obstructive jaundice found to have a head of the pancreas mass in 2016. ERCP with stent placement x 2. Received FOLFIRINOX with minimal decrease of disease, not enought for surgery initially. Received Xeloda and RT, but when taken to surgery had unresectable disease due to vessel involvement. - Admitted 01/02 with abdominal pain - CT at that time showed no significant change from s CT. - Re-admitted in early January with neutropenic fever after chemotherapy and CT showed portal vein thrombosis, large volume non-loculated ascites significantly increased from December, and findings suggestive of metastatic implants and peritoneal carcinomatosis. - States he has gained >30lbs since discharge, with significant ascites and LE edema. - S/p paracentesis 4.5 liters - ascitic fluid results suggest transudate with low protein and LDH, normal glucose, only 2 neutrophils, and cytology negative for malignancy. - CA19-19 up to 6800 (highest it's been). - Continue pain management. - Oncology f/u appreciated - may still be a candidate for palliative chemo and plans to f/u with Dr. Marie as outpatient. (3) Portal hypertension Comment: - Secondary to portal vein thrombosis. - Weight up to 290lbs today despite diuretics. - Continue to monitor I/Os and daily weights. - Agree with Oncology plan for albumin + furosemide. - Anti Xa activity was 1.2 and creatinine is up to 1.7 - d/w Oncology - will reduce Lovenox dose to 80mg q24h and repeat Anti Xa after 5 doses (4-6h after 5th dose). (4) Lower GI bleed Comment: - Flex sigmoidoscopy did not show a definitive source of bleeding. - Will continue to monitor and transfuse if Hb<8.0 (has h/o CAD). - GI input appreciated and d/w Onc - will adjust Lovenox dose as described above. (5) Cellulitis Comment: - Cellulitis likely streptococcal - continue Cephalexin #5/. (6) Lactic acidosis Comment: - Likely secondary to Metformin use and poor hepatic clearance. - Resolved. (7) DELORES (acute kidney injury) Comment: - On top of CKD secondary to diabetic nephropathy. - Continue to monitor - creatinine slowly trending up with diuretics. (8) DVT prophylaxis Comment: - Lovenox. (9) DNR (do not resuscitate) Status and Disposition: Inpatient.
[2018-02-01] MEDS: Furosemide IV* 10 MG/ML 10 ML VIAL (100 MG) IV SCH (18:17)
[2018-02-01] MEDS ORDERED: Magnesium Sulfate IV* 3 GM in NS 0.9% 100 ML* 100 ML IVPB ONE (18:53)
[2018-02-01] MEDS: Atorvastatin* 20 MG TAB PO SCH (20:52)
[2018-02-01] MEDS ORDERED: Magnesium Oxide TAB* 400 MG PO ONE (21:00)
[2018-02-02] MEDS: Morphine VIAL* 4 MG/ML VIAL (1 ml vial) IV PRN ×6 (00:31→20:37)
[2018-02-02] MEDS: oxyCODONE TAB* 5 MG TAB PO PRN ×2 (02:55→10:46)
[2018-02-02] MEDS: Albumin Human 25%* 12.5 GM/50 ML BTL IV SCH ×7 (03:05→22:55)
[2018-02-02 05:10] LABS: EGFR Non-African American 37.3 (>60)
[2018-02-02] MEDS: Omeprazole CAP* 20 MG PO SCH (07:24)
[2018-02-02] MEDS: Furosemide IV* 10 MG/ML 10 ML VIAL (100 MG) IV SCH (07:24)
[2018-02-02] MEDS: PANCRELIPASE 12000 UNIT PO SCH ×3 (08:45→17:21)
[2018-02-02] MEDS: Spironolactone TAB* 25 MG PO SCH (08:46)
[2018-02-02] MEDS: Metoprolol Succinate XL TAB* 25 MG PO SCH (08:46)
[2018-02-02] MEDS: Cephalexin CAP* 500 MG PO SCH ×4 (08:46→20:48)
[2018-02-02] MEDS: Oxymorphone ER (NF) 5 MG TAB PO SCH (08:46)
[2018-02-02] MEDS: Insulin LISPRO* 1 UNITS UNIT SUBCUT SCH ×7 (08:47→20:50)
[2018-02-02] MEDS ORDERED: Insulin GLARGINE(*) 1 UNITS UNIT SUBCUT SCH (09:00)
--- NOTE | 2018-02-02 11:50 | PN ---
Progress Note - Progress Note Date of Service: 02/02/18 SOAP: Subjective: [Uncomfortable with continued weight gain and abdominal distention despite albumin infusion with IV Lasix. His oral intake was listed as >2L yesterday, but he reports most of what was recorded as intake was used for him to rinse his mouth and in fact, he drank very little. He reports his abdominal pain is manageable with regular IV and oral pain medications. ] Objective: [ Laboratory Results - last 24 hr 02/01/18 02/01/18 02/01/18 05:45 11:51 12:00 Sodium 131 L Potassium 4.7 Chloride 101 Carbon Dioxide 22 Anion Gap 8 BUN 39 H Creatinine 1.77 H Est GFR ( Amer) 47.2 Est GFR (Non-Af Amer) 39.0 BUN/Creatinine Ratio 22.0 H Glucose 244 H POC Glucose (mg/dL) 304 H Calcium 7.8 L Magnesium 1.3 L Ur Random Sodium 115 Ur Random Chloride 131 Urine Potassium 10.8 02/01/18 02/01/18 02/02/18 17:13 20:42 04:40 Sodium 131 L Potassium 4.2 Chloride 99 L Carbon Dioxide 21 L Anion Gap 11 BUN 41 H Creatinine 1.84 H Est GFR ( Amer) 45.2 Est GFR (Non-Af Amer) 37.3 BUN/Creatinine Ratio 22.3 H Glucose 251 H POC Glucose (mg/dL) 211 H 284 H Calcium 8.1 L Magnesium 1.9 Ur Random Sodium Ur Random Chloride Urine Potassium 02/02/18 07:26 Sodium Potassium Chloride Carbon Dioxide Anion Gap BUN Creatinine Est GFR ( Amer) Est GFR (Non-Af Amer) BUN/Creatinine Ratio Glucose POC Glucose (mg/dL) 335 H Calcium Magnesium Ur Random Sodium Ur Random Chloride Urine Potassium Acetaminophen (Tylenol Tab*) 650 mg PO Q4H PRN PRN Reason: FEVER/PAIN Atorvastatin Calcium (Lipitor*) 20 mg PO 2100 [facility] Last Admin: 02/01/18 20:52 Dose: 20 mg Baclofen (Lioresal Tab*) 20 mg PO TID PRN PRN Reason: hiccups Last Admin: 01/31/18 01:17 Dose: 20 mg Cephalexin HCl (Keflex Cap*) 500 mg PO QID [facility] Last Admin: 02/02/18 08:46 Dose: 500 mg Dextrose (D50w Syringe 50 Ml*) 12.5 gm IV PUSH .FOR FS < 60 - SS PRN PRN Reason: FS < 60 Enoxaparin Sodium (Lovenox(*)) 80 mg SUBCUT Q24H [facility] Last Admin: 02/01/18 11:51 Dose: 80 mg Heparin Sodium (Porcine) (Heparin Flush Port (Ivad)) 5 ml FLUSH DAILY [facility]; Protocol Last Admin: 02/02/18 09:03 Dose: Not Given Albumin Human (Albumin Human 25%*) 12.5 gm in 50 mls @ 12 mls/hr IV Q4HR [facility] Stop: 02/04/18 17:59 Last Admin: 02/02/18 10:48 Dose: 12 mls/hr Furosemide 100 mg/ Sodium (Chloride) 100 mls @ 10 mls/hr IV .(as INITIAL RATE) [facility] Insulin Glargine (Lantus(*)) 30 units SUBCUT Q24H [facility] Last Admin: 02/02/18 08:46 Dose: 30 units Insulin Human Lispro (Humalog*) 0 units SUBCUT ACHS [facility]; Protocol Last Admin: 02/02/18 08:47 Dose: 8 units Insulin Human Lispro (Humalog*) 0 units SUBCUT AC [facility]; Protocol Last Admin: 02/02/18 08:47 Dose: 4 units Melatonin (Melatonin) 3 mg PO BEDTIME PRN; Protocol PRN Reason: Sleep Last Admin: 01/30/18 22:55 Dose: 3 mg Metoprolol Succinate (Toprol Xl Tab*) 25 mg PO DAILY [facility] Last Admin: 02/02/18 08:46 Dose: 25 mg Morphine Sulfate (Morphine Vial*) 2 mg IV Q2HR PRN PRN Reason: PAIN - BREAKTHROUGH Last Admin: 02/02/18 06:37 Dose: 2 mg Omeprazole (Prilosec Cap*) 20 mg PO 0730 [facility] Last Admin: 02/02/18 07:24 Dose: 20 mg Ondansetron HCl (Zofran 40 Mg Vial*) 4 mg IV Q6H PRN PRN Reason: NAUSEA Last Admin: 01/31/18 05:25 Dose: 4 mg Oxycodone HCl (Roxycodone Tab*) 5 mg PO Q6H PRN PRN Reason: PAIN Last Admin: 02/02/18 10:46 Dose: 5 mg Oxymorphone HCl (Opana Er (Nf)) 5 mg PO BID [facility] Last Admin: 02/02/18 08:46 Dose: 5 mg Pancrelipase (Creon (Nf)) 12,000 units PO TID WITH MEALS [facility] Last Admin: 02/02/18 08:45 Dose: 12,000 units Prochlorperazine Edisylate (Compazine Inj*) 5 mg IV Q6H PRN PRN Reason: NAUSEA/VOMITING Last Admin: 02/01/18 04:25 Dose: 5 mg Spironolactone (Aldactone Tab*) 50 mg PO DAILY [facility] Last Admin: 02/02/18 08:46 Dose: 50 mg Vital Signs: Temp Pulse Resp BP Pulse Ox 97.6 F 85 17 115/65 99 02/02/18 07:59 02/02/18 07:59 02/02/18 10:46 02/02/18 07:59 02/02/18 07:59 Exam: Gen: 62 yo male who appears slightly older than stated age in NAD HEENT: poor dentition, MMM CV: RRR, no m/r/g Resp: CTA, no w/c/r Abd: somewhat firm, more distended, positive fluid wave, non TTP Ext: 2+ LE edema bilaterally Skin: No rashes] Assessment: [62 yo male with metastatic pancreatic CA followed by outside oncologist who has been hospitalized on multiple occasions with 2 cycles of FOLFIRINOX. He is now hospitalized with evidence of lower GI bleed, hypoglycemia and worsening ascites. Lovenox had been held for lower GI bleed, which now appears to have resolved without obvious source of bleeding identified on sigmoidoscopy. Anti- factor Xa level was elevated at 1.2, but drawn at 3.5 hours after last dose, rather than the recommended 4-6 hours, so this may not be perfectly accurate. Lovenox now resumed, but dose reduced to q24h schedule due to declining CrCl] Plan: [1. Lower GI bleed - resolved - resumed Lovenox 2. Portal vein thrombosis - resumed Lovenox, now 80 mg q 24h - repeat anti-factor Xa level after 5 doses of Lovenox, should be drawn 4-6 hours after 5th dose 3. Metastatic pancreatic CA with ascites - continues to gain weight despite IV Lasix and albumin infusion - continue albumin infusion, and start Lasix drip starting at 10mg/h, may need to titrate up depending on diuretic effect 4. Diabetes - initially hypoglycemic and now hyperglycemic - insulin titration per hospitalist group Dispo: follow up with Dr Marie following discharge] ]
[2018-02-02] MEDS ORDERED: Furosemide IV* 100 MG in NS 0.9% 100 ML* 90 ML IV SCH (12:00)
[2018-02-02] MEDS ORDERED: Insulin GLARGINE(*) 1 UNITS UNIT SUBCUT ONE (12:18)
[2018-02-02] MEDS: Enoxaparin(*) 80 MG/0.8 ML SYR SUBCUT SCH (12:26)
--- NOTE | 2018-02-02 13:49 | PN ---
Subjective Date of Service: 02/02/18 Interval History: C/O back pain. No subj decrease in abdominal girth. Family History: Unchanged from Admission Social History: Unchanged from Admission Past Medical History: Unchanged from Admission Objective Active Medications: Acetaminophen (Tylenol Tab*) 650 mg PO Q4H PRN PRN Reason: FEVER/PAIN Atorvastatin Calcium (Lipitor*) 20 mg PO 2100 [facility] Last Admin: 02/01/18 20:52 Dose: 20 mg Baclofen (Lioresal Tab*) 20 mg PO TID PRN PRN Reason: hiccups Last Admin: 01/31/18 01:17 Dose: 20 mg Cephalexin HCl (Keflex Cap*) 500 mg PO QID [facility] Last Admin: 02/02/18 12:27 Dose: 500 mg Dextrose (D50w Syringe 50 Ml*) 12.5 gm IV PUSH .FOR FS < 60 - SS PRN PRN Reason: FS < 60 Enoxaparin Sodium (Lovenox(*)) 80 mg SUBCUT Q24H [facility] Last Admin: 02/02/18 12:26 Dose: 80 mg Heparin Sodium (Porcine) (Heparin Flush Port (Ivad)) 5 ml FLUSH DAILY [facility]; Protocol Last Admin: 02/02/18 09:03 Dose: Not Given Albumin Human (Albumin Human 25%*) 12.5 gm in 50 mls @ 12 mls/hr IV Q4HR [facility] Stop: 02/04/18 17:59 Last Admin: 02/02/18 10:48 Dose: 12 mls/hr Furosemide 100 mg/ Sodium (Chloride) 100 mls @ 10 mls/hr IV Q10H [facility] Insulin Glargine (Lantus(*)) 35 units SUBCUT Q24H [facility] Insulin Human Lispro (Humalog*) 0 units SUBCUT ACHS [facility]; Protocol Last Admin: 02/02/18 12:27 Dose: 10 units Insulin Human Lispro (Humalog*) 0 units SUBCUT AC [facility]; Protocol Last Admin: 02/02/18 13:14 Dose: 7 units Melatonin (Melatonin) 3 mg PO BEDTIME PRN; Protocol PRN Reason: Sleep Last Admin: 01/30/18 22:55 Dose: 3 mg Metoprolol Succinate (Toprol Xl Tab*) 25 mg PO DAILY [facility] Last Admin: 02/02/18 08:46 Dose: 25 mg Morphine Sulfate (Morphine Vial*) 2 mg IV Q2HR PRN PRN Reason: PAIN - BREAKTHROUGH Last Admin: 02/02/18 12:26 Dose: 2 mg Omeprazole (Prilosec Cap*) 20 mg PO 0730 [facility] Last Admin: 02/02/18 07:24 Dose: 20 mg Ondansetron HCl (Zofran 40 Mg Vial*) 4 mg IV Q6H PRN PRN Reason: NAUSEA Last Admin: 01/31/18 05:25 Dose: 4 mg Oxycodone HCl (Roxycodone Tab*) 5 mg PO Q6H PRN PRN Reason: PAIN Last Admin: 02/02/18 10:46 Dose: 5 mg Oxymorphone HCl (Opana Er (Nf)) 5 mg PO BID [facility] Last Admin: 02/02/18 08:46 Dose: 5 mg Pancrelipase (Creon (Nf)) 12,000 units PO TID WITH MEALS [facility] Last Admin: 02/02/18 12:27 Dose: 12,000 units Prochlorperazine Edisylate (Compazine Inj*) 5 mg IV Q6H PRN PRN Reason: NAUSEA/VOMITING Last Admin: 02/01/18 04:25 Dose: 5 mg Spironolactone (Aldactone Tab*) 50 mg PO DAILY [facility] Last Admin: 02/02/18 08:46 Dose: 50 mg Vital Signs - 8 hr 02/02/18 02/02/18 02/02/18 06:37 06:40 07:19 Temperature 98.2 F Pulse Rate 94 Respiratory 16 16 14 Rate Blood Pressure 114/73 (mmHg) O2 Sat by Pulse 98 Oximetry 02/02/18 02/02/18 02/02/18 07:37 07:38 07:59 Temperature 97.9 F 97.6 F Pulse Rate 89 85 Respiratory 16 17 16 Rate Blood Pressure 121/70 115/65 (mmHg) O2 Sat by Pulse 97 99 Oximetry 02/02/18 02/02/18 02/02/18 08:00 08:46 10:46 Temperature Pulse Rate Respiratory 17 17 17 Rate Blood Pressure (mmHg) O2 Sat by Pulse Oximetry 02/02/18 12:26 Temperature Pulse Rate Respiratory 16 Rate Blood Pressure (mmHg) O2 Sat by Pulse Oximetry Oxygen Devices in Use Now: None Appearance: Alert, supine in bed. In fair spirits. Looks comfortable. Eyes: No Scleral Icterus Abdominal: - - massive ascites. Abd soft, non-tender. Nl BS. Extremities: - - Tr edema above elastic wraps Skin: No Nodules or Sclerosis, - - Both lower legs in elastic wrap. Neurological: Alert and Oriented x 3, NL Sensation Result Diagrams: 02/01/18 05:45 02/02/18 04:40 Additional Lab and Data: Lab Results 01/25/18 01/25/18 01/25/18 Range/Units 09:22 09:22 09:22 WBC 5.7 (3.5-10.8) 10^3/ul RBC 3.83 L (4.00-5.40) 10^6/ul Hgb 11.1 L (14.0-18.0) g/dl Hct 33 L (42-52) % MCV 86 (80-94) fL MCH 29 (27-31) pg MCHC 34 (31-36) g/dl RDW 18 H (10.5-15) % Plt Count 168 (150-450) 10^3/ul MPV 8.7 (7.4-10.4) um3 Neut % (Auto) 77.9 (38-83) % Lymph % (Auto) 9.1 L (25-47) % [place] % (Auto) 12.6 H (0-7) % Eos % (Auto) 0 (0-6) % Baso % (Auto) 0.4 (0-2) % Absolute Neuts (auto) 4.4 (1.5-7.7) 10^3/ul Absolute Lymphs (auto) 0.5 L (1.0-4.8) 10^3/ul Absolute Monos (auto) 0.7 (0-0.8) 10^3/ul Absolute Eos (auto) 0 (0-0.6) 10^3/ul Absolute Basos (auto) 0 (0-0.2) 10^3/ul Absolute Nucleated RBC 0 10^3/ul Nucleated RBC % 0 INR (Anticoag Therapy) (0.77-1.02) Sodium 140 (139-145) mmol/L Potassium 4.4 (3.5-5.0) mmol/L Chloride 111 (101-111) mmol/L Carbon Dioxide 20 L (22-32) mmol/L Anion Gap 9 (2-11) mmol/L BUN 33 H (6-24) mg/dL Creatinine 1.23 H (0.67-1.17) mg/dL Est GFR ( Amer) 76.4 (>60) Est GFR (Non-Af Amer) 59.4 (>60) BUN/Creatinine Ratio 26.8 H (8-20) Glucose 47 L* (70-100) mg/dL POC Glucose (mg/dL) (70-100) mg/dL Lactic Acid 3.9 H* (0.5-2.0) mmol/L Calcium 8.8 (8.6-10.3) mg/dL Total Bilirubin 0.50 (0.2-1.0) mg/dL AST 50 H (13-39) U/L ALT 50 (7-52) U/L Alkaline Phosphatase 179 H (34-104) U/L C-Reactive Protein 1.66 (< 5.00) mg/L Total Protein 5.6 L (6.4-8.9) g/dL Albumin 2.9 L (3.2-5.2) g/dL Globulin 2.7 (2-4) g/dL Albumin/Globulin Ratio 1.1 (1-3) Lipase 10 L (11.0-82.0) U/L 01/25/18 01/25/18 Range/Units 09:22 11:34 WBC (3.5-10.8) 10^3/ul RBC (4.00-5.40) 10^6/ul Hgb (14.0-18.0) g/dl Hct (42-52) % MCV (80-94) fL MCH (27-31) pg MCHC (31-36) g/dl RDW (10.5-15) % Plt Count (150-450) 10^3/ul MPV (7.4-10.4) um3 Neut % (Auto) (38-83) % Lymph % (Auto) (25-47) % [place] % (Auto) (0-7) % Eos % (Auto) (0-6) % Baso % (Auto) (0-2) % Absolute Neuts (auto) (1.5-7.7) 10^3/ul Absolute Lymphs (auto) (1.0-4.8) 10^3/ul Absolute Monos (auto) (0-0.8) 10^3/ul Absolute Eos (auto) (0-0.6) 10^3/ul Absolute Basos (auto) (0-0.2) 10^3/ul Absolute Nucleated RBC 10^3/ul Nucleated RBC % INR (Anticoag Therapy) 1.59 H (0.77-1.02) Sodium (139-145) mmol/L Potassium (3.5-5.0) mmol/L Chloride (101-111) mmol/L Carbon Dioxide (22-32) mmol/L Anion Gap (2-11) mmol/L BUN (6-24) mg/dL Creatinine (0.67-1.17) mg/dL Est GFR ( Amer) (>60) Est GFR (Non-Af Amer) (>60) BUN/Creatinine Ratio (8-20) Glucose (70-100) mg/dL POC Glucose (mg/dL) 144 H (70-100) mg/dL Lactic Acid (0.5-2.0) mmol/L Calcium (8.6-10.3) mg/dL Total Bilirubin (0.2-1.0) mg/dL AST (13-39) U/L ALT (7-52) U/L Alkaline Phosphatase (34-104) U/L C-Reactive Protein (< 5.00) mg/L Total Protein (6.4-8.9) g/dL Albumin (3.2-5.2) g/dL Globulin (2-4) g/dL Albumin/Globulin Ratio (1-3) Lipase (11.0-82.0) U/L Microbiology and Other Data: Microbiology 01/26/18 16:55 Gram Stain - Final Body Fluid - Peritoneal Assess/Plan/Problems-Billing Assessment: Mr. Weaver is a 62yo M with PMH of metastatic pancreatic CA, portal vein thrombosis, DM, diastolic CHF, CAD, HLD, HTN, asthma, GERD, who presented to ED with hypoglycemia, abdominal and back pain. - Patient Problems (1) Pancreatic cancer Current Visit: No Status: Acute Comment: Increase oxymorphone to 10 mg bid. Continue enoxaparin for portal vein thrombosis. Continue furosemide infusion, IV albumin, and spironolactone for ascites. (2) Cellulitis Current Visit: Yes Status: Acute Code(s): L03.90 - CELLULITIS, UNSPECIFIED SNOMED Code(s): 507091854 Comment: - Cellulitis likely streptococcal - continue cephalexin, last day . (3) DM type 2 causing CKD stage 3 Current Visit: Yes Status: Acute Code(s): E11.22 - TYPE 2 DIABETES MELLITUS W DIABETIC CHRONIC KIDNEY DISEASE; N18.3 - CHRONIC KIDNEY DISEASE, STAGE 3 ( MODERATE) SNOMED Code(s): 72341223 Comment: cont ISS, increase Lantus to 35 U/d 02/02 ( 5 U catch up dose given) . (4) CAD (coronary artery disease) Current Visit: No Status: Chronic Priority: Medium Code(s): I25.10 - ATHSCL HEART DISEASE OF [place] CORONARY ARTERY W/O ANG PCTRS SNOMED Code(s): 08914418 Comment: Asymptomatic, cont BB, statin Status and Disposition: Inpatient.
[2018-02-02] MEDS: Furosemide IV* 100 MG in NS 0.9% 100 ML* 90 ML IV SCH (14:59)
[2018-02-02] MEDS: Atorvastatin* 20 MG TAB PO SCH (20:48)
[2018-02-02] MEDS: Baclofen TAB* 20 MG PO PRN (20:49)
[2018-02-02] MEDS: OXYMORPHONE 5 MG PO SCH (20:49)
[2018-02-03] MEDS: Furosemide IV* 100 MG in NS 0.9% 100 ML* 90 ML IV SCH ×3 (01:06→21:24)
[2018-02-03] MEDS: Morphine VIAL* 4 MG/ML VIAL (1 ml vial) IV PRN (01:06)
[2018-02-03] MEDS: oxyCODONE TAB* 5 MG TAB PO PRN ×3 (01:58→17:47)
[2018-02-03] MEDS: Albumin Human 25%* 12.5 GM/50 ML BTL IV SCH ×6 (02:56→21:29)
[2018-02-03 06:28] LABS: EGFR Non-African American 38.3 (>60)
[2018-02-03] MEDS: PANCRELIPASE 12000 UNIT PO SCH ×3 (09:03→17:46)
[2018-02-03] MEDS ORDERED: Furosemide IV* 10 MG/ML 10 ML VIAL (100 MG) ONE (09:54)
[2018-02-03] MEDS: Enoxaparin(*) 80 MG/0.8 ML SYR SUBCUT SCH (10:10)
[2018-02-03] MEDS: PROCHLORPERAZINE INJ 5 MG/ML 2 ML VIAL IV PRN (10:11)
[2018-02-03] MEDS: OXYMORPHONE 5 MG PO SCH ×2 (10:12→21:30)
[2018-02-03] MEDS: Omeprazole CAP* 20 MG PO SCH (10:12)
[2018-02-03] MEDS: Spironolactone TAB* 25 MG PO SCH (10:12)
[2018-02-03] MEDS: Cephalexin CAP* 500 MG PO SCH ×4 (10:12→21:30)
[2018-02-03] MEDS: Insulin LISPRO* 1 UNITS UNIT SUBCUT SCH ×7 (10:13→21:31)
--- NOTE | 2018-02-03 12:39 | PN ---
Subjective Date of Service: 02/03/18 Interval History: Feels a little better after yesterday's diuresis but would like to lose 20 more pounds so he could walk well at home. Family History: Unchanged from Admission Social History: Unchanged from Admission Past Medical History: Unchanged from Admission Objective Active Medications: Acetaminophen (Tylenol Tab*) 650 mg PO Q4H PRN PRN Reason: FEVER/PAIN Atorvastatin Calcium (Lipitor*) 20 mg PO 2100 [facility] Last Admin: 02/02/18 20:48 Dose: 20 mg Baclofen (Lioresal Tab*) 20 mg PO TID PRN PRN Reason: hiccups Last Admin: 02/02/18 20:49 Dose: 20 mg Cephalexin HCl (Keflex Cap*) 500 mg PO QID [facility] Last Admin: 02/03/18 10:12 Dose: 500 mg Dextrose (D50w Syringe 50 Ml*) 12.5 gm IV PUSH .FOR FS < 60 - SS PRN PRN Reason: FS < 60 Enoxaparin Sodium (Lovenox(*)) 80 mg SUBCUT Q24H [facility] Last Admin: 02/03/18 10:10 Dose: 80 mg Heparin Sodium (Porcine) (Heparin Flush Port (Ivad)) 5 ml FLUSH DAILY [facility]; Protocol Last Admin: 02/03/18 10:13 Dose: Not Given Albumin Human (Albumin Human 25%*) 12.5 gm in 50 mls @ 12 mls/hr IV Q4HR [facility] Stop: 02/04/18 17:59 Last Admin: 02/03/18 09:03 Dose: 12 mls/hr Furosemide 100 mg/ Sodium (Chloride) 100 mls @ 10 mls/hr IV Q10H [facility] Last Admin: 02/03/18 10:57 Dose: 10 mls/hr Insulin Glargine (Lantus(*)) 35 units SUBCUT Q24H [facility] Insulin Human Lispro (Humalog*) 0 units SUBCUT ACHS [facility]; Protocol Last Admin: 02/03/18 10:13 Dose: 2 units Insulin Human Lispro (Humalog*) 0 units SUBCUT AC [facility]; Protocol Last Admin: 02/03/18 10:14 Dose: 4 units Metoprolol Succinate (Toprol Xl Tab*) 25 mg PO DAILY [facility] Last Admin: 02/02/18 08:46 Dose: 25 mg Morphine Sulfate (Morphine Vial*) 2 mg IV Q2HR PRN PRN Reason: PAIN - BREAKTHROUGH Last Admin: 02/03/18 01:06 Dose: 2 mg Omeprazole (Prilosec Cap*) 20 mg PO 0730 [facility] Last Admin: 02/03/18 10:12 Dose: 20 mg Ondansetron HCl (Zofran 40 Mg Vial*) 4 mg IV Q6H PRN PRN Reason: NAUSEA Last Admin: 01/31/18 05:25 Dose: 4 mg Oxycodone HCl (Roxycodone Tab*) 5 mg PO Q6H PRN PRN Reason: PAIN Last Admin: 02/03/18 10:11 Dose: 5 mg Oxymorphone HCl (Opana Er (Nf)) 10 mg PO BID [facility] Last Admin: 02/03/18 10:12 Dose: 10 mg Pancrelipase (Creon (Nf)) 12,000 units PO TID WITH MEALS [facility] Last Admin: 02/03/18 09:03 Dose: 12,000 units Prochlorperazine Edisylate (Compazine Inj*) 5 mg IV Q6H PRN PRN Reason: NAUSEA/VOMITING Last Admin: 02/03/18 10:11 Dose: 5 mg Spironolactone (Aldactone Tab*) 50 mg PO DAILY [facility] Last Admin: 02/03/18 10:12 Dose: 50 mg Vital Signs - 8 hr 02/03/18 02/03/18 02/03/18 07:29 07:32 09:16 Temperature 98.0 F 98.1 F Pulse Rate 80 89 Respiratory 16 18 Rate Blood Pressure 97/62 99/59 99/64 (mmHg) O2 Sat by Pulse 99 Oximetry 02/03/18 02/03/18 02/03/18 09:50 10:11 10:12 Temperature 98.2 F Pulse Rate 91 Respiratory 18 16 18 Rate Blood Pressure 100/56 (mmHg) O2 Sat by Pulse Oximetry Oxygen Devices in Use Now: None Appearance: Alert, sitting on the edge of his bed. In fair spirits. Looks comfortable. Eyes: No Scleral Icterus Abdominal: - - massive ascites Extremities: No Clubbing, Cyanosis, - - 1+ edema BL Skin: No Rash or Ulcers, No Nodules or Sclerosis, - Neurological: Alert and Oriented x 3, NL Sensation Result Diagrams: 02/01/18 05:45 02/03/18 05:40 Additional Lab and Data: Lab Results 01/25/18 01/25/18 01/25/18 Range/Units 09:22 09:22 09:22 WBC 5.7 (3.5-10.8) 10^3/ul RBC 3.83 L (4.00-5.40) 10^6/ul Hgb 11.1 L (14.0-18.0) g/dl Hct 33 L (42-52) % MCV 86 (80-94) fL MCH 29 (27-31) pg MCHC 34 (31-36) g/dl RDW 18 H (10.5-15) % Plt Count 168 (150-450) 10^3/ul MPV 8.7 (7.4-10.4) um3 Neut % (Auto) 77.9 (38-83) % Lymph % (Auto) 9.1 L (25-47) % [place] % (Auto) 12.6 H (0-7) % Eos % (Auto) 0 (0-6) % Baso % (Auto) 0.4 (0-2) % Absolute Neuts (auto) 4.4 (1.5-7.7) 10^3/ul Absolute Lymphs (auto) 0.5 L (1.0-4.8) 10^3/ul Absolute Monos (auto) 0.7 (0-0.8) 10^3/ul Absolute Eos (auto) 0 (0-0.6) 10^3/ul Absolute Basos (auto) 0 (0-0.2) 10^3/ul Absolute Nucleated RBC 0 10^3/ul Nucleated RBC % 0 INR (Anticoag Therapy) (0.77-1.02) Sodium 140 (139-145) mmol/L Potassium 4.4 (3.5-5.0) mmol/L Chloride 111 (101-111) mmol/L Carbon Dioxide 20 L (22-32) mmol/L Anion Gap 9 (2-11) mmol/L BUN 33 H (6-24) mg/dL Creatinine 1.23 H (0.67-1.17) mg/dL Est GFR ( Amer) 76.4 (>60) Est GFR (Non-Af Amer) 59.4 (>60) BUN/Creatinine Ratio 26.8 H (8-20) Glucose 47 L* (70-100) mg/dL POC Glucose (mg/dL) (70-100) mg/dL Lactic Acid 3.9 H* (0.5-2.0) mmol/L Calcium 8.8 (8.6-10.3) mg/dL Total Bilirubin 0.50 (0.2-1.0) mg/dL AST 50 H (13-39) U/L ALT 50 (7-52) U/L Alkaline Phosphatase 179 H (34-104) U/L C-Reactive Protein 1.66 (< 5.00) mg/L Total Protein 5.6 L (6.4-8.9) g/dL Albumin 2.9 L (3.2-5.2) g/dL Globulin 2.7 (2-4) g/dL Albumin/Globulin Ratio 1.1 (1-3) Lipase 10 L (11.0-82.0) U/L 01/25/18 01/25/18 Range/Units 09:22 11:34 WBC (3.5-10.8) 10^3/ul RBC (4.00-5.40) 10^6/ul Hgb (14.0-18.0) g/dl Hct (42-52) % MCV (80-94) fL MCH (27-31) pg MCHC (31-36) g/dl RDW (10.5-15) % Plt Count (150-450) 10^3/ul MPV (7.4-10.4) um3 Neut % (Auto) (38-83) % Lymph % (Auto) (25-47) % [place] % (Auto) (0-7) % Eos % (Auto) (0-6) % Baso % (Auto) (0-2) % Absolute Neuts (auto) (1.5-7.7) 10^3/ul Absolute Lymphs (auto) (1.0-4.8) 10^3/ul Absolute Monos (auto) (0-0.8) 10^3/ul Absolute Eos (auto) (0-0.6) 10^3/ul Absolute Basos (auto) (0-0.2) 10^3/ul Absolute Nucleated RBC 10^3/ul Nucleated RBC % INR (Anticoag Therapy) 1.59 H (0.77-1.02) Sodium (139-145) mmol/L Potassium (3.5-5.0) mmol/L Chloride (101-111) mmol/L Carbon Dioxide (22-32) mmol/L Anion Gap (2-11) mmol/L BUN (6-24) mg/dL Creatinine (0.67-1.17) mg/dL Est GFR ( Amer) (>60) Est GFR (Non-Af Amer) (>60) BUN/Creatinine Ratio (8-20) Glucose (70-100) mg/dL POC Glucose (mg/dL) 144 H (70-100) mg/dL Lactic Acid (0.5-2.0) mmol/L Calcium (8.6-10.3) mg/dL Total Bilirubin (0.2-1.0) mg/dL AST (13-39) U/L ALT (7-52) U/L Alkaline Phosphatase (34-104) U/L C-Reactive Protein (< 5.00) mg/L Total Protein (6.4-8.9) g/dL Albumin (3.2-5.2) g/dL Globulin (2-4) g/dL Albumin/Globulin Ratio (1-3) Lipase (11.0-82.0) U/L Microbiology and Other Data: Microbiology 01/26/18 16:55 Gram Stain - Final Body Fluid - Peritoneal Assess/Plan/Problems-Billing Assessment: Mr. Weaver is a 62yo M with PMH of metastatic pancreatic CA, portal vein thrombosis, DM, diastolic CHF, CAD, HLD, HTN, asthma, GERD, who presented to ED with hypoglycemia, abdominal and back pain. - Patient Problems (1) Pancreatic cancer Current Visit: No Status: Acute Comment: Continue oxymorphone 10 mg bid. Patient states he is catching up on sleep now that the pain is william controlled , will consider reduction in oxymorphone dose later. Continue enoxaparin for portal vein thrombosis. Continue furosemide infusion, IV albumin, and spironolactone for ascites. Creat 1.80 02/03, will repeat BMP in 2 days. (2) Cellulitis Current Visit: Yes Status: Acute Code(s): L03.90 - CELLULITIS, UNSPECIFIED SNOMED Code(s): 885335076 Comment: - Cellulitis likely streptococcal - continue cephalexin, last day . Margins of eryethem R leg inked on 02/03. (3) DM type 2 causing CKD stage 3 Current Visit: Yes Status: Acute Code(s): E11.22 - TYPE 2 DIABETES MELLITUS W DIABETIC CHRONIC KIDNEY DISEASE; N18.3 - CHRONIC KIDNEY DISEASE, STAGE 3 ( MODERATE) SNOMED Code(s): 76929159 Comment: cont ISS, increase Lantus to 35 U/d 02/02 ( 5 U catch up dose given) . (4) CAD (coronary artery disease) Current Visit: No Status: Chronic Priority: Medium Code(s): I25.10 - ATHSCL HEART DISEASE OF [place] CORONARY ARTERY W/O ANG PCTRS SNOMED Code(s): 52924524 Comment: Asymptomatic, cont BB, statin Status and Disposition: Inpatient.
[2018-02-03] MEDS: Metoprolol Succinate XL TAB* 25 MG PO SCH (12:56)
[2018-02-03] MEDS: Insulin GLARGINE(*) 1 UNITS UNIT SUBCUT SCH (14:05)
[2018-02-03] MEDS: Atorvastatin* 20 MG TAB PO SCH (21:30)
[2018-02-04] MEDS: Albumin Human 25%* 12.5 GM/50 ML BTL IV SCH ×4 (01:52→16:33)
[2018-02-04] MEDS: oxyCODONE TAB* 5 MG TAB PO PRN ×4 (01:53→22:53)
[2018-02-04] MEDS: Insulin LISPRO* 1 UNITS UNIT SUBCUT SCH ×7 (09:06→21:15)
[2018-02-04] MEDS: PANCRELIPASE 12000 UNIT PO SCH ×3 (09:07→17:24)
[2018-02-04] MEDS: Spironolactone TAB* 25 MG PO SCH (09:08)
[2018-02-04] MEDS: Cephalexin CAP* 500 MG PO SCH ×4 (09:08→20:43)
[2018-02-04] MEDS: Metoprolol Succinate XL TAB* 25 MG PO SCH (09:08)
[2018-02-04] MEDS: OXYMORPHONE 5 MG PO SCH ×2 (09:08→20:44)
[2018-02-04] MEDS: Omeprazole CAP* 20 MG PO SCH (09:09)
[2018-02-04] MEDS: Furosemide IV* 100 MG in NS 0.9% 100 ML* 90 ML IV SCH ×2 (11:06→22:50)
[2018-02-04] MEDS: Enoxaparin(*) 80 MG/0.8 ML SYR SUBCUT SCH (11:08)
[2018-02-04] MEDS: Insulin GLARGINE(*) 1 UNITS UNIT SUBCUT SCH (12:41)
[2018-02-04] MEDS ORDERED: oxyCODONE TAB* 5 MG TAB PO ONE (13:43)
[2018-02-04] MEDS ORDERED: oxyCODONE TAB* 5 MG TAB ONE (13:49)
[2018-02-04] MEDS ORDERED: Insulin GLARGINE(*) 1 UNITS UNIT SUBCUT ONE (13:51)
[2018-02-04] MEDS: PROCHLORPERAZINE INJ 5 MG/ML 2 ML VIAL IV PRN ×2 (13:51→22:55)
--- NOTE | 2018-02-04 13:51 | PN ---
Subjective Date of Service: 02/04/18 Interval History: C/O pain in back, abdomen, legs. Family History: Unchanged from Admission Social History: Unchanged from Admission Past Medical History: Unchanged from Admission Objective Active Medications: Acetaminophen (Tylenol Tab*) 650 mg PO Q4H PRN PRN Reason: FEVER/PAIN Atorvastatin Calcium (Lipitor*) 20 mg PO 2100 [facility] Last Admin: 02/03/18 21:30 Dose: 20 mg Baclofen (Lioresal Tab*) 20 mg PO TID PRN PRN Reason: hiccups Last Admin: 02/02/18 20:49 Dose: 20 mg Cephalexin HCl (Keflex Cap*) 500 mg PO QID [facility] Stop: 02/05/18 23:30 Last Admin: 02/04/18 12:41 Dose: 500 mg Dextrose (D50w Syringe 50 Ml*) 12.5 gm IV PUSH .FOR FS < 60 - SS PRN PRN Reason: FS < 60 Enoxaparin Sodium (Lovenox(*)) 80 mg SUBCUT Q24H [facility] Last Admin: 02/04/18 11:08 Dose: 80 mg Heparin Sodium (Porcine) (Heparin Flush Port (Ivad)) 5 ml FLUSH DAILY [facility]; Protocol Last Admin: 02/04/18 09:09 Dose: Not Given Albumin Human (Albumin Human 25%*) 12.5 gm in 50 mls @ 12 mls/hr IV Q4HR [facility] Stop: 02/04/18 17:59 Last Admin: 02/04/18 11:05 Dose: 12 mls/hr Furosemide 100 mg/ Sodium (Chloride) 100 mls @ 10 mls/hr IV Q10H [facility] Last Admin: 02/04/18 11:06 Dose: 10 mls/hr Insulin Glargine (Lantus(*)) 35 units SUBCUT Q24H [facility] Last Admin: 02/04/18 12:41 Dose: 35 units Insulin Human Lispro (Humalog*) 0 units SUBCUT ACHS [facility]; Protocol Last Admin: 02/04/18 12:41 Dose: 4 units Insulin Human Lispro (Humalog*) 0 units SUBCUT AC [facility]; Protocol Last Admin: 02/04/18 12:42 Dose: 7 units Metoprolol Succinate (Toprol Xl Tab*) 25 mg PO DAILY [facility] Last Admin: 02/04/18 09:08 Dose: 25 mg Omeprazole (Prilosec Cap*) 20 mg PO 0730 [facility] Last Admin: 02/04/18 09:09 Dose: 20 mg Ondansetron HCl (Zofran 40 Mg Vial*) 4 mg IV Q6H PRN PRN Reason: NAUSEA Last Admin: 01/31/18 05:25 Dose: 4 mg Oxycodone HCl (Roxycodone Tab*) 5 mg PO ONCE ONE Stop: 02/04/18 13:44 Oxycodone HCl (Roxycodone Tab*) 10 mg PO Q3H PRN PRN Reason: PAIN Oxymorphone HCl (Opana Er (Nf)) 10 mg PO BID [facility] Last Admin: 02/04/18 09:08 Dose: 10 mg Pancrelipase (Creon (Nf)) 12,000 units PO TID WITH MEALS [facility] Last Admin: 02/04/18 12:41 Dose: 12,000 units Prochlorperazine Edisylate (Compazine Inj*) 5 mg IV Q6H PRN PRN Reason: NAUSEA/VOMITING Last Admin: 02/03/18 10:11 Dose: 5 mg Spironolactone (Aldactone Tab*) 50 mg PO DAILY [facility] Last Admin: 02/04/18 09:08 Dose: 50 mg Vital Signs - 8 hr 02/04/18 02/04/18 02/04/18 06:01 06:11 07:33 Temperature 98.4 F 98.5 F 98.4 F Pulse Rate 99 96 98 Respiratory 16 16 12 Rate Blood Pressure 126/71 125/79 124/64 (mmHg) O2 Sat by Pulse 98 98 96 Oximetry 02/04/18 02/04/18 02/04/18 08:00 09:08 11:07 Temperature 98.6 F Pulse Rate 91 Respiratory 12 14 Rate Blood Pressure 122/67 (mmHg) O2 Sat by Pulse 99 Oximetry 02/04/18 02/04/18 02/04/18 11:22 11:31 13:27 Temperature 98.3 F Pulse Rate 96 Respiratory 12 16 14 Rate Blood Pressure 125/66 (mmHg) O2 Sat by Pulse 99 Oximetry Oxygen Devices in Use Now: None Appearance: Alert, sitting on the edge of the bed. In fair spirits. Eyes: No Scleral Icterus Abdominal: - - massive ascites Extremities: No Clubbing, Cyanosis, - - 2+ edema BL Skin: No Nodules or Sclerosis, - - Redness R lower leg less intenses, margins unchanged Neurological: Alert and Oriented x 3, NL Sensation Result Diagrams: 02/01/18 05:45 02/03/18 05:40 Additional Lab and Data: Lab Results 01/25/18 01/25/18 01/25/18 Range/Units 09:22 09:22 09:22 WBC 5.7 (3.5-10.8) 10^3/ul RBC 3.83 L (4.00-5.40) 10^6/ul Hgb 11.1 L (14.0-18.0) g/dl Hct 33 L (42-52) % MCV 86 (80-94) fL MCH 29 (27-31) pg MCHC 34 (31-36) g/dl RDW 18 H (10.5-15) % Plt Count 168 (150-450) 10^3/ul MPV 8.7 (7.4-10.4) um3 Neut % (Auto) 77.9 (38-83) % Lymph % (Auto) 9.1 L (25-47) % [place] % (Auto) 12.6 H (0-7) % Eos % (Auto) 0 (0-6) % Baso % (Auto) 0.4 (0-2) % Absolute Neuts (auto) 4.4 (1.5-7.7) 10^3/ul Absolute Lymphs (auto) 0.5 L (1.0-4.8) 10^3/ul Absolute Monos (auto) 0.7 (0-0.8) 10^3/ul Absolute Eos (auto) 0 (0-0.6) 10^3/ul Absolute Basos (auto) 0 (0-0.2) 10^3/ul Absolute Nucleated RBC 0 10^3/ul Nucleated RBC % 0 INR (Anticoag Therapy) (0.77-1.02) Sodium 140 (139-145) mmol/L Potassium 4.4 (3.5-5.0) mmol/L Chloride 111 (101-111) mmol/L Carbon Dioxide 20 L (22-32) mmol/L Anion Gap 9 (2-11) mmol/L BUN 33 H (6-24) mg/dL Creatinine 1.23 H (0.67-1.17) mg/dL Est GFR ( Amer) 76.4 (>60) Est GFR (Non-Af Amer) 59.4 (>60) BUN/Creatinine Ratio 26.8 H (8-20) Glucose 47 L* (70-100) mg/dL POC Glucose (mg/dL) (70-100) mg/dL Lactic Acid 3.9 H* (0.5-2.0) mmol/L Calcium 8.8 (8.6-10.3) mg/dL Total Bilirubin 0.50 (0.2-1.0) mg/dL AST 50 H (13-39) U/L ALT 50 (7-52) U/L Alkaline Phosphatase 179 H (34-104) U/L C-Reactive Protein 1.66 (< 5.00) mg/L Total Protein 5.6 L (6.4-8.9) g/dL Albumin 2.9 L (3.2-5.2) g/dL Globulin 2.7 (2-4) g/dL Albumin/Globulin Ratio 1.1 (1-3) Lipase 10 L (11.0-82.0) U/L 18 01/25/18 Range/Units 09:22 11:34 WBC (3.5-10.8) 10^3/ul RBC (4.00-5.40) 10^6/ul Hgb (14.0-18.0) g/dl Hct (42-52) % MCV (80-94) fL MCH (27-31) pg MCHC (31-36) g/dl RDW (10.5-15) % Plt Count (150-450) 10^3/ul MPV (7.4-10.4) um3 Neut % (Auto) (38-83) % Lymph % (Auto) (25-47) % [place] % (Auto) (0-7) % Eos % (Auto) (0-6) % Baso % (Auto) (0-2) % Absolute Neuts (auto) (1.5-7.7) 10^3/ul Absolute Lymphs (auto) (1.0-4.8) 10^3/ul Absolute Monos (auto) (0-0.8) 10^3/ul Absolute Eos (auto) (0-0.6) 10^3/ul Absolute Basos (auto) (0-0.2) 10^3/ul Absolute Nucleated RBC 10^3/ul Nucleated RBC % INR (Anticoag Therapy) 1.59 H (0.77-1.02) Sodium (139-145) mmol/L Potassium (3.5-5.0) mmol/L Chloride (101-111) mmol/L Carbon Dioxide (22-32) mmol/L Anion Gap (2-11) mmol/L BUN (6-24) mg/dL Creatinine (0.67-1.17) mg/dL Est GFR ( Amer) (>60) Est GFR (Non-Af Amer) (>60) BUN/Creatinine Ratio (8-20) Glucose (70-100) mg/dL POC Glucose (mg/dL) 144 H (70-100) mg/dL Lactic Acid (0.5-2.0) mmol/L Calcium (8.6-10.3) mg/dL Total Bilirubin (0.2-1.0) mg/dL AST (13-39) U/L ALT (7-52) U/L Alkaline Phosphatase (34-104) U/L C-Reactive Protein (< 5.00) mg/L Total Protein (6.4-8.9) g/dL Albumin (3.2-5.2) g/dL Globulin (2-4) g/dL Albumin/Globulin Ratio (1-3) Lipase (11.0-82.0) U/L Microbiology and Other Data: Microbiology 01/26/18 16:55 Gram Stain - Final Body Fluid - Peritoneal Assess/Plan/Problems-Billing Assessment: Mr. Weaver is a 62yo M with PMH of metastatic pancreatic CA, portal vein thrombosis, DM, diastolic CHF, CAD, HLD, HTN, asthma, GERD, who presented to ED with hypoglycemia, abdominal and back pain. - Patient Problems (1) Pancreatic cancer Current Visit: No Status: Acute Comment: Continue oxymorphone 10 mg bid. Increase oxycodone to 10 mg q 3 hr PRN 02/04. Continue enoxaparin for portal vein thrombosis. Continue furosemide infusion, IV albumin, and spironolactone for ascites. Creat 1.80 02/03. Repeat BMP 02/04. (2) Cellulitis Current Visit: Yes Status: Acute Code(s): L03.90 - CELLULITIS, UNSPECIFIED SNOMED Code(s): 345777893 Comment: - Cellulitis likely streptococcal - continue cephalexin, last day . Margins of eryethem R leg inked on 02/03, unchanged on 02/04.. (3) DM type 2 causing CKD stage 3 Current Visit: Yes Status: Acute Code(s): E11.22 - TYPE 2 DIABETES MELLITUS W DIABETIC CHRONIC KIDNEY DISEASE; N18.3 - CHRONIC KIDNEY DISEASE, STAGE 3 ( MODERATE) SNOMED Code(s): 17340580 Comment: cont ISS, increase Lantus to 40 U/d 02/05 ( 5 U catch up dose given) . (4) CAD (coronary artery disease) Current Visit: No Status: Chronic Priority: Medium Code(s): I25.10 - ATHSCL HEART DISEASE OF [place] CORONARY ARTERY W/O ANG PCTRS SNOMED Code(s): 44529752 Comment: Asymptomatic, cont BB, statin Status and Disposition: Inpatient.
[2018-02-04 14:21] LABS: EGFR Non-African American 41.8 (>60)
[2018-02-04] MEDS: Atorvastatin* 20 MG TAB PO SCH (20:43)
[2018-02-04] MEDS: Baclofen TAB* 20 MG PO PRN (20:44)
[2018-02-05] MEDS: Furosemide IV* 100 MG in NS 0.9% 100 ML* 90 ML IV SCH ×3 (02:50→10:56)
[2018-02-05] MEDS: OXYMORPHONE 5 MG PO SCH ×2 (07:55→20:38)
[2018-02-05] MEDS: oxyCODONE TAB* 5 MG TAB PO PRN ×4 (07:55→17:39)
[2018-02-05] MEDS: Spironolactone TAB* 25 MG PO SCH (08:58)
[2018-02-05] MEDS: PANCRELIPASE 12000 UNIT PO SCH ×3 (08:58→17:39)
[2018-02-05] MEDS: Metoprolol Succinate XL TAB* 25 MG PO SCH (08:58)
[2018-02-05] MEDS: Cephalexin CAP* 500 MG PO SCH ×4 (08:58→20:38)
[2018-02-05] MEDS: Omeprazole CAP* 20 MG PO SCH (08:58)
[2018-02-05] MEDS: Insulin LISPRO* 1 UNITS UNIT SUBCUT SCH ×7 (09:01→22:11)
[2018-02-05] MEDS: Enoxaparin(*) 80 MG/0.8 ML SYR SUBCUT SCH (09:01)
[2018-02-05] MEDS: PROCHLORPERAZINE INJ 5 MG/ML 2 ML VIAL IV PRN (09:25)
[2018-02-05] MEDS: Insulin GLARGINE(*) 1 UNITS UNIT SUBCUT SCH (12:46)
--- NOTE | 2018-02-05 14:21 | PN ---
Work Excuse - Work Note Work Note: To whom it may concern, The above patient has been evaluated on 02/05/18. The physician has instructed the employee concerning further work as described below. The patient has admitted in our facility on 01/25/18 and due to his complicated course, still requires hospitalization stay at the writing of this note. The patient is unfortunately still too ill to be discharged. Sincerely, Chucho Mendoza MD [id number]
--- NOTE | 2018-02-05 16:42 | PN ---
Subjective Date of Service: 02/05/18 Interval History: Pt seen and examined. Meds and labs reviewed. RN paged me a few hours after pt was seen and evaluated, where an excuse letter for his scheduled court appearance today was requested. Letter written and given pt in [facility] letterhead. ROS: Denied NG/dizziness, F/C, N/V, CP, SOB, increased cough, sputum production , abd pain, diarrhea, constipation, dysuria, myalgias, arthralgias, throat pain , and new skin lesions. The rest of the 14 point ROS are unremarkable. PHYSICAL EXAM: GEN APPEARANCE: Awake, not in acute distress HEENT: NC/AT, PERRLA, moist oral mucosa, (-) throat erythema NECK: Soft, supple, (-) cervical LAD, (-)JVD HEART: S1S2 WNL, RRR, No MRG CHEST: CTA, BL, GAE, No W/R/R ABD: Soft, ND/NT, NABS 4x Q EXT: No C/C/RLE erythema, no warmth and tenderness, mild +1 edema SKIN: Warm to touch PSYCH: No active psychosis, hallucinations, depression, SI/HI Family History: Unchanged from Admission Social History: Unchanged from Admission Past Medical History: Unchanged from Admission Objective Active Medications: Acetaminophen (Tylenol Tab*) 650 mg PO Q4H PRN PRN Reason: FEVER/PAIN Atorvastatin Calcium (Lipitor*) 20 mg PO 2100 [facility] Last Admin: 02/04/18 20:43 Dose: 20 mg Baclofen (Lioresal Tab*) 20 mg PO TID PRN PRN Reason: hiccups Last Admin: 02/04/18 20:44 Dose: 20 mg Cephalexin HCl (Keflex Cap*) 500 mg PO QID [facility] Stop: 02/05/18 23:30 Last Admin: 02/05/18 12:45 Dose: 500 mg Dextrose (D50w Syringe 50 Ml*) 12.5 gm IV PUSH .FOR FS < 60 - SS PRN PRN Reason: FS < 60 Enoxaparin Sodium (Lovenox(*)) 80 mg SUBCUT Q24H [facility] Last Admin: 02/05/18 09:01 Dose: 80 mg Furosemide (Lasix Tab*) 40 mg PO DAILY [facility] Furosemide (Lasix Tab*) 20 mg PO QPM [facility] Heparin Sodium (Porcine) (Heparin Flush Port (Ivad)) 5 ml FLUSH DAILY [facility]; Protocol Last Admin: 02/05/18 09:02 Dose: 5 ml Insulin Glargine (Lantus(*)) 40 units SUBCUT Q24H [facility] Last Admin: 02/05/18 12:46 Dose: 40 units Insulin Human Lispro (Humalog*) 0 units SUBCUT ACHS [facility]; Protocol Last Admin: 02/05/18 12:46 Dose: 6 units Insulin Human Lispro (Humalog*) 0 units SUBCUT AC [facility]; Protocol Last Admin: 02/05/18 12:46 Dose: 5 units Metolazone (Zaroxolyn Tab*) 5 mg PO DAILY@0830 [facility] Metoprolol Succinate (Toprol Xl Tab*) 25 mg PO DAILY [facility] Last Admin: 02/05/18 08:58 Dose: 25 mg Omeprazole (Prilosec Cap*) 20 mg PO 0730 [facility] Last Admin: 02/05/18 08:58 Dose: 20 mg Ondansetron HCl (Zofran 40 Mg Vial*) 4 mg IV Q6H PRN PRN Reason: NAUSEA Last Admin: 01/31/18 05:25 Dose: 4 mg Oxycodone HCl (Roxycodone Tab*) 10 mg PO Q3H PRN PRN Reason: PAIN Last Admin: 02/05/18 14:12 Dose: 10 mg Oxymorphone HCl (Opana Er (Nf)) 10 mg PO BID [facility] Last Admin: 02/05/18 07:55 Dose: 10 mg Pancrelipase (Creon (Nf)) 12,000 units PO TID WITH MEALS [facility] Last Admin: 02/05/18 12:45 Dose: 12,000 units Prochlorperazine Edisylate (Compazine Inj*) 5 mg IV Q6H PRN PRN Reason: NAUSEA/VOMITING Last Admin: 02/05/18 09:25 Dose: 5 mg Spironolactone (Aldactone Tab*) 50 mg PO DAILY [facility] Last Admin: 02/05/18 08:58 Dose: 50 mg Vital Signs - 8 hr 02/05/18 02/05/18 02/05/18 10:48 11:01 13:54 Temperature 98.2 F Pulse Rate 92 Respiratory 20 18 18 Rate Blood Pressure 128/72 (mmHg) O2 Sat by Pulse 99 Oximetry 02/05/18 02/05/18 02/05/18 14:12 15:53 16:31 Temperature 97.8 F Pulse Rate 94 Respiratory 16 16 18 Rate Blood Pressure 126/83 (mmHg) O2 Sat by Pulse 100 Oximetry Oxygen Devices in Use Now: None Result Diagrams: 02/01/18 05:45 02/04/18 13:56 Additional Lab and Data: Lab Results 01/25/18 01/25/18 01/25/18 Range/Units 09:22 09:22 09:22 WBC 5.7 (3.5-10.8) 10^3/ul RBC 3.83 L (4.00-5.40) 10^6/ul Hgb 11.1 L (14.0-18.0) g/dl Hct 33 L (42-52) % MCV 86 (80-94) fL MCH 29 (27-31) pg MCHC 34 (31-36) g/dl RDW 18 H (10.5-15) % Plt Count 168 (150-450) 10^3/ul MPV 8.7 (7.4-10.4) um3 Neut % (Auto) 77.9 (38-83) % Lymph % (Auto) 9.1 L (25-47) % [place] % (Auto) 12.6 H (0-7) % Eos % (Auto) 0 (0-6) % Baso % (Auto) 0.4 (0-2) % Absolute Neuts (auto) 4.4 (1.5-7.7) 10^3/ul Absolute Lymphs (auto) 0.5 L (1.0-4.8) 10^3/ul Absolute Monos (auto) 0.7 (0-0.8) 10^3/ul Absolute Eos (auto) 0 (0-0.6) 10^3/ul Absolute Basos (auto) 0 (0-0.2) 10^3/ul Absolute Nucleated RBC 0 10^3/ul Nucleated RBC % 0 INR (Anticoag Therapy) (0.77-1.02) Sodium 140 (139-145) mmol/L Potassium 4.4 (3.5-5.0) mmol/L Chloride 111 (101-111) mmol/L Carbon Dioxide 20 L (22-32) mmol/L Anion Gap 9 (2-11) mmol/L BUN 33 H (6-24) mg/dL Creatinine 1.23 H (0.67-1.17) mg/dL Est GFR ( Amer) 76.4 (>60) Est GFR (Non-Af Amer) 59.4 (>60) BUN/Creatinine Ratio 26.8 H (8-20) Glucose 47 L* (70-100) mg/dL POC Glucose (mg/dL) (70-100) mg/dL Lactic Acid 3.9 H* (0.5-2.0) mmol/L Calcium 8.8 (8.6-10.3) mg/dL Total Bilirubin 0.50 (0.2-1.0) mg/dL AST 50 H (13-39) U/L ALT 50 (7-52) U/L Alkaline Phosphatase 179 H (34-104) U/L C-Reactive Protein 1.66 (< 5.00) mg/L Total Protein 5.6 L (6.4-8.9) g/dL Albumin 2.9 L (3.2-5.2) g/dL Globulin 2.7 (2-4) g/dL Albumin/Globulin Ratio 1.1 (1-3) Lipase 10 L (11.0-82.0) U/L 01/25/18 01/25/18 Range/Units 09:22 11:34 WBC (3.5-10.8) 10^3/ul RBC (4.00-5.40) 10^6/ul Hgb (14.0-18.0) g/dl Hct (42-52) % MCV (80-94) fL MCH (27-31) pg MCHC (31-36) g/dl RDW (10.5-15) % Plt Count (150-450) 10^3/ul MPV (7.4-10.4) um3 Neut % (Auto) (38-83) % Lymph % (Auto) (25-47) % [place] % (Auto) (0-7) % Eos % (Auto) (0-6) % Baso % (Auto) (0-2) % Absolute Neuts (auto) (1.5-7.7) 10^3/ul Absolute Lymphs (auto) (1.0-4.8) 10^3/ul Absolute Monos (auto) (0-0.8) 10^3/ul Absolute Eos (auto) (0-0.6) 10^3/ul Absolute Basos (auto) (0-0.2) 10^3/ul Absolute Nucleated RBC 10^3/ul Nucleated RBC % INR (Anticoag Therapy) 1.59 H (0.77-1.02) Sodium (139-145) mmol/L Potassium (3.5-5.0) mmol/L Chloride (101-111) mmol/L Carbon Dioxide (22-32) mmol/L Anion Gap (2-11) mmol/L BUN (6-24) mg/dL Creatinine (0.67-1.17) mg/dL Est GFR ( Amer) (>60) Est GFR (Non-Af Amer) (>60) BUN/Creatinine Ratio (8-20) Glucose (70-100) mg/dL POC Glucose (mg/dL) 144 H (70-100) mg/dL Lactic Acid (0.5-2.0) mmol/L Calcium (8.6-10.3) mg/dL Total Bilirubin (0.2-1.0) mg/dL AST (13-39) U/L ALT (7-52) U/L Alkaline Phosphatase (34-104) U/L C-Reactive Protein (< 5.00) mg/L Total Protein (6.4-8.9) g/dL Albumin (3.2-5.2) g/dL Globulin (2-4) g/dL Albumin/Globulin Ratio (1-3) Lipase (11.0-82.0) U/L Microbiology and Other Data: Microbiology 01/26/18 16:55 Gram Stain - Final Body Fluid - Peritoneal Assess/Plan/Problems-Billing Assessment: Mr. Weaver is a 62yo M with PMH of metastatic pancreatic CA, portal vein thrombosis, DM, diastolic CHF, CAD, HLD, HTN, asthma, GERD, who presented to ED with hypoglycemia, abdominal and back pain. - Patient Problems (1) Pancreatic cancer Current Visit: Yes Status: Acute Comment: -Continue current pain meds -Continue furosemide infusion, IV albumin, and spironolactone for ascites. Creat 1.80 02/03. Repeat BMP 02/04. (2) Portal vein thrombosis Current Visit: Yes Status: Acute Code(s): I81 - PORTAL VEIN THROMBOSIS SNOMED Code(s): 45690116 Comment: -Continue Lovenox qday given recent GIB and renal failure -Heme/Onc following and will defer -Awaiting Factor Xa level (3) Ascites Current Visit: Yes Status: Acute Code(s): R18.8 - OTHER ASCITES SNOMED Code(s): 609488636 Comment: -Likely due to portal HTN due to PV thrombosis and known pancreatic CA -Improved -Will D/C IV Lasix gtt and transition to BID Lasix and Metolazone for synergy -Continue Spirinolactone -Obtain labs in AM to see albumin and electrolyte levels are at since last time it was checked (4) Cellulitis Current Visit: Yes Status: Acute Code(s): L03.90 - CELLULITIS, UNSPECIFIED SNOMED Code(s): 226968701 Comment: - On abx for 10 day, however, will continue for 14 day therapy given persistent mild erythema -No tenderness nor warmth appreciated on exam (5) DM type 2 causing CKD stage 3 Current Visit: Yes Status: Acute Code(s): E11.22 - TYPE 2 DIABETES MELLITUS W DIABETIC CHRONIC KIDNEY DISEASE; N18.3 - CHRONIC KIDNEY DISEASE, STAGE 3 ( MODERATE) SNOMED Code(s): 95974383 Comment: -Cont ISS, increase Lantus to 40 U/d 02/05 ( 5 U catch up dose given). (6) CAD (coronary artery disease) Current Visit: No Status: Chronic Priority: Medium Code(s): I25.10 - ATHSCL HEART DISEASE OF [place] CORONARY ARTERY W/O ANG PCTRS SNOMED Code(s): 65938054 Comment: -Asymptomatic, cont BB, statin Status and Disposition: -For PT eval -Pt wants to go home and further discuss options of care with [facility] [place] [facility] Oncology team ; he mentions he has been given a poor prognosis with Oncology group in [place]
[2018-02-05] MEDS: Furosemide TAB* 20 MG PO SCH (17:39)
[2018-02-05] MEDS: Atorvastatin* 20 MG TAB PO SCH (20:38)
[2018-02-05] MEDS: HYDROmorphone INJ* 2 MG/ML CARPUJECT SYRINGE IV PRN (22:12)
[2018-02-06] MEDS: HYDROmorphone INJ* 2 MG/ML CARPUJECT SYRINGE IV PRN ×2 (04:10→06:42)
[2018-02-06 06:03] LABS: Hematocrit 22 % (42-52); Hemoglobin 7.3 g/dl (14.0-18.0); Mean Corpuscular HGB Conc 33 g/dl (31-36); Mean Corpuscular Hemoglobin 29 pg (27-31); Mean Corpuscular Volume 88 fL (80-94); Mean Platelet Volume 8.6 um3 (7.4-10.4); Platelet Count 90 10^3/ul (150-450); Red Cell Distribution Width 22 % (10.5-15); White Blood Count 3.2 10^3/ul (3.5-10.8)
[2018-02-06 06:20] LABS: EGFR Non-African American 38.3 (>60)
[2018-02-06] MEDS: PROCHLORPERAZINE INJ 5 MG/ML 2 ML VIAL IV PRN (06:42)
[2018-02-06] MEDS: PANCRELIPASE 12000 UNIT PO SCH ×3 (09:05→17:52)
[2018-02-06] MEDS: Insulin LISPRO* 1 UNITS UNIT SUBCUT SCH ×7 (09:06→20:56)
[2018-02-06] MEDS: Spironolactone TAB* 25 MG PO SCH (09:06)
[2018-02-06] MEDS: Metolazone TAB* 5 MG PO SCH (09:07)
[2018-02-06] MEDS: Metoprolol Succinate XL TAB* 25 MG PO SCH (09:07)
[2018-02-06] MEDS: Furosemide TAB* 40 MG PO SCH (09:07)
[2018-02-06] MEDS: Omeprazole CAP* 20 MG PO SCH (09:07)
[2018-02-06] MEDS ORDERED: Magnesium Sulfate 2 GM IV* 2 GM/50 ML BAG IVPB ONE (11:26)
[2018-02-06] MEDS: Enoxaparin(*) 80 MG/0.8 ML SYR SUBCUT SCH (12:57)
[2018-02-06] MEDS: DOXYcycline CAP(*) 100 MG PO SCH ×2 (12:58→21:34)
[2018-02-06] MEDS: Insulin GLARGINE(*) 1 UNITS UNIT SUBCUT SCH (12:58)
[2018-02-06] MEDS: Oxymorphone IR (NF) 5 MG TAB PO PRN ×2 (13:02→19:32)
[2018-02-06] MEDS ORDERED: Furosemide IV* 10 MG/ML VIAL (40 MG) IV ONE (14:00)
--- NOTE | 2018-02-06 14:48 | PN ---
Subjective Date of Service: 02/06/18 Interval History: Pt seen and examined. Meds and labs reviewed. ROS: Denied NG/dizziness, F/C, N/V, CP, SOB, increased cough, sputum production , abd pain, diarrhea, constipation, dysuria, myalgias, arthralgias, throat pain , and new skin lesions. The rest of the 14 point ROS are unremarkable. PHYSICAL EXAM: GEN APPEARANCE: Awake, not in acute distress HEENT: NC/AT, PERRLA, moist oral mucosa, (-) throat erythema NECK: Soft, supple, (-) cervical LAD, (-)JVD HEART: S1S2 WNL, RRR, No MRG CHEST: CTA, BL, GAE, No W/R/R ABD: Soft, ND/NT, NABS 4x Q EXT: No C/C/RLE erythema appears to be re-extending beyond drawn borders, no warmth and tenderness, mild +1 edema SKIN: Warm to touch PSYCH: No active psychosis, hallucinations, depression, SI/HI RECTAL: Brown stools on cloved finger; hemoccult test sent Family History: Unchanged from Admission Social History: Unchanged from Admission Past Medical History: Unchanged from Admission Objective Active Medications: Acetaminophen (Tylenol Tab*) 650 mg PO Q4H PRN PRN Reason: FEVER/PAIN Atorvastatin Calcium (Lipitor*) 20 mg PO 2100 [facility] Last Admin: 02/05/18 20:38 Dose: 20 mg Baclofen (Lioresal Tab*) 20 mg PO TID PRN PRN Reason: hiccups Last Admin: 02/04/18 20:44 Dose: 20 mg Dextrose (D50w Syringe 50 Ml*) 12.5 gm IV PUSH .FOR FS < 60 - SS PRN PRN Reason: FS < 60 Doxycycline Hyclate (Vibramycin Cap(*)) 100 mg PO BID [facility] Last Admin: 02/06/18 12:58 Dose: 100 mg Enoxaparin Sodium (Lovenox(*)) 80 mg SUBCUT Q24H [facility] Last Admin: 02/06/18 12:57 Dose: 80 mg Furosemide (Lasix Tab*) 40 mg PO DAILY [facility] Last Admin: 02/06/18 09:07 Dose: 40 mg Furosemide (Lasix Tab*) 20 mg PO QPM [facility] Last Admin: 02/05/18 17:39 Dose: 20 mg Heparin Sodium (Porcine) (Heparin Flush Port (Ivad)) 5 ml FLUSH DAILY [facility]; Protocol Last Admin: 02/06/18 09:07 Dose: Not Given Hydromorphone HCl (Dilaudid Inj*) 0.5 mg IV Q2H PRN PRN Reason: PAIN Last Admin: 02/06/18 06:42 Dose: 0.5 mg Insulin Glargine (Lantus(*)) 40 units SUBCUT Q24H [facility] Last Admin: 02/06/18 12:58 Dose: 40 units Insulin Human Lispro (Humalog*) 0 units SUBCUT ACHS [facility]; Protocol Last Admin: 02/06/18 12:58 Dose: 4 units Insulin Human Lispro (Humalog*) 0 units SUBCUT AC [facility]; Protocol Last Admin: 02/06/18 12:58 Dose: 6 units Metolazone (Zaroxolyn Tab*) 5 mg PO DAILY@0830 [facility] Last Admin: 02/06/18 09:07 Dose: 5 mg Metoprolol Succinate (Toprol Xl Tab*) 25 mg PO DAILY [facility] Last Admin: 02/06/18 09:07 Dose: 25 mg Omeprazole (Prilosec Cap*) 20 mg PO 0730 [facility] Last Admin: 02/06/18 09:07 Dose: 20 mg Ondansetron HCl (Zofran 40 Mg Vial*) 4 mg IV Q6H PRN PRN Reason: NAUSEA Last Admin: 01/31/18 05:25 Dose: 4 mg Oxymorphone HCl (Opana Ir (Nf)) 5 mg PO Q6H PRN PRN Reason: PAIN Last Admin: 02/06/18 13:02 Dose: 5 mg Pancrelipase (Creon (Nf)) 12,000 units PO TID WITH MEALS [facility] Last Admin: 02/06/18 13:02 Dose: 12,000 units Prochlorperazine Edisylate (Compazine Inj*) 5 mg IV Q6H PRN PRN Reason: NAUSEA/VOMITING Last Admin: 02/06/18 06:42 Dose: 5 mg Spironolactone (Aldactone Tab*) 50 mg PO DAILY [facility] Last Admin: 02/06/18 09:06 Dose: 50 mg Vital Signs - 8 hr 02/06/18 02/06/18 02/06/18 07:09 07:12 08:00 Temperature 99.4 F 99.4 F Pulse Rate 85 Respiratory 18 17 Rate Blood Pressure 120/66 (mmHg) O2 Sat by Pulse 100 Oximetry 02/06/18 02/06/18 12:19 13:02 Temperature Pulse Rate Respiratory 16 17 Rate Blood Pressure (mmHg) O2 Sat by Pulse Oximetry Oxygen Devices in Use Now: None Result Diagrams: 02/06/18 05:45 02/06/18 05:45 Additional Lab and Data: Lab Results 01/25/18 01/25/18 01/25/18 Range/Units 09:22 09:22 09:22 WBC 5.7 (3.5-10.8) 10^3/ul RBC 3.83 L (4.00-5.40) 10^6/ul Hgb 11.1 L (14.0-18.0) g/dl Hct 33 L (42-52) % MCV 86 (80-94) fL MCH 29 (27-31) pg MCHC 34 (31-36) g/dl RDW 18 H (10.5-15) % Plt Count 168 (150-450) 10^3/ul MPV 8.7 (7.4-10.4) um3 Neut % (Auto) 77.9 (38-83) % Lymph % (Auto) 9.1 L (25-47) % [place] % (Auto) 12.6 H (0-7) % Eos % (Auto) 0 (0-6) % Baso % (Auto) 0.4 (0-2) % Absolute Neuts (auto) 4.4 (1.5-7.7) 10^3/ul Absolute Lymphs (auto) 0.5 L (1.0-4.8) 10^3/ul Absolute Monos (auto) 0.7 (0-0.8) 10^3/ul Absolute Eos (auto) 0 (0-0.6) 10^3/ul Absolute Basos (auto) 0 (0-0.2) 10^3/ul Absolute Nucleated RBC 0 10^3/ul Nucleated RBC % 0 INR (Anticoag Therapy) (0.77-1.02) Sodium 140 (139-145) mmol/L Potassium 4.4 (3.5-5.0) mmol/L Chloride 111 (101-111) mmol/L Carbon Dioxide 20 L (22-32) mmol/L Anion Gap 9 (2-11) mmol/L BUN 33 H (6-24) mg/dL Creatinine 1.23 H (0.67-1.17) mg/dL Est GFR ( Amer) 76.4 (>60) Est GFR (Non-Af Amer) 59.4 (>60) BUN/Creatinine Ratio 26.8 H (8-20) Glucose 47 L* (70-100) mg/dL POC Glucose (mg/dL) (70-100) mg/dL Lactic Acid 3.9 H* (0.5-2.0) mmol/L Calcium 8.8 (8.6-10.3) mg/dL Total Bilirubin 0.50 (0.2-1.0) mg/dL AST 50 H (13-39) U/L ALT 50 (7-52) U/L Alkaline Phosphatase 179 H (34-104) U/L C-Reactive Protein 1.66 (< 5.00) mg/L Total Protein 5.6 L (6.4-8.9) g/dL Albumin 2.9 L (3.2-5.2) g/dL Globulin 2.7 (2-4) g/dL Albumin/Globulin Ratio 1.1 (1-3) Lipase 10 L (11.0-82.0) U/L 18 01/25/18 Range/Units 09:22 11:34 WBC (3.5-10.8) 10^3/ul RBC (4.00-5.40) 10^6/ul Hgb (14.0-18.0) g/dl Hct (42-52) % MCV (80-94) fL MCH (27-31) pg MCHC (31-36) g/dl RDW (10.5-15) % Plt Count (150-450) 10^3/ul MPV (7.4-10.4) um3 Neut % (Auto) (38-83) % Lymph % (Auto) (25-47) % [place] % (Auto) (0-7) % Eos % (Auto) (0-6) % Baso % (Auto) (0-2) % Absolute Neuts (auto) (1.5-7.7) 10^3/ul Absolute Lymphs (auto) (1.0-4.8) 10^3/ul Absolute Monos (auto) (0-0.8) 10^3/ul Absolute Eos (auto) (0-0.6) 10^3/ul Absolute Basos (auto) (0-0.2) 10^3/ul Absolute Nucleated RBC 10^3/ul Nucleated RBC % INR (Anticoag Therapy) 1.59 H (0.77-1.02) Sodium (139-145) mmol/L Potassium (3.5-5.0) mmol/L Chloride (101-111) mmol/L Carbon Dioxide (22-32) mmol/L Anion Gap (2-11) mmol/L BUN (6-24) mg/dL Creatinine (0.67-1.17) mg/dL Est GFR ( Amer) (>60) Est GFR (Non-Af Amer) (>60) BUN/Creatinine Ratio (8-20) Glucose (70-100) mg/dL POC Glucose (mg/dL) 144 H (70-100) mg/dL Lactic Acid (0.5-2.0) mmol/L Calcium (8.6-10.3) mg/dL Total Bilirubin (0.2-1.0) mg/dL AST (13-39) U/L ALT (7-52) U/L Alkaline Phosphatase (34-104) U/L C-Reactive Protein (< 5.00) mg/L Total Protein (6.4-8.9) g/dL Albumin (3.2-5.2) g/dL Globulin (2-4) g/dL Albumin/Globulin Ratio (1-3) Lipase (11.0-82.0) U/L Microbiology and Other Data: Microbiology 01/26/18 16:55 Gram Stain - Final Body Fluid - Peritoneal Assess/Plan/Problems-Billing Assessment: Mr. Weaver is a 62yo M with PMH of metastatic pancreatic CA, portal vein thrombosis, DM, diastolic CHF, CAD, HLD, HTN, asthma, GERD, who presented to ED with hypoglycemia, abdominal and back pain. - Patient Problems (1) Anemia Current Visit: Yes Status: Acute Code(s): D64.9 - ANEMIA, UNSPECIFIED SNOMED Code(s): 953470534 Comment: -Pt has mild pancytopenia likely due to history of pancreatic CA -Will transfuse pt with 1 unit PRBC, appropriately typed and crossed---risks and benefits explained to pt -Continue watchful waiting (2) Cellulitis Current Visit: Yes Status: Acute Code(s): L03.90 - CELLULITIS, UNSPECIFIED SNOMED Code(s): 779973165 Comment: - Cephalexin day 10 yesterday; however, will start Doxycycline given cellulitis appears to be more erythematous today and going over drawn borders (3) Portal vein thrombosis Current Visit: Yes Status: Acute Code(s): I81 - PORTAL VEIN THROMBOSIS SNOMED Code(s): 21051700 Comment: -Continue Lovenox qday given recent GIB and renal failurerectal exam despite H& H drop shows brown stools; mentioned he has had two bowel movements earlier that were brown as well -Heme/Onc following and will defer with adjustment - Factor Xa level yesterday is subtherapeiutic -Paged Dr. Gomez at the time of this notes writing and will defer further adjustments of anticoagulation given recent GIB (4) Pancreatic cancer Current Visit: Yes Status: Acute Comment: -Continue current pain meds -Continue furosemide infusion, IV albumin, and spironolactone for ascites. Creat 1.80 02/03. Repeat BMP 02/04. (5) Ascites Current Visit: Yes Status: Acute Code(s): R18.8 - OTHER ASCITES SNOMED Code(s): 091467079 Comment: -Likely due to portal HTN due to PV thrombosis and known pancreatic CA -Improved -Will D/C IV Lasix gtt and transition to BID Lasix and Metolazone for synergy -Continue Spirinolactone -Obtain labs in AM to see albumin and electrolyte levels are at since last time it was checked (6) DM type 2 causing CKD stage 3 Current Visit: Yes Status: Acute Code(s): E11.22 - TYPE 2 DIABETES MELLITUS W DIABETIC CHRONIC KIDNEY DISEASE; N18.3 - CHRONIC KIDNEY DISEASE, STAGE 3 ( MODERATE) SNOMED Code(s): 24594217 Comment: -Cont ISS, increase Lantus to 40 U/d 02/05 ( 5 U catch up dose given). (7) CAD (coronary artery disease) Current Visit: No Status: Chronic Priority: Medium Code(s): I25.10 - ATHSCL HEART DISEASE OF [place] CORONARY ARTERY W/O ANG PCTRS SNOMED Code(s): 66311198 Comment: -Asymptomatic, cont BB, statin Status and Disposition: -For PT eval -Pt wants to go home and further discuss options of care [place] [facility] [place] ; he mentions he has been given a poor prognosis with Oncology group in [place]
[2018-02-06] MEDS ORDERED: Enoxaparin(*) 80 MG/0.8 ML SYR SUBCUT SCH (15:00)
--- NOTE | 2018-02-06 17:39 | PN ---
Progress Note - Progress Note Date of Service: 02/06/18 SOAP: Subjective: [Good diuresis with Lasix drip, some improvement in symptoms.] Objective: [ Laboratory Results - last 24 hr 02/05/18 02/05/18 02/06/18 15:11 20:30 05:45 WBC 3.2 L RBC 2.50 L Hgb 7.3 L Hct 22 L MCV 88 MCH 29 MCHC 33 RDW 22 H Plt Count 90 L MPV 8.6 Heparin Anti-Xa Activ 0.46 Sodium Potassium Chloride Carbon Dioxide Anion Gap BUN Creatinine Est GFR ( Amer) Est GFR (Non-Af Amer) BUN/Creatinine Ratio Glucose POC Glucose (mg/dL) 198 H Calcium Phosphorus Magnesium Total Bilirubin AST ALT Alkaline Phosphatase Total Protein Albumin Globulin Albumin/Globulin Ratio Blood Type Antibody Screen Crossmatch 02/06/18 02/06/18 02/06/18 05:45 05:45 07:44 WBC RBC Hgb Hct MCV MCH MCHC RDW Plt Count MPV Heparin Anti-Xa Activ Sodium 134 L Potassium 4.0 Chloride 97 L Carbon Dioxide 29 Anion Gap 8 BUN 39 H Creatinine 1.80 H Est GFR ( Amer) 46.3 Est GFR (Non-Af Amer) 38.3 BUN/Creatinine Ratio 21.7 H Glucose 203 H POC Glucose (mg/dL) 221 H Calcium 8.5 L Phosphorus 4.2 Magnesium 1.4 L Total Bilirubin 0.70 AST 32 ALT 18 Alkaline Phosphatase 123 H Total Protein 5.2 L Albumin 3.3 Globulin 1.9 L Albumin/Globulin Ratio 1.7 Blood Type A Positive Antibody Screen Negative Crossmatch See Detail 02/06/18 02/06/18 12:16 17:12 WBC RBC Hgb Hct MCV MCH MCHC RDW Plt Count MPV Heparin Anti-Xa Activ Sodium Potassium Chloride Carbon Dioxide Anion Gap BUN Creatinine Est GFR ( Amer) Est GFR (Non-Af Amer) BUN/Creatinine Ratio Glucose POC Glucose (mg/dL) 234 H 231 H Calcium Phosphorus Magnesium Total Bilirubin AST ALT Alkaline Phosphatase Total Protein Albumin Globulin Albumin/Globulin Ratio Blood Type Antibody Screen Crossmatch Vital Signs Temp Pulse Resp BP Pulse Ox 98.6 F 88 16 127/73 100 02/06/18 15:50 02/06/18 15:50 02/06/18 15:50 02/06/18 15:50 02/06/18 15:50 Acetaminophen (Tylenol Tab*) 650 mg PO Q4H PRN PRN Reason: FEVER/PAIN Atorvastatin Calcium (Lipitor*) 20 mg PO 2100 [facility] Last Admin: 02/05/18 20:38 Dose: 20 mg Baclofen (Lioresal Tab*) 20 mg PO TID PRN PRN Reason: hiccups Last Admin: 02/04/18 20:44 Dose: 20 mg Dextrose (D50w Syringe 50 Ml*) 12.5 gm IV PUSH .FOR FS < 60 - SS PRN PRN Reason: FS < 60 Doxycycline Hyclate (Vibramycin Cap(*)) 100 mg PO BID [facility] Last Admin: 02/06/18 12:58 Dose: 100 mg Enoxaparin Sodium (Lovenox(*)) 80 mg SUBCUT 0100,1300 [facility] Furosemide (Lasix Tab*) 40 mg PO DAILY [facility] Last Admin: 02/06/18 09:07 Dose: 40 mg Furosemide (Lasix Tab*) 20 mg PO QPM [facility] Last Admin: 02/05/18 17:39 Dose: 20 mg Heparin Sodium (Porcine) (Heparin Flush Port (Ivad)) 5 ml FLUSH DAILY [facility]; Protocol Last Admin: 02/06/18 09:07 Dose: Not Given Hydromorphone HCl (Dilaudid Inj*) 0.5 mg IV Q2H PRN PRN Reason: PAIN Last Admin: 02/06/18 06:42 Dose: 0.5 mg Insulin Glargine (Lantus(*)) 40 units SUBCUT Q24H [facility] Last Admin: 02/06/18 12:58 Dose: 40 units Insulin Human Lispro (Humalog*) 0 units SUBCUT ACHS [facility]; Protocol Last Admin: 02/06/18 12:58 Dose: 4 units Insulin Human Lispro (Humalog*) 0 units SUBCUT AC [facility]; Protocol Last Admin: 02/06/18 12:58 Dose: 6 units Metolazone (Zaroxolyn Tab*) 5 mg PO DAILY@0830 [facility] Last Admin: 02/06/18 09:07 Dose: 5 mg Metoprolol Succinate (Toprol Xl Tab*) 25 mg PO DAILY [facility] Last Admin: 02/06/18 09:07 Dose: 25 mg Omeprazole (Prilosec Cap*) 20 mg PO 0730 [facility] Last Admin: 02/06/18 09:07 Dose: 20 mg Ondansetron HCl (Zofran 40 Mg Vial*) 4 mg IV Q6H PRN PRN Reason: NAUSEA Last Admin: 01/31/18 05:25 Dose: 4 mg Oxymorphone HCl (Opana Ir (Nf)) 5 mg PO Q6H PRN PRN Reason: PAIN Last Admin: 02/06/18 13:02 Dose: 5 mg Pancrelipase (Creon (Nf)) 12,000 units PO TID WITH MEALS [facility] Last Admin: 02/06/18 13:02 Dose: 12,000 units Prochlorperazine Edisylate (Compazine Inj*) 5 mg IV Q6H PRN PRN Reason: NAUSEA/VOMITING Last Admin: 02/06/18 06:42 Dose: 5 mg Spironolactone (Aldactone Tab*) 50 mg PO DAILY [facility] Last Admin: 02/06/18 09:06 Dose: 50 mg Exam: Gen: 62 yo male who appears slightly older than stated age in NAD HEENT: poor dentition, MMM CV: RRR, no m/r/g Resp: CTA, no w/c/r Abd: soft, nonTTP, +fluid wave Ext: 1+ LE edema bilaterally, CARSON wraps in place Skin: Mild erythema of RLE] Assessment: [62 yo male with metastatic pancreatic CA followed by outside oncologist who has been hospitalized on multiple occasions with 2 cycles of FOLFIRINOX. He is now hospitalized with evidence of lower GI bleed, hypoglycemia and worsening ascites. ] Plan: [1. Lower GI bleed - resolved - resumed Lovenox 2. Portal vein thrombosis - resumed Lovenox, , level from yesterday is subtherapeutic - recommend increasing to 100 mg qd 3. Metastatic pancreatic CA with ascites - good response to Lasix drip 4. Diabetes - initially hypoglycemic and now hyperglycemic - insulin titration per hospitalist group Dispo: follow up with Dr Marie following discharge, will add appointment time to discharge packet]
[2018-02-06] MEDS: Furosemide TAB* 20 MG PO SCH (17:52)
[2018-02-06] MEDS: Ondansetron 40 MG VIAL* 2 MG/ML 20 ML VIAL IV PRN (20:44)
[2018-02-06] MEDS: Atorvastatin* 20 MG TAB PO SCH (21:34)
[2018-02-07] MEDS: Enoxaparin(*) 80 MG/0.8 ML SYR SUBCUT SCH ×2 (01:27→13:31)
[2018-02-07] MEDS: Oxymorphone IR (NF) 5 MG TAB PO PRN ×2 (01:27→08:58)
[2018-02-07] MEDS: DOXYcycline CAP(*) 100 MG PO SCH (08:12)
[2018-02-07] MEDS: Metolazone TAB* 5 MG PO SCH (08:12)
[2018-02-07] MEDS: Omeprazole CAP* 20 MG PO SCH (08:13)
[2018-02-07] MEDS: Spironolactone TAB* 25 MG PO SCH (08:13)
[2018-02-07] MEDS: Metoprolol Succinate XL TAB* 25 MG PO SCH (08:13)
[2018-02-07] MEDS: PANCRELIPASE 12000 UNIT PO SCH ×2 (08:13→12:22)
[2018-02-07] MEDS: Insulin LISPRO* 1 UNITS UNIT SUBCUT SCH ×4 (08:57→13:33)
[2018-02-07] MEDS: Furosemide TAB* 40 MG PO SCH (08:58)
--- NOTE | 2018-02-07 09:27 | PN ---
Progress Note - Progress Note Date of Service: 02/07/18 SOAP: Subjective: feeling much better. feels like he has diuresed a lot. ready to go home and hopefully that he does not come back in. wants to see me as an outpatient to discuss further chemotherapy. Objective: Vital Signs Temp Pulse Resp BP Pulse Ox 97.3 F 82 18 116/64 95 02/07/18 07:21 02/07/18 07:21 02/07/18 08:58 02/07/18 07:21 02/07/18 07:21 perr eomi op moist cta bl s1s2 nl obese, rotund, +fluid wave 2+ LE edema A+Ox3 Acetaminophen (Tylenol Tab*) 650 mg PO Q4H PRN PRN Reason: FEVER/PAIN Last Admin: 02/06/18 23:20 Dose: 650 mg Atorvastatin Calcium (Lipitor*) 20 mg PO 2100 [facility] Last Admin: 02/06/18 21:34 Dose: 20 mg Baclofen (Lioresal Tab*) 20 mg PO TID PRN PRN Reason: hiccups Last Admin: 02/04/18 20:44 Dose: 20 mg Dextrose (D50w Syringe 50 Ml*) 12.5 gm IV PUSH .FOR FS < 60 - SS PRN PRN Reason: FS < 60 Doxycycline Hyclate (Vibramycin Cap(*)) 100 mg PO BID [facility] Last Admin: 02/07/18 08:12 Dose: 100 mg Enoxaparin Sodium (Lovenox(*)) 80 mg SUBCUT 0100,1300 [facility] Last Admin: 02/07/18 01:27 Dose: 80 mg Furosemide (Lasix Tab*) 40 mg PO DAILY [facility] Last Admin: 02/07/18 08:58 Dose: 40 mg Furosemide (Lasix Tab*) 20 mg PO QPM [facility] Last Admin: 02/06/18 17:52 Dose: 20 mg Heparin Sodium (Porcine) (Heparin Flush Port (Ivad)) 5 ml FLUSH DAILY [facility]; Protocol Last Admin: 02/06/18 18:30 Dose: 5 ml Hydromorphone HCl (Dilaudid Inj*) 0.5 mg IV Q2H PRN PRN Reason: PAIN Last Admin: 02/06/18 06:42 Dose: 0.5 mg Insulin Glargine (Lantus(*)) 40 units SUBCUT Q24H [facility] Last Admin: 02/06/18 12:58 Dose: 40 units Insulin Human Lispro (Humalog*) 0 units SUBCUT ACHS [facility]; Protocol Last Admin: 02/07/18 08:57 Dose: 6 units Insulin Human Lispro (Humalog*) 0 units SUBCUT AC [facility]; Protocol Last Admin: 02/07/18 08:57 Dose: 4 units Metolazone (Zaroxolyn Tab*) 5 mg PO DAILY@0830 [facility] Last Admin: 02/07/18 08:12 Dose: 5 mg Metoprolol Succinate (Toprol Xl Tab*) 25 mg PO DAILY [facility] Last Admin: 02/07/18 08:13 Dose: 25 mg Omeprazole (Prilosec Cap*) 20 mg PO 0730 [facility] Last Admin: 02/07/18 08:13 Dose: 20 mg Ondansetron HCl (Zofran 40 Mg Vial*) 4 mg IV Q6H PRN PRN Reason: NAUSEA Last Admin: 02/06/18 20:44 Dose: 4 mg Oxymorphone HCl (Opana Ir (Nf)) 5 mg PO Q6H PRN PRN Reason: PAIN Last Admin: 02/07/18 08:58 Dose: 5 mg Pancrelipase (Creon (Nf)) 12,000 units PO TID WITH MEALS [facility] Last Admin: 02/07/18 08:13 Dose: 12,000 units Prochlorperazine Edisylate (Compazine Inj*) 5 mg IV Q6H PRN PRN Reason: NAUSEA/VOMITING Last Admin: 02/06/18 06:42 Dose: 5 mg Spironolactone (Aldactone Tab*) 50 mg PO DAILY [facility] Last Admin: 02/07/18 08:13 Dose: 50 mg Assessment: 62 yo M w metastatic pancreatic CA on palliative FOLFIRINOX admitted with increasing abdominal pain, hypoglycemia and lower GI bleed in the setting of likely supratherapeutic INR. He has diuresed nicely and is likely stable for discharge. He is requesting fu with me as an outpatient to discuss the appropriateness of further palliative chemotherapy. Plan: -lovenox 80 mg bid, will check level on fu -fu with me 02/21 at 250 pm, main office -cont PO diuretics -no oral diabetes meds, lantus and insulin only
[2018-02-07 10:58] LABS: ABS Basophils 0.1 10^3/ul (0-0.2); ABS Eosinophils 0 10^3/ul (0-0.6); ABS Lymphocytes 0.5 10^3/ul (1.0-4.8); ABS Monocytes 0.7 10^3/ul (0-0.8); ABS Neutrophils 2.4 10^3/ul (1.5-7.7); ABS Nucleated RBC 0 10^3/ul; Eosinophil % 0.6 % (0-6); Hematocrit 24 % (42-52); Hemoglobin 8.2 g/dl (14.0-18.0); Lymphocyte % 13.6 % (25-47); Mean Corpuscular HGB Conc 35 g/dl (31-36); Mean Corpuscular Hemoglobin 30 pg (27-31); Mean Corpuscular Volume 86 fL (80-94); Mean Platelet Volume 8.8 um3 (7.4-10.4); Nucleated Red Blood Cells % 0; Platelet Count 86 10^3/ul (150-450); Red Blood Count 2.77 10^6/ul (4.00-5.40); Red Cell Distribution Width 20 % (10.5-15); White Blood Count 3.6 10^3/ul (3.5-10.8)
[2018-02-07 11:12] LABS: EGFR Non-African American 36.6 (>60)
[2018-02-07] MEDS ORDERED: Magnesium Sulfate 2 GM IV* 2 GM/50 ML BAG IVPB ONE (12:02)
[2018-02-07] MEDS: Insulin GLARGINE(*) 1 UNITS UNIT SUBCUT SCH (13:33)
[2018-02-07] MEDS: Ondansetron 40 MG VIAL* 2 MG/ML 20 ML VIAL IV PRN (13:44)
[2018-02-07 16:04] VITALS: BP 111/65
--- NOTE | 2018-02-08 07:15 | DS ---
CC: Dr. Navarro; Antonino Perez MD; Darron Gomez MD; Quinton Conklin MD; Andre Lerma MD; Kvng Yanez MD; Dr. Marie * DISCHARGE SUMMARY: DATE OF ADMISSION: DATE OF DISCHARGE: 02/07/18 DISCHARGE DIAGNOSES: As follows: 1. Anemia, iron studies sent and are currently pending, likely with component of anemia of chronic disease given his history of pancreatic cancer. 2. Cellulitis of the right lower extremity, improved. 3. Portal vein thrombosis in the setting of pancreatic cancer. 4. Ascites likely secondary to above. 5. 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 6. History of coronary artery disease. DISCHARGE MEDICATIONS: As follows: 1. Tylenol 650 p.o. q.4 p.r.n. 2. Baclofen 20 mg p.o. t.i.d. p.r.n. 3. Doxycycline 100 mg p.o. b.i.d. for 7 days. 4. Lovenox 80 mg subcu b.i.d. 5. Furosemide 20 mg p.o. q.p.m. and 40 mg p.o. q.a.m. 6. Insulin glargine 40 units subcu q.24 hours. 7. Insulin lispro 8 to 10 units subcu q.a.c. to resume his home dose. 8. Acidophilus and bulgaricus (Floranex tablet 1 tablet p.o. daily for 10 days) . 9. Metolazone 5 mg p.o. daily. 10. Metoprolol succinate 25 mg p.o. daily. 11. Omeprazole 20 mg p.o. daily. 12. Oxymorphone 5 mg p.o. q.6 p.r.n. for 3 days and we will defer any subsequent re-prescriptions and refills with PCP. 13. Pancrelipase 12,000 units 2 caps p.o. t.i.d. with meals. 14. Simvastatin 40 mg p.o. daily. 15. Spironolactone 50 mg p.o. daily. HISTORY OF PRESENT ILLNESS/HOSPITAL COURSE: The patient is a 62-year-old gentleman with a history of diabetes, CHF, and CAD as well as hyperlipidemia, who presented to our facility on 01/25/18 with a chief complaint of abdominal pain, blood in the stools, and some shivering. He was subsequently diagnosed with portal vein thrombosis, which was then treated with anticoagulation on Lovenox; however, he did have a lower GI bleed likely due to hemorrhoids and lead to decreasing of the frequency of his Lovenox to daily. Factor Xa has then been sent and unfortunately upon decrease of the Lovenox, he was found to have a subtherapeutic level. This was then discussed with Dr. Gomez who mentioned that the patient should be placed back on BID dosing at lowered dose from previous to 80 mg b.i.d. instead. He has done well since this change. Of note, the patient has also been on IV Lasix drip for many days. He was subsequently transitioned to p.o. b.i.d. dosing of Lasix as described above with added metolazone for synergy and he has done well with this too. Furthermore, he had been advised to go on a low salt diet less than 2 g per day to avoid and/or mitigate subsequent reaccumulation of ascitic fluid likely due to his advanced pancreatic cancer. During this hospital stay, he mentioned that he had been previously given a poor prognosis by his oncologists in [place] and would like to seek a second opinion and since he has already been seen by Dr. Marie and Dr. Gomez's group, he will follow up with them in the outpatient to discuss any further options and/or palliative care, etc., and will defer. The patient had been advised to follow up with his PCP or call his PCP within 3 days post discharge and to schedule an appointment [facility]. He was also advised to follow up with Dr. Marie's group on 02/21/18 at 2:50 p.m. main office and to call [phone] to discuss any further options and to confirm his schedule. In the event that he finds himself sick, he was advised to contact his PCP first ; however, if he or she is unable to evaluate him in a timely manner, to call [facility]. I advised the patient to call my office for any questions or clarifications regarding his discharge order and/or his prescriptions. Otherwise, we will defer any other issues with either PCP and/ or [facility]. He was advised to take his medications as prescribed. PHYSICAL EXAMINATION: Reveals the most recent vital signs of records with blood pressure of 111/65, temperature 98.2 degrees Fahrenheit, 79 beats per minute heart rate, 12 per minute respiratory rate, saturating at 98% on room air. General Appearance: The patient is awake, alert, and oriented x3, not in acute distress. HEENT: Normocephalic, atraumatic. PERRLA. Extraocular muscles intact. Negative for icterus. Moist oral mucosa. Negative throat erythema. Neck is soft, supple with no cervical lymphadenopathy. No JVD. Heart: S1, S2 within normal limits. Regular rate and rhythm. No murmurs, rubs , and gallops. Chest: Clear to auscultation bilaterally. Good air entry. No wheezes, rales, or rhonchi. Abdomen is soft, nondistended, nontender. Normoactive bowel sounds x4. Extremities: No cyanosis, clubbing with 1+ bilateral lower extremity edema, right lower extremity erythema, slightly improved from yesterday. Psychiatric: No active psychosis, depression, suicidal nor homicidal ideations. Skin is warm to touch. TIME SPENT: The total time spent evaluating the patient, reviewing pertinent data, and appropriate documentation is greater than 30 minutes. [id number]/CPS #: [id number] [facility]
== END 2018-02-07 16:30 | disposition home health service (06) | DRG 281 ==
LOC: ED 08:13 → MED 12:42 → EEVIPCON 01-26 10:02 → OBSVTOIN 01-26 10:02 → MED 01-31 13:53
PROVIDERS: ADMIT Internal Medicine; ATTEND Student in an Organized Health Care Education/Training Program
PROC: 0W9G3ZZ Drainage of Peritoneal Cavity, Percutaneous Approach (ICD-10-PCS; principal; 2018-01-26 16:00)
PROC: 3E1H88Z Irrigation of Lower GI using Irrigating Substance, Via Natural or Artificial Opening Endoscopic (ICD-10-PCS; 2018-01-30)
PROC: 30233N1 Transfusion of Nonautologous Red Blood Cells into Peripheral Vein, Percutaneous Approach (ICD-10-PCS; 2018-02-06)
DX: C25.9 Malignant neoplasm of pancreas, unspecified (principal); I81 Portal vein thrombosis; R18.8 Other ascites; K92.1 Melena; K76.6 Portal hypertension; I13.0 Hypertensive heart and chronic kidney disease with heart failure and stage 1 through stage 4 chronic kidney disease, or unspecified chronic kidney disease; N17.9 Acute kidney failure, unspecified; I50.32 Chronic diastolic (congestive) heart failure; C78.6 Secondary malignant neoplasm of retroperitoneum and peritoneum; E87.2 Acidosis; D61.818 Other pancytopenia; L03.115 Cellulitis of right lower limb; K64.8 Other hemorrhoids; D63.1 Anemia in chronic kidney disease; E11.649 Type 2 diabetes mellitus with hypoglycemia without coma; E11.22 Type 2 diabetes mellitus with diabetic chronic kidney disease; I25.10 Atherosclerotic heart disease of native coronary artery without angina pectoris; E78.00 Pure hypercholesterolemia, unspecified; J45.909 Unspecified asthma, uncomplicated; K21.9 Gastro-esophageal reflux disease without esophagitis; F40.240 Claustrophobia; F12.90 Cannabis use, unspecified, uncomplicated; Z66 Do not resuscitate; M54.5 Low back pain; K57.30 Diverticulosis of large intestine without perforation or abscess without bleeding; I86.8 Varicose veins of other specified sites; N18.3 Chronic kidney disease, stage 3 (moderate); E11.21 Type 2 diabetes mellitus with diabetic nephropathy; Z79.4 Long term (current) use of insulin; E11.65 Type 2 diabetes mellitus with hyperglycemia; Z85.028 Personal history of other malignant neoplasm of stomach; Z88.8 Allergy status to other drugs, medicaments and biological substances; Z92.21 Personal history of antineoplastic chemotherapy; Z87.891 Personal history of nicotine dependence; Z82.49 Family history of ischemic heart disease and other diseases of the circulatory system; Z83.3 Family history of diabetes mellitus; Z87.442 Personal history of urinary calculi
CPT/HCPCS: 36415; 49082; 71046; 76705; 80048; 80053; 81003; 82270; 82272; 82436; 82728; 82945; 82947; 83540; 83550; 83605; 83615; 83690; 83735; 84100; 84133; 84157; 84300; 85014; 85018; 85025; 85027; 85520; 85610; 86140; 86301; 86850; 86900; 86901; 86922; 87040; 87070; 87205; 88112; 89051; 99232; 99233; 99284; A9270-GY; G8978-GP-CI; G8979-GP-CH; J0690; J0780; J1170; J1642; J1650; J1940; J2250; J2270; J2543; J3010; J3475; P9040; P9047

== ENCOUNTER 2018-02-10 18:07 | Emergency (ER) | payer MEDICAID ==
[2018-02-10] MEDS ORDERED: NS 0.9% 1000 ML* 1,000 ML IV ONE (18:54)
[2018-02-10 19:42] LABS: ABS Basophils 0.1 10^3/ul (0-0.2); ABS Eosinophils 0.1 10^3/ul (0-0.6); ABS Monocytes 1.3 10^3/ul (0-0.8); ABS Neutrophils 5.3 10^3/ul (1.5-7.7); ABS Nucleated RBC 0 10^3/ul; Eosinophil % 1.6 % (0-6); Hematocrit 26 % (42-52); Hemoglobin 8.6 g/dl (14.0-18.0); Lymphocyte % 12.5 % (25-47); Mean Corpuscular HGB Conc 33 g/dl (31-36); Mean Corpuscular Hemoglobin 28 pg (27-31); Mean Corpuscular Volume 87 fL (80-94); Mean Platelet Volume 9.1 um3 (7.4-10.4); Nucleated Red Blood Cells % 0; Platelet Count 118 10^3/ul (150-450); Red Blood Count 3.04 10^6/ul (4.00-5.40); Red Cell Distribution Width 20 % (10.5-15); White Blood Count 7.7 10^3/ul (3.5-10.8)
[2018-02-10 19:47] LABS: INR 1.12 (0.77-1.02)
--- NOTE | 2018-02-10 19:48 | RAD ---
Indication: Sepsis. 2 views of the chest are reviewed and compared to previous exam dated January 25, 2018. No mediastinal shift is noted. Central line is in place. No pneumothorax is noted. Minimal scarring and atelectasis in the left lung base. No alveolar consolidation noted. IMPRESSION: Linear scarring left lung base without definite pneumonia.
[2018-02-10] MEDS ORDERED: Ondansetron INJ* 2 MG/ML VIAL IV ONE (19:53)
[2018-02-10] MEDS ORDERED: Ondansetron INJ* 2 MG/ML VIAL ONE (19:54)
[2018-02-10 20:10] LABS: EGFR Non-African American 32.6 (>60)
[2018-02-10] MEDS ORDERED: Pantoprazole IV* 40 MG IV ONE (21:33)
--- NOTE | 2018-02-10 22:17 | ED ---
Nader Matos Natalie, scribed for Antonino Perez MD on 02/10/18 at 1853 . Neurological HPI - HPI Summary HPI Summary: The patient is a 62 y/o M presenting to [facility] c/o generalized weakness, confusion, and disorientation since yesterday after ripping toenail off when it got stuck in a blanket. The pain is rated 4/10 in severity. He's also been lethargic, and he reports that he has been constantly sleeping. He states that he "doesn't know what he is doing." He denies a loss of appetite. The pt was a recent admit to [facility] for pancreatic cancer. He sees Dr. Marie for his chemotherapy, which he is not currently getting. His PCP is Dr. Yanez. - History of Current Complaint Chief Complaint: EDWeakness Stated Complaint: GENERAL ILLNESS Time Seen by Provider: 02/10/18 18:29 Hx Obtained From: Patient Onset/Duration: Sudden Onset, Started days ago, Still Present Timing: Sudden Onset Onset Severity: Moderate Current Severity: Moderate Pain Intensity: 0 Pain Scale Used: 0-10 Numeric Character: Weak, Confusion, Lethargy - Additional Pertinent History Primary Care Physician: [id number] - Allergy/Home Medications Allergies/Adverse Reactions: Allergies Allergy/AdvReac Type Severity Reaction Status Date / Time celecoxib [From Celebrex] Allergy Intermediate Swelling Verified 01/01/18 22:29 pregabalin [From Lyrica] Allergy Intermediate Swelling Verified 01/01/18 22:29 quinine Allergy Intermediate Swelling Verified 01/01/18 22:29 Home Medications: Home Medications Magnesium Oxide [Magnesium] 400 mg PO DAILY 02/10/18 [History Confirmed 02/10/18 ] PMH/Surg Hx/FS Hx/Imm Hx Endocrine/Hematology History: Reports: Hx Diabetes - TYPE 2 Cardiovascular History: Reports: Hx Congestive Heart Failure, Hx Coronary Artery Disease, Hx Hypercholesterolemia, Hx Hypertension - ON MEDS Respiratory History: Reports: Hx Asthma GI History: Reports: Hx Gastroesophageal Reflux Disease, Hx Jaundice - 1960s History: Reports: Hx Kidney Stones, Other Problems/Disorders - kidney doc says kidney fine but pees brown Denies: Hx Renal Disease Musculoskeletal History: Reports: Hx Back Problems - low back pain Sensory History: Reports: Hx Contacts or Glasses - reading glasses at home Denies: Hx Hearing Aid Opthamlomology History: Reports: Hx Contacts or Glasses - reading glasses at home Psychiatric History: Reports: Other Psychiatric Issues/Disorders - claustrophobic - Cancer History Cancer Type, Location and Year: Pancreatic, Diagnosed in December 2015. Stomach Hx Chemotherapy: Yes - Surgical History Surgery Procedure, Year, and Place: back surgery; Right Knee Surgery March 30, 2012, cardiac cath with stents, [facility] PROCEDURE Hx Anesthesia Reactions: No Infectious Disease History: No Infectious Disease History: Denies: Traveled Outside the [place] in Last 30 Days - Family History Known Family History: Positive: Cardiac Disease - Father - [place], Diabetes - Mother - [place] - Social History Alcohol Use: None Hx Substance Use: No Substance Use Type: Reports: None Substance Use Comment - Amount & Last Used: oxycontin and nucynta Hx Tobacco Use: Yes Smoking Status (MU): Former Smoker Type: Cigarettes Amount Used/How Often: 1 can a week Have You Smoked in the Last Year: No Review of Systems Positive: Other - lethargic Gastrointestinal: Negative - loss of appetite Neurological: Other - confusion, disoriented Positive: Weakness All Other Systems Reviewed And Are Negative: Yes Physical Exam - Summary Physical Exam Summary: Appearance: The patient is well-nourished in no acute distress and in no acute pain. Skin: The skin is warm and dry and skin color reflects adequate perfusion. HEENT: The head is normocephalic and atraumatic. The pupils are equal and reactive. The conjunctivae are clear and without drainage. Nares are patent and without drainage. Mouth reveals moist mucous membranes and the throat is without erythema and exudate. The external ears are intact. The ear canals are patent and without drainage. The tympanic membranes are intact. Neck: The neck is supple with full range of motion and non-tender. There are no carotid bruits. There is no neck vein distension. Respiratory: Chest is non-tender. Lungs are clear to auscultation and breath sounds are symmetrical and equal. Cardiovascular: Heart is regular rate and rhythm. There is no murmur or rub auscultated. There is no peripheral edema and pulses are symmetrical and equal. Abdomen: The abdomen is soft and non-tender. There are normal bowel sounds heard in all four quadrants and there is no organomegaly palpated. Musculoskeletal: There is no back tenderness noted. Extremities are non-tender with full range of motion. There is good capillary refill. There is no peripheral edema or calf tenderness elicited. Neurological: Patient is alert and oriented to person, place and time but seems confused. The patient has symmetrical motor strength in all four extremities. Cranial nerves are grossly intact. Deep tendon reflexes are symmetrical and equal in all four extremities. There is no focal neurological deficit noted on exam. Psychiatric: The patient has an appropriate affect and does not exhibit any anxiety or depression. Triage Information Reviewed: Yes Vital Signs On Initial Exam: Initial Vitals Temp Pulse Resp BP Pulse Ox 98.1 F 112 20 126/88 96 02/10/18 18:10 02/10/18 18:10 02/10/18 18:10 02/10/18 18:10 02/10/18 18:10 Vital Signs Reviewed: Yes Diagnostics - Vital Signs Vital Signs Temp Pulse Resp BP Pulse Ox 02/10/18 18:10 98.1 F 112 20 126/88 96 - Laboratory Lab Results: Lab Results 02/10/18 02/10/18 02/10/18 Range/Units 19:32 19:32 19:32 WBC 7.7 (3.5-10.8) 10^3/ul RBC 3.04 L (4.00-5.40) 10^6/ul Hgb 8.6 L (14.0-18.0) g/dl Hct 26 L (42-52) % MCV 87 (80-94) fL MCH 28 (27-31) pg MCHC 33 (31-36) g/dl RDW 20 H (10.5-15) % Plt Count 118 L (150-450) 10^3/ul MPV 9.1 (7.4-10.4) um3 Neut % (Auto) 68.8 (38-83) % Lymph % (Auto) 12.5 L (25-47) % Crook % (Auto) 16.4 H (0-7) % Eos % (Auto) 1.6 (0-6) % Baso % (Auto) 0.7 (0-2) % Absolute Neuts (auto) 5.3 (1.5-7.7) 10^3/ul Absolute Lymphs (auto) 1.0 (1.0-4.8) 10^3/ul Absolute Monos (auto) 1.3 H (0-0.8) 10^3/ul Absolute Eos (auto) 0.1 (0-0.6) 10^3/ul Absolute Basos (auto) 0.1 (0-0.2) 10^3/ul Absolute Nucleated RBC 0 10^3/ul Nucleated RBC % 0 INR (Anticoag Therapy) 1.12 H (0.77-1.02) Sodium 135 (135-145) mmol/L Potassium 4.6 (3.5-5.0) mmol/L Chloride 98 L (101-111) mmol/L Carbon Dioxide 27 (22-32) mmol/L Anion Gap 10 (2-11) mmol/L BUN 37 H (6-24) mg/dL Creatinine 2.07 H (0.67-1.17) mg/dL Est GFR ( Amer) 39.4 (>60) Est GFR (Non-Af Amer) 32.6 (>60) BUN/Creatinine Ratio 17.9 (8-20) Glucose 396 H (70-100) mg/dL Lactic Acid (0.5-2.0) mmol/L Calcium 9.1 (8.6-10.3) mg/dL Total Bilirubin 0.80 (0.2-1.0) mg/dL AST 22 (13-39) U/L ALT 17 (7-52) U/L Alkaline Phosphatase 115 H (34-104) U/L Troponin I 0.03 (<0.04) ng/mL C-Reactive Protein 1.66 (<8.01) mg/L Total Protein 6.1 L (6.4-8.9) g/dL Albumin 3.4 (3.2-5.2) g/dL Globulin 2.7 (2-4) g/dL Albumin/Globulin Ratio 1.3 (1-3) 02/10/18 Range/Units 19:32 WBC (3.5-10.8) 10^3/ul RBC (4.00-5.40) 10^6/ul Hgb (14.0-18.0) g/dl Hct (42-52) % MCV (80-94) fL MCH (27-31) pg MCHC (31-36) g/dl RDW (10.5-15) % Plt Count (150-450) 10^3/ul MPV (7.4-10.4) um3 Neut % (Auto) (38-83) % Lymph % (Auto) (25-47) % Crook % (Auto) (0-7) % Eos % (Auto) (0-6) % Baso % (Auto) (0-2) % Absolute Neuts (auto) (1.5-7.7) 10^3/ul Absolute Lymphs (auto) (1.0-4.8) 10^3/ul Absolute Monos (auto) (0-0.8) 10^3/ul Absolute Eos (auto) (0-0.6) 10^3/ul Absolute Basos (auto) (0-0.2) 10^3/ul Absolute Nucleated RBC 10^3/ul Nucleated RBC % INR (Anticoag Therapy) (0.77-1.02) Sodium (135-145) mmol/L Potassium (3.5-5.0) mmol/L Chloride (101-111) mmol/L Carbon Dioxide (22-32) mmol/L Anion Gap (2-11) mmol/L BUN (6-24) mg/dL Creatinine (0.67-1.17) mg/dL Est GFR ( Amer) (>60) Est GFR (Non-Af Amer) (>60) BUN/Creatinine Ratio (8-20) Glucose (70-100) mg/dL Lactic Acid 1.8 (0.5-2.0) mmol/L Calcium (8.6-10.3) mg/dL Total Bilirubin (0.2-1.0) mg/dL AST (13-39) U/L ALT (7-52) U/L Alkaline Phosphatase (34-104) U/L Troponin I (<0.04) ng/mL C-Reactive Protein (<8.01) mg/L Total Protein (6.4-8.9) g/dL Albumin (3.2-5.2) g/dL Globulin (2-4) g/dL Albumin/Globulin Ratio (1-3) Result Diagrams: 02/10/18 19:32 02/10/18 19:32 Lab Statement: Any lab studies that have been ordered have been reviewed, and results considered in the medical decision making process. - Radiology CXR Xray Interpretation: Positive (See Comments) - Linear scarring left lung base without definite pneumonia. ED physician has reviewed this report. Radiology Interpretation Completed By: Radiologist Re-Evaluation - Re-Evaluation First Eval Re-Evaluation Time: 21:30 Change: Worse Comment: The pt is having a GI bleed upon re-evaluation. Course/Dx - Course Course Of Treatment: Mr. Weaver presented by ambulance for vague weakness. He was found to be in his trailer with no air conditioning and EMS estimated the temperature was well over 100. He was just discharged from the hospital yesterday for neutropenic fever. He did not have any specific complaint but just stated that he did not feel well and he was pale in appearance. His initial laboratory work was on par with his normal. His hemoglobin was 8.6 and his white count was about 7. He needed to move his bowels and passed a large amount of melenous stool. His BUNs and creatinine are normally elevated and today were consistent with his normal. He was given a dose of Protonix although I do not believe this is an upper GI bleed. He will require transfer as we do not have GI construction producer today and [facility] was contacted and Dr. Li accepted transfer. He remained stable here in the emergency department. - Diagnoses Provider Diagnoses: GI bleed - Physician Notifications Discussed Care Of Patient With: Dr. Li - Dr. Li is a physician at [facility]. Time Discussed With Above Provider: 22:00 - Dr. Li will accept the pt for transfer. Instructed by Provider To: Transfer Reason For Transfer: Specialty or service not available at [facility]. - Critical Care Time Critical Care Time: 30-74 min Discharge - Sign-Out/Discharge Documenting (check all that apply): Discharge/Admit/Transfer - Pt will be transferred to [facility]. - Discharge Plan Condition: Stable Disposition: TRANS HIGHER LVL OF CARE FAC Referrals: Kvng Yanez MD [Primary Care Provider] - - Billing Disposition and Condition Condition: STABLE Disposition: Trans Higher Lvl of Care Fac The documentation as recorded by the Nader calhoun Natalie accurately reflects the service I personally performed and the decisions made by me, Antonino Perez MD.
[2018-02-10 23:26] VITALS: BP 117/87
== END 2018-02-10 23:27 | disposition short-term general hospital (02) ==
LOC: ED 18:07
DX: K92.2 Gastrointestinal hemorrhage, unspecified (principal); E11.9 Type 2 diabetes mellitus without complications; I50.9 Heart failure, unspecified; I25.10 Atherosclerotic heart disease of native coronary artery without angina pectoris; E78.00 Pure hypercholesterolemia, unspecified; I10 Essential (primary) hypertension; K21.9 Gastro-esophageal reflux disease without esophagitis; J45.909 Unspecified asthma, uncomplicated; Z87.442 Personal history of urinary calculi; Z87.891 Personal history of nicotine dependence
CPT/HCPCS: 36415; 71046; 80053; 83605; 84484; 85025; 85610; 86140; 87040; 96374; 96375; 99285; J2405